=== PATIENT | male | born 1975 | race African-American/Black ===

== ENCOUNTER 2016-09-01 19:35 | Inpatient (IN) | payer MEDICAID ==
[~2016-09-01] VITALS: Ht 180.3 cm; Wt 95.0 kg
[2016-09-01] VITALS (7 sets, daily range): BP systolic 109–118; BP diastolic 55–58; PULSE 98–102; RESP 16; O2SAT 98–100
[~2016-09-01 19:35] MED LIST: LACTATED RINGER'S 1000 ML INJ 2,000 ML IV ONE; ONDANSETRON HCL 4 MG/2 ML VIAL IV PUSH ONE; PROPOFOL 200 MG/20 ML AMP IV ONE; SODIUM CHLORID 0.9% 500 ML INJ 500 ML IV ONE
[2016-09-01] MEDS ORDERED: PROPOFOL 1000 MG/100 ML INJ 100 ML ONE (19:39)
[2016-09-01] MEDS ORDERED: LORazepam 2 MG/ML VIAL ONE (19:40)
[2016-09-01] MEDS ORDERED: PROPOFOL 1000 MG/100 ML INJ 100 ML IV SCH (19:45)
--- NOTE | 2016-09-01 19:50 | PD ---
HPI Chief Complaint: headache - unresponsive Time Seen by Provider: 19:37 Travel History International Travel<30 days: No Contact w/Intl Traveler<30days: No History of Present Illness HPI Patient is a 40-year-old male who presents to emergency room after he was intubated on scene. As per EMS, they were called to his work, reports that patient began to have "the worse headache of his life" while taking out the trash today. Reports that the patient went back into his work and started screaming in pain, EMS was called, reports that when they arrived on scene, GCS was 13. Reports that he began to feel nauseous and began to vomit, reports that they put him on the stretcher and once he was in the ambulance, he became unresponsive with a GCS of 3. Patient was immediately intubated with no sedation utilized. Patient was given to sedation on route to the emergency room. There is no history that was able to be obtained at this time. [facility] Social History Tobacco Use: No Allergies-Medications (Allergen,Severity, Reaction): Coded Allergies: UNOBTAINABLE (Unverified , 09/01/16) Review of Systems ROS Limitations: Intubated Physical Exam Narrative GENERAL: severe distress SKIN: Focused skin assessment warm/dry. HEAD: Atraumatic. Normocephalic. EYES: Pupils pinpoint. No scleral icterus. No injection or drainage. No corneal reflexes ENT: No nasal bleeding or discharge. Mucous membranes pink and moist. No gag reflexes NECK: Trachea midline. No JVD. CARDIOVASCULAR: Regular rate and rhythm. No murmur appreciated. RESPIRATORY: No accessory muscle use. Clear to auscultation. Breath sounds equal bilaterally. GASTROINTESTINAL: Abdomen soft, non-tender, nondistended. Hepatic and splenic margins not palpable. MUSCULOSKELETAL: No obvious deformities. No clubbing. No cyanosis. No edema. NEUROLOGICAL: Patient unresponsive, intubated at this time, patient unresponsive to painful stimuli PSYCHIATRIC: Appropriate mood and affect; insight and judgment normal. Data Data Last Documented VS Vital Signs Date Time Temp Pulse Resp B/P Pulse Ox O2 Delivery O2 Flow Rate FiO2 09/01/16 20:48 100 100 09/01/16 20:14 98 16 109/55 09/01/16 20:13 Ventilator Orders Electrocardiogram (09/01/16 19:37) Prothrombin Time / Inr (Pt) (09/01/16 19:37) Act Partial Throm Time (Ptt) (09/01/16 19:37) Complete Blood Count With Diff (09/01/16 19:37) Comprehensive Metabolic Panel (09/01/16 19:37) Creatine Kinase (Cpk) (09/01/16 19:37) Drug Screen, Random Urine (09/01/16 19:37) Troponin I (09/01/16:37) Urinalysis - C+S If Indicated (09/01/16 19:37) Ct Brain W/O Iv Contrast(Rout) (09/01/16 19:37) Chest, Single Ap (09/01/16 19:37) Ecg Monitoring (09/01/16:37) Iv Access Insert/Monitor (09/01/16:37) Oxygen Administration (09/01/16:37) Oximetry (09/01/16:37) Urinary Catheter Insert/Apply (09/01/16 19:37) Blood Glucose (09/01/16 19:37) Propofol 1000 Mg/100 Ml Inj (Diprivan 10 (09/01/16 19:45) Propofol 1000 Mg/100 Ml Inj (Diprivan 10 (09/01/16 19:39) Lorazepam Inj (Ativan Inj) (09/01/16 19:40) Type And Screen (09/01/16 20:05) Levetiracetam Inj (Keppra Inj) (09/01/16 20:15) Nicardipine Inj (Cardene Inj) (09/01/16 20:15) B-Type Natriuretic Peptide (09/01/16 20:18) Blood Culture (09/01/16 20:18) Cta Brain W Iv Contrast W 3d (09/01/16 20:20) Cta Neck W Iv Contrast W 3d (09/01/16 20:20) Urine Culture (09/01/16 20:10) CKMB (09/01/16 19:40) CKMB% (09/01/16 19:40) Arterial Blood Gas (Abg) (09/01/16 ) Thrombin Top Soln (Thrombin Top Soln) (09/01/16 20:50) Bupivacaine-Epi Pf 0.5% Inj (Sensorcaine (09/01/16 20:50) Gelfoam 100 Top (Gelfoam 100 Top) (09/01/16 20:50) Gentamicin Inj (Gentamicin Inj) (09/01/16 20:50) Mannitol Inj (Mannitol Inj) (09/01/16 20:50) Cefazolin Inj (Ancef Inj) (09/01/16 20:51) Admit To Inpatient (09/01/16 ) Code Status (09/01/16 20:52) Vital Signs (Adult) SHANNAN.Q1H (09/01/16 20:52) Activity Bed Rest (09/01/16 20:52) ^ Elevate Head Of Bed (09/01/16 20:52) Neuro Checks . ORDERED (09/01/16 20:52) Intake + Output Q1H (09/01/16 20:52) Bedside Glucose SHANNAN.BGM (09/01/16 20:52) ^ Orogastric Tube (09/01/16 20:52) Diet Npo (09/02/16 Breakfast) Ns + Kcl 20 Meq Inj (Ns + Kcl 20 Meq Inj (09/01/16 20:52) Sodium Chloride 0.9% Flush (Ns Flush) (09/01/16 21:00) Sodium Chloride 0.9% Flush (Ns Flush) (09/01/16 21:00) Acetaminophen (Tylenol) (09/01/16 21:00) Fentanyl Inj (Fentanyl Inj) (09/01/16 21:00) Pantoprazole Inj (Protonix Inj) (09/02/16 09:00) Ondansetron Inj (Zofran Inj) (09/01/16 21:00) Albuterol-Ipratropium Neb (Duoneb Neb) (09/01/16 22:00) Albuterol Neb (Albuterol Neb) (09/01/16 21:00) Complete Blood Count With Diff (09/02/16 04:00) Comprehensive Metabolic Panel (09/02/16 04:00) Magnesium (Mg) (09/02/16 04:00) Phosphorus (Po4) (09/02/16 04:00) Electrocardiogram (09/01/16 ) Completion Engineer / Telemetry SHANNAN.Q8H (09/01/16 20:52) Scd Bilateral/Knee High SHANNAN.BID (09/01/16 20:52) Michael Bilateral/Knee High SHANNAN.QSHIFT (09/01/16 20:52) ^ Initiate Protocol (09/01/16 20:52) ^ Instruction (09/01/16 20:52) Misc Nursing Information (09/01/16 21:00) Chlorhexidine 2% Cloth (Chlorhexidine 2% (09/02/16 04:00) Chlorhexidine 2% Cloth (Chlorhexidine 2% (09/01/16 21:00) Mrsa Pcr Surveillance (09/01/16 20:52) Inpatient Certification (09/01/16 ) Admit Order (Ed Use Only) (09/01/16 21:03) Iohexol 350 Inj (Omnipaque 350 Inj) (09/01/16 21:04) Labs Laboratory Tests Test 09/01/16 09/01/16 09/01/16 19:40 20:10 20:20 White Blood Count 8.1 TH/MM3 Red Blood Count 5.01 MIL/MM3 Hemoglobin 14.1 GM/DL Hematocrit 41.9 % Mean Corpuscular Volume 83.7 FL Mean Corpuscular Hemoglobin 28.2 PG Mean Corpuscular Hemoglobin 33.8 % Concent Red Cell Distribution Width 14.4 % Platelet Count 233 TH/MM3 Mean Platelet Volume 8.4 FL Neutrophils (%) (Auto) 43.7 % Lymphocytes (%) (Auto) 46.0 % Monocytes (%) (Auto) 7.4 % Eosinophils (%) (Auto) 2.2 % Basophils (%) (Auto) 0.7 % Neutrophils # (Auto) 3.6 TH/MM3 Lymphocytes # (Auto) 3.7 TH/MM3 Monocytes # (Auto) 0.6 TH/MM3 Eosinophils # (Auto) 0.2 TH/MM3 Basophils # (Auto) 0.1 TH/MM3 CBC Comment DIFF FINAL Differential Comment Prothrombin Time 10.8 SEC Prothromb Time International 1.0 RATIO Ratio Activated Partial 22.9 SEC Thromboplast Time Sodium Level 137 MEQ/L Potassium Level 3.1 MEQ/L Chloride Level 101 MEQ/L Carbon Dioxide Level 25.3 MEQ/L Anion Gap 11 MEQ/L Blood Urea Nitrogen 19 MG/DL Creatinine 1.74 MG/DL Estimat Glomerular Filtration 53 ML/MIN Rate Random Glucose 172 MG/DL Calcium Level 8.3 MG/DL Total Bilirubin 0.3 MG/DL Aspartate Amino Transf 43 U/L (AST/SGOT) Alanine Aminotransferase 50 U/L (ALT/SGPT) Alkaline Phosphatase 83 U/L Total Creatine Kinase 670 U/L Creatine Kinase MB 2.3 NG/ML Creatine Kinase MB % 0.3 % Troponin I LESS THAN 0.02 NG/ML B-Type Natriuretic Peptide 13 PG/ML Total Protein 7.3 GM/DL Albumin 3.3 GM/DL Urine Color YELLOW Urine Turbidity CLEAR Urine pH 6.0 Urine Specific [place] 1.016 Urine Protein 300 mg/dL Urine Glucose (UA) NEG mg/dL Urine Ketones NEG mg/dL Urine Occult Blood TRACE Urine Nitrite NEG Urine Bilirubin NEG Urine Urobilinogen LESS THAN 2.0 MG/DL Urine Leukocyte Esterase NEG Urine RBC 2 /hpf Urine WBC 4 /hpf Urine Bacteria OCC /hpf Urine Mucus FEW /lpf Microscopic Urinalysis Comment CATH-CULTURE IND Urine Opiates Screen NEG Urine Barbiturates Screen NEG Urine Amphetamines Screen NEG Urine Benzodiazepines Screen NEG Urine Cocaine Screen NEG Urine Cannabinoids Screen NEG Blood Type B NEGATIVE Antibody Screen NEGATIVE Blood Bank Comment Blood Gas Puncture Site RT RADIAL Blood Gas Patient Temperature 98.6 Blood Gas HCO3 25 mmol/L Blood Gas Base Excess -0.2 mmol/L Blood Gas Oxygen Saturation 98 % Arterial Blood pH 7.35 Arterial Blood Partial 46 mmHg Pressure CO2 Arterial Blood Partial 178 mmHG Pressure O2 Arterial Blood Oxygen Content 19.0 Vol % Arterial Blood 0.6 % Carboxyhemoglobin Arterial Blood Methemoglobin 0.8 % Blood Gas Hemoglobin 13.6 G/DL Oxygen Delivery Device VENTILATOR Blood Gas Ventilator Setting Blood Gas Inspired Oxygen 100 % MDM Medical Decision Making Medical Screen Exam Complete: Yes Emergency Medical Condition: Yes Interpretation(s) EKG at 2003: NSR at 97bpm, qt/qtc: 370, 424, nonspecific t wave changes CBC & BMP Diagram 09/01/16 19:40 Differential Diagnosis Intracerebral hemorrhage, CVA Narrative Course 40-year-old male who presents to emergency room after he complained of the worst headache of his life while at work today, patient apparently was yelling and screaming in pain, when EMS arrived on scene, patient decompensated and went from a GCS of 13 to a GCS of 3. Patient had a rapid deterioration of mental status and was ultimately intubated for airway protection. While in the emergency room, patient was sent for CT as there was concerns for extra cerebral hemorrhage. I did order sedation initially,patient was given to patient as patient is not responding to any painful or verbal stimuli. Patient was placed on a teletypesetter monitor, blood pressure was 115/58, heart rate was 97, patient was 100% on the ventilator. EKG, lab work ordered, type and screen ordered. CT of the brain without IV contrast shows a large high density hemorrhage in the right cerebellar hemisphere measuring 5.3 x 4.9 cm in diameter with surrounding edema and mass effect. The fourth ventricle is compressed and obscured. There is hemorrhage extending into the right suprasellar cistern region with asymmetry. Call made to neurosurgery. Patient was given a bolus of keppra, cardene gtt ordered for blood pressure control Case reviewed with Dr. Ovalles, he will review case, plan to take patient to OR, request CT angio to evaluate further for aneurysms, request admission to medicine service Patient's at bedside, plan to obtain cta and OR for evacuation of ICH. Case reviewed with Dr. Hernandez who accepts pt to service Critical Care Narrative Aggregate critical care time was 60 minutes. Time to perform other separately billable procedures was not included in the critical care time. My time did not include minutes spent treating any other patients simultaneously or on activities that did not directly contribute to the patient's treatment. The services I provided to this patient were to treat and/or prevent clinically significant deterioration that could result in: , decompensation, deterioration I provided critical care services requiring my management, as noted below: Chart data review, documentation time, medication orders and management, vital sign assessments/reviewing monitor data, ordering and reviewing lab tests, ordering and interpreting/reviewing x-rays and diagnostic studies, care of the patient and discussion of the patient with the admitting physicians. Diagnosis Primary Impression: Spontaneous intraparenchymal intracranial hemorrhage, acute Admitting Information Admitting Physician Requests: Admit Kathy Giles DO September 01, 2016 19:50
[2016-09-01 19:57] LABS: AUTOMATED NEUTROPHIL # 3.6 TH/MM3 (1.8-7.7); BASOPHIL # 0.1 TH/MM3 (0-0.2); BASOPHIL % 0.7 % (0.0-2.0); EOSINOPHIL # 0.2 TH/MM3 (0-0.4); EOSINOPHIL % 2.2 % (0.0-4.0); HEMATOCRIT 41.9 % (39.0-51.0); HEMO FLAGS DIFF FINAL; LYMPHOCYTE # 3.7 TH/MM3 (1.0-4.8); MEAN CELL VOLUME 83.7 FL (80.0-100.0); MEAN CORPUSCULAR HEMOGLOBIN 28.2 PG (27.0-34.0); MEAN CORPUSCULAR HGB CONC 33.8 % (32.0-36.0); MONO % 7.4 % (0.0-8.0); NEUT % 43.7 % (16.0-70.0); PLATELET COUNT 233 TH/MM3 (150-450); RED BLOOD COUNT 5.01 MIL/MM3 (4.50-5.90); RED CELL DISTRIBUTION WIDTH 14.4 % (11.6-17.2); WHITE BLOOD COUNT 8.1 TH/MM3 (4.0-11.0)
--- NOTE | 2016-09-01 19:57 | RADRPT ---
EXAM DATE/TIME: 09/01/2016 19:46 1 [facility] COMPARISON: No previous studies available for comparison. INDICATIONS : Evaluate for CVA. RADIATION DOSE: 56.39 CTDIvol (mGy) MEDICAL HISTORY : Non-responsive. SURGICAL HISTORY : Non-responsive. ENCOUNTER: Initial ACUITY: 1 day PAIN SCALE: Non-responsive LOCATION: Bilateral cranial TECHNIQUE: Multiple contiguous axial images were obtained of the head. Using automated exposure control and adj ustment of the mA and/or kV according to patient size, radiation dose was kept as low as reasonably a chievable to obtain optimal diagnostic quality images. FINDINGS: There is a large high density hemorrhage in the right cerebellar hemisphere measuring up to 5.3 x 4.9 cm in diameter. There is surrounding edema with mass effect. The fourth ventricle is compressed and obscured. There is hemorrhage extending into the right suprasellar cistern region. The lateral ventri cles are at the upper limits of normal. No additional bleed is identified. The bone windows demonstra te no evidence of fracture. CONCLUSION: Large acute high density hemorrhage in the right cerebellar hemisphere with mass effe ct on the fourth ventricle. There is hemorrhage extending into the right suprasellar cisterns with as ymmetry. Ag Saxena MD on September 01, 2016 at 19:53 Board Certified Radiologist. This report was verified electronically.
--- NOTE | 2016-09-01 20:07 | RADRPT ---
EXAM DATE/TIME: 09/01/2016 19:52 [facility] COMPARISON: No previous studies available for comparison. INDICATIONS : Shortness of breath. Metal status changes and acute intracerebral hemorrhage status post intubation. MEDICAL HISTORY : Non-responsive SURGICAL HISTORY : Non-responsive ENCOUNTER: Initial ACUITY: 1 day PAIN SCORE: Non-responsive. LOCATION: Bilateral chest FINDINGS: A single AP semierect portable view of the chest was obtained and demonstrates an endotracheal tube i n place with the tip above the level of clavicles and approximately 4 cm above the level of the jacy a. This study is Midinspiratory with crowding of the lung vasculature. There is mild patchy opacity i n the perihilar regions and lung bases left greater than right. There are air bronchograms in the lef t lung base with obscuration of portions of the hemidiaphragm. The heart size appears within normal l imits. There is overlying electrocardiogram leads. CONCLUSION: 1. Endotracheal tube in place with the tip 4 cm above the dustin. 2. Midinspiratory exam with bilateral patchy opacity left greater than right. This could represent as piration pneumonia or early pulmonary edema. Ag Saxena MD on September 01, 2016 at 20:02 Board Certified Radiologist. This report was verified electronically.
[2016-09-01 20:08] LABS: APTT (PATIENT) 22.9 SEC (24.3-30.1); PROTHROMBIN TIME - PATIENT 10.8 SEC (9.8-11.6)
[2016-09-01] MEDS ORDERED: niCARdipine INJ 25 MG in SODIUM CHLOR 0.9% 250 ML INJ 250 ML IV SCH (20:15)
[2016-09-01] MEDS ORDERED: levETIRAcetam INJ 1,000 MG in SODIUM CHLORIDE 0.9% INJ 100 ML IV ONE (20:15)
[2016-09-01 20:26] LABS: BACTERIA, URINE OCC /hpf; BLOOD, URINE TRACE (NEG); GLUCOSE,URINE NEG (NEG); KETONE, URINE NEG (NEG); MUCUS URINE FEW /lpf (OCC); NITRITE,URINE NEG (NEG); URINE COLOR YELLOW (YELLW/STRAW)
[2016-09-01 20:27] LABS: ALKALINE PHOSPHATASE 83 U/L (45-117); ALT (GPT) 50 U/L (12-78); ANION GAP 11 MEQ/L (5-15); AST (GOT) 43 U/L (15-37); BICARBONATE 25.3 MEQ/L (21.0-32.0); BLOOD UREA NITROGEN 19 MG/DL (7-18); CHLORIDE 101 MEQ/L (98-107); CREATINE KINASE 670 U/L (39-308); GLOMERULAR FILTRATION RATE 53 ML/MIN (>89); POTASSIUM 3.1 MEQ/L (3.5-5.1); SODIUM (NA) 137 MEQ/L (136-145); TOTAL BILIRUBIN ADULT 0.3 MG/DL (0.2-1.0)
[2016-09-01 20:27] LABS: COMMENT (UR) CATH-CULTURE IND; CULTURE IF INDICATED CATH CULTURE IND
[2016-09-01 20:32] LABS: AMPHETAMINE, URINE NEG (NEG); BARBITURATES, URINE NEG (NEG); COCAINE, URINE NEG (NEG)
[2016-09-01 20:38] LABS: BLOOD GAS BASE EXCESS -0.2 mmol/L (-2-2); BLOOD GAS CARBOXYHEMOGLOBIN 0.6 % (0-4); BLOOD GAS HCO3 25 mmol/L (22-26); BLOOD GAS METHEMOGLOBIN 0.8 % (0-2); BLOOD GAS O2 HGB SATURATION 98 % (90-100); BLOOD GAS PCO2 46 mmHg (38-42); BLOOD GAS PO2 178 mmHG (61-120); BLOOD GAS TOTAL HGB 13.6 G/DL (12.0-16.0); CRITICAL VALUE NO; DRAW SITE RT RADIAL; FIO2 100 %; NUMBER OF ARTERIAL PUNCTURES 1; OXYGEN DEVICE VENTILATOR; STAT YES; TEMP CORR TO 98.6; ULNAR PULSE PRESENT
[2016-09-01 20:40] LABS: CKMB 2.3 NG/ML (0.5-3.6)
[2016-09-01] MEDS ORDERED: THROMBIN (TOPICAL) 5,000 UNIT VIAL ONE (20:50)
[2016-09-01] MEDS ORDERED: GELFOAM SIZE 100 ONE (20:50)
[2016-09-01] MEDS ORDERED: BUPIVACAINE/EPINEPHRINE 0.5% PF 30 ML VIAL ONE (20:50)
[2016-09-01] MEDS ORDERED: MANNITOL INJ 50 ML ONE (20:50)
[2016-09-01] MEDS ORDERED: GENTAMICIN SULFATE 80 MG/2 ML VIAL ONE (20:50)
[2016-09-01] MEDS ORDERED: ceFAZolin INJ 1,000 MG VIAL ONE (20:51)
[2016-09-01] MEDS ORDERED: SODIUM CHLORIDE 0.9% FLUSH 10 ML FLUSH PRN (21:00)
[2016-09-01] MEDS ORDERED: ACETAMINOPHEN 325 MG TAB OG-TUBE PRN (21:00)
[2016-09-01] MEDS ORDERED: CHLORHEXIDINE GLUCONATE 2 % 1 PACK (2 CLOTHS) TOP PRN (21:00)
[2016-09-01] MEDS ORDERED: ONDANSETRON HCL 4 MG/2 ML VIAL IV PRN (21:00)
[2016-09-01] MEDS ORDERED: MISCELLANEOUS NURSING INFORMATION XX SCH (21:00)
[2016-09-01] MEDS ORDERED: IOHEXOL 350 MG/ML 10 ML VIAL (for RAD DIAG) IV ONE (21:04)
[2016-09-01] MEDS ORDERED: POTASSIUM PHOSPHATE MONOBASIC 500 MG TAB PO/TUBE PRN (21:15)
[2016-09-01] MEDS ORDERED: POTASSIUM CHLORIDE 25 MEQ EFFERVESCENT TAB PO PRN (21:15)
[2016-09-01] MEDS ORDERED: DEXTROSE 50% IN WATER 50 ML VIAL(D50) IV PRN (21:15)
[2016-09-01] MEDS ORDERED: POTASSIUM CHLOR 20 MEQ PREMIX 100 ML IV PRN ×2 (21:15)
[2016-09-01] MEDS ORDERED: POTASSIUM CHLOR 40 MEQ PREMIX 100 ML IV PRN (21:15)
[2016-09-01] MEDS ORDERED: SODIUM PHOSPHATE INJ 30 MMOL in SODIUM CHLOR 0.9% 250 ML INJ 240 ML IV PRN (21:15)
[2016-09-01] MEDS ORDERED: POTASSIUM PHOSPHATE MONOBASIC 500 MG TAB PO PRN (21:15)
[2016-09-01] MEDS ORDERED: MAGNESIUM SULFATE INJ 4 GM in SODIUM CHLORIDE 0.9% INJ 92 ML IV PRN (21:15)
[2016-09-01] MEDS ORDERED: GLUCAGON 1 MG/ML VIAL OTHER PRN (21:15)
[2016-09-01] MEDS ORDERED: MAGNESIUM OXIDE 400 MG TAB PO PRN (21:15)
[2016-09-01] MEDS ORDERED: MAGNESIUM SULFATE INJ 2 GM in SODIUM CHLORIDE 0.9% INJ 96 ML IV PRN (21:15)
--- NOTE | 2016-09-01 21:23 | HHI.HP ---
[facility] Service Critical Care Medicine Primary Care Physician Unknown Admission Diagnosis Diagnosis: Travel History International Travel<30 Days: No Contact w/Intl Traveler <30 Da: No Traveled to Known Affected Are: No History of Present Illness 40-year-old male with reportedly no significant past medical history who was at work today and was taking out the garbage when he developed "the worse headache of his life". He was screaming in pain and [facility] was called. Upon [facility] arrival his GCS was 13 but rapidly deteriorated to GCS 3. He vomited. He was intubated on the scene without any drugs. CT brain demonstrated a large right cerebellar hemorrhage (4.9 x 5.7 cm) with effacement of the fourth ventricle. He has a very poor neurologic exam with absence of pupillary, corneal, gag, cough, oculocephalic reflexes. Not overbreathing vent but did not formally test apnea. Dr. Ovalles discussed with and she is requesting operative management. He is being taken for emergent CT angiogram and then to OR for evacuation by Dr. Ovalles. Review of Systems ROS Limitations: Clinical Condition, Intubated, Altered Mental Status, Unresponsive Past Family Social History Allergies: Coded Allergies: UNOBTAINABLE (Unverified , 09/01/16) Past Medical History Has been seeing a urologist for urinary incontinence Past Surgical History Sinus surgery ~ 10 years ago. states he was hospitalized for 2 months for this. Reported Medications None Family History unaware of any significant family medical history. 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 SKIN: Warm and dry. HEAD: Atraumatic. Normocephalic. EYES: Pupils 1 mm nonreactive bilaterally. No scleral icterus. No injection or drainage. ENT: No nasal bleeding or discharge. Mucous membranes pink and moist. NECK: Trachea midline. No JVD. CARDIOVASCULAR: . RESPIRATORY: GASTROINTESTINAL: Abdomen soft, non-tender, nondistended. Bowel sounds hypoactive : Kumar in place MSK: No obvious deformity. No edema NEUROLOGICAL: Pupils 1 mm nonreactive bilaterally. No corneal reflex, no gag, no cough, no oculocephalic reflex, no motor response to deep noxious stimuli. Laboratory Laboratory Tests Test 09/01/16 09/01/16 09/01/16 19:40 20:10 20:20 White Blood Count 8.1 Red Blood Count 5.01 Hemoglobin 14.1 Hematocrit 41.9 Mean Corpuscular Volume 83.7 Mean Corpuscular Hemoglobin 28.2 Mean Corpuscular Hemoglobin 33.8 Concent Red Cell Distribution Width 14.4 Platelet Count 233 Mean Platelet Volume 8.4 Neutrophils (%) (Auto) 43.7 Lymphocytes (%) (Auto) 46.0 Monocytes (%) (Auto) 7.4 Eosinophils (%) (Auto) 2.2 Basophils (%) (Auto) 0.7 Neutrophils # (Auto) 3.6 Lymphocytes # (Auto) 3.7 Monocytes # (Auto) 0.6 Eosinophils # (Auto) 0.2 Basophils # (Auto) 0.1 CBC Comment DIFF FINAL Differential Comment Prothrombin Time 10.8 Prothromb Time International 1.0 Ratio Activated Partial 22.9 Thromboplast Time Sodium Level 137 Potassium Level 3.1 Chloride Level 101 Carbon Dioxide Level 25.3 Anion Gap 11 Blood Urea Nitrogen 19 Creatinine 1.74 Estimat Glomerular Filtration 53 Rate Random Glucose 172 Calcium Level 8.3 Total Bilirubin 0.3 Aspartate Amino Transf 43 (AST/SGOT) Alanine Aminotransferase 50 (ALT/SGPT) Alkaline Phosphatase 83 Total Creatine Kinase 670 Creatine Kinase MB 2.3 Creatine Kinase MB % 0.3 Troponin I LESS THAN 0.02 Total Protein 7.3 Albumin 3.3 Urine Color YELLOW Urine Turbidity CLEAR Urine pH 6.0 Urine Specific [place] 1.016 Urine Protein 300 Urine Glucose (UA) NEG Urine Ketones NEG Urine Occult Blood TRACE Urine Nitrite NEG Urine Bilirubin NEG Urine Urobilinogen LESS THAN 2.0 Urine Leukocyte Esterase NEG Urine RBC 2 Urine WBC 4 Urine Bacteria OCC Urine Mucus FEW Microscopic Urinalysis Comment CATH-CULTURE IND Urine Opiates Screen NEG Urine Barbiturates Screen NEG Urine Amphetamines Screen NEG Urine Benzodiazepines Screen NEG Urine Cocaine Screen NEG Urine Cannabinoids Screen NEG Blood Gas Puncture Site RT RADIAL Blood Gas Patient Temperature 98.6 Blood Gas HCO3 25 Blood Gas Base Excess -0.2 Blood Gas Oxygen Saturation 98 Arterial Blood pH 7.35 Arterial Blood Partial 46 Pressure CO2 Arterial Blood Partial 178 Pressure O2 Arterial Blood Oxygen Content 19.0 Arterial Blood 0.6 Carboxyhemoglobin Arterial Blood Methemoglobin 0.8 Blood Gas Hemoglobin 13.6 Oxygen Delivery Device VENTILATOR Blood Gas Ventilator Setting Blood Gas Inspired Oxygen 100 Date/Time Procedure Status Source Growth 09/01/16 20:10 Urine Culture Received Urine Catheterized Urine Pending Result Diagram: 09/01/16193909/01/161939 Assessment and Plan Assessment and Plan NEURO: Acute cerebellar hemorrhage (ICH Score 4) CT brain 09/01/16 - 4.9 x 5.3 cm right cerebellar hemorrhage with effacement of the fourth ventricle. CTA 09/01/16 - No e/o vascular abnormality. s/p Suboccipital craniectomy, cerebellar hemorrhage evacuation, ventriculostomy by Dr. Ovalles 09/01/16 Ventric at + 10 cm H20 per NSG, ICP 7 Received Keppra 1000 mg IV load in the emergency department. Continue Keppra 500 mg IV every 12 Mannitol 50 gram IV preoperatively 3% NaCl @ 30 ml/hr with serial sodium and serum osm. Maintain normothermia with Ofirmev/cooling blanket prn temp >100.4. (Ofirmev chosen due to vomiting, can transition to enteral tylenol when clinically appropriate) GCS 3 preoperatively and postoperatively. Preoperatively, had absent brainstem reflexes. Postoperatively, gag and cough present but lacks pupil, corneal, oculocephalic reflex. Initially on no sedation in ED or ISC. Initiated Propofol due to gagging and vomiting, coughing. Target RASS -2, patient comfort and vent synchrony, RESP: Acute respiratory failure Aspiration Intubated at the scene by E VAC with no sedation End tidal CO2 monitoring. Target PaCO2 35-40. Currently at target on PRVC TV 550 R 20 PEEP 5 FIO2 50% Duoneb q6 hours; Albuterol q2 hours prn wheezing CV: Malignant Hypertension Labetalol 10 mg IV q4 hours prn SBP <150. Nicardipine to maintain systolic blood pressure less than 150 Obtain baseline EKG. GI: Vomiting OG tube to low intermittent wall suction Zofran 4 mg IV q6 hours FEN/RENAL: Renal insufficiency, unknown baseline creatinine Hypokalemia 0.9 NaCl at 20 mEq of KCl per liter at 100 mL per hour Kumar in place due to critically ill patient in need of accurate I/O monitoring and at risk for urinary obstruction Monitor I/O and creatinine Monitor electrolytes and replace as indicated per ICU electively replacement protocol. ID: Received Perioperative cefazolin. U/a with occasional bacteria, culture indicated, followup urine culture. Large amount of sputum production and e/o aspiration. Send sputum culture. Unasyn 3 gram IV q6 hours. HEME: Monitor CBC, post op CBC pending. Coags WNL. Patient was not on anticoagulant or antiplatelet therapy. ENDO: Acute stress hyperglycemia Monitor bedside glucose and initiate low-dose insulin sliding scale as indicated PROPH: SCDs and teds for DVT prophylaxis. Pharmacologic DVT prophylaxis is contraindicated due to acute cerebellar hemorrhage. Protonix 40 mg IV daily for stress ulcer prophylaxis. ACCESS: Left radial art line placed in OR 09/01 #1. updated at bedside. She is aware of poor prognosis for functional recovery based on presenting GCS. She remains hopeful. Desires full code. Critical care time 60 minutes exclusive of separately billable procedures. Freda Hernandez MD September 01, 2016 21:23
[2016-09-01] MEDS: RESP: ALBUTEROL 2.5 MG/IPRATROPIUM 0.5 MG NEB (SCH) INH (21:37)
--- NOTE | 2016-09-01 21:43 | MB ---
cc: JA MATA M.D. DATE OF CONSULTATION 09/01/2016 REASON FOR CONSULTATION Cerebellar hemorrhage HISTORY OF PRESENT ILLNESS A 40-year-old -Japanese gentleman who presented to the emergency room with a Greenfield coma score of three comatose. He had an acute decline in his mental status, initially started out with a headache while at work and subsequently progressively worsened, confusion and nausea and vomiting. On presentation to the emergency room, he was intubated and he was hypertensive initially. The systolic blood pressure was in the 170s. CT scan of the head obtained reveals a large right cerebellar hemisphere approximately 5 cm hemorrhage which extends into the lateral portion of the brainstem/isaac. There is compression of the fourth ventricle, although mild hydrocephalus with some temporal horn dilatation. In communication with the family remembers and , he does not appear have any significant past medical history. PAST MEDICAL HISTORY Hypertension, transient loss of vision following sinusitis 10 years ago. MEDICATIONS He was prescribed medications for his hypertension but he was having some urinary issues and was not taking these medications as per his . ALLERGIES NO KNOWN DRUG ALLERGIES SOCIAL HISTORY He is . His is here and other family members are on their way. He drinks alcohol on occasional basis and does not smoke. REVIEW OF SYSTEMS Unobtainable. The patient is comatose. LABORATORY FINDINGS White blood cell count 8.1, hemoglobin 14.1, platelet count 233, PT 10.8, INR 1.0, PT 22.9. Sodium 137, potassium 3.1, BUN 19, creatinine 1.74, glucose 172. PHYSICAL EXAMINATION VITAL SIGNS: Pulse is 98. Respiratory rate 16, blood pressure 109/55, oxygen saturations 100% on 100% FIO2. HEAD: No Jackson's or raccoon sign, atraumatic. NECK: Supple. CHEST: Clear bilaterally HEART: Mild tachycardia, normal S1, S2. ABDOMEN: Soft, nontender. EXTREMITIES: No cyanosis, edema or deformity or trauma. NEUROLOGIC: He does not open his eyes to painful stimulation. He has not received any sedation or muscle validation at this point. Pupils are pinpoint and nonreactive. He has negative corneal reflex. Negative doll's reflex. Negative gag reflex. Negative cough reflex and no motor response to painful stimulation. No spontaneous respirations over the ventilator are noted. Greenfield coma score is 3 with loss of brainstem reflexes. IMPRESSION Large right cerebellar hemisphere hemorrhage with extension into the brainstem in the lateral portion of the isaac with some mild hydrocephalus. This is likely a hypertensive bleed, although cannot rule out any underlying vascular malformation or abnormality. This is unfortunately a devastating injury. PLAN I have discussed the findings with the patient's at the bedside as well as this has also been related by the emergency room physician that his prognosis is very poor irrespective of any further treatment. The inquired about possible hematoma evacuation which she was informed this could be undertaken but would be a very heroic measure and very low likelihood of any functional recovery. She would like to entertain surgical decompression. We will continue with hyperventilation. He has received mannitol and keep his head of bed elevated. The operating room has been notified and they are assembling an emergency team for the procedure. We will also in the meantime obtain a CT angiogram of the brain to rule out any underlying vascular abnormality. Discussed with emergency room physician, Dr. Giles, and pianos and organs salesperson, Dr. Hernandez. MD MAJOR Gutiérrez/ /9:23 PM /9:31 PM ELMO
[2016-09-01] MEDS ORDERED: ceFAZolin INJ 1,000 MG VIAL IV ONE (21:47)
[2016-09-01] MEDS: INSULIN ASPART SUPPLEMENTAL SCALE SQ SCH (22:00)
[2016-09-01] MEDS ORDERED: fentaNYL CITRATE 250 MCG/5 ML AMP ONE (22:49)
--- NOTE | 2016-09-01 22:57 | RADRPT ---
EXAM DATE/TIME: 09/01/2016 20:55 [facility] COMPARISON: No previous studies available for comparison. INDICATIONS : Evaluate for anuerysm. IV CONTRAST: 80 cc Omnipaque 350 (iohexol) IV ; Cumulative dose for multiple exams. RADIATION DOSE: 28.76 CTDIvol (mGy) ; Combined studies MEDICAL HISTORY : Non-responsive. SURGICAL HISTORY : Non-responsive. ENCOUNTER: Initial ACUITY: 1 day PAIN SCALE: Non-responsive LOCATION: carotids Elevated flow velocities and ICA/CCA ratios have been found to correlate with increased degrees of vessel stenosis, calculated as percentage of diameter relative to a normal segment of distal ICA/CCA. TECHNIQUE: Volumetric scanning was performed using a multirow detector CT scanner. The data was post processed with a variety of visualization algorithms including full-volume maximum intensity projection, multip lanar sliding thin-slab reformation, curved-planar reformation, and surface-rendering techniques. Us ing automated exposure control and adjustment of the mA and/or kV according to patient size, radiatio n dose was kept as low as reasonably achievable to obtain optimal diagnostic quality images. FINDINGS: AORTIC ARCH: There is a three-vessel origin of the great vessels from the aorta. No evidence of ostial narrowing. RIGHT CAROTID: The common carotid artery is intact. The carotid bulb has a normal configuration without ulceration o r narrowing. The internal carotid artery lumen is smooth without stenosis. The external carotid shelby ry is intact. LEFT CAROTID: The common carotid artery is intact. The carotid bulb has a normal configuration without ulceration or narrowing. The internal carotid artery lumen is smooth without stenosis. The external carotid ar kris is intact. VERTEBRALS: The vertebral arteries have a symmetric diameter. No stenotic lesions are seen. CONCLUSION: Unremarkable exam. The carotid arteries are intact. Ag Saxena MD on September 01, 2016 at 22:53 Board Certified Radiologist. This report was verified electronically.
--- NOTE | 2016-09-01 23:07 | RADRPT ---
EXAM DATE/TIME: 09/01/2016 20:55 [facility] COMPARISON: CHEST SINGLE AP, September 01, 2016, 19:52. CT BRAIN W/O CONTRAST, September 01, 2016, 19:46. INDICATIONS : Evaluate for aneurysm. IV CONTRAST: 80 cc Omnipaque 350 (iohexol) IV ; Cumulative dose for multiple exams. RADIATION DOSE: 28.76 CTDIvol (mGy) ; Combined studies MEDICAL HISTORY : Non-responsive. SURGICAL HISTORY : Non-responsive. ENCOUNTER: Initial ACUITY: 1 day PAIN SCALE: Non-responsive LOCATION: cranial TECHNIQUE: Volumetric scanning was performed using a multi-row detector CT scanner. The data was post processed with a variety of visualization algorithms including full volume maximum intensity projection, multi -planar sliding thin slab reformation, curved planar reformation, and surface rendering techniques. Using automated exposure control and adjustment of the mA and/or kV according to patient size, radiat ion dose was kept as low as reasonably achievable to obtain optimal diagnostic quality images. FINDINGS: There is excellent visualization of the major intracranial arteries out to the second-order branch ve ssels. There is no evidence for aneurysm, vessel truncation or stenosis, and no evidence for vascula r malformation. Large hemorrhage in the right cerebellum is identified with significant mass effect on midbrain and f ourth ventricle. The upper chest is visualized and there is some degree of infiltrate in the upper cristina ngs and possibly pleural effusions bilaterally. CONCLUSION: The etiology of the patient's right cerebellar h hemorrhage is not identified and there appears to be some infiltrates and possible pleural effusions in the upper lungs that are visualized. Erika Bob MD on September 01, 2016 at 22:57 Board Certified Radiologist. This report was verified electronically.
--- NOTE | 2016-09-01 23:15 | PD.OP ---
Operative Report Date of Surgery: September 01, 2016 Preoperative Diagnosis: Large right cerebellar hemisphere hemorrhage with extension into the isaac Postoperative Diagnosis: Same Procedure: Right suboccipital craniectomy with evacuation of cerebellar hemorrhage; right frontal bur hole ventriculostomy placement; microsurgical technique Anesthesia: Gen. endotracheal by Rut Kowalski Surgeon: Gutierrez Ovalles M.D. Hydrographic Surveyor(s): Tan Fountain Operation and Findings: Following administration of general endotracheal anesthesia, 2 g Ancef intravenously was administered and patient received mannitol prior to this. After invasive lines were placed he was turned on a lateral position with beanbags with an axillary roll and right side up on headrest with the neck slightly flexed. The posterior occipital region and right frontal region was then shaved and prepped with ChloraPrep and sterilely draped. A linear paramedian incision was then made after infiltrating the scalp with 0.5% Marcaine with epinephrine incision extending down through the galea. The occipital fascia also incised and the muscle fibers split in the midline avascular plane and detached from the occipital bone down to the foramen magnum. Using an M2 drill bar craniectomy was undertaken and bone wax at the edges for hemostasis. The dura was opened in a Y-shaped format. Further dissection was undertaken using microtechnique with microscope magnification. A corticectomy was made in the cerebellar hemisphere and organized hematoma along with the hemolyzed blood was encountered under significant pressure. The hematoma was evacuated and and CSF also drained from the cisterna magna to decompress the posterior fossa. After evacuation of the hematoma the hematoma bed was then cauterized with bipolar cautery and Gelfoam and thrombin also used for hemostasis. The cerebellar hemisphere was more relaxed and pulsatile at this point. The dura was approximated using 4 Nurolon interrupted sutures in a watertight fashion. Compressed Gelfoam along with the of DuraSeal was used for reinforcement of the durotomy. The bone dust from the craniectomy was then packed reconstructing the cranial defect. The area prior to this copiously irrigated. The muscle fascia was approximated using 2-0 Vicryl in a sutures in the galea partially using 2-0 Vicryl in a stitches and finds concords with john. A sterile dressing was then applied and she was in turn in a supine position and the Ewing headrest removed. The right frontal region was then shaved and prepped with ChloraPrep and sterilely draped. Using landmarks of 11 cm behind the nasion and 3 cm right of the midline a 2 cm scalp incision was made after infiltrating with 0.5% Marcaine with epinephrine solution. Using the drill bit the bur hole was made and the underlying dura also opened. Bactiseal ventriculostomy catheter was then passed into the lateral ventricle using ipsilateral pupillary midline and the external auditory meatus is landmarks and blood-tinged CSF was expressed with opening pressure this point 18 cm of water. The distal end of the catheter was tunneled with a trocar and secured the exit site and the scalp incision was approximated using john. Sterile pressure dressing was then applied and he was then taken to recovery room. There were no intraoperative complications and all sponge and needle count was correct at the end of the procedure. Estimated blood loss 200 cc. Gutierrez Ovalles MD September 01, 2016 23:15
[2016-09-02] VITALS (18 sets, daily range): BP systolic 130–141; BP diastolic 72–94; PULSE 76–100; RESP 18–20; TEMP 96.8–100.4; O2SAT 100
[2016-09-02] MEDS: NS + KCL 20 MEQ INJ 1,000 ML IV SCH ×3 (00:34→20:15)
[2016-09-02] MEDS: SODIUM CHLORIDE 0.9% FLUSH 10 ML FLUSH SCH ×3 (00:34→20:46)
[2016-09-02 00:37] LABS: HEMATOCRIT 43.4 % (39.0-51.0); MEAN CELL VOLUME 83.2 FL (80.0-100.0); MEAN CORPUSCULAR HEMOGLOBIN 27.6 PG (27.0-34.0); MEAN CORPUSCULAR HGB CONC 33.2 % (32.0-36.0); PLATELET COUNT 239 TH/MM3 (150-450); RED BLOOD COUNT 5.21 MIL/MM3 (4.50-5.90); RED CELL DISTRIBUTION WIDTH 14.4 % (11.6-17.2); REVIEW FLAG FINAL; WHITE BLOOD COUNT 14.4 TH/MM3 (4.0-11.0)
[2016-09-02] MEDS: AMPICILLIN-SULBACTAM INJ 3 GM in SODIUM CHLORIDE 0.9% INJ 100 ML IV SCH ×4 (00:37→17:51)
[2016-09-02 00:52] LABS: BICARBONATE 23.3 MEQ/L (21.0-32.0); POTASSIUM 3.2 MEQ/L (3.5-5.1)
[2016-09-02 00:57] LABS: BLOOD GAS BASE EXCESS -3.6 mmol/L (-2-2); BLOOD GAS CARBOXYHEMOGLOBIN 0.7 % (0-4); BLOOD GAS HCO3 21 mmol/L (22-26); BLOOD GAS METHEMOGLOBIN 0.8 % (0-2); BLOOD GAS O2 HGB SATURATION 97 % (90-100); BLOOD GAS OXYGEN CONTENT 20.6 Vol % (12.0-20.0); BLOOD GAS PCO2 35 mmHg (38-42); BLOOD GAS PO2 133 mmHG (61-120); CRITICAL VALUE NO; FIO2 40 %; OXYGEN DEVICE VENTILATOR; TEMP CORR TO 98.6
[2016-09-02 00:58] LABS: DRAW SITE ALINE; STAT NO
[2016-09-02 02:14] LABS: MAGNESIUM 1.5 MG/DL (1.5-2.5)
--- NOTE | 2016-09-02 02:16 | PD.PROCEDR ---
Procedure Note Procedure DATE: 09/02/16 CENTRAL LINE PLACEMENT: Left internal jugular vein. INDICATION: Central venous access CONSENT Informed consent for procedure was obtained from patient's after discussion of risks, benefits, alternatives. Signed consent is on the chart. DESCRIPTION OF THE PROCEDURE The patient was placed in supine position, mild Trendelenburg.. The skin was cleansed with Chloraprep. Additional barrier precautions included large sterile drape, sterile gloves, sterile gown, face mask, and hat. 1 % lidocaine was used for local anesthesia. Initial attempts 3 at left subclavian site unsuccessful. Under direct ultrasound guidance and on single attempt, the vein was accessed with an introducer needle. The guide wire was advanced and the tract was dilated. Using Seldinger technique a 7 Maltese 20 cm antimicrobial coated triple-lumen catheter was advanced to a depth of 18 centimeters. The guide wire was removed. All ports had good return of dark venous blood and flushed easily with saline. The central line was secured with 2.0 silk. A sterile dressing with antibiotic disc was applied. ESTIMATED BLOOD LOSS: Minimal COMPLICATIONS: No apparent complications. STAT chest x-ray is pending Freda Hernandez MD September 02, 2016 02:16
[2016-09-02] MEDS: CHLORHEXIDINE GLUCONATE 2 % 1 PACK (2 CLOTHS) TOP SCH (02:34)
[2016-09-02] MEDS: 3% SALINE INJ 500 ML IV SCH ×2 (02:35→16:00)
[2016-09-02] MEDS: POTASSIUM CHLOR 40 MEQ PREMIX 100 ML IV PRN ×2 (02:36→04:54)
--- NOTE | 2016-09-02 03:08 | RADRPT ---
EXAM DATE/TIME: 09/02/2016 02:06 [facility] COMPARISON: CHEST SINGLE AP, September 01, 2016, 19:52. INDICATIONS : Central line placement. MEDICAL HISTORY : None. SURGICAL HISTORY : None. ENCOUNTER: Subsequent ACUITY: 2 days PAIN SCORE: Non-responsive. LOCATION: Bilateral chest FINDINGS: ET tube is present with tip overlapping approximately 4 cm above the dustin. NG tube is present with tip in the stomach. Left IJ line is present with tip overlapping the expected region of the SVC. Ther e is slight improvement in pulmonary edema since the prior examination with residual edema remaining. Heart and mediastinum are unremarkable for technique. CONCLUSION: Improvement in pulmonary edema. Erika Bob MD on September 02, 2016 at 3:05 Board Certified Radiologist. This report was verified electronically.
[2016-09-02] MEDS: PROPOFOL 1000 MG/100 ML INJ 100 ML IV SCH ×5 (03:57→22:29)
[2016-09-02] MEDS: INSULIN ASPART SUPPLEMENTAL SCALE SQ SCH ×4 (04:00→22:00)
[2016-09-02] MEDS: RESP: ALBUTEROL 2.5 MG/IPRATROPIUM 0.5 MG NEB (SCH) INH ×4 (04:12→20:59)
[2016-09-02 05:54] LABS: BLOOD GAS BASE EXCESS -3.7 mmol/L (-2-2); BLOOD GAS CARBOXYHEMOGLOBIN 0.9 % (0-4); BLOOD GAS HCO3 20 mmol/L (22-26); BLOOD GAS METHEMOGLOBIN 1.1 % (0-2); BLOOD GAS O2 HGB SATURATION 97 % (90-100); BLOOD GAS OXYGEN CONTENT 19.9 Vol % (12.0-20.0); BLOOD GAS PCO2 29 mmHg (38-42); BLOOD GAS PO2 135 mmHg (61-120); BLOOD GAS TOTAL HGB 14.5 G/DL (12.0-16.0); TEMP CORR TO 98.6
[2016-09-02 05:55] LABS: CRITICAL VALUE NO; DRAW SITE ALINE; FIO2 30 %; OXYGEN DEVICE VENTILATOR; STAT NO
[2016-09-02 06:59] LABS: AUTOMATED NEUTROPHIL # 13.5 TH/MM3 (1.8-7.7); BASOPHIL % 0.2 % (0.0-2.0); EOSINOPHIL % 0.1 % (0.0-4.0); HEMATOCRIT 42.2 % (39.0-51.0); HEMO FLAGS DIFF FINAL; LYMPH % 4.2 % (9.0-44.0); LYMPHOCYTE # 0.7 TH/MM3 (1.0-4.8); MEAN CELL VOLUME 82.7 FL (80.0-100.0); MEAN CORPUSCULAR HEMOGLOBIN 27.7 PG (27.0-34.0); MEAN CORPUSCULAR HGB CONC 33.4 % (32.0-36.0); MONO % 8.5 % (0.0-8.0); PLATELET COUNT 215 TH/MM3 (150-450); RED CELL DISTRIBUTION WIDTH 14.2 % (11.6-17.2); WHITE BLOOD COUNT 15.5 TH/MM3 (4.0-11.0)
[2016-09-02 07:02] LABS: ALKALINE PHOSPHATASE 56 U/L (45-117); ALT (GPT) 46 U/L (12-78); ANION GAP 10 MEQ/L (5-15); AST (GOT) 33 U/L (15-37); BICARBONATE 22.5 MEQ/L (21.0-32.0); BLOOD UREA NITROGEN 17 MG/DL (7-18); CHLORIDE 106 MEQ/L (98-107); GLOMERULAR FILTRATION RATE 69 ML/MIN (>89); MAGNESIUM 1.4 MG/DL (1.5-2.5); POTASSIUM 4.7 MEQ/L (3.5-5.1); SODIUM (NA) 138 MEQ/L (136-145); TOTAL BILIRUBIN ADULT 0.5 MG/DL (0.2-1.0)
--- NOTE | 2016-09-02 07:50 | HHI.CCPN ---
Subjective Remarks/Hospital Course Hospital Course: 40-year-old male with reportedly no significant past medical history who was at work today and was taking out the garbage when he developed "the worse headache of his life". He was screaming in pain and [facility] was called. Upon [facility] arrival his GCS was 13 but rapidly deteriorated to GCS 3. He vomited. He was intubated on the scene without any drugs. CT brain demonstrated a large right cerebellar hemorrhage (4.9 x 5.7 cm) with effacement of the fourth ventricle. He has a very poor neurologic exam with absence of pupillary, corneal, gag, cough, oculocephalic reflexes. Not overbreathing vent but did not formally test apnea. Dr. Ovalles discussed with and she is requesting operative management. He is being taken for emergent CT angiogram and then to OR for evacuation by Dr. Ovalles. Subjective: 09/02: decompressive craniectomy overnight. per report, when he returned from the OR he apparently had a +gag. this morning remains encephalopathic. Objective Vital Signs Date Time Temp Pulse Resp B/P Pulse Ox O2 Delivery O2 Flow Rate FiO2 09/02/16 06:00 83 09/02/16 04:12 100 30 09/02/16 04:00 97.5 20 132/86 09/01/16 20:13 Ventilator Result Diagram: 09/02/16 0600 09/02/16 0600 Other Results Laboratory Tests Test 09/01/16 09/02/16 09/02/16 20:20 00:22 05:43 Blood Gas Puncture Site RT RADIAL JOEL MALDONADO Blood Gas Patient Temperature 98.6 98.6 98.6 Blood Gas HCO3 25 mmol/L 21 mmol/L 20 mmol/L (22-26) (22-26) (22-26) Blood Gas Base Excess -0.2 mmol/L -3.6 mmol/L -3.7 mmol/L (-2-2) (-2-2) (-2-2) Blood Gas Oxygen Saturation 98 % (90-100) 97 % (90-100) 97 % (90-100) Arterial Blood pH 7.35 7.39 7.45 (7.380-7.420) (7.380-7.420) (7.380-7.420) Arterial Blood Partial 46 mmHg (38-42) 35 mmHg (38-42) 29 mmHg (38-42) Pressure CO2 Arterial Blood Partial 178 mmHG 133 mmHG 135 mmHg Pressure O2 (61-120) (61-120) (61-120) Arterial Blood Oxygen Content 19.0 Vol % 20.6 Vol % 19.9 Vol % (12.0-20.0) (12.0-20.0) (12.0-20.0) Arterial Blood 0.6 % (0-4) 0.7 % (0-4) 0.9 % (0-4) Carboxyhemoglobin Arterial Blood Methemoglobin 0.8 % (0-2) 0.8 % (0-2) 1.1 % (0-2) Blood Gas Hemoglobin 13.6 G/DL 15.0 G/DL 14.5 G/DL (12.0-16.0) (12.0-16.0) (12.0-16.0) Oxygen Delivery Device VENTILATOR VENTILATOR VENTILATOR Blood Gas Ventilator Setting SEE COMMENT SEE COMMENT Blood Gas Inspired Oxygen 100 % 40 % 30 % Objective Remarks GENERAL: male patient who is orotracheally intubated. SKIN: Warm and dry. HEAD: wrapped in bandage which is clean and dry. EYES: Pupils 1 mm nonreactive bilaterally. No scleral icterus. No injection or drainage. ENT: No nasal bleeding or discharge. Mucous membranes pink and moist. NECK: Trachea midline. No JVD. CARDIOVASCULAR: . tachycardic rate, regular rhythm. sinus by tele. RESPIRATORY: PRVC, fio2 40%. equal chest rise. GASTROINTESTINAL: Abdomen soft, non-tender, nondistended. : Kumar in place MSK: No obvious deformity. No edema NEUROLOGICAL: Pupils 1 mm nonreactive bilaterally. moves extremities spontaneously. +gag. does not withdraw or follow commands. GCS 5. A/P Assessment and Plan Assessment: 40yM with large posterior fossa IPH now s/p decompressive posterior fossa craniectomy 09/01. Persistent encephalopathy. very poor prognosis given size and location of the bleed. goals are aggressive. palliative care consulted. very critically ill at this point. NEURO: Acute cerebellar hemorrhage (ICH Score 4) CT brain 09/01/16 - 4.9 x 5.3 cm right cerebellar hemorrhage with effacement of the fourth ventricle. CTA 09/01/16 - No e/o vascular abnormality. s/p Suboccipital craniectomy, cerebellar hemorrhage evacuation, ventriculostomy by Dr. Ovalles 09/01/16 Ventric at + 10 cm H20 per NSG, ICP 7 Continue Keppra 500 mg IV every 12 3% NaCl @ 30 ml/hr with serial sodium and serum osm. Maintain normothermia with Ofirmev/cooling blanket prn temp >100.4. (Ofirmev chosen due to vomiting, can transition to enteral tylenol when clinically appropriate) Target RASS -2, patient comfort and vent synchrony, RESP: Acute respiratory failure Aspiration Intubated at the scene by E VAC with no sedation End tidal CO2 monitoring. Target PaCO2 35-40. Duoneb q6 hours; Albuterol q2 hours prn wheezing no SBT today given cerebral edema and mental status. CV: Malignant Hypertension- resolving. Labetalol 10 mg IV q4 hours prn SBP <150. Nicardipine to maintain systolic blood pressure less than 150 Obtain baseline EKG. GI: Vomiting OG tube to low intermittent wall suction Zofran 4 mg IV q6 hours FEN/RENAL: Renal insufficiency, unknown baseline creatinine Hypokalemia ICU electrolyte protocol Kumar in place due to critically ill patient in need of accurate I/O monitoring and at risk for urinary obstruction Monitor I/O and creatinine Monitor electrolytes and replace as indicated per ICU electively replacement protocol. ID: Received Perioperative cefazolin. U/a with occasional bacteria, culture indicated, followup urine culture. Large amount of sputum production and e/o aspiration. Send sputum culture. Unasyn 3 gram IV q6 hours. HEME: Monitor CBC, post op CBC pending. Coags WNL. Patient was not on anticoagulant or antiplatelet therapy. ENDO: Acute stress hyperglycemia Monitor bedside glucose and initiate low-dose insulin sliding scale as indicated PROPH: SCDs and teds for DVT prophylaxis. Pharmacologic DVT prophylaxis is contraindicated due to acute cerebellar hemorrhage. Protonix 40 mg IV daily for stress ulcer prophylaxis. ACCESS: Left radial art line placed in OR 09/01 Critical care time 49 minutes exclusive of separately billable procedures. Vasile Knight MD September 02, 2016 07:50 Critical care time 60 minutes exclusive of separately billable procedures. Vasile Knight MD September 02, 2016 07:50
[2016-09-02] MEDS: PANTOPRAZOLE SODIUM 40 MG VIAL IV SCH (08:37)
[2016-09-02] MEDS: levETIRAcetam INJ 500 MG in SODIUM CHLORIDE 0.9% INJ 100 ML IV SCH ×2 (08:37→20:47)
[2016-09-02] MEDS: CHLORHEXIDINE 0.12% (ORAL KIT) 15 ML CUP MT SCH ×2 (08:38→20:00)
--- NOTE | 2016-09-02 14:30 | HHI.NSPN ---
Subjective History 40-year-old gentleman postop day #1 status post right suboccipital craniectomy with cerebellar hemorrhage evacuation and ventriculostomy placement. His ICPs have been normal postoperatively. When sedation was held he vomited and was noted to have some eye opening and right-sided movements per the nursing staff. Vitals . Vital Signs Date Time Temp Pulse Resp B/P Pulse Ox O2 Delivery O2 Flow Rate FiO2 09/02/16 14:00 93 09/02/16 12:00 98 09/02/16 12:00 100.0 98 18 134/76 100 09/02/16 11:40 100 30 09/02/16 10:00 91 09/02/16 08:29 100 30 09/02/16 08:20 100 30 09/02/16 08:00 99.1 80 18 140/80 100 09/02/16 08:00 91 09/02/16 07:00 100 Mechanical Ventilator 30 09/02/16 06:00 83 09/02/16 04:12 100 30 09/02/16 04:00 97.5 78 20 132/86 100 09/02/16 04:00 78 09/02/16 02:00 82 09/02/16 00:00 87 09/02/16 00:00 96.8 76 20 130/72 100 09/01/16 21:10 100 100 09/01/16 20:48 100 100 09/01/16 20:48 98 100 09/01/16 20:14 98 16 109/55 100 100 09/01/16 20:13 102 16 118/58 100 100 09/01/16 20:13 100 Ventilator 100 09/01/16 20:01 102 16 118/58 100 09/01/16 19:44 98 100 09/01/16 19:35 98 100 09/01/16 09/01/16 09/02/16 15:00 23:00 07:00 Intake Total 861 ml Output Total 729 ml Balance 132 ml Physical Exam Head Head: Incision Eyes Eyes: Pupils Equal Neuro Mental Status: Comatosed, Sedated Drips: Diprivan @ Pupils: Nonreactive bilaterally Face: Symmetric Neuro Remarks Negative corneal reflex Slight gag reflex Positive cough reflex [place] Coma Scale Best Eye Openin - None Best Verbal: 1 - None Best Motor: 4 - Withdraws to pain Cardiac Cardiac: Regular Rate & Rhythm Respiratory Respiratory: CTA Gastrointestinal Gastrointestinal: Soft, Nontender Genitourinary Genitourinary: Kumar Catheter In Place Musculoskeletal Extremities Upper Extremities Deltoid Bicep Tricep HI W. Ext Right Left Lower Extremeties Ilio Quad Plantar Dorsi EHL Right Left Dermatologic Dermatologic: Skin Intact Extremities Edema: SCDs Objective Infectious Disease Cultures Microbiology Date/Time Procedure Status Source Growth 09/01/16 20:10 Urine Culture - Preliminary Resulted Urine Catheterized Urine RESULTS PENDING 09/02/16 03:44 Aerobic Blood Culture Received Blood Peripheral Pending 09/02/16 03:44 Anaerobic Blood Culture Received Blood Peripheral Pending 09/02/16 03:49 Aerobic Blood Culture Received Blood Peripheral Pending 09/02/16 03:49 Anaerobic Blood Culture Received Blood Peripheral Pending 09/02/16 04:19 Gram Stain - Final Resulted Sputum Endotracheal 09/02/16 04:19 Sputum Culture Resulted Sputum Endotracheal Pending Drains Ventric @: 10 cm H20 Ventric Draining: Blood Tinged CSF Labs Laboratory Tests 09/01/16 19:40 09/02/16 00:20 09/02/16 06:00 09/02/16 11:25 Laboratory Tests Test 09/01/16 09/02/16 09/02/16 09/02/16 19:40 00:20 03:49 06:00 Sodium Level 137 MEQ/L 139 MEQ/L 138 MEQ/L Potassium Level 3.1 MEQ/L 3.2 MEQ/L 4.7 MEQ/L Chloride Level 101 MEQ/L 103 MEQ/L 106 MEQ/L Carbon Dioxide Level 25.3 MEQ/L 23.3 MEQ/L 22.5 MEQ/L Anion Gap 11 MEQ/L 13 MEQ/L 10 MEQ/L Blood Urea Nitrogen 19 MG/DL 18 MG/DL 17 MG/DL Creatinine 1.74 MG/DL 1.60 MG/DL 1.39 MG/DL Estimat Glomerular Filtration 53 ML/MIN 59 ML/MIN 69 ML/MIN Rate Random Glucose 172 MG/DL 166 MG/DL 134 MG/DL Calcium Level 8.3 MG/DL 8.6 MG/DL 8.6 MG/DL Total Bilirubin 0.3 MG/DL 0.5 MG/DL Aspartate Amino Transf 43 U/L 33 U/L (AST/SGOT) Alanine Aminotransferase 50 U/L 46 U/L (ALT/SGPT) Alkaline Phosphatase 83 U/L 56 U/L Total Creatine Kinase 670 U/L Creatine Kinase MB 2.3 NG/ML Creatine Kinase MB % 0.3 % Troponin I LESS THAN 0.02 NG/ML B-Type Natriuretic Peptide 13 PG/ML Total Protein 7.3 GM/DL 7.2 GM/DL Albumin 3.3 GM/DL 3.1 GM/DL Magnesium Level 1.5 MG/DL 1.4 MG/DL Serum Osmolality 301 MOSM/KG 295 MOSM/KG Phosphorus Level 0.6 MG/DL Test 09/02/16 11:25 Sodium Level 140 MEQ/L Serum Osmolality 295 MOSM/KG Laboratory Tests Test 09/01/16 20:10 Urine Opiates Screen NEG Urine Barbiturates Screen NEG Urine Amphetamines Screen NEG Urine Benzodiazepines Screen NEG Urine Cocaine Screen NEG Urine Cannabinoids Screen NEG Assessment & Plan Assessment Large right cerebellar hemisphere spontaneous hemorrhage likely hypertensive with no underlying vascular abnormality noted. He is now postoperative day #1 status post suboccipital craniectomy with cerebellar hemorrhage evacuation and ventriculostomy placement. His ICPs have been normal. There is slight improvement in his exam overnight. Continue with the current treatment measures and supportive care. Discussed with and family at bedside. Gutierrez Ovalles MD September 02, 2016 14:30
--- NOTE | 2016-09-02 15:24 | PD.CONS ---
Consult Service Palliative Care Consult Requested By Dr. Antonia MD. Primary Care Physician Unknown Reason for Consultation a. To assist with evaluation and management of symptoms including: Shortness of breath and debility. b. To assist medical decision maker(s) with: better understanding of current medical conditions; weighing benefits/burdens of medical treatment options; making medical treatment decisions. . (Della Gonzalez) HPI History of Present Illness Palliative care consulted for emotional support and to assist with communication. Mr. Isabel is a 40-year-old male with no significant past medical history who presented to the ED via EMS on 09/01/16. As per medical records and patient's Jaci, patient was working when he started reporting severe headache. He started screaming in pain and EMS was called to is scene. Upon EMS arrival, patient's condition worsened and required emergent intubation. Upon arriving to ED, head CT obtained revealing large acute high density hemorrhage in the right cerebellar hemisphere with extension into the isaac, 5.3cm x 4.9cm in size. Patient with very poor neurological exam but absence of pupillary, corneal, tach and cough reflexes. Neurosurgery -Dr. Ovalles consulted. Patient was subsequently taken to OR for decompressive craniectomy. ED workup to include: * Head CTA, if etiology of patient's right cerebral hemorrhage that identified. Infiltrates and possible pleural effusions in the upper lungs. * Neck CTA, unremarkable. * Chest x-ray revealing bilateral patchy opacities, left greater than right. Likely representing pneumonia for early pulmonary edema. * Negative toxicology report. Negative UA. * Laboratory workup to include WBC 8.1, Hgb 14.1, platelet count 233. Sodium 137, potassium 3.1, BUN/creatinine 19/1.74. BNP 13. Albumin 3.3. Troponin less than 0.02. Patient seen in ICU, he remains orally intubated on mechanical ventilation. Sedated, unresponsive to verbal or tactile stimuli. Jaci bedside. Max temp 100.0 today. Stable hemodynamically. Laboratory today showing WBC 15.5, Hgb 14.1, platelet count 215. Sodium 138, potassium 4.7, BUN/creatinine 17/ 1.39. Met with patient's Jaci outside of the room. Introduce palliative care services in regards to ongoing emotional support and assistance with communication. Reviewed events leading to this hospitalization, clinical course and current medical management. Patient's mother and sister to arrive from [place] tomorrow. Jaci's mother also arriving from out of [facility] to offer support. Discussed with that there is a long road ahead of them and that she might be faced with difficult decisions in the near future. Jaci acknowledges patient's current critical condition, remains hopeful given patient 's clinical improvement since returning from OR. Offered spiritual support for which she accepted. Provided palliative care contact information for any further questions. Palliative care will continue to follow-up as needed. . Function/Cognitive Trajectory Confirmed with patient's Jaci that patient was fully functional and independent with all ADLs. No cognitive decline or impairment reported. . (Della Gonzalez) Review of Systems ROS Limitations: Clinical Condition, Intubated, Unresponsive Constitutional: DENIES: Fatigue, Pain Endocrine: DENIES: Heat/cold intolerance Eyes: DENIES: Eye pain Ears, nose, mouth, throat: DENIES: Hearing loss, Throat pain, Running Nose Respiratory: DENIES: Cough, Shortness of breath Cardiovascular: DENIES: Chest pain, Dyspnea on Exertion, Lower Extremity Edema Gastrointestinal: DENIES: Abdominal pain, Nausea Genitourinary: COMPLAINS OF: Urinary incontinence Musculoskeletal: DENIES: Joint pain Integumentary: DENIES: Abnormal pigmentation Hematologic/Lymphatics: DENIES: Bruising Immunologic/Allergic: DENIES: Eczema Neurologic: COMPLAINS OF: Headache, DENIES: Poor Balance Psychiatric: DENIES: Anxiety (Limited ROS secondary to clinical condition, patient intubated on mechanical ventilation. ROS obtained from patient's , medical records and clinical observation.) Other ROS: Limited ROS secondary to patient's clinical condition, intubated on mechanical ventilation. ROS obtained from patient's , medical records and clinical observation. (Della Gonzalez) Past Family Social History Coded Allergies: UNOBTAINABLE (Unverified , 09/01/16) Past Medical History Chronic sinusitis status post sinus surgery 10 years ago Urinary incontinence. Past Surgical History Sinus surgery over 10 years ago. . Reported Medications None. . Current Medications Medications (Trade) Dose Ordered Sig/Demetris Route Start Time Stop Time Status Last Admin (NS + KCl 20 Meq Inj) 1,000 ml @ 84 mls/hr [id number] IV 09/01/16 20:52 09/02/16 08:38 (NS Flush) 2 ml UNSCH PRN .XX 09/01/16 21:00 (NS Flush) 2 ml BID .XX 09/01/16 21:00 09/02/16 08:38 (Tylenol) 650 mg Q6H PRN OG-TUBE 09/01/16 21:00 Hold (fentaNYL INJ) 50 mcg Q1H PRN IV PUSH 09/01/16 21:00 (Protonix Inj) 40 mg DAILY IV 09/02/16 09:00 09/02/16 08:37 Miscellaneous Information 1 [id number] XX 09/01/16 21:00 (Chlorhexidine 2% Cloth) 3 pack Taper DAILY@04 TOP 09/02/16 04:00 08/29/17 03:59 09/02/16 02:34 Chlorhexidine Gluconate 3 pack 3 pack UNSCH PRN TOP 09/01/16 21:00 Levetriacetam 500 mg/Sodium Chloride 105 ml @ 420 mls/hr Q12HR IV 09/02/16 09:00 09/02/16 08:37 Nicardipine HCl 25 mg/Sodium Chloride 260 ml @ 0 mls/hr TITRATE IV 09/01/16 21:15 Potassium Chloride 100 ml @ 50 mls/hr Q2H PRN IV 09/01/16 21:15 09/02/16 04:54 (KCl 20 Meq Premix Inj) 100 ml @ 50 mls/hr Q2H PRN IV 09/01/16 21:15 Potassium Bicarb/ Potassium Chloride 50 meq 50 meq UNSCH PRN PO 09/01/16 21:15 Potassium Chloride 100 ml @ 25 mls/hr UNSCH PRN IV 09/01/16 21:15 Potassium Chloride 100 ml @ 50 mls/hr Q2H PRN IV 09/01/16 21:15 (Magnesium Sulfate Inj/NS Inj) 100 ml @ 50 mls/hr UNSCH PRN IV 09/01/16 21:15 Magnesium Oxide 800 mg 800 mg UNSCH PRN PO 09/01/16 21:15 (Magnesium Sulfate Inj/NS Inj) 100 ml @ 50 mls/hr UNSCH PRN IV 09/01/16 21:15 09/02/16 08:18 Potassium Phosphate 2000 mg 2,000 mg Q4H PRN PO 09/01/16 21:15 (Sodium Phosphate Inj/NS 250 ml Inj) 250 ml @ 42 mls/hr UNSCH PRN IV 09/01/16 21:15 09/02/16 08:18 (K-Phos) 2,000 mg UNSCH PRN PO/TUBE 09/01/16 21:15 (D50w (Vial) Inj) 50 ml UNSCH PRN IV 09/01/16 21:15 (Glucagon Inj) 1 mg UNSCH PRN OTHER 09/01/16 21:15 (NovoLOG SUPPLEMENTAL SCALE) 1 Q6H SQ 09/01/16 22:00 Chlorhexidine Gluconate 15 ml 15 ml BID@08,20 MT 09/02/16 08:00 09/02/16 08:38 Ampicillin Sodium/ Sulbactam Sodium 3 gm/Sodium Chloride 100 ml @ 200 mls/hr Q6HR IV 09/02/16 00:15 09/02/16 11:38 (Diprivan 1000 Mg/100ml Inj) 100 ml @ 0 mls/hr TITRATE IV 09/02/16 00:30 09/02/16 14:26 (Trandate Inj) 10 mg Q4H PRN IV PUSH 09/02/16 00:45 (Ofirmev Inj) 1,000 mg Q6H PRN IV 09/02/16 01:00 Ondansetron HCl 4 mg 4 mg Q6HR PRN IV PUSH 09/02/16 01:00 (Sodium Chloride 3% Inj) 500 ml @ 30 mls/hr CONTINUOUS IV 09/02/16 02:15 09/02/16 02:35 Family History Unable to obtain family history secondary to patient's clinical condition. unaware of any significant family medical history. Patient has 2 children who are alive and well. . Substance Use Tobacco: None reported. Alcohol: Social consumption of alcohol. Prescription med abuse: None reported. Illicits: None reported. . Psychosocial History Patient is originally from [place]. Moved to [place] 3 years ago. He is to [facility] for the past 2 years, they have no children together. Patient has 2 children from 2 prior relationships, one daughter who is 16 years old and resides in [place] and 1 son who is 11 years old and resides and [facility]. Patient's mother and sister currently residing in [place]. 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 . Spiritual/Cultural Factors Mandaen holly. . (Della Gonzalez) Living Will: Never completed Health Care Surrogate: Never completed Durable Power of Education Professor: Never completed Health Care Surrogate(s): No living will or healthcare surrogate designation completed. As per [place] law, patient's Jaci Isabel is healthcare proxy. . Documented care wishes: No living will completed. . Family/friends goals: Full code. Continue aggressive management, allow time for clinical improvement. . Ethical and Legal Issues No living will completed. . (Della Gonzalez) Physical Exam Vital Signs Date Time Temp Pulse Resp B/P Pulse Ox O2 Delivery O2 Flow Rate FiO2 09/02/16 14:00 93 09/02/16 12:00 98 09/02/16 12:00 100.0 98 18 134/76 100 09/02/16 11:40 100 30 09/02/16 10:00 91 09/02/16 08:29 100 30 09/02/16 08:20 100 30 09/02/16 08:00 99.1 80 18 140/80 100 09/02/16 08:00 91 09/02/16 07:00 100 Mechanical Ventilator 30 09/02/16 06:00 83 09/02/16 04:12 100 30 09/02/16 04:00 97.5 78 20 132/86 100 09/02/16 04:00 78 09/02/16 02:00 82 09/02/16 00:00 87 09/02/16 00:00 96.8 76 20 130/72 100 09/01/16 21:10 100 100 09/01/16 20:48 100 100 09/01/16 20:48 98 100 09/01/16 20:14 98 16 109/55 100 100 09/01/16 20:13 102 16 118/58 100 100 09/01/16 20:13 100 Ventilator 100 09/01/16 20:01 102 16 118/58 100 09/01/16 19:44 98 100 09/01/16 19:35 98 100 09/01/16 09/02/16 19:00 07:00 Intake Total 861 ml Output Total 729 ml Balance 132 ml Intake IV Total 861 ml Output Urine Total 675 ml Gastric Drainage Total 50 ml Drainage Total 4 ml # Bowel Movements 0 Exam CONSTITUTIONAL/GENERAL: This is an adequately nourished patient, in no apparent distress. Orally intubated on mechanical ventilation. TUBES/LINES/DRAINS: PIV's, arterial line, ET tube, OG, right EJ, left subclavian central line, Kumar catheter, SCDs, bilateral soft wrist restraints. SKIN: No jaundice, rashes, or lesions. No wounds seen anteriorly. Skin temperature appropriate. Not diaphoretic. HEAD: Atraumatic. Normocephalic. EYES: No scleral icterus. No injection or drainage. ENT: Unable to evaluate hearing secondary to clinical condition. Nose without bleeding or purulent drainage. Moist oral mucosa. NECK: Trachea midline. Supple. CARDIOVASCULAR: Regular rate and rhythm without murmurs, gallops, or rubs. Peripheral pulses symmetric. RESPIRATORY/CHEST: Symmetric, unlabored respirations. Clear to auscultation. Breath sounds equal bilaterally. No wheezes, rales, or rhonchi. Orally intubated on mechanical ventilation. GASTROINTESTINAL: Abdomen soft, non-tender, round. Bowel sounds present. GENITOURINARY: Without palpable bladder distension. Kumar catheter in place. MUSCULOSKELETAL: Extremities without clubbing, cyanosis, or edema. No mottling or clubbing. LYMPHATICS: No palpable cervical or supraclavicular adenopathy. NEUROLOGICAL: Sedated and intubated on mechanical ventilation. Unresponsive to verbal or tactile stimuli. PSYCHIATRIC: Unable to evaluate secondary to clinical condition. . (Della Gonzalez) Diagnostic Tests Laboratory Laboratory Tests Test 09/01/16 09/01/16 09/01/16 09/02/16 19:40 20:10 20:20 00:20 White Blood Count 8.1 TH/MM3 14.4 TH/MM3 (4.0-11.0) (4.0-11.0) Red Blood Count 5.01 MIL/MM3 5.21 MIL/MM3 (4.50-5.90) (4.50-5.90) Hemoglobin 14.1 GM/DL 14.4 GM/DL (13.0-17.0) (13.0-17.0) Hematocrit 41.9 % 43.4 % (39.0-51.0) (39.0-51.0) Mean Corpuscular Volume 83.7 FL 83.2 FL (80.0-100.0) (80.0-100.0) Mean Corpuscular Hemoglobin 28.2 PG 27.6 PG (27.0-34.0) (27.0-34.0) Mean Corpuscular Hemoglobin 33.8 % 33.2 % Concent (32.0-36.0) (32.0-36.0) Red Cell Distribution Width 14.4 % 14.4 % (11.6-17.2) (11.6-17.2) Platelet Count 233 TH/MM3 239 TH/MM3 (150-450) (150-450) Mean Platelet Volume 8.4 FL 8.5 FL (7.0-11.0) (7.0-11.0) Neutrophils (%) (Auto) 43.7 % (16.0-70.0) Lymphocytes (%) (Auto) 46.0 % (9.0-44.0) Monocytes (%) (Auto) 7.4 % (0.0-8.0) Eosinophils (%) (Auto) 2.2 % (0.0-4.0) Basophils (%) (Auto) 0.7 % (0.0-2.0) Neutrophils # (Auto) 3.6 TH/MM3 (1.8-7.7) Lymphocytes # (Auto) 3.7 TH/MM3 (1.0-4.8) Monocytes # (Auto) 0.6 TH/MM3 (0-0.9) Eosinophils # (Auto) 0.2 TH/MM3 (0-0.4) Basophils # (Auto) 0.1 TH/MM3 (0-0.2) CBC Comment DIFF FINAL Differential Comment Prothrombin Time 10.8 SEC (9.8-11.6) Prothromb Time International 1.0 RATIO Ratio Activated Partial 22.9 SEC Thromboplast Time (24.3-30.1) Sodium Level 137 MEQ/L 139 MEQ/L (136-145) (136-145) Potassium Level 3.1 MEQ/L 3.2 MEQ/L (3.5-5.1) (3.5-5.1) Chloride Level 101 MEQ/L 103 MEQ/L (98-107) (98-107) Carbon Dioxide Level 25.3 MEQ/L 23.3 MEQ/L (21.0-32.0) (21.0-32.0) Anion Gap 11 MEQ/L (5-15) 13 MEQ/L (5-15) Blood Urea Nitrogen 19 MG/DL (7-18) 18 MG/DL (7-18) Creatinine 1.74 MG/DL 1.60 MG/DL (0.60-1.30) (0.60-1.30) Estimat Glomerular Filtration 53 ML/MIN (>89) 59 ML/MIN (>89) Rate Random Glucose 172 MG/DL 166 MG/DL (74-106) (74-106) Calcium Level 8.3 MG/DL 8.6 MG/DL (8.5-10.1) (8.5-10.1) Total Bilirubin 0.3 MG/DL (0.2-1.0) Aspartate Amino Transf 43 U/L (15-37) (AST/SGOT) Alanine Aminotransferase 50 U/L (12-78) (ALT/SGPT) Alkaline Phosphatase 83 U/L (45-117) Total Creatine Kinase 670 U/L (39-308) Creatine Kinase MB 2.3 NG/ML (0.5-3.6) Creatine Kinase MB % 0.3 % (0.0-4.0) Troponin I LESS THAN 0.02 NG/ML (0.02-0.05) B-Type Natriuretic Peptide 13 PG/ML (0-100) Total Protein 7.3 GM/DL (6.4-8.2) Albumin 3.3 GM/DL (3.4-5.0) Urine Color YELLOW (YELLW/STRAW) Urine Turbidity CLEAR (CLEAR) Urine pH 6.0 (5.0-8.5) Urine Specific [place] 1.016 (1.002-1.035) Urine Protein 300 mg/dL (NEG-TRACE) Urine Glucose (UA) NEG mg/dL (NEG) Urine Ketones NEG mg/dL (NEG) Urine Occult Blood TRACE (NEG) Urine Nitrite NEG (NEG) Urine Bilirubin NEG (NEG) Urine Urobilinogen LESS THAN 2.0 MG/DL (LESS THAN 2.0) Urine Leukocyte Esterase NEG (NEG) Urine RBC 2 /hpf (0-3) Urine WBC 4 /hpf (0-5) Urine Bacteria OCC /hpf (NONE) Urine Mucus FEW /lpf (OCC) Microscopic Urinalysis Comment CATH-CULTURE IND Urine Opiates Screen NEG (NEG) Urine Barbiturates Screen NEG (NEG) Urine Amphetamines Screen NEG (NEG) Urine Benzodiazepines Screen NEG (NEG) Urine Cocaine Screen NEG (NEG) Urine Cannabinoids Screen NEG (NEG) Blood Type B NEGATIVE Antibody Screen NEGATIVE Blood Bank Comment Blood Gas Puncture Site RT RADIAL Blood Gas Patient Temperature 98.6 Blood Gas HCO3 25 mmol/L (22-26) Blood Gas Base Excess -0.2 mmol/L (-2-2) Blood Gas Oxygen Saturation 98 % (90-100) Arterial Blood pH 7.35 (7.380-7.420) Arterial Blood Partial 46 mmHg (38-42) Pressure CO2 Arterial Blood Partial 178 mmHG Pressure O2 (61-120) Arterial Blood Oxygen Content 19.0 Vol % (12.0-20.0) Arterial Blood 0.6 % (0-4) Carboxyhemoglobin Arterial Blood Methemoglobin 0.8 % (0-2) Blood Gas Hemoglobin 13.6 G/DL (12.0-16.0) Oxygen Delivery Device VENTILATOR Blood Gas Ventilator Setting Blood Gas Inspired Oxygen 100 % Magnesium Level 1.5 MG/DL (1.5-2.5) Test 09/02/16 09/02/16 09/02/16 09/02/16 00:22 03:11 03:49 05:43 Blood Gas Puncture Site JOEL MALDONADO Blood Gas Patient Temperature 98.6 98.6 Blood Gas HCO3 21 mmol/L 20 mmol/L (22-26) (22-26) Blood Gas Base Excess -3.6 mmol/L -3.7 mmol/L (-2-2) (-2-2) Blood Gas Oxygen Saturation 97 % (90-100) 97 % (90-100) Arterial Blood pH 7.39 7.45 (7.380-7.420) (7.380-7.420) Arterial Blood Partial 35 mmHg (38-42) 29 mmHg (38-42) Pressure CO2 Arterial Blood Partial 133 mmHG 135 mmHg Pressure O2 (61-120) (61-120) Arterial Blood Oxygen Content 20.6 Vol % 19.9 Vol % (12.0-20.0) (12.0-20.0) Arterial Blood 0.7 % (0-4) 0.9 % (0-4) Carboxyhemoglobin Arterial Blood Methemoglobin 0.8 % (0-2) 1.1 % (0-2) Blood Gas Hemoglobin 15.0 G/DL 14.5 G/DL (12.0-16.0) (12.0-16.0) Oxygen Delivery Device VENTILATOR VENTILATOR Blood Gas Ventilator Setting SEE COMMENT SEE COMMENT Blood Gas Inspired Oxygen 40 % 30 % Nasal Screen MRSA (PCR) MRSA NOT DETECTED (NOT DETECT) Serum Osmolality 301 MOSM/KG (275-295) Test 09/02/16 09/02/16 06:00 11:25 White Blood Count 15.5 TH/MM3 (4.0-11.0) Red Blood Count 5.10 MIL/MM3 (4.50-5.90) Hemoglobin 14.1 GM/DL (13.0-17.0) Hematocrit 42.2 % (39.0-51.0) Mean Corpuscular Volume 82.7 FL (80.0-100.0) Mean Corpuscular Hemoglobin 27.7 PG (27.0-34.0) Mean Corpuscular Hemoglobin 33.4 % Concent (32.0-36.0) Red Cell Distribution Width 14.2 % (11.6-17.2) Platelet Count 215 TH/MM3 (150-450) Mean Platelet Volume 8.8 FL (7.0-11.0) Neutrophils (%) (Auto) 87.0 % (16.0-70.0) Lymphocytes (%) (Auto) 4.2 % (9.0-44.0) Monocytes (%) (Auto) 8.5 % (0.0-8.0) Eosinophils (%) (Auto) 0.1 % (0.0-4.0) Basophils (%) (Auto) 0.2 % (0.0-2.0) Neutrophils # (Auto) 13.5 TH/MM3 (1.8-7.7) Lymphocytes # (Auto) 0.7 TH/MM3 (1.0-4.8) Monocytes # (Auto) 1.3 TH/MM3 (0-0.9) Eosinophils # (Auto) 0.0 TH/MM3 (0-0.4) Basophils # (Auto) 0.0 TH/MM3 (0-0.2) CBC Comment DIFF FINAL Differential Comment Sodium Level 138 MEQ/L 140 MEQ/L (136-145) (136-145) Potassium Level 4.7 MEQ/L (3.5-5.1) Chloride Level 106 MEQ/L (98-107) Carbon Dioxide Level 22.5 MEQ/L (21.0-32.0) Anion Gap 10 MEQ/L (5-15) Blood Urea Nitrogen 17 MG/DL (7-18) Creatinine 1.39 MG/DL (0.60-1.30) Estimat Glomerular Filtration 69 ML/MIN (>89) Rate Random Glucose 134 MG/DL (74-106) Serum Osmolality 295 MOSM/KG 295 MOSM/KG (275-295) (275-295) Calcium Level 8.6 MG/DL (8.5-10.1) Phosphorus Level 0.6 MG/DL (2.5-4.9) Magnesium Level 1.4 MG/DL (1.5-2.5) Total Bilirubin 0.5 MG/DL (0.2-1.0) Aspartate Amino Transf 33 U/L (15-37) (AST/SGOT) Alanine Aminotransferase 46 U/L (12-78) (ALT/SGPT) Alkaline Phosphatase 56 U/L (45-117) Total Protein 7.2 GM/DL (6.4-8.2) Albumin 3.1 GM/DL (3.4-5.0) (Della Gonzalez) Result Diagram: 09/02/16 0600 09/02/16 1125 Microbiology Microbiology Date/Time Procedure Status Source Growth 09/01/16 20:10 Urine Culture - Preliminary Resulted Urine Catheterized Urine RESULTS PENDING 09/02/16 03:44 Aerobic Blood Culture Received Blood Peripheral Pending 09/02/16 03:44 Anaerobic Blood Culture Received Blood Peripheral Pending 09/02/16 03:49 Aerobic Blood Culture Received Blood Peripheral Pending 09/02/16 03:49 Anaerobic Blood Culture Received Blood Peripheral Pending 09/02/16 04:19 Gram Stain - Final Resulted Sputum Endotracheal 09/02/16 04:19 Sputum Culture Resulted Sputum Endotracheal Pending Imaging Last Impressions Chest X-Ray 09/02/16 0000 Signed Impressions: Service Date/Time: Wednesday, September 02, 2016 02:06 - CONCLUSION: Improvement in pulmonary edema. Erika Bob MD Neck CTA 09/01/162019 Signed Impressions: Service Date/Time: Thursday, September 01, 2016 20:55 - CONCLUSION: Unremarkable exam. The carotid arteries are intact. Ag Saxena MD Head CTA 09/01/162019 Signed Impressions: Service Date/Time: Thursday, September 01, 2016 20:55 - CONCLUSION: The etiology of the patient's right cerebellar h hemorrhage is not identified and there appears to be some infiltrates and possible pleural effusions in the upper lungs that are visualized. Erika Bob MD Head CT 09/01/161936 Signed Impressions: Service Date/Time: Thursday, September 01, 2016 19:46 - CONCLUSION: Large acute high density hemorrhage in the right cerebellar hemisphere with mass effect on the fourth ventricle. There is hemorrhage extending into the right suprasellar cisterns with asymmetry. Ag Saxena MD Procedures * 09/01/16 -Right suboccipital craniectomy with evacuation of cerebellar hemorrhage; right frontal bur hole ventriculostomy placement. . (Della Gonzalez) Patient/Family Conference Present at Family Conference: Patient's Jaci Isabel. . Family Conference Time (mins): 35 Family Conference Location: Bedside, Hallway Issues Discussed: * Palliative care role, purpose, approach * Additional medical, psychosocial, and spiritual history * Patients general health, functional status, and cognitive changes in the months leading up to the current hospitalization * Family understanding of the current medical problems, discussed events leading to these hospitalization, clinical course and current medical management. * Questions answered to the best of my ability * Spiritual services * Palliative care contact information provided . (Della Gonzalez) Assessment and Plan Disease Oriented Problem List: (1) Spontaneous intraparenchymal intracranial hemorrhage, acute (2) Acute respiratory failure (3) Malignant hypertension Symptom Scale: (1) Shortness of breath 0-10 Scale: Unable to quantify Comment: Secondary to acute respiratory failure. Patient remains intubated on mechanical ventilation. (2) Pain 0-10 Scale: Unable to quantify Comment: Secondary to recent surgical intervention, hospitalization/bedrest. Pertinent Non-Medical Issues Psychosocial: . Has 2 children. Originally from [place]. Spiritual: Mandaen holly. Legal: No advance directives completed. Ethical issues impacting care: No advance directives completed. . Important Contacts /HCS Jaci Isabel ([phone]. . Prognosis Mr. Isabel is a 40-year-old male with no significant past medical history who presented on 09/01/16 with large right cerebellar hemisphere hemorrhage with extension into the isaac. He underwent right suboccipital craniectomy with evacuation of cerebellar hemorrhage; right frontal bur hole ventriculostomy placement. Patient at high risk for further complications, continue decline and . Poor prognosis for meaningful functional/neurological recovery. . Code Status: Full Code Plan * CODE STATUS: Full code. * HEALTHCARE DECISION-MAKER: Patient incapacitated secondary to clinical condition, unresponsive -intubated on mechanical ventilation. No advance directives completed. As per [place] law, patient's Jaci Isabel is proxy decision maker. She has accepted this role. * GOALS OF CARE: Continue full aggressive care to include full code at this time. Goal is to allow time for clinical improvement. with a strong holly base, hoping for recovery. -Met with patient's Jaci outside of the room. Introduce palliative care services in regards to ongoing emotional support and assistance with communication. Reviewed events leading to this hospitalization, clinical course and current medical management. Patient's mother and sister to arrive from [place] tomorrow. Jaci's mother also arriving from out [facility] to offer support. Discussed with that there is a long road ahead of them and that she might be faced with difficult decisions in the near future. Jaci acknowledges patient's current critical condition, but remains hopeful given patient's clinical improvement since returning from OR. Offered spiritual support for which she accepted. * SYMPTOMS: = Shortness of breath: Secondary to acute respiratory failure. Remains orally intubated on mechanical ventilation. = Pain: Secondary to recent surgical intervention, orally intubation, bedrest status. Fentanyl available as needed. * Spiritual services were offered and accepted by patient's Jaci. Referral has been made. * Case discussed with bedside RN. * Palliative care contact information has been provided to patient's . * Ongoing emotional support and active listening provided to patient's Jaci. * Palliative care will continue to follow-up as needed for further clarifications of goals of care, assist with communication and to provide ongoing emotional support throughout this hospitalization. . (Della Gonzalez) Time Spent Total Floor Time (mins): 69 (Total time to include review and summarization of available medical records, physical exam, conversation with patient's , case discussion with bedside RN and case discussion with spiritual services.) Face to Face Time (mins): 45 >50% Counseling/Coord of Care: Yes (Della Gonzalez) Thank you for the opportunity to participate in the care of Mr. Isabel. (Della Gonzalez) Attestation To help prompt me to consider important information that might be impacting today's encounter and assessment, information from prior notes written by myself or my colleagues may have been "brought forward" into today's note. My signature on this note, however, is an attestation that I personally performed the exam, history, and/or decision-making noted today, and, unless otherwise indicated, the interactions with patient, family, and staff as well as the review of records all occurred today. I also attest that the listed assessment and stated plan reflect my best clinical judgment today based on the combination of historical information, prior notes, and today's exam/ interactions. When time spent is documented, it refers only to time spent today by the signer, or if indicated, combined time spent today by collaborating physician/nurse practitioner. (Della Gonzalez) Collaborating MD Comments . Chart reviewed. Case discussed with palliative care GRINDING OPERATOR. Above GRINDING OPERATOR note reviewed and I concur. . (Antonio Matias MD) Della Gonzalez September 02, 2016 15:24 Antonio Matias MD September 08, 2016 16:31
[2016-09-02 18:17] LABS: MAGNESIUM 1.9 MG/DL (1.5-2.5); POTASSIUM 3.9 MEQ/L (3.5-5.1)
--- NOTE | 2016-09-02 19:39 | EKG ---
Date Performed: 09/01/2016 Time Performed: 20:04:46 PTAGE: 40 years EKG: Sinus rhythm NONSPECIFIC T-WAVE ABNORMALITY BORDERLINE ECG NO PREVIOUS TRACING DOCTOR: Ana Griggs Interpretating Date/Time 09/02/2016 19:38:24
[2016-09-03] VITALS (19 sets, daily range): BP systolic 111–151; BP diastolic 61–95; PULSE 89–112; RESP 16–18; TEMP 100.2–100.9; O2SAT 95–100
[2016-09-03] MEDS: AMPICILLIN-SULBACTAM INJ 3 GM in SODIUM CHLORIDE 0.9% INJ 100 ML IV SCH ×4 (00:09→17:15)
[2016-09-03] MEDS: PROPOFOL 1000 MG/100 ML INJ 100 ML IV SCH ×7 (01:48→20:10)
[2016-09-03] MEDS: RESP: ALBUTEROL 2.5 MG/IPRATROPIUM 0.5 MG NEB (SCH) INH ×4 (03:57→19:36)
[2016-09-03] MEDS: CHLORHEXIDINE GLUCONATE 2 % 1 PACK (2 CLOTHS) TOP SCH (03:57)
[2016-09-03] MEDS: INSULIN ASPART SUPPLEMENTAL SCALE SQ SCH ×4 (04:00→22:00)
[2016-09-03] MEDS: LABETALOL HCL 100 MG/20 ML VIAL IV PUSH PRN ×2 (04:06→08:37)
[2016-09-03] MEDS: ACETAMINOPHEN 1000 MG/100 ML VIAL IV PRN ×2 (04:06→18:46)
[2016-09-03] MEDS: CHLORHEXIDINE 0.12% (ORAL KIT) 15 ML CUP MT SCH ×2 (08:00→20:11)
--- NOTE | 2016-09-03 08:27 | HHI.CCPN ---
Subjective Remarks/Hospital Course Hospital Course: 40-year-old male with reportedly no significant past medical history who was at work today and was taking out the garbage when he developed "the worse headache of his life". He was screaming in pain and [facility] was called. Upon [facility] arrival his GCS was 13 but rapidly deteriorated to GCS 3. He vomited. He was intubated on the scene without any drugs. CT brain demonstrated a large right cerebellar hemorrhage (4.9 x 5.7 cm) with effacement of the fourth ventricle. He has a very poor neurologic exam with absence of pupillary, corneal, gag, cough, oculocephalic reflexes. Not overbreathing vent but did not formally test apnea. Dr. Ovalles discussed with and she is requesting operative management. He is being taken for emergent CT angiogram and then to OR for evacuation by Dr. Ovalles. Subjective: 09/02: decompressive craniectomy overnight. per report, when he returned from the OR he apparently had a +gag. this morning remains encephalopathic. 06/06: vomiting on sedation vacation yesterday. cardene off. icp's controlled: 9 this AM. still poor neurologic exam. Objective Vital Signs Date Time Temp Pulse Resp B/P Pulse Ox O2 Delivery O2 Flow Rate FiO2 09/03/16 06:00 92 09/03/16 04:27 100 30 09/03/16 04:00 100.8 18 125/71 09/02/16 19:00 Mechanical Ventilator Intake and Output 09/02/16 09/02/16 09/03/16 08:00 16:00 00:00 Intake Total 861 ml 1419 ml 1264 ml Output Total 729 ml 859 ml 803 ml Balance 132 ml 560 ml 461 ml Result Diagram: 09/02/16 0600 09/03/16 0550 Objective Remarks GENERAL: male patient who is orotracheally intubated. critically ill. SKIN: Warm and dry. HEAD: wrapped in bandage which is clean and dry. EYES: Pupils 1 mm nonreactive bilaterally. No scleral icterus. No injection or drainage. ENT: No nasal bleeding or discharge. Mucous membranes pink and moist. NECK: Trachea midline. No JVD. CARDIOVASCULAR: . normal rate, regular rhythm. sinus by tele. RESPIRATORY: PRVC, fio2 40%. equal chest rise. GASTROINTESTINAL: Abdomen soft, non-tender, nondistended. : Kumar in place MSK: No obvious deformity. No edema NEUROLOGICAL: Pupils 1 mm nonreactive bilaterally. negative doll's eyes. ?weak corneal in right eye, negative corneal in left eye. negative gag. + cough. per nursing report he moves LEs spontaneously, but I did not witness this, and he does not withdraw to pain in any extremity for me today. today, my GCS is 3. A/P Assessment and Plan Assessment: 40yM with large posterior fossa IPH now s/p decompressive posterior fossa craniectomy 09/01. Persistent encephalopathy. very poor prognosis given size and location of the bleed. goals are aggressive. palliative care consulted. very critically ill at this point. His neurologic exam is likely secondary to persistent cerebral edema in the posterior fossa, though we have been aggressive with this. NEURO: Acute cerebellar hemorrhage (ICH Score 4) CT brain 09/01/16 - 4.9 x 5.3 cm right cerebellar hemorrhage with effacement of the fourth ventricle. CTA 09/01/16 - No e/o vascular abnormality. s/p Suboccipital craniectomy, cerebellar hemorrhage evacuation, ventriculostomy by Dr. Ovalles 09/01/16 Ventric at + 10 cm H20 per NSG, ICP 7 Continue Keppra 500 mg IV every 12 3% NaCl @ 30 ml/hr with serial sodium and serum osm. Maintain normothermia with Ofirmev/cooling blanket prn temp >100.4. (Ofirmev chosen due to vomiting, can transition to enteral tylenol when clinically appropriate) Target RASS -1, patient comfort and vent synchrony, RESP: Acute respiratory failure Aspiration Intubated at the scene by E VAC with no sedation End tidal CO2 monitoring. Target PaCO2 35-40. Duoneb q6 hours; Albuterol q2 hours prn wheezing no SBT today given cerebral edema and mental status. abg this morning. CV: Malignant Hypertension Labetalol 10 mg IV q4 hours prn SBP <150. Nicardipine to maintain systolic blood pressure less than 150 Obtain baseline EKG. GI: Vomiting- improving OG tube to low intermittent wall suction Zofran 4 mg IV q6 hours start trickle TF start bowel regimen. FEN/RENAL: Renal insufficiency, unknown baseline creatinine Hypokalemia ICU electrolyte protocol Kumar in place due to critically ill patient in need of accurate I/O monitoring and at risk for urinary obstruction Monitor I/O and creatinine Monitor electrolytes and replace as indicated per ICU electively replacement protocol. ID: Received Perioperative cefazolin. U/a with occasional bacteria, culture indicated, followup urine culture. Large amount of sputum production and e/o aspiration. Send sputum culture. Unasyn 3 gram IV q6 hours. will plan on de-escalating if NG in 48h. HEME: Monitor CBC, post op CBC pending. Coags WNL. Patient was not on anticoagulant or antiplatelet therapy. ENDO: Acute stress hyperglycemia Monitor bedside glucose and initiate low-dose insulin sliding scale as indicated PROPH: SCDs and teds for DVT prophylaxis. Pharmacologic DVT prophylaxis is contraindicated due to acute cerebellar hemorrhage. Protonix 40 mg IV daily for stress ulcer prophylaxis. ACCESS: Left radial art line placed in OR 09/01 Critical care time 37 minutes exclusive of separately billable procedures. Vasile Knight MD September 03, 2016 08:27
[2016-09-03] MEDS: NS + KCL 20 MEQ INJ 1,000 ML IV SCH ×2 (08:37→22:25)
[2016-09-03 08:38] LABS: BLOOD GAS BASE EXCESS -1.4 mmol/L (-2-2); BLOOD GAS HCO3 22 mmol/L (22-26); BLOOD GAS METHEMOGLOBIN 1.1 % (0-2); BLOOD GAS O2 HGB SATURATION 95 % (90-100); BLOOD GAS OXYGEN CONTENT 17.8 Vol % (12.0-20.0); BLOOD GAS PCO2 31 mmHg (38-42); BLOOD GAS PO2 91 mmHg (61-120); BLOOD GAS TOTAL HGB 13.3 G/DL (12.0-16.0); CRITICAL VALUE NO; DRAW SITE ART LINE; FIO2 30 %; OXYGEN DEVICE VENTILATOR; TEMP CORR TO 98.6
[2016-09-03 08:39] LABS: STAT NO; VENT SETTINGS PRVC
[2016-09-03] MEDS: SODIUM CHLORIDE 0.9% FLUSH 10 ML FLUSH SCH ×2 (09:07→20:11)
--- NOTE | 2016-09-03 09:19 | HHI.NSPN ---
(Edgar Wallace) History Chief Complaint: ICH s/p suboccipital craniectomy for evacuation. (Edgar Wallace) Interval History 40-year-old gentleman postop day #1 status post right suboccipital craniectomy with cerebellar hemorrhage evacuation and ventriculostomy placement. His ICPs have been normal postoperatively. When sedation was held he vomited and was noted to have some eye opening and right-sided movements per the nursing staff. 09/03/16: Pt sedated on Diprivan. Decreased by RN and pt reported tracked to right side. at bedside states he had some spontaneous movement in RUE and RLE. Pts bp increases and requires sedation and anti hypertensive meds. (Edgar Wallace) System Review Comments Not able to obtain given clinical status. (Edgar Wallace) Exam Results Vital Signs Date Time Temp Pulse Resp B/P Pulse Ox O2 Delivery O2 Flow Rate FiO2 09/03/16 08:02 100 30 09/03/16 07:00 Mechanical Ventilator 09/03/16 06:00 92 09/03/16 04:00 100.8 18 125/71 Intake and Output 09/02/16 09/02/16 09/02/16 07:59 15:59 23:59 Intake Total 861 ml 1419 ml 1264 ml Output Total 729 ml 859 ml 803 ml Balance 132 ml 560 ml 461 ml (Edgar Wallace) Physical Examination Resp: Intubated. Pressure controlled. Rate 18. Peep 5. FiO2 30%. Heart: NSR no murmurs Abd: Soft positive bs Skin: Head bandaged dry. SCDs in place. Muscle: Moves right side spontaneously when sedation held. No movement noted on left side. Neuro: Pt sedated on Diprivan. Pupils 3mm bilaterally slight reaction bilaterally. Not following commands. Ventriculostomy in place clear CSF. ICP 8. (Edgar Wallace) Lab, Micro, Other Results Last Impressions Chest X-Ray 09/02/16 0000 Signed Impressions: Service Date/Time: Friday, September 02, 2016 02:06 - CONCLUSION: Improvement in pulmonary edema. Erika Bob MD Neck CTA 09/01/162019 Signed Impressions: Service Date/Time: Thursday, September 01, 2016 20:55 - CONCLUSION: Unremarkable exam. The carotid arteries are intact. Ag Saxena MD Head CTA 09/01/162019 Signed Impressions: Service Date/Time: Thursday, September 01, 2016 20:55 - CONCLUSION: The etiology of the patient's right cerebellar h hemorrhage is not identified and there appears to be some infiltrates and possible pleural effusions in the upper lungs that are visualized. Erika Bob MD Head CT 09/01/161936 Signed Impressions: Service Date/Time: Thursday, September 01, 2016 19:46 - CONCLUSION: Large acute high density hemorrhage in the right cerebellar hemisphere with mass effect on the fourth ventricle. There is hemorrhage extending into the right suprasellar cisterns with asymmetry. Ag Saxena MD Laboratory Tests Test 09/02/16 09/02/16 09/03/16 09/03/16 11:25 17:40 00:50 05:50 Sodium Level 140 MEQ/L 141 MEQ/L 141 MEQ/L 142 MEQ/L Serum Osmolality 295 MOSM/KG 295 MOSM/KG 294 MOSM/KG 296 MOSM/KG Potassium Level 3.9 MEQ/L Phosphorus Level 2.9 MG/DL Magnesium Level 1.9 MG/DL Test 09/03/16 08:30 Blood Gas Puncture Site ART LINE Blood Gas Patient Temperature 98.6 Blood Gas HCO3 22 mmol/L Blood Gas Base Excess -1.4 mmol/L Blood Gas Oxygen Saturation 95 % Arterial Blood pH 7.46 Arterial Blood Partial 31 mmHg Pressure CO2 Arterial Blood Partial 91 mmHg Pressure O2 Arterial Blood Oxygen Content 17.8 Vol % Arterial Blood 1.0 % Carboxyhemoglobin Arterial Blood Methemoglobin 1.1 % Blood Gas Hemoglobin 13.3 G/DL Oxygen Delivery Device VENTILATOR Blood Gas Ventilator Setting PRVC Blood Gas Inspired Oxygen 30 % 09/02/16 09/02/16 09/03/16 14:59 22:59 06:59 Intake Total 1419 ml 1264 ml 1206 ml Output Total 859 ml 803 ml 943 ml Balance 560 ml 461 ml 263 ml Intake IV Total 1419 ml 1264 ml 1206 ml Output Urine Total 700 ml 600 ml 800 ml Gastric Drainage Total 50 ml 50 ml 0 ml Drainage Total 109 ml 153 ml 143 ml # Bowel Movements 0 0 0 (Edgar Wallace) Medical Decision Making Impression and Plan A: 40 y/o M with Large right cerebellar hemisphere spontaneous hemorrhage likely hypertensive with no underlying vascular abnormality noted. He is now postoperative day #2 status post suboccipital craniectomy with cervical hemorrhage evacuation and ventriculostomy placement. His ICPs have been normal. P: Continue with blood pressure control Continue with neuro checks Continue with critical care. (Edgar Wallace) Attending Statement The exam, history, and the medical decision-making described in the above note were completed with the assistance of the mid-level provider. I reviewed and agree with the findings presented. I attest that I had a [id number] encounter with the patient on the same day, and personally performed and documented my assessment and findings in the medical record. (Gutierrez Ovalles MD) Edgar Wallace September 03, 2016 09:19 Gutierrez Ovalles MD September 03, 2016 16:12
[2016-09-03] MEDS: PANTOPRAZOLE SODIUM 40 MG VIAL IV SCH (09:35)
[2016-09-03] MEDS: levETIRAcetam INJ 500 MG in SODIUM CHLORIDE 0.9% INJ 100 ML IV SCH ×2 (09:35→20:11)
[2016-09-03] MEDS: METOCLOPRAMIDE HCL SYRUP 10 MG/10 ML UDC PO SCH ×3 (10:10→20:10)
[2016-09-03] MEDS: niCARdipine INJ 25 MG in SODIUM CHLOR 0.9% 250 ML INJ 250 ML IV SCH ×2 (10:11→18:44)
[2016-09-03] MEDS: POLYETHYLENE GLYCOL 17 GM PKG PO SCH ×2 (10:14→20:11)
[2016-09-03] MEDS: DOCUSATE SODIUM 50 MG/SENNA 8.6 MG TAB PO SCH ×2 (10:14→20:10)
[2016-09-03] MEDS: 3% SALINE INJ 500 ML IV SCH (11:26)
[2016-09-03 12:07] LABS: HEMATOCRIT 40.5 % (39.0-51.0); MEAN CELL VOLUME 83.7 FL (80.0-100.0); MEAN CORPUSCULAR HEMOGLOBIN 27.4 PG (27.0-34.0); MEAN CORPUSCULAR HGB CONC 32.8 % (32.0-36.0); PLATELET COUNT 183 TH/MM3 (150-450); RED BLOOD COUNT 4.84 MIL/MM3 (4.50-5.90); RED CELL DISTRIBUTION WIDTH 14.6 % (11.6-17.2); REVIEW FLAG FINAL; WHITE BLOOD COUNT 16.1 TH/MM3 (4.0-11.0)
--- NOTE | 2016-09-03 12:15 | HHI.HCPN ---
Reason for visit a. To assist with evaluation and management of symptoms including: Shortness of breath and debility. b. To assist medical decision maker(s) with: better understanding of current medical conditions; weighing benefits/burdens of medical treatment options; making medical treatment decisions. . (Della Gonzalez) Subjective/Interval History Palliative care f/u for emotional support and to assist with communication. Mr. Isabel is a 40-year-old male with no significant past medical history who presented to the ED via EMS on 09/01/16 with large acute high density hemorrhage in the right cerebellar hemisphere with extension into the isaac, 5.3cm x 4.9cm in size. Patient status post decompressive craniectomy. Patient seen in ICU. Patient sedated, orally intubated on mechanical ventilation. Unresponsive to any verbal or tactile stimuli. Jaci and sister at bedside. Sister arrived yesterday from [place]. Laboratory for today showing sodium 142, serum osmolality 296. Most recent chest x-ray revealing improvement in pulmonary edema. Provided medical update since our conversation yesterday. Reviewed that no SBT today given cerebral edema and mental status. reports witnessing patient moving right arm/hand spontaneously. very tearful, reports that family members have continued visiting and they are offering much support needed during this difficult time. She verbalized struggling with patient's critical condition, remains hopeful. Strong holly beliefs. Would appreciate spiritual services visit. Palliative care will continue to follow-up as needed for emotional support and to assist with communication. Patient's verbalized appreciation for today's visit. . . Family/friend interactions See interval note. . (Della Gonzalez) Advance Directives Living Will: Never completed Health Care Surrogate: Never completed Durable Power of Packing And Final Assembly Supervisor: Never completed (Della Gonzalez) Advance Directive Specifics Health Care Surrogate(s): No living will or healthcare surrogate designation completed. As per [place] law, patient's Jaci Isabel is healthcare proxy. . Documented care wishes: No living will completed. . Significant change in goals: Full code. Continue aggressive care with the goal to allow time for medical improvement. . (Della Gonzalez) Objective Vital Signs Date Time Temp Pulse Resp B/P Pulse Ox O2 Delivery O2 Flow Rate FiO2 5/25/17 10:20 100 30 09/03/16 10:00 103 09/03/16 08:02 100 30 09/03/16 08:00 100.2 90 18 151/95 95 09/03/16 08:00 30 09/03/16 08:00 89 09/03/16 07:00 100 Mechanical Ventilator 30 09/03/16 06:00 92 09/03/16 04:27 100 30 09/03/16 04:00 101 09/03/16 04:00 100.8 101 18 125/71 100 09/03/16 04:00 30 09/03/16 02:00 99 09/03/16 01:08 100 30 09/03/16 00:00 100.4 99 18 143/80 100 09/03/16 00:00 99 09/03/16 00:00 30 09/02/16 22:00 100 09/02/16 21:00 100 30 09/02/16 20:00 100.4 100 18 141/88 100 09/02/16 20:00 30 09/02/16 20:00 100 09/02/16 19:00 100 Mechanical Ventilator 30 09/02/16 18:00 94 09/02/16 16:00 30 09/02/16 16:00 94 09/02/16 16:00 100.0 94 18 134/94 100 09/02/16 15:42 100 30 09/02/16 14:00 93 09/02/16 12:00 98 09/02/16 12:00 30 09/02/16 12:00 100.0 98 18 134/76 100 Intake & Output 09/03/16 09/03/16 07:00 19:00 Intake Total 2470 ml Output Total 1746 ml Balance 724 ml Intake IV Total 2470 ml Output Urine Total 1400 ml Gastric Drainage Total 50 ml Drainage Total 296 ml # Bowel Movements 0 Physical Exam CONSTITUTIONAL/GENERAL: This is an adequately nourished patient, in no apparent distress. Orally intubated on mechanical ventilation. TUBES/LINES/DRAINS: PIV's, arterial line, ET tube, OG, right EJ, left subclavian central line, Kumar catheter, SCDs, bilateral soft wrist restraints. SKIN: No jaundice, rashes, or lesions. No wounds seen anteriorly. Skin temperature appropriate. Not diaphoretic. HEAD: Atraumatic. Normocephalic. EYES: No scleral icterus. No injection or drainage. ENT: Unable to evaluate hearing secondary to clinical condition. Nose without bleeding or purulent drainage. Moist oral mucosa. CARDIOVASCULAR: Regular rate and rhythm without murmurs, gallops, or rubs. Peripheral pulses symmetric. RESPIRATORY/CHEST: Symmetric, unlabored respirations. Coarse breath sounds bilaterally. Orally intubated on mechanical ventilation. GASTROINTESTINAL: Abdomen soft, round. Bowel sounds present. GENITOURINARY: Without palpable bladder distension. Kumar catheter in place. MUSCULOSKELETAL: Extremities without clubbing, cyanosis. Trace edema to bilateral lower extremities. No mottling or clubbing. NEUROLOGICAL: Sedated and intubated on mechanical ventilation. Unresponsive to verbal or tactile stimuli. PSYCHIATRIC: Unable to evaluate secondary to clinical condition. . (Della Gonzalez) Diagnostic Tests Laboratory Laboratory Tests Test 09/01/16 09/01/16 09/01/16 09/02/16 19:40 20:10 20:20 00:20 White Blood Count 8.1 TH/MM3 14.4 TH/MM3 (4.0-11.0) (4.0-11.0) Red Blood Count 5.01 MIL/MM3 5.21 MIL/MM3 (4.50-5.90) (4.50-5.90) Hemoglobin 14.1 GM/DL 14.4 GM/DL (13.0-17.0) (13.0-17.0) Hematocrit 41.9 % 43.4 % (39.0-51.0) (39.0-51.0) Mean Corpuscular Volume 83.7 FL 83.2 FL (80.0-100.0) (80.0-100.0) Mean Corpuscular Hemoglobin 28.2 PG 27.6 PG (27.0-34.0) (27.0-34.0) Mean Corpuscular Hemoglobin 33.8 % 33.2 % Concent (32.0-36.0) (32.0-36.0) Red Cell Distribution Width 14.4 % 14.4 % (11.6-17.2) (11.6-17.2) Platelet Count 233 TH/MM3 239 TH/MM3 (150-450) (150-450) Mean Platelet Volume 8.4 FL 8.5 FL (7.0-11.0) (7.0-11.0) Neutrophils (%) (Auto) 43.7 % (16.0-70.0) Lymphocytes (%) (Auto) 46.0 % (9.0-44.0) Monocytes (%) (Auto) 7.4 % (0.0-8.0) Eosinophils (%) (Auto) 2.2 % (0.0-4.0) Basophils (%) (Auto) 0.7 % (0.0-2.0) Neutrophils # (Auto) 3.6 TH/MM3 (1.8-7.7) Lymphocytes # (Auto) 3.7 TH/MM3 (1.0-4.8) Monocytes # (Auto) 0.6 TH/MM3 (0-0.9) Eosinophils # (Auto) 0.2 TH/MM3 (0-0.4) Basophils # (Auto) 0.1 TH/MM3 (0-0.2) CBC Comment DIFF FINAL Differential Comment Prothrombin Time 10.8 SEC (9.8-11.6) Prothromb Time International 1.0 RATIO Ratio Activated Partial 22.9 SEC Thromboplast Time (24.3-30.1) Sodium Level 137 MEQ/L 139 MEQ/L (136-145) (136-145) Potassium Level 3.1 MEQ/L 3.2 MEQ/L (3.5-5.1) (3.5-5.1) Chloride Level 101 MEQ/L 103 MEQ/L (98-107) (98-107) Carbon Dioxide Level 25.3 MEQ/L 23.3 MEQ/L (21.0-32.0) (21.0-32.0) Anion Gap 11 MEQ/L (5-15) 13 MEQ/L (5-15) Blood Urea Nitrogen 19 MG/DL (7-18) 18 MG/DL (7-18) Creatinine 1.74 MG/DL 1.60 MG/DL (0.60-1.30) (0.60-1.30) Estimat Glomerular Filtration 53 ML/MIN (>89) 59 ML/MIN (>89) Rate Random Glucose 172 MG/DL 166 MG/DL (74-106) (74-106) Calcium Level 8.3 MG/DL 8.6 MG/DL (8.5-10.1) (8.5-10.1) Total Bilirubin 0.3 MG/DL (0.2-1.0) Aspartate Amino Transf 43 U/L (15-37) (AST/SGOT) Alanine Aminotransferase 50 U/L (12-78) (ALT/SGPT) Alkaline Phosphatase 83 U/L (45-117) Total Creatine Kinase 670 U/L (39-308) Creatine Kinase MB 2.3 NG/ML (0.5-3.6) Creatine Kinase MB % 0.3 % (0.0-4.0) Troponin I LESS THAN 0.02 NG/ML (0.02-0.05) B-Type Natriuretic Peptide 13 PG/ML (0-100) Total Protein 7.3 GM/DL (6.4-8.2) Albumin 3.3 GM/DL (3.4-5.0) Urine Color YELLOW (YELLW/STRAW) Urine Turbidity CLEAR (CLEAR) Urine pH 6.0 (5.0-8.5) Urine Specific Arab[place] 1.016 (1.002-1.035) Urine Protein 300 mg/dL (NEG-TRACE) Urine Glucose (UA) NEG mg/dL (NEG) Urine Ketones NEG mg/dL (NEG) Urine Occult Blood TRACE (NEG) Urine Nitrite NEG (NEG) Urine Bilirubin NEG (NEG) Urine Urobilinogen LESS THAN 2.0 MG/DL (LESS THAN 2.0) Urine Leukocyte Esterase NEG (NEG) Urine RBC 2 /hpf (0-3) Urine WBC 4 /hpf (0-5) Urine Bacteria OCC /hpf (NONE) Urine Mucus FEW /lpf (OCC) Microscopic Urinalysis Comment CATH-CULTURE IND Urine Opiates Screen NEG (NEG) Urine Barbiturates Screen NEG (NEG) Urine Amphetamines Screen NEG (NEG) Urine Benzodiazepines Screen NEG (NEG) Urine Cocaine Screen NEG (NEG) Urine Cannabinoids Screen NEG (NEG) Blood Type B NEGATIVE Antibody Screen NEGATIVE Blood Bank Comment Blood Gas Puncture Site RT RADIAL Blood Gas Patient Temperature 98.6 Blood Gas HCO3 25 mmol/L (22-26) Blood Gas Base Excess -0.2 mmol/L (-2-2) Blood Gas Oxygen Saturation 98 % (90-100) Arterial Blood pH 7.35 (7.380-7.420) Arterial Blood Partial 46 mmHg (38-42) Pressure CO2 Arterial Blood Partial 178 mmHG Pressure O2 (61-120) Arterial Blood Oxygen Content 19.0 Vol % (12.0-20.0) Arterial Blood 0.6 % (0-4) Carboxyhemoglobin Arterial Blood Methemoglobin 0.8 % (0-2) Blood Gas Hemoglobin 13.6 G/DL (12.0-16.0) Oxygen Delivery Device VENTILATOR Blood Gas Ventilator Setting Blood Gas Inspired Oxygen 100 % Magnesium Level 1.5 MG/DL (1.5-2.5) Test 09/02/16 09/02/16 09/02/16 09/02/16 00:22 03:11 03:49 05:43 Blood Gas Puncture Site JOEL MALDONADO Blood Gas Patient Temperature 98.6 98.6 Blood Gas HCO3 21 mmol/L 20 mmol/L (22-26) (22-26) Blood Gas Base Excess -3.6 mmol/L -3.7 mmol/L (-2-2) (-2-2) Blood Gas Oxygen Saturation 97 % (90-100) 97 % (90-100) Arterial Blood pH 7.39 7.45 (7.380-7.420) (7.380-7.420) Arterial Blood Partial 35 mmHg (38-42) 29 mmHg (38-42) Pressure CO2 Arterial Blood Partial 133 mmHG 135 mmHg Pressure O2 (61-120) (61-120) Arterial Blood Oxygen Content 20.6 Vol % 19.9 Vol % (12.0-20.0) (12.0-20.0) Arterial Blood 0.7 % (0-4) 0.9 % (0-4) Carboxyhemoglobin Arterial Blood Methemoglobin 0.8 % (0-2) 1.1 % (0-2) Blood Gas Hemoglobin 15.0 G/DL 14.5 G/DL (12.0-16.0) (12.0-16.0) Oxygen Delivery Device VENTILATOR VENTILATOR Blood Gas Ventilator Setting SEE COMMENT SEE COMMENT Blood Gas Inspired Oxygen 40 % 30 % Nasal Screen MRSA (PCR) MRSA NOT DETECTED (NOT DETECT) Serum Osmolality 301 MOSM/KG (275-295) Test 09/02/16 09/02/16 09/02/16 09/03/16 06:00 11:25 17:40 00:50 White Blood Count 15.5 TH/MM3 (4.0-11.0) Red Blood Count 5.10 MIL/MM3 (4.50-5.90) Hemoglobin 14.1 GM/DL (13.0-17.0) Hematocrit 42.2 % (39.0-51.0) Mean Corpuscular Volume 82.7 FL (80.0-100.0) Mean Corpuscular Hemoglobin 27.7 PG (27.0-34.0) Mean Corpuscular Hemoglobin 33.4 % Concent (32.0-36.0) Red Cell Distribution Width 14.2 % (11.6-17.2) Platelet Count 215 TH/MM3 (150-450) Mean Platelet Volume 8.8 FL (7.0-11.0) Neutrophils (%) (Auto) 87.0 % (16.0-70.0) Lymphocytes (%) (Auto) 4.2 % (9.0-44.0) Monocytes (%) (Auto) 8.5 % (0.0-8.0) Eosinophils (%) (Auto) 0.1 % (0.0-4.0) Basophils (%) (Auto) 0.2 % (0.0-2.0) Neutrophils # (Auto) 13.5 TH/MM3 (1.8-7.7) Lymphocytes # (Auto) 0.7 TH/MM3 (1.0-4.8) Monocytes # (Auto) 1.3 TH/MM3 (0-0.9) Eosinophils # (Auto) 0.0 TH/MM3 (0-0.4) Basophils # (Auto) 0.0 TH/MM3 (0-0.2) CBC Comment DIFF FINAL Differential Comment Sodium Level 138 MEQ/L 140 MEQ/L 141 MEQ/L 141 MEQ/L (136-145) (136-145) (136-145) (136-145) Potassium Level 4.7 MEQ/L 3.9 MEQ/L (3.5-5.1) (3.5-5.1) Chloride Level 106 MEQ/L (98-107) Carbon Dioxide Level 22.5 MEQ/L (21.0-32.0) Anion Gap 10 MEQ/L (5-15) Blood Urea Nitrogen 17 MG/DL (7-18) Creatinine 1.39 MG/DL (0.60-1.30) Estimat Glomerular Filtration 69 ML/MIN (>89) Rate Random Glucose 134 MG/DL (74-106) Serum Osmolality 295 MOSM/KG 295 MOSM/KG 295 MOSM/KG 294 MOSM/KG (275-295) (275-295) (275-295) (275-295) Calcium Level 8.6 MG/DL (8.5-10.1) Phosphorus Level 0.6 MG/DL 2.9 MG/DL (2.5-4.9) (2.5-4.9) Magnesium Level 1.4 MG/DL 1.9 MG/DL (1.5-2.5) (1.5-2.5) Total Bilirubin 0.5 MG/DL (0.2-1.0) Aspartate Amino Transf 33 U/L (15-37) (AST/SGOT) Alanine Aminotransferase 46 U/L (12-78) (ALT/SGPT) Alkaline Phosphatase 56 U/L (45-117) Total Protein 7.2 GM/DL (6.4-8.2) Albumin 3.1 GM/DL (3.4-5.0) Test 09/03/16 09/03/16 05:50 08:30 Sodium Level 142 MEQ/L (136-145) Serum Osmolality 296 MOSM/KG (275-295) Blood Gas Puncture Site ART LINE Blood Gas Patient Temperature 98.6 Blood Gas HCO3 22 mmol/L (22-26) Blood Gas Base Excess -1.4 mmol/L (-2-2) Blood Gas Oxygen Saturation 95 % (90-100) Arterial Blood pH 7.46 (7.380-7.420) Arterial Blood Partial 31 mmHg (38-42) Pressure CO2 Arterial Blood Partial 91 mmHg Pressure O2 (61-120) Arterial Blood Oxygen Content 17.8 Vol % (12.0-20.0) Arterial Blood 1.0 % (0-4) Carboxyhemoglobin Arterial Blood Methemoglobin 1.1 % (0-2) Blood Gas Hemoglobin 13.3 G/DL (12.0-16.0) Oxygen Delivery Device VENTILATOR Blood Gas Ventilator Setting [facility] Blood Gas Inspired Oxygen 30 % (Della Gonzalez) Result Diagram: 09/02/16 0600 09/03/16 0550 Microbiology Microbiology Date/Time Procedure Status Source Growth 09/01/16 20:10 Urine Culture - Final Complete Urine Catheterized Urine NO GROWTH IN 48 HOURS. 09/02/16 03:44 Aerobic Blood Culture - Preliminary Resulted Blood Peripheral NO GROWTH IN 1 DAY 09/02/16 03:44 Anaerobic Blood Culture - Preliminary Resulted Blood Peripheral NO GROWTH IN 1 DAY 09/02/16 03:49 Aerobic Blood Culture - Preliminary Resulted Blood Peripheral NO GROWTH IN 1 DAY 09/02/16 03:49 Anaerobic Blood Culture - Preliminary Resulted Blood Peripheral NO GROWTH IN 1 DAY 09/02/16 04:19 Gram Stain - Final Resulted Sputum Endotracheal 09/02/16 04:19 Sputum Culture - Preliminary Resulted Sputum Endotracheal HEAVY GROWTH NORMAL RESPIRATORY RYAN... Imaging Last 48 hours Impressions Chest X-Ray 09/02/16 0000 Signed Impressions: Service Date/Time: Friday, September 02, 2016 02:06 - CONCLUSION: Improvement in pulmonary edema. Erika Bob MD Neck CTA 09/01/162019 Signed Impressions: Service Date/Time: Thursday, September 01, 2016 20:55 - CONCLUSION: Unremarkable exam. The carotid arteries are intact. Ag Saxena MD Head CTA 09/01/162019 Signed Impressions: Service Date/Time: Thursday, September 01, 2016 20:55 - CONCLUSION: The etiology of the patient's right cerebellar h hemorrhage is not identified and there appears to be some infiltrates and possible pleural effusions in the upper lungs that are visualized. Erika Bob MD Head CT 09/01/161936 Signed Impressions: Service Date/Time: Thursday, September 01, 2016 19:46 - CONCLUSION: Large acute high density hemorrhage in the right cerebellar hemisphere with mass effect on the fourth ventricle. There is hemorrhage extending into the right suprasellar cisterns with asymmetry. Ag Saxena MD Chest X-Ray 09/01/161936 Signed Impressions: Service Date/Time: Thursday, September 01, 2016 19:52 - CONCLUSION: 1. Endotracheal tube in place with the tip 4 cm above the dustin. 2. Midinspiratory exam with bilateral patchy opacity left greater than right. This could represent aspiration pneumonia or early pulmonary edema. Ag Saxena MD Procedures * 09/01/16 -Right suboccipital craniectomy with evacuation of cerebellar hemorrhage; right frontal bur hole ventriculostomy placement. . (Della Gonzalez) Assessment and Plan Disease Oriented Problem List: (1) Spontaneous intraparenchymal intracranial hemorrhage, acute (2) Acute respiratory failure (3) Malignant hypertension Symptom Scale: (1) Shortness of breath 0-10 Scale: Unable to quantify Comment: Secondary to acute respiratory failure. Patient remains intubated on mechanical ventilation. (2) Pain 0-10 Scale: Unable to quantify Comment: Secondary to recent surgical intervention, hospitalization/bedrest. (3) Vomiting 0-10 Scale: Unable to quantify Comment: Currently on Reglan. Pertinent Non-Medical Issues Psychosocial: . Has 2 children. Originally from [place]. Spiritual: Protestant holly. Legal: No advance directives completed. Ethical issues impacting care: No advance directives completed. . Important Contacts /HCS Jaci Isabel ([phone]. . Prognosis Mr. Isabel is a 40-year-old male with no significant past medical history who presented on 09/01/16 with large right cerebellar hemisphere hemorrhage with extension into the isaac. He underwent right suboccipital craniectomy with evacuation of cerebellar hemorrhage; right frontal bur hole ventriculostomy placement. Patient at high risk for further complications, continue decline and . Poor prognosis for meaningful functional/neurological recovery. . Code Status: Full Code Plan * CODE STATUS: Full code. * HEALTHCARE DECISION-MAKER: Patient incapacitated secondary to clinical condition, unresponsive -intubated on mechanical ventilation. No advance directives completed. As per [place] law, patient's Jaci Isabel is proxy decision maker. She has accepted this role. * GOALS OF CARE: Continue full aggressive care to include full code at this time. Goal is to allow time for clinical improvement. with a strong holly base, hoping for recovery. Reviewed with that patient remains in critical condition, high risk for further complications, continue decline and . Uncertain prognosis for a meaningful functional/neurological recovery at this time. * SYMPTOMS: = Shortness of breath: Multifactorial. Secondary to acute respiratory failure/acute cerebellar hemorrhage. Remains orally intubated on mechanical ventilation. FiO2 30%. = Pain: Secondary to recent surgical intervention, orally intubation, bedrest status. Fentanyl available as needed. = Vomiting: One episode reported yesterday. Patient was started on Reglan. Patient on bowel regimen. * Spiritual services were offered and accepted by patient's Jaci. Referral has been made. * Case discussed with bedside RN. * Palliative care contact information has been provided to patient's . * Ongoing emotional support and active listening provided to patient's Jaci. * Palliative care will continue to follow-up as needed for further clarifications of goals of care, assist with communication and to provide ongoing emotional support throughout this hospitalization. . (Della Gonzalez) Time Spent Total Floor Time (mins): 32 (Total time to include review and summarization of medical records, physical exam, conversation with patient's and case discussion with RN.) >50% Counseling/Coord of Care: Yes (Della Gonzalez) Attestation To help prompt me to consider important information that might be impacting today's encounter and assessment, information from prior notes written by myself or my colleagues may have been "brought forward" into today's note. My signature on this note, however, is an attestation that I personally performed the exam, history, and/or decision-making noted today, and, unless otherwise indicated, the interactions with patient, family, and staff as well as the review of records all occurred today. I also attest that the listed assessment and stated plan reflect my best clinical judgment today based on the combination of historical information, prior notes, and today's exam/ interactions. When time spent is documented, it refers only to time spent today by the signer, or if indicated, combined time spent today by collaborating physician/nurse practitioner. (Della Gonzalez) Collaborating MD Comments . Chart reviewed. Case discussed with palliative care CATTLE SORTER. Above LIZETTE note reviewed and I concur. . (Antonio Matias MD) Della Gonzalez September 03, 2016 12:14 Antonio Matias MD September 08, 2016 16:34
[2016-09-03 12:27] LABS: BICARBONATE 24.2 MEQ/L (21.0-32.0); POTASSIUM 3.9 MEQ/L (3.5-5.1)
[2016-09-04] VITALS (20 sets, daily range): BP systolic 115–155; BP diastolic 62–87; PULSE 95–115; RESP 16; TEMP 99–100.6; O2SAT 94–100
[2016-09-04] MEDS: AMPICILLIN-SULBACTAM INJ 3 GM in SODIUM CHLORIDE 0.9% INJ 100 ML IV SCH ×5 (00:30→23:45)
[2016-09-04] MEDS: PROPOFOL 1000 MG/100 ML INJ 100 ML IV SCH ×5 (00:31→23:42)
[2016-09-04] MEDS: 3% SALINE INJ 500 ML IV SCH (00:32)
[2016-09-04] MEDS ORDERED: SODIUM CHLOR 0.9% 250 ML INJ 250 ML ONE (01:36)
[2016-09-04] MEDS: niCARdipine INJ 25 MG in SODIUM CHLOR 0.9% 250 ML INJ 250 ML IV SCH ×4 (01:57→21:58)
[2016-09-04] MEDS: ACETAMINOPHEN 1000 MG/100 ML VIAL IV PRN ×2 (01:58→12:45)
[2016-09-04 02:36] LABS: HEMATOCRIT 37.2 % (39.0-51.0); MEAN CELL VOLUME 82.6 FL (80.0-100.0); MEAN CORPUSCULAR HEMOGLOBIN 28.5 PG (27.0-34.0); MEAN CORPUSCULAR HGB CONC 34.5 % (32.0-36.0); PLATELET COUNT 192 TH/MM3 (150-450); RED CELL DISTRIBUTION WIDTH 14.8 % (11.6-17.2); REVIEW FLAG FINAL; WHITE BLOOD COUNT 14.4 TH/MM3 (4.0-11.0)
[2016-09-04 02:48] LABS: BICARBONATE 26.2 MEQ/L (21.0-32.0); POTASSIUM 4.1 MEQ/L (3.5-5.1)
[2016-09-04] MEDS: INSULIN ASPART SUPPLEMENTAL SCALE SQ SCH ×4 (04:00→21:55)
[2016-09-04] MEDS: CHLORHEXIDINE GLUCONATE 2 % 1 PACK (2 CLOTHS) TOP SCH (04:00)
[2016-09-04] MEDS: RESP: ALBUTEROL 2.5 MG/IPRATROPIUM 0.5 MG NEB (SCH) INH ×4 (04:20→20:26)
[2016-09-04] MEDS ORDERED: ATROPINE SULFATE 1 MG/10 ML SYRINGE ONE (04:31)
[2016-09-04] MEDS ORDERED: LIDOCAINE HCL 2% 100 MG/5 ML SYRINGE ONE (04:31)
[2016-09-04] MEDS ORDERED: EPINEPHrine HCL (1:10,000) 1 MG/10 ML SYRINGE ONE (04:33)
--- NOTE | 2016-09-04 05:36 | RADRPT ---
EXAM DATE/TIME: 09/04/2016 05:01 [facility] COMPARISON: CT BRAIN W/O CONTRAST, September 01, 2016, 19:46. INDICATIONS : Evaluate intracerebral hemorrhage post op. RADIATION DOSE: 63.96 CTDIvol (mGy) MEDICAL HISTORY : Non-responsive. SURGICAL HISTORY : Non-responsive. ENCOUNTER: Subsequent ACUITY: 3 days PAIN SCALE: Non-responsive LOCATION: cranial TECHNIQUE: Multiple contiguous axial images were obtained of the head. Using automated exposure control and adj ustment of the mA and/or kV according to patient size, radiation dose was kept as low as reasonably a chievable to obtain optimal diagnostic quality images. FINDINGS: CEREBRUM: The ventricles are normal for age. No evidence of midline shift, mass lesion, hemorrhage or acute in farction. No extra-axial fluid collections are seen. Right-sided ventriculostomy catheter has been p laced. Minimal pneumocephalus. POSTERIOR FOSSA: There's been a suboccipital craniotomy with significant decompression of the previous large right cer ebellar hemorrhage. There is residual air cavity measuring 3.2 x 1.4 cm. There is some hemorrhage ext ending into the middle cerebellar peduncle into the brainstem, unchanged since the previous study. EXTRACRANIAL: The visualized portion of the orbits is intact. SKULL: The calvaria is intact. No evidence of skull fracture. CONCLUSION: Right sided suboccipital craniotomy with decompression of the large intraparenchymal right cerebellar hematoma seen previously. Still several residual hemorrhage extending into the middle cerebellar pe duncle and the right side of the brainstem unchanged. Ventriculostomy catheter in good position Keith Malave MD on September 04, 2016 at 5:32 Board Certified Radiologist. This report was verified electronically.
[2016-09-04] MEDS: METOCLOPRAMIDE HCL SYRUP 10 MG/10 ML UDC PO SCH ×4 (06:09→21:16)
[2016-09-04] MEDS: NS + KCL 20 MEQ INJ 1,000 ML IV SCH ×2 (08:27→20:22)
[2016-09-04] MEDS: CHLORHEXIDINE 0.12% (ORAL KIT) 15 ML CUP MT SCH ×2 (08:33→20:00)
[2016-09-04] MEDS: BISACODYL 10 MG SUPP RECTAL SCH (09:00)
[2016-09-04] MEDS: SODIUM CHLORIDE 0.9% FLUSH 10 ML FLUSH SCH ×2 (09:00→21:00)
--- NOTE | 2016-09-04 09:10 | HHI.NSPN ---
(Edgar Wallace) History Chief Complaint: ICH s/p suboccipital craniectomy for evacuation. (Edgar Wallace) Interval History 40-year-old gentleman postop day #1 status post right suboccipital craniectomy with cerebellar hemorrhage evacuation and ventriculostomy placement. His ICPs have been normal postoperatively. When sedation was held he vomited and was noted to have some eye opening and right-sided movements per the nursing staff. 09/03/16: Pt sedated on Diprivan. Decreased by RN and pt reported tracked to right side. at bedside states he had some spontaneous movement in RUE and RLE. Pts bp increases and requires sedation and anti hypertensive meds. 09/04/16: Pt sedated on Diprivan. When sedation decreased by RN patient opens both eyes and follow commands on the right side. He has left hemiplegia. Patient intubated and sedated. (Edgar Wallace) System Review Comments Unable to obtain given clinical status. (Edgar Wallace) Exam Results Vital Signs Date Time Temp Pulse Resp B/P Pulse Ox O2 Delivery O2 Flow Rate FiO2 09/04/16 08:00 100 Mechanical Ventilator 30 09/04/16 08:00 100.4 107 16 136/83 Intake and Output 09/03/16 09/03/16 09/04/16 08:00 16:00 00:00 Intake Total 1206 ml 1574 ml 1243 ml Output Total 943 ml 1457 ml 1354 ml Balance 263 ml 117 ml -111 ml (Edgar Wallace) Physical Examination Resp: Intubated. Pressure controlled. Rate 16. Peep 5. FiO2 30%. Heart: NSR no murmurs Abd: Soft positive bs Skin: Head bandaged dry. SCDs in place. Muscle: Moves right side to command when sedation decreased. No movement noted on left side. Neuro: Pt sedated on Diprivan. He opens his eyes when sedation decreased. Pupils 3mm bilaterally slight reaction bilaterally. Following commands for RN when sedation decreased. Ventriculostomy in place clear CSF. ICP 8. (Edgar Wallace) Lab, Micro, Other Results Last Impressions Head CT 09/04/16599 Signed Impressions: Service Date/Time: Sunday, September 04, 2016 05:01 - CONCLUSION: Right sided suboccipital craniotomy with decompression of the large intraparenchymal right cerebellar hematoma seen previously. Still several residual hemorrhage extending into the middle cerebellar peduncle and the right side of the brainstem unchanged. Ventriculostomy catheter in good position Keith Malave MD Chest X-Ray 09/02/16 Signed Impressions: Service Date/Time: Friday, September 02, 2016 02:06 - CONCLUSION: Improvement in pulmonary edema. Erika Bob MD Neck CTA 09/01/162019 Signed Impressions: Service Date/Time: Thursday, September 01, 2016 20:55 - CONCLUSION: Unremarkable exam. The carotid arteries are intact. Ag Saxena MD Head CTA 09/01/162019 Signed Impressions: Service Date/Time: Thursday, September 01, 2016 20:55 - CONCLUSION: The etiology of the patient's right cerebellar h hemorrhage is not identified and there appears to be some infiltrates and possible pleural effusions in the upper lungs that are visualized. Erika Bob MD Last Impressions Head CT 09/04/16599 Signed Impressions: Service Date/Time: Sunday, September 04, 2016 05:01 - CONCLUSION: Right sided suboccipital craniotomy with decompression of the large intraparenchymal right cerebellar hematoma seen previously. Still several residual hemorrhage extending into the middle cerebellar peduncle and the right side of the brainstem unchanged. Ventriculostomy catheter in good position Keith Malave MD Chest X-Ray 09/02/16 Signed Impressions: Service Date/Time: Friday, September 02, 2016 02:06 - CONCLUSION: Improvement in pulmonary edema. Erika Bob MD Neck CTA 09/01/162019 Signed Impressions: Service Date/Time: Thursday, September 01, 2016 20:55 - CONCLUSION: Unremarkable exam. The carotid arteries are intact. Ag Saxena MD Head CTA 09/01/162019 Signed Impressions: Service Date/Time: Thursday, September 01, 2016 20:55 - CONCLUSION: The etiology of the patient's right cerebellar h hemorrhage is not identified and there appears to be some infiltrates and possible pleural effusions in the upper lungs that are visualized. Erika Bob MD Laboratory Tests Test 09/03/16 09/03/16 09/04/16 11:56 19:12 02:05 White Blood Count 16.1 TH/MM3 14.4 TH/MM3 Red Blood Count 4.84 MIL/MM3 4.50 MIL/MM3 Hemoglobin 13.3 GM/DL 12.8 GM/DL Hematocrit 40.5 % 37.2 % Mean Corpuscular Volume 83.7 FL 82.6 FL Mean Corpuscular Hemoglobin 27.4 PG 28.5 PG Mean Corpuscular Hemoglobin 32.8 % 34.5 % Concent Red Cell Distribution Width 14.6 % 14.8 % Platelet Count 183 TH/MM3 192 TH/MM3 Mean Platelet Volume 8.3 FL 8.5 FL Sodium Level 141 MEQ/L 140 MEQ/L 142 MEQ/L Potassium Level 3.9 MEQ/L 4.1 MEQ/L Chloride Level 110 MEQ/L 108 MEQ/L Carbon Dioxide Level 24.2 MEQ/L 26.2 MEQ/L Anion Gap 7 MEQ/L 8 MEQ/L Blood Urea Nitrogen 13 MG/DL 11 MG/DL Creatinine 1.31 MG/DL 1.29 MG/DL Estimat Glomerular Filtration 74 ML/MIN 76 ML/MIN Rate Random Glucose 109 MG/DL 115 MG/DL Serum Osmolality 299 MOSM/KG Calcium Level 8.4 MG/DL 8.3 MG/DL 09/03/16 09/03/16 09/04/16 15:00 23:00 07:00 Intake Total 1574 ml 1243 ml 1262 ml Output Total 1457 ml 1354 ml 1056 ml Balance 117 ml -111 ml 206 ml Intake IV Total 1374 ml 978 ml 850 ml Tube Feeding 145 ml 292 ml Other 200 ml 120 ml 120 ml Output Urine Total 1300 ml 1200 ml 900 ml Gastric Drainage Total 0 ml 0 ml 0 ml Tube Feeding Residual Discard 0 ml Drainage Total 157 ml 154 ml 156 ml # Bowel Movements 0 0 0 (Edgar Wallace) Medical Decision Making Impression and Plan A: 40 y/o M with Large right cerebellar hemisphere spontaneous hemorrhage likely hypertensive with no underlying vascular abnormality noted. He is now postoperative day #3 status post suboccipital craniectomy with intracranial hemorrhage evacuation and ventriculostomy placement. His ICPs have been normal at 8. P: Continue with blood pressure control Continue with neuro checks Continue with critical care. Discussed with at bedside. (Edgar Wallace) Attending Statement The exam, history, and the medical decision-making described in the above note were completed with the assistance of the mid-level provider. I reviewed and agree with the findings presented. I attest that I had a [id number] encounter with the patient on the same day, and personally performed and documented my assessment and findings in the medical record. Follow-up CT scan with evacuated cerebellar hemorrhage and stable right brainstem/isaac hemorrhage. No hydrocephalus. We will start challenging ventriculostomy and wean sedation as tolerated. Discussed with at bedside. (Gutierrez Ovalles MD) Edgar Wallace September 04, 2016 09:10 Gutierrez Ovalles MD September 04, 2016 13:32
[2016-09-04] MEDS: POLYETHYLENE GLYCOL 17 GM PKG PO SCH ×2 (09:46→21:16)
[2016-09-04] MEDS: DOCUSATE SODIUM 50 MG/SENNA 8.6 MG TAB PO SCH ×2 (09:47→21:16)
[2016-09-04] MEDS: PANTOPRAZOLE SODIUM 40 MG VIAL IV SCH (09:48)
[2016-09-04] MEDS: levETIRAcetam INJ 500 MG in SODIUM CHLORIDE 0.9% INJ 100 ML IV SCH ×2 (09:48→21:16)
--- NOTE | 2016-09-04 12:29 | HHI.HCPN ---
Reason for visit a. To assist with evaluation and management of symptoms including: Shortness of breath and debility. b. To assist medical decision maker(s) with: better understanding of current medical conditions; weighing benefits/burdens of medical treatment options; making medical treatment decisions. . (Della Gonzalez) Subjective/Interval History Palliative care f/u for emotional support and to assist with communication. Mr. Isabel is a 40-year-old male with no significant past medical history who presented to the ED via EMS on 09/01/16 with large acute high density hemorrhage in the right cerebellar hemisphere with extension into the isaac, 5.3cm x 4.9cm in size. Patient status post decompressive craniectomy. Patient seen in ICU. Patient sedated, intubated on mechanical ventilation. Unresponsive to verbal or tactile stimuli during my visit. Jaci and her mother at bedside. Jaci tells me that when sedation was decreased earlier this morning, patient was seen moving right arm and right leg is spontaneously and appears to follow some commands. Patient with low-grade temperature, Max temp today 100.4. Slightly tachycardic with heart rate in the low 100's. SBP in the 140s. Laboratory today showing WBC 14.4, Hgb 12.8, platelet count 192. Sodium 142, potassium 4.1, BUN/creatinine 8/1.29. Repeat head CT 09/04/16 revealing procedural hemorrhage extending into the middle cerebellar on the right side of the brainstem. Spoke with patient's at bedside. She verbalized feeling very optimistic/ hopeful about pt's neurological improvement. Shared with images of repeat CT scan. Reviewed positive sputum culture 09/02/16 for gram-negative rods. Review current medical management to include antibiotic treatment. Discussed with that additional time is still needed in order to appropriately evaluate prognosis for a meaningful functional recovery. Reviewed with likely trajectory of hospitalization to include ventilator weaning trials as tolerated. Discussed timing of tracheostomy and PEG placement in the setting of inability to wean off vent support within the recommended time. Reviewed that patient remains at high risk for further complications, continue decline and . verbalized awareness. Jaci appreciative of my visit today. Spiritual services following, chaplain Pierce visited pt's Jaci yesterday. Offered palliative care assistance to in regards to completion of FMLA documentation. 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 . Family/friend interactions See interval note. . (Della Gonzalez) Advance Directives Living Will: Never completed Health Care Surrogate: Never completed Durable Power of Grocery Team Member: Never completed (Della Gonzalez) Advance Directive Specifics Health Care Surrogate(s): No living will or healthcare surrogate designation completed. As per [place] law, patient's Jaci Isabel is healthcare proxy. . Documented care wishes: No living will completed. . Significant change in goals: Full code. Continue current aggressive management. . (Della Gonzalez) Objective Vital Signs Date Time Temp Pulse Resp B/P Pulse Ox O2 Delivery O2 Flow Rate FiO2 09/04/16 11:00 107 09/04/16 09:24 100 09/04/16 09:14 100 30 09/04/16 08:00 100 Mechanical Ventilator 30 09/04/16 08:00 30 09/04/16 08:00 100.4 107 16 100 136/83 09/04/16 08:00 107 09/04/16 06:00 102 09/04/16 04:40 100 100 09/04/16 04:00 30 09/04/16 04:00 100.0 112 16 142/66 100 09/04/16 04:00 112 09/04/16 02:00 102 09/04/16 00:19 100 30 09/04/16 00:00 100.4 96 16 146/87 99 09/04/16 00:00 30 09/04/16 00:00 96 09/03/16 22:00 92 09/03/16 20:00 30 09/03/16 20:00 100.2 103 16 111/61 99 09/03/16 20:00 111 09/03/16 19:36 100 30 09/03/16 19:00 100 Mechanical Ventilator 30 09/03/16 18:00 112 09/03/16 16:09 100 30 09/03/16 16:00 100.9 104 18 139/79 98 09/03/16 16:00 104 09/03/16 16:00 30 09/03/16 14:00 109 09/03/16 13:23 100 30 Intake & Output 09/04/16 09/04/16 07:00 19:00 Intake Total 2505 ml Output Total 2410 ml 0 ml Balance 95 ml 0 ml Intake IV Total 1828 ml Tube Feeding 437 ml Other 240 ml Output Urine Total 2100 ml Gastric Drainage Total 0 ml Tube Feeding Residual Discard 0 ml 0 ml Drainage Total 310 ml # Bowel Movements 0 Physical Exam CONSTITUTIONAL/GENERAL: This is an adequately nourished patient, in no apparent distress. Orally intubated on mechanical ventilation. TUBES/LINES/DRAINS: PIV's, arterial line, ET tube, OG, right EJ, left subclavian central line, Kumar catheter, SCDs, bilateral soft wrist restraints. SKIN: No jaundice, rashes, or lesions. No wounds seen anteriorly. Skin temperature appropriate. Not diaphoretic. HEAD: Atraumatic. Normocephalic. EYES: No scleral icterus. No injection or drainage. ENT: Unable to evaluate hearing secondary to clinical condition. Nose without bleeding or purulent drainage. Moist oral mucosa. CARDIOVASCULAR: Regular rate and rhythm without murmurs, gallops, or rubs. Peripheral pulses symmetric. RESPIRATORY/CHEST: Symmetric, unlabored respirations. Coarse breath sounds bilaterally. Orally intubated on mechanical ventilation. GASTROINTESTINAL: Abdomen soft, round. Bowel sounds present. GENITOURINARY: Without palpable bladder distension. Kumar catheter in place. MUSCULOSKELETAL: Extremities without clubbing, cyanosis. Trace edema to bilateral lower extremities. No mottling or clubbing. NEUROLOGICAL: Sedated and intubated on mechanical ventilation. Unresponsive to verbal or tactile stimuli during my assessment. PSYCHIATRIC: Unable to evaluate secondary to clinical condition. . (Della Gonzalez) Diagnostic Tests Laboratory Laboratory Tests Test 09/01/16 09/01/16 09/01/16 09/02/16 19:40 20:10 20:20 00:20 White Blood Count 8.1 TH/MM3 14.4 TH/MM3 (4.0-11.0) (4.0-11.0) Red Blood Count 5.01 MIL/MM3 5.21 MIL/MM3 (4.50-5.90) (4.50-5.90) Hemoglobin 14.1 GM/DL 14.4 GM/DL (13.0-17.0) (13.0-17.0) Hematocrit 41.9 % 43.4 % (39.0-51.0) (39.0-51.0) Mean Corpuscular Volume 83.7 FL 83.2 FL (80.0-100.0) (80.0-100.0) Mean Corpuscular Hemoglobin 28.2 PG 27.6 PG (27.0-34.0) (27.0-34.0) Mean Corpuscular Hemoglobin 33.8 % 33.2 % Concent (32.0-36.0) (32.0-36.0) Red Cell Distribution Width 14.4 % 14.4 % (11.6-17.2) (11.6-17.2) Platelet Count 233 TH/MM3 239 TH/MM3 (150-450) (150-450) Mean Platelet Volume 8.4 FL 8.5 FL (7.0-11.0) (7.0-11.0) Neutrophils (%) (Auto) 43.7 % (16.0-70.0) Lymphocytes (%) (Auto) 46.0 % (9.0-44.0) Monocytes (%) (Auto) 7.4 % (0.0-8.0) Eosinophils (%) (Auto) 2.2 % (0.0-4.0) Basophils (%) (Auto) 0.7 % (0.0-2.0) Neutrophils # (Auto) 3.6 TH/MM3 (1.8-7.7) Lymphocytes # (Auto) 3.7 TH/MM3 (1.0-4.8) Monocytes # (Auto) 0.6 TH/MM3 (0-0.9) Eosinophils # (Auto) 0.2 TH/MM3 (0-0.4) Basophils # (Auto) 0.1 TH/MM3 (0-0.2) CBC Comment DIFF FINAL Differential Comment Prothrombin Time 10.8 SEC (9.8-11.6) Prothromb Time International 1.0 RATIO Ratio Activated Partial 22.9 SEC Thromboplast Time (24.3-30.1) Sodium Level 137 MEQ/L 139 MEQ/L (136-145) (136-145) Potassium Level 3.1 MEQ/L 3.2 MEQ/L (3.5-5.1) (3.5-5.1) Chloride Level 101 MEQ/L 103 MEQ/L (98-107) (98-107) Carbon Dioxide Level 25.3 MEQ/L 23.3 MEQ/L (21.0-32.0) (21.0-32.0) Anion Gap 11 MEQ/L (5-15) 13 MEQ/L (5-15) Blood Urea Nitrogen 19 MG/DL (7-18) 18 MG/DL (7-18) Creatinine 1.74 MG/DL 1.60 MG/DL (0.60-1.30) (0.60-1.30) Estimat Glomerular Filtration 53 ML/MIN (>89) 59 ML/MIN (>89) Rate Random Glucose 172 MG/DL 166 MG/DL (74-106) (74-106) Calcium Level 8.3 MG/DL 8.6 MG/DL (8.5-10.1) (8.5-10.1) Total Bilirubin 0.3 MG/DL (0.2-1.0) Aspartate Amino Transf 43 U/L (15-37) (AST/SGOT) Alanine Aminotransferase 50 U/L (12-78) (ALT/SGPT) Alkaline Phosphatase 83 U/L (45-117) Total Creatine Kinase 670 U/L (39-308) Creatine Kinase MB 2.3 NG/ML (0.5-3.6) Creatine Kinase MB % 0.3 % (0.0-4.0) Troponin I LESS THAN 0.02 NG/ML (0.02-0.05) B-Type Natriuretic Peptide 13 PG/ML (0-100) Total Protein 7.3 GM/DL (6.4-8.2) Albumin 3.3 GM/DL (3.4-5.0) Urine Color YELLOW (YELLW/STRAW) Urine Turbidity CLEAR (CLEAR) Urine pH 6.0 (5.0-8.5) Urine Specific [place] 1.016 (1.002-1.035) Urine Protein 300 mg/dL (NEG-TRACE) Urine Glucose (UA) NEG mg/dL (NEG) Urine Ketones NEG mg/dL (NEG) Urine Occult Blood TRACE (NEG) Urine Nitrite NEG (NEG) Urine Bilirubin NEG (NEG) Urine Urobilinogen LESS THAN 2.0 MG/DL (LESS THAN 2.0) Urine Leukocyte Esterase NEG (NEG) Urine RBC 2 /hpf (0-3) Urine WBC 4 /hpf (0-5) Urine Bacteria OCC /hpf (NONE) Urine Mucus FEW /lpf (OCC) Microscopic Urinalysis Comment CATH-CULTURE IND Urine Opiates Screen NEG (NEG) Urine Barbiturates Screen NEG (NEG) Urine Amphetamines Screen NEG (NEG) Urine Benzodiazepines Screen NEG (NEG) Urine Cocaine Screen NEG (NEG) Urine Cannabinoids Screen NEG (NEG) Blood Type B NEGATIVE Antibody Screen NEGATIVE Blood Bank Comment Blood Gas Puncture Site RT RADIAL Blood Gas Patient Temperature 98.6 Blood Gas HCO3 25 mmol/L (22-26) Blood Gas Base Excess -0.2 mmol/L (-2-2) Blood Gas Oxygen Saturation 98 % (90-100) Arterial Blood pH 7.35 (7.380-7.420) Arterial Blood Partial 46 mmHg (38-42) Pressure CO2 Arterial Blood Partial 178 mmHG Pressure O2 (61-120) Arterial Blood Oxygen Content 19.0 Vol % (12.0-20.0) Arterial Blood 0.6 % (0-4) Carboxyhemoglobin Arterial Blood Methemoglobin 0.8 % (0-2) Blood Gas Hemoglobin 13.6 G/DL (12.0-16.0) Oxygen Delivery Device VENTILATOR Blood Gas Ventilator Setting Blood Gas Inspired Oxygen 100 % Magnesium Level 1.5 MG/DL (1.5-2.5) Test 09/02/16 09/02/16 09/02/16 09/02/16 00:22 03:11 03:49 05:43 Blood Gas Puncture Site JOEL MALDONADO Blood Gas Patient Temperature 98.6 98.6 Blood Gas HCO3 21 mmol/L 20 mmol/L (22-26) (22-26) Blood Gas Base Excess -3.6 mmol/L -3.7 mmol/L (-2-2) (-2-2) Blood Gas Oxygen Saturation 97 % (90-100) 97 % (90-100) Arterial Blood pH 7.39 7.45 (7.380-7.420) (7.380-7.420) Arterial Blood Partial 35 mmHg (38-42) 29 mmHg (38-42) Pressure CO2 Arterial Blood Partial 133 mmHG 135 mmHg Pressure O2 (61-120) (61-120) Arterial Blood Oxygen Content 20.6 Vol % 19.9 Vol % (12.0-20.0) (12.0-20.0) Arterial Blood 0.7 % (0-4) 0.9 % (0-4) Carboxyhemoglobin Arterial Blood Methemoglobin 0.8 % (0-2) 1.1 % (0-2) Blood Gas Hemoglobin 15.0 G/DL 14.5 G/DL (12.0-16.0) (12.0-16.0) Oxygen Delivery Device VENTILATOR VENTILATOR Blood Gas Ventilator Setting SEE COMMENT SEE COMMENT Blood Gas Inspired Oxygen 40 % 30 % Nasal Screen MRSA (PCR) MRSA NOT DETECTED (NOT DETECT) Serum Osmolality 301 MOSM/KG (275-295) Test 09/02/16 09/02/16 09/02/16 09/03/16 06:00 11:25 17:40 00:50 White Blood Count 15.5 TH/MM3 (4.0-11.0) Red Blood Count 5.10 MIL/MM3 (4.50-5.90) Hemoglobin 14.1 GM/DL (13.0-17.0) Hematocrit 42.2 % (39.0-51.0) Mean Corpuscular Volume 82.7 FL (80.0-100.0) Mean Corpuscular Hemoglobin 27.7 PG (27.0-34.0) Mean Corpuscular Hemoglobin 33.4 % Concent (32.0-36.0) Red Cell Distribution Width 14.2 % (11.6-17.2) Platelet Count 215 TH/MM3 (150-450) Mean Platelet Volume 8.8 FL (7.0-11.0) Neutrophils (%) (Auto) 87.0 % (16.0-70.0) Lymphocytes (%) (Auto) 4.2 % (9.0-44.0) Monocytes (%) (Auto) 8.5 % (0.0-8.0) Eosinophils (%) (Auto) 0.1 % (0.0-4.0) Basophils (%) (Auto) 0.2 % (0.0-2.0) Neutrophils # (Auto) 13.5 TH/MM3 (1.8-7.7) Lymphocytes # (Auto) 0.7 TH/MM3 (1.0-4.8) Monocytes # (Auto) 1.3 TH/MM3 (0-0.9) Eosinophils # (Auto) 0.0 TH/MM3 (0-0.4) Basophils # (Auto) 0.0 TH/MM3 (0-0.2) CBC Comment DIFF FINAL Differential Comment Sodium Level 138 MEQ/L 140 MEQ/L 141 MEQ/L 141 MEQ/L (136-145) (136-145) (136-145) (136-145) Potassium Level 4.7 MEQ/L 3.9 MEQ/L (3.5-5.1) (3.5-5.1) Chloride Level 106 MEQ/L (98-107) Carbon Dioxide Level 22.5 MEQ/L (21.0-32.0) Anion Gap 10 MEQ/L (5-15) Blood Urea Nitrogen 17 MG/DL (7-18) Creatinine 1.39 MG/DL (0.60-1.30) Estimat Glomerular Filtration 69 ML/MIN (>89) Rate Random Glucose 134 MG/DL (74-106) Serum Osmolality 295 MOSM/KG 295 MOSM/KG 295 MOSM/KG 294 MOSM/KG (275-295) (275-295) (275-295) (275-295) Calcium Level 8.6 MG/DL (8.5-10.1) Phosphorus Level 0.6 MG/DL 2.9 MG/DL (2.5-4.9) (2.5-4.9) Magnesium Level 1.4 MG/DL 1.9 MG/DL (1.5-2.5) (1.5-2.5) Total Bilirubin 0.5 MG/DL (0.2-1.0) Aspartate Amino Transf 33 U/L (15-37) (AST/SGOT) Alanine Aminotransferase 46 U/L (12-78) (ALT/SGPT) Alkaline Phosphatase 56 U/L (45-117) Total Protein 7.2 GM/DL (6.4-8.2) Albumin 3.1 GM/DL (3.4-5.0) Test 09/03/16 09/03/16 09/03/16 09/03/16 05:50 08:30 11:56 19:12 Sodium Level 142 MEQ/L 141 MEQ/L 140 MEQ/L (136-145) (136-145) (136-145) Serum Osmolality 296 MOSM/KG 299 MOSM/KG (275-295) (275-295) Blood Gas Puncture Site ART LINE Blood Gas Patient Temperature 98.6 Blood Gas HCO3 22 mmol/L (22-26) Blood Gas Base Excess -1.4 mmol/L (-2-2) Blood Gas Oxygen Saturation 95 % (90-100) Arterial Blood pH 7.46 (7.380-7.420) Arterial Blood Partial 31 mmHg (38-42) Pressure CO2 Arterial Blood Partial 91 mmHg Pressure O2 (61-120) Arterial Blood Oxygen Content 17.8 Vol % (12.0-20.0) Arterial Blood 1.0 % (0-4) Carboxyhemoglobin Arterial Blood Methemoglobin 1.1 % (0-2) Blood Gas Hemoglobin 13.3 G/DL (12.0-16.0) Oxygen Delivery Device VENTILATOR Blood Gas Ventilator Setting [facility] Blood Gas Inspired Oxygen 30 % White Blood Count 16.1 TH/MM3 (4.0-11.0) Red Blood Count 4.84 MIL/MM3 (4.50-5.90) Hemoglobin 13.3 GM/DL (13.0-17.0) Hematocrit 40.5 % (39.0-51.0) Mean Corpuscular Volume 83.7 FL (80.0-100.0) Mean Corpuscular Hemoglobin 27.4 PG (27.0-34.0) Mean Corpuscular Hemoglobin 32.8 % Concent (32.0-36.0) Red Cell Distribution Width 14.6 % (11.6-17.2) Platelet Count 183 TH/MM3 (150-450) Mean Platelet Volume 8.3 FL (7.0-11.0) Potassium Level 3.9 MEQ/L (3.5-5.1) Chloride Level 110 MEQ/L (98-107) Carbon Dioxide Level 24.2 MEQ/L (21.0-32.0) Anion Gap 7 MEQ/L (5-15) Blood Urea Nitrogen 13 MG/DL (7-18) Creatinine 1.31 MG/DL (0.60-1.30) Estimat Glomerular Filtration 74 ML/MIN (>89) Rate Random Glucose 109 MG/DL (74-106) Calcium Level 8.4 MG/DL (8.5-10.1) Test 09/04/16 02:05 White Blood Count 14.4 TH/MM3 (4.0-11.0) Red Blood Count 4.50 MIL/MM3 (4.50-5.90) Hemoglobin 12.8 GM/DL (13.0-17.0) Hematocrit 37.2 % (39.0-51.0) Mean Corpuscular Volume 82.6 FL (80.0-100.0) Mean Corpuscular Hemoglobin 28.5 PG (27.0-34.0) Mean Corpuscular Hemoglobin 34.5 % Concent (32.0-36.0) Red Cell Distribution Width 14.8 % (11.6-17.2) Platelet Count 192 TH/MM3 (150-450) Mean Platelet Volume 8.5 FL (7.0-11.0) Sodium Level 142 MEQ/L (136-145) Potassium Level 4.1 MEQ/L (3.5-5.1) Chloride Level 108 MEQ/L (98-107) Carbon Dioxide Level 26.2 MEQ/L (21.0-32.0) Anion Gap 8 MEQ/L (5-15) Blood Urea Nitrogen 11 MG/DL (7-18) Creatinine 1.29 MG/DL (0.60-1.30) Estimat Glomerular Filtration 76 ML/MIN (>89) Rate Random Glucose 115 MG/DL (74-106) Calcium Level 8.3 MG/DL (8.5-10.1) (Della Gonzalez) Result Diagram: 09/04/1620409/04/16204 Microbiology Microbiology Date/Time Procedure Status Source Growth 09/01/16 20:10 Urine Culture - Final Complete Urine Catheterized Urine NO GROWTH IN 48 HOURS. 09/02/16 03:44 Aerobic Blood Culture - Preliminary Resulted Blood Peripheral NO GROWTH IN 2 DAYS 09/02/16 03:44 Anaerobic Blood Culture - Preliminary Resulted Blood Peripheral NO GROWTH IN 2 DAYS 09/02/16 03:49 Aerobic Blood Culture - Preliminary Resulted Blood Peripheral NO GROWTH IN 2 DAYS 09/02/16 03:49 Anaerobic Blood Culture - Preliminary Resulted Blood Peripheral NO GROWTH IN 2 DAYS 09/02/16 04:19 Gram Stain - Final Resulted Sputum Endotracheal 09/02/16 04:19 Sputum Culture - Preliminary Resulted Gram Negative [facility] Last [address] 09/04/16 0600 Signed Impressions: Service Date/Time: Sunday, September 04, 2016 05:01 - CONCLUSION: Right sided suboccipital craniotomy with decompression of the large intraparenchymal right cerebellar hematoma seen previously. Still several residual hemorrhage extending into the middle cerebellar peduncle and the right side of the brainstem unchanged. Ventriculostomy catheter in good position Keith Malave MD Procedures * 09/01/16 -Right suboccipital craniectomy with evacuation of cerebellar hemorrhage; right frontal bur hole ventriculostomy placement. . (Della Gonzalez) Assessment and Plan Disease Oriented Problem List: (1) Spontaneous intraparenchymal intracranial hemorrhage, acute (2) Acute respiratory failure (3) Malignant hypertension Symptom Scale: (1) Shortness of breath 0-10 Scale: Unable to quantify Comment: Secondary to acute respiratory failure. Patient remains intubated on mechanical ventilation. (2) Pain 0-10 Scale: Unable to quantify Comment: Secondary to recent surgical intervention, hospitalization/bedrest. (3) Vomiting 0-10 Scale: 0 Comment: Currently on Reglan. Pertinent Non-Medical Issues Psychosocial: . Has 2 children. Originally from [place]. Spiritual: Sabianism holly. Legal: No advance directives completed. Ethical issues impacting care: No advance directives completed. . Important Contacts /HCS Jaci Isabel ([phone]. . Prognosis Mr. Isabel is a 40-year-old male with no significant past medical history who presented on 09/01/16 with large right cerebellar hemisphere hemorrhage with extension into the isaac. He underwent right suboccipital craniectomy with evacuation of cerebellar hemorrhage; right frontal bur hole ventriculostomy placement. Patient at high risk for further complications, continue decline and . Poor prognosis for meaningful functional/neurological recovery. . Code Status: Full Code Plan * CODE STATUS: Full code. * HEALTHCARE DECISION-MAKER: Patient incapacitated secondary to clinical condition, unresponsive -intubated on mechanical ventilation. No advance directives completed. As per [place] law, patient's Jaci Isabel is proxy decision maker. She has accepted this role. * GOALS OF CARE: As per Jaci, continue with aggressive care to include full code, trach and peg if medically indicated/unable to wean off vent support. Goal is to allow time for clinical improvement. with a strong holly base, hoping for recovery. Reviewed with that patient remains in critical condition, high risk for further complications, continue decline and . Uncertain prognosis for a meaningful functional/neurological recovery at this time. * SYMPTOMS: = Shortness of breath: Multifactorial. Secondary to acute respiratory failure/acute cerebellar hemorrhage. Remains orally intubated on mechanical ventilation. FiO2 30%. = Pain: Secondary to recent surgical intervention, orally intubation, bedrest status. Fentanyl available as needed. = Vomiting: appears controlled. Patient on Reglan and bowel regimen. * Spiritual services following. Roofer Assistantosmani Pierce has met with Jaci for spiritual support. * Case discussed with bedside RN, Elizabeth. * Palliative care contact information has been provided to patient's . * Ongoing emotional support and active listening provided to patient's Jaci. * Palliative care will continue to follow-up as needed for further clarifications of goals of care, assist with communication and to provide ongoing emotional support throughout this hospitalization. . (Della Gonzalez) Time Spent Total Floor Time (mins): 40 (Total time to include review medical records, physical exam, goals of care conversation with patient's , case discussion with bedside RN Elizabeth and case discussion with chaplain Pierce.) >50% Counseling/Coord of Care: Yes (Della Gonzalez) Attestation To help prompt me to consider important information that might be impacting today's encounter and assessment, information from prior notes written by myself or my colleagues may have been "brought forward" into today's note. My signature on this note, however, is an attestation that I personally performed the exam, history, and/or decision-making noted today, and, unless otherwise indicated, the interactions with patient, family, and staff as well as the review of records all occurred today. I also attest that the listed assessment and stated plan reflect my best clinical judgment today based on the combination of historical information, prior notes, and today's exam/ interactions. When time spent is documented, it refers only to time spent today by the signer, or if indicated, combined time spent today by collaborating physician/nurse practitioner. (Della Gonzalez) Collaborating MD Comments . Chart reviewed. Case discussed with palliative care PAGE MAKEUP SYSTEM OPERATOR. Above PAGE MAKEUP SYSTEM OPERATOR note reviewed and I concur. . (Antonio Matias MD) Della Gonzalez September 04, 2016 12:29 Antonio Matias MD September 08, 2016 16:43
--- NOTE | 2016-09-04 14:41 | HHI.CCPN ---
Subjective Remarks/Hospital Course Hospital Course: 40-year-old male with reportedly no significant past medical history who was at work today and was taking out the garbage when he developed "the worse headache of his life". He was screaming in pain and EVAC was called. Upon EVAC arrival his GCS was 13 but rapidly deteriorated to GCS 3. He vomited. He was intubated on the scene without any drugs. CT brain demonstrated a large right cerebellar hemorrhage (4.9 x 5.7 cm) with effacement of the fourth ventricle. He has a very poor neurologic exam with absence of pupillary, corneal, gag, cough, oculocephalic reflexes. Not overbreathing vent but did not formally test apnea. Dr. Ovalles discussed with and she is requesting operative management. He is being taken for emergent CT angiogram and then to OR for evacuation by Dr. Ovalles. Subjective: 09/02: decompressive craniectomy overnight. per report, when he returned from the OR he apparently had a +gag. this morning remains encephalopathic. 06/06: vomiting on sedation vacation yesterday. cardene off. icp's controlled: 9 this AM. still poor neurologic exam. 09/04: on goal TF. no additional vomiting. following commands RUE, RLE. tracking. EVD at 15 cmH2O. ICP controlled. Objective Vital Signs Date Time Temp Pulse Resp B/P Pulse Ox O2 Delivery O2 Flow Rate FiO2 09/04/16 14:00 108 09/04/16 12:05 100 30 09/04/16 12:00 100.6 16 155/71 09/04/16 08:00 Mechanical Ventilator Intake and Output 09/03/16 09/03/16 09/04/16 08:00 16:00 00:00 Intake Total 1206 ml 1574 ml 1243 ml Output Total 943 ml 1457 ml 1354 ml Balance 263 ml 117 ml -111 ml Result Diagram: 09/04/16 0205 09/04/16 0205 Other Results Microbiology Date/Time Procedure Status Source Growth 09/01/16 20:10 Urine Culture - Final Complete Urine Catheterized Urine NO GROWTH IN 48 HOURS. Objective Remarks GENERAL: male patient who is orotracheally intubated. critically ill. SKIN: Warm and dry. HEAD: wrapped in bandage which is clean and dry. EYES: Pupils 1 mm nonreactive bilaterally. No scleral icterus. No injection or drainage. ENT: No nasal bleeding or discharge. Mucous membranes pink and moist. NECK: Trachea midline. No JVD. CARDIOVASCULAR: . normal rate, regular rhythm. sinus by tele. RESPIRATORY: PRVC, fio2 40%. equal chest rise. GASTROINTESTINAL: Abdomen soft, non-tender, nondistended. : Kumar in place MSK: No obvious deformity. No edema NEUROLOGICAL: Pupils 3mm, reactive. + cough. FC RUE, RLE. flaccid on left. A/P Assessment and Plan Assessment: 40yM with large posterior fossa IPH now s/p decompressive posterior fossa craniectomy 09/01. encephalopathy slowly improved today. still very poor prognosis given size and location of the bleed. goals are aggressive. palliative care consulted. very critically ill at this point. His neurologic exam is likely secondary to persistent cerebral edema in the posterior fossa, though we have been aggressive with this. NEURO: Acute cerebellar hemorrhage (ICH Score 4) CT brain 09/01/16 - 4.9 x 5.3 cm right cerebellar hemorrhage with effacement of the fourth ventricle. CTA 09/01/16 - No e/o vascular abnormality. s/p Suboccipital craniectomy, cerebellar hemorrhage evacuation, ventriculostomy by Dr. Ovalles 09/01/16 Ventric at + 15 cm H20 per NSG, ICP 9 Continue Keppra 500 mg IV every 12 3% NaCl @ 30 ml/hr with serial sodium and serum osm. Maintain normothermia with tylenol/cooling blanket prn temp >100.4. Target RASS -1, patient comfort and vent synchrony, RESP: Acute hypoxic and hypercarbic respiratory failure Aspiration Intubated at the scene by EVAC with no sedation End tidal CO2 monitoring. Target PaCO2 35-40. Duoneb q6 hours; Albuterol q2 hours prn wheezing no SBT today given cerebral edema and mental status. CV: Malignant Hypertension Labetalol 10 mg IV q4 hours prn SBP <150. Nicardipine to maintain systolic blood pressure less than 150 Obtain baseline EKG. GI: Vomiting- improving OG tube to low intermittent wall suction Zofran 4 mg IV q6 hours TF at goal. bowel regimen. FEN/RENAL: Renal insufficiency, unknown baseline creatinine Hypokalemia ICU electrolyte protocol Kumar in place due to critically ill patient in need of accurate I/O monitoring and at risk for urinary obstruction Monitor I/O and creatinine Monitor electrolytes and replace as indicated per ICU electively replacement protocol. ID: Received Perioperative cefazolin. sputum growing GNR. await speciation. Large amount of sputum production and e/o aspiration. Unasyn 3 gram IV q6 hours. will plan on de-escalating once speciated. HEME: Monitor CBC, post op CBC pending. Coags WNL. Patient was not on anticoagulant or antiplatelet therapy. ENDO: Acute stress hyperglycemia Monitor bedside glucose and initiate low-dose insulin sliding scale as indicated PROPH: SCDs and teds for DVT prophylaxis. Pharmacologic DVT prophylaxis is contraindicated due to acute cerebellar hemorrhage. Protonix 40 mg IV daily for stress ulcer prophylaxis. ACCESS: Left radial art line placed in OR 09/01, removed 09/03 for non- functioning. replace 09/04. Critical care time 31 minutes exclusive of separately billable procedures. Vasile Knight MD September 04, 2016 14:41
--- NOTE | 2016-09-04 21:22 | PD.PROCEDR ---
Procedure Note Procedure Procedure: Arterial Line Placement Right radial arterial line Diagnosis: Posterior fossa intracranial hemorrhage Indications: Need for beat to beat hemodynamic monitoring Consent: Emergent or medically necessary Description of the Procedure: The right wrist was prepped and draped sterilely. 1% lidocaine was used for local anesthesia. The pulse was located and a needle was advanced into the artery. A 20 gauge, 12 cm catheter was advanced into the artery using a modified Seldinger technique. The catheter was sutured to the skin and a sterile dressing was applied. The catheter was connected to a pressure transducer and an arterial waveform was noted. There were no immediate complications noted. There was minimal EBL. I personally performed the procedure. Vasile Knight MD September 04, 2016 21:22
[2016-09-05] VITALS (19 sets, daily range): BP systolic 122–158; BP diastolic 66–82; PULSE 108–123; RESP 16–17; TEMP 98.8–100.6; O2SAT 90–98
[2016-09-05 02:45] LABS: MEAN CORPUSCULAR HEMOGLOBIN 28.7 PG (27.0-34.0); MEAN CORPUSCULAR HGB CONC 34.6 % (32.0-36.0); PLATELET COUNT 204 TH/MM3 (150-450); RED BLOOD COUNT 4.33 MIL/MM3 (4.50-5.90); RED CELL DISTRIBUTION WIDTH 14.7 % (11.6-17.2); REVIEW FLAG FINAL; WHITE BLOOD COUNT 10.8 TH/MM3 (4.0-11.0)
[2016-09-05] MEDS: CHLORHEXIDINE GLUCONATE 2 % 1 PACK (2 CLOTHS) TOP SCH (03:03)
[2016-09-05 03:07] LABS: BICARBONATE 25.4 MEQ/L (21.0-32.0); POTASSIUM 4.1 MEQ/L (3.5-5.1)
[2016-09-05] MEDS: RESP: ALBUTEROL 2.5 MG/IPRATROPIUM 0.5 MG NEB (SCH) INH ×4 (03:17→20:58)
[2016-09-05] MEDS: INSULIN ASPART SUPPLEMENTAL SCALE SQ SCH ×4 (03:26→22:00)
[2016-09-05] MEDS: PROPOFOL 1000 MG/100 ML INJ 100 ML IV SCH ×3 (03:27→18:25)
[2016-09-05] MEDS: niCARdipine INJ 25 MG in SODIUM CHLOR 0.9% 250 ML INJ 250 ML IV SCH ×4 (03:27→15:36)
[2016-09-05] MEDS: AMPICILLIN-SULBACTAM INJ 3 GM in SODIUM CHLORIDE 0.9% INJ 100 ML IV SCH ×3 (06:04→16:58)
[2016-09-05] MEDS: METOCLOPRAMIDE HCL SYRUP 10 MG/10 ML UDC PO SCH ×4 (06:04→20:39)
[2016-09-05] MEDS: NS + KCL 20 MEQ INJ 1,000 ML IV SCH ×2 (08:17→20:12)
--- NOTE | 2016-09-05 08:26 | HHI.CCPN ---
Subjective Remarks/Hospital Course Hospital Course: 40-year-old male with reportedly no significant past medical history who was at work today and was taking out the garbage when he developed "the worse headache of his life". He was screaming in pain and [facility] was called. Upon EVAC arrival his GCS was 13 but rapidly deteriorated to GCS 3. He vomited. He was intubated on the scene without any drugs. CT brain demonstrated a large right cerebellar hemorrhage (4.9 x 5.7 cm) with effacement of the fourth ventricle. He has a very poor neurologic exam with absence of pupillary, corneal, gag, cough, oculocephalic reflexes. Not overbreathing vent but did not formally test apnea. Dr. Ovalles discussed with and she is requesting operative management. He is being taken for emergent CT angiogram and then to OR for evacuation by Dr. Ovalles. Subjective: 09/02: decompressive craniectomy overnight. per report, when he returned from the OR he apparently had a +gag. this morning remains encephalopathic. 06/06: vomiting on sedation vacation yesterday. cardene off. icp's controlled: 9 this AM. still poor neurologic exam. 09/04: on goal TF. no additional vomiting. following commands RUE, RLE. tracking. EVD at 15 cmH2O. ICP controlled. 09/05: still weakly following commands. ICP slightly elevated at 16-17 today. sedation vacation patient gets agitated, tachycardic, hypertensive. sputum growing pansensitive enterobacter. Objective Vital Signs Date Time Temp Pulse Resp B/P Pulse Ox O2 Delivery O2 Flow Rate FiO2 09/05/16 07:00 95 Mechanical Ventilator 30 09/05/16 06:00 116 09/05/16 04:00 99.0 16 127/71 Intake and Output 09/04/16 09/04/16 09/05/16 08:00 16:00 00:00 Intake Total 1262 ml 1855 ml 1901 ml Output Total 1056.0 ml 1820 ml 517 ml Balance 206.0 ml 35 ml 1384 ml Result Diagram: 09/05/16 0230 09/05/16 0230 Objective Remarks GENERAL: male patient who is orotracheally intubated. critically ill. SKIN: Warm and dry. HEAD: wrapped in bandage which is clean and dry. EYES: Pupils 1 mm nonreactive bilaterally. No scleral icterus. No injection or drainage. ENT: No nasal bleeding or discharge. Mucous membranes pink and moist. NECK: Trachea midline. No JVD. CARDIOVASCULAR: . normal rate, regular rhythm. sinus by tele. RESPIRATORY: PRVC, fio2 40%. equal chest rise. GASTROINTESTINAL: Abdomen soft, non-tender, nondistended. : Kumar in place MSK: No obvious deformity. No edema NEUROLOGICAL: Pupils 3mm, reactive. + cough. FC RUE, RLE. flaccid on left. A/P Assessment and Plan Assessment: 40yM with large posterior fossa IPH now s/p decompressive posterior fossa craniectomy 09/01. encephalopathy slowly improved today. still very poor prognosis given size and location of the bleed. goals are aggressive. palliative care consulted. very critically ill at this point. His neurologic exam is likely secondary to persistent cerebral edema in the posterior fossa, though we have been aggressive with this. some slight improvements in neuro exam. will continue to follow. ICP slightly higher today. NEURO: Acute cerebellar hemorrhage (ICH Score 4) CT brain 09/01/16 - 4.9 x 5.3 cm right cerebellar hemorrhage with effacement of the fourth ventricle. CTA 09/01/16 - No e/o vascular abnormality. s/p Suboccipital craniectomy, cerebellar hemorrhage evacuation, ventriculostomy by Dr. Ovalles 09/01/16 Ventric at + 15 cm H20 per NSG, ICP 9 Continue Keppra 500 mg IV every 12 3% NaCl @ 30 ml/hr with serial sodium and serum osm. Maintain normothermia with tylenol/cooling blanket prn temp >100.4. Target RASS -1, patient comfort and vent synchrony, RESP: Acute hypoxic and hypercarbic respiratory failure Aspiration Intubated at the scene by [facility]AC with no sedation End tidal CO2 monitoring. Target PaCO2 35-40. Duoneb q6 hours; Albuterol q2 hours prn wheezing no SBT today given cerebral edema and mental status. CV: Malignant Hypertension Labetalol 10 mg IV q4 hours prn SBP <150. Nicardipine to maintain systolic blood pressure less than 150 Obtain baseline EKG. GI: Vomiting- resolved. OG tube to low intermittent wall suction Zofran 4 mg IV q6 hours TF at goal. bowel regimen. FEN/RENAL: Renal insufficiency, unknown baseline creatinine Hypokalemia ICU electrolyte protocol Kumar in place due to critically ill patient in need of accurate I/O monitoring and at risk for urinary obstruction Monitor I/O and creatinine Monitor electrolytes and replace as indicated per ICU electively replacement protocol. ID: Received Perioperative cefazolin. sputum growing enterobacter. Large amount of sputum production and e/o aspiration. Unasyn 3 gram IV q6 hours. will continue out 7 day course (anticipated stop date 09/07) HEME: Monitor CBC, post op CBC pending. Coags WNL. Patient was not on anticoagulant or antiplatelet therapy. ENDO: Acute stress hyperglycemia Monitor bedside glucose and initiate low-dose insulin sliding scale as indicated PROPH: SCDs and teds for DVT prophylaxis. Pharmacologic DVT prophylaxis is contraindicated due to acute cerebellar hemorrhage. Protonix 40 mg IV daily for stress ulcer prophylaxis. ACCESS: right radial art line 09/04 Critical care time 32 minutes exclusive of separately billable procedures. Vasile Knight MD September 05, 2016 08:26
[2016-09-05] MEDS: CHLORHEXIDINE 0.12% (ORAL KIT) 15 ML CUP MT SCH ×2 (08:39→19:52)
[2016-09-05] MEDS: SODIUM CHLORIDE 0.9% FLUSH 10 ML FLUSH SCH ×2 (09:00→20:39)
[2016-09-05] MEDS: levETIRAcetam INJ 500 MG in SODIUM CHLORIDE 0.9% INJ 100 ML IV SCH ×2 (09:01→20:39)
[2016-09-05] MEDS: POLYETHYLENE GLYCOL 17 GM PKG PO SCH ×2 (09:01→20:39)
[2016-09-05] MEDS: oxyCODONE HCL ORAL CONC 20 MG/ML SYRINGE PO SCH ×4 (09:03→20:39)
[2016-09-05] MEDS: PANTOPRAZOLE SODIUM 40 MG VIAL IV SCH (09:05)
[2016-09-05] MEDS: DOCUSATE SODIUM 50 MG/SENNA 8.6 MG TAB PO SCH ×2 (09:08→20:39)
[2016-09-05] MEDS: BISACODYL 10 MG SUPP RECTAL SCH (09:09)
[2016-09-05] MEDS: LABETALOL HCL 100 MG/20 ML VIAL IV PUSH PRN ×3 (09:47→23:57)
[2016-09-05] MEDS: ACETAMINOPHEN 1000 MG/100 ML VIAL IV PRN ×2 (17:18→22:48)
--- NOTE | 2016-09-05 22:35 | HHI.NSPN ---
History Chief Complaint: ICH s/p suboccipital craniectomy for evacuation. Interval History 40-year-old male status post suboccipital craniotomy for cerebellar and pontine intracranial hemorrhage. External ventricular drain is in place. Exam Results Vital Signs Date Time Temp Pulse Resp B/P Pulse Ox O2 Delivery O2 Flow Rate FiO2 09/05/16 20:58 93 30 09/05/16 19:00 Mechanical Ventilator 09/05/16 18:00 110 09/05/16 16:00 99.9 16 146/76 09/05/16 10:35 6 Intake and Output 09/04/16 09/04/16 09/05/16 08:00 16:00 00:00 Intake Total 1262 ml 1855 ml 1901 ml Output Total 1056.0 ml 1820 ml 517 ml Balance 206.0 ml 35 ml 1384 ml Physical Examination Resp: Intubated. Positive IV sedation Heart: NSR no murmurs Abd: Soft positive bs Skin: Scalp incisions are dry and intact SCDs in place. Muscle: Purposeful right upper extremity with sedation decreased per nursing staff. Neuro: Presently sedated. Pupils 3 mm nonreactive. Lab, Micro, Other Results Laboratory Tests Test 09/05/16 09/05/16 09/05/16 02:30 12:30 17:35 White Blood Count 10.8 TH/MM3 Red Blood Count 4.33 MIL/MM3 Hemoglobin 12.4 GM/DL Hematocrit 36.0 % Mean Corpuscular Volume 83.0 FL Mean Corpuscular Hemoglobin 28.7 PG Mean Corpuscular Hemoglobin 34.6 % Concent Red Cell Distribution Width 14.7 % Platelet Count 204 TH/MM3 Mean Platelet Volume 8.5 FL Sodium Level 144 MEQ/L 144 MEQ/L 141 MEQ/L Potassium Level 4.1 MEQ/L Chloride Level 111 MEQ/L Carbon Dioxide Level 25.4 MEQ/L Anion Gap 8 MEQ/L Blood Urea Nitrogen 12 MG/DL Creatinine 1.18 MG/DL Estimat Glomerular Filtration 84 ML/MIN Rate Random Glucose 133 MG/DL Calcium Level 8.3 MG/DL Medical Decision Making Impression and Plan Impression: 1. Stable neurologic function following suboccipital craniectomy and evacuation hematoma. EVD remains in place Blood pressure well controlled Plan: Findings were discussed with the patient's family at bedside Continue to wean ventriculostomy as tolerated. Continue ventilatory support Hypertension control Renato Palma MD September 05, 2016 22:35
[2016-09-06] VITALS (18 sets, daily range): BP systolic 118–142; BP diastolic 66–80; PULSE 102–115; RESP 16; TEMP 98.4–100.4; O2SAT 95–100
[2016-09-06 00:19] LABS: BLOOD GAS HCO3 23 mmol/L (22-26); BLOOD GAS O2 HGB SATURATION 94 % (90-100); BLOOD GAS OXYGEN CONTENT 19.1 Vol % (12.0-20.0); BLOOD GAS PO2 87 mmHg (61-120); BLOOD GAS TOTAL HGB 14.4 G/DL (12.0-16.0); TEMP CORR TO 98.6
[2016-09-06 00:20] LABS: BLOOD GAS PCO2 36 mmHg (38-42); CRITICAL VALUE NO; OXYGEN DEVICE VENTILATOR
[2016-09-06 00:21] LABS: DRAW SITE ART LINE; FIO2 30 %; STAT NO; VENT SETTINGS PRVC/AC
[2016-09-06] MEDS: oxyCODONE HCL ORAL CONC 20 MG/ML SYRINGE PO SCH ×6 (00:38→20:14)
[2016-09-06] MEDS: AMPICILLIN-SULBACTAM INJ 3 GM in SODIUM CHLORIDE 0.9% INJ 100 ML IV SCH ×5 (00:39→23:51)
[2016-09-06] MEDS: RESP: ALBUTEROL 2.5 MG/IPRATROPIUM 0.5 MG NEB (SCH) INH ×4 (03:40→20:09)
[2016-09-06] MEDS: INSULIN ASPART SUPPLEMENTAL SCALE SQ SCH ×4 (04:00→21:22)
[2016-09-06] MEDS: LABETALOL HCL 100 MG/20 ML VIAL IV PUSH PRN (04:00)
[2016-09-06] MEDS: CHLORHEXIDINE GLUCONATE 2 % 1 PACK (2 CLOTHS) TOP SCH (04:00)
[2016-09-06 04:36] LABS: HEMATOCRIT 36.1 % (39.0-51.0); MEAN CELL VOLUME 83.8 FL (80.0-100.0); MEAN CORPUSCULAR HEMOGLOBIN 27.8 PG (27.0-34.0); MEAN CORPUSCULAR HGB CONC 33.2 % (32.0-36.0); PLATELET COUNT 200 TH/MM3 (150-450); RED CELL DISTRIBUTION WIDTH 14.7 % (11.6-17.2); REVIEW FLAG FINAL; WHITE BLOOD COUNT 16.5 TH/MM3 (4.0-11.0)
[2016-09-06 04:54] LABS: BICARBONATE 26.5 MEQ/L (21.0-32.0); POTASSIUM 4.4 MEQ/L (3.5-5.1)
[2016-09-06] MEDS: ACETAMINOPHEN 1000 MG/100 ML VIAL IV PRN (05:30)
[2016-09-06] MEDS: METOCLOPRAMIDE HCL SYRUP 10 MG/10 ML UDC PO SCH ×4 (06:30→20:14)
[2016-09-06] MEDS: 3% SALINE INJ 500 ML IV SCH ×2 (07:58→23:51)
[2016-09-06] MEDS: PROPOFOL 1000 MG/100 ML INJ 100 ML IV SCH ×3 (07:59→22:34)
[2016-09-06] MEDS: CHLORHEXIDINE 0.12% (ORAL KIT) 15 ML CUP MT SCH ×2 (08:00→19:55)
[2016-09-06] MEDS: NS + KCL 20 MEQ INJ 1,000 ML IV SCH ×2 (08:07→19:54)
[2016-09-06] MEDS: levETIRAcetam INJ 500 MG in SODIUM CHLORIDE 0.9% INJ 100 ML IV SCH ×2 (08:25→20:15)
[2016-09-06] MEDS: SODIUM CHLORIDE 0.9% FLUSH 10 ML FLUSH SCH ×2 (08:25→19:55)
[2016-09-06] MEDS: PANTOPRAZOLE SODIUM 40 MG VIAL IV SCH (08:25)
[2016-09-06] MEDS: BISACODYL 10 MG SUPP RECTAL SCH (09:00)
[2016-09-06] MEDS: POLYETHYLENE GLYCOL 17 GM PKG PO SCH ×2 (09:00→20:07)
[2016-09-06] MEDS: DOCUSATE SODIUM 50 MG/SENNA 8.6 MG TAB PO SCH ×2 (09:00→20:07)
[2016-09-06] MEDS ORDERED: METOPROLOL TARTRATE 5 MG/5 ML VIAL ONE (10:07)
--- NOTE | 2016-09-06 10:16 | HHI.CCPN ---
Subjective Remarks/Hospital Course Hospital Course: 40-year-old male with reportedly no significant past medical history who was at work today and was taking out the garbage when he developed "the worse headache of his life". He was screaming in pain and [facility] was called. Upon [facility]AC arrival his GCS was 13 but rapidly deteriorated to GCS 3. He vomited. He was intubated on the scene without any drugs. CT brain demonstrated a large right cerebellar hemorrhage (4.9 x 5.7 cm) with effacement of the fourth ventricle. He has a very poor neurologic exam with absence of pupillary, corneal, gag, cough, oculocephalic reflexes. Not overbreathing vent but did not formally test apnea. Dr. Ovalles discussed with and she is requesting operative management. He is being taken for emergent CT angiogram and then to OR for evacuation by Dr. Ovalles. Subjective: 09/02: decompressive craniectomy overnight. per report, when he returned from the OR he apparently had a +gag. this morning remains encephalopathic. 06/06: vomiting on sedation vacation yesterday. cardene off. icp's controlled: 9 this AM. still poor neurologic exam. 09/04: on goal TF. no additional vomiting. following commands RUE, RLE. tracking. EVD at 15 cmH2O. ICP controlled. 09/05: still weakly following commands. ICP slightly elevated at 16-17 today. sedation vacation patient gets agitated, tachycardic, hypertensive. sputum growing pansensitive enterobacter. 09/06: still weakly following commands. ICP high overnight for ~30 minutes, but then improved. EVD challenged to 20 cmH2O today. still tachycardic and hypertensive. Objective Vital Signs Date Time Temp Pulse Resp B/P Pulse Ox O2 Delivery O2 Flow Rate FiO2 09/06/16 07:51 96 30 09/06/16 06:00 115 09/06/16 04:00 100.0 16 142/80 09/05/16 19:00 Mechanical Ventilator 09/05/16 10:35 6 Intake and Output 09/05/16 09/05/16 09/06/16 08:00 16:00 00:00 Intake Total 1714 ml 2175 ml 2002 ml Output Total 785.0 ml 1443 ml 1019 ml Balance 929.0 ml 732 ml 983 ml Result Diagram: 09/06/16 0400 09/06/16 0400 Other Results Laboratory Tests Test 09/06/16 00:10 Blood Gas Puncture Site ART LINE Blood Gas Patient Temperature 98.6 Blood Gas HCO3 23 mmol/L (22-26) Blood Gas Base Excess -1.0 mmol/L (-2-2) Blood Gas Oxygen Saturation 94 % (90-100) Arterial Blood pH 7.42 (7.380-7.420) Arterial Blood Partial 36 mmHg (38-42) Pressure CO2 Arterial Blood Partial 87 mmHg Pressure O2 (61-120) Arterial Blood Oxygen Content 19.1 Vol % (12.0-20.0) Arterial Blood 1.0 % (0-4) Carboxyhemoglobin Arterial Blood Methemoglobin 1.0 % (0-2) Blood Gas Hemoglobin 14.4 G/DL (12.0-16.0) Oxygen Delivery Device VENTILATOR Blood Gas Ventilator Setting PRVC/AC Blood Gas Inspired Oxygen 30 % Objective Remarks GENERAL: male patient who is orotracheally intubated. critically ill. SKIN: Warm and dry. HEAD: wrapped in bandage which is clean and dry. EYES: Pupils 1 mm nonreactive bilaterally. No scleral icterus. No injection or drainage. ENT: No nasal bleeding or discharge. Mucous membranes pink and moist. NECK: Trachea midline. No JVD. CARDIOVASCULAR: . normal rate, regular rhythm. sinus by tele. RESPIRATORY: PRVC, fio2 40%. equal chest rise. GASTROINTESTINAL: Abdomen soft, non-tender, nondistended. : Kumar in place MSK: No obvious deformity. No edema NEUROLOGICAL: Pupils 3mm, reactive. + cough. FC RUE, RLE. flaccid on left. A/P Assessment and Plan Assessment: 40yM with large posterior fossa IPH now s/p decompressive posterior fossa craniectomy 09/01. encephalopathy slowly improved today. still very poor prognosis given size and location of the bleed. goals are aggressive. palliative care consulted. very critically ill at this point. His neurologic exam is likely secondary to persistent cerebral edema in the posterior fossa, though we have been aggressive with this. neuro exam stable. Hypertension persists, and is difficult to control despite multiple anti-hypertensives. ICP still 14-17 today. NEURO: Acute cerebellar hemorrhage (ICH Score 4) CT brain 09/01/16 - 4.9 x 5.3 cm right cerebellar hemorrhage with effacement of the fourth ventricle. CTA 09/01/16 - No e/o vascular abnormality. s/p Suboccipital craniectomy, cerebellar hemorrhage evacuation, ventriculostomy by Dr. Ovalles 09/01/16 Ventric at + 20 cm H20 per NSG, ICP 14 Continue Keppra 500 mg IV every 12 3% NaCl @ 30 ml/hr with serial sodium and serum osm. Maintain normothermia with tylenol/cooling blanket prn temp >100.4. Target RASS -1, patient comfort and vent synchrony, frequent neuro checks RESP: Acute hypoxic and hypercarbic respiratory failure Aspiration Intubated at the scene by EVAC with no sedation End tidal CO2 monitoring. Target PaCO2 35-40. Duoneb q6 hours; Albuterol q2 hours prn wheezing no SBT today given cerebral edema and mental status. CV: Malignant Hypertension Sinus tachycardia Labetalol and hydralazine prn SBP <150. Nicardipine to maintain systolic blood pressure less than 150 will try lopressor 5mg iv x 1 to see if improving his tachycardia can improve his hypertension and hemodynamics. if this works, will add a prn metoprolol order. GI: Vomiting- resolved. Zofran 4 mg IV q6 hours TF at goal. bowel regimen. FEN/RENAL: Renal insufficiency, unknown baseline creatinine Hypokalemia ICU electrolyte protocol Kumar in place due to critically ill patient in need of accurate I/O monitoring and at risk for urinary obstruction Monitor I/O and creatinine Monitor electrolytes and replace as indicated per ICU electively replacement protocol. ID: sputum growing enterobacter. Large amount of sputum production and e/o aspiration. Unasyn 3 gram IV q6 hours. will continue out 7 day course (anticipated stop date 09/07) HEME: Monitor CBC, post op CBC pending. Coags WNL. Patient was not on anticoagulant or antiplatelet therapy. ENDO: Acute stress hyperglycemia Monitor bedside glucose and initiate low-dose insulin sliding scale as indicated PROPH: SCDs and teds for DVT prophylaxis. Pharmacologic DVT prophylaxis is contraindicated due to acute cerebellar hemorrhage. Protonix 40 mg IV daily for stress ulcer prophylaxis. ACCESS: right radial art line 09/04, left SC TLC 09/04. still requires both. Dispo: remain in the ICU. very critically ill. Critical care time 44 minutes exclusive of separately billable procedures. Vasile Knight MD September 06, 2016 10:16
[2016-09-06] MEDS: METOPROLOL TARTRATE 5 MG/5 ML VIAL IV PUSH PRN (10:37)
--- NOTE | 2016-09-06 16:36 | HHI.NSPN ---
History Chief Complaint: ICH s/p suboccipital craniectomy for evacuation. Interval History 40-year-old male status post suboccipital craniotomy for cerebellar and pontine intracranial hemorrhage. External ventricular drain is in place. Exam Results Vital Signs Date Time Temp Pulse Resp B/P Pulse Ox O2 Delivery O2 Flow Rate FiO2 09/06/16 12:40 98 30 09/06/16 12:00 106 09/06/16 12:00 99.1 16 140/77 09/06/16 07:00 Mechanical Ventilator 09/05/16 10:35 6 Intake and Output 09/05/16 09/05/16 09/06/16 08:00 16:00 00:00 Intake Total 1714 ml 2175 ml 2002 ml Output Total 785.0 ml 1443 ml 1019 ml Balance 929.0 ml 732 ml 983 ml Physical Examination Resp: Intubated. Positive IV sedation Heart: NSR no murmurs Abd: Soft positive bs Skin: Scalp incisions are dry and intact SCDs in place. Muscle: Purposeful right upper extremity with sedation decreased per nursing staff. Neuro: Presently sedated. Pupils 3 mm nonreactive. EVD in place draining well at 20 cm water pressure Lab, Micro, Other Results Laboratory Tests Test 09/05/16 09/06/16 09/06/16 09/06/16 17:35 00:10 00:15 04:00 Sodium Level 141 MEQ/L 143 MEQ/L 142 MEQ/L Blood Gas Puncture Site ART LINE Blood Gas Patient Temperature 98.6 Blood Gas HCO3 23 mmol/L Blood Gas Base Excess -1.0 mmol/L Blood Gas Oxygen Saturation 94 % Arterial Blood pH 7.42 Arterial Blood Partial 36 mmHg Pressure CO2 Arterial Blood Partial 87 mmHg Pressure O2 Arterial Blood Oxygen Content 19.1 Vol % Arterial Blood 1.0 % Carboxyhemoglobin Arterial Blood Methemoglobin 1.0 % Blood Gas Hemoglobin 14.4 G/DL Oxygen Delivery Device VENTILATOR Blood Gas Ventilator Setting PRVC/AC Blood Gas Inspired Oxygen 30 % White Blood Count 16.5 TH/MM3 Red Blood Count 4.30 MIL/MM3 Hemoglobin 12.0 GM/DL Hematocrit 36.1 % Mean Corpuscular Volume 83.8 FL Mean Corpuscular Hemoglobin 27.8 PG Mean Corpuscular Hemoglobin 33.2 % Concent Red Cell Distribution Width 14.7 % Platelet Count 200 TH/MM3 Mean Platelet Volume 8.5 FL Potassium Level 4.4 MEQ/L Chloride Level 108 MEQ/L Carbon Dioxide Level 26.5 MEQ/L Anion Gap 8 MEQ/L Blood Urea Nitrogen 13 MG/DL Creatinine 1.21 MG/DL Estimat Glomerular Filtration 81 ML/MIN Rate Random Glucose 134 MG/DL Calcium Level 8.2 MG/DL Medical Decision Making Impression and Plan Impression: 1. Stable neurologic function following suboccipital craniectomy and evacuation hematoma. EVD remains in place-now at 20 cm water pressure Blood pressure well controlled Plan: Continue to wean ventriculostomy as tolerated. Ventriculostomy output greater than 200 cc for the past 24 hours. We will continue the reservoir at 20 cm water pressure for now. Continue ventilatory support Hypertension control Renato Palma MD September 06, 2016 16:36
[2016-09-07] VITALS (19 sets, daily range): BP systolic 127–155; BP diastolic 67–85; PULSE 98–128; RESP 16–27; TEMP 97.9–101.5; O2SAT 95–100
[2016-09-07] MEDS: PROPOFOL 1000 MG/100 ML INJ 100 ML IV SCH ×5 (00:40→16:23)
[2016-09-07] MEDS: oxyCODONE HCL ORAL CONC 20 MG/ML SYRINGE PO SCH ×6 (01:39→20:14)
[2016-09-07] MEDS: RESP: ALBUTEROL 2.5 MG/IPRATROPIUM 0.5 MG NEB (SCH) INH ×4 (02:55→20:39)
[2016-09-07 03:47] LABS: HEMATOCRIT 34.5 % (39.0-51.0); MEAN CORPUSCULAR HEMOGLOBIN 27.6 PG (27.0-34.0); MEAN CORPUSCULAR HGB CONC 32.9 % (32.0-36.0); PLATELET COUNT 207 TH/MM3 (150-450); RED BLOOD COUNT 4.11 MIL/MM3 (4.50-5.90); REVIEW FLAG FINAL; WHITE BLOOD COUNT 16.1 TH/MM3 (4.0-11.0)
[2016-09-07] MEDS: CHLORHEXIDINE GLUCONATE 2 % 1 PACK (2 CLOTHS) TOP SCH (03:48)
[2016-09-07 04:13] LABS: BICARBONATE 25.5 MEQ/L (21.0-32.0); POTASSIUM 4.1 MEQ/L (3.5-5.1)
[2016-09-07] MEDS: INSULIN ASPART SUPPLEMENTAL SCALE SQ SCH ×4 (04:23→22:00)
[2016-09-07] MEDS: AMPICILLIN-SULBACTAM INJ 3 GM in SODIUM CHLORIDE 0.9% INJ 100 ML IV SCH ×3 (06:00→16:57)
[2016-09-07] MEDS: METOCLOPRAMIDE HCL SYRUP 10 MG/10 ML UDC PO SCH ×4 (06:51→20:13)
--- NOTE | 2016-09-07 07:08 | RADRPT ---
EXAM DATE/TIME: 09/07/2016 06:05 [facility] COMPARISON: CT BRAIN W/O CONTRAST, September 04, 2016, 5:01. INDICATIONS : Interval change in edema. RADIATION DOSE: 52.13 CTDIvol (mGy) MEDICAL HISTORY : None SURGICAL HISTORY : None. ENCOUNTER: Subsequent ACUITY: 4 - 6 days PAIN SCALE: Non-responsive LOCATION: cranial TECHNIQUE: Multiple contiguous axial images were obtained of the head. Using automated exposure control and adj ustment of the mA and/or kV according to patient size, radiation dose was kept as low as reasonably a chievable to obtain optimal diagnostic quality images. FINDINGS: Right frontal ventriculostomy catheter is stable. Postoperative changes in the right cerebellum and b rainstem are stable. No new acute findings are identified. Fluid again noted in the facial sinuses. CONCLUSION: Stable brain appearance. Al Hernandez MD on September 07, 2016 at 7:05 Board Certified Radiologist. This report was verified electronically.
--- NOTE | 2016-09-07 07:51 | HHI.CCPN ---
Subjective Remarks/Hospital Course Hospital Course: 40-year-old male with reportedly no significant past medical history who was at work today and was taking out the garbage when he developed "the worse headache of his life". He was screaming in pain and [facility] was called. Upon [facility] arrival his GCS was 13 but rapidly deteriorated to GCS 3. He vomited. He was intubated on the scene without any drugs. CT brain demonstrated a large right cerebellar hemorrhage (4.9 x 5.7 cm) with effacement of the fourth ventricle. He has a very poor neurologic exam with absence of pupillary, corneal, gag, cough, oculocephalic reflexes. Not overbreathing vent but did not formally test apnea. Dr. Ovalles discussed with and she is requesting operative management. He is being taken for emergent CT angiogram and then to OR for evacuation by Dr. Ovalles. Subjective: 09/02: decompressive craniectomy overnight. per report, when he returned from the OR he apparently had a +gag. this morning remains encephalopathic. 06/06: vomiting on sedation vacation yesterday. cardene off. icp's controlled: 9 this AM. still poor neurologic exam. 09/04: on goal TF. no additional vomiting. following commands RUE, RLE. tracking. EVD at 15 cmH2O. ICP controlled. 09/05: still weakly following commands. ICP slightly elevated at 16-17 today. sedation vacation patient gets agitated, tachycardic, hypertensive. sputum growing pansensitive enterobacter. 09/06: still weakly following commands. ICP high overnight for ~30 minutes, but then improved. EVD challenged to 20 cmH2O today. still tachycardic and hypertensive. 09/07: still follows. ICP better controlled. EVD at [address] stable. Objective Vital Signs Date Time Temp Pulse Resp B/P Pulse Ox O2 Delivery O2 Flow Rate FiO2 09/07/16 06:00 108 09/07/16 05:50 100 100 09/07/16 04:00 98.2 16 145/75 09/06/16 19:00 Mechanical Ventilator 09/05/16 10:35 6 Intake and Output 09/06/16 09/06/16 09/07/16 08:00 16:00 00:00 Intake Total 1357 ml 1265 ml 1696 ml Output Total 720.0 ml 1025 ml 885 ml Balance 637.0 ml 240 ml 811 ml Result Diagram: 09/07/1633409/07/16334 Objective Remarks GENERAL: male patient who is orotracheally intubated. critically ill. SKIN: Warm and dry. HEAD: wrapped in bandage which is clean and dry. EYES: Pupils 1 mm nonreactive bilaterally. No scleral icterus. No injection or drainage. ENT: No nasal bleeding or discharge. Mucous membranes pink and moist. NECK: Trachea midline. No JVD. CARDIOVASCULAR: . normal rate, regular rhythm. sinus by tele. RESPIRATORY: PRVC, fio2 40%. equal chest rise. GASTROINTESTINAL: Abdomen soft, non-tender, nondistended. : Kumar in place MSK: No obvious deformity. No edema NEUROLOGICAL: Pupils 3mm, reactive. + cough. FC RUE, RLE. flaccid on left. A/P Assessment and Plan Assessment: 40yM with large posterior fossa IPH now s/p decompressive posterior fossa craniectomy 09/01. encephalopathy slowly improving. still very poor prognosis given size and location of the bleed. goals are aggressive. palliative care consulted. I do not think he will be able to protect his airway. we will attempt sedation vacation and SBT, but if he fails, will plan to pursue tracheostomy. neuro exam stable. Head CT stable. Hypertension persists, and is difficult to control despite multiple anti-hypertensives. ICP somewhat improved. NEURO: Acute cerebellar hemorrhage (ICH Score 4) CT brain 09/01/16 - 4.9 x 5.3 cm right cerebellar hemorrhage with effacement of the fourth ventricle. CTA 09/01/16 - No e/o vascular abnormality. s/p Suboccipital craniectomy, cerebellar hemorrhage evacuation, ventriculostomy by Dr. Ovalles 09/01/16 Ventric at + 20 cm H20 per NSG Continue Keppra 500 mg IV every 12 d/c 3%. Maintain normothermia with tylenol/cooling blanket prn temp >100.4. Target RASS -1, patient comfort and vent synchrony, frequent neuro checks RESP: Acute hypoxic and hypercarbic respiratory failure Aspiration Intubated at the scene by [facility] with no sedation End tidal CO2 monitoring. Target PaCO2 35-40. Duoneb q6 hours; Albuterol q2 hours prn wheezing start SBT today. CV: Malignant Hypertension Sinus tachycardia Labetalol and hydralazine prn SBP <150. Nicardipine to maintain systolic blood pressure less than 150 lopressor 5mg iv q4h prn for HR > 90. GI: Vomiting- resolved. Zofran 4 mg IV q6 hours TF at goal. bowel regimen. FEN/RENAL: Renal insufficiency, unknown baseline creatinine Hypokalemia ICU electrolyte protocol Kumar in place due to critically ill patient in need of accurate I/O monitoring and at risk for urinary obstruction Monitor I/O and creatinine Monitor electrolytes and replace as indicated per ICU electively replacement protocol. ID: sputum growing enterobacter. Large amount of sputum production and e/o aspiration. Unasyn 3 gram IV q6 hours. will continue out 7 day course (anticipated stop date 09/07, today) resend blood cultures today, u/a, sputum. still plan on d/c abx today, but if he spikes a fever, will broaden him to empiric coverage. HEME: Monitor CBC, post op CBC pending. Coags WNL. Patient was not on anticoagulant or antiplatelet therapy. ENDO: Acute stress hyperglycemia Monitor bedside glucose and initiate low-dose insulin sliding scale as indicated PROPH: SCDs and teds for DVT prophylaxis. Pharmacologic DVT prophylaxis is contraindicated due to acute cerebellar hemorrhage. Protonix 40 mg IV daily for stress ulcer prophylaxis. ACCESS: right radial art line 09/04, left SC TLC 09/04. still requires both. Dispo: remain in the ICU. very critically ill. Critical care time 31 minutes exclusive of separately billable procedures. Vasile Knight MD September 07, 2016 07:51
[2016-09-07] MEDS: NS + KCL 20 MEQ INJ 1,000 ML IV SCH ×2 (07:57→19:52)
[2016-09-07] MEDS: CHLORHEXIDINE 0.12% (ORAL KIT) 15 ML CUP MT SCH ×2 (08:00→19:56)
[2016-09-07] MEDS: niCARdipine INJ 25 MG in SODIUM CHLOR 0.9% 250 ML INJ 250 ML IV SCH ×2 (08:47→11:07)
[2016-09-07] MEDS: LABETALOL HCL 100 MG/20 ML VIAL IV PUSH PRN (08:52)
[2016-09-07] MEDS: DOCUSATE SODIUM 50 MG/SENNA 8.6 MG TAB PO SCH ×2 (08:53→20:13)
[2016-09-07] MEDS: levETIRAcetam INJ 500 MG in SODIUM CHLORIDE 0.9% INJ 100 ML IV SCH ×2 (08:53→20:13)
[2016-09-07] MEDS: POLYETHYLENE GLYCOL 17 GM PKG PO SCH ×2 (08:53→20:13)
[2016-09-07] MEDS: PANTOPRAZOLE SODIUM 40 MG VIAL IV SCH (08:53)
[2016-09-07] MEDS: BISACODYL 10 MG SUPP RECTAL SCH (08:54)
[2016-09-07] MEDS: SODIUM CHLORIDE 0.9% FLUSH 10 ML FLUSH SCH ×2 (08:54→20:00)
--- NOTE | 2016-09-07 09:11 | HHI.NSPN ---
(Edgar Wallace) History Chief Complaint: ICH s/p suboccipital craniectomy for evacuation. (Edgar Wallace) Interval History 40-year-old gentleman postop day #1 status post right suboccipital craniectomy with cerebellar hemorrhage evacuation and ventriculostomy placement. His ICPs have been normal postoperatively. When sedation was held he vomited and was noted to have some eye opening and right-sided movements per the nursing staff. 09/03/16: Pt sedated on Diprivan. Decreased by RN and pt reported tracked to right side. at bedside states he had some spontaneous movement in RUE and RLE. Pts bp increases and requires sedation and anti hypertensive meds. 09/04/16: Pt sedated on Diprivan. When sedation decreased by RN patient opens both eyes and follow commands on the right side. He has left hemiplegia. Patient intubated and sedated. 09/07/16: Pt on sedation vacation currently this morning. He opens both eyes. Pupils 4mm bilaterally reactive bilaterally. Follows simple commands right side , has delayed response. Ventriculostomy drain in place at 20 cmH20, ICP14. Follow up CT head reviewed stable. (Edgar Wallace) System Review Comments Not able to obtain given clinical condition. (Edgar Wallace) Exam Results Vital Signs Date Time Temp Pulse Resp B/P Pulse Ox O2 Delivery O2 Flow Rate FiO2 09/07/16 08:23 30 09/07/16 08:23 96 09/07/16 06:00 108 09/07/16 04:00 98.2 16 145/75 09/06/16 19:00 Mechanical Ventilator 09/05/16 10:35 6 Intake and Output 09/06/16 09/06/16 09/07/16 08:00 16:00 00:00 Intake Total 1357 ml 1265 ml 1696 ml Output Total 720.0 ml 1025 ml 885 ml Balance 637.0 ml 240 ml 811 ml (Edgar Wallace) Physical Examination Resp: Intubated. Pressure controlled. FiO2 30%. Rate 16. PEEP 5. Heart: NSR no murmurs Abd: Soft positive bs Skin: Scalp incisions are dry and intact SCDs in place. 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 Left side no movement. Neuro: Sedated on Diprivan but held. Pupils 4 mm reactive. EVD in place draining mild output at 20 cm water pressure. ICP 14. (Edgar Wallace) Lab, Micro, Other Results Last Impressions Head CT 09/07/16 0600 Signed Impressions: Service Date/Time: Wednesday, September 07, 2016 06:05 - CONCLUSION: Stable brain appearance. Al Hernandez MD Chest X-Ray 09/02/16 0000 Signed Impressions: Service Date/Time: Friday, September 02, 2016 02:06 - CONCLUSION: Improvement in pulmonary edema. Erika Bob MD Neck CTA 09/01/162019 Signed Impressions: Service Date/Time: Thursday, September 01, 2016 20:55 - CONCLUSION: Unremarkable exam. The carotid arteries are intact. Ag Saxena MD Head CTA 09/01/162019 Signed Impressions: Service Date/Time: Thursday, September 01, 2016 20:55 - CONCLUSION: The etiology of the patient's right cerebellar h hemorrhage is not identified and there appears to be some infiltrates and possible pleural effusions in the upper lungs that are visualized. Erika Bob MD Laboratory Tests Test 09/07/16 03:35 White Blood Count 16.1 TH/MM3 Red Blood Count 4.11 MIL/MM3 Hemoglobin 11.4 GM/DL Hematocrit 34.5 % Mean Corpuscular Volume 84.0 FL Mean Corpuscular Hemoglobin 27.6 PG Mean Corpuscular Hemoglobin 32.9 % Concent Red Cell Distribution Width 15.0 % Platelet Count 207 TH/MM3 Mean Platelet Volume 8.3 FL Sodium Level 141 MEQ/L Potassium Level 4.1 MEQ/L Chloride Level 106 MEQ/L Carbon Dioxide Level 25.5 MEQ/L Anion Gap 10 MEQ/L Blood Urea Nitrogen 13 MG/DL Creatinine 1.19 MG/DL Estimat Glomerular Filtration 83 ML/MIN Rate Random Glucose 178 MG/DL Calcium Level 8.6 MG/DL 5/28/17 5/28/17 5/29/17 15:00 23:00 07:00 Intake Total 1265 ml 1696 ml 1473 ml Output Total 1025 ml 885 ml 1412 ml Balance 240 ml 811 ml 61 ml Intake IV Total 856 ml 1188 ml 999 ml Tube Feeding 409 ml 448 ml 374 ml Other 60 ml 100 ml Output Urine Total 1000 ml 850 ml 1400 ml Tube Feeding Residual Discard 0 ml 0 ml Drainage Total 25 ml 35 ml 12 ml # Bowel Movements 2 0 0 (Edgar Wallace) Medical Decision Making Impression and Plan A: 40 y/o M with Large right cerebellar hemisphere spontaneous hemorrhage likely hypertensive with no underlying vascular abnormality noted. He is status post suboccipital craniectomy with intracranial hemorrhage evacuation and ventriculostomy placement. His ICPs have been normal at 14 even with challenging of ventric. P: Continue with blood pressure control Continue with neuro checks Continue with critical care. Discussed with at bedside. (Edgar Wallace) Attending Statement The exam, history, and the medical decision-making described in the above note were completed with the assistance of the mid-level provider. I reviewed and agree with the findings presented. I attest that I had a [id number] encounter with the patient on the same day, and personally performed and documented my assessment and findings in the medical record. Opens eyes and intermittently follows commands with the right side with left hemiplegia. ICPs normal with ventriculostomy a [address] of the head this morning stable no hydrocephalus. We'll clamp ventriculostomy once the output decreases. Updated at bedside. (Gutierrez Ovalles MD) Edgar Wallace September 07, 2016 09:11 Gutierrez Ovalles MD September 07, 2016 10:24
[2016-09-07 11:11] LABS: BLOOD, URINE NEG (NEG); GLUCOSE,URINE NEG (NEG); KETONE, URINE NEG (NEG); MUCUS URINE FEW /lpf (OCC); NITRITE,URINE NEG (NEG); PH, URINE 6.5 (5.0-8.5); SQUAMOUS EPITHELIAL CELL URINE <1 /hpf (0-5); URINE COLOR YELLOW (YELLW/STRAW)
[2016-09-07 11:16] LABS: COMMENT (UR) CATH-CULT NOT IND; CULTURE IF INDICATED CATH CULTURE NOT IND
[2016-09-07] MEDS: ACETAMINOPHEN 1000 MG/100 ML VIAL IV PRN ×2 (11:42→17:03)
--- NOTE | 2016-09-07 16:50 | HHI.HCPN ---
Reason for visit a. To assist with evaluation and management of symptoms including: Shortness of breath and debility. b. To assist medical decision maker(s) with: better understanding of current medical conditions; weighing benefits/burdens of medical treatment options; making medical treatment decisions. . (Della Gonzalez) Subjective/Interval History Palliative care f/u for emotional support and for clarifications of goals of care. Mr. Isabel is a 40-year-old male with no significant past medical history who presented to the ED via EMS on 09/01/16 with large acute high density hemorrhage in the right cerebellar hemisphere with extension into the isaac, 5.3cm x 4.9cm in size. Patient status post decompressive craniectomy. Patient seen in ICU. Patient sedated, intubated on mechanical ventilation. Unresponsive to verbal or tactile stimuli during my visit. As per bedside nurse , patient of sedation earlier today, he was following some simple commands and right side, persistent left-sided hemiplegia. SBT today, patient tolerated to one half hours on CPAP. SBT stopped secondary to hypertension and restlessness. Patient remains on 30% FiO2, febrile with Max temp 101.5. SBP the 140s to 150. Laboratory today revealing WBC 16.1, Hgb 11.4, platelet count 207. Sodium 141, potassium 4.1, BUN/creatinine 13/1.19. Repeat head CT showing stable brain appearance. Ventriculostomy drain in place. Spoke with patient's at bedside. Reviewed events over the weekend and head CT results. Reviewed SBT today with patient tolerating 2 1/2 hours on CPAP. Reviewed early tracheostomy and PEG placement if patient is unable to tolerate weaning off vent support. verbalized wishing to continue with aggressive care, however, she has concerns about trach placement and what can this do to patient's voice. 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 Reviewed with that in the event that patient is unable to wean off vent support, tracheostomy would be a medical necessity and not an elective procedure given their wishes for continuation of aggressive management. Encouraged to further discuss with additional family members. requesting assistance from palliative care with letter indicating that patient is currently admitted at this facility in critical condition. Daughter Myriam Isabel is currently in [place] and is requesting this letter in order to apply for visa. Will provide letter as requested. Case discussed with Dr. Knight and bedside RN. . Family/friend interactions See interval note. . (Della Gonzalez) Advance Directives Living Will: Never completed Health Care Surrogate: Never completed Durable Power of Administrative Aide: Never completed (Della Gonzalez) Advance Directive Specifics Health Care Surrogate(s): No living will or healthcare surrogate designation completed. As per [place] law, patient's Jaci Isabel is healthcare proxy. . Documented care wishes: No living will completed. . Significant change in goals: Full code. Continue with current aggressive management. . (Della Gonzalez) Objective Vital Signs Date Time Temp Pulse Resp B/P Pulse Ox O2 Delivery O2 Flow Rate FiO2 09/07/16 15:05 99 30 09/07/16 14:00 106 09/07/16 12:00 30 09/07/16 12:00 101.5 128 27 142/67 96 09/07/16 12:00 128 09/07/16 11:47 95 30 09/07/16 10:00 117 09/07/16 09:13 30 09/07/16 08:23 30 09/07/16 08:23 96 30 09/07/16 08:00 110 09/07/16 08:00 99.0 111 16 154/77 97 09/07/16 08:00 30 09/07/16 07:00 96 Mechanical Ventilator 30 09/07/16 06:00 108 09/07/16 05:50 100 100 09/07/16 04:00 30 09/07/16 04:00 105 09/07/16 04:00 98.2 105 16 145/75 97 09/07/16 03:50 98 30 09/07/16 02:00 100 09/07/16 01:06 98 30 09/07/16 01:06 98 30 09/07/16 00:00 101 09/07/16 00:00 30 09/07/16 00:00 97.9 101 16 128/70 97 09/06/16 22:00 103 09/06/16 20:10 97 30 09/06/16 20:00 98.8 104 16 134/73 97 09/06/16 20:00 104 09/06/16 20:00 30 09/06/16 19:00 96 Mechanical Ventilator 30 09/06/16 18:00 102 09/06/16 17:38 97 30 Intake & Output 09/07/16 09/07/16 06:59 18:59 Intake Total 3169 ml Output Total 2297 ml Balance 872 ml Intake IV Total 2187 ml Tube Feeding 822 ml Other 160 ml Output Urine Total 2250 ml Tube Feeding Residual Discard 0 ml Drainage Total 47 ml # Bowel Movements 0 Physical Exam CONSTITUTIONAL/GENERAL: This is an adequately nourished patient, in no apparent distress. Orally intubated on mechanical ventilation. TUBES/LINES/DRAINS: PIV's, arterial line, ET tube, OG, right EJ, left subclavian central line, Kumar catheter, SCDs, bilateral soft wrist restraints. SKIN: No jaundice, rashes, or lesions. No wounds seen anteriorly. Skin temperature appropriate. Not diaphoretic. HEAD: Atraumatic. Normocephalic. EYES: No scleral icterus. No injection or drainage. ENT: Unable to evaluate hearing secondary to clinical condition. Nose without bleeding or purulent drainage. Moist oral mucosa. CARDIOVASCULAR: Regular rate and rhythm without murmurs, gallops, or rubs. Peripheral pulses symmetric. RESPIRATORY/CHEST: Symmetric, unlabored respirations. Coarse breath sounds bilaterally. Orally intubated on mechanical ventilation. GASTROINTESTINAL: Abdomen soft, round. Bowel sounds present. GENITOURINARY: Without palpable bladder distension. Kumar catheter in place. MUSCULOSKELETAL: Extremities without clubbing, cyanosis. Edema to bilateral lower extremities. No mottling or clubbing. NEUROLOGICAL: Sedated and intubated on mechanical ventilation. Unresponsive to verbal or tactile stimuli during my assessment. PSYCHIATRIC: Unable to evaluate secondary to clinical condition. . (Della Gonzalez) Diagnostic Tests Laboratory Laboratory Tests Test 09/04/16 09/05/16 09/05/16 09/05/16 20:00 02:30 12:30 17:35 Sodium Level 140 MEQ/L 144 MEQ/L 144 MEQ/L 141 MEQ/L (136-145) (136-145) (136-145) (136-145) White Blood Count 10.8 TH/MM3 (4.0-11.0) Red Blood Count 4.33 MIL/MM3 (4.50-5.90) Hemoglobin 12.4 GM/DL (13.0-17.0) Hematocrit 36.0 % (39.0-51.0) Mean Corpuscular Volume 83.0 FL (80.0-100.0) Mean Corpuscular Hemoglobin 28.7 PG (27.0-34.0) Mean Corpuscular Hemoglobin 34.6 % Concent (32.0-36.0) Red Cell Distribution Width 14.7 % (11.6-17.2) Platelet Count 204 TH/MM3 (150-450) Mean Platelet Volume 8.5 FL (7.0-11.0) Potassium Level 4.1 MEQ/L (3.5-5.1) Chloride Level 111 MEQ/L (98-107) Carbon Dioxide Level 25.4 MEQ/L (21.0-32.0) Anion Gap 8 MEQ/L (5-15) Blood Urea Nitrogen 12 MG/DL (7-18) Creatinine 1.18 MG/DL (0.60-1.30) Estimat Glomerular Filtration 84 ML/MIN (>89) Rate Random Glucose 133 MG/DL (74-106) Calcium Level 8.3 MG/DL (8.5-10.1) Test 09/06/16 09/06/16 09/06/16 09/07/16 00:10 00:15 04:00 03:35 Blood Gas Puncture Site ART LINE Blood Gas Patient Temperature 98.6 Blood Gas HCO3 23 mmol/L (22-26) Blood Gas Base Excess -1.0 mmol/L (-2-2) Blood Gas Oxygen Saturation 94 % (90-100) Arterial Blood pH 7.42 (7.380-7.420) Arterial Blood Partial 36 mmHg (38-42) Pressure CO2 Arterial Blood Partial 87 mmHg Pressure O2 (61-120) Arterial Blood Oxygen Content 19.1 Vol % (12.0-20.0) Arterial Blood 1.0 % (0-4) Carboxyhemoglobin Arterial Blood Methemoglobin 1.0 % (0-2) Blood Gas Hemoglobin 14.4 G/DL (12.0-16.0) Oxygen Delivery Device VENTILATOR Blood Gas Ventilator Setting PRVC/AC Blood Gas Inspired Oxygen 30 % Sodium Level 143 MEQ/L 142 MEQ/L 141 MEQ/L (136-145) (136-145) (136-145) White Blood Count 16.5 TH/MM3 16.1 TH/MM3 (4.0-11.0) (4.0-11.0) Red Blood Count 4.30 MIL/MM3 4.11 MIL/MM3 (4.50-5.90) (4.50-5.90) Hemoglobin 12.0 GM/DL 11.4 GM/DL (13.0-17.0) (13.0-17.0) Hematocrit 36.1 % 34.5 % (39.0-51.0) (39.0-51.0) Mean Corpuscular Volume 83.8 FL 84.0 FL (80.0-100.0) (80.0-100.0) Mean Corpuscular Hemoglobin 27.8 PG 27.6 PG (27.0-34.0) (27.0-34.0) Mean Corpuscular Hemoglobin 33.2 % 32.9 % Concent (32.0-36.0) (32.0-36.0) Red Cell Distribution Width 14.7 % 15.0 % (11.6-17.2) (11.6-17.2) Platelet Count 200 TH/MM3 207 TH/MM3 (150-450) (150-450) Mean Platelet Volume 8.5 FL 8.3 FL (7.0-11.0) (7.0-11.0) Potassium Level 4.4 MEQ/L 4.1 MEQ/L (3.5-5.1) (3.5-5.1) Chloride Level 108 MEQ/L 106 MEQ/L (98-107) (98-107) Carbon Dioxide Level 26.5 MEQ/L 25.5 MEQ/L (21.0-32.0) (21.0-32.0) Anion Gap 8 MEQ/L (5-15) 10 MEQ/L (5-15) Blood Urea Nitrogen 13 MG/DL (7-18) 13 MG/DL (7-18) Creatinine 1.21 MG/DL 1.19 MG/DL (0.60-1.30) (0.60-1.30) Estimat Glomerular Filtration 81 ML/MIN (>89) 83 ML/MIN (>89) Rate Random Glucose 134 MG/DL 178 MG/DL (74-106) (74-106) Calcium Level 8.2 MG/DL 8.6 MG/DL (8.5-10.1) (8.5-10.1) Test 09/07/16 10:55 Urine Color YELLOW (YELLW/STRAW) Urine Turbidity CLEAR (CLEAR) Urine pH 6.5 (5.0-8.5) Urine Specific [place] 1.023 (1.002-1.035) Urine Protein 100 mg/dL (NEG-TRACE) Urine Glucose (UA) NEG mg/dL (NEG) Urine Ketones NEG mg/dL (NEG) Urine Occult Blood NEG (NEG) Urine Nitrite NEG (NEG) Urine Bilirubin NEG (NEG) Urine Urobilinogen 2.0 MG/DL (LESS THAN 2.0) Urine Leukocyte Esterase NEG (NEG) Urine RBC 2 /hpf (0-3) Urine WBC 4 /hpf (0-5) Urine Squamous Epithelial <1 /hpf (0-5) Cells Urine Mucus FEW /lpf (OCC) Microscopic Urinalysis Comment CATH-CULT NOT IND (Della Gonzalez) Result Diagram: 09/07/16 0335 09/07/16 0335 Microbiology Microbiology Date/Time Procedure Status Source Growth 09/07/16 10:55 Gram Stain Received Sputum Endotracheal Pending 09/07/16 10:55 Sputum Culture Received Sputum Endotracheal Pending 09/07/16 14:25 Aerobic Blood Culture Received Blood Peripheral Pending 09/07/16 14:25 Anaerobic Blood Culture Received Blood Peripheral Pending 09/07/16 14:45 Aerobic Blood Culture Received Blood Peripheral Pending 09/07/16 14:45 Anaerobic Blood Culture Received Blood Peripheral Pending Imaging Last Impressions Head CT 09/07/16 0600 Signed Impressions: Service Date/Time: Wednesday, September 07, 2016 06:05 - CONCLUSION: Stable brain appearance. Al Hernandez MD Chest X-Ray 09/02/16 0000 Signed Impressions: Service Date/Time: Friday, September 02, 2016 02:06 - CONCLUSION: Improvement in pulmonary edema. Erika Bob MD Neck CTA 09/01/162019 Signed Impressions: Service Date/Time: Thursday, September 01, 2016 20:55 - CONCLUSION: Unremarkable exam. The carotid arteries are intact. Ag Saxena MD Head CTA 09/01/162019 Signed Impressions: Service Date/Time: Thursday, September 01, 2016 20:55 - CONCLUSION: The etiology of the patient's right cerebellar h hemorrhage is not identified and there appears to be some infiltrates and possible pleural effusions in the upper lungs that are visualized. Erika Bob MD Procedures * 09/04/16 -right arterial line placement * 09/01/16 -Right suboccipital craniectomy with evacuation of cerebellar hemorrhage; right frontal bur hole ventriculostomy placement. . (Della Gonzalez) Assessment and Plan Disease Oriented Problem List: (1) Spontaneous intraparenchymal intracranial hemorrhage, acute (2) Acute respiratory failure (3) Malignant hypertension Symptom Scale: (1) Shortness of breath 0-10 Scale: Unable to quantify Comment: Secondary to acute respiratory failure. Patient remains intubated on mechanical ventilation. (2) Pain 0-10 Scale: Unable to quantify Comment: Secondary to recent surgical intervention, hospitalization/bedrest. (3) Vomiting 0-10 Scale: 0 Comment: Currently on Reglan. Pertinent Non-Medical Issues Psychosocial: . Has 2 children. Originally from [place]. Spiritual: Religion holly. Legal: No advance directives completed. Ethical issues impacting care: No advance directives completed. . Important Contacts /HCS Jaci Isabel ([phone]. . Prognosis Mr. Isabel is a 40-year-old male with no significant past medical history who presented on 09/01/16 with large right cerebellar hemisphere hemorrhage with extension into the isaac. He underwent right suboccipital craniectomy with evacuation of cerebellar hemorrhage; right frontal bur hole ventriculostomy placement. Patient at high risk for further complications, continue decline and . Poor prognosis for meaningful functional/neurological recovery. . Code Status: Full Code Plan * CODE STATUS: Full code. * HEALTHCARE DECISION-MAKER: Patient incapacitated secondary to clinical condition, unresponsive -intubated on mechanical ventilation. No advance directives completed. As per [place] law, patient's Jaci Isabel is proxy decision maker. She has accepted this role. * GOALS OF CARE: As per Jaci, continue with aggressive care to include full code. Reviewed early tracheostomy and PEG placement if patient is unable to tolerate weaning off vent support. verbalized wishing to continue with aggressive care, however, she has concerns about trach placement and what this can do to patient's voice. 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 Reviewed with that in the event of pt 's inability to liberate from vent support, tracheostomy would be a medical necessity and not an elective procedure given their wishes for continuation of aggressive management. Encouraged to further discuss with additional family members. Reviewed with that patient remains in critical condition, high risk for further complications, continue decline and . Uncertain prognosis for a meaningful functional/neurological recovery at this time. * SYMPTOMS: = Shortness of breath: Multifactorial. Secondary to acute respiratory failure/acute cerebellar hemorrhage. Remains orally intubated on mechanical ventilation. SBT started today, tolerated 2 1/2 hours on CPAP. = Pain: Secondary to recent surgical intervention, orally intubation, bedrest status. Fentanyl available as needed. = Vomiting: appears controlled. Patient on Reglan and bowel regimen. * Spiritual services following. * Case discussed with bedside RN and Dr. Knight. * Palliative care contact information has been provided to patient's . * Ongoing emotional support and active listening provided to patient's Jaci. * Palliative care will continue to follow-up as needed for further clarifications of goals of care, assist with communication and to provide ongoing emotional support throughout this hospitalization. . (Della Gonzalez) Time Spent Total Floor Time (mins): 31 (Total time to include review medical records, bedside conversation with patient's and assistance in completion of letter for pt's daughter Myriam Isabel. Case discussed with Dr. Knight and bedside RN. ) >50% Counseling/Coord of Care: Yes (Della Gonzalez) Attestation To help prompt me to consider important information that might be impacting today's encounter and assessment, information from prior notes written by myself or my colleagues may have been "brought forward" into today's note. My signature on this note, however, is an attestation that I personally performed the exam, history, and/or decision-making noted today, and, unless otherwise indicated, the interactions with patient, family, and staff as well as the review of records all occurred today. I also attest that the listed assessment and stated plan reflect my best clinical judgment today based on the combination of historical information, prior notes, and today's exam/ interactions. When time spent is documented, it refers only to time spent today by the signer, or if indicated, combined time spent today by collaborating physician/nurse practitioner. 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 (Ifeanyi Giles MD) Della Gonzalez September 07, 2016 16:50 Ifeanyi Giles MD September 08, 2016 11:39
[2016-09-07] MEDS: METOPROLOL TARTRATE 5 MG/5 ML VIAL IV PUSH PRN (16:57)
[2016-09-08] VITALS (18 sets, daily range): BP systolic 134–157; BP diastolic 72–90; PULSE 98–119; RESP 17–30; TEMP 98.4–101.5; O2SAT 92–100
[2016-09-08] MEDS: oxyCODONE HCL ORAL CONC 20 MG/ML SYRINGE PO SCH ×6 (00:07→20:20)
[2016-09-08] MEDS: RESP: ALBUTEROL 2.5 MG/IPRATROPIUM 0.5 MG NEB (SCH) INH ×4 (03:39→21:01)
[2016-09-08] MEDS: CHLORHEXIDINE GLUCONATE 2 % 1 PACK (2 CLOTHS) TOP SCH (04:00)
[2016-09-08 04:36] LABS: HEMATOCRIT 34.3 % (39.0-51.0); MEAN CELL VOLUME 84.2 FL (80.0-100.0); MEAN CORPUSCULAR HEMOGLOBIN 27.5 PG (27.0-34.0); MEAN CORPUSCULAR HGB CONC 32.7 % (32.0-36.0); PLATELET COUNT 234 TH/MM3 (150-450); RED BLOOD COUNT 4.07 MIL/MM3 (4.50-5.90); RED CELL DISTRIBUTION WIDTH 14.6 % (11.6-17.2); REVIEW FLAG FINAL; WHITE BLOOD COUNT 12.8 TH/MM3 (4.0-11.0)
[2016-09-08 04:46] LABS: BICARBONATE 26.2 MEQ/L (21.0-32.0); POTASSIUM 4.4 MEQ/L (3.5-5.1)
[2016-09-08] MEDS: INSULIN ASPART SUPPLEMENTAL SCALE SQ SCH ×4 (05:17→22:00)
[2016-09-08] MEDS: METOCLOPRAMIDE HCL SYRUP 10 MG/10 ML UDC PO SCH ×4 (06:12→20:20)
[2016-09-08] MEDS: niCARdipine INJ 25 MG in SODIUM CHLOR 0.9% 250 ML INJ 250 ML IV SCH ×4 (06:47→20:19)
[2016-09-08] MEDS: PROPOFOL 1000 MG/100 ML INJ 100 ML IV SCH ×7 (06:47→21:32)
[2016-09-08] MEDS: NS + KCL 20 MEQ INJ 1,000 ML IV SCH ×2 (07:47→19:42)
[2016-09-08] MEDS: CHLORHEXIDINE 0.12% (ORAL KIT) 15 ML CUP MT SCH ×2 (08:00→19:55)
[2016-09-08] MEDS: METOPROLOL TARTRATE 5 MG/5 ML VIAL IV PUSH PRN ×2 (08:10→19:34)
[2016-09-08] MEDS: SODIUM CHLORIDE 0.9% FLUSH 10 ML FLUSH SCH ×2 (08:11→21:00)
[2016-09-08] MEDS: levETIRAcetam INJ 500 MG in SODIUM CHLORIDE 0.9% INJ 100 ML IV SCH ×2 (08:11→20:19)
[2016-09-08] MEDS: PANTOPRAZOLE SODIUM 40 MG VIAL IV SCH (08:11)
[2016-09-08] MEDS: POLYETHYLENE GLYCOL 17 GM PKG PO SCH ×2 (08:12→20:19)
[2016-09-08] MEDS: DOCUSATE SODIUM 50 MG/SENNA 8.6 MG TAB PO SCH ×2 (08:12→20:20)
[2016-09-08] MEDS: BISACODYL 10 MG SUPP RECTAL SCH (08:12)
--- NOTE | 2016-09-08 08:53 | HHI.CCPN ---
Subjective Remarks/Hospital Course Hospital Course: 40-year-old male with reportedly no significant past medical history who was at work today and was taking out the garbage when he developed "the worse headache of his life". He was screaming in pain and [facility] was called. Upon [facility] arrival his GCS was 13 but rapidly deteriorated to GCS 3. He vomited. He was intubated on the scene without any drugs. CT brain demonstrated a large right cerebellar hemorrhage (4.9 x 5.7 cm) with effacement of the fourth ventricle. He has a very poor neurologic exam with absence of pupillary, corneal, gag, cough, oculocephalic reflexes. Not overbreathing vent but did not formally test apnea. Dr. Ovalles discussed with and she is requesting operative management. He is being taken for emergent CT angiogram and then to OR for evacuation by Dr. Ovalles. Subjective: 09/02: decompressive craniectomy overnight. per report, when he returned from the OR he apparently had a +gag. this morning remains encephalopathic. 06/06: vomiting on sedation vacation yesterday. cardene off. icp's controlled: 9 this AM. still poor neurologic exam. 09/04: on goal TF. no additional vomiting. following commands RUE, RLE. tracking. EVD at 15 cmH2O. ICP controlled. 09/05: still weakly following commands. ICP slightly elevated at 16-17 today. sedation vacation patient gets agitated, tachycardic, hypertensive. sputum growing pansensitive enterobacter. 09/06: still weakly following commands. ICP high overnight for ~30 minutes, but then improved. EVD challenged to 20 cmH2O today. still tachycardic and hypertensive. 09/07: still follows. ICP better controlled. EVD at [address] stable. 09/08: Delayed follow. Agitated when sedation lowered. Vomited early; will place NG to suction. Reglan already on board. We'd like to get to trial extubation for 's sake. Failed SBT today - will try again at higher PS. Objective Vital Signs Date Time Temp Pulse Resp B/P Pulse Ox O2 Delivery O2 Flow Rate FiO2 09/08/16 08:06 30 09/08/16 08:06 95 09/08/16 07:00 Mechanical Ventilator 09/08/16 06:00 110 09/08/16 04:00 99.0 19 134/90 09/05/16 10:35 6 Intake and Output 09/07/16 09/07/16 09/08/16 08:00 16:00 00:00 Intake Total 1473 ml 1936 ml 1199 ml Output Total 1412 ml 1059 ml 887 ml Balance 61 ml 877 ml 312 ml Result Diagram: 09/08/16 0415 09/08/16 0415 Objective Remarks GENERAL: male, orotracheally intubated. critically ill. SKIN: Warm and dry. HEAD: wrapped in bandage , clean and dry. EYES: No scleral icterus. ENT: No nasal bleeding or discharge. Mucous membranes pink and moist. NECK: Trachea midline.Orally intubated. CARDIOVASCULAR: . normal rate, regular rhythm. No JVD. RESPIRATORY: PRVC, fio2 40%. equal chest rise. Few mobile secretions. GASTROINTESTINAL: Abdomen soft, non-tender, nondistended. BS active. : Kumar in place MSK: No obvious deformity. No edema. Well perfused. NEUROLOGICAL: Pupils 2 mm, reactive. + cough, gag. FC delayed RUE, RLE. Remains flaccid on left. A/P Assessment and Plan Assessment: 40yM with large posterior fossa IPH now s/p decompressive posterior fossa craniectomy 09/01. encephalopathy slowly improving. still very poor prognosis given size and location of the bleed. goals are aggressive. palliative care consulted. I do not think he will be able to protect his airway. we will attempt sedation vacation and SBT, but if he fails, will plan to pursue tracheostomy. neuro exam stable. Head CT stable. Hypertension persists, and is difficult to control despite multiple anti-hypertensives. ICP somewhat improved. NEURO: Acute cerebellar hemorrhage (ICH Score 4) CT brain 09/01/16 - 4.9 x 5.3 cm right cerebellar hemorrhage with effacement of the fourth ventricle. CTA 09/01/16 - No e/o vascular abnormality. s/p Suboccipital craniectomy, cerebellar hemorrhage evacuation, ventriculostomy by Dr. Ovalles 09/01/16 Ventric at + 20 cm H20 per NSG Continue Keppra 500 mg IV every 12 d/c 3%. Maintain normothermia with tylenol/cooling blanket prn temp >100.4. Target RASS -1, patient comfort and vent synchrony, frequent neuro checks RESP: Acute hypoxic and hypercarbic respiratory failure Aspiration Intubated at the scene by [facility] with no sedation End tidal CO2 monitoring. Target PaCO2 35-40. Duoneb q6 hours; Albuterol q2 hours prn wheezing start SBT today. CV: Malignant Hypertension Sinus tachycardia Labetalol and hydralazine prn SBP <150. Nicardipine to maintain systolic blood pressure less than 150 lopressor 5mg iv q4h prn for HR > 90. GI: Vomiting- resolved. Zofran 4 mg IV q6 hours TF at goal. bowel regimen. FEN/RENAL: Renal insufficiency, unknown baseline creatinine Hypokalemia ICU electrolyte protocol Kumar in place due to critically ill patient in need of accurate I/O monitoring and at risk for urinary obstruction Monitor I/O and creatinine Monitor electrolytes and replace as indicated per ICU electively replacement protocol. ID: sputum growing enterobacter. Large amount of sputum production and e/o aspiration. Unasyn 3 gram IV q6 hours. will continue out 7 day course (anticipated stop date 09/07, today) resend blood cultures today, u/a, sputum. still plan on d/c abx today, but if he spikes a fever, will broaden him to empiric coverage. HEME: Monitor CBC, post op CBC pending. Coags WNL. Patient was not on anticoagulant or antiplatelet therapy. ENDO: Acute stress hyperglycemia Monitor bedside glucose and initiate low-dose insulin sliding scale as indicated PROPH: SCDs and teds for DVT prophylaxis. Pharmacologic DVT prophylaxis is contraindicated due to acute cerebellar hemorrhage. Protonix 40 mg IV daily for stress ulcer prophylaxis. ACCESS: right radial art line 09/04, left SC TLC 09/04. still requires both. Dispo: remain in the ICU. very critically ill. Overall impression: Will likely need tracheostomy. is still pondering options. Keanu Jama MD September 08, 2016 08:53
--- NOTE | 2016-09-08 09:06 | HHI.NSPN ---
History Chief Complaint: ICH s/p suboccipital craniectomy for evacuation. Interval History 40-year-old gentleman postop day #1 status post right suboccipital craniectomy with cerebellar hemorrhage evacuation and ventriculostomy placement. His ICPs have been normal postoperatively. When sedation was held he vomited and was noted to have some eye opening and right-sided movements per the nursing staff. 09/03/16: Pt sedated on Diprivan. Decreased by RN and pt reported tracked to right side. at bedside states he had some spontaneous movement in RUE and RLE. Pts bp increases and requires sedation and anti hypertensive meds. 09/04/16: Pt sedated on Diprivan. When sedation decreased by RN patient opens both eyes and follow commands on the right side. He has left hemiplegia. Patient intubated and sedated. 09/07/16: Pt on sedation vacation currently this morning. He opens both eyes. Pupils 4mm bilaterally reactive bilaterally. Follows simple commands right side , has delayed response. Ventriculostomy drain in place at 20 cmH20, ICP14. Follow up CT head reviewed stable. 09/08/16: Pt sedated on Diprivan. Had episode of vomiting this morning. Follows intermittently right side. Left hemiparesis. Ventriculostomy drain in place at [id number]. ICP 7. System Review Comments Not able to obtain given clinical exam. Exam Results Vital Signs Date Time Temp Pulse Resp B/P Pulse Ox O2 Delivery O2 Flow Rate FiO2 09/08/16 08:06 30 09/08/16 08:06 95 09/08/16 07:00 Mechanical Ventilator 09/08/16 06:00 110 09/08/16 04:00 99.0 19 134/90 09/05/16 10:35 6 Intake and Output 09/07/16 09/07/16 09/08/16 08:00 16:00 00:00 Intake Total 1473 ml 1936 ml 1199 ml Output Total 1412 ml 1059 ml 887 ml Balance 61 ml 877 ml 312 ml Physical Examination Resp: Intubated. Pressure controlled. FiO2 30%. Rate 16. PEEP 5. Heart: Mild tachycardia. No murmurs. On cardene drip. Abd: Soft positive bs but diminished Skin: Scalp incisions are clean and dry and intact SCDs in place. Muscle: lay health advocate right hand and moves right foot to command with delayed response. Left side no movement. Neuro: Sedated on Diprivan. Pupils 4 mm reactive. EVD in place draining mild output at 20 cm water pressure. ICP 7. Positive cough and gag. Lab, Micro, Other Results Last Impressions Head CT 09/07/16 0600 Signed Impressions: Service Date/Time: Wednesday, September 07, 2016 06:05 - CONCLUSION: Stable brain appearance. Al Hernandez MD Chest X-Ray 09/02/16 0000 Signed Impressions: Service Date/Time: Friday, September 02, 2016 02:06 - CONCLUSION: Improvement in pulmonary edema. Erika Bob MD Neck CTA 09/01/162019 Signed Impressions: Service Date/Time: Thursday, September 01, 2016 20:55 - CONCLUSION: Unremarkable exam. The carotid arteries are intact. Ag Saxena MD Head CTA 09/01/162019 Signed Impressions: Service Date/Time: Thursday, September 01, 2016 20:55 - CONCLUSION: The etiology of the patient's right cerebellar h hemorrhage is not identified and there appears to be some infiltrates and possible pleural effusions in the upper lungs that are visualized. Erika Bob MD Laboratory Tests Test 09/07/16 09/08/16 10:55 04:15 Urine Color YELLOW Urine Turbidity CLEAR Urine pH 6.5 Urine Specific [place] 1.023 Urine Protein 100 mg/dL Urine Glucose (UA) NEG mg/dL Urine Ketones NEG mg/dL Urine Occult Blood NEG Urine Nitrite NEG Urine Bilirubin NEG Urine Urobilinogen 2.0 MG/DL Urine Leukocyte Esterase NEG Urine RBC 2 /hpf Urine WBC 4 /hpf Urine Squamous Epithelial <1 /hpf Cells Urine Mucus FEW /lpf Microscopic Urinalysis Comment CATH-CULT NOT IND White Blood Count 12.8 TH/MM3 Red Blood Count 4.07 MIL/MM3 Hemoglobin 11.2 GM/DL Hematocrit 34.3 % Mean Corpuscular Volume 84.2 FL Mean Corpuscular Hemoglobin 27.5 PG Mean Corpuscular Hemoglobin 32.7 % Concent Red Cell Distribution Width 14.6 % Platelet Count 234 TH/MM3 Mean Platelet Volume 8.4 FL Sodium Level 137 MEQ/L Potassium Level 4.4 MEQ/L Chloride Level 102 MEQ/L Carbon Dioxide Level 26.2 MEQ/L Anion Gap 9 MEQ/L Blood Urea Nitrogen 14 MG/DL Creatinine 1.23 MG/DL Estimat Glomerular Filtration 80 ML/MIN Rate Random Glucose 251 MG/DL Calcium Level 8.7 MG/DL 09/07/16 09/07/16 09/08/16 15:00 23:00 07:00 Intake Total 1936 ml 1199 ml 1234 ml Output Total 1059 ml 887 ml 1582 ml Balance 877 ml 312 ml -348 ml Intake IV Total 1412 ml 677 ml 644 ml Tube Feeding 404 ml 422 ml 490 ml Tube Irrigant 120 ml Other 100 ml 100 ml Output Urine Total 1050 ml 875 ml 1575 ml Drainage Total 9 ml 12 ml 7 ml # Bowel Movements 0 0 0 Medical Decision Making Impression and Plan A: 40 y/o M with Large right cerebellar hemisphere spontaneous hemorrhage likely hypertensive with no underlying vascular abnormality noted. He is status post suboccipital craniectomy with intracranial hemorrhage evacuation and ventriculostomy placement. His ICPs have been normal at 7 even with challenging of ventric. P: Continue with blood pressure control Continue with neuro checks Continue with critical care. Discussed with at bedside. Edgar Wallace September 08, 2016 09:06
[2016-09-08] MEDS: ONDANSETRON HCL 4 MG/2 ML VIAL IV PUSH PRN (09:15)
[2016-09-08] MEDS: ACETAMINOPHEN 1000 MG/100 ML VIAL IV PRN ×3 (10:12→21:32)
--- NOTE | 2016-09-08 12:23 | HHI.HCSW ---
Supervisor Statement Clerks Visit Cognitive Functioning On mechanical vent. . Significant Family/Friend Met with , Jaci, at patient's bedside. Provided letters as requested yesterday with LIZETTE Jenkins. She reports she is working on obtaining POA and applying for disability and workman's compensation. Spoke with change, report they are currently reviewing Mr. Isabel's record and will be in contact with on how they can assist. Answered questions and concerns to the best of my ability. Provided emotional support and active listening. Another friend at bedside. . Pertinent Social History Per Jaci, Mr. Isabel is very well known in the community with a good support network. He enjoys singing and being social. There is a daughter, Myriam Isabel , currently in [place] working on getting a visa to the . . Quality of Life Values/Goals Singing is a major part of Mr. Isabel's life. concerned of effects trach could have on his vocal cords. Provided emotional support. . [facility] chaplains following. Access Spec in to visit upon my exit. . Advance Directive No written advanced directives. Per [place] Statutes medical proxy decision making falls to patient's . is also working with [facility] to obtain financial POA documents. Informed her of option to complete POA with immigration attorney for assistance to ensure it is completed correctly. . Follow Up Visit Will continue to follow throughout hospitalization to provide emotional and social support. Valeria Maddox, ELECTRONIC DATA PROCESSING AUDITOR September 08, 2016 12:23
[2016-09-08] MEDS: LABETALOL HCL 100 MG/20 ML VIAL IV PUSH PRN (19:29)
[2016-09-08] MEDS: fentaNYL 2,500 MCG/NS 250 ML IV SCH (23:34)
[2016-09-09] VITALS (17 sets, daily range): BP systolic 120–152; BP diastolic 63–88; PULSE 88–114; RESP 20–28; TEMP 97.3–99.7; O2SAT 92–100
[2016-09-09] MEDS: oxyCODONE HCL ORAL CONC 20 MG/ML SYRINGE PO SCH ×6 (01:00→21:15)
[2016-09-09] MEDS: PROPOFOL 1000 MG/100 ML INJ 100 ML IV SCH ×5 (01:14→23:56)
[2016-09-09 01:55] LABS: MEAN CELL VOLUME 82.6 FL (80.0-100.0); MEAN CORPUSCULAR HEMOGLOBIN 27.4 PG (27.0-34.0); MEAN CORPUSCULAR HGB CONC 33.2 % (32.0-36.0); PLATELET COUNT 276 TH/MM3 (150-450); RED BLOOD COUNT 4.23 MIL/MM3 (4.50-5.90); RED CELL DISTRIBUTION WIDTH 14.9 % (11.6-17.2); REVIEW FLAG FINAL; WHITE BLOOD COUNT 14.8 TH/MM3 (4.0-11.0)
[2016-09-09 02:30] LABS: BICARBONATE 24.9 MEQ/L (21.0-32.0); POTASSIUM 4.3 MEQ/L (3.5-5.1)
[2016-09-09] MEDS: niCARdipine INJ 25 MG in SODIUM CHLOR 0.9% 250 ML INJ 250 ML IV SCH ×5 (02:50→23:52)
[2016-09-09] MEDS: INSULIN ASPART SUPPLEMENTAL SCALE SQ SCH ×4 (03:35→21:29)
[2016-09-09] MEDS: CHLORHEXIDINE GLUCONATE 2 % 1 PACK (2 CLOTHS) TOP SCH (03:36)
[2016-09-09] MEDS: RESP: ALBUTEROL 2.5 MG/IPRATROPIUM 0.5 MG NEB (SCH) INH ×2 (04:00→07:54)
[2016-09-09] MEDS: METOCLOPRAMIDE HCL SYRUP 10 MG/10 ML UDC PO SCH ×4 (06:54→21:15)
[2016-09-09] MEDS: CHLORHEXIDINE 0.12% (ORAL KIT) 15 ML CUP MT SCH ×2 (08:30→21:14)
[2016-09-09] MEDS: NS + KCL 20 MEQ INJ 1,000 ML IV SCH ×2 (08:35→21:13)
[2016-09-09] MEDS: levETIRAcetam INJ 500 MG in SODIUM CHLORIDE 0.9% INJ 100 ML IV SCH ×2 (08:36→21:14)
[2016-09-09] MEDS: POLYETHYLENE GLYCOL 17 GM PKG PO SCH ×2 (08:36→21:14)
[2016-09-09] MEDS: DOCUSATE SODIUM 50 MG/SENNA 8.6 MG TAB PO SCH ×2 (08:36→21:15)
[2016-09-09] MEDS: PANTOPRAZOLE SODIUM 40 MG VIAL IV SCH (08:36)
[2016-09-09] MEDS: SODIUM CHLORIDE 0.9% FLUSH 10 ML FLUSH SCH ×2 (08:36→21:14)
[2016-09-09] MEDS: BISACODYL 10 MG SUPP RECTAL SCH (08:37)
--- NOTE | 2016-09-09 11:26 | HHI.CCPN ---
Subjective Remarks/Hospital Course Hospital Course: 40-year-old male with reportedly no significant past medical history who was at work today and was taking out the garbage when he developed "the worse headache of his life". He was screaming in pain and [facility] was called. Upon [facility] arrival his GCS was 13 but rapidly deteriorated to GCS 3. He vomited. He was intubated on the scene without any drugs. CT brain demonstrated a large right cerebellar hemorrhage (4.9 x 5.7 cm) with effacement of the fourth ventricle. He has a very poor neurologic exam with absence of pupillary, corneal, gag, cough, oculocephalic reflexes. Not overbreathing vent but did not formally test apnea. Dr. Ovalles discussed with and she is requesting operative management. He is being taken for emergent CT angiogram and then to OR for evacuation by Dr. Ovalles. Subjective: 09/02: decompressive craniectomy overnight. per report, when he returned from the OR he apparently had a +gag. this morning remains encephalopathic. 06/06: vomiting on sedation vacation yesterday. cardene off. icp's controlled: 9 this AM. still poor neurologic exam. 09/04: on goal TF. no additional vomiting. following commands RUE, RLE. tracking. EVD at 15 cmH2O. ICP controlled. 09/05: still weakly following commands. ICP slightly elevated at 16-17 today. sedation vacation patient gets agitated, tachycardic, hypertensive. sputum growing pansensitive enterobacter. 09/06: still weakly following commands. ICP high overnight for ~30 minutes, but then improved. EVD challenged to 20 cmH2O today. still tachycardic and hypertensive. 09/07: still follows. ICP better controlled. EVD at [address] stable. 09/08: Delayed follow. Agitated when sedation lowered. Vomited early; will place NG to suction. Reglan already on board. We'd like to get to trial extubation for 's sake. Failed SBT today - will try again at higher PS. 09/09 no evidence overnight, no more vomiting, discussed with for tracheostomy placement Objective Vital Signs Date Time Temp Pulse Resp B/P Pulse Ox O2 Delivery O2 Flow Rate FiO2 09/09/16 07:56 100 30 09/09/16 06:00 99 09/09/16 04:00 97.3 20 130/76 09/08/16 19:00 Mechanical Ventilator 09/05/16 10:35 6 Intake and Output 09/08/16 09/08/16 09/09/16 08:00 16:00 00:00 Intake Total 1234 ml 1256 ml 1397 ml Output Total 1582 ml 1211 ml 1525 ml Balance -348 ml 45 ml -128 ml Result Diagram: 09/09/16 0150 09/09/16 0150 Other Results Microbiology Date/Time Procedure Status Source Growth 09/07/16 10:55 Gram Stain - Final Complete Sputum Endotracheal 09/07/16 10:55 Sputum Culture - Final Complete Klebsiella Pneumoniae Enterobacter Aerogenes Objective Remarks GENERAL: male, orotracheally intubated. critically ill. SKIN: Warm and dry. HEAD: wrapped in bandage , clean and dry. EYES: No scleral icterus. ENT: No nasal bleeding or discharge. Mucous membranes pink and moist. NECK: Trachea midline.Orally intubated. CARDIOVASCULAR: . normal rate, regular rhythm. No JVD. RESPIRATORY: PRVC, fio2 40%. equal chest rise. Few mobile secretions. GASTROINTESTINAL: Abdomen soft, non-tender, nondistended. BS active. : Kumar in place MSK: No obvious deformity. No edema. Well perfused. NEUROLOGICAL: Pupils 2 mm, reactive. + cough, gag. FC delayed RUE, RLE. Remains flaccid on left. A/P Assessment and Plan Assessment: 40yM with large posterior fossa IPH now s/p decompressive posterior fossa craniectomy 09/01. encephalopathy slowly improving. still very poor prognosis given size and location of the bleed. goals are aggressive. palliative care consulted. I do not think he will be able to protect his airway. we will attempt sedation vacation and SBT, but if he fails, will plan to pursue tracheostomy. neuro exam stable. Head CT stable. Hypertension persists, and is difficult to control despite multiple anti-hypertensives. ICP somewhat improved. NEURO: Acute cerebellar hemorrhage (ICH Score 4) CT brain 09/01/16 - 4.9 x 5.3 cm right cerebellar hemorrhage with effacement of the fourth ventricle. CTA 09/01/16 - No e/o vascular abnormality. s/p Suboccipital craniectomy, cerebellar hemorrhage evacuation, ventriculostomy by Dr. Ovalles 09/01/16 Ventric at + 20 cm H20 per NSG Continue Keppra 500 mg IV every 12 d/c 3%. Maintain normothermia with tylenol/cooling blanket prn temp >100.4. Target RASS -1, patient comfort and vent synchrony, frequent neuro checks RESP: Acute hypoxic and hypercarbic respiratory failure Aspiration Intubated at the scene by EVAC with no sedation End tidal CO2 monitoring. Target PaCO2 35-40. Duoneb q6 hours; Albuterol q2 hours prn wheezing Discussed with tracheostomy option CV: Malignant Hypertension Sinus tachycardia Labetalol and hydralazine prn SBP <150. Nicardipine to maintain systolic blood pressure less than 150 lopressor 5mg iv q4h prn for HR > 90. GI: Vomiting- resolved. Zofran 4 mg IV q6 hours TF at goal. bowel regimen. FEN/RENAL: Renal insufficiency, unknown baseline creatinine Hypokalemia ICU electrolyte protocol Kumar in place due to critically ill patient in need of accurate I/O monitoring and at risk for urinary obstruction Monitor I/O and creatinine Monitor electrolytes and replace as indicated per ICU electively replacement protocol. ID: sputum growing enterobacter. Large amount of sputum production and e/o aspiration. Unasyn 3 gram IV q6 hours. will continue out 7 day course (anticipated stop date 09/07, today) resend blood cultures today, u/a, sputum. still plan on d/c abx today, but if he spikes a fever, will broaden him to empiric coverage. HEME: Monitor CBC, post op CBC pending. Coags WNL. Patient was not on anticoagulant or antiplatelet therapy. ENDO: Acute stress hyperglycemia Monitor bedside glucose and initiate low-dose insulin sliding scale as indicated PROPH: SCDs and teds for DVT prophylaxis. Pharmacologic DVT prophylaxis is contraindicated due to acute cerebellar hemorrhage. Protonix 40 mg IV daily for stress ulcer prophylaxis. ACCESS: right radial art line 09/04, left SC TLC 09/04. still requires both. Dispo: remain in the ICU. very critically ill. Critical Care: The total critical care time was 35 minutes. Time to perform other separately billable procedures was not included in the critical care time. Orestes Wang MD September 09, 2016 11:26
[2016-09-09] MEDS: METOPROLOL TARTRATE 5 MG/5 ML VIAL IV PUSH PRN ×2 (11:39→17:22)
--- NOTE | 2016-09-09 11:52 | HHI.NSPN ---
History Chief Complaint: ICH s/p suboccipital craniectomy for evacuation. Exam Results Vital Signs Date Time Temp Pulse Resp B/P Pulse Ox O2 Delivery O2 Flow Rate FiO2 09/09/16 11:05 92 30 09/09/16 06:00 99 09/09/16 04:00 97.3 20 130/76 09/08/16 19:00 Mechanical Ventilator 09/05/16 10:35 6 Intake and Output 09/08/16 09/08/16 09/09/16 08:00 16:00 00:00 Intake Total 1234 ml 1256 ml 1397 ml Output Total 1582 ml 1211 ml 1525 ml Balance -348 ml 45 ml -128 ml Physical Examination Resp: Intubated. Pressure controlled. Heart: Mild tachycardia. No murmurs. Abd: Soft positive bs but diminished Skin: Scalp incisions are clean and dry and intact SCDs in place. Muscle: primer inserting machine operator right hand and moves right foot to command with delayed response. Left side no movement. Neuro: Sedated on Diprivan and fentanyl drips. Pupils 4 mm reactive. Ventricular last been clamped since yesterday with ICP 14. Positive cough and gag. Medical Decision Making Impression and Plan 40-year-old status post large cerebellar hemorrhage with extension into the brainstem/isaac status post cerebral hemorrhage evacuation. Tolerating ventricular ostomy clamped so far normal ICPs. Wean sedation and ventilator status as tolerated. Discussed the likelihood for tracheostomy with the who is now agreeable to this. Gutierrez Ovalles MD September 09, 2016 11:51
[2016-09-09] MEDS: fentaNYL 2,500 MCG/NS 250 ML IV SCH ×2 (13:46→23:52)
[2016-09-09] MEDS: LABETALOL HCL 100 MG/20 ML VIAL IV PUSH PRN (18:44)
[2016-09-10] VITALS (18 sets, daily range): BP systolic 118–139; BP diastolic 64–83; PULSE 107–120; RESP 20–30; TEMP 98.6–100; O2SAT 92–100
[2016-09-10] MEDS: METOPROLOL TARTRATE 5 MG/5 ML VIAL IV PUSH PRN (00:50)
[2016-09-10] MEDS: oxyCODONE HCL ORAL CONC 20 MG/ML SYRINGE PO SCH ×6 (00:51→21:21)
[2016-09-10] MEDS: niCARdipine INJ 25 MG in SODIUM CHLOR 0.9% 250 ML INJ 250 ML IV SCH ×3 (02:25→14:47)
[2016-09-10] MEDS: CHLORHEXIDINE GLUCONATE 2 % 1 PACK (2 CLOTHS) TOP SCH (04:00)
[2016-09-10] MEDS: INSULIN ASPART SUPPLEMENTAL SCALE SQ SCH ×4 (04:00→22:00)
[2016-09-10] MEDS ORDERED: SUCCINYLCHOLINE CHLORIDE 200 MG/10 ML VIAL IV PUSH ONE (04:20)
[2016-09-10 04:34] LABS: BLOOD GAS BASE EXCESS -1.2 mmol/L (-2-2); BLOOD GAS CARBOXYHEMOGLOBIN 1.1 % (0-4); BLOOD GAS HCO3 22 mmol/L (22-26); BLOOD GAS METHEMOGLOBIN 1.1 % (0-2); BLOOD GAS O2 HGB SATURATION 94 % (90-100); BLOOD GAS OXYGEN CONTENT 15.4 Vol % (12.0-20.0); BLOOD GAS PCO2 33 mmHg (38-42); BLOOD GAS PO2 89 mmHg (61-120); BLOOD GAS TOTAL HGB 11.5 G/DL (12.0-16.0); CRITICAL VALUE NO; OXYGEN DEVICE VENTILATOR; TEMP CORR TO 98.6; VENT SETTINGS PRVC/AC
[2016-09-10 04:35] LABS: DRAW SITE ART LINE; FIO2 30 %; STAT NO
[2016-09-10 04:38] LABS: AUTOMATED NEUTROPHIL # 13.1 TH/MM3 (1.8-7.7); BASOPHIL # 0.1 TH/MM3 (0-0.2); BASOPHIL % 0.8 % (0.0-2.0); EOSINOPHIL # 0.1 TH/MM3 (0-0.4); EOSINOPHIL % 0.9 % (0.0-4.0); HEMATOCRIT 32.6 % (39.0-51.0); LYMPH % 8.1 % (9.0-44.0); LYMPHOCYTE # 1.3 TH/MM3 (1.0-4.8); MEAN CELL VOLUME 81.8 FL (80.0-100.0); MEAN CORPUSCULAR HEMOGLOBIN 27.9 PG (27.0-34.0); MEAN CORPUSCULAR HGB CONC 34.2 % (32.0-36.0); MONO % 9.6 % (0.0-8.0); NEUT % 80.6 % (16.0-70.0); PLATELET COUNT 315 TH/MM3 (150-450); RED BLOOD COUNT 3.99 MIL/MM3 (4.50-5.90); RED CELL DISTRIBUTION WIDTH 14.3 % (11.6-17.2); WHITE BLOOD COUNT 16.3 TH/MM3 (4.0-11.0)
[2016-09-10 04:40] LABS: HEMO FLAGS AUTO DIFF
--- NOTE | 2016-09-10 04:48 | RADRPT ---
EXAM DATE/TIME: 09/10/2016 02:50 [facility] COMPARISON: CHEST SINGLE AP, September 02, 2016, 2:06. INDICATIONS : Respiratory distress. MEDICAL HISTORY : None. SURGICAL HISTORY : None. ENCOUNTER: Subsequent ACUITY: 1 week PAIN SCORE: Non-responsive. LOCATION: Bilateral chest FINDINGS: Endotracheal tube, nasogastric tube and central line are stable. Diffuse bilateral infiltrates worse on the left than the right are roughly stable. Cardiac contours are stable. CONCLUSION: No significant change Al Hernandez MD on September 10, 2016 at 4:45 Board Certified Radiologist. This report was verified electronically.
[2016-09-10 05:05] LABS: ANION GAP 9 MEQ/L (5-15); AST (GOT) 151 U/L (15-37); BICARBONATE 24.1 MEQ/L (21.0-32.0); BLOOD UREA NITROGEN 20 MG/DL (7-18); CHLORIDE 104 MEQ/L (98-107); GLOMERULAR FILTRATION RATE 72 ML/MIN (>89); MAGNESIUM 2.1 MG/DL (1.5-2.5); SODIUM (NA) 137 MEQ/L (136-145)
[2016-09-10 05:08] LABS: ALKALINE PHOSPHATASE 217 U/L (45-117); ALT (GPT) 177 U/L (12-78); TOTAL BILIRUBIN ADULT 0.7 MG/DL (0.2-1.0)
[2016-09-10] MEDS ORDERED: VECURONIUM BROMIDE 10 MG VIAL IV PUSH ONE (05:30)
[2016-09-10] MEDS ORDERED: VECURONIUM BROMIDE 10 MG VIAL ONE ×2 (05:35→05:46)
[2016-09-10] MEDS ORDERED: LIDOCAINE HCL 1% 50 ML VIAL ONE (05:48)
--- NOTE | 2016-09-10 06:44 | PD.PROCEDR ---
Procedure Note Procedure Tracheostomy DATE OF PROCEDURE: 09/10/2016 PREOPERATIVE DIAGNOSES: 1. Posterior fossa hypertensive intracranial bleed 2. Anticipated prolonged need for mechanical ventilatory support. POSTOPERATIVE DIAGNOSES: 1. Posterior fossa hypertensive intracranial bleed 2. Anticipated prolonged need for mechanical ventilatory support. PROCEDURE PERFORMED: Percutaneous tracheostomy. SURGEON: Orestes Wang MD PROVIDER RELATIONS SPECIALIST : Keanu Jama MD ANESTHESIA: Fentanyl drip plus local infiltration with 0.5% lidocaine with epinephrine. ESTIMATED BLOOD LOSS: Minimal. COMPLICATIONS: None. INDICATIONS FOR PROCEDURE: The patient is a 40 year -old male who suffered hypertensive posterior foci intracranial intraparenchymal brain hemorrhagic stroke. He has had prolonged ventilator support and likely will require future prolonged ventilatory support. Need for formal tracheostomy is indicated for this reason. The risks, benefits and alternatives were described to the patient s family, and they were willing to proceed. DESCRIPTION OF PROCEDURE: This procedure was performed at the bedside in the surgical intensive care unit. A surgical time-out was undertaken to verify the patients procedure and site. He was adequately sedated with vecuronium 10 mg as well as intermittent fentanyl and propofol, which he had already been receiving. The patients neck was mildly extended. The anterior neck was prepped with Betadine solution and draped in a sterile fashion. Attention was directed at the midline trachea, where a longitudinal skin incision was made in the midline, just inferior to the cricothyroid membrane. The cricothyroid membrane was palpated and the tracheal rings were noted. Approximately the third tracheal interspace was identified. This was then accessed with a needle and sheath and a Seldinger technique was employed. Identification of the location of the tracheostomy site was confirmed with fiberoptic bronchoscopy. Once endotracheal position of the sheath and guidewire were confirmed, the tracheostomy site was serially dilated. Next, a cuffed Shiley tracheostomy tube was inserted over a tracheal dilator, over the guidewire, into the trachea. The Shiley cuff was inflated and the dilator and guidewire were removed. The inner cannula was introduced and the ventilator was connected to the newly formed tracheostomy. The previous orotracheal tube was removed, and the patient was ventilated adequately through the percutaneous tracheostomy. The tracheostomy itself was secured with 2-0 silk x4 at the skin. Also, a Velcro neck tie was also employed to help secure the tracheostomy tube. No air leak was noted. Tidal volumes were appropriate for the ventilator settings. The patient tolerated the procedure well. All instrument and needle counts were correct at the end of the case. Orestes Wang MD Sep 10, 2016 06:44
--- NOTE | 2016-09-10 06:55 | RADRPT ---
EXAM DATE/TIME: 09/10/2016 06:31 [facility] COMPARISON: CHEST SINGLE AP, September 10, 2016, 2:50. INDICATIONS : Trach placement. MEDICAL HISTORY : None. SURGICAL HISTORY : None. ENCOUNTER: Subsequent ACUITY: 1 week PAIN SCORE: Non-responsive. LOCATION: Bilateral chest FINDINGS: Tracheostomy is present in good position. Left neck central line is stable. Feeding tube descends to the stomach. Hazy bilateral pleuroparenchymal opacities are slightly more pronounced on previous eval uation. Cardiac contours are grossly stable. CONCLUSION: Tracheostomy in place without definite complication. Slight interval worsening in aeration. Al Hernandez MD on September 10, 2016 at 6:53 Board Certified Radiologist. This report was verified electronically.
--- NOTE | 2016-09-10 06:56 | RADRPT ---
EXAM DATE/TIME: 09/10/2016 06:34 [facility] COMPARISON: No previous studies available for comparison. INDICATIONS : Post DOBHOFF placement. MEDICAL HISTORY : None. SURGICAL HISTORY : None. ENCOUNTER: Initial ACUITY: 1 day PAIN SCORE: Non-responsive. LOCATION: abdomen. FINDINGS: Weighted feeding tube tip terminates overlying the stomach. Intestinal gas pattern is nonspecific and benign. No suspicious calcific densities. Regional skeleton is grossly intact. CONCLUSION: Feeding tube tip in the stomach Al Hernandez MD on September 10, 2016 at 6:53 Board Certified Radiologist. This report was verified electronically.
[2016-09-10] MEDS: METOCLOPRAMIDE HCL SYRUP 10 MG/10 ML UDC PO SCH ×4 (07:00→21:19)
[2016-09-10 07:03] LABS: BANDS 20 % (0-6); EOSINOPHILS 1 % (0-4); METAMYELOCYTES 1 % (0-1); PLATELET ESTIMATE SMEAR NORMAL (NORMAL); PLATELET MORPHOLOGY NORMAL (NORMAL); POLYS (SEG NEUTROPHILS) 65 % (16-70); SCAN/DIFF FINAL DIFF MANUAL; WBC DIFF SAMPLE 100
[2016-09-10] MEDS: NS + KCL 20 MEQ INJ 1,000 ML IV SCH ×2 (07:07→17:12)
[2016-09-10] MEDS: CHLORHEXIDINE 0.12% (ORAL KIT) 15 ML CUP MT SCH ×2 (08:00→21:20)
[2016-09-10] MEDS: POLYETHYLENE GLYCOL 17 GM PKG PO SCH ×2 (08:24→21:17)
[2016-09-10] MEDS: DOCUSATE SODIUM 50 MG/SENNA 8.6 MG TAB PO SCH ×2 (08:24→21:17)
[2016-09-10] MEDS: PANTOPRAZOLE SODIUM 40 MG VIAL IV SCH (08:24)
[2016-09-10] MEDS: levETIRAcetam INJ 500 MG in SODIUM CHLORIDE 0.9% INJ 100 ML IV SCH ×2 (08:25→21:20)
[2016-09-10] MEDS: PROPOFOL 1000 MG/100 ML INJ 100 ML IV SCH ×3 (08:25→23:10)
--- NOTE | 2016-09-10 08:58 | HHI.NSPN ---
History Chief Complaint: ICH s/p suboccipital craniectomy for evacuation. Interval History 40-year-old gentleman postop day #1 status post right suboccipital craniectomy with cerebellar hemorrhage evacuation and ventriculostomy placement. His ICPs have been normal postoperatively. When sedation was held he vomited and was noted to have some eye opening and right-sided movements per the nursing staff. 09/03/16: Pt sedated on Diprivan. Decreased by RN and pt reported tracked to right side. at bedside states he had some spontaneous movement in RUE and RLE. Pts bp increases and requires sedation and anti hypertensive meds. 09/04/16: Pt sedated on Diprivan. When sedation decreased by RN patient opens both eyes and follow commands on the right side. He has left hemiplegia. Patient intubated and sedated. 09/07/16: Pt on sedation vacation currently this morning. He opens both eyes. Pupils 4mm bilaterally reactive bilaterally. Follows simple commands right side , has delayed response. Ventriculostomy drain in place at 20 cmH20, ICP14. Follow up CT head reviewed stable. 09/08/16: Pt sedated on Diprivan. Had episode of vomiting this morning. Follows intermittently right side. Left hemiparesis. Ventriculostomy drain in place at [id number]. ICP 7. 09/10/16: Pt sedation held this morning RN and pt coughing on vent and turned back on. Trach was done this morning. Not following commands, sedated. Ventric clamped ICP 3. System Review Comments Not able to obtain given clinical condition. Exam Results Vital Signs Date Time Temp Pulse Resp B/P Pulse Ox O2 Delivery O2 Flow Rate FiO2 09/10/16 08:00 107 09/10/16 07:58 97 50 09/10/16 07:00 Mechanical Ventilator 09/10/16 04:00 99.7 30 118/64 Intake and Output 09/09/16 09/09/16 09/10/16 08:00 16:00 00:00 Intake Total 765 ml 1207 ml 1299 ml Output Total 3150 ml 1300 ml 1450.0 ml Balance -2385 ml -93 ml -151.0 ml Physical Examination Resp: CTA bilaterally. Pressure controlled rate 20 RR 5 FiO2 50%. Heart: Mild tachycardia. No murmurs. Abd: Soft positive bs but diminished Skin: Scalp incisions are clean and dry and intact SCDs in place. Muscle: Not following commands currently requires sedation on Diprivan and Fentanyl drips for vent. Neuro: Sedated on Diprivan and fentanyl drips. When decreased pt gets coughing fits. Pupils 4 mm reactive. Ventricular remains clamped, ICP 3. Positive cough and gag. Lab, Micro, Other Results Last Impressions Chest X-Ray 09/10/16 06 Signed Impressions: Service Date/Time: September 02:50 - CONCLUSION: No significant change Al Hernandez MD Abdomen X-Ray 09/10/16 0000 Signed Impressions: Service Date/Time: September 06:34 - CONCLUSION: Feeding tube tip in the stomach Al Hernandez MD Head CT 09/07/16 06 Signed Impressions: Service Date/Time: Wednesday, September 07, 2016 06:05 - CONCLUSION: Stable brain appearance. Al Hernandez MD Neck CTA 09/01/162019 Signed Impressions: Service Date/Time: Thursday, September 01, 2016 20:55 - CONCLUSION: Unremarkable exam. The carotid arteries are intact. Ag Saxena MD Head CTA 09/01/162019 Signed Impressions: Service Date/Time: Thursday, September 01, 2016 20:55 - CONCLUSION: The etiology of the patient's right cerebellar h hemorrhage is not identified and there appears to be some infiltrates and possible pleural effusions in the upper lungs that are visualized. Erika Bob MD Laboratory Tests Test 09/10/16 09/10/16 04:05 04:25 White Blood Count 16.3 TH/MM3 Red Blood Count 3.99 MIL/MM3 Hemoglobin 11.1 GM/DL Hematocrit 32.6 % Mean Corpuscular Volume 81.8 FL Mean Corpuscular Hemoglobin 27.9 PG Mean Corpuscular Hemoglobin 34.2 % Concent Red Cell Distribution Width 14.3 % Platelet Count 315 TH/MM3 Mean Platelet Volume 8.3 FL Neutrophils (%) (Auto) 80.6 % Lymphocytes (%) (Auto) 8.1 % Monocytes (%) (Auto) 9.6 % Eosinophils (%) (Auto) 0.9 % Basophils (%) (Auto) 0.8 % Neutrophils # (Auto) 13.1 TH/MM3 Lymphocytes # (Auto) 1.3 TH/MM3 Monocytes # (Auto) 1.6 TH/MM3 Eosinophils # (Auto) 0.1 TH/MM3 Basophils # (Auto) 0.1 TH/MM3 CBC Comment AUTO DIFF Differential Total Cells 100 Counted Neutrophils % (Manual) 65 % Band Neutrophils % 20 % Lymphocytes % 7 % Monocytes % 6 % Eosinophils % 1 % Neutrophils # (Manual) 14.0 TH/MM3 Metamyelocytes 1 % Differential Comment FINAL DIFF MANUAL Platelet Estimate NORMAL Platelet Morphology Comment NORMAL Red Cell Morphology Comment NORMAL Sodium Level 137 MEQ/L Potassium Level 4.0 MEQ/L Chloride Level 104 MEQ/L Carbon Dioxide Level 24.1 MEQ/L Anion Gap 9 MEQ/L Blood Urea Nitrogen 20 MG/DL Creatinine 1.34 MG/DL Estimat Glomerular Filtration 72 ML/MIN Rate Random Glucose 111 MG/DL Calcium Level 9.1 MG/DL Phosphorus Level 4.4 MG/DL Magnesium Level 2.1 MG/DL Total Bilirubin 0.7 MG/DL Aspartate Amino Transf 151 U/L (AST/SGOT) Alanine Aminotransferase 177 U/L (ALT/SGPT) Alkaline Phosphatase 217 U/L Total Protein 7.3 GM/DL Albumin 1.8 GM/DL Blood Gas Puncture Site ART LINE Blood Gas Patient Temperature 98.6 Blood Gas HCO3 22 mmol/L Blood Gas Base Excess -1.2 mmol/L Blood Gas Oxygen Saturation 94 % Arterial Blood pH 7.44 Arterial Blood Partial 33 mmHg Pressure CO2 Arterial Blood Partial 89 mmHg Pressure O2 Arterial Blood Oxygen Content 15.4 Vol % Arterial Blood 1.1 % Carboxyhemoglobin Arterial Blood Methemoglobin 1.1 % Blood Gas Hemoglobin 11.5 G/DL Oxygen Delivery Device VENTILATOR Blood Gas Ventilator Setting PRVC/AC Blood Gas Inspired Oxygen 30 % 09/09/16 09/09/16 09/10/16 15:00 23:00 07:00 Intake Total 1207 ml 1299 ml 1088 ml Output Total 1300 ml 1375 ml 1175.0 ml Balance -93 ml -76 ml -87.0 ml Intake IV Total 1077 ml 1075 ml 1088 ml Tube Feeding 104 ml 0 ml Other 130 ml 120 ml 0 ml Output Urine Total 1250 ml 1375 ml 1075 ml Gastric Drainage Total 50 ml Tube Feeding Residual Discard 75.0 ml Drainage Total 0 ml 25 ml # Bowel Movements 0 1 1 Medical Decision Making Impression and Plan A: 40 y/o M with Large right cerebellar hemisphere spontaneous hemorrhage likely hypertensive with no underlying vascular abnormality noted. He is status post suboccipital craniectomy with intracranial hemorrhage evacuation and ventriculostomy placement. His ICPs have been normal at 3 with ventric clamped. P: Continue with blood pressure control Continue with neuro checks Continue with critical care. Edgar Wallace Sep 10, 2016 08:58
[2016-09-10] MEDS: SODIUM CHLORIDE 0.9% FLUSH 10 ML FLUSH SCH ×2 (09:00→21:20)
[2016-09-10] MEDS: BISACODYL 10 MG SUPP RECTAL SCH (09:00)
--- NOTE | 2016-09-10 09:20 | HHI.CCPN ---
Subjective Remarks/Hospital Course Hospital Course: 40-year-old male with reportedly no significant past medical history who was at work today and was taking out the garbage when he developed "the worse headache of his life". He was screaming in pain and [facility] was called. Upon [facility] arrival his GCS was 13 but rapidly deteriorated to GCS 3. He vomited. He was intubated on the scene without any drugs. CT brain demonstrated a large right cerebellar hemorrhage (4.9 x 5.7 cm) with effacement of the fourth ventricle. He has a very poor neurologic exam with absence of pupillary, corneal, gag, cough, oculocephalic reflexes. Not overbreathing vent but did not formally test apnea. Dr. Ovalles discussed with and she is requesting operative management. He is being taken for emergent CT angiogram and then to OR for evacuation by Dr. Ovalles. Subjective: 09/02: decompressive craniectomy overnight. per report, when he returned from the OR he apparently had a +gag. this morning remains encephalopathic. 06/06: vomiting on sedation vacation yesterday. cardene off. icp's controlled: 9 this AM. still poor neurologic exam. 09/04: on goal TF. no additional vomiting. following commands RUE, RLE. tracking. EVD at 15 cmH2O. ICP controlled. 09/05: still weakly following commands. ICP slightly elevated at 16-17 today. sedation vacation patient gets agitated, tachycardic, hypertensive. sputum growing pansensitive enterobacter. 09/06: still weakly following commands. ICP high overnight for ~30 minutes, but then improved. EVD challenged to 20 cmH2O today. still tachycardic and hypertensive. 09/07: still follows. ICP better controlled. EVD at [address] stable. 09/08: Delayed follow. Agitated when sedation lowered. Vomited early; will place NG to suction. Reglan already on board. We'd like to get to trial extubation for 's sake. Failed SBT today - will try again at higher PS. 09/09 no evidence overnight, no more vomiting, discussed with for tracheostomy placement 09/10: Tracheostomy this morning, CXR fine. DHT in good position, advance 10 cm. Objective Vital Signs Date Time Temp Pulse Resp B/P Pulse Ox O2 Delivery O2 Flow Rate FiO2 09/10/16 08:00 98.6 111 26 134/72 98 09/10/16 07:58 50 09/10/16 07:00 Mechanical Ventilator Intake and Output 09/09/16 09/09/16 09/10/16 08:00 16:00 00:00 Intake Total 765 ml 1207 ml 1299 ml Output Total 3150 ml 1300 ml 1450.0 ml Balance -2385 ml -93 ml -151.0 ml Result Diagram: 09/10/165 09/10/165 Other Results Microbiology Date/Time Procedure Status Source Growth 09/07/16 10:55 Gram Stain - Final Complete Sputum Endotracheal 09/07/16 10:55 Sputum Culture - Final Complete Klebsiella Pneumoniae Enterobacter Aerogenes Laboratory Tests Test 09/10/16 04:25 Blood Gas Puncture Site ART LINE Blood Gas Patient Temperature 98.6 Blood Gas HCO3 22 mmol/L (22-26) Blood Gas Base Excess -1.2 mmol/L (-2-2) Blood Gas Oxygen Saturation 94 % (90-100) Arterial Blood pH 7.44 (7.380-7.420) Arterial Blood Partial 33 mmHg (38-42) Pressure CO2 Arterial Blood Partial 89 mmHg Pressure O2 (61-120) Arterial Blood Oxygen Content 15.4 Vol % (12.0-20.0) Arterial Blood 1.1 % (0-4) Carboxyhemoglobin Arterial Blood Methemoglobin 1.1 % (0-2) Blood Gas Hemoglobin 11.5 G/DL (12.0-16.0) Oxygen Delivery Device VENTILATOR Blood Gas Ventilator Setting PRVC/AC Blood Gas Inspired Oxygen 30 % Objective Remarks GENERAL: male, orotracheally intubated. critically ill. SKIN: Warm and dry. HEAD: wrapped in bandage , clean and dry. EYES: No scleral icterus. ENT: No nasal bleeding or discharge. Mucous membranes pink and moist. NECK: Trachea midline.Orally intubated. CARDIOVASCULAR: . normal rate, regular rhythm. No JVD. RESPIRATORY: PRVC, fio2 40%. equal chest rise. Few mobile secretions. GASTROINTESTINAL: Abdomen soft, non-tender, nondistended. BS active. : Kumar in place MSK: No obvious deformity. No edema. Well perfused. NEUROLOGICAL: Pupils 2 mm, reactive. + cough, gag. FC delayed RUE, RLE. Remains flaccid on left. A/P Assessment and Plan Assessment: 40yM with large posterior fossa IPH now s/p decompressive posterior fossa craniectomy 09/01. encephalopathy slowly improving. still very poor prognosis given size and location of the bleed. goals are aggressive. palliative care consulted. I do not think he will be able to protect his airway. we will attempt sedation vacation and SBT, but if he fails, will plan to pursue tracheostomy. neuro exam stable. Head CT stable. Hypertension persists, and is difficult to control despite multiple anti-hypertensives. ICP somewhat improved. NEURO: Acute cerebellar hemorrhage (ICH Score 4) CT brain 09/01/16 - 4.9 x 5.3 cm right cerebellar hemorrhage with effacement of the fourth ventricle. CTA 09/01/16 - No e/o vascular abnormality. s/p Suboccipital craniectomy, cerebellar hemorrhage evacuation, ventriculostomy by Dr. Ovalles 09/01/16 Ventric at + 20 cm H20 per NSG Continue Keppra 500 mg IV every 12 d/c 3%. Maintain normothermia with tylenol/cooling blanket prn temp >100.4. Target RASS -1, patient comfort and vent synchrony, frequent neuro checks RESP: Acute hypoxic and hypercarbic respiratory failure Aspiration Intubated at the scene by [facility] with no sedation End tidal CO2 monitoring. Target PaCO2 35-40. Duoneb q6 hours; Albuterol q2 hours prn wheezing Discussed with tracheostomy option Eneterobacter, Pseudomonas in sputum -> sens to ceftriaxone, q8h dosing CV: Malignant Hypertension Sinus tachycardia Labetalol and hydralazine prn SBP <150. Nicardipine to maintain systolic blood pressure less than 150 lopressor 5mg iv q4h prn for HR > 90. GI: Vomiting- resolved. Zofran 4 mg IV q6 hours TF at goal. bowel regimen. FEN/RENAL: Renal insufficiency, unknown baseline creatinine Hypokalemia ICU electrolyte protocol Kumar in place due to critically ill patient in need of accurate I/O monitoring and at risk for urinary obstruction Monitor I/O and creatinine Monitor electrolytes and replace as indicated per ICU electively replacement protocol. ID: sputum growing enterobacter. Large amount of sputum production and e/o aspiration. Unasyn 3 gram IV q6 hours. will continue out 7 day course (anticipated stop date 09/07, today) resend blood cultures today, u/a, sputum. still plan on d/c abx today, but if he spikes a fever, will broaden him to empiric coverage. HEME: Monitor CBC, post op CBC pending. Coags WNL. Patient was not on anticoagulant or antiplatelet therapy. ENDO: Acute stress hyperglycemia Monitor bedside glucose and initiate low-dose insulin sliding scale as indicated PROPH: SCDs and teds for DVT prophylaxis. Pharmacologic DVT prophylaxis is contraindicated due to acute cerebellar hemorrhage. Protonix 40 mg IV daily for stress ulcer prophylaxis. ACCESS: right radial art line 09/04, left SC TLC 09/04. still requires both. Dispo: remain in the ICU. very critically ill s/p spontaneous cerebellar bleed. Critical Care: The total critical care time was 37 minutes aside from procedures. Keanu Jama MD Sep 10, 2016 09:20
[2016-09-10] MEDS ORDERED: cefTRIAXone INJ 1,000 MG in SODIUM CHLORIDE 0.9% INJ 100 ML IV SCH (09:30)
[2016-09-10] MEDS: cefTRIAXone INJ 1,000 MG in SODIUM CHLORIDE 0.9% INJ 100 ML IV SCH ×2 (11:10→22:27)
[2016-09-10] MEDS ORDERED: SODIUM CHLORIDE 0.9% FLUSH 10 ML FLUSH IV FLUSH PRN (14:45)
--- NOTE | 2016-09-10 16:09 | RADRPT ---
EXAM DATE/TIME: 09/10/2016 15:08 [facility] COMPARISON: CHEST SINGLE AP, September 10, 2016, 14:51. INDICATIONS : Dobhoff placement MEDICAL HISTORY : Stroke. Hypertension SURGICAL HISTORY : None. ENCOUNTER: Subsequent ACUITY: 1 day PAIN SCORE: 0/10 LOCATION: Abdomen FINDINGS: Tracheostomy tube, right-sided PICC line and left IJ central line are stable in position. Interval re positioning of nasoenteric feeding type catheter with tip now in the distal stomach at the junction o f the duodenal bulb. The remainder of the exam is unchanged from earlier today. CONCLUSION: 1. Interval repositioning of feeding type nasoenteric catheter with tip now in the distal stomach at the junction of the duodenal bulb. Shady Shelby MD on September 10, 2016 at 16:06 Board Certified Radiologist. This report was verified electronically.
--- NOTE | 2016-09-10 16:16 | RADRPT ---
EXAM DATE/TIME: 09/10/2016 14:51 [facility] COMPARISON: CHEST SINGLE AP, September 10, 2016, 6:31. INDICATIONS : Picc line placement. MEDICAL HISTORY : Stroke. high blood presssure. SURGICAL HISTORY : None. ENCOUNTER: Initial ACUITY: 1 week PAIN SCORE: Non-responsive. LOCATION: Bilateral chest FINDINGS: Single AP view of the chest. Tracheostomy tube, left IJ central venous catheter, and feeding tube rem ain in place. Feeding tube tip is now in the distal esophagus. Right-sided PICC line is now seen with the tip in the region of the distal SVC. Confluent bilateral lower lung zone predominant pulmonary p arenchymal opacity unchanged. No evidence of pneumothorax. CONCLUSION: 1. Feeding tube has migrated proximally with the tip now in the distal esophagus. 2. Right-sided PICC line tip in the region of the distal SVC. 3. No change in bilateral pulmonary opacity. Viktor Davidson MD on September 10, 2016 at 16:13 Board Certified Radiologist. This report was verified electronically.
[2016-09-10] MEDS: fentaNYL 2,500 MCG/NS 250 ML IV SCH (21:19)
[2016-09-10] MEDS: LABETALOL HCL 100 MG/20 ML VIAL IV PUSH PRN (22:40)
[2016-09-10] MEDS: ACETAMINOPHEN 1000 MG/100 ML VIAL IV PRN (23:13)
[2016-09-11] VITALS (18 sets, daily range): BP systolic 119–138; BP diastolic 61–86; PULSE 99–118; RESP 20–24; TEMP 97.3–101.1; O2SAT 97–100
[2016-09-11] MEDS: niCARdipine INJ 25 MG in SODIUM CHLOR 0.9% 250 ML INJ 250 ML IV SCH ×5 (00:39→21:14)
[2016-09-11] MEDS: PROPOFOL 1000 MG/100 ML INJ 100 ML IV SCH ×3 (00:56→12:58)
[2016-09-11] MEDS: oxyCODONE HCL ORAL CONC 20 MG/ML SYRINGE PO SCH ×6 (00:56→20:28)
[2016-09-11] MEDS: INSULIN ASPART SUPPLEMENTAL SCALE SQ SCH ×4 (04:00→22:00)
[2016-09-11] MEDS: CHLORHEXIDINE GLUCONATE 2 % 1 PACK (2 CLOTHS) TOP SCH (04:00)
[2016-09-11] MEDS: METOCLOPRAMIDE HCL SYRUP 10 MG/10 ML UDC PO SCH ×4 (06:26→20:28)
[2016-09-11] MEDS: NS + KCL 20 MEQ INJ 1,000 ML IV SCH ×2 (06:26→16:10)
[2016-09-11] MEDS: BISACODYL 10 MG SUPP RECTAL SCH (07:49)
[2016-09-11] MEDS: CHLORHEXIDINE 0.12% (ORAL KIT) 15 ML CUP MT SCH ×2 (08:00→20:28)
[2016-09-11] MEDS: SODIUM CHLORIDE 0.9% FLUSH 10 ML FLUSH SCH ×2 (08:08→20:27)
[2016-09-11] MEDS: SODIUM CHLORIDE 0.9% FLUSH 10 ML FLUSH IV FLUSH SCH (08:08)
[2016-09-11] MEDS: PANTOPRAZOLE SODIUM 40 MG VIAL IV SCH (08:09)
[2016-09-11] MEDS: levETIRAcetam INJ 500 MG in SODIUM CHLORIDE 0.9% INJ 100 ML IV SCH ×2 (08:09→20:27)
[2016-09-11] MEDS: POLYETHYLENE GLYCOL 17 GM PKG PO SCH ×2 (08:09→20:27)
[2016-09-11] MEDS: DOCUSATE SODIUM 50 MG/SENNA 8.6 MG TAB PO SCH ×2 (08:10→20:27)
--- NOTE | 2016-09-11 08:50 | HHI.NSPN ---
History Chief Complaint: ICH s/p suboccipital craniectomy for evacuation. Interval History 40-year-old gentleman postop day #1 status post right suboccipital craniectomy with cerebellar hemorrhage evacuation and ventriculostomy placement. His ICPs have been normal postoperatively. When sedation was held he vomited and was noted to have some eye opening and right-sided movements per the nursing staff. 09/03/16: Pt sedated on Diprivan. Decreased by RN and pt reported tracked to right side. at bedside states he had some spontaneous movement in RUE and RLE. Pts bp increases and requires sedation and anti hypertensive meds. 09/04/16: Pt sedated on Diprivan. When sedation decreased by RN patient opens both eyes and follow commands on the right side. He has left hemiplegia. Patient intubated and sedated. 09/07/16: Pt on sedation vacation currently this morning. He opens both eyes. Pupils 4mm bilaterally reactive bilaterally. Follows simple commands right side , has delayed response. Ventriculostomy drain in place at 20 cmH20, ICP14. Follow up CT head reviewed stable. 09/08/16: Pt sedated on Diprivan. Had episode of vomiting this morning. Follows intermittently right side. Left hemiparesis. Ventriculostomy drain in place at [id number]. ICP 7. 09/10/16: Pt sedation held this morning RN and pt coughing on vent and turned back on. Trach was done this morning. Not following commands, sedated. Ventric clamped ICP 3. 09/11/16: Pt on Diprivan and Fentanyl drips. Not opening eyes or following commands. Trach in place on Vent. Ventriculostomy drain in place ICPs remain normal, 3. System Review Comments Not able to obtain given clinical condition. Exam Results Vital Signs Date Time Temp Pulse Resp B/P Pulse Ox O2 Delivery O2 Flow Rate FiO2 09/11/16 07:58 98 45 09/11/16 06:00 110 09/11/16 04:00 97.3 24 119/86 09/10/16 19:00 Mechanical Ventilator Intake and Output 6/04/2809/10/16 09/11/16 08:00 16:00 00:00 Intake Total 1088 ml 1084 ml 1557 ml Output Total 1100 ml 1765 ml 1800 ml Balance -12 ml -681 ml -243 ml Physical Examination Resp: CTA bilaterally. Pressure controlled rate 20 PEEP 5 FiO2 45%. Heart: Mild tachycardia. No murmurs. Abd: Soft positive bs but diminished Skin: Scalp incisions are clean and dry and intact SCDs in place. Muscle: Not following commands currently requires sedation on Diprivan and Fentanyl drips for vent. Neuro: Sedated on Diprivan and fentanyl drips. Pupils 2 mm reactive. Ventricular remains clamped, ICP 3. Positive cough and gag. Lab, Micro, Other Results Last Impressions Chest X-Ray 09/10/16 06 Signed Impressions: Service Date/Time: September 02:50 - CONCLUSION: No significant change Al Hernandez MD Abdomen X-Ray 09/10/16 0000 Signed Impressions: Service Date/Time: September 06:34 - CONCLUSION: Feeding tube tip in the stomach Al Hernandez MD Head CT [id number]/[id number] Signed Impressions: Service Date/Time: Wednesday, September 07, 2016 06:05 - CONCLUSION: Stable brain appearance. Al Hernandez MD Neck CTA 09/01/162019 Signed Impressions: Service Date/Time: Thursday, September 01, 2016 20:55 - CONCLUSION: Unremarkable exam. The carotid arteries are intact. Ag Saxena MD Head CTA 09/01/162019 Signed Impressions: Service Date/Time: Thursday, September 01, 2016 20:55 - CONCLUSION: The etiology of the patient's right cerebellar h hemorrhage is not identified and there appears to be some infiltrates and possible pleural effusions in the upper lungs that are visualized. Erika Bob MD 09/10/16 09/10/16 09/11/16 15:00 23:00 07:00 Intake Total 1084 ml 1557 ml 1785 ml Output Total 1765 ml 1800 ml 2475 ml Balance -681 ml -243 ml -690 ml Intake IV Total 995 ml 1161 ml 1491 ml Tube Feeding 89 ml 276 ml 234 ml Other 120 ml 60 ml Output Urine Total 1750 ml 1800 ml 2475 ml Drainage Total 15 ml 0 ml 0 ml # Bowel Movements 1 0 0 Medical Decision Making Impression and Plan A: 40 y/o M with Large right cerebellar hemisphere spontaneous hemorrhage likely hypertensive with no underlying vascular abnormality noted. He is status post suboccipital craniectomy with intracranial hemorrhage evacuation and ventriculostomy placement. His ICPs have been normal at 3 with ventric clamped. P: Continue with blood pressure control Continue with neuro checks Continue with critical care. Edgar Wallace Sep 11, 2016 08:50
[2016-09-11] MEDS: METOPROLOL TARTRATE 5 MG/5 ML VIAL IV PUSH PRN (08:54)
[2016-09-11] MEDS ORDERED: LIDOCAINE 1%/EPINEPHrine 1:100,000 SOLN 30 ML VIAL INFIL ONE (10:45)
[2016-09-11] MEDS: cefTRIAXone INJ 1,000 MG in SODIUM CHLORIDE 0.9% INJ 100 ML IV SCH ×2 (10:52→22:58)
[2016-09-11] MEDS ORDERED: EPINEPHrine HCL (1:1000) 1 MG/ML VIAL OTHER ONE (11:00)
[2016-09-11] MEDS ORDERED: LIDOCAINE HCL 1% 30 ML VIAL INFIL ONE (11:00)
[2016-09-11] MEDS ORDERED: LIDOCAINE 2%/EPINEPHrine 1:100,000 30ML MDV ONE (11:04)
--- NOTE | 2016-09-11 11:20 | HHI.CCPN ---
Subjective Remarks/Hospital Course Hospital Course: 40-year-old male with reportedly no significant past medical history who was at work today and was taking out the garbage when he developed "the worse headache of his life". He was screaming in pain and EVAC was called. Upon EVAC arrival his GCS was 13 but rapidly deteriorated to GCS 3. He vomited. He was intubated on the scene without any drugs. CT brain demonstrated a large right cerebellar hemorrhage (4.9 x 5.7 cm) with effacement of the fourth ventricle. He has a very poor neurologic exam with absence of pupillary, corneal, gag, cough, oculocephalic reflexes. Not overbreathing vent but did not formally test apnea. Dr. Ovalles discussed with and she is requesting operative management. He is being taken for emergent CT angiogram and then to OR for evacuation by Dr. Ovalles. Subjective: 09/02: decompressive craniectomy overnight. per report, when he returned from the OR he apparently had a +gag. this morning remains encephalopathic. 06/06: vomiting on sedation vacation yesterday. cardene off. icp's controlled: 9 this AM. still poor neurologic exam. 09/04: on goal TF. no additional vomiting. following commands RUE, RLE. tracking. EVD at 15 cmH2O. ICP controlled. 09/05: still weakly following commands. ICP slightly elevated at 16-17 today. sedation vacation patient gets agitated, tachycardic, hypertensive. sputum growing pansensitive enterobacter. 09/06: still weakly following commands. ICP high overnight for ~30 minutes, but then improved. EVD challenged to 20 cmH2O today. still tachycardic and hypertensive. 09/07: still follows. ICP better controlled. EVD at [address] stable. 09/08: Delayed follow. Agitated when sedation lowered. Vomited early; will place NG to suction. Reglan already on board. We'd like to get to trial extubation for 's sake. Failed SBT today - will try again at higher PS. 09/09 no evidence overnight, no more vomiting, discussed with for tracheostomy placement 09/10: Tracheostomy this morning, CXR fine. DHT in good position, advance 10 cm. 09/11: Comfortable with trach; site clean. Talked with parents at bedside. Objective Vital Signs Date Time Temp Pulse Resp B/P Pulse Ox O2 Delivery O2 Flow Rate FiO2 09/11/16 10:00 104 09/11/16 08:00 50 09/11/16 08:00 99.7 22 136/70 99 09/11/16 07:00 Mechanical Ventilator Intake and Output 09/10/16 09/10/16 09/11/16 08:00 16:00 00:00 Intake Total 1088 ml 1084 ml 1557 ml Output Total 1100 ml 1765 ml 1800 ml Balance -12 ml -681 ml -243 ml Result Diagram: 09/10/1640409/10/16404 Objective Remarks GENERAL: male. critically ill. SKIN: Warm and dry. HEAD: wrapped in bandage , clean and dry. EYES: No scleral icterus. ENT: No nasal bleeding or discharge. Mucous membranes pink and moist. NECK: Trachea midline. New trach, site clean, dry. CARDIOVASCULAR: . normal rate, regular rhythm. No JVD. No m,r. RESPIRATORY: PRVC, fio2 35%. equal chest rise. Mobile secretions. GASTROINTESTINAL: Abdomen soft, non-tender, nondistended. BS active. : Kumar in place MSK: No obvious deformity. No edema. Well perfused. NEUROLOGICAL: Pupils 2 mm, reactive. + cough, gag. FC delayed RUE, RLE. Remains flaccid on left. A/P Assessment and Plan Assessment: 40yM with large posterior fossa IPH now s/p decompressive posterior fossa craniectomy 09/01. encephalopathy slowly improving. still very poor prognosis given size and location of the bleed. goals are aggressive. palliative care consulted. I do not think he will be able to protect his airway. we will attempt sedation vacation and SBT, but if he fails, will plan to pursue tracheostomy. neuro exam stable. Head CT stable. Hypertension persists, and is difficult to control despite multiple anti-hypertensives. ICP somewhat improved. NEURO: Acute cerebellar hemorrhage (ICH Score 4) CT brain 09/01/16 - 4.9 x 5.3 cm right cerebellar hemorrhage with effacement of the fourth ventricle. CTA 09/01/16 - No e/o vascular abnormality. s/p Suboccipital craniectomy, cerebellar hemorrhage evacuation, ventriculostomy by Dr. Ovalles 09/01/16 Ventric at + 20 cm H20 per NSG Continue Keppra 500 mg IV every 12 d/c 3%. Maintain normothermia with tylenol/cooling blanket prn temp >100.4. Target RASS -1, patient comfort and vent synchrony, frequent neuro checks RESP: Acute hypoxic and hypercarbic respiratory failure Aspiration Intubated at the scene by EVAC with no sedation End tidal CO2 monitoring. Target PaCO2 35-40. Duoneb q6 hours; Albuterol q2 hours prn wheezing Discussed with tracheostomy option Enterobacter, Klebsiella in sputum -> sens to ceftriaxone, q12h dosing started 09/10 CV: Malignant Hypertension Sinus tachycardia Labetalol and hydralazine prn SBP <150. Nicardipine to maintain systolic blood pressure less than 150 lopressor 5mg iv q4h prn for HR > 90. GI: Vomiting- resolved. Zofran 4 mg IV q6 hours TF at goal. bowel regimen. FEN/RENAL: Renal insufficiency, unknown baseline creatinine Hypokalemia ICU electrolyte protocol Kumar in place due to critically ill patient in need of accurate I/O monitoring and at risk for urinary obstruction Monitor I/O and creatinine Monitor electrolytes and replace as indicated per ICU electively replacement protocol. ID: sputum growing enterobacter. Large amount of sputum production and e/o aspiration. Unasyn 3 gram IV q6 hours. will continue out 7 day course (anticipated stop date 09/07, today) resend blood cultures today, u/a, sputum. still plan on d/c abx today, but if he spikes a fever, will broaden him to empiric coverage. HEME: Monitor CBC, post op CBC pending. Coags WNL. Patient was not on anticoagulant or antiplatelet therapy. ENDO: Acute stress hyperglycemia Monitor bedside glucose and initiate low-dose insulin sliding scale as indicated PROPH: SCDs and teds for DVT prophylaxis. Pharmacologic DVT prophylaxis is contraindicated due to acute cerebellar hemorrhage. Protonix 40 mg IV daily for stress ulcer prophylaxis. ACCESS: right radial art line 09/04, left SC TLC 09/04. still requires both. Overall impression: Remain in the ICU. Remains critically ill s/p spontaneous cerebellar bleed. Unable to wean ventilator. Critical care 36 mins Keanu Jama MD Sep 11, 2016 11:20
[2016-09-11] MEDS: fentaNYL 2,500 MCG/NS 250 ML IV SCH (13:10)
[2016-09-11] MEDS: ACETAMINOPHEN 1000 MG/100 ML VIAL IV PRN (14:05)
--- NOTE | 2016-09-11 14:20 | HHI.HCPN ---
Reason for visit a. To assist with evaluation and management of symptoms including: Shortness of breath and debility. b. To assist medical decision maker(s) with: better understanding of current medical conditions; weighing benefits/burdens of medical treatment options; making medical treatment decisions. . Subjective/Interval History Palliative care f/u for emotional support and for clarifications of goals of care. Mr. Isabel is a 40-year-old male with no significant past medical history who presented to the ED via EMS on 09/01/16 with large acute high density hemorrhage in the right cerebellar hemisphere with extension into the isaac, 5.3cm x 4.9cm in size. Patient status post decompressive craniectomy. Patient seen in ICU. Patient sedated, intubated on mechanical ventilation. Unresponsive to verbal or tactile stimuli during my visit. Max temp today 101.1. Slightly tachycardic with heart rate in the low 110s. Stable blood pressure. Remains on propofol and fentanyl drip. Laboratory today revealing WBC 16.3, Hgb 11.1, platelet count 315. Sodium 137, potassium 4.0, BUN/ creatinine 20/1.34. Liver enzymes elevated. Total bilirubin 0.7, AST 151, ALT 177, alkaline phosphatase 217. Albumin 1.8. Most recent chest x-ray 09/10/16 showing no significant changes. 09/07/16 sputum culture revealing Klebsiella and Enterobacter aerogenes. Patient status post tracheostomy on 09/10/16. Ventriculostomy drain discontinued today. Case discussed with bedside RN, Payton. Patient not tolerating SBT, lasted 30 minutes today secondary to hypertension. Patient with what appears abdominal hiccups, on Thorazine as needed. Patient's parents at bedside this morning, they had a chance to speak with dependency director. Patient's Jaci working. Family friend at bedside. Case discussed with reporting developerosmani Pierce, who has been f/u with patient's frequently. Patient's daughter Myriam Isabel, currently in [place] working on getting a visa to the . Palliative care has assisted in providing letter for visa request. Will continue to follow throughout hospitalization to provide emotional and social support. . Family/friend interactions Seen interval note. . Advance Directives Living Will: Never completed Health Care Surrogate: Never completed Durable Power of Electroencephalographic Technician: Never completed Advance Directive Specifics Health Care Surrogate(s): No living will or healthcare surrogate designation completed. As per [place] law, patient's Jaci Isabel is healthcare proxy. . Documented care wishes: No living will completed. . Significant change in goals: Full code. electing continuation of aggressive care. Objective Vital Signs Date Time Temp Pulse Resp B/P Pulse Ox O2 Delivery O2 Flow Rate FiO2 09/11/16 12:00 98.4 112 20 126/81 100 09/11/16 12:00 113 09/11/16 12:00 50 09/11/16 11:54 97 40 09/11/16 10:00 104 09/11/16 08:00 50 09/11/16 08:00 99.7 118 22 136/70 99 09/11/16 08:00 103 09/11/16 07:58 98 45 09/11/16 07:58 45 09/11/16 07:00 99 Mechanical Ventilator 50 09/11/16 06:00 110 09/11/16 04:04 98 30 09/11/16 04:00 50 09/11/16 04:00 99 09/11/16 04:00 97.3 99 24 119/86 100 09/11/16 02:00 100 09/11/16 01:56 24 09/11/16 01:25 99 30 09/11/16 00:00 116 09/11/16 00:00 50 09/11/16 00:00 101.1 116 22 138/84 100 09/10/16 22:00 116 09/10/16 20:23 98 30 09/10/16 20:00 116 09/10/16 20:00 100.0 116 20 138/83 100 09/10/16 20:00 50 09/10/16 19:00 100 Mechanical Ventilator 50 09/10/16 18:00 111 09/10/16 16:00 98.6 110 20 129/72 97 09/10/16 16:00 50 09/10/16 16:00 110 09/10/16 15:49 97 50 Intake & Output 09/11/16 09/11/16 06:59 18:59 Intake Total 3342 ml Output Total 4275 ml Balance -933 ml Intake IV Total 2652 ml Tube Feeding 510 ml Other 180 ml Output Urine Total 4275 ml Drainage Total 0 ml # Bowel Movements 0 Physical Exam CONSTITUTIONAL/GENERAL: This is an adequately nourished patient, in no apparent distress. On mechanical ventilation via tracheostomy. TUBES/LINES/DRAINS: PIV's, arterial line, tracheostomy, NG tube, right EJ, left subclavian central line, Kumar catheter, SCDs, bilateral soft wrist restraints. SKIN: No jaundice, rashes, or lesions. No wounds seen anteriorly. Skin temperature appropriate. Not diaphoretic. HEAD: Atraumatic. Normocephalic. EYES: No scleral icterus. No injection or drainage. ENT: Unable to evaluate hearing secondary to clinical condition. Nose without bleeding or purulent drainage. Protruding tongue. Moist oral mucosa. CARDIOVASCULAR: Tachycardic with heart rate in the 110s.Peripheral pulses symmetric. RESPIRATORY/CHEST: Symmetric, unlabored respirations. Coarse breath sounds bilaterally. On mechanical ventilation via tracheostomy. 40% FiO2. GASTROINTESTINAL: Abdomen soft, round. Bowel sounds present. GENITOURINARY: Without palpable bladder distension. Kumar catheter in place. MUSCULOSKELETAL: Extremities without clubbing, cyanosis. Edema to bilateral lower extremities. No mottling or clubbing. NEUROLOGICAL: Sedated and intubated on mechanical ventilation. Unresponsive to verbal or tactile stimuli during my assessment. PSYCHIATRIC: Unable to evaluate secondary to clinical condition. . Diagnostic Tests Laboratory Laboratory Tests Test 09/09/16 09/10/16 09/10/16 01:50 04:05 04:25 White Blood Count 14.8 TH/MM3 16.3 TH/MM3 (4.0-11.0) (4.0-11.0) Red Blood Count 4.23 MIL/MM3 3.99 MIL/MM3 (4.50-5.90) (4.50-5.90) Hemoglobin 11.6 GM/DL 11.1 GM/DL (13.0-17.0) (13.0-17.0) Hematocrit 35.0 % 32.6 % (39.0-51.0) (39.0-51.0) Mean Corpuscular Volume 82.6 FL 81.8 FL (80.0-100.0) (80.0-100.0) Mean Corpuscular Hemoglobin 27.4 PG 27.9 PG (27.0-34.0) (27.0-34.0) Mean Corpuscular Hemoglobin 33.2 % 34.2 % Concent (32.0-36.0) (32.0-36.0) Red Cell Distribution Width 14.9 % 14.3 % (11.6-17.2) (11.6-17.2) Platelet Count 276 TH/MM3 315 TH/MM3 (150-450) (150-450) Mean Platelet Volume 7.8 FL 8.3 FL (7.0-11.0) (7.0-11.0) Sodium Level 139 MEQ/L 137 MEQ/L (136-145) (136-145) Potassium Level 4.3 MEQ/L 4.0 MEQ/L (3.5-5.1) (3.5-5.1) Chloride Level 103 MEQ/L 104 MEQ/L (98-107) (98-107) Carbon Dioxide Level 24.9 MEQ/L 24.1 MEQ/L (21.0-32.0) (21.0-32.0) Anion Gap 11 MEQ/L (5-15) 9 MEQ/L (5-15) Blood Urea Nitrogen 16 MG/DL (7-18) 20 MG/DL (7-18) Creatinine 1.28 MG/DL 1.34 MG/DL (0.60-1.30) (0.60-1.30) Estimat Glomerular Filtration 76 ML/MIN (>89) 72 ML/MIN (>89) Rate Random Glucose 91 MG/DL 111 MG/DL (74-106) (74-106) Calcium Level 9.1 MG/DL 9.1 MG/DL (8.5-10.1) (8.5-10.1) Neutrophils (%) (Auto) 80.6 % (16.0-70.0) Lymphocytes (%) (Auto) 8.1 % (9.0-44.0) Monocytes (%) (Auto) 9.6 % (0.0-8.0) Eosinophils (%) (Auto) 0.9 % (0.0-4.0) Basophils (%) (Auto) 0.8 % (0.0-2.0) Neutrophils # (Auto) 13.1 TH/MM3 (1.8-7.7) Lymphocytes # (Auto) 1.3 TH/MM3 (1.0-4.8) Monocytes # (Auto) 1.6 TH/MM3 (0-0.9) Eosinophils # (Auto) 0.1 TH/MM3 (0-0.4) Basophils # (Auto) 0.1 TH/MM3 (0-0.2) CBC Comment AUTO DIFF Differential Total Cells 100 Counted Neutrophils % (Manual) 65 % (16-70) Band Neutrophils % 20 % (0-6) Lymphocytes % 7 % (9-44) Monocytes % 6 % (0-8) Eosinophils % 1 % (0-4) Neutrophils # (Manual) 14.0 TH/MM3 (1.8-7.7) Metamyelocytes 1 % (0-1) Differential Comment FINAL DIFF MANUAL Platelet Estimate NORMAL (NORMAL) Platelet Morphology Comment NORMAL (NORMAL) Red Cell Morphology Comment NORMAL (NORMAL) Phosphorus Level 4.4 MG/DL (2.5-4.9) Magnesium Level 2.1 MG/DL (1.5-2.5) Total Bilirubin 0.7 MG/DL (0.2-1.0) Aspartate Amino Transf 151 U/L (15-37) (AST/SGOT) Alanine Aminotransferase 177 U/L (12-78) (ALT/SGPT) Alkaline Phosphatase 217 U/L (45-117) Total Protein 7.3 GM/DL (6.4-8.2) Albumin 1.8 GM/DL (3.4-5.0) Blood Gas Puncture Site ART LINE Blood Gas Patient Temperature 98.6 Blood Gas HCO3 22 mmol/L (22-26) Blood Gas Base Excess -1.2 mmol/L (-2-2) Blood Gas Oxygen Saturation 94 % (90-100) Arterial Blood pH 7.44 (7.380-7.420) Arterial Blood Partial 33 mmHg (38-42) Pressure CO2 Arterial Blood Partial 89 mmHg Pressure O2 (61-120) Arterial Blood Oxygen Content 15.4 Vol % (12.0-20.0) Arterial Blood 1.1 % (0-4) Carboxyhemoglobin Arterial Blood Methemoglobin 1.1 % (0-2) Blood Gas Hemoglobin 11.5 G/DL (12.0-16.0) Oxygen Delivery Device VENTILATOR Blood Gas Ventilator Setting PRVC/AC Blood Gas Inspired Oxygen 30 % Result Diagram: 09/10/1640409/10/16 0405 Imaging Last 48 hours Impressions Chest X-Ray 09/10/16 0600 Signed Impressions: Service Date/Time: September 02:50 - CONCLUSION: No significant change Al Hernandez MD Chest X-Ray 09/10/16 0000 Signed Impressions: Service Date/Time: September 15:08 - CONCLUSION: 1. Interval repositioning of feeding type nasoenteric catheter with tip now in the distal stomach at the junction of the duodenal bulb. Shady Shelby MD Chest X-Ray 09/10/16 0000 Signed Impressions: Service Date/Time: September 14:51 - CONCLUSION: 1. Feeding tube has migrated proximally with the tip now in the distal esophagus. 2. Right- sided PICC line tip in the region of the distal SVC. 3. No change in bilateral pulmonary opacity. Viktor Davidson MD Chest X-Ray 09/10/16 0000 Signed Impressions: Service Date/Time: September 06:31 - CONCLUSION: Tracheostomy in place without definite complication. Slight interval worsening in aeration. Al Hernandez MD Abdomen X-Ray 09/10/16 0000 Signed Impressions: Service Date/Time: September 06:34 - CONCLUSION: Feeding tube tip in the stomach Al Hernandez MD Procedures * 09/11/16 -ventriculostomy discontinued. * 06/10/16 -tracheostomy placement. * 09/04/16 -right arterial line placement * 09/01/16 -Right suboccipital craniectomy with evacuation of cerebellar hemorrhage; right frontal bur hole ventriculostomy placement. . Assessment and Plan Disease Oriented Problem List: (1) Spontaneous intraparenchymal intracranial hemorrhage, acute (2) Acute respiratory failure (3) Malignant hypertension Symptom Scale: (1) Shortness of breath 0-10 Scale: Unable to quantify Comment: Secondary to acute respiratory failure. Patient remains intubated on mechanical ventilation. (2) Pain 0-10 Scale: Unable to quantify Comment: Secondary to recent surgical intervention, hospitalization/bedrest. (3) Vomiting 0-10 Scale: 0 Comment: Currently on Reglan. Pertinent Non-Medical Issues Psychosocial: . Has 2 children. Originally from [place]. Spiritual: Yazdanism holly. Legal: No advance directives completed. Ethical issues impacting care: No advance directives completed. . Important Contacts /HCS Jaci Chalo ([phone]. . Prognosis Mr. Isabel is a 40-year-old male with no significant past medical history who presented on 09/01/16 with large right cerebellar hemisphere hemorrhage with extension into the isaac. He underwent right suboccipital craniectomy with evacuation of cerebellar hemorrhage; right frontal bur hole ventriculostomy placement. Patient at high risk for further complications, continue decline and . Poor prognosis for meaningful functional/neurological recovery. . Code Status: Full Code Plan * CODE STATUS: Full code. * HEALTHCARE DECISION-MAKER: Patient incapacitated secondary to clinical condition, unresponsive -intubated on mechanical ventilation. No advance directives completed. As per [place] law, patient's Jaci Isabel is proxy decision maker. She has accepted this role. * GOALS OF CARE: As per Jaci, continue with aggressive care to include full code, tracheostomy and PEG placement. Reviewed with that patient remains in critical condition, high risk for further complications, continue decline and . Uncertain prognosis for a meaningful functional/neurological recovery at this time. * SYMPTOMS: = Shortness of breath: Multifactorial. Secondary to acute respiratory failure/acute cerebellar hemorrhage. Status post tracheostomy and . Remains on mechanical ventilation. Not tolerating SBT secondary to hypertension. = Pain: Secondary to recent surgical intervention, tracheostomy, bedrest status. Fentanyl drip ongoing. = Vomiting: appears controlled. Patient on Reglan and bowel regimen. * Spiritual services following. Discuss with reporting developer Andy, he has f/u frequently with . * Patient's daughter Myriam Isabel, currently in [place] working on getting a visa to the . Palliative care has assisted in providing letter for visa request. Patient's parents in [facility]. * Case discussed with bedside RN Payton. * Palliative care contact information has been provided to patient's . * Ongoing emotional support and active listening provided to patient's Jaci. * Palliative care will continue to follow-up as needed for further clarifications of goals of care, assist with communication and to provide ongoing emotional and social support throughout this hospitalization. . Time Spent Total Floor Time (mins): 26 (Total time to include review medical records, physical exam, case discussion with bedside RN and reporting developer Stan.) Face to Face Time (mins): 20 >50% Counseling/Coord of Care: Yes Attestation To help prompt me to consider important information that might be impacting today's encounter and assessment, information from prior notes written by myself or my colleagues may have been "brought forward" into today's note. My signature on this note, however, is an attestation that I personally performed the exam, history, and/or decision-making noted today, and, unless otherwise indicated, the interactions with patient, family, and staff as well as the review of records all occurred today. I also attest that the listed assessment and stated plan reflect my best clinical judgment today based on the combination of historical information, prior notes, and today's exam/ interactions. When time spent is documented, it refers only to time spent today by the signer, or if indicated, combined time spent today by collaborating physician/nurse practitioner. Della Gonzalez Sep 11, 2016 14:19
[2016-09-12] VITALS (18 sets, daily range): BP systolic 116–141; BP diastolic 57–81; PULSE 100–125; RESP 16–27; TEMP 97.5–99; O2SAT 96–100
[2016-09-12] MEDS: oxyCODONE HCL ORAL CONC 20 MG/ML SYRINGE PO SCH ×7 (01:00→19:59)
[2016-09-12] MEDS: niCARdipine INJ 25 MG in SODIUM CHLOR 0.9% 250 ML INJ 250 ML IV SCH ×6 (01:04→21:24)
[2016-09-12] MEDS: fentaNYL 2,500 MCG/NS 250 ML IV SCH ×2 (01:07→11:38)
[2016-09-12] MEDS: CHLORHEXIDINE GLUCONATE 2 % 1 PACK (2 CLOTHS) TOP SCH (04:00)
[2016-09-12] MEDS: INSULIN ASPART SUPPLEMENTAL SCALE SQ SCH ×4 (04:00→22:21)
[2016-09-12 04:54] LABS: AUTOMATED NEUTROPHIL # 10.4 TH/MM3 (1.8-7.7); BASOPHIL # 0.1 TH/MM3 (0-0.2); BASOPHIL % 0.4 % (0.0-2.0); EOSINOPHIL # 0.2 TH/MM3 (0-0.4); EOSINOPHIL % 1.7 % (0.0-4.0); HEMATOCRIT 27.4 % (39.0-51.0); LYMPH % 10.3 % (9.0-44.0); LYMPHOCYTE # 1.5 TH/MM3 (1.0-4.8); MEAN CELL VOLUME 83.9 FL (80.0-100.0); MEAN CORPUSCULAR HEMOGLOBIN 27.7 PG (27.0-34.0); MONO % 13.9 % (0.0-8.0); NEUT % 73.7 % (16.0-70.0); PLATELET COUNT 308 TH/MM3 (150-450); RED BLOOD COUNT 3.26 MIL/MM3 (4.50-5.90); RED CELL DISTRIBUTION WIDTH 14.1 % (11.6-17.2); WHITE BLOOD COUNT 14.1 TH/MM3 (4.0-11.0)
[2016-09-12 05:00] LABS: HEMO FLAGS AUTO DIFF
[2016-09-12 05:10] LABS: BICARBONATE 20.7 MEQ/L (21.0-32.0); CALCIUM-PROTEIN CORRECTED 7.7 MG/DL (8.5-10.1); POTASSIUM 5.3 MEQ/L (3.5-5.1); TOTAL BILIRUBIN ADULT 0.4 MG/DL (0.2-1.0)
[2016-09-12] MEDS: PROPOFOL 1000 MG/100 ML INJ 100 ML IV SCH (06:02)
[2016-09-12 06:11] LABS: BANDS 4 % (0-6); EOSINOPHILS 2 % (0-4); MYELOCYTES 1 % (0-0); NEUTROPHIL # MANUAL DIFF 11.3 TH/MM3 (1.8-7.7); POLYS (SEG NEUTROPHILS) 75 % (16-70); WBC DIFF SAMPLE 100
[2016-09-12 06:12] LABS: PLATELET ESTIMATE SMEAR NORMAL (NORMAL); PLATELET MORPHOLOGY NORMAL (NORMAL); SCAN/DIFF FINAL DIFF MANUAL
[2016-09-12] MEDS: METOCLOPRAMIDE HCL SYRUP 10 MG/10 ML UDC PO SCH ×4 (06:42→19:59)
[2016-09-12] MEDS: NS + KCL 20 MEQ INJ 1,000 ML IV SCH (07:07)
[2016-09-12] MEDS: CHLORHEXIDINE 0.12% (ORAL KIT) 15 ML CUP MT SCH ×2 (07:27→20:28)
[2016-09-12] MEDS: POLYETHYLENE GLYCOL 17 GM PKG PO SCH ×2 (08:35→19:57)
[2016-09-12] MEDS: levETIRAcetam INJ 500 MG in SODIUM CHLORIDE 0.9% INJ 100 ML IV SCH ×2 (08:35→19:57)
[2016-09-12] MEDS: PANTOPRAZOLE SODIUM 40 MG VIAL IV SCH (08:36)
[2016-09-12] MEDS: SODIUM CHLORIDE 0.9% FLUSH 10 ML FLUSH SCH ×2 (08:37→19:58)
[2016-09-12] MEDS: SODIUM CHLORIDE 0.9% FLUSH 10 ML FLUSH IV FLUSH SCH (08:37)
[2016-09-12] MEDS: DOCUSATE SODIUM 50 MG/SENNA 8.6 MG TAB PO SCH ×2 (08:38→19:58)
[2016-09-12] MEDS: BISACODYL 10 MG SUPP RECTAL SCH (08:51)
--- NOTE | 2016-09-12 09:31 | HHI.CCPN ---
Subjective Remarks/Hospital Course Hospital Course: 40-year-old male with reportedly no significant past medical history who was at work today and was taking out the garbage when he developed "the worse headache of his life". He was screaming in pain and EVAC was called. Upon EVAC arrival his GCS was 13 but rapidly deteriorated to GCS 3. He vomited. He was intubated on the scene without any drugs. CT brain demonstrated a large right cerebellar hemorrhage (4.9 x 5.7 cm) with effacement of the fourth ventricle. He has a very poor neurologic exam with absence of pupillary, corneal, gag, cough, oculocephalic reflexes. Not overbreathing vent but did not formally test apnea. Dr. Ovalles discussed with and she is requesting operative management. He is being taken for emergent CT angiogram and then to OR for evacuation by Dr. Ovalles. Subjective: 09/02: decompressive craniectomy overnight. per report, when he returned from the OR he apparently had a +gag. this morning remains encephalopathic. 06/06: vomiting on sedation vacation yesterday. cardene off. icp's controlled: 9 this AM. still poor neurologic exam. 09/04: on goal TF. no additional vomiting. following commands RUE, RLE. tracking. EVD at 15 cmH2O. ICP controlled. 09/05: still weakly following commands. ICP slightly elevated at 16-17 today. sedation vacation patient gets agitated, tachycardic, hypertensive. sputum growing pansensitive enterobacter. 09/06: still weakly following commands. ICP high overnight for ~30 minutes, but then improved. EVD challenged to 20 cmH2O today. still tachycardic and hypertensive. 09/07: still follows. ICP better controlled. EVD at [address] stable. 09/08: Delayed follow. Agitated when sedation lowered. Vomited early; will place NG to suction. Reglan already on board. We'd like to get to trial extubation for 's sake. Failed SBT today - will try again at higher PS. 09/09 no evidence overnight, no more vomiting, discussed with for tracheostomy placement 09/10: Tracheostomy this morning, CXR fine. DHT in good position, advance 10 cm. 09/11: Comfortable with trach; site clean. Talked with parents at bedside. 09/12: Breathes spontaneously with good excursions. Objective Vital Signs Date Time Temp Pulse Resp B/P Pulse Ox O2 Delivery O2 Flow Rate FiO2 09/12/16 07:50 100 40 09/12/16 07:00 Mechanical Ventilator 09/12/16 06:00 110 09/12/16 04:00 97.5 16 124/61 Intake and Output 09/11/16 09/11/16 09/12/16 08:00 16:00 00:00 Intake Total 1785 ml 2309 ml 2480 ml Output Total 2475 ml 2000 ml 2150 ml Balance -690 ml 309 ml 330 ml Result Diagram: 09/12/16 0400 09/12/16 0400 Objective Remarks GENERAL: male. critically ill. SKIN: Warm and dry. HEAD: wrapped in bandage , clean and dry. EYES: No scleral icterus. ENT: No nasal bleeding or discharge. Mucous membranes pink and moist. NECK: Trachea midline. New trach, site clean, dry. CARDIOVASCULAR: . normal rate, regular rhythm. No JVD. No m,r. RESPIRATORY:CPAP/PSV, fio2 35%. equal chest rise. Mobile secretions. GASTROINTESTINAL: Abdomen soft, non-tender, nondistended. BS active. : Kumar in place MSK: No obvious deformity. No edema. Well perfused. NEUROLOGICAL: Pupils 2 mm, reactive. + cough, gag. FC delayed RUE, RLE. Remains flaccid on left. A/P Assessment and Plan Assessment: 40yM with large posterior fossa IPH now s/p decompressive posterior fossa craniectomy 09/01. encephalopathy slowly improving. still very poor prognosis given size and location of the bleed. goals are aggressive. palliative care consulted. I do not think he will be able to protect his airway. we will attempt sedation vacation and SBT, but if he fails, will plan to pursue tracheostomy. neuro exam stable. Head CT stable. Hypertension persists, and is difficult to control despite multiple anti-hypertensives. ICP somewhat improved. NEURO: Acute cerebellar hemorrhage (ICH Score 4) CT brain 09/01/16 - 4.9 x 5.3 cm right cerebellar hemorrhage with effacement of the fourth ventricle. CTA 09/01/16 - No e/o vascular abnormality. s/p Suboccipital craniectomy, cerebellar hemorrhage evacuation, ventriculostomy by Dr. Ovalles 09/01/16 Ventric at + 20 cm H20 per NSG Continue Keppra 500 mg IV every 12 d/c 3%. Maintain normothermia with tylenol/cooling blanket prn temp >100.4. Target RASS -1, patient comfort and vent synchrony, frequent neuro checks RESP: Acute hypoxic and hypercarbic respiratory failure Aspiration Intubated at the scene by EVAC with no sedation End tidal CO2 monitoring. Target PaCO2 35-40. Duoneb q6 hours; Albuterol q2 hours prn wheezing Discussed with tracheostomy option Enterobacter, Klebsiella in sputum -> sens to ceftriaxone, q12h dosing started 09/10 Staert trach collar today. CV: Malignant Hypertension Sinus tachycardia Labetalol and hydralazine prn SBP <150. Nicardipine to maintain systolic blood pressure less than 150 lopressor 5mg iv q4h prn for HR > 90. GI: Vomiting- resolved. Zofran 4 mg IV q6 hours TF at goal. bowel regimen. FEN/RENAL: Renal insufficiency, unknown baseline creatinine Hypokalemia ICU electrolyte protocol Kumar in place due to critically ill patient in need of accurate I/O monitoring and at risk for urinary obstruction Monitor I/O and creatinine Monitor electrolytes and replace as indicated per ICU electively replacement protocol. ID: sputum growing enterobacter. Large amount of sputum production and e/o aspiration. Unasyn 3 gram IV q6 hours. will continue out 7 day course (anticipated stop date 09/07, today) resend blood cultures today, u/a, sputum. still plan on d/c abx today, but if he spikes a fever, will broaden him to empiric coverage. HEME: Monitor CBC, post op CBC pending. Coags WNL. Patient was not on anticoagulant or antiplatelet therapy. ENDO: Acute stress hyperglycemia Monitor bedside glucose and initiate low-dose insulin sliding scale as indicated PROPH: SCDs and teds for DVT prophylaxis. Pharmacologic DVT prophylaxis is contraindicated due to acute cerebellar hemorrhage. Protonix 40 mg IV daily for stress ulcer prophylaxis. ACCESS: right radial art line 09/04, left SC TLC 09/04. still requires both. Overall impression: Remain in the ICU. Improved respiratory dynamics after trach. Keanu Jama MD Sep 12, 2016 09:31
[2016-09-12] MEDS: ACETAMINOPHEN 1000 MG/100 ML VIAL IV PRN ×2 (09:32→18:09)
[2016-09-12] MEDS: cefTRIAXone INJ 1,000 MG in SODIUM CHLORIDE 0.9% INJ 100 ML IV SCH ×2 (11:39→22:20)
--- NOTE | 2016-09-12 12:13 | HHI.NSPN ---
(Nevin Trevino) Note Status Status: Progress Note (Nevin Trevino) Interval History Interval History 40-year-old gentleman postop day #1 status post right suboccipital craniectomy with cerebellar hemorrhage evacuation and ventriculostomy placement. His ICPs have been normal postoperatively. When sedation was held he vomited and was noted to have some eye opening and right-sided movements per the nursing staff. 09/03/16: Pt sedated on Diprivan. Decreased by RN and pt reported tracked to right side. at bedside states he had some spontaneous movement in RUE and RLE. Pts bp increases and requires sedation and anti hypertensive meds. 09/04/16: Pt sedated on Diprivan. When sedation decreased by RN patient opens both eyes and follow commands on the right side. He has left hemiplegia. Patient intubated and sedated. 09/07/16: Pt on sedation vacation currently this morning. He opens both eyes. Pupils 4mm bilaterally reactive bilaterally. Follows simple commands right side , has delayed response. Ventriculostomy drain in place at 20 cmH20, ICP14. Follow up CT head reviewed stable. 09/08/16: Pt sedated on Diprivan. Had episode of vomiting this morning. Follows intermittently right side. Left hemiparesis. Ventriculostomy drain in place at [id number]. ICP 7. 09/10/16: Pt sedation held this morning RN and pt coughing on vent and turned back on. Trach was done this morning. Not following commands, sedated. Ventric clamped ICP 3. 6: Pt on Diprivan and Fentanyl drips. Not opening eyes or following commands. Trach in place on Vent. Ventriculostomy drain in place ICPs remain normal, 3. 6: nursing reprots no changes to neuro checks, follows command to right side, flaccid on left. CPAP trials. (Nevin Trevino) Labs, Micro, & Vital Signs Results Date Time Temp Pulse Resp B/P Pulse Ox O2 Delivery O2 Flow Rate FiO2 09/12/16 10:00 118 09/12/16 08:00 98.9 118 20 141/81 100 09/12/16 08:00 120 09/12/16 08:00 40 09/12/16 07:50 100 40 09/12/16 07:00 100 Mechanical Ventilator 40 09/12/16 06:00 110 09/12/16 04:04 100 40 09/12/16 04:00 97.5 112 16 124/61 97 09/12/16 04:00 40 09/12/16 04:00 111 09/12/16 02:00 114 09/12/16 01:03 98 40 09/12/16 00:00 98.6 115 16 124/61 97 09/12/16 00:00 115 09/12/16 00:00 40 09/11/16 22:00 112 09/11/16 20:00 40 09/11/16 20:00 110 09/11/16 20:00 98.6 110 21 124/61 100 Arterial Line 09/11/16 19:24 100 40 09/11/16 19:00 100 Mechanical Ventilator 40 09/11/16 18:00 113 09/11/16 16:07 99 40 09/11/16 16:00 118 09/11/16 16:00 100.0 117 21 121/72 99 09/11/16 16:00 50 09/11/16 14:00 115 09/12/16 07:00 Intake Total 6872 ml Output Total 6250 ml Balance 622 ml Constitutional Vital Signs Date Time Temp Pulse Resp B/P Pulse Ox O2 Delivery O2 Flow Rate FiO2 09/12/16 10:00 118 09/12/16 08:00 98.9 118 20 141/81 100 09/12/16 08:00 120 09/12/16 08:00 40 09/12/16 07:50 100 40 09/12/16 07:00 100 Mechanical Ventilator 40 09/12/16 06:00 110 09/12/16 04:04 100 40 09/12/16 04:00 97.5 112 16 124/61 97 09/12/16 04:00 40 09/12/16 04:00 111 09/12/16 02:00 114 09/12/16 01:03 98 40 09/12/16 00:00 98.6 115 16 124/61 97 09/12/16 00:00 115 09/12/16 00:00 40 09/11/16 22:00 112 09/11/16 20:00 40 09/11/16 20:00 110 09/11/16 20:00 98.6 110 21 124/61 100 Arterial Line 09/11/16 19:24 100 40 09/11/16 19:00 100 Mechanical Ventilator 40 09/11/16 18:00 113 09/11/16 16:07 99 40 09/11/16 16:00 118 09/11/16 16:00 100.0 117 21 121/72 99 09/11/16 16:00 50 09/11/16 14:00 115 09/12/16 07:00 Intake Total 6872 ml Output Total 6250 ml Balance 622 ml (Nevin Trevino) Review of Systems/Exam Exam Opens eyes, follows simple commands to right. Trached on CPAP. Wound healing well, clean, john intact CN: pupils 2-3 mm b/l Motor: squeezed right hand, moving right leg to command, 0/5 movement left side Plantars equivocal b/l Cerebellar: cannot assess due to clinical condition (Nevin Trevino) Medications Current Medications Current Medications Medications (Trade) Dose Ordered Sig/Demetris Route PRN Reason Start Time Stop Time Status Last Admin Dose Admin Sodium Chloride (NS Flush) 2 ml UNSCH PRN .XX FLUSH AFTER USING IV ACCESS 09/01/16 21:00 Sodium Chloride (NS Flush) 2 ml BID .XX 09/01/16 21:00 09/12/16 08:37 Acetaminophen (Tylenol) 650 mg Q6H PRN OG-TUBE PAIN 1-5 OR TEMP >100.4 09/01/16 21:00 Hold Fentanyl Citrate (fentaNYL INJ) 50 mcg Q1H PRN IV PUSH Pain scale 6-10 &/or sedation 09/01/16 21:00 09/10/16 07:11 Pantoprazole Sodium (Protonix Inj) 40 mg DAILY IV 09/02/16 09:00 09/12/16 08:36 Miscellaneous Information 1 Q361D XX 09/01/16 21:00 Chlorhexidine Gluconate (Chlorhexidine 2% Cloth) Taper DAILY@04 TOP 09/02/16 04:00 08/29/17 03:59 09/09/16 03:36 Chlorhexidine Gluconate 3 pack 3 pack UNSCH PRN TOP HYGIENIC CARE 09/01/16 21:00 Levetriacetam 500 mg/Sodium Chloride 105 ml @ 420 mls/hr Q12HR IV 09/02/16 09:00 09/12/16 08:35 Nicardipine HCl 25 mg/Sodium Chloride 260 ml @ 0 mls/hr TITRATE IV 09/01/16 21:15 09/12/16 09:05 Potassium Chloride 100 ml @ 50 mls/hr Q2H PRN IV For Potassium 2.8 - 3.2 mEq/L 09/01/16 21:15 09/02/16 04:54 Potassium Chloride (KCl 20 Meq Premix Inj) 100 ml @ 50 mls/hr Q2H PRN IV For Potassium 2.8 - 3.2 mEq/L 09/01/16 21:15 Potassium Bicarb/ Potassium Chloride 50 meq 50 meq UNSCH PRN PO For Potassium 3.3 - 3.5 mEq/L 09/01/16 21:15 Potassium Chloride 100 ml @ 25 mls/hr UNSCH PRN IV For Potassium 3.3 - 3.5 mEq/L 09/01/16 21:15 Potassium Chloride 100 ml @ 50 mls/hr Q2H PRN IV For Potassium 3.3 - 3.5 mEq/L 09/01/16 21:15 Magnesium Sulfate/ Sodium Chloride (Magnesium Sulfate Inj/NS Inj) 100 ml @ 50 mls/hr UNSCH PRN IV For Magnesium 0.9 - 1.1 mg/dL 09/01/16 21:15 Magnesium Oxide 800 mg 800 mg UNSCH PRN PO For Magnesium 1.2 - 1.6 mg/dL 09/01/16 21:15 Magnesium Sulfate/ Sodium Chloride (Magnesium Sulfate Inj/NS Inj) 100 ml @ 50 mls/hr UNSCH PRN IV For Magnesium 1.2 - 1.6 mg/dL 09/01/16 21:15 09/02/16 08:18 Potassium Phosphate 2000 mg 2,000 mg Q4H PRN PO For Phosphorus < 2.5 mg/dL 09/01/16 21:15 Sodium Phosphate/ Sodium Chloride (Sodium Phosphate Inj/NS 250 ml Inj) 250 ml @ 42 mls/hr UNSCH PRN IV For Phosphorus < 2.5 mg/dL 09/01/16 21:15 09/02/16 08:18 Potassium Phosphate (K-Phos) 2,000 mg UNSCH PRN PO/TUBE SEE LABEL COMMENTS 09/01/16 21:15 Dextrose (D50w (Vial) Inj) 50 ml UNSCH PRN IV HYPOGLYCEMIA-SEE COMMENTS 09/01/16 21:15 Glucagon (Glucagon Inj) 1 mg UNSCH PRN OTHER HYPOGLYCEMIA-SEE COMMENTS 09/01/16 21:15 Insulin Aspart (NovoLOG SUPPLEMENTAL SCALE) 1 Q6H SQ 09/01/16 22:00 09/08/16 05:17 Chlorhexidine Gluconate 15 ml 15 ml BID@08,20 MT 09/02/16 08:00 09/12/16 07:27 Propofol (Diprivan 1000 Mg/100ml Inj) 100 ml @ 0 mls/hr TITRATE IV 09/02/16 00:30 09/12/16 06:02 Labetalol HCl (Trandate Inj) 10 mg Q4H PRN IV PUSH SBP >150 09/02/16 00:45 09/10/16 22:40 Acetaminophen (Ofirmev Inj) 1,000 mg Q6H PRN IV temp >100.4 09/02/16 01:00 09/12/16 09:32 Ondansetron HCl (Zofran Inj) 4 mg Q6HR PRN IV PUSH VOMITING 09/02/16 01:00 09/08/16 09:15 Metoclopramide HCl (Reglan Liq) 10 mg ACHS PO 09/03/16 11:00 09/12/16 11:39 Bisacodyl (Dulcolax Supp) 10 mg DAILY RECTAL 09/04/16 09:00 09/09/16 08:37 Polyethylene Glycol (Miralax) 17 gm BID PO 09/03/16 09:45 09/12/16 08:35 Senna/Docusate Sodium (Tania-Colace) 1 tab BID PO 09/03/16 09:45 09/12/16 08:38 Oxycodone HCl (Roxicodone Intensol Liq) 5 mg Q4H PO 09/05/16 09:00 09/12/16 08:36 Metoprolol Tartrate 5 mg 5 mg Q4H PRN IV PUSH HR > 90 or sbp > 160 09/06/16 10:15 09/11/16 08:54 Fentanyl Citrate 250 ml @ 0 mls/hr TITRATE IV 09/08/16 23:30 09/12/16 11:38 Ceftriaxone Sodium/Sodium Chloride (Rocephin Inj/NS Inj) 100 ml @ 200 mls/hr Q12H IV 09/10/16 11:00 09/12/16 11:39 Sodium Chloride (NS Flush) See Protocol DAILY IV FLUSH 09/11/16 09:00 09/12/16 08:37 Sodium Chloride (NS Flush) See Protocol UNSCH PRN IV FLUSH SEE PROTOCOL TABLE 09/10/16 14:45 Heparin Sodium (Porcine) (Heparin Central Flush) See Protocol DAILY IV FLUSH 09/11/16 09:00 09/11/16 08:09 Heparin Sodium (Porcine) (Heparin Central Flush) See Protocol UNSCH PRN IV FLUSH SEE PROTOCOL TABLE 09/10/16 14:45 Sodium Chloride (NS Flush) UNSCH PRN IV FLUSH SEE PROTOCOL TABLE 09/10/16 14:45 Chlorpromazine HCl (Thorazine Inj) 25 mg Q4H PRN IM hiccups 09/12/16 09:30 09/12/16 11:38 (Nevin Trevino) Medical Decision Making MDM Remarks 40 y/o male with large right cerebellar hemisphere hemorrhage, s/p suboccipital craniectomy with evacuation of ICH and ventriculostomy placement now mt'ed, stable neuro exam (Nevin Trevino) Plan Plan Remarks cont critical care - CPAP trials and vent weaning serial neuro checks dw in room (Nevin Trevino) Attending Statement The exam, history, and the medical decision-making described in the above note were completed with the assistance of the mid-level provider. I reviewed and agree with the findings presented. I attest that I had a [id number] encounter with the patient on the same day, and personally performed and documented my assessment and findings in the medical record. (Johnnie Naqvi MD) Nevin Trevino Sep 12, 2016 12:13 Johnnie Naqvi MD Sep 12, 2016 20:22
[2016-09-12] MEDS: METOPROLOL TARTRATE 5 MG/5 ML VIAL IV PUSH PRN (20:03)
[2016-09-12] MEDS: RESP: ALBUTEROL 2.5 MG/3 ML NEB (PRN) INH (20:11)
[2016-09-13] VITALS (20 sets, daily range): BP systolic 119–139; BP diastolic 61–96; PULSE 93–122; RESP 16–20; TEMP 97.3–100.4; O2SAT 95–100
[2016-09-13] MEDS: oxyCODONE HCL ORAL CONC 20 MG/ML SYRINGE PO SCH ×2 (00:32→04:12)
[2016-09-13] MEDS: CHLORHEXIDINE GLUCONATE 2 % 1 PACK (2 CLOTHS) TOP SCH (03:45)
[2016-09-13] MEDS: INSULIN ASPART SUPPLEMENTAL SCALE SQ SCH ×4 (04:00→21:33)
[2016-09-13] MEDS: RESP: ALBUTEROL 2.5 MG/3 ML NEB (PRN) INH ×2 (04:03→19:38)
[2016-09-13 04:13] LABS: BICARBONATE 26.9 MEQ/L (21.0-32.0); INDIRECT BILIRUBIN 0.2 MG/DL (0.0-0.8); POTASSIUM 3.7 MEQ/L (3.5-5.1); TOTAL BILIRUBIN ADULT 0.4 MG/DL (0.2-1.0)
[2016-09-13] MEDS: METOPROLOL TARTRATE 5 MG/5 ML VIAL IV PUSH PRN (04:13)
[2016-09-13] MEDS: METOCLOPRAMIDE HCL SYRUP 10 MG/10 ML UDC PO SCH ×4 (06:00→19:49)
[2016-09-13] MEDS: CHLORHEXIDINE 0.12% (ORAL KIT) 15 ML CUP MT SCH ×2 (07:19→21:33)
[2016-09-13] MEDS: fentaNYL 2,500 MCG/NS 250 ML IV SCH ×2 (07:19→18:19)
[2016-09-13] MEDS: PROPOFOL 1000 MG/100 ML INJ 100 ML IV SCH ×2 (07:19→16:50)
--- NOTE | 2016-09-13 07:32 | HHI.CCPN ---
Subjective Remarks/Hospital Course Hospital Course: 40-year-old male with reportedly no significant past medical history who was at work today and was taking out the garbage when he developed "the worse headache of his life". He was screaming in pain and EVAC was called. Upon EVAC arrival his GCS was 13 but rapidly deteriorated to GCS 3. He vomited. He was intubated on the scene without any drugs. CT brain demonstrated a large right cerebellar hemorrhage (4.9 x 5.7 cm) with effacement of the fourth ventricle. He has a very poor neurologic exam with absence of pupillary, corneal, gag, cough, oculocephalic reflexes. Not overbreathing vent but did not formally test apnea. Dr. Ovalles discussed with and she is requesting operative management. He is being taken for emergent CT angiogram and then to OR for evacuation by Dr. Ovalles. Subjective: 09/02: decompressive craniectomy overnight. per report, when he returned from the OR he apparently had a +gag. this morning remains encephalopathic. 06/06: vomiting on sedation vacation yesterday. cardene off. icp's controlled: 9 this AM. still poor neurologic exam. 09/04: on goal TF. no additional vomiting. following commands RUE, RLE. tracking. EVD at 15 cmH2O. ICP controlled. 09/05: still weakly following commands. ICP slightly elevated at 16-17 today. sedation vacation patient gets agitated, tachycardic, hypertensive. sputum growing pansensitive enterobacter. 09/06: still weakly following commands. ICP high overnight for ~30 minutes, but then improved. EVD challenged to 20 cmH2O today. still tachycardic and hypertensive. 09/07: still follows. ICP better controlled. EVD at [address] stable. 09/08: Delayed follow. Agitated when sedation lowered. Vomited early; will place NG to suction. Reglan already on board. We'd like to get to trial extubation for 's sake. Failed SBT today - will try again at higher PS. 09/09 no evidence overnight, no more vomiting, discussed with for tracheostomy placement 09/10: Tracheostomy this morning, CXR fine. DHT in good position, advance 10 cm. 09/11: Comfortable with trach; site clean. Talked with parents at bedside. 09/12: Breathes spontaneously with good excursions. 09/13: Tolerated SBT for several hours yesterday but became agitated and ineffective. Continue weaning efforts. Objective Vital Signs Date Time Temp Pulse Resp B/P Pulse Ox O2 Delivery O2 Flow Rate FiO2 09/13/16 07:15 99 40 09/13/16 06:00 108 09/13/16 05:12 16 09/13/16 04:00 98.2 122/71 09/12/16 19:00 Mechanical Ventilator Intake and Output 09/12/16 09/12/16 09/13/16 08:00 16:00 00:00 Intake Total 2083 ml 1345 ml 1544 ml Output Total 2100 ml 2000 ml 1600 ml Balance -17 ml -655 ml -56 ml Result Diagram: 09/12/16 0400 09/13/16 0313 Objective Remarks GENERAL: male with resolving edema. SKIN: Warm and dry. HEAD: healing posterior wound EYES: No scleral icterus. ENT: No nasal bleeding or discharge. Mucous membranes pink and moist. NECK: Trachea midline, trach site clean, dry. CARDIOVASCULAR: . normal rate, regular rhythm. No JVD. No m,r. RESPIRATORY:CPAP/PSV, fio2 35%. equal chest rise. Large amount mobile secretions. GASTROINTESTINAL: Abdomen soft, non-tender, nondistended. BS active. No guarding. : Kumar in place MSK: No obvious deformity. No edema. Well perfused, warm. NEUROLOGICAL: Pupils 2 mm, reactive. + cough, gag. FC delayed RUE, RLE. Remains flaccid on left. A/P Assessment and Plan Assessment: 40yM with large posterior fossa IPH now s/p decompressive posterior fossa craniectomy 09/01. encephalopathy slowly improving. still very poor prognosis given size and location of the bleed. goals are aggressive. palliative care consulted. NEURO: Acute cerebellar hemorrhage (ICH Score 4) CT brain 09/01/16 - 4.9 x 5.3 cm right cerebellar hemorrhage with effacement of the fourth ventricle. CTA 09/01/16 - No e/o vascular abnormality. s/p Suboccipital craniectomy, cerebellar hemorrhage evacuation, ventriculostomy by Dr. Ovalles 09/01/16 Ventric at + 20 cm H20 per NSG Continue Keppra 500 mg IV every 12 d/c 3%. Maintain normothermia with tylenol/cooling blanket prn temp >100.4. Target RASS -1, patient comfort and vent synchrony, frequent neuro checks RESP: Acute hypoxic and hypercarbic respiratory failure Aspiration Intubated at the scene by EVAC with no sedation End tidal CO2 monitoring. Target PaCO2 35-40. Duoneb q6 hours; Albuterol q2 hours prn wheezing Discussed with tracheostomy option Enterobacter, Klebsiella in sputum -> sens to ceftriaxone, q12h dosing started 09/10 Started trach collar today. CV: Malignant Hypertension Sinus tachycardia Labetalol and hydralazine prn SBP <150. Nicardipine to maintain systolic blood pressure less than 150 lopressor 5mg iv q4h prn for HR > 90. Start lopressor 50 bid. Start norvasc 5 daily Taper off cardene GI: Vomiting- resolved. Zofran 4 mg IV q6 hours TF at goal. bowel regimen. FEN/RENAL: Renal insufficiency, unknown baseline creatinine Hypokalemia ICU electrolyte protocol Kumar in place due to critically ill patient in need of accurate I/O monitoring and at risk for urinary obstruction Monitor I/O and creatinine Monitor electrolytes and replace as indicated per ICU electively replacement protocol. ID: sputum growing enterobacter. Large amount of sputum production and e/o aspiration. Unasyn 3 gram IV q6 hours. will continue out 7 day course (stop date 09/07) resend blood cultures today, u/a, sputum. still plan on d/c abx today, but if he spikes a fever, will broaden him to empiric coverage. HEME: Monitor CBC, post op CBC pending. Coags WNL. Patient was not on anticoagulant or antiplatelet therapy. ENDO: Acute stress hyperglycemia Monitor bedside glucose and initiate low-dose insulin sliding scale as indicated PROPH: SCDs and teds for DVT prophylaxis. Pharmacologic DVT prophylaxis is contraindicated due to acute cerebellar hemorrhage. Protonix 40 mg IV daily for stress ulcer prophylaxis. ACCESS: right radial art line 09/04, left IJ TLC 09/04, d/c now. Overall impression: Remain in the ICU. Improved respiratory dynamics after trach. Continue vent weaning. Convert to oral BP meds Keanu Jama MD Sep 13, 2016 07:32
[2016-09-13] MEDS: PANTOPRAZOLE SODIUM 40 MG VIAL IV SCH (08:01)
[2016-09-13] MEDS: levETIRAcetam INJ 500 MG in SODIUM CHLORIDE 0.9% INJ 100 ML IV SCH ×2 (08:02→19:49)
[2016-09-13] MEDS: BISACODYL 10 MG SUPP RECTAL SCH (08:02)
[2016-09-13] MEDS: POLYETHYLENE GLYCOL 17 GM PKG PO SCH ×2 (08:02→20:02)
[2016-09-13] MEDS: DOCUSATE SODIUM 50 MG/SENNA 8.6 MG TAB PO SCH ×2 (08:02→20:11)
[2016-09-13] MEDS: SODIUM CHLORIDE 0.9% FLUSH 10 ML FLUSH SCH ×2 (08:02→21:33)
[2016-09-13] MEDS: SODIUM CHLORIDE 0.9% FLUSH 10 ML FLUSH IV FLUSH SCH (08:02)
[2016-09-13] MEDS: amLODIPine BESYLATE 5 MG TAB PO SCH (09:22)
[2016-09-13] MEDS: METOPROLOL TARTRATE 50 MG TAB PO SCH ×2 (09:22→19:49)
[2016-09-13] MEDS: ACETAMINOPHEN 1000 MG/100 ML VIAL IV PRN ×2 (10:26→19:48)
[2016-09-13] MEDS: cefTRIAXone INJ 1,000 MG in SODIUM CHLORIDE 0.9% INJ 100 ML IV SCH (10:43)
--- NOTE | 2016-09-13 11:56 | HHI.NSPN ---
(Nevin Trevino) Note Status Status: Progress Note (Nevin Trevino) Interval History Interval History 40-year-old gentleman postop day #1 status post right suboccipital craniectomy with cerebellar hemorrhage evacuation and ventriculostomy placement. His ICPs have been normal postoperatively. When sedation was held he vomited and was noted to have some eye opening and right-sided movements per the nursing staff. 09/03/16: Pt sedated on Diprivan. Decreased by RN and pt reported tracked to right side. at bedside states he had some spontaneous movement in RUE and RLE. Pts bp increases and requires sedation and anti hypertensive meds. 09/04/16: Pt sedated on Diprivan. When sedation decreased by RN patient opens both eyes and follow commands on the right side. He has left hemiplegia. Patient intubated and sedated. 09/07/16: Pt on sedation vacation currently this morning. He opens both eyes. Pupils 4mm bilaterally reactive bilaterally. Follows simple commands right side , has delayed response. Ventriculostomy drain in place at 20 cmH20, ICP14. Follow up CT head reviewed stable. 09/08/16: Pt sedated on Diprivan. Had episode of vomiting this morning. Follows intermittently right side. Left hemiparesis. Ventriculostomy drain in place at [id number]. ICP 7. 6: Pt sedation held this morning RN and pt coughing on vent and turned back on. Trach was done this morning. Not following commands, sedated. Ventric clamped ICP 3. 6: Pt on Diprivan and Fentanyl drips. Not opening eyes or following commands. Trach in place on Vent. Ventriculostomy drain in place ICPs remain normal, 3. 6: nursing reprots no changes to neuro checks, follows command to right side, flaccid on left. CPAP trials. 09/13: no changes to neuro check, continues CPAP trials (Nevin Trevino) Labs, Micro, & Vital Signs Results Date Time Temp Pulse Resp B/P Pulse Ox O2 Delivery O2 Flow Rate FiO2 09/13/16 10:54 95 40 09/13/16 10:00 112 09/13/16 08:00 40 09/13/16 08:00 97.3 109 18 133/77 100 09/13/16 08:00 122 09/13/16 07:59 40 09/13/16 07:15 99 40 09/13/16 07:00 98 Mechanical Ventilator 40 09/13/16 06:00 108 09/13/16 05:12 16 09/13/16 04:03 100 40 09/13/16 04:00 114 09/13/16 04:00 40 09/13/16 04:00 98.2 114 16 122/71 100 09/13/16 02:00 110 09/13/16 00:10 100 40 09/13/16 00:00 111 09/13/16 00:00 40 09/13/16 00:00 97.3 111 17 122/66 98 09/12/16 22:00 109 09/12/16 20:12 98 40 09/12/16 20:00 40 09/12/16 20:00 98.6 120 16 116/57 97 09/12/16 20:00 120 09/12/16 19:00 97 Mechanical Ventilator 40 09/12/16 18:00 125 09/12/16 17:10 100 40 09/12/16 16:00 40 09/12/16 16:00 98.6 108 24 138/67 100 09/12/16 16:00 105 09/12/16 14:00 115 09/12/16 13:03 96 40 09/12/16 12:00 40 09/12/16 12:00 99.0 116 27 126/59 96 09/12/16 12:00 100 09/13/16 07:00 Intake Total 4075 ml Output Total 5200 ml Balance -1125 ml Constitutional Vital Signs Date Time Temp Pulse Resp B/P Pulse Ox O2 Delivery O2 Flow Rate FiO2 09/13/16 10:54 95 40 09/13/16 10:00 112 09/13/16 08:00 40 09/13/16 08:00 97.3 109 18 133/77 100 09/13/16 08:00 122 09/13/16 07:59 40 09/13/16 07:15 99 40 09/13/16 07:00 98 Mechanical Ventilator 40 09/13/16 06:00 108 09/13/16 05:12 16 09/13/16 04:03 100 40 09/13/16 04:00 114 09/13/16 04:00 40 09/13/16 04:00 98.2 114 16 122/71 100 09/13/16 02:00 110 09/13/16 00:10 100 40 09/13/16 00:00 111 09/13/16 00:00 40 09/13/16 00:00 97.3 111 17 122/66 98 09/12/16 22:00 109 09/12/16 20:12 98 40 09/12/16 20:00 40 09/12/16 20:00 98.6 120 16 116/57 97 09/12/16 20:00 120 09/12/16 19:00 97 Mechanical Ventilator 40 09/12/16 18:00 125 09/12/16 17:10 100 40 09/12/16 16:00 40 09/12/16 16:00 98.6 108 24 138/67 100 09/12/16 16:00 105 09/12/16 14:00 115 09/12/16 13:03 96 40 09/12/16 12:00 40 09/12/16 12:00 99.0 116 27 126/59 96 09/12/16 12:00 100 09/13/16 07:00 Intake Total 4075 ml Output Total 5200 ml Balance -1125 ml (Nevin Trevino) Review of Systems/Exam Exam Opens eyes, follows simple commands to right side. Trached on CPAP. Wound healing well, clean, john intact CN: pupils 2-3 mm b/l, intermittent tracking Motor: moves right intermittently, 0/5 movement left side Plantars equivocal b/l Cerebellar: cannot assess due to clinical condition (Nevin Trevino) Medications Current Medications Current Medications Medications (Trade) Dose Ordered Sig/Demetris Route PRN Reason Start Time Stop Time Status Last Admin Dose Admin Sodium Chloride (NS Flush) 2 ml UNSCH PRN .XX FLUSH AFTER USING IV ACCESS 09/01/16 21:00 Sodium Chloride (NS Flush) 2 ml BID .XX 09/01/16 21:00 09/13/16 08:02 Acetaminophen (Tylenol) 650 mg Q6H PRN OG-TUBE PAIN 1-5 OR TEMP >100.4 09/01/16 21:00 Hold Fentanyl Citrate (fentaNYL INJ) 50 mcg Q1H PRN IV PUSH Pain scale 6-10 &/or sedation 09/01/16 21:00 09/10/16 07:11 Pantoprazole Sodium (Protonix Inj) 40 mg DAILY IV 09/02/16 09:00 09/13/16 08:01 Miscellaneous Information 1 Q361D XX 09/01/16 21:00 Chlorhexidine Gluconate (Chlorhexidine 2% Cloth) Taper DAILY@04 TOP 09/02/16 04:00 08/29/17 03:59 09/09/16 03:36 Chlorhexidine Gluconate 3 pack 3 pack UNSCH PRN TOP HYGIENIC CARE 09/01/16 21:00 Levetriacetam 500 mg/Sodium Chloride 105 ml @ 420 mls/hr Q12HR IV 09/02/16 09:00 09/13/16 08:02 Nicardipine HCl 25 mg/Sodium Chloride 260 ml @ 0 mls/hr TITRATE IV 09/01/16 21:15 09/12/16 21:24 Potassium Chloride 100 ml @ 50 mls/hr Q2H PRN IV For Potassium 2.8 - 3.2 mEq/L 09/01/16 21:15 09/02/16 04:54 Potassium Chloride (KCl 20 Meq Premix Inj) 100 ml @ 50 mls/hr Q2H PRN IV For Potassium 2.8 - 3.2 mEq/L 09/01/16 21:15 Potassium Bicarb/ Potassium Chloride 50 meq 50 meq UNSCH PRN PO For Potassium 3.3 - 3.5 mEq/L 09/01/16 21:15 Potassium Chloride 100 ml @ 25 mls/hr UNSCH PRN IV For Potassium 3.3 - 3.5 mEq/L 09/01/16 21:15 Potassium Chloride 100 ml @ 50 mls/hr Q2H PRN IV For Potassium 3.3 - 3.5 mEq/L 09/01/16 21:15 Magnesium Sulfate/ Sodium Chloride (Magnesium Sulfate Inj/NS Inj) 100 ml @ 50 mls/hr UNSCH PRN IV For Magnesium 0.9 - 1.1 mg/dL 09/01/16 21:15 Magnesium Oxide 800 mg 800 mg UNSCH PRN PO For Magnesium 1.2 - 1.6 mg/dL 09/01/16 21:15 Magnesium Sulfate/ Sodium Chloride (Magnesium Sulfate Inj/NS Inj) 100 ml @ 50 mls/hr UNSCH PRN IV For Magnesium 1.2 - 1.6 mg/dL 09/01/16 21:15 09/02/16 08:18 Potassium Phosphate 2000 mg 2,000 mg Q4H PRN PO For Phosphorus < 2.5 mg/dL 09/01/16 21:15 Sodium Phosphate/ Sodium Chloride (Sodium Phosphate Inj/NS 250 ml Inj) 250 ml @ 42 mls/hr UNSCH PRN IV For Phosphorus < 2.5 mg/dL 09/01/16 21:15 09/02/16 08:18 Potassium Phosphate (K-Phos) 2,000 mg UNSCH PRN PO/TUBE SEE LABEL COMMENTS 09/01/16 21:15 Dextrose (D50w (Vial) Inj) 50 ml UNSCH PRN IV HYPOGLYCEMIA-SEE COMMENTS 09/01/16 21:15 Glucagon (Glucagon Inj) 1 mg UNSCH PRN OTHER HYPOGLYCEMIA-SEE COMMENTS 09/01/16 21:15 Insulin Aspart (NovoLOG SUPPLEMENTAL SCALE) 1 Q6H SQ 09/01/16 22:00 09/12/16 22:21 Chlorhexidine Gluconate 15 ml 15 ml BID@08,20 MT 09/02/16 08:00 09/13/16 07:19 Propofol (Diprivan 1000 Mg/100ml Inj) 100 ml @ 0 mls/hr TITRATE IV 09/02/16 00:30 09/13/16 07:19 Labetalol HCl (Trandate Inj) 10 mg Q4H PRN IV PUSH SBP >150 09/02/16 00:45 09/10/16 22:40 Acetaminophen (Ofirmev Inj) 1,000 mg Q6H PRN IV temp >100.4 09/02/16 01:00 09/13/16 10:26 Ondansetron HCl (Zofran Inj) 4 mg Q6HR PRN IV PUSH VOMITING 09/02/16 01:00 09/08/16 09:15 Metoclopramide HCl (Reglan Liq) 10 mg ACHS PO 09/03/16 11:00 09/13/16 10:45 Bisacodyl (Dulcolax Supp) 10 mg DAILY RECTAL 09/04/16 09:00 09/09/16 08:37 Polyethylene Glycol (Miralax) 17 gm BID PO 09/03/16 09:45 09/13/16 08:02 Senna/Docusate Sodium (Tania-Colace) 1 tab BID PO 09/03/16 09:45 09/13/16 08:02 Metoprolol Tartrate 5 mg 5 mg Q4H PRN IV PUSH HR > 90 or sbp > 160 09/06/16 10:15 09/13/16 04:13 Fentanyl Citrate 250 ml @ 0 mls/hr TITRATE IV 09/08/16 23:30 09/13/16 07:19 Ceftriaxone Sodium/Sodium Chloride (Rocephin Inj/NS Inj) 100 ml @ 200 mls/hr Q12H IV 09/10/16 11:00 09/13/16 10:43 Sodium Chloride (NS Flush) See Protocol DAILY IV FLUSH 09/11/16 09:00 09/13/16 08:02 Sodium Chloride (NS Flush) See Protocol UNSCH PRN IV FLUSH SEE PROTOCOL TABLE 09/10/16 14:45 Heparin Sodium (Porcine) (Heparin Central Flush) See Protocol DAILY IV FLUSH 09/11/16 09:00 09/11/16 08:09 Heparin Sodium (Porcine) (Heparin Central Flush) See Protocol UNSCH PRN IV FLUSH SEE PROTOCOL TABLE 09/10/16 14:45 Sodium Chloride (NS Flush) UNSCH PRN IV FLUSH SEE PROTOCOL TABLE 09/10/16 14:45 Chlorpromazine HCl (Thorazine Inj) 25 mg Q4H PRN IM hiccups 09/12/16 09:30 09/13/16 08:04 Metoprolol Tartrate (Lopressor) 50 mg Q12HR PO 09/13/16 09:15 09/13/16 09:22 Amlodipine Besylate (Norvasc) 5 mg DAILY PO 09/13/16 09:15 09/13/16 09:22 (Nevin Trevino) Medical Decision Making MDM Remarks 40 y/o male with large right cerebellar hemisphere hemorrhage, s/p suboccipital craniectomy with evacuation of ICH and ventriculostomy placement now dc'ed, stable neuro exam (Nevin Trevino) Plan Plan Remarks cont critical care cont CPAP trials and vent weaning serial neuro checks dw nursing (Nevin Trevino) Attending Statement The exam, history, and the medical decision-making described in the above note were completed with the assistance of the mid-level provider. I reviewed and agree with the findings presented. I attest that I had a [id number] encounter with the patient on the same day, and personally performed and documented my assessment and findings in the medical record. (Johnnie Naqvi MD) Nevin Trevino Sep 13, 2016 11:56 Johnnie Naqvi MD Sep 13, 2016 21:47
[2016-09-13 12:19] LABS: BASOPHIL # 0.1 TH/MM3 (0-0.2); BASOPHIL % 0.7 % (0.0-2.0); EOSINOPHIL # 0.4 TH/MM3 (0-0.4); HEMATOCRIT 34.1 % (39.0-51.0); LYMPH % 7.4 % (9.0-44.0); LYMPHOCYTE # 1.3 TH/MM3 (1.0-4.8); MEAN CELL VOLUME 82.9 FL (80.0-100.0); MEAN CORPUSCULAR HEMOGLOBIN 27.9 PG (27.0-34.0); MEAN CORPUSCULAR HGB CONC 33.6 % (32.0-36.0); MONO % 10.8 % (0.0-8.0); NEUT % 79.1 % (16.0-70.0); PLATELET COUNT 419 TH/MM3 (150-450); RED BLOOD COUNT 4.12 MIL/MM3 (4.50-5.90); RED CELL DISTRIBUTION WIDTH 14.4 % (11.6-17.2); WHITE BLOOD COUNT 17.7 TH/MM3 (4.0-11.0)
[2016-09-13 12:24] LABS: HEMO FLAGS AUTO DIFF
[2016-09-13 12:31] LABS: BLOOD, URINE MOD (NEG); GLUCOSE,URINE NEG (NEG); KETONE, URINE NEG (NEG); NITRITE,URINE NEG (NEG); PH, URINE 5.5 (5.0-8.5); URINE COLOR YELLOW (YELLW/STRAW)
[2016-09-13 12:51] LABS: BANDS 12 % (0-6); EOSINOPHILS 2 % (0-4); MYELOCYTES 4 % (0-0); NEUTROPHIL # MANUAL DIFF 14.2 TH/MM3 (1.8-7.7); PLATELET ESTIMATE SMEAR NORMAL (NORMAL); PLATELET MORPHOLOGY NORMAL (NORMAL); POLYS (SEG NEUTROPHILS) 64 % (16-70); SCAN/DIFF FINAL DIFF MANUAL; WBC DIFF SAMPLE 100
[2016-09-13 13:00] LABS: WBC, URINE 0-2 /hpf (0-5)
[2016-09-13 13:01] LABS: COMMENT (UR) CATH-CULT NOT IND; COMMENT2 (UR) CATH-CULT NOT IND; CULTURE IF INDICATED CATH CULTURE NOT IND; SQUAMOUS EPITHELIAL CELL URINE 0-5 /hpf (0-5)
[2016-09-13] MEDS: niCARdipine INJ 25 MG in SODIUM CHLOR 0.9% 250 ML INJ 250 ML IV SCH (13:35)
--- NOTE | 2016-09-13 17:44 | RADRPT ---
EXAM DATE/TIME: 09/13/2016 17:22 [facility] COMPARISON: CHEST SINGLE AP, September 10, 2016, 14:51. CHEST SINGLE AP, September 10, 2016, 15:08. INDICATIONS : Congestion. MEDICAL HISTORY : Stroke. Hypertension. SURGICAL HISTORY : None. ENCOUNTER: Subsequent ACUITY: 2 weeks PAIN SCORE: Non-responsive. LOCATION: Bilateral chest FINDINGS: A single view of the chest demonstrates scattered patchy opacities. Heart enlarged. Tracheostomy tube and feeding tube in good position. Osseous structures are intact. CONCLUSION: Scattered bilateral patchy airspace disease. Edgar Rangel MD on September 13, 2016 at 17:41 Board Certified Radiologist. This report was verified electronically.
[2016-09-13 21:01] LABS: MEAN CORPUSCULAR HGB CONC 36.6 % (32.0-36.0)
[2016-09-14] VITALS (19 sets, daily range): BP systolic 105–141; BP diastolic 56–92; PULSE 65–120; RESP 16–22; TEMP 96.8–100.4; O2SAT 98–100
[2016-09-14] MEDS: cefTRIAXone INJ 1,000 MG in SODIUM CHLORIDE 0.9% INJ 100 ML IV SCH ×3 (00:02→23:10)
[2016-09-14] MEDS: PROPOFOL 1000 MG/100 ML INJ 100 ML IV SCH ×4 (00:02→18:36)
[2016-09-14] MEDS: INSULIN ASPART SUPPLEMENTAL SCALE SQ SCH ×4 (04:00→23:21)
[2016-09-14] MEDS: CHLORHEXIDINE GLUCONATE 2 % 1 PACK (2 CLOTHS) TOP SCH (04:00)
[2016-09-14] MEDS: RESP: ALBUTEROL 2.5 MG/3 ML NEB (PRN) INH ×3 (04:17→15:12)
[2016-09-14 06:10] LABS: AUTOMATED NEUTROPHIL # 11.2 TH/MM3 (1.8-7.7); BASOPHIL # 0.1 TH/MM3 (0-0.2); BASOPHIL % 0.6 % (0.0-2.0); EOSINOPHIL # 0.3 TH/MM3 (0-0.4); EOSINOPHIL % 1.8 % (0.0-4.0); HEMATOCRIT 29.8 % (39.0-51.0); LYMPH % 9.5 % (9.0-44.0); LYMPHOCYTE # 1.4 TH/MM3 (1.0-4.8); MEAN CELL VOLUME 82.5 FL (80.0-100.0); MEAN CORPUSCULAR HEMOGLOBIN 30.2 PG (27.0-34.0); MONO % 10.7 % (0.0-8.0); NEUT % 77.4 % (16.0-70.0); PLATELET COUNT 414 TH/MM3 (150-450); RED BLOOD COUNT 3.62 MIL/MM3 (4.50-5.90); RED CELL DISTRIBUTION WIDTH 14.4 % (11.6-17.2); WHITE BLOOD COUNT 14.4 TH/MM3 (4.0-11.0)
[2016-09-14 06:14] LABS: HEMO FLAGS AUTO DIFF
[2016-09-14 06:49] LABS: BICARBONATE 27.2 MEQ/L (21.0-32.0); INDIRECT BILIRUBIN 0.5 MG/DL (0.0-0.8); TOTAL BILIRUBIN ADULT 0.6 MG/DL (0.2-1.0)
[2016-09-14 06:51] LABS: POTASSIUM 4.1 MEQ/L (3.5-5.1)
[2016-09-14 07:52] LABS: BANDS 10 % (0-6); EOSINOPHILS 4 % (0-4); METAMYELOCYTES 2 % (0-1); NEUTROPHIL # MANUAL DIFF 12.2 TH/MM3 (1.8-7.7); PLATELET ESTIMATE SMEAR NORMAL (NORMAL); PLATELET MORPHOLOGY NORMAL (NORMAL); POLYS (SEG NEUTROPHILS) 73 % (16-70); SCAN/DIFF FINAL DIFF MANUAL; WBC DIFF SAMPLE 100
[2016-09-14] MEDS: DOCUSATE SODIUM 50 MG/SENNA 8.6 MG TAB PO SCH ×2 (09:00→20:57)
[2016-09-14] MEDS: BISACODYL 10 MG SUPP RECTAL SCH (09:00)
[2016-09-14] MEDS: SODIUM CHLORIDE 0.9% FLUSH 10 ML FLUSH SCH ×2 (09:13→20:57)
[2016-09-14] MEDS: amLODIPine BESYLATE 5 MG TAB PO SCH (09:14)
[2016-09-14] MEDS: METOPROLOL TARTRATE 50 MG TAB PO SCH ×2 (09:14→20:56)
[2016-09-14] MEDS: levETIRAcetam INJ 500 MG in SODIUM CHLORIDE 0.9% INJ 100 ML IV SCH ×2 (09:14→20:57)
[2016-09-14] MEDS: PANTOPRAZOLE SODIUM 40 MG VIAL IV SCH (09:14)
[2016-09-14] MEDS: SODIUM CHLORIDE 0.9% FLUSH 10 ML FLUSH IV FLUSH SCH (09:15)
[2016-09-14] MEDS: CHLORHEXIDINE 0.12% (ORAL KIT) 15 ML CUP MT SCH ×2 (09:15→20:55)
--- NOTE | 2016-09-14 09:51 | HHI.NSPN ---
History Chief Complaint: ICH s/p suboccipital craniectomy for evacuation. Interval History 40-year-old gentleman postop day #1 status post right suboccipital craniectomy with cerebellar hemorrhage evacuation and ventriculostomy placement. His ICPs have been normal postoperatively. When sedation was held he vomited and was noted to have some eye opening and right-sided movements per the nursing staff. 09/03/16: Pt sedated on Diprivan. Decreased by RN and pt reported tracked to right side. at bedside states he had some spontaneous movement in RUE and RLE. Pts bp increases and requires sedation and anti hypertensive meds. 09/04/16: Pt sedated on Diprivan. When sedation decreased by RN patient opens both eyes and follow commands on the right side. He has left hemiplegia. Patient intubated and sedated. 09/07/16: Pt on sedation vacation currently this morning. He opens both eyes. Pupils 4mm bilaterally reactive bilaterally. Follows simple commands right side , has delayed response. Ventriculostomy drain in place at 20 cmH20, ICP14. Follow up CT head reviewed stable. 09/08/16: Pt sedated on Diprivan. Had episode of vomiting this morning. Follows intermittently right side. Left hemiparesis. Ventriculostomy drain in place at [id number]. ICP 7. 6: Pt sedation held this morning RN and pt coughing on vent and turned back on. Trach was done this morning. Not following commands, sedated. Ventric clamped ICP 3. 6: Pt on Diprivan and Fentanyl drips. Not opening eyes or following commands. Trach in place on Vent. Ventriculostomy drain in place ICPs remain normal, 3. 09/14/16: Patient on Diprivan and fentanyl drips. When held by RN this morning patient opens both eyes and would blink to command. He gripped his right hand to move his right leg to command. Left hemiplegia. System Review Comments Not able to obtain given clinical condition. Exam Results Vital Signs Date Time Temp Pulse Resp B/P Pulse Ox O2 Delivery O2 Flow Rate FiO2 09/14/16 08:13 98 40 09/14/16 06:00 95 09/14/16 04:00 96.8 16 124/77 09/13/16 19:00 Mechanical Ventilator Intake and Output 09/13/16 09/13/16 09/13/16 07:59 15:59 23:59 Intake Total 1186 ml 1249 ml 1032 ml Output Total 1600 ml 2100 ml 2900 ml Balance -414 ml -851 ml -1868 ml Physical Examination Resp: Trach in place clear to auscultation bilaterally. Pressure control. Rate 16. FiO2 40% Peep 5 Heart: NSR no murmurs Abd: Soft diminished bs Skin: Incision clean and dry. Healing well. Muscle: Moves right side to command when sedation held by RN. Left hemiplegia. Neuro: Pt sedated on Diprivan and Fentanyl for vent. Patient opens eyes once sedation held. Pupils are 2 mm bilaterally and reactive bilaterally. Patient follows commands on the right side when sedation held. No movement on left side. Lab, Micro, Other Results Last Impressions Chest X-Ray 09/13/16 0000 Signed Impressions: Service Date/Time: Tuesday, September 13, 2016 17:22 - CONCLUSION: Scattered bilateral patchy airspace disease. Edgar Rangel MD Abdomen X-Ray 09/10/16 0000 Signed Impressions: Service Date/Time: September 06:34 - CONCLUSION: Feeding tube tip in the stomach Al Hernandez MD Head CT 09/07/16 0600 Signed Impressions: Service Date/Time: Wednesday, September 07, 2016 06:05 - CONCLUSION: Stable brain appearance. lA Hernandez MD Neck CTA 09/01/162019 Signed Impressions: Service Date/Time: Thursday, September 01, 2016 20:55 - CONCLUSION: Unremarkable exam. The carotid arteries are intact. Ag Saxena MD Head CTA 09/01/162019 Signed Impressions: Service Date/Time: Thursday, September 01, 2016 20:55 - CONCLUSION: The etiology of the patient's right cerebellar h hemorrhage is not identified and there appears to be some infiltrates and possible pleural effusions in the upper lungs that are visualized. Erika Bob MD Laboratory Tests Test 09/13/16 09/14/16 11:45 05:55 White Blood Count 17.7 TH/MM3 14.4 TH/MM3 Red Blood Count 4.12 MIL/MM3 3.62 MIL/MM3 Hemoglobin 11.5 GM/DL 10.9 GM/DL Hematocrit 34.1 % 29.8 % Mean Corpuscular Volume 82.9 FL 82.5 FL Mean Corpuscular Hemoglobin 27.9 PG 30.2 PG Mean Corpuscular Hemoglobin 33.6 % 36.6 % Concent Red Cell Distribution Width 14.4 % 14.4 % Platelet Count 419 TH/MM3 414 TH/MM3 Mean Platelet Volume 7.8 FL 7.9 FL Neutrophils (%) (Auto) 79.1 % 77.4 % Lymphocytes (%) (Auto) 7.4 % 9.5 % Monocytes (%) (Auto) 10.8 % 10.7 % Eosinophils (%) (Auto) 2.0 % 1.8 % Basophils (%) (Auto) 0.7 % 0.6 % Neutrophils # (Auto) 14.0 TH/MM3 11.2 TH/MM3 Lymphocytes # (Auto) 1.3 TH/MM3 1.4 TH/MM3 Monocytes # (Auto) 1.9 TH/MM3 1.5 TH/MM3 Eosinophils # (Auto) 0.4 TH/MM3 0.3 TH/MM3 Basophils # (Auto) 0.1 TH/MM3 0.1 TH/MM3 CBC Comment AUTO DIFF AUTO DIFF Differential Total Cells 100 100 Counted Neutrophils % (Manual) 64 % 73 % Band Neutrophils % 12 % 10 % Lymphocytes % 11 % 9 % Monocytes % 7 % 2 % Eosinophils % 2 % 4 % Neutrophils # (Manual) 14.2 TH/MM3 12.2 TH/MM3 Myelocytes 4 % Differential Comment FINAL DIFF FINAL DIFF MANUAL MANUAL Platelet Estimate NORMAL NORMAL Platelet Morphology Comment NORMAL NORMAL Urine Color YELLOW Urine Turbidity CLEAR Urine pH 5.5 Urine Specific [place] 1.021 Urine Protein 100 mg/dL Urine Glucose (UA) NEG mg/dL Urine Ketones NEG mg/dL Urine Occult Blood MOD Urine Nitrite NEG Urine Bilirubin NEG Urine Urobilinogen 2.0 MG/DL Urine Leukocyte Esterase NEG Urine RBC 20-24 /hpf Urine WBC 0-2 /hpf Urine Squamous Epithelial 0-5 /hpf Cells Microscopic Urinalysis Comment CATH-CULT NOT IND Metamyelocytes 2 % Sodium Level 132 MEQ/L Potassium Level 4.1 MEQ/L Chloride Level 98 MEQ/L Carbon Dioxide Level 27.2 MEQ/L Anion Gap 7 MEQ/L Blood Urea Nitrogen 16 MG/DL Creatinine 0.86 MG/DL Estimat Glomerular Filtration 121 ML/MIN Rate Random Glucose 96 MG/DL Calcium Level 7.5 MG/DL Total Bilirubin 0.6 MG/DL Direct Bilirubin 0.1 MG/DL Indirect Bilirubin 0.5 MG/DL Aspartate Amino Transf 118 U/L (AST/SGOT) Alanine Aminotransferase 176 U/L (ALT/SGPT) Alkaline Phosphatase 286 U/L Total Protein 7.2 GM/DL Albumin 1.5 GM/DL Lipase 204 U/L 09/13/16 09/13/16 09/14/16 14:59 22:59 06:59 Intake Total 1249 ml 1032 ml 873 ml Output Total 2100 ml 2900 ml 1050 ml Balance -851 ml -1868 ml -177 ml Intake IV Total 799 ml 622 ml 487 ml Tube Feeding 450 ml 410 ml 386 ml Output Urine Total 1750 ml 2200 ml 1000 ml Stool Total 350 ml 700 ml 50 ml # Bowel Movements 1 Medical Decision Making Impression and Plan A: 40 y/o M with Large right cerebellar hemisphere spontaneous hemorrhage likely hypertensive with no underlying vascular abnormality noted. He is status post suboccipital craniectomy with intracranial hemorrhage evacuation and ventriculostomy placement. s/p ventriculostomy removal. P: Continue with blood pressure control Continue with neuro checks Continue with critical care. Edgar Wallace Sep 14, 2016 09:51
[2016-09-14] MEDS: METOCLOPRAMIDE HCL SYRUP 10 MG/10 ML UDC PO SCH ×3 (11:00→20:58)
[2016-09-14] MEDS: oxyCODONE HCL ORAL CONC 20 MG/ML SYRINGE PO SCH ×4 (11:51→23:10)
[2016-09-14] MEDS: OLANZapine ODT 10 MG TAB PO SCH ×2 (12:03→20:56)
[2016-09-14] MEDS: ACETAMINOPHEN 1000 MG/100 ML VIAL IV PRN ×2 (14:06→23:26)
--- NOTE | 2016-09-14 15:11 | PD.CONS ---
HPI History of Present Illness This is a 40 yo male who was transported by [facility] after developing a severe headache and then losing consciousness and requiring intubation. He was found to have a right cerebellar hemorrhage and is sp decompressive posterior fossa craniectomy and still requiring ventilatory support. GI has been consulted for PEG placement. Hx obtained from EMR. (Megha Watson) PFSH Past Medical History Chronic sinusitis status post sinus surgery 10 years ago Urinary incontinence. Past Surgical History Sinus surgery over 10 years ago. . (Megha Watson) Coded Allergies: No Known Allergies (Unverified , 09/09/16) Family History Unable to obtain family history secondary to patient's clinical condition. unaware of any significant family medical history. Patient has 2 children who are alive and well. . (Megha Watson) Review of Systems ROS pt noncontributory (Megha Watson) GI Exam Vitals I&O Vital Signs Date Time Temp Pulse Resp B/P Pulse Ox O2 Delivery O2 Flow Rate FiO2 09/14/16 12:00 40 09/14/16 12:00 98.8 98 22 127/88 99 09/14/16 12:00 98 09/14/16 11:57 100 40 09/14/16 10:00 106 09/14/16 08:13 98 40 09/14/16 08:00 98.2 102 16 123/74 100 09/14/16 08:00 100 Mechanical Ventilator 40 09/14/16 08:00 102 09/14/16 08:00 40 09/14/16 06:00 95 09/14/16 04:18 100 40 09/14/16 04:00 95 09/14/16 04:00 96.8 95 16 124/77 99 09/14/16 04:00 40 09/14/16 02:00 85 09/14/16 00:20 100 40 09/14/16 00:00 65 09/14/16 00:00 97.9 94 16 105/56 98 09/14/16 00:00 40 09/13/16 22:00 93 09/13/16 21:00 117 09/13/16 20:00 40 09/13/16 20:00 100 09/13/16 20:00 100.4 108 20 139/96 98 09/13/16 19:38 100 40 09/13/16 19:00 99 Mechanical Ventilator 40 09/13/16 18:00 100 09/13/16 16:00 102 09/13/16 16:00 40 09/13/16 16:00 98.2 104 17 128/80 100 I/O 09/13/16 09/13/16 09/13/16 09/14/16 09/14/16 09/14/16 07:00 15:00 23:00 07:00 15:00 23:00 Intake Total 1186 ml 1249 ml 1032 ml 873 ml Output Total 1600 ml 2100 ml 2900 ml 1050 ml Balance -414 ml -851 ml -1868 ml -177 ml Intake IV Total 630 ml 799 ml 622 ml 487 ml Tube Feeding 496 ml 450 ml 410 ml 386 ml Other 60 ml Output Urine Total 1600 ml 1750 ml 2200 ml 1000 ml Stool Total 350 ml 700 ml 50 ml # Bowel Movements 1 1 Imaging Last Impressions Chest X-Ray 09/13/16 0000 Signed Impressions: Service Date/Time: Tuesday, September 13, 2016 17:22 - CONCLUSION: Scattered bilateral patchy airspace disease. Edgar Rangel MD Abdomen X-Ray 09/10/16 0000 Signed Impressions: Service Date/Time: September 06:34 - CONCLUSION: Feeding tube tip in the stomach Al Hernandez MD Head CT 09/07/16 0600 Signed Impressions: Service Date/Time: Wednesday, September 07, 2016 06:05 - CONCLUSION: Stable brain appearance. Al Hernandez MD Neck CTA 09/01/162019 Signed Impressions: Service Date/Time: Thursday, September 01, 2016 20:55 - CONCLUSION: Unremarkable exam. The carotid arteries are intact. Ag Saxena MD Head CTA 09/01/162019 Signed Impressions: Service Date/Time: Thursday, September 01, 2016 20:55 - CONCLUSION: The etiology of the patient's right cerebellar h hemorrhage is not identified and there appears to be some infiltrates and possible pleural effusions in the upper lungs that are visualized. Erika Bob MD Laboratory Test 09/14/16 05:55 White Blood Count 14.4 TH/MM3 Red Blood Count 3.62 MIL/MM3 Hemoglobin 10.9 GM/DL Hematocrit 29.8 % Mean Corpuscular Volume 82.5 FL Mean Corpuscular Hemoglobin 30.2 PG Mean Corpuscular Hemoglobin 36.6 % Concent Red Cell Distribution Width 14.4 % Platelet Count 414 TH/MM3 Mean Platelet Volume 7.9 FL Neutrophils (%) (Auto) 77.4 % Lymphocytes (%) (Auto) 9.5 % Monocytes (%) (Auto) 10.7 % Eosinophils (%) (Auto) 1.8 % Basophils (%) (Auto) 0.6 % Neutrophils # (Auto) 11.2 TH/MM3 Lymphocytes # (Auto) 1.4 TH/MM3 Monocytes # (Auto) 1.5 TH/MM3 Eosinophils # (Auto) 0.3 TH/MM3 Basophils # (Auto) 0.1 TH/MM3 CBC Comment AUTO DIFF Differential Total Cells 100 Counted Neutrophils % (Manual) 73 % Band Neutrophils % 10 % Lymphocytes % 9 % Monocytes % 2 % Eosinophils % 4 % Neutrophils # (Manual) 12.2 TH/MM3 Metamyelocytes 2 % Differential Comment FINAL DIFF MANUAL Platelet Estimate NORMAL Platelet Morphology Comment NORMAL Sodium Level 132 MEQ/L Potassium Level 4.1 MEQ/L Chloride Level 98 MEQ/L Carbon Dioxide Level 27.2 MEQ/L Anion Gap 7 MEQ/L Blood Urea Nitrogen 16 MG/DL Creatinine 0.86 MG/DL Estimat Glomerular Filtration 121 ML/MIN Rate Random Glucose 96 MG/DL Calcium Level 7.5 MG/DL Total Bilirubin 0.6 MG/DL Direct Bilirubin 0.1 MG/DL Indirect Bilirubin 0.5 MG/DL Aspartate Amino Transf 118 U/L (AST/SGOT) Alanine Aminotransferase 176 U/L (ALT/SGPT) Alkaline Phosphatase 286 U/L Total Protein 7.2 GM/DL Albumin 1.5 GM/DL Lipase 204 U/L Hepatitis A IgM Antibody NEGATIVE Hepatitis B Surface Antigen NEGATIVE Hepatitis B Core IgM Antibody NEGATIVE Hepatitis C Antibody NEGATIVE Date/Time Procedure Status Source Growth 09/13/16 12:45 Gram Stain - Final Resulted Sputum Endotracheal 09/13/16 12:45 Sputum Culture - Preliminary Resulted Gram Negative Maurice 09/13/16 12:21 Aerobic Blood Culture - Preliminary Resulted Blood Peripheral NO GROWTH IN 1 DAY 09/13/16 12:21 Anaerobic Blood Culture - Preliminary Resulted Blood Peripheral NO GROWTH IN 1 DAY Physical Examination HEENT: normocephalic; atraumatic; no jaundice. CHEST: course sounds CARDIAC: RRR ABDOMEN: Soft, nondistended, nontender; no hepatosplenomegaly; bowel sounds are present in all four quadrants. EXTREMITIES: No clubbing, cyanosis, or edema. SKIN: Normal; no rash; no jaundice. [employer]: on vent (Megha Watson) Assessment and Plan Plan ASSESSMENT - dysphagia/FEN - 40 yo male found to have a right cerebellar hemorrhage, s/p decompressive posterior fossa craniectomy and still requiring ventilatory support. Will do PEG - respiratory failure - per [facility] - malignant HTN - per [facility] PLAN - EGD/PEG placement tomorrow - obtain consents - ok to resume TF - NPO after midnight - further recommendations to follow This pt seen by myself and Dr Louie and this ntoe is written on his behalf ( Megha Watson) Physician Comments Will schedule EGD/PEG in AM . Further recommendations to follow. (Luli Louie MD) Megha Watson Sep 14, 2016 15:11 Luli Louie MD Sep 14, 2016 22:11
--- NOTE | 2016-09-14 19:07 | HHI.CCPN ---
Subjective Remarks/Hospital Course Hospital Course: 40-year-old male with reportedly no significant past medical history who was at work today and was taking out the garbage when he developed "the worse headache of his life". He was screaming in pain and EVAC was called. Upon EVAC arrival his GCS was 13 but rapidly deteriorated to GCS 3. He vomited. He was intubated on the scene without any drugs. CT brain demonstrated a large right cerebellar hemorrhage (4.9 x 5.7 cm) with effacement of the fourth ventricle. He has a very poor neurologic exam with absence of pupillary, corneal, gag, cough, oculocephalic reflexes. Not overbreathing vent but did not formally test apnea. Dr. Ovalles discussed with and she is requesting operative management. He is being taken for emergent CT angiogram and then to OR for evacuation by Dr. Ovalles. Subjective: 09/02: decompressive craniectomy overnight. per report, when he returned from the OR he apparently had a +gag. this morning remains encephalopathic. 09/03: vomiting on sedation vacation yesterday. cardene off. icp's controlled: 9 this AM. still poor neurologic exam. 09/04: on goal TF. no additional vomiting. following commands RUE, RLE. tracking. EVD at 15 cmH2O. ICP controlled. 09/05: still weakly following commands. ICP slightly elevated at 16-17 today. sedation vacation patient gets agitated, tachycardic, hypertensive. sputum growing pansensitive enterobacter. 09/06: still weakly following commands. ICP high overnight for ~30 minutes, but then improved. EVD challenged to 20 cmH2O today. still tachycardic and hypertensive. 09/07: still follows. ICP better controlled. EVD at [address] stable. 09/08: Delayed follow. Agitated when sedation lowered. Vomited early; will place NG to suction. Reglan already on board. We'd like to get to trial extubation for 's sake. Failed SBT today - will try again at higher PS. 09/09 no evidence overnight, no more vomiting, discussed with for tracheostomy placement 09/10: Tracheostomy this morning, CXR fine. DHT in good position, advance 10 cm. 09/11: Comfortable with trach; site clean. Talked with parents at bedside. 09/12: Breathes spontaneously with good excursions. 09/13: Tolerated SBT for several hours yesterday but became agitated and ineffective. Continue weaning efforts. 09/14: still very agitated with sedation vacation. failed SBT for agitation, tachycardia, distress. Objective Vital Signs Date Time Temp Pulse Resp B/P Pulse Ox O2 Delivery O2 Flow Rate FiO2 09/14/16 18:00 116 09/14/16 16:00 40 09/14/16 16:00 100.4 18 128/68 98 09/14/16 08:00 Mechanical Ventilator Intake and Output 09/13/16 09/13/16 09/14/16 08:00 16:00 00:00 Intake Total 1186 ml 1249 ml 1032 ml Output Total 1600 ml 2100 ml 2900 ml Balance -414 ml -851 ml -1868 ml Result Diagram: 09/14/1655409/14/16554 Objective Remarks GENERAL: male with resolving edema. SKIN: Warm and dry. HEAD: healing posterior wound EYES: No scleral icterus. ENT: No nasal bleeding or discharge. Mucous membranes pink and moist. NECK: Trachea midline, trach site clean, dry. CARDIOVASCULAR: . normal rate, regular rhythm. No JVD. RESPIRATORY:CPAP/PSV, fio2 35%. equal chest rise. Large amount mobile secretions. GASTROINTESTINAL: Abdomen soft, non-tender, nondistended No guarding. : Kumar in place MSK: No obvious deformity. No edema. Well perfused, warm. NEUROLOGICAL: Pupils 2 mm, reactive. + cough, gag. FC delayed RUE, RLE. Remains flaccid on left. A/P Assessment and Plan Assessment: 40yM with large posterior fossa IPH now s/p decompressive posterior fossa craniectomy 09/01. encephalopathy slowly improving. still very poor prognosis given size and location of the bleed. goals are aggressive. palliative care consulted. NEURO: Acute cerebellar hemorrhage (ICH Score 4) Agitated Delirium CT brain 09/01/16 - 4.9 x 5.3 cm right cerebellar hemorrhage with effacement of the fourth ventricle. CTA 09/01/16 - No e/o vascular abnormality. s/p Suboccipital craniectomy, cerebellar hemorrhage evacuation, ventriculostomy by Dr. Ovalles 09/01/16 Continue Keppra 500 mg IV every 12 Maintain normothermia with tylenol/cooling blanket prn temp >100.4. Target RASS -1, patient comfort and vent synchrony, frequent neuro checks start zyprexa 10mg po q8h haldol 5mg iv q4h prn for agitation attempt to wean off fentanyl, propofol RESP: Acute hypoxic and hypercarbic respiratory failure Aspiration Intubated at the scene by EVAC with no sedation End tidal CO2 monitoring. Target PaCO2 35-40. Duoneb q6 hours; Albuterol q2 hours prn wheezing Enterobacter, Klebsiella in sputum -> sens to ceftriaxone, q12h dosing started 09/10 trach collar trials. CV: Malignant Hypertension Sinus tachycardia Labetalol and hydralazine prn SBP <150. Nicardipine to maintain systolic blood pressure less than 150 lopressor 5mg iv q4h prn for HR > 90. lopressor 50 bid. norvasc 5 daily GI: Vomiting- resolved. Zofran 4 mg IV q6 hours TF at goal. bowel regimen. FEN/RENAL: Renal insufficiency, unknown baseline creatinine Hypokalemia ICU electrolyte protocol Kumar in place due to critically ill patient in need of accurate I/O monitoring and at risk for urinary obstruction Monitor I/O and creatinine Monitor electrolytes and replace as indicated per ICU electively replacement protocol. ID: sputum growing enterobacter. Large amount of sputum production and e/o aspiration. s/p Unasyn for empiric aspiration coverage, now on Rocephin for Klebsiella pna. HEME: Monitor CBC, post op CBC pending. Coags WNL. Patient was not on anticoagulant or antiplatelet therapy. ENDO: Acute stress hyperglycemia Monitor bedside glucose and initiate low-dose insulin sliding scale as indicated PROPH: SCDs and teds for DVT prophylaxis. Pharmacologic DVT prophylaxis is contraindicated due to acute cerebellar hemorrhage. Protonix 40 mg IV daily for stress ulcer prophylaxis. ACCESS: PICC line Overall impression: Remain in the ICU. Improved respiratory dynamics after trach. Continue vent weaning. Convert to oral BP meds Vasile Knight MD Sep 14, 2016 19:07
[2016-09-15] VITALS (17 sets, daily range): BP systolic 118–135; BP diastolic 70–95; PULSE 88–116; RESP 16–19; TEMP 98.6–101.1; O2SAT 96–100
[2016-09-15] MEDS: CHLORHEXIDINE GLUCONATE 2 % 1 PACK (2 CLOTHS) TOP SCH (03:41)
[2016-09-15] MEDS: OLANZapine ODT 10 MG TAB PO SCH ×4 (04:08→20:00)
[2016-09-15] MEDS: oxyCODONE HCL ORAL CONC 20 MG/ML SYRINGE PO SCH ×6 (04:09→22:25)
[2016-09-15 04:36] LABS: HEMATOCRIT 35.3 % (39.0-51.0); MEAN CELL VOLUME 82.8 FL (80.0-100.0); MEAN CORPUSCULAR HEMOGLOBIN 28.1 PG (27.0-34.0); MEAN CORPUSCULAR HGB CONC 33.9 % (32.0-36.0); PLATELET COUNT 505 TH/MM3 (150-450); RED BLOOD COUNT 4.26 MIL/MM3 (4.50-5.90); RED CELL DISTRIBUTION WIDTH 14.3 % (11.6-17.2); WHITE BLOOD COUNT 17.6 TH/MM3 (4.0-11.0)
[2016-09-15 04:42] LABS: REVIEW FLAG FINAL
[2016-09-15 05:16] LABS: BICARBONATE 28.2 MEQ/L (21.0-32.0)
[2016-09-15 05:20] LABS: POTASSIUM 4.4 MEQ/L (3.5-5.1)
[2016-09-15] MEDS: INSULIN ASPART SUPPLEMENTAL SCALE SQ SCH ×4 (06:00→23:18)
[2016-09-15] MEDS: PROPOFOL 1000 MG/100 ML INJ 100 ML IV SCH (06:10)
[2016-09-15] MEDS: METOCLOPRAMIDE HCL SYRUP 10 MG/10 ML UDC PO SCH ×5 (06:10→21:00)
[2016-09-15] MEDS ORDERED: DEXMEDETOMIDINE INJ 50 ML IV SCH (08:15)
[2016-09-15] MEDS: RESP: ALBUTEROL 2.5 MG/3 ML NEB (PRN) INH ×2 (08:46→17:43)
[2016-09-15] MEDS: levETIRAcetam INJ 500 MG in SODIUM CHLORIDE 0.9% INJ 100 ML IV SCH ×2 (08:55→21:00)
[2016-09-15] MEDS: amLODIPine BESYLATE 5 MG TAB PO SCH (08:56)
[2016-09-15] MEDS: PANTOPRAZOLE SODIUM 40 MG VIAL IV SCH (08:56)
[2016-09-15] MEDS: SODIUM CHLORIDE 0.9% FLUSH 10 ML FLUSH IV FLUSH SCH (08:56)
[2016-09-15] MEDS: BISACODYL 10 MG SUPP RECTAL SCH (09:00)
[2016-09-15] MEDS: DOCUSATE SODIUM 50 MG/SENNA 8.6 MG TAB PO SCH ×2 (09:00→21:00)
[2016-09-15] MEDS: SODIUM CHLORIDE 0.9% FLUSH 10 ML FLUSH SCH ×2 (09:00→21:00)
[2016-09-15] MEDS: PROPRANOLOL HCL 20 MG TAB PO SCH ×4 (09:03→22:00)
[2016-09-15] MEDS: CHLORHEXIDINE 0.12% (ORAL KIT) 15 ML CUP MT SCH ×2 (09:03→20:00)
--- NOTE | 2016-09-15 09:13 | HHI.NSPN ---
History Chief Complaint: ICH s/p suboccipital craniectomy for evacuation. Interval History 40-year-old gentleman postop day #1 status post right suboccipital craniectomy with cerebellar hemorrhage evacuation and ventriculostomy placement. His ICPs have been normal postoperatively. When sedation was held he vomited and was noted to have some eye opening and right-sided movements per the nursing staff. 09/03/16: Pt sedated on Diprivan. Decreased by RN and pt reported tracked to right side. at bedside states he had some spontaneous movement in RUE and RLE. Pts bp increases and requires sedation and anti hypertensive meds. 09/04/16: Pt sedated on Diprivan. When sedation decreased by RN patient opens both eyes and follow commands on the right side. He has left hemiplegia. Patient intubated and sedated. 09/07/16: Pt on sedation vacation currently this morning. He opens both eyes. Pupils 4mm bilaterally reactive bilaterally. Follows simple commands right side , has delayed response. Ventriculostomy drain in place at 20 cmH20, ICP14. Follow up CT head reviewed stable. 09/08/16: Pt sedated on Diprivan. Had episode of vomiting this morning. Follows intermittently right side. Left hemiparesis. Ventriculostomy drain in place at [id number]. ICP 7. 09/10/16: Pt sedation held this morning RN and pt coughing on vent and turned back on. Trach was done this morning. Not following commands, sedated. Ventric clamped ICP 3. 09/11/16: Pt on Diprivan and Fentanyl drips. Not opening eyes or following commands. Trach in place on Vent. Ventriculostomy drain in place ICPs remain normal, 3. 09/14/16: Patient on Diprivan and fentanyl drips. When held by RN this morning patient opens both eyes and would blink to command. He gripped his right hand to move his right leg to command. Left hemiplegia. 09/15/16: Pt on Diprivan drip. Off Fentanyl drip. Pt has thick secretions from trach per RN also periods of shivers. System Review Comments Not able to obtain given clinical condition. Exam Results Vital Signs Date Time Temp Pulse Resp B/P Pulse Ox O2 Delivery O2 Flow Rate FiO2 09/15/16 08:48 97 40 09/15/16 07:10 18 09/15/16 06:00 108 09/15/16 04:00 99.1 129/84 09/14/16 19:00 Mechanical Ventilator Intake and Output 09/14/16 09/14/16 09/15/16 08:00 16:00 00:00 Intake Total 873 ml 921 ml 715 ml Output Total 1050 ml 1600 ml 1900 ml Balance -177 ml -679 ml -1185 ml Physical Examination Resp: Trach in place clear to auscultation bilaterally. Pressure control. Rate 16. FiO2 40% Peep 5. Thick secretions on suctioning. Heart: NSR no murmurs Abd: Soft diminished bs Skin: Incision clean and dry. Healing well. Muscle: Moves right side to command when sedation held by RN. Left hemiplegia. Neuro: Pt sedated on Diprivan for vent. Pupils are 2 mm bilaterally and reactive bilaterally. Patient follows commands on the right side when sedation held. No movement on left side. Lab, Micro, Other Results Laboratory Tests Test 09/14/16 09/15/16 12:45 04:15 Prealbumin 19 MG/DL Procalcitonin 0.48 ng/mL White Blood Count 17.6 TH/MM3 Red Blood Count 4.26 MIL/MM3 Hemoglobin 12.0 GM/DL Hematocrit 35.3 % Mean Corpuscular Volume 82.8 FL Mean Corpuscular Hemoglobin 28.1 PG Mean Corpuscular Hemoglobin 33.9 % Concent Red Cell Distribution Width 14.3 % Platelet Count 505 TH/MM3 Mean Platelet Volume 7.9 FL Sodium Level 134 MEQ/L Potassium Level 4.4 MEQ/L Chloride Level 98 MEQ/L Carbon Dioxide Level 28.2 MEQ/L Anion Gap 8 MEQ/L Blood Urea Nitrogen 17 MG/DL Creatinine 1.10 MG/DL Estimat Glomerular Filtration 91 ML/MIN Rate Random Glucose 115 MG/DL Calcium Level 9.2 MG/DL 09/14/16 09/14/16 09/15/16 15:00 23:00 07:00 Intake Total 921 ml 715 ml 345 ml Output Total 1600 ml 1900 ml 2500 ml Balance -679 ml -1185 ml -2155 ml Intake IV Total 526 ml 318 ml 345 ml Tube Feeding 223 ml 367 ml Lipid 112 ml Tube Irrigant 30 ml Other 60 ml Output Urine Total 1600 ml 1900 ml 2500 ml Stool Total 0 ml 0 ml 0 ml Medical Decision Making Impression and Plan A: 40 y/o M with Large right cerebellar hemisphere spontaneous hemorrhage likely hypertensive with no underlying vascular abnormality noted. He is status post suboccipital craniectomy with intracranial hemorrhage evacuation and ventriculostomy placement. s/p ventriculostomy removal. P: Continue with blood pressure control Continue with neuro checks Continue with critical care. Edgar Wallace Sep 15, 2016 09:13
[2016-09-15] MEDS ORDERED: DEXMEDETOMIDINE 200 MCG in NS 50 ML IV SCH (09:15)
[2016-09-15] MEDS: ACETAMINOPHEN 1000 MG/100 ML VIAL IV PRN (09:29)
[2016-09-15] MEDS: CEFEPIME INJ 2,000 MG in SODIUM CHLORIDE 0.9% INJ 100 ML IV SCH ×2 (10:36→16:45)
--- NOTE | 2016-09-15 10:42 | RADRPT ---
EXAM DATE/TIME: 09/15/2016 10:02 [facility] COMPARISON: CHEST SINGLE AP, September 01, 2016, 19:52. CHEST SINGLE AP, September 13, 2016, 17:22. INDICATIONS : Consolidation. MEDICAL HISTORY : Stroke. high blood pressure. SURGICAL HISTORY : ENCOUNTER: Initial ACUITY: 1 week PAIN SCORE: Non-responsive. LOCATION: Bilateral chest FINDINGS: Single portable frontal view the chest shows bilateral patchy parenchymal infiltrates which are large ly unchanged the prior study. Heart is normal in size. Tracheostomy tube, nasogastric tube, and right -sided PICC line are again noted. No effusions. CONCLUSION: Unchanged bilateral infiltrates. Alexis Maddox Jr., MD on September 15, 2016 at 10:37 Board Certified Radiologist. This report was verified electronically.
[2016-09-15] MEDS: DEXMEDETOMIDINE INJ 400 MCG in SODIUM CHLORIDE 0.9% INJ 96 ML IV SCH ×4 (10:57→22:25)
[2016-09-15] MEDS ORDERED: PROPOFOL 200 MG/20 ML AMP IV PUSH ONE (12:44)
--- NOTE | 2016-09-15 12:47 | GIPROC ---
[facility] [address] [facility]. [facility], [address] EGD WITH PEG PROCEDURE REPORT EXAM DATE: 09/15/2016 PATIENT NAME: Lori Isabel MR#: [id number] BIRTHDATE: 1975 ATTENDING: Luli Louie MD ORDER #: [id number] HEALTH ANALYST: Horacio Cordova RELIEF DRILLER STATUS: inpatient INDICATIONS: The patient is a 40 yr old male here for an EGD with PEG due to placement of PEG PROCEDURE PERFORMED: EGD, diagnostic MEDICATIONS: Per Anesthesia and None. TOPICAL ANESTHETIC: none CONSENT: The patient understands the risks and benefits of the procedure and understands that these risks include, but are not limited to: sedation, allergic reaction, infection, perforation and/or bleeding. Alternative means of evaluation and treatment include, among others: physical exam, x-rays, and/or surgical intervention. The patient elects to proceed with this endoscopic procedure. medical equipment was checked for proper function. Hand hygiene and appropriate measures for infection prevention was taken. After the risks, benefits and alternatives of the procedure were thoroughly explained, Informed consent was verified, confirmed and timeout was successfully executed by the treatment team. The patient was anesthetized with topical anesthesia and the [employer]ax [id number] endoscope was introduced through the mouth and advanced to the second portion of the duodenum. The instrument was slowly withdrawn as the mucosa was fully examined. The upper, middle, and distal third of the esophagus were carefully inspected and no abnormalities were noted. The z-line was well seen at the GEJ. The endoscope was pushed into the fundus which was normal including a retroflexed view. The antrum, first and second part of the duodenum were unremarkable. The stomach was then inflated with air, and by a combination of transillumination and manual palpation, the site for the gastrostomy tube placement was selected and marked on the anterior abdominal wall. The skin of the anterior abdomen was surgically prepped and draped with sterile towels. Utilizing strict sterile technique, the selected site was then anesthetized with 1% xylocaine by injection into the skin and subcutaneous tissue. A 1 cm incision was made through the skin and subcutaneous tissue, and the needle/cannula assembly was then passed through the abdominal wall and through the anterior wall of the stomach, maintaining visualization with the endoscope. A snare device previously placed through the instrument channel was then opened and placed around the cannula, the needle was removed, and the insertion wire was passed through the cannula and into the stomach lumen. The snare was then loosened from the cannula, and repositioned to snare the insertion wire. The snare was then pulled up to the endoscope distal tip, and the scope was then withdrawn bringing with it the snare and insertion wire. The insertion wire was then released from the snare, and then loop-attached to the gastrostomy tube. Using the "pull technique", the G-tube was then pulled into place by traction on the insertion wire at the abdominal wall end. The G-tube insertion site was then cleansed once again, and the external bolster was placed over the tube to secure it to the abdominal wall. A sterile dressing was then applied, and the procedure terminated. no abnormalities The gastroscope was then slowly withdrawn and removed. ADVERSE EVENT: There were no complications. IMPRESSIONS: 1. The upper, middle, and distal third of the esophagus were carefully inspected and no abnormalities were noted. The z-line was well seen at the GEJ. The endoscope was pushed into the fundus which was normal including a retroflexed view. The antrum, first and second part of the duodenum were unremarkable. 2. No transillumination of the light seen , PEG tube not placed. RECOMMENDATIONS: IR for G tube placemnet REPEAT EXAM: procedure as needed Luli Louie MD eSigned: Luli Louie MD 09/15/2016 12:47 PM cc: PATIENT NAME: Lori Isabel MR#: [id number]
--- NOTE | 2016-09-15 13:19 | HHI.CCPN ---
Subjective Remarks/Hospital Course Hospital Course: 40-year-old male with reportedly no significant past medical history who was at work today and was taking out the garbage when he developed "the worse headache of his life". He was screaming in pain and EVAC was called. Upon EVAC arrival his GCS was 13 but rapidly deteriorated to GCS 3. He vomited. He was intubated on the scene without any drugs. CT brain demonstrated a large right cerebellar hemorrhage (4.9 x 5.7 cm) with effacement of the fourth ventricle. He has a very poor neurologic exam with absence of pupillary, corneal, gag, cough, oculocephalic reflexes. Not overbreathing vent but did not formally test apnea. Dr. Ovalles discussed with and she is requesting operative management. He is being taken for emergent CT angiogram and then to OR for evacuation by Dr. Ovalles. Subjective: 09/02: decompressive craniectomy overnight. per report, when he returned from the OR he apparently had a +gag. this morning remains encephalopathic. 09/03: vomiting on sedation vacation yesterday. cardene off. icp's controlled: 9 this AM. still poor neurologic exam. 09/04: on goal TF. no additional vomiting. following commands RUE, RLE. tracking. EVD at 15 cmH2O. ICP controlled. 09/05: still weakly following commands. ICP slightly elevated at 16-17 today. sedation vacation patient gets agitated, tachycardic, hypertensive. sputum growing pansensitive enterobacter. 09/06: still weakly following commands. ICP high overnight for ~30 minutes, but then improved. EVD challenged to 20 cmH2O today. still tachycardic and hypertensive. 09/07: still follows. ICP better controlled. EVD at [address] stable. 09/08: Delayed follow. Agitated when sedation lowered. Vomited early; will place NG to suction. Reglan already on board. We'd like to get to trial extubation for 's sake. Failed SBT today - will try again at higher PS. 09/09 no evidence overnight, no more vomiting, discussed with for tracheostomy placement 09/10: Tracheostomy this morning, CXR fine. DHT in good position, advance 10 cm. 09/11: Comfortable with trach; site clean. Talked with parents at bedside. 09/12: Breathes spontaneously with good excursions. 09/13: Tolerated SBT for several hours yesterday but became agitated and ineffective. Continue weaning efforts. 09/14: still very agitated with sedation vacation. failed SBT for agitation, tachycardia, distress. 09/15: agitation slightly better today with addition of precedex. plan for PEG tube today. sputum growing now resistant enterobacter, and secretions are more tenacious today. Objective Vital Signs Date Time Temp Pulse Resp B/P Pulse Ox O2 Delivery O2 Flow Rate FiO2 09/15/16 11:15 97 40 09/15/16 10:00 114 09/15/16 08:00 Mechanical Ventilator 09/15/16 08:00 99.1 18 131/90 Intake and Output 09/14/16 09/14/16 09/15/16 08:00 16:00 00:00 Intake Total 873 ml 921 ml 715 ml Output Total 1050 ml 1600 ml 1900 ml Balance -177 ml -679 ml -1185 ml Result Diagram: 09/15/16 0415 09/15/16 0415 Other Results Microbiology Date/Time Procedure Status Source Growth 09/13/16 12:45 Gram Stain - Final Complete Sputum Endotracheal 09/13/16 12:45 Sputum Culture - Final Complete Enterobacter Aerogenes Objective Remarks GENERAL: male with resolving edema. SKIN: Warm and dry. HEAD: healing posterior wound EYES: No scleral icterus. ENT: No nasal bleeding or discharge. Mucous membranes pink and moist. NECK: Trachea midline, trach site clean, dry. CARDIOVASCULAR: . normal rate, regular rhythm. No JVD. RESPIRATORY:CPAP/PSV, fio2 50%. equal chest rise. Large amount mobile secretions , these are thick and zamarripa. GASTROINTESTINAL: Abdomen soft, non-tender, nondistended No guarding. : Kumar in place MSK: No obvious deformity. No edema. Well perfused, warm. NEUROLOGICAL: Pupils 2 mm, reactive. + cough, gag. FC delayed RUE, RLE. Remains flaccid on left. A/P Assessment and Plan Assessment: 40yM with large posterior fossa IPH now s/p decompressive posterior fossa craniectomy 09/01. encephalopathy slowly improving. still very poor prognosis given size and location of the bleed. goals are aggressive. palliative care consulted. Secretions are worse today. procalcitonin suggestive of low liklihood of sepsis, but sputum growing resistant enterobacter , and wbc elevated with worsening fevers. he is critically ill and in particular his worsening pulmonary status with persistent infection is life- threatening at this point. NEURO: Acute cerebellar hemorrhage (ICH Score 4) Agitated Delirium CT brain 09/01/16 - 4.9 x 5.3 cm right cerebellar hemorrhage with effacement of the fourth ventricle. CTA 09/01/16 - No e/o vascular abnormality. s/p Suboccipital craniectomy, cerebellar hemorrhage evacuation, ventriculostomy by Dr. Ovalles 09/01/16 Continue Keppra 500 mg IV every 12 Maintain normothermia with tylenol/cooling blanket prn temp >100.4. Target RASS -1, patient comfort and vent synchrony, frequent neuro checks zyprexa 10mg po q8h haldol 5mg iv q4h prn for agitation oxycodone 10mg po q4h scheduled for pain or discomfort in attempt to wean from fentanyl. attempt to wean off fentanyl, propofol add precedex to attempt to wean from propofol. RESP: Acute hypoxic and hypercarbic respiratory failure Aspiration Intubated at the scene by EVAC with no sedation End tidal CO2 monitoring. Target PaCO2 35-40. Duoneb q6 hours; Albuterol q2 hours prn wheezing Enterobacter, Klebsiella in sputum, now enterobacter is resistant to Rocephin. d /c rocephin and start cefepime 2gm iv q8h. failing SBTs for tachycardia and agitation. we may need to perform therapeutic bronch today if secretions do not improve. CV: Malignant Hypertension Sinus tachycardia Labetalol and hydralazine prn SBP <150. lopressor 5mg iv q4h prn for HR > 90. hold lopressor. start propranolol 20mg po q8h for tachycardia and agitation. norvasc 5 daily GI: Vomiting- resolved. Zofran 4 mg IV q6 hours TF at goal. bowel regimen. FEN/RENAL: Renal insufficiency, unknown baseline creatinine Hypokalemia ICU electrolyte protocol Kumar in place due to critically ill patient in need of accurate I/O monitoring and at risk for urinary obstruction Monitor I/O and creatinine Monitor electrolytes and replace as indicated per ICU electively replacement protocol. ID: sputum growing enterobacter, now resistant. Large amount of sputum production and e/o aspiration. s/p Unasyn for empiric aspiration coverage - s/p Rocephin 09/10 - 09/15, but now enterobacter is resistant. - start cefepime 2gm iv q8h - ID consult to assist with duration of abx therapy. HEME: Monitor CBC, post op CBC pending. Coags WNL. Patient was not on anticoagulant or antiplatelet therapy. ENDO: Acute stress hyperglycemia Monitor bedside glucose and initiate low-dose insulin sliding scale as indicated PROPH: SCDs and teds for DVT prophylaxis. Pharmacologic DVT prophylaxis is contraindicated due to acute cerebellar hemorrhage. Protonix 40 mg IV daily for stress ulcer prophylaxis. ACCESS: PICC line Overall impression: Remain in the ICU. much worse today given worsening pneumonia and pulmonary status, as well as agitation. critically ill and off pathway. any removal of care at this point would be fatal. This patient remains critically ill with one or more organ systems which are or may become a threat to life. I have spent in excess of 33 minutes discontinuously in the care and management of this patient. This time is exclusive of procedures, and includes, but is not limited to, evaluation of the patient, review of the medical record, discussions with family, consultants, nursing staff, or respiratory therapy, and documentation in the medical record. Vasile Knight MD Sep 15, 2016 13:19
[2016-09-16] VITALS (24 sets, daily range): BP systolic 111–134; BP diastolic 70–98; PULSE 72–95; RESP 16–21; TEMP 98.6–99.7; O2SAT 95–100
[2016-09-16] MEDS: CEFEPIME INJ 2,000 MG in SODIUM CHLORIDE 0.9% INJ 100 ML IV SCH ×3 (01:12→17:53)
[2016-09-16 03:21] LABS: HEMATOCRIT 32.6 % (39.0-51.0); MEAN CELL VOLUME 81.5 FL (80.0-100.0); MEAN CORPUSCULAR HEMOGLOBIN 28.1 PG (27.0-34.0); MEAN CORPUSCULAR HGB CONC 34.5 % (32.0-36.0); PLATELET COUNT 538 TH/MM3 (150-450); RED CELL DISTRIBUTION WIDTH 14.3 % (11.6-17.2); REVIEW FLAG FINAL; WHITE BLOOD COUNT 20.6 TH/MM3 (4.0-11.0)
[2016-09-16 03:41] LABS: BICARBONATE 27.4 MEQ/L (21.0-32.0); POTASSIUM 4.2 MEQ/L (3.5-5.1)
[2016-09-16] MEDS: oxyCODONE HCL ORAL CONC 20 MG/ML SYRINGE PO SCH ×6 (03:55→22:09)
[2016-09-16] MEDS: CHLORHEXIDINE GLUCONATE 2 % 1 PACK (2 CLOTHS) TOP SCH (04:00)
[2016-09-16] MEDS: OLANZapine ODT 10 MG TAB PO SCH ×3 (04:00→20:18)
[2016-09-16] MEDS: ACETAMINOPHEN 1000 MG/100 ML VIAL IV PRN (05:00)
[2016-09-16] MEDS: INSULIN ASPART SUPPLEMENTAL SCALE SQ SCH ×4 (05:18→23:20)
[2016-09-16] MEDS: PROPRANOLOL HCL 20 MG TAB PO SCH ×3 (06:00→22:08)
[2016-09-16] MEDS: METOCLOPRAMIDE HCL SYRUP 10 MG/10 ML UDC PO SCH ×4 (06:16→20:18)
[2016-09-16] MEDS: DEXMEDETOMIDINE INJ 400 MCG in SODIUM CHLORIDE 0.9% INJ 96 ML IV SCH ×3 (07:56→18:14)
[2016-09-16] MEDS: CHLORHEXIDINE 0.12% (ORAL KIT) 15 ML CUP MT SCH ×2 (08:00→20:00)
[2016-09-16] MEDS: DOCUSATE SODIUM 50 MG/SENNA 8.6 MG TAB PO SCH ×2 (09:00→20:18)
[2016-09-16] MEDS: amLODIPine BESYLATE 5 MG TAB PO SCH (09:00)
[2016-09-16] MEDS: BISACODYL 10 MG SUPP RECTAL SCH (09:00)
[2016-09-16] MEDS ORDERED: MIDAZOLAM HCL 2 MG/2 ML VIAL ONE (10:49)
--- NOTE | 2016-09-16 10:57 | PD.ID.CON ---
History of Present Illness Service ID Consult Requested By Reason for Consult Evaluation and Mment of Enterobacter pneumonia resistant and still with tenacious secretions. Primary Care Physician Unknown Diagnoses: History of Present Illness Mr. Isabel is a 40-year-old male with reportedly no significant past medical history who was reportedly at work and doing fairly okay. Per review of records it appears that he was taking out the garbage at work when he developed a worse headache of his life. He started screaming in pain and bystanders called Danielle and patient was admitted to the hospital. Upon E back arrival his GCS was 13 but he rapidly deteriorated to GCS of 3. There is a reported history of vomiting on admission making a candidate for aspiration risk. He was intubated emergently for airway protection. CT brain done on admission showed a large right cerebellar hemorrhage 4.9 x 5.7 cm with effacement of the fourth ventricle. A neurosurgery consult was called in on the patient underwent a right suboccipital craniectomy with evacuation of cerebellar hemorrhage, right frontal juliana hole with ventriculostomy. Patient continued to be an aspiration risk as well as failed SBTs. Eventually patient ended up being trached and is currently on his way for PEG tube placement. During the course of hospitalization due to his vomiting he developed pneumonia. His sputum cultures grew Enterobacter aerogenes. He was treated with cefepime IV his chest x-ray is improved but not completely and continues to have a right-sided basal infiltrate. Clinically patient has a zamarripa colored to me she is seeing secretions needing frequent suctioning but compared to yesterday the nurse reports this has gone down today. Patient developed fevers on September and has continued to be on antibiotics. ID consulted for evaluation and management of Enterobacter aerogenes multidrug resistant pneumonia. Patient is currently not on any pressors at remains on a ventilator. Review of Systems ROS Limitations: Intubated, Altered Mental Status Past Family Social History Allergies: Coded Allergies: No Known Allergies (Unverified , 09/09/16) Past Medical History No known medical history. Past Surgical History None review of records. Reported Medications None Active Ordered Medications Current Medications Medications (Trade) Dose Ordered Sig/Demetris Route Start Time Stop Time Status Last Admin (NS Flush) 2 ml UNSCH PRN .XX 09/01/16 21:00 (NS Flush) 2 ml BID .XX 09/01/16 21:00 09/15/16 21:00 (Tylenol) 650 mg Q6H PRN OG-TUBE 09/01/16 21:00 Hold (Protonix Inj) 40 mg DAILY IV 09/02/16 09:00 09/15/16 08:56 Miscellaneous Information 1 Q361D XX 09/01/16 21:00 (Chlorhexidine 2% Cloth) Taper DAILY@04 TOP 09/02/16 04:00 08/29/17 03:59 09/16/16 04:00 Chlorhexidine Gluconate 3 pack 3 pack UNSCH PRN TOP 09/01/16 21:00 Levetriacetam 500 mg/Sodium Chloride 105 ml @ 420 mls/hr Q12HR IV 09/02/16 09:00 09/15/16 21:00 Potassium Chloride 100 ml @ 50 mls/hr Q2H PRN IV 09/01/16 21:15 09/02/16 04:54 (KCl 20 Meq Premix Inj) 100 ml @ 50 mls/hr Q2H PRN IV 09/01/16 21:15 Potassium Bicarb/ Potassium Chloride 50 meq 50 meq UNSCH PRN PO 09/01/16 21:15 Potassium Chloride 100 ml @ 25 mls/hr UNSCH PRN IV 09/01/16 21:15 Potassium Chloride 100 ml @ 50 mls/hr Q2H PRN IV 09/01/16 21:15 (Magnesium Sulfate Inj/NS Inj) 100 ml @ 50 mls/hr UNSCH PRN IV 09/01/16 21:15 Magnesium Oxide 800 mg 800 mg UNSCH PRN PO 09/01/16 21:15 (Magnesium Sulfate Inj/NS Inj) 100 ml @ 50 mls/hr UNSCH PRN IV 09/01/16 21:15 09/02/16 08:18 Potassium Phosphate 2000 mg 2,000 mg Q4H PRN PO 09/01/16 21:15 (Sodium Phosphate Inj/NS 250 ml Inj) 250 ml @ 42 mls/hr UNSCH PRN IV 09/01/16 21:15 09/02/16 08:18 (K-Phos) 2,000 mg UNSCH PRN PO/TUBE 09/01/16 21:15 (D50w (Vial) Inj) 50 ml UNSCH PRN IV 09/01/16 21:15 (Glucagon Inj) 1 mg UNSCH PRN OTHER 09/01/16 21:15 Chlorhexidine Gluconate 15 ml 15 ml BID@08,20 MT 09/02/16 08:00 09/15/16 20:00 (Diprivan 1000 Mg/100ml Inj) 100 ml @ 0 mls/hr TITRATE IV 09/02/16 00:30 09/15/16 06:10 (Trandate Inj) 10 mg Q4H PRN IV PUSH 09/02/16 00:45 09/10/16 22:40 (Ofirmev Inj) 1,000 mg Q6H PRN IV 09/02/16 01:00 09/16/16 05:00 (Zofran Inj) 4 mg Q6HR PRN IV PUSH 09/02/16 01:00 09/08/16 09:15 (Reglan Liq) 10 mg ACHS PO 09/03/16 11:00 09/16/16 06:16 (Dulcolax Supp) 10 mg DAILY RECTAL 09/04/16 09:00 09/09/16 08:37 (Tania-Colace) 1 tab BID PO 09/03/16 09:45 09/15/16 21:00 Metoprolol Tartrate 5 mg 5 mg Q4H PRN IV PUSH 09/06/16 10:15 09/13/16 04:13 (fentaNYL DRIP) 250 ml @ 0 mls/hr TITRATE IV 09/08/16 23:30 09/13/16 18:19 (NS Flush) See Protocol DAILY IV FLUSH 09/11/16 09:00 09/15/16 08:56 (NS Flush) See Protocol UNSCH PRN IV FLUSH 09/10/16 14:45 (Heparin Central Flush) See Protocol DAILY IV FLUSH 09/11/16 09:00 09/15/16 08:56 (Heparin Central Flush) See Protocol UNSCH PRN IV FLUSH 09/10/16 14:45 09/14/16 05:40 (NS Flush) UNSCH PRN IV FLUSH 09/10/16 14:45 (Thorazine Inj) 25 mg Q4H PRN IM 09/12/16 09:30 09/13/16 19:50 (Lopressor) 50 mg Q12HR PO 09/13/16 09:15 Hold 09/14/16 20:56 (Norvasc) 5 mg DAILY PO 09/13/16 09:15 09/15/16 08:56 (Haldol Inj) 5 mg Q4H PRN IV PUSH 09/14/16 10:45 (ZyPREXA ZYDIS ODT) 10 mg Q8H PO 09/14/16 12:00 09/16/16 04:00 (Dilaudid Pf Inj) 0.5 mg Q4H PRN IV PUSH 09/14/16 10:45 (Roxicodone Intensol Liq) 10 mg Q4H PO 09/14/16 11:00 09/16/16 07:58 (NovoLOG SUPPLEMENTAL SCALE) 1 Q6H SQ 09/14/16 18:00 Propranolol HCl 20 mg 20 mg Q8HR PO 09/15/16 06:23 09/16/16 06:00 Cefepime HCl 2000 mg/Sodium Chloride 100 ml @ 200 mls/hr Q8H IV 09/15/16 10:00 09/16/16 01:12 (Precedex Inj/NS Inj) 100 ml @ 0 mls/hr TITRATE IV 09/15/16 09:45 09/16/16 07:56 Family History Could not be obtained. Social History Is . Physical Exam Vital Signs Vital Signs Date Time Temp Pulse Resp B/P Pulse Ox O2 Delivery O2 Flow Rate FiO2 09/16/16 08:00 78 09/16/16 08:00 40 09/16/16 08:00 98.6 09/16/16 08:00 16 112/70 97 09/16/16 07:51 97 40 09/16/16 07:00 97 40 09/16/16 06:00 95 09/16/16 04:06 95 40 09/16/16 04:00 40 09/16/16 04:00 88 09/16/16 04:00 99.1 88 21 111/74 100 09/16/16 02:00 89 09/16/16 00:05 96 40 09/16/16 00:00 90 09/16/16 00:00 99.7 90 17 113/75 96 09/16/16 00:00 40 09/15/16 22:00 97 09/15/16 20:26 100 40 09/15/16 20:00 100 09/15/16 20:00 40 09/15/16 20:00 99.7 100 19 118/82 100 09/15/16 19:00 100 Mechanical Ventilator 40 09/15/16 18:00 102 09/15/16 17:45 19 09/15/16 16:00 88 09/15/16 16:00 98.6 89 19 122/86 96 09/15/16 16:00 40 09/15/16 14:00 92 09/15/16 12:00 98.6 92 16 135/95 100 09/15/16 12:00 92 09/15/16 12:00 40 09/15/16 11:15 97 40 Physical Exam GENERAL: male SKIN: Warm and dry. HEAD: healing posterior wound with no e.o infection. EYES: No scleral icterus. ENT: No nasal bleeding or discharge. Mucous membranes pink and moist. NECK: Trachea midline, trach site clean, dry. CARDIOVASCULAR: normal rate, regular rhythm. No JVD. RESPIRATORY: CTA B/L, No adv sounds. Decreased AE in bases. GASTROINTESTINAL: Abdomen soft, non-tender, nondistended No guarding. : Kumar in place MSK: No obvious deformity. No edema. Well perfused, warm. NEUROLOGICAL: Pupils 2 mm, reactive. RUE, RLE. Remains flaccid on left. Psych could not be assessed Kumar in place. PICC line site with no e.o infection. Laboratory Laboratory Tests Test 09/16/16 03:00 White Blood Count 20.6 Red Blood Count 4.00 Hemoglobin 11.3 Hematocrit 32.6 Mean Corpuscular Volume 81.5 Mean Corpuscular Hemoglobin 28.1 Mean Corpuscular Hemoglobin 34.5 Concent Red Cell Distribution Width 14.3 Platelet Count 538 Mean Platelet Volume 7.8 Sodium Level 139 Potassium Level 4.2 Chloride Level 101 Carbon Dioxide Level 27.4 Anion Gap 11 Blood Urea Nitrogen 26 Creatinine 1.16 Estimat Glomerular Filtration 85 Rate Random Glucose 114 Calcium Level 9.6 Date/Time Procedure Status Source Growth 09/13/16 12:45 Gram Stain - Final Complete Sputum Endotracheal 09/13/16 12:45 Sputum Culture - Final Complete Enterobacter Aerogenes 09/13/16 12:21 Aerobic Blood Culture - Preliminary Resulted Blood Peripheral NO GROWTH IN 2 DAYS 09/13/16 12:21 Anaerobic Blood Culture - Preliminary Resulted Blood Peripheral NO GROWTH IN 2 DAYS Result Diagram: 09/16/16 0300 09/16/16 0300 Imaging Last Impressions Chest X-Ray 09/15/16 0000 Signed Impressions: Service Date/Time: Thursday, September 15, 2016 10:02 - CONCLUSION: Unchanged bilateral infiltrates. Alexis Maddox Jr., MD Abdomen X-Ray 09/10/16 0000 Signed Impressions: Service Date/Time: September 06:34 - CONCLUSION: Feeding tube tip in the stomach Al Hernandez MD Head CT 09/07/16 0600 Signed Impressions: Service Date/Time: Wednesday, September 07, 2016 06:05 - CONCLUSION: Stable brain appearance. Al Hernandez MD Neck CTA 09/01/162019 Signed Impressions: Service Date/Time: Thursday, September 01, 2016 20:55 - CONCLUSION: Unremarkable exam. The carotid arteries are intact. Ag Saxena MD Head CTA 09/01/162019 Signed Impressions: Service Date/Time: Thursday, September 01, 2016 20:55 - CONCLUSION: The etiology of the patient's right cerebellar h hemorrhage is not identified and there appears to be some infiltrates and possible pleural effusions in the upper lungs that are visualized. Erika Bob MD Assessment and Plan Assessment and Plan Enterobacter aerogenes Pneumonia (resistant to Rocephin, cefepime S, Tobra S) Respiratory failure s.p Trach Large right cerebellar hemorrhage 4.9 x 5.7 cm with effacement of the fourth ventricle. H/o Ventric during this admission. Recs: Continue Cefepime IV for now Start Tobramycin nebulizations If continues to improve on this regimen no change in plan. At this point he seems to be tracheobronchitis predominant respiratory infection. Pneumonia appears improved compared to prior Xrays. If has new fevers or change in clinical condition escalation of regimen will be considered. Clinically stable at this point would like to assess response to above regimen. Follow cultures Follow clinically. I will be OOT from 09/17 to 09/20. covering for me 09/17 to 09/18. covering for me this weekend. Rachel Torrez MD Sep 16, 2016 10:57
[2016-09-16] MEDS ORDERED: GLUCAGON 1 MG/ML VIAL ONE (11:02)
[2016-09-16] MEDS: PANTOPRAZOLE SODIUM 40 MG VIAL IV SCH (11:34)
--- NOTE | 2016-09-16 11:34 | PD.RAD ---
Post Procedure Progress Note Pre Procedure Diagnosis: (1) Spontaneous intraparenchymal intracranial hemorrhage, acute Post Procedure Diagnosis: (1) Spontaneous intraparenchymal intracranial hemorrhage, acute Procedure Date: Sep 16, 2016 Supervising Radiologist: Shady Shelby Proceduralist/Assist: Paola Saldana, RT(R), Vipul Barroso, RT(R) Estimated blood loss: <5 ml Plan of Activity Patient to Unit: Nursing Unit Patient Condition: Good See PACS Report for procedural detail/treatment Shady Shelby MD Sep 16, 2016 11:34
[2016-09-16] MEDS ORDERED: IOHEXOL 350 MG/ML 50 ML BTL (for RAD DIAG) G-TUBE ONE (11:45)
[2016-09-16] MEDS: levETIRAcetam INJ 500 MG in SODIUM CHLORIDE 0.9% INJ 100 ML IV SCH ×2 (11:47→20:19)
--- NOTE | 2016-09-16 11:59 | HHI.CCPN ---
Subjective Remarks/Hospital Course Hospital Course: 40-year-old male with reportedly no significant past medical history who was at work today and was taking out the garbage when he developed "the worse headache of his life". He was screaming in pain and [facility] was called. Upon [facility] arrival his GCS was 13 but rapidly deteriorated to GCS 3. He vomited. He was intubated on the scene without any drugs. CT brain demonstrated a large right cerebellar hemorrhage (4.9 x 5.7 cm) with effacement of the fourth ventricle. He has a very poor neurologic exam with absence of pupillary, corneal, gag, cough, oculocephalic reflexes. Not overbreathing vent but did not formally test apnea. Dr. Ovalles discussed with and she is requesting operative management. He is being taken for emergent CT angiogram and then to OR for evacuation by Dr. Ovalles. Subjective: 09/02: decompressive craniectomy overnight. per report, when he returned from the OR he apparently had a +gag. this morning remains encephalopathic. 09/03: vomiting on sedation vacation yesterday. cardene off. icp's controlled: 9 this AM. still poor neurologic exam. 09/04: on goal TF. no additional vomiting. following commands RUE, RLE. tracking. EVD at 15 cmH2O. ICP controlled. 09/05: still weakly following commands. ICP slightly elevated at 16-17 today. sedation vacation patient gets agitated, tachycardic, hypertensive. sputum growing pansensitive enterobacter. 09/06: still weakly following commands. ICP high overnight for ~30 minutes, but then improved. EVD challenged to 20 cmH2O today. still tachycardic and hypertensive. 09/07: still follows. ICP better controlled. EVD at [address] stable. 09/08: Delayed follow. Agitated when sedation lowered. Vomited early; will place NG to suction. Reglan already on board. We'd like to get to trial extubation for 's sake. Failed SBT today - will try again at higher PS. 09/09 no evidence overnight, no more vomiting, discussed with for tracheostomy placement 09/10: Tracheostomy this morning, CXR fine. DHT in good position, advance 10 cm. 09/11: Comfortable with trach; site clean. Talked with parents at bedside. 09/12: Breathes spontaneously with good excursions. 09/13: Tolerated SBT for several hours yesterday but became agitated and ineffective. Continue weaning efforts. 09/14: Still very agitated with sedation vacation. failed SBT for agitation, tachycardia, distress. 09/15: Agitation slightly better today with addition of Precedex. plan for PEG tube today. sputum growing now resistant enterobacter, and secretions are more tenacious today. 09/16: s/p PEG placement today. Following on R upper and lower ext. Continue to have large amount of secretions Objective Vital Signs Date Time Temp Pulse Resp B/P Pulse Ox O2 Delivery O2 Flow Rate FiO2 09/16/16 10:00 72 09/16/16 08:00 40 09/16/16 08:00 98.6 09/16/16 08:00 16 112/70 97 09/15/16 19:00 Mechanical Ventilator Intake and Output 09/15/16 09/15/16 09/15/16 07:59 15:59 23:59 Intake Total 345 ml 554 ml 394 ml Output Total 2500 ml 800 ml 850 ml Balance -2155 ml -246 ml -456 ml Result Diagram: 09/16/16 0300 09/16/16 0300 Other Results Microbiology Date/Time Procedure Status Source Growth 09/13/16 12:45 Gram Stain - Final Complete Sputum Endotracheal 09/13/16 12:45 Sputum Culture - Final Complete Enterobacter Aerogenes Objective Remarks GENERAL: male vented via trach SKIN: Warm and dry. HEAD: healing posterior wound EYES: No scleral icterus. ENT: No nasal bleeding or discharge. Mucous membranes pink and moist. NECK: Trachea midline, trach site clean, dry. CARDIOVASCULAR: . normal rate, regular rhythm. No JVD. RESPIRATORY:CPAP/PSV, fio2 50%. equal chest rise. Large amount mobile secretions , these are thick and zamarripa. GASTROINTESTINAL: Abdomen soft, non-tender, nondistended No guarding. : Kumar in place MSK: No obvious deformity. No edema. Well perfused, warm. NEUROLOGICAL: Pupils 2 mm, reactive. + cough, gag. FC delayed RUE, RLE. Remains flaccid on left. A/P Assessment and Plan Assessment: 40yM with large posterior fossa IPH now s/p decompressive posterior fossa craniectomy 09/01. encephalopathy slowly improving. still guarded prognosis given size and location of the bleed. goals are aggressive. palliative care following. Procalcitonin suggestive of low likelihood of sepsis , but sputum growing resistant enterobacter, and wbc elevated with worsening fevers. he is critically ill and in particular his worsening pulmonary status with persistent infection is life-threatening at this point. NEURO: Acute right cerebellar hemorrhage (ICH Score 4) Agitated Delirium CT brain 09/01/16 - 4.9 x 5.3 cm right cerebellar hemorrhage with effacement of the fourth ventricle. CTA 09/01/16 - No vascular abnormality. s/p Suboccipital craniectomy, cerebellar hemorrhage evacuation, ventriculostomy by Dr. Ovalles 09/01/16 Continue Keppra 500 mg IV every 12 Maintain normothermia with Tylenol/cooling blanket prn temp >100.4. Target RASS -1, patient comfort and vent synchrony, frequent neuro checks zyprexa 10mg po q8h, haldol 5mg iv q4h prn for agitation oxycodone 10mg po q4h scheduled for pain or discomfort in attempt to wean from fentanyl. attempt to wean off fentanyl, propofol, add Precedex to attempt to wean from propofol. RESP: Acute hypoxic and hypercarbic respiratory failure Aspiration Intubated at the scene by [facility] with no sedation Duoneb q6 hours; Albuterol q2 hours prn wheezing Enterobacter, Klebsiella in sputum, now Enterobacter is resistant to Rocephin. d /cd rocephin and started cefepime 2gm iv q8h 09/15/16 failing SBTs for tachycardia and agitation. May need to perform therapeutic bronch CV: Malignant Hypertension Sinus tachycardia Labetalol and hydralazine prn SBP <150. Lopressor 5mg iv q4h prn for HR > 90. Propranolol 20mg po q8h for tachycardia and agitation. Norvasc 5 daily GI: Vomiting- resolved. Zofran 4 mg IV q6 hours TF at goal. bowel regimen. FEN/RENAL: Renal insufficiency, unknown baseline creatinine Hypokalemia ICU electrolyte protocol Kumar in place due to critically ill patient in need of accurate I/O monitoring and at risk for urinary obstruction Monitor I/O and creatinine Monitor electrolytes and replace as indicated per ICU electively replacement protocol. ID: sputum growing Enterobacter, now resistant. Large amount of sputum production and e/o aspiration. s/p Unasyn for empiric aspiration coverage - s/p Rocephin 09/10 - 09/15, but now Enterobacter is resistant. - started cefepime 2gm iv q8h 09/15 - ID consult to assist with duration of abx therapy. HEME: Monitor CBC, post op CBC pending. Coags WNL. Patient was not on anticoagulant or antiplatelet therapy. ENDO: Acute stress hyperglycemia Monitor bedside glucose and initiate low-dose insulin sliding scale as indicated PROPH: SCDs and teds for DVT prophylaxis. Pharmacologic DVT prophylaxis is contraindicated due to acute cerebellar hemorrhage. Protonix 40 mg IV daily for stress ulcer prophylaxis. ACCESS: PICC line Overall impression: Remain in the ICU. much worse today given worsening pneumonia and pulmonary status, as well as agitation. critically ill and off pathway. any removal of care at this point would be fatal. This patient remains critically ill with one or more organ systems which are or may become a threat to life. I have spent in excess of 33 minutes discontinuously in the care and management of this patient. This time is exclusive of procedures, and includes, but is not limited to, evaluation of the patient, review of the medical record, discussions with family, consultants, nursing staff, or respiratory therapy, and documentation in the medical record. Michael Melendez MD Sep 16, 2016 11:59 Michael Melendez MD Sep 16, 2016 11:59
--- NOTE | 2016-09-16 12:24 | RADRPT ---
EXAM DATE/TIME: 09/16/2016 11:10 [facility] COMPARISON: No previous studies available for comparison. INDICATIONS : Patient with a history of acute cerebellar hemorrhage. Chronically vented with failed endoscopic tonia rostomy placement. MEDICAL HISTORY : Urinary incontinence SURGICAL HISTORY : Sinus surgery ENCOUNTER: Initial ACUITY: 2 weeks PAIN SCORE: Nonresponsive. FLUORO TIME: 1.6 minutes IMAGE SERIES: 0 SEDATION TIME: 30 minutes CONTRAST: 15 cc Omnipaque (iohexol) 350 MEDICATION(S): 1.) 0.5 mg midazolam (Versed) IV 2.) 25 mcg Fentanyl (Sublimaze) IV 3.) 1 mg glucagon (Gluca-Gen) IV DEVICE(S): 1.) 18 Fr gastrostomy tube PROCEDURE : 1. Limited abdominal ultrasound. 2. Fluoroscopically guided gastrostomy tube placement. 3. Conscious sedation with continuous EKG and oximetry monitoring. The risks, benefits and alternatives to the procedure were explained and verbal and written consent w as obtained. The site was prepped in sterile fashion. Full sterile technique was used, including ca p, mask, sterile gloves and gown and a large sterile sheet. Hand hygiene and 2% chlorhexidine and/or betadine/alcohol prep was utilized per protocol for cutaneous antisepsis. The skin and subcutaneous tissues were infiltrated with local anesthetic solution. Ultrasound was used to antonino the position of the liver. The stomach was insufflated with room air. Th ree percutaneous fasteners were placed to secure the anterior gastric wall. A small incision was made between the fasteners. The stomach was accessed with an 18 gauge needle. A n 0.035 wire was advanced into the small bowel. The tract was dilated. The gastrostomy tube was int roduced through a peel-away sheath. The position was confirmed with an injection of contrast. Conscious sedation was performed with the prescribed dosages and duration as above in the presence of an independent trained radiology nurse to assist in the monitoring of the patient. EKG and oximetry remained stable throughout the procedure. The patient tolerated the procedure well and there were n o complications. The patient was sent to post anesthesia recovery in stable condition. CONCLUSION: Uncomplicated gastrostomy tube placement as above. Shady Shelby MD on September 16, 2016 at 12:22 Board Certified Radiologist. This report was verified electronically.
--- NOTE | 2016-09-16 12:55 | HHI.NSPN ---
History Chief Complaint: ICH s/p suboccipital craniectomy for evacuation. Interval History 40-year-old gentleman postop day #1 status post right suboccipital craniectomy with cerebellar hemorrhage evacuation and ventriculostomy placement. His ICPs have been normal postoperatively. When sedation was held he vomited and was noted to have some eye opening and right-sided movements per the nursing staff. 09/03/16: Pt sedated on Diprivan. Decreased by RN and pt reported tracked to right side. at bedside states he had some spontaneous movement in RUE and RLE. Pts bp increases and requires sedation and anti hypertensive meds. 09/04/16: Pt sedated on Diprivan. When sedation decreased by RN patient opens both eyes and follow commands on the right side. He has left hemiplegia. Patient intubated and sedated. 09/07/16: Pt on sedation vacation currently this morning. He opens both eyes. Pupils 4mm bilaterally reactive bilaterally. Follows simple commands right side , has delayed response. Ventriculostomy drain in place at 20 cmH20, ICP14. Follow up CT head reviewed stable. 09/08/16: Pt sedated on Diprivan. Had episode of vomiting this morning. Follows intermittently right side. Left hemiparesis. Ventriculostomy drain in place at [id number]. ICP 7. 09/10/16: Pt sedation held this morning RN and pt coughing on vent and turned back on. Trach was done this morning. Not following commands, sedated. Ventric clamped ICP 3. 09/11/16: Pt on Diprivan and Fentanyl drips. Not opening eyes or following commands. Trach in place on Vent. Ventriculostomy drain in place ICPs remain normal, 3. 09/14/16: Patient on Diprivan and fentanyl drips. When held by RN this morning patient opens both eyes and would blink to command. He gripped his right hand to move his right leg to command. Left hemiplegia. 09/15/16: Pt on Diprivan drip. Off Fentanyl drip. Pt has thick secretions from trach per RN also periods of shivers. 09/16/16: Patient off to prevent phenol drips. He is on Precedex drip. He opens his eyes. He follows commands on the right side. Left dense hemiparesis/ plegia. Pupils 2 mm bilaterally. Trach in place on vent. System Review Comments Not able to obtain given clinical condition. Exam Results Vital Signs Date Time Temp Pulse Resp B/P Pulse Ox O2 Delivery O2 Flow Rate FiO2 09/16/16 12:04 98 40 09/16/16 10:00 72 09/16/16 08:00 98.6 09/16/16 08:00 16 112/70 09/15/16 19:00 Mechanical Ventilator Intake and Output 09/15/16 09/15/16 09/16/16 08:00 16:00 00:00 Intake Total 345 ml 554 ml 394 ml Output Total 2500 ml 800 ml 850 ml Balance -2155 ml -246 ml -456 ml Physical Examination Resp: Trach in place clear to auscultation bilaterally. Heart: NSR no murmurs Abd: Soft diminished bs Skin: Incision clean and dry. Healing well. Muscle: Moves right side to command. Neuro: Pt sedated on Precedex but more alert. He has eyes open and focuses on my face. Pupils are 2 mm bilaterally and reactive bilaterally. Patient follows commands on the right side when sedation held. No movement on left side. Lab, Micro, Other Results Last Impressions Chest X-Ray 09/15/16 0000 Signed Impressions: Service Date/Time: Thursday, September 15, 2016 10:02 - CONCLUSION: Unchanged bilateral infiltrates. Alexis Maddox Jr., MD Abdomen X-Ray 09/10/16 0000 Signed Impressions: Service Date/Time: September 06:34 - CONCLUSION: Feeding tube tip in the stomach Al Hernandez MD Head CT 09/07/16 0600 Signed Impressions: Service Date/Time: Wednesday, September 07, 2016 06:05 - CONCLUSION: Stable brain appearance. Al Hernandez MD Neck CTA 09/01/162019 Signed Impressions: Service Date/Time: Thursday, September 01, 2016 20:55 - CONCLUSION: Unremarkable exam. The carotid arteries are intact. Ag Saxena MD Head CTA 09/01/162019 Signed Impressions: Service Date/Time: Thursday, September 01, 2016 20:55 - CONCLUSION: The etiology of the patient's right cerebellar h hemorrhage is not identified and there appears to be some infiltrates and possible pleural effusions in the upper lungs that are visualized. Erika Bob MD Laboratory Tests Test 09/16/16 03:00 White Blood Count 20.6 TH/MM3 Red Blood Count 4.00 MIL/MM3 Hemoglobin 11.3 GM/DL Hematocrit 32.6 % Mean Corpuscular Volume 81.5 FL Mean Corpuscular Hemoglobin 28.1 PG Mean Corpuscular Hemoglobin 34.5 % Concent Red Cell Distribution Width 14.3 % Platelet Count 538 TH/MM3 Mean Platelet Volume 7.8 FL Sodium Level 139 MEQ/L Potassium Level 4.2 MEQ/L Chloride Level 101 MEQ/L Carbon Dioxide Level 27.4 MEQ/L Anion Gap 11 MEQ/L Blood Urea Nitrogen 26 MG/DL Creatinine 1.16 MG/DL Estimat Glomerular Filtration 85 ML/MIN Rate Random Glucose 114 MG/DL Calcium Level 9.6 MG/DL 09/15/16 09/15/16 09/16/16 15:00 23:00 07:00 Intake Total 554 ml 394 ml 534 ml Output Total 800 ml 850 ml 725 ml Balance -246 ml -456 ml -191 ml Intake IV Total 470 ml 394 ml 534 ml Lipid 84 ml Output Urine Total 800 ml 850 ml 725 ml Stool Total 0 ml 0 ml Medical Decision Making Impression and Plan A: 40 y/o M with Large right cerebellar hemisphere spontaneous hemorrhage likely hypertensive with no underlying vascular abnormality noted. He is status post suboccipital craniectomy with intracranial hemorrhage evacuation and ventriculostomy placement. s/p ventriculostomy removal. P: Continue with blood pressure control Continue with neuro checks Continue with critical care. Edgar Wallace Sep 16, 2016 12:55
[2016-09-16] MEDS: SODIUM CHLORIDE 0.9% FLUSH 10 ML FLUSH SCH ×2 (13:32→20:13)
[2016-09-16] MEDS: SODIUM CHLORIDE 0.9% FLUSH 10 ML FLUSH IV FLUSH SCH (13:33)
--- NOTE | 2016-09-16 13:34 | HHI.HCPN ---
Reason for visit a. To assist with evaluation and management of symptoms including: Shortness of breath and debility. b. To assist medical decision maker(s) with: better understanding of current medical conditions; weighing benefits/burdens of medical treatment options; making medical treatment decisions. . Subjective/Interval History Palliative care f/u for emotional support and for clarifications of goals of care. Mr. Isabel is a 40-year-old male with no significant past medical history who presented to the ED via EMS on 09/01/16 with large acute high density hemorrhage in the right cerebellar hemisphere with extension into the isaac, 5.3cm x 4.9cm in size. Patient status post decompressive craniectomy. Patient seen in ICU. Patient sedated on Precedex. Remains on mechanical ventilation via trach. Patient was unresponsive to verbal or tactile stimuli during my visit. Patient recently returned from IR for PEG tube placement, no complications reported. Patient afebrile, stable hemodynamically. Currently on 40% FiO2, oxygen saturation in the high 90s. Sputum culture 09/13/16 growing Enterobacter Aerogenes, ID -Dr. Georgie Torrez was consulted for evaluation of worsening pneumonia. Patient with copious trach secretions. Most recent chest x-ray 09/15/16 revealing unchanged bilateral infiltrates. Laboratory workup revealing persistent leukocytosis, 20.6 today from 17.6 yesterday. Hgb 11.3, platelet count 538. Sodium 139, potassium 4.2, BUN/creatinine 26/1.16. Elevated liver enzymes on 09/14/16, negative hepatitis panel. failing SBT secondary to agitation, tachycardia and distress. He was started on Precedex drip. As per ship's pilot, patient may need therapeutic bronchoscopy if secretions do not improve. Family friend at bedside this morning. Bedside RN reports the patient's parents and Jaci visited earlier today. Telephone call to patient's , left message on voicemail. Palliative care to provide update on medical condition and will continue to follow-up throughout this hospitalization for emotional and social support. Pending return phone call. 16:15. telephone conversation with pt's Jaci. Medical update provided. Shared sputum culture results and recommendations by ID. All questions were answered in great detail. . Family/friend interactions See interval note. . Advance Directives Living Will: Never completed Health Care Surrogate: Never completed Durable Power of [place] Nailer: Never completed Advance Directive Specifics Health Care Surrogate(s): No living will or healthcare surrogate designation completed. As per [place] law, patient's Jaci Isabel is healthcare proxy. . Documented care wishes: No living will completed. . Significant change in goals: Goals of care remain unchanged. . Objective Vital Signs Date Time Temp Pulse Resp B/P Pulse Ox O2 Delivery O2 Flow Rate FiO2 09/16/16 12:04 98 40 09/16/16 10:30 100 100 09/16/16 10:00 72 09/16/16 08:00 78 09/16/16 08:00 40 09/16/16 08:00 98.6 09/16/16 08:00 16 112/70 97 09/16/16 07:51 97 40 09/16/16 07:00 97 40 09/16/16 06:00 95 09/16/16 04:06 95 40 09/16/16 04:00 40 09/16/16 04:00 88 09/16/16 04:00 99.1 88 21 111/74 100 09/16/16 02:00 89 09/16/16 00:05 96 40 09/16/16 00:00 90 09/16/16 00:00 99.7 90 17 113/75 96 09/16/16 00:00 40 09/15/16 22:00 97 09/15/16 20:26 100 40 09/15/16 20:00 100 09/15/16 20:00 40 09/15/16 20:00 99.7 100 19 118/82 100 09/15/16 19:00 100 Mechanical Ventilator 40 09/15/16 18:00 102 09/15/16 17:45 19 09/15/16 16:00 88 09/15/16 16:00 98.6 89 19 122/86 96 09/15/16 16:00 40 09/15/16 14:00 92 Intake & Output 09/16/16 09/16/16 07:00 19:00 Intake Total 928 ml Output Total 1575 ml Balance -647 ml Intake IV Total 928 ml Output Urine Total 1575 ml Stool Total 0 ml Physical Exam CONSTITUTIONAL/GENERAL: This is an adequately nourished patient, in no apparent distress. On mechanical ventilation via tracheostomy. TUBES/LINES/DRAINS: PIV's, tracheostomy, NG tube, Kumar catheter, SCDs, bilateral soft wrist restraints, PEG tube, rectal tube. SKIN: No jaundice, rashes, or lesions. No wounds seen anteriorly. Skin temperature appropriate. Not diaphoretic. HEAD: Atraumatic. Normocephalic. EYES: No scleral icterus. No injection or drainage. ENT: Unable to evaluate hearing secondary to clinical condition. Nose without bleeding or purulent drainage. Protruding tongue. Moist oral mucosa. CARDIOVASCULAR: Regular rate and rhythm.Peripheral pulses symmetric. RESPIRATORY/CHEST: Symmetric, unlabored respirations. Coarse breath sounds bilaterally. On mechanical ventilation via tracheostomy. 40% FiO2. GASTROINTESTINAL: Abdomen soft, round. Bowel sounds present. PEG tube in place , dressing with scant amount of blood. GENITOURINARY: Without palpable bladder distension. Kumar catheter in place. MUSCULOSKELETAL: Extremities without clubbing, cyanosis. Trace edema to bilateral lower extremities. No mottling or clubbing. NEUROLOGICAL: Sedated and intubated on mechanical ventilation. Unresponsive to verbal or tactile stimuli during my assessment. Currently on Precedex drip. PSYCHIATRIC: Unable to evaluate secondary to clinical condition. Appears calm. . Diagnostic Tests Laboratory Laboratory Tests Test 09/14/16 09/14/16 09/15/16 09/16/16 05:55 12:45 04:15 03:00 White Blood Count 14.4 TH/MM3 17.6 TH/MM3 20.6 TH/MM3 (4.0-11.0) (4.0-11.0) (4.0-11.0) Red Blood Count 3.62 MIL/MM3 4.26 MIL/MM3 4.00 MIL/MM3 (4.50-5.90) (4.50-5.90) (4.50-5.90) Hemoglobin 10.9 GM/DL 12.0 GM/DL 11.3 GM/DL (13.0-17.0) (13.0-17.0) (13.0-17.0) Hematocrit 29.8 % 35.3 % 32.6 % (39.0-51.0) (39.0-51.0) (39.0-51.0) Mean Corpuscular Volume 82.5 FL 82.8 FL 81.5 FL (80.0-100.0) (80.0-100.0) (80.0-100.0) Mean Corpuscular Hemoglobin 30.2 PG 28.1 PG 28.1 PG (27.0-34.0) (27.0-34.0) (27.0-34.0) Mean Corpuscular Hemoglobin 36.6 % 33.9 % 34.5 % Concent (32.0-36.0) (32.0-36.0) (32.0-36.0) Red Cell Distribution Width 14.4 % 14.3 % 14.3 % (11.6-17.2) (11.6-17.2) (11.6-17.2) Platelet Count 414 TH/MM3 505 TH/MM3 538 TH/MM3 (150-450) (150-450) (150-450) Mean Platelet Volume 7.9 FL 7.9 FL 7.8 FL (7.0-11.0) (7.0-11.0) (7.0-11.0) Neutrophils (%) (Auto) 77.4 % (16.0-70.0) Lymphocytes (%) (Auto) 9.5 % (9.0-44.0) Monocytes (%) (Auto) 10.7 % (0.0-8.0) Eosinophils (%) (Auto) 1.8 % (0.0-4.0) Basophils (%) (Auto) 0.6 % (0.0-2.0) Neutrophils # (Auto) 11.2 TH/MM3 (1.8-7.7) Lymphocytes # (Auto) 1.4 TH/MM3 (1.0-4.8) Monocytes # (Auto) 1.5 TH/MM3 (0-0.9) Eosinophils # (Auto) 0.3 TH/MM3 (0-0.4) Basophils # (Auto) 0.1 TH/MM3 (0-0.2) CBC Comment AUTO DIFF Differential Total Cells 100 Counted Neutrophils % (Manual) 73 % (16-70) Band Neutrophils % 10 % (0-6) Lymphocytes % 9 % (9-44) Monocytes % 2 % (0-8) Eosinophils % 4 % (0-4) Neutrophils # (Manual) 12.2 TH/MM3 (1.8-7.7) Metamyelocytes 2 % (0-1) Differential Comment FINAL DIFF MANUAL Platelet Estimate NORMAL (NORMAL) Platelet Morphology Comment NORMAL (NORMAL) Sodium Level 132 MEQ/L 134 MEQ/L 139 MEQ/L (136-145) (136-145) (136-145) Potassium Level 4.1 MEQ/L 4.4 MEQ/L 4.2 MEQ/L (3.5-5.1) (3.5-5.1) (3.5-5.1) Chloride Level 98 MEQ/L 98 MEQ/L 101 MEQ/L (98-107) (98-107) (98-107) Carbon Dioxide Level 27.2 MEQ/L 28.2 MEQ/L 27.4 MEQ/L (21.0-32.0) (21.0-32.0) (21.0-32.0) Anion Gap 7 MEQ/L (5-15) 8 MEQ/L (5-15) 11 MEQ/L (5-15) Blood Urea Nitrogen 16 MG/DL (7-18) 17 MG/DL (7-18) 26 MG/DL (7-18) Creatinine 0.86 MG/DL 1.10 MG/DL 1.16 MG/DL (0.60-1.30) (0.60-1.30) (0.60-1.30) Estimat Glomerular Filtration 121 ML/MIN 91 ML/MIN (>89) 85 ML/MIN (>89) Rate (>89) Random Glucose 96 MG/DL 115 MG/DL 114 MG/DL (74-106) (74-106) (74-106) Calcium Level 7.5 MG/DL 9.2 MG/DL 9.6 MG/DL (8.5-10.1) (8.5-10.1) (8.5-10.1) Total Bilirubin 0.6 MG/DL (0.2-1.0) Direct Bilirubin 0.1 MG/DL (0.0-0.2) Indirect Bilirubin 0.5 MG/DL (0.0-0.8) Aspartate Amino Transf 118 U/L (15-37) (AST/SGOT) Alanine Aminotransferase 176 U/L (12-78) (ALT/SGPT) Alkaline Phosphatase 286 U/L (45-117) Total Protein 7.2 GM/DL (6.4-8.2) Albumin 1.5 GM/DL (3.4-5.0) Lipase 204 U/L (73-393) Hepatitis A IgM Antibody NEGATIVE (NEGATIVE) Hepatitis B Surface Antigen NEGATIVE (NEGATIVE) Hepatitis B Core IgM Antibody NEGATIVE (NEGATIVE) Hepatitis C Antibody NEGATIVE (NEGATIVE) Prealbumin 19 MG/DL (20-40) Procalcitonin 0.48 ng/mL (0.00-0.50) Result Diagram: 09/16/16 0300 09/16/16 0300 Imaging Last 48 hours Impressions Gastrostomy Tube Placement 09/16/16 0000 Signed Impressions: Service Date/Time: Friday, September 16, 2016 11:10 - CONCLUSION: Uncomplicated gastrostomy tube placement as above. Shady Shelby MD Chest X-Ray 09/15/16 0000 Signed Impressions: Service Date/Time: Thursday, September 15, 2016 10:02 - CONCLUSION: Unchanged bilateral infiltrates. Alexis Maddox Jr., MD Procedures * 09/16/16 -PEG tube placement * 09/11/16 -ventriculostomy discontinued. * 09/10/16 -tracheostomy placement. * 09/04/16 -right arterial line placement * 09/01/16 -Right suboccipital craniectomy with evacuation of cerebellar hemorrhage; right frontal bur hole ventriculostomy placement. . Assessment and Plan Disease Oriented Problem List: (1) Spontaneous intraparenchymal intracranial hemorrhage, acute (2) Acute respiratory failure (3) Malignant hypertension Symptom Scale: (1) Shortness of breath 0-10 Scale: Unable to quantify Comment: Secondary to acute respiratory failure. Status post trach. Patient remains on mechanical ventilation. (2) Pain 0-10 Scale: Unable to quantify Comment: Secondary to recent surgical intervention, hospitalization/bedrest. (3) Vomiting 0-10 Scale: 0 Comment: Currently on Reglan. Pertinent Non-Medical Issues Psychosocial: . Has 2 children. Originally from [place]. Spiritual: Rastafari holly. Legal: No advance directives completed. Ethical issues impacting care: No advance directives completed. . Important Contacts /HCS Jaci Isabel ([phone]. . Prognosis Mr. Isabel is a 40-year-old male with no significant past medical history who presented on 09/01/16 with large right cerebellar hemisphere hemorrhage with extension into the isaac. He underwent right suboccipital craniectomy with evacuation of cerebellar hemorrhage; right frontal bur hole ventriculostomy placement. Patient at high risk for further complications, continue decline and . Poor prognosis for meaningful functional/neurological recovery. . Code Status: Full Code Plan * CODE STATUS: Full code. * HEALTHCARE DECISION-MAKER: Patient incapacitated secondary to clinical condition, unresponsive -On mechanical ventilation via trach. No advance directives completed. As per [place] law, patient's Jaci Isabel is proxy decision maker. She has accepted this role. * GOALS OF CARE: As per Jaci, continue with aggressive care to include full code, tracheostomy and PEG placement. Reviewed with that patient remains in critical condition, high risk for further complications, continue decline and . Uncertain prognosis for a meaningful functional/neurological recovery at this time. Medical update provided to on 09/16/16. * SYMPTOMS: = Shortness of breath: Multifactorial. Secondary to acute respiratory failure/acute cerebellar hemorrhage. Status post tracheostomy and . Remains on mechanical ventilation. Not tolerating SBT secondary to hypertension, agitation. Patient on Precedex drip. = Pain: Secondary to recent surgical intervention, tracheostomy, bedrest status. Fentanyl drip discontinued. Patient on oxycodone every 4 hours ATC. . = Vomiting: appears controlled. Patient on Reglan and bowel regimen. = Agitation: Currently on Precedex drip and Zyprexa every 8 hours ATC. * Spiritual services following. * Case discussed with bedside RN. * Palliative care contact information has been provided to patient's . * Palliative care will continue to follow-up as needed for further clarifications of goals of care, assist with communication and to provide ongoing emotional and social support throughout this hospitalization. . Time Spent Total Floor Time (mins): 39 (Total time to include review of medical records, phys exam, telephone conversation with and case discussion with bedside RN. ) >50% Counseling/Coord of Care: Yes Attestation To help prompt me to consider important information that might be impacting today's encounter and assessment, information from prior notes written by myself or my colleagues may have been "brought forward" into today's note. My signature on this note, however, is an attestation that I personally performed the exam, history, and/or decision-making noted today, and, unless otherwise indicated, the interactions with patient, family, and staff as well as the review of records all occurred today. I also attest that the listed assessment and stated plan reflect my best clinical judgment today based on the combination of historical information, prior notes, and today's exam/ interactions. When time spent is documented, it refers only to time spent today by the signer, or if indicated, combined time spent today by collaborating physician/nurse practitioner. Della Gonzalez Sep 16, 2016 13:34
[2016-09-16] MEDS: RESP: TOBRAMYCIN SULFATE 300 MG/5 ML NEB NEB SCH (20:04)
[2016-09-17] VITALS (21 sets, daily range): BP systolic 121–138; BP diastolic 81–88; PULSE 60–89; RESP 16–18; TEMP 98.6–100; O2SAT 94–100
[2016-09-17] MEDS: CEFEPIME INJ 2,000 MG in SODIUM CHLORIDE 0.9% INJ 100 ML IV SCH ×3 (01:23→19:31)
[2016-09-17] MEDS: oxyCODONE HCL ORAL CONC 20 MG/ML SYRINGE PO SCH ×6 (03:53→23:00)
[2016-09-17] MEDS: OLANZapine ODT 10 MG TAB PO SCH ×3 (03:53→19:32)
[2016-09-17 03:55] LABS: HEMATOCRIT 33.9 % (39.0-51.0); MEAN CELL VOLUME 82.4 FL (80.0-100.0); MEAN CORPUSCULAR HEMOGLOBIN 27.4 PG (27.0-34.0); MEAN CORPUSCULAR HGB CONC 33.3 % (32.0-36.0); PLATELET COUNT 559 TH/MM3 (150-450); RED BLOOD COUNT 4.12 MIL/MM3 (4.50-5.90); RED CELL DISTRIBUTION WIDTH 14.4 % (11.6-17.2); WHITE BLOOD COUNT 14.1 TH/MM3 (4.0-11.0)
[2016-09-17 03:56] LABS: HEMO FLAGS AUTO DIFF
[2016-09-17] MEDS: CHLORHEXIDINE GLUCONATE 2 % 1 PACK (2 CLOTHS) TOP SCH (04:00)
[2016-09-17 04:33] LABS: ANION GAP 10 MEQ/L (5-15); AST (GOT) 115 U/L (15-37); BICARBONATE 27.3 MEQ/L (21.0-32.0); BLOOD UREA NITROGEN 27 MG/DL (7-18); CHLORIDE 102 MEQ/L (98-107); GLOMERULAR FILTRATION RATE 90 ML/MIN (>89); POTASSIUM 3.8 MEQ/L (3.5-5.1); SODIUM (NA) 139 MEQ/L (136-145)
[2016-09-17 04:35] LABS: ALKALINE PHOSPHATASE 340 U/L (45-117); ALT (GPT) 196 U/L (12-78); TOTAL BILIRUBIN ADULT 1.1 MG/DL (0.2-1.0)
[2016-09-17 04:41] LABS: BANDS 6 % (0-6); BASOPHILS 1 % (0-2); METAMYELOCYTES 1 % (0-1); NEUTROPHIL # MANUAL DIFF 10.3 TH/MM3 (1.8-7.7); POLYS (SEG NEUTROPHILS) 66 % (16-70); WBC DIFF SAMPLE 100
[2016-09-17 04:42] LABS: PLATELET ESTIMATE SMEAR HIGH (NORMAL); PLATELET MORPHOLOGY NORMAL (NORMAL); SCAN/DIFF FINAL DIFF MANUAL
[2016-09-17] MEDS: INSULIN ASPART SUPPLEMENTAL SCALE SQ SCH ×4 (06:00→23:53)
--- NOTE | 2016-09-17 06:03 | RADRPT ---
EXAM DATE/TIME: 09/17/2016 04:47 [facility] COMPARISON: CHEST SINGLE AP, September 15, 2016, 10:02. INDICATIONS : Shortness of breath, possible pulmonary disease. MEDICAL HISTORY : Stroke. Hypertension SURGICAL HISTORY : None. ENCOUNTER: Subsequent ACUITY: 2 weeks PAIN SCORE: Non-responsive. LOCATION: Bilateral chest FINDINGS: A single view of the chest demonstrates the tracheostomy tube and nasogastric are both in good positi on. There are bilateral lower lobe there is consolidation right worse on left. No visible pneumothora x. The cardiomediastinal contours are unremarkable. Osseous structures are intact. CONCLUSION: Bibasilar infiltrates right greater left. A tracheostomy tube in good position. PICC line in good pos ition. Keith Malave MD on September 17, 2016 at 6:00 Board Certified Radiologist. This report was verified electronically.
[2016-09-17] MEDS: METOCLOPRAMIDE HCL SYRUP 10 MG/10 ML UDC PO SCH ×4 (06:32→21:00)
[2016-09-17] MEDS: PROPRANOLOL HCL 20 MG TAB PO SCH ×3 (06:32→21:39)
[2016-09-17] MEDS: DEXMEDETOMIDINE INJ 400 MCG in SODIUM CHLORIDE 0.9% INJ 96 ML IV SCH ×4 (07:50→21:39)
[2016-09-17] MEDS: RESP: TOBRAMYCIN SULFATE 300 MG/5 ML NEB NEB SCH ×2 (08:12→20:18)
[2016-09-17] MEDS: CHLORHEXIDINE 0.12% (ORAL KIT) 15 ML CUP MT SCH ×2 (08:41→19:32)
--- NOTE | 2016-09-17 08:54 | HHI.NSPN ---
History Chief Complaint: ICH s/p suboccipital craniectomy for evacuation. Interval History 40-year-old gentleman postop day #1 status post right suboccipital craniectomy with cerebellar hemorrhage evacuation and ventriculostomy placement. His ICPs have been normal postoperatively. When sedation was held he vomited and was noted to have some eye opening and right-sided movements per the nursing staff. 09/03/16: Pt sedated on Diprivan. Decreased by RN and pt reported tracked to right side. at bedside states he had some spontaneous movement in RUE and RLE. Pts bp increases and requires sedation and anti hypertensive meds. 09/04/16: Pt sedated on Diprivan. When sedation decreased by RN patient opens both eyes and follow commands on the right side. He has left hemiplegia. Patient intubated and sedated. 09/07/16: Pt on sedation vacation currently this morning. He opens both eyes. Pupils 4mm bilaterally reactive bilaterally. Follows simple commands right side , has delayed response. Ventriculostomy drain in place at 20 cmH20, ICP14. Follow up CT head reviewed stable. 09/08/16: Pt sedated on Diprivan. Had episode of vomiting this morning. Follows intermittently right side. Left hemiparesis. Ventriculostomy drain in place at [id number]. ICP 7. 09/10/16: Pt sedation held this morning RN and pt coughing on vent and turned back on. Trach was done this morning. Not following commands, sedated. Ventric clamped ICP 3. 09/11/16: Pt on Diprivan and Fentanyl drips. Not opening eyes or following commands. Trach in place on Vent. Ventriculostomy drain in place ICPs remain normal, 3. 09/14/16: Patient on Diprivan and fentanyl drips. When held by RN this morning patient opens both eyes and would blink to command. He gripped his right hand to move his right leg to command. Left hemiplegia. 09/15/16: Pt on Diprivan drip. Off Fentanyl drip. Pt has thick secretions from trach per RN also periods of shivers. 09/16/16: Patient off to Diprivan and Fentanyl drips. He is on Precedex drip. He opens his eyes. He follows commands on the right side. Left dense hemiparesis/plegia. Pupils 2 mm bilaterally. Trach in place on vent. 09/17/16: Pt opens eyes, focuses on face. Follows simple commands right side. Left hemiplegia. Pupils 2mm bilaterally. System Review Comments Not able to obtain given clinical exam. Exam Results Vital Signs Date Time Temp Pulse Resp B/P Pulse Ox O2 Delivery O2 Flow Rate FiO2 09/17/16 08:13 99 40 09/17/16 06:00 65 09/17/16 05:48 131/85 09/17/16 04:00 98.6 16 09/15/16 19:00 Mechanical Ventilator Intake and Output 09/16/16 09/16/16 09/17/16 08:00 16:00 00:00 Intake Total 534 ml 516 ml 475 ml Output Total 725 ml 1420 ml 725 ml Balance -191 ml -904 ml -250 ml Physical Examination Resp: Trach in place clear to auscultation bilaterally. Heart: NSR no murmurs Abd: Soft diminished bs Skin: Incision clean and dry. Healing well. Muscle: Moves right side to command. Neuro: Pt sedated on Precedex but more alert. He has eyes open and focuses on my face. Pupils are 2 mm bilaterally and reactive bilaterally. Patient follows commands on the right side. No movement on left side. Lab, Micro, Other Results Last Impressions Chest X-Ray 09/17/16 0600 Signed Impressions: Service Date/Time: September 04:47 - CONCLUSION: Bibasilar infiltrates right greater left. A tracheostomy tube in good position. PICC line in good position. Keith Malave MD Gastrostomy Tube Placement 09/16/16 0000 Signed Impressions: Service Date/Time: Friday, September 16, 2016 11:10 - CONCLUSION: Uncomplicated gastrostomy tube placement as above. Shady Shelby MD Abdomen X-Ray 09/10/16 0000 Signed Impressions: Service Date/Time: September 06:34 - CONCLUSION: Feeding tube tip in the stomach Al Hernandez MD Head CT 09/07/16 0600 Signed Impressions: Service Date/Time: Wednesday, September 07, 2016 06:05 - CONCLUSION: Stable brain appearance. Al Hernandez MD Neck CTA 09/01/162019 Signed Impressions: Service Date/Time: Thursday, September 01, 2016 20:55 - CONCLUSION: Unremarkable exam. The carotid arteries are intact. Ag Saxena MD Head CTA 09/01/162019 Signed Impressions: Service Date/Time: Thursday, September 01, 2016 20:55 - CONCLUSION: The etiology of the patient's right cerebellar h hemorrhage is not identified and there appears to be some infiltrates and possible pleural effusions in the upper lungs that are visualized. Erika Bob MD Laboratory Tests Test 09/17/16 03:45 White Blood Count 14.1 TH/MM3 Red Blood Count 4.12 MIL/MM3 Hemoglobin 11.3 GM/DL Hematocrit 33.9 % Mean Corpuscular Volume 82.4 FL Mean Corpuscular Hemoglobin 27.4 PG Mean Corpuscular Hemoglobin 33.3 % Concent Red Cell Distribution Width 14.4 % Platelet Count 559 TH/MM3 Mean Platelet Volume 7.3 FL Neutrophils (%) (Auto) % Lymphocytes (%) (Auto) % Monocytes (%) (Auto) % Eosinophils (%) (Auto) % Basophils (%) (Auto) % Neutrophils # (Auto) TH/MM3 Lymphocytes # (Auto) TH/MM3 Monocytes # (Auto) TH/MM3 Eosinophils # (Auto) TH/MM3 Basophils # (Auto) TH/MM3 CBC Comment AUTO DIFF Differential Total Cells 100 Counted Neutrophils % (Manual) 66 % Band Neutrophils % 6 % Lymphocytes % 10 % Monocytes % 16 % Basophils % 1 % Neutrophils # (Manual) 10.3 TH/MM3 Metamyelocytes 1 % Differential Comment FINAL DIFF MANUAL Platelet Estimate HIGH Platelet Morphology Comment NORMAL Red Cell Morphology Comment NORMAL Sodium Level 139 MEQ/L Potassium Level 3.8 MEQ/L Chloride Level 102 MEQ/L Carbon Dioxide Level 27.3 MEQ/L Anion Gap 10 MEQ/L Blood Urea Nitrogen 27 MG/DL Creatinine 1.11 MG/DL Estimat Glomerular Filtration 90 ML/MIN Rate Random Glucose 105 MG/DL Calcium Level 9.4 MG/DL Total Bilirubin 1.1 MG/DL Aspartate Amino Transf 115 U/L (AST/SGOT) Alanine Aminotransferase 196 U/L (ALT/SGPT) Alkaline Phosphatase 340 U/L Total Protein 8.7 GM/DL Albumin 2.0 GM/DL 09/16/16 09/16/16 09/17/16 15:00 23:00 07:00 Intake Total 991 ml 343 ml Output Total 2145 ml 675 ml Balance -1154 ml -332 ml Intake IV Total 881 ml 343 ml Tube Irrigant 110 ml Output Urine Total 2125 ml 675 ml Stool Total 20 ml Medical Decision Making Impression and Plan A: 40 y/o M with Large right cerebellar hemisphere spontaneous hemorrhage likely hypertensive with no underlying vascular abnormality noted. He is status post suboccipital craniectomy with intracranial hemorrhage evacuation and ventriculostomy placement. s/p ventriculostomy removal. P: Continue with blood pressure control Continue with neuro checks Continue with critical care. Edgar Wallace Sep 17, 2016 08:53
[2016-09-17] MEDS: DOCUSATE SODIUM 50 MG/SENNA 8.6 MG TAB PO SCH ×2 (09:00→21:00)
[2016-09-17] MEDS: BISACODYL 10 MG SUPP RECTAL SCH (09:00)
[2016-09-17] MEDS: SODIUM CHLORIDE 0.9% FLUSH 10 ML FLUSH SCH ×2 (10:31→21:00)
[2016-09-17] MEDS: PANTOPRAZOLE SODIUM 40 MG VIAL IV SCH (10:31)
[2016-09-17] MEDS: levETIRAcetam INJ 500 MG in SODIUM CHLORIDE 0.9% INJ 100 ML IV SCH ×2 (10:31→21:00)
[2016-09-17] MEDS: SODIUM CHLORIDE 0.9% FLUSH 10 ML FLUSH IV FLUSH SCH (10:33)
[2016-09-17] MEDS: amLODIPine BESYLATE 5 MG TAB PO SCH (10:33)
--- NOTE | 2016-09-17 11:59 | HHI.CCPN ---
Subjective Remarks/Hospital Course Hospital Course: 40-year-old male with reportedly no significant past medical history who was at work today and was taking out the garbage when he developed "the worse headache of his life". He was screaming in pain and [facility] was called. Upon [facility] arrival his GCS was 13 but rapidly deteriorated to GCS 3. He vomited. He was intubated on the scene without any drugs. CT brain demonstrated a large right cerebellar hemorrhage (4.9 x 5.7 cm) with effacement of the fourth ventricle. He has a very poor neurologic exam with absence of pupillary, corneal, gag, cough, oculocephalic reflexes. Not overbreathing vent but did not formally test apnea. Dr. Ovalles discussed with and she is requesting operative management. He is being taken for emergent CT angiogram and then to OR for evacuation by Dr. Ovalles. Subjective: 09/02: decompressive craniectomy overnight. per report, when he returned from the OR he apparently had a +gag. this morning remains encephalopathic. 09/03: vomiting on sedation vacation yesterday. cardene off. icp's controlled: 9 this AM. still poor neurologic exam. 09/04: on goal TF. no additional vomiting. following commands RUE, RLE. tracking. EVD at 15 cmH2O. ICP controlled. 09/05: still weakly following commands. ICP slightly elevated at 16-17 today. sedation vacation patient gets agitated, tachycardic, hypertensive. sputum growing pansensitive enterobacter. 09/06: still weakly following commands. ICP high overnight for ~30 minutes, but then improved. EVD challenged to 20 cmH2O today. still tachycardic and hypertensive. 09/07: still follows. ICP better controlled. EVD at [address] stable. 09/08: Delayed follow. Agitated when sedation lowered. Vomited early; will place NG to suction. Reglan already on board. We'd like to get to trial extubation for 's sake. Failed SBT today - will try again at higher PS. 09/09 no evidence overnight, no more vomiting, discussed with for tracheostomy placement 09/10: Tracheostomy this morning, CXR fine. DHT in good position, advance 10 cm. 09/11: Comfortable with trach; site clean. Talked with parents at bedside. 09/12: Breathes spontaneously with good excursions. 09/13: Tolerated SBT for several hours yesterday but became agitated and ineffective. Continue weaning efforts. 09/14: Still very agitated with sedation vacation. failed SBT for agitation, tachycardia, distress. 09/15: Agitation slightly better today with addition of Precedex. plan for PEG tube today. sputum growing now resistant enterobacter, and secretions are more tenacious today. 09/16: s/p PEG placement today. Following on R upper and lower ext. Continue to have large amount of secretions 09/17: Clinically better less agitated on Precedex follows commands on right side. Still has large amount of secretions, white count improving after starting cefepime. We'll attempt T piece yesterday. Liver enzymes elevated. Check ultrasound of the liver and gallbladder Objective Vital Signs Date Time Temp Pulse Resp B/P Pulse Ox O2 Delivery O2 Flow Rate FiO2 09/17/16 11:06 100 40 09/17/16 10:00 60 09/17/16 08:00 98.8 16 135/88 09/17/16 07:00 Mechanical Ventilator Intake and Output 09/16/16 09/16/16 09/17/16 08:00 16:00 00:00 Intake Total 534 ml 516 ml 475 ml Output Total 725 ml 1420 ml 725 ml Balance -191 ml -904 ml -250 ml Result Diagram: 09/17/16 0345 09/17/16 0345 Objective Remarks GENERAL: male vented via trach SKIN: Warm and dry. HEAD: healing posterior wound EYES: No scleral icterus. ENT: No nasal bleeding or discharge. Mucous membranes pink and moist. NECK: Trachea midline, trach site clean, dry. CARDIOVASCULAR: . normal rate, regular rhythm. No JVD. RESPIRATORY:CPAP/PSV. equal chest rise. Large amount mobile secretions, these are thick and zamarripa. GASTROINTESTINAL: Abdomen soft, non-tender, nondistended No guarding. : Kumar in place MSK: No obvious deformity. No edema. Well perfused, warm. NEUROLOGICAL: Pupils 2 mm, reactive. + cough, gag. Follows commands RUE, RLE. Remains flaccid on left. A/P Assessment and Plan Assessment: 40yM with large posterior fossa IPH now s/p decompressive posterior fossa craniectomy 09/01. encephalopathy slowly improving. still guarded prognosis given size and location of the bleed. goals are aggressive. palliative care following. Procalcitonin suggestive of low likelihood of sepsis , but sputum growing resistant enterobacter, and wbc elevated with worsening fevers. he is critically ill and in particular his worsening pulmonary status with persistent infection is life-threatening at this point. NEURO: Acute right cerebellar hemorrhage (ICH Score 4) Agitated Delirium CT brain 09/01/16 - 4.9 x 5.3 cm right cerebellar hemorrhage with effacement of the fourth ventricle. CTA 09/01/16 - No vascular abnormality. s/p Suboccipital craniectomy, cerebellar hemorrhage evacuation, ventriculostomy by Dr. Ovalles 09/01/16 Continue Keppra 500 mg IV every 12 Maintain normothermia with Tylenol/cooling blanket prn temp >100.4. Target RASS -1, patient comfort and vent synchrony, frequent neuro checks zyprexa 10mg po q8h, haldol 5mg iv q4h prn for agitation oxycodone 10mg po q4h scheduled for pain or discomfort in attempt to wean from fentanyl. Currently on Precedex early RESP: Acute hypoxic and hypercarbic respiratory failure Aspiration Intubated at the scene by [facility] with no sedation Duoneb q6 hours; Albuterol q2 hours prn wheezing Enterobacter, Klebsiella in sputum, now Enterobacter is resistant to Rocephin. d /cd rocephin and started cefepime 2gm iv q8h 09/15/16 failing SBTs for tachycardia and agitation. Attempt TP up to 2 hours today CV: Malignant Hypertension Sinus tachycardia Labetalol and hydralazine prn SBP <150. Lopressor 5mg iv q4h prn for HR > 90. Propranolol 20mg po q8h for tachycardia and agitation. Norvasc 5 daily GI: Vomiting- resolved. Zofran 4 mg IV q6 hours TF at goal. bowel regimen. FEN/RENAL: Renal insufficiency, unknown baseline creatinine Hypokalemia ICU electrolyte protocol Kumar in place due to critically ill patient in need of accurate I/O monitoring and at risk for urinary obstruction Monitor I/O and creatinine Monitor electrolytes and replace as indicated per ICU electively replacement protocol. ID: sputum growing Enterobacter, now resistant. Large amount of sputum production and e/o aspiration. s/p Unasyn for empiric aspiration coverage - s/p Rocephin 09/10 - 09/15, but now Enterobacter is resistant. started cefepime 2gm iv q8h 09/15 - ID consulted to assist with duration of abx therapy. HEME: Monitor CBC, post op CBC pending. Coags WNL. Patient was not on anticoagulant or antiplatelet therapy. ENDO: Acute stress hyperglycemia Monitor bedside glucose and initiate low-dose insulin sliding scale as indicated PROPH: SCDs and teds for DVT prophylaxis. Pharmacologic DVT prophylaxis is contraindicated due to acute cerebellar hemorrhage. Protonix 40 mg IV daily for stress ulcer prophylaxis. ACCESS: PICC line Overall impression: Remain in the ICU. critically ill and off pathway. This patient remains critically ill with one or more organ systems which are or may become a threat to life. I have spent in excess of 31 minutes discontinuously in the care and management of this patient. This time is exclusive of procedures, and includes, but is not limited to, evaluation of the patient, review of the medical record, discussions with family, consultants, nursing staff, or respiratory therapy, and documentation in the medical record. Michael Melendez MD Sep 17, 2016 11:59
--- NOTE | 2016-09-17 15:17 | HHI.GIFU ---
Subjective Remarks Pt resting in bed, trach to vent, friend is visiting. He is awake. No indication of pain. TF just started. (Megha Watson) Objective Vitals I&O Vital Signs Date Time Temp Pulse Resp B/P Pulse Ox O2 Delivery O2 Flow Rate FiO2 09/17/16 12:00 99.0 80 16 131/84 98 09/17/16 12:00 80 09/17/16 12:00 40 09/17/16 11:50 40 09/17/16 11:28 40 09/17/16 11:28 40 09/17/16 11:06 100 40 09/17/16 10:00 60 09/17/16 08:13 99 40 09/17/16 08:00 68 09/17/16 08:00 40 09/17/16 08:00 98.8 68 16 135/88 98 09/17/16 07:00 98 Mechanical Ventilator 40 09/17/16 06:00 65 09/17/16 05:48 65 131/85 09/17/16 04:00 40 09/17/16 04:00 98.6 78 16 128/81 97 09/17/16 04:00 78 09/17/16 03:52 96 40 09/17/16 02:00 88 09/17/16 01:48 88 129/83 09/17/16 00:39 94 40 09/17/16 00:00 86 09/17/16 00:00 99.1 89 18 121/81 97 09/17/16 00:00 40 09/16/16 22:00 91 09/16/16 22:00 91 17 132/84 09/16/16 20:00 85 09/16/16 20:00 99.1 85 18 129/88 97 09/16/16 20:00 40 09/16/16 19:37 97 40 09/16/16 19:00 99 40 09/16/16 18:00 83 09/16/16 17:48 82 16 132/90 09/16/16 16:00 98.6 80 18 134/98 99 09/16/16 16:00 40 09/16/16 16:00 78 09/16/16 15:57 100 40 I/O 09/16/16 09/16/16 09/16/16 09/17/16 09/17/1609/17/17 07:00 15:00 23:00 07:00 15:00 23:00 Intake Total 534 ml 991 ml 343 ml Output Total 725 ml 2145 ml 675 ml Balance -191 ml -1154 ml -332 ml Intake IV Total 534 ml 881 ml 343 ml Tube Irrigant 110 ml Output Urine Total 725 ml 2125 ml 675 ml Stool Total 20 ml Laboratory Laboratory Tests Test 09/17/16 03:45 White Blood Count 14.1 Red Blood Count 4.12 Hemoglobin 11.3 Hematocrit 33.9 Mean Corpuscular Volume 82.4 Mean Corpuscular Hemoglobin 27.4 Mean Corpuscular Hemoglobin 33.3 Concent Red Cell Distribution Width 14.4 Platelet Count 559 Mean Platelet Volume 7.3 Neutrophils (%) (Auto) Lymphocytes (%) (Auto) Monocytes (%) (Auto) Eosinophils (%) (Auto) Basophils (%) (Auto) Neutrophils # (Auto) Lymphocytes # (Auto) Monocytes # (Auto) Eosinophils # (Auto) Basophils # (Auto) CBC Comment AUTO DIFF Differential Total Cells 100 Counted Neutrophils % (Manual) 66 Band Neutrophils % 6 Lymphocytes % 10 Monocytes % 16 Basophils % 1 Neutrophils # (Manual) 10.3 Metamyelocytes 1 Differential Comment FINAL DIFF MANUAL Platelet Estimate HIGH Platelet Morphology Comment NORMAL Red Cell Morphology Comment NORMAL Sodium Level 139 Potassium Level 3.8 Chloride Level 102 Carbon Dioxide Level 27.3 Anion Gap 10 Blood Urea Nitrogen 27 Creatinine 1.11 Estimat Glomerular Filtration 90 Rate Random Glucose 105 Calcium Level 9.4 Total Bilirubin 1.1 Aspartate Amino Transf 115 (AST/SGOT) Alanine Aminotransferase 196 (ALT/SGPT) Alkaline Phosphatase 340 Total Protein 8.7 Albumin 2.0 Date/Time Procedure Status Source Growth 09/13/16 12:45 Gram Stain - Final Complete Sputum Endotracheal 09/13/16 12:45 Sputum Culture - Final Complete Enterobacter Aerogenes 09/13/16 12:21 Aerobic Blood Culture - Preliminary Resulted Blood Peripheral NO GROWTH IN 4 DAYS 09/13/16 12:21 Anaerobic Blood Culture - Preliminary Resulted Blood Peripheral NO GROWTH IN 4 DAYS Physical Exam HEENT: normocephalic; atraumatic; no jaundice. CHEST: CTA CARDIAC: RRR ABDOMEN: Soft, nondistended, nontender; no hepatosplenomegaly; bowel sounds are present in all four quadrants. PEG site clean. EXTREMITIES: No clubbing, cyanosis, or edema. SKIN: Normal; no rash; no jaundice. 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 s/p PEG placement, TF running - respiratory failure - per CCM - malignant HTN - per CCM PLAN - GI will sign off for now This pt seen by myself and Dr Louie and this ntoe is written on his behalf ( Megha Watson) Physician Comments As planned above. Please notify us if needed. (Luli Louie MD) Megha Watson Sep 17, 2016 15:17 Luli Louie MD Sep 17, 2016 23:49
--- NOTE | 2016-09-17 15:56 | HHI.IDPN ---
Subjective Subjective Remarks ID [id number] for Dr Torrez chart reviewed Mr. Isabel is a 40-year-old male with reportedly no significant past medical history admitted on 09/01 with a large right cerebellar hemorrhage 4.9 x 5.7 cm with effacement of the fourth ventricle. Patient underwent a right suboccipital craniectomy with evacuation of cerebellar hemorrhage, right frontal juliana hole with ventriculostomy. Patient continued to be an aspiration risk as well as failed SBTs. Sp PEG tube placement yday Did not tolerate CPAP today During the course of hospitalization due to his vomiting he developed pneumonia. His sputum cultures grew Enterobacter aerogenes. He was treated with cefepime IV his chest x-ray is improved but not completely and continues to have a right-sided basal infiltrate. Cont to have copious secretions needing frequent suctioning No fevers No new problems per RN WBC went from 20K down to 14 K Antibiotics cefepime+ tobra nebs Allergies: Coded Allergies: No Known Allergies (Unverified , 09/09/16) Objective . Vital Signs Date Time Temp Pulse Resp B/P Pulse Ox O2 Delivery O2 Flow Rate FiO2 09/17/16 12:00 99.0 80 16 131/84 98 09/17/16 12:00 80 09/17/16 12:00 40 09/17/16 11:50 40 09/17/16 11:28 40 09/17/16 11:28 40 09/17/16 11:06 100 40 09/17/16 10:00 60 09/17/16 08:13 99 40 09/17/16 08:00 68 09/17/16 08:00 40 09/17/16 08:00 98.8 68 16 135/88 98 09/17/16 07:00 98 Mechanical Ventilator 40 09/17/16 06:00 65 09/17/16 05:48 65 131/85 09/17/16 04:00 40 09/17/16 04:00 98.6 78 16 128/81 97 09/17/16 04:00 78 09/17/16 03:52 96 40 09/17/16 02:00 88 09/17/16 01:48 88 129/83 09/17/16 00:39 94 40 09/17/16 00:00 86 09/17/16 00:00 99.1 89 18 121/81 97 09/17/16 00:00 40 09/16/16 22:00 91 09/16/16 22:00 91 17 132/84 09/16/16 20:00 85 09/16/16 20:00 99.1 85 18 129/88 97 09/16/16 20:00 40 09/16/16 19:37 97 40 09/16/16 19:00 99 40 09/16/16 18:00 83 09/16/16 17:48 82 16 132/90 09/16/16 16:00 98.6 80 18 134/98 99 09/16/16 16:00 40 09/16/16 16:00 78 09/16/16 15:57 100 40 09/16/16 09/16/16 09/17/16 15:00 23:00 07:00 Intake Total 991 ml 343 ml Output Total 2145 ml 675 ml Balance -1154 ml -332 ml Intake IV Total 881 ml 343 ml Tube Irrigant 110 ml Output Urine Total 2125 ml 675 ml Stool Total 20 ml . Laboratory Tests Test 09/16/16 09/17/16 03:00 03:45 White Blood Count 20.6 TH/MM3 14.1 TH/MM3 Red Blood Count 4.00 MIL/MM3 4.12 MIL/MM3 Hemoglobin 11.3 GM/DL 11.3 GM/DL Hematocrit 32.6 % 33.9 % Mean Corpuscular Volume 81.5 FL 82.4 FL Mean Corpuscular Hemoglobin 28.1 PG 27.4 PG Mean Corpuscular Hemoglobin 34.5 % 33.3 % Concent Red Cell Distribution Width 14.3 % 14.4 % Platelet Count 538 TH/MM3 559 TH/MM3 Mean Platelet Volume 7.8 FL 7.3 FL Neutrophils (%) (Auto) % Lymphocytes (%) (Auto) % Monocytes (%) (Auto) % Eosinophils (%) (Auto) % Basophils (%) (Auto) % Neutrophils # (Auto) TH/MM3 Lymphocytes # (Auto) TH/MM3 Monocytes # (Auto) TH/MM3 Eosinophils # (Auto) TH/MM3 Basophils # (Auto) TH/MM3 CBC Comment AUTO DIFF Differential Total Cells 100 Counted Neutrophils % (Manual) 66 % Band Neutrophils % 6 % Lymphocytes % 10 % Monocytes % 16 % Basophils % 1 % Neutrophils # (Manual) 10.3 TH/MM3 Metamyelocytes 1 % Differential Comment FINAL DIFF MANUAL Platelet Estimate HIGH Platelet Morphology Comment NORMAL Red Cell Morphology Comment NORMAL Laboratory Tests Test 09/16/16 09/17/16 03:00 03:45 Sodium Level 139 MEQ/L 139 MEQ/L Potassium Level 4.2 MEQ/L 3.8 MEQ/L Chloride Level 101 MEQ/L 102 MEQ/L Carbon Dioxide Level 27.4 MEQ/L 27.3 MEQ/L Anion Gap 11 MEQ/L 10 MEQ/L Blood Urea Nitrogen 26 MG/DL 27 MG/DL Creatinine 1.16 MG/DL 1.11 MG/DL Estimat Glomerular Filtration 85 ML/MIN 90 ML/MIN Rate Random Glucose 114 MG/DL 105 MG/DL Calcium Level 9.6 MG/DL 9.4 MG/DL Total Bilirubin 1.1 MG/DL Aspartate Amino Transf 115 U/L (AST/SGOT) Alanine Aminotransferase 196 U/L (ALT/SGPT) Alkaline Phosphatase 340 U/L Total Protein 8.7 GM/DL Albumin 2.0 GM/DL Imaging Last Impressions Chest X-Ray 09/17/16 0600 Signed Impressions: Service Date/Time: September 04:47 - CONCLUSION: Bibasilar infiltrates right greater left. A tracheostomy tube in good position. PICC line in good position. Keith Malave MD Gastrostomy Tube Placement 09/16/16 0000 Signed Impressions: Service Date/Time: Friday, September 16, 2016 11:10 - CONCLUSION: Uncomplicated gastrostomy tube placement as above. Shady Shelby MD Abdomen X-Ray 09/10/16 0000 Signed Impressions: Service Date/Time: September 06:34 - CONCLUSION: Feeding tube tip in the stomach Al Hernandez MD Head CT [id number]/07/[id number] Signed Impressions: Service Date/Time: Wednesday, September 07, 2016 06:05 - CONCLUSION: Stable brain appearance. Al Hernandez MD Neck CTA 09/01/162019 Signed Impressions: Service Date/Time: Thursday, September 01, 2016 20:55 - CONCLUSION: Unremarkable exam. The carotid arteries are intact. Ag Saxena MD Head CTA 09/01/162019 Signed Impressions: Service Date/Time: [place], September 01, 2016 20:55 - CONCLUSION: The etiology of the patient's right cerebellar h hemorrhage is not identified and there appears to be some infiltrates and possible pleural effusions in the upper lungs that are visualized. Erika Bob MD Physical Exam GENERAL: NAD sedated intubated on vent somewhat agitated, constatnly waving his RUE SKIN: Warm and dry. HEAD: healing posterior wound with no e.o infection. EYES: No scleral icterus. ENT: No nasal bleeding or discharge. Mucous membranes pink and moist. NECK: Trachea midline, trach site clean, dry. CARDIOVASCULAR: normal rate, regular rhythm. No JVD. RESPIRATORY: CTA B/L, No adv sounds. Decreased AE in bases. GASTROINTESTINAL: Abdomen soft, non-tender, nondistended No guarding. : Kumar in place MSK: No obvious deformity. No edema. Well perfused, warm. NEUROLOGICAL: Pupils 2 mm, reactive. RUE, RLE. Remains flaccid on left. Per RN FC with R side; not communicating Psych could not be assessed Kumar in place. PICC line site with no e.o infection. Assessment & Plan Remarks Assessment and Plan Enterobacter aerogenes Pneumonia (resistant to Rocephin, cefepime S, Tobra S) Respiratory failure s.p Trach Large right cerebellar hemorrhage 4.9 x 5.7 cm with effacement of the fourth ventricle. H/o Ventric during this admission. leukocytosis - improved Recs: Continue Cefepime IV for now cont Tobramycin nebulizations Pneumonia appears improved compared to prior Xrays. Follow cultures Follow clinically. dw Dr Al Martinez,Paola Mcgregor MD Sep 17, 2016 15:56
[2016-09-18] VITALS (19 sets, daily range): BP systolic 112–152; BP diastolic 69–96; PULSE 74–98; RESP 16–19; TEMP 98.8–100.2; O2SAT 95–100
[2016-09-18] MEDS: CEFEPIME INJ 2,000 MG in SODIUM CHLORIDE 0.9% INJ 100 ML IV SCH ×3 (02:00→17:20)
[2016-09-18] MEDS: oxyCODONE HCL ORAL CONC 20 MG/ML SYRINGE PO SCH ×6 (03:00→22:20)
[2016-09-18] MEDS: OLANZapine ODT 10 MG TAB PO SCH ×3 (03:07→20:11)
[2016-09-18] MEDS: CHLORHEXIDINE GLUCONATE 2 % 1 PACK (2 CLOTHS) TOP SCH (03:12)
[2016-09-18 04:06] LABS: HEMATOCRIT 33.6 % (39.0-51.0); MEAN CELL VOLUME 81.7 FL (80.0-100.0); MEAN CORPUSCULAR HEMOGLOBIN 27.6 PG (27.0-34.0); MEAN CORPUSCULAR HGB CONC 33.7 % (32.0-36.0); PLATELET COUNT 623 TH/MM3 (150-450); RED BLOOD COUNT 4.11 MIL/MM3 (4.50-5.90); RED CELL DISTRIBUTION WIDTH 14.4 % (11.6-17.2); REVIEW FLAG FINAL; WHITE BLOOD COUNT 11.5 TH/MM3 (4.0-11.0)
[2016-09-18 04:18] LABS: POTASSIUM 3.8 MEQ/L (3.5-5.1)
[2016-09-18] MEDS: INSULIN ASPART SUPPLEMENTAL SCALE SQ SCH ×3 (05:46→17:38)
[2016-09-18] MEDS: PROPRANOLOL HCL 20 MG TAB PO SCH ×3 (05:46→22:20)
[2016-09-18] MEDS: METOCLOPRAMIDE HCL SYRUP 10 MG/10 ML UDC PO SCH ×4 (07:00→20:12)
[2016-09-18] MEDS: CHLORHEXIDINE 0.12% (ORAL KIT) 15 ML CUP MT SCH ×2 (08:00→20:13)
[2016-09-18] MEDS: RESP: TOBRAMYCIN SULFATE 300 MG/5 ML NEB NEB SCH ×2 (08:02→20:09)
[2016-09-18] MEDS: BISACODYL 10 MG SUPP RECTAL SCH (09:00)
[2016-09-18] MEDS: SODIUM CHLORIDE 0.9% FLUSH 10 ML FLUSH SCH ×2 (09:00→20:12)
[2016-09-18] MEDS: SODIUM CHLORIDE 0.9% FLUSH 10 ML FLUSH IV FLUSH SCH (09:00)
[2016-09-18] MEDS: DOCUSATE SODIUM 50 MG/SENNA 8.6 MG TAB PO SCH ×2 (09:00→20:11)
--- NOTE | 2016-09-18 09:54 | RADRPT ---
EXAM DATE/TIME: 09/18/2016 08:42 [facility] COMPARISON: No previous studies available for comparison. INDICATIONS : Increased lab values. MEDICAL HISTORY : Incontinence. Headaches. Intracranial hemorrhage. Malignant hypertension. Respiratory failure. SURGICAL HISTORY : Peg tube placement. ENCOUNTER: Initial ACUITY: 2 days PAIN SCORE: Nonresponsive. LOCATION: Bilateral upper quadrant MEASUREMENTS: LIVER: 18.3 cm length COMMON DUCT: 3 mm RIGHT KIDNEY: 11.2 x 5.8 x 4.7 cm SPLEEN: 9.6 cm length FINDINGS: LIVER: Normal echotexture without focal lesion or ductal dilatation. COMMON DUCT: No intraluminal mass or stone visualized. GALLBLADDER: Minimal sludge is present in the gallbladder. There are no gallstones. There is minimal gallbladder wall thickening. PANCREAS: The visualized portions are within normal limits. RIGHT KIDNEY: No hydronephrosis, stone or mass. SPLEEN: No focal lesion. CONCLUSION: Minimal sludge in the gallbladder with gallbladder wall thickening. The patient does not appear to b e tender over the gallbladder. Champ Pascal MD FACR on September 18, 2016 at 9:50 Board Certified Radiologist. This report was verified electronically.
[2016-09-18] MEDS: levETIRAcetam INJ 500 MG in SODIUM CHLORIDE 0.9% INJ 100 ML IV SCH (11:06)
[2016-09-18] MEDS: PANTOPRAZOLE SODIUM 40 MG VIAL IV SCH (11:06)
[2016-09-18] MEDS: amLODIPine BESYLATE 5 MG TAB PO SCH (11:07)
--- NOTE | 2016-09-18 12:05 | HHI.NSPN ---
History Chief Complaint: ICH s/p suboccipital craniectomy for evacuation. Interval History 40-year-old gentleman postop day #1 status post right suboccipital craniectomy with cerebellar hemorrhage evacuation and ventriculostomy placement. His ICPs have been normal postoperatively. When sedation was held he vomited and was noted to have some eye opening and right-sided movements per the nursing staff. 09/03/16: Pt sedated on Diprivan. Decreased by RN and pt reported tracked to right side. at bedside states he had some spontaneous movement in RUE and RLE. Pts bp increases and requires sedation and anti hypertensive meds. 09/04/16: Pt sedated on Diprivan. When sedation decreased by RN patient opens both eyes and follow commands on the right side. He has left hemiplegia. Patient intubated and sedated. 09/07/16: Pt on sedation vacation currently this morning. He opens both eyes. Pupils 4mm bilaterally reactive bilaterally. Follows simple commands right side , has delayed response. Ventriculostomy drain in place at 20 cmH20, ICP14. Follow up CT head reviewed stable. 09/08/16: Pt sedated on Diprivan. Had episode of vomiting this morning. Follows intermittently right side. Left hemiparesis. Ventriculostomy drain in place at [id number]. ICP 7. 09/10/16: Pt sedation held this morning RN and pt coughing on vent and turned back on. Trach was done this morning. Not following commands, sedated. Ventric clamped ICP 3. 09/11/16: Pt on Diprivan and Fentanyl drips. Not opening eyes or following commands. Trach in place on Vent. Ventriculostomy drain in place ICPs remain normal, 3. 09/14/16: Patient on Diprivan and fentanyl drips. When held by RN this morning patient opens both eyes and would blink to command. He gripped his right hand to move his right leg to command. Left hemiplegia. 09/15/16: Pt on Diprivan drip. Off Fentanyl drip. Pt has thick secretions from trach per RN also periods of shivers. 09/16/16: Patient off to Diprivan and Fentanyl drips. He is on Precedex drip. He opens his eyes. He follows commands on the right side. Left dense hemiparesis/plegia. Pupils 2 mm bilaterally. Trach in place on vent. 09/17/16: Pt opens eyes, focuses on face. Follows simple commands right side. Left hemiplegia. Pupils 2mm bilaterally. 09/18/16: Patient with eyes open. He follows simple commands. He has left hemiplegia. He attempts to communicate with his right hand. He is currently on CPAP via trach. System Review Comments Not able to obtain given level of alertness. Exam Results Vital Signs Date Time Temp Pulse Resp B/P Pulse Ox O2 Delivery O2 Flow Rate FiO2 09/18/16 11:52 20 09/18/16 11:20 95 40 09/18/16 10:00 86 09/18/16 07:00 Mechanical Ventilator 09/18/16 04:00 99.1 112/69 Intake and Output 09/17/16 09/17/16 09/18/16 08:00 16:00 00:00 Intake Total 343 ml 85 ml 573 ml Output Total 675 ml 750 ml 850 ml Balance -332 ml -665 ml -277 ml Physical Examination Resp: Trach in place. He is on CPAP. Mild coarse bs bilaterally. Heart: NSR no murmurs Abd: Soft diminished bs Skin: Incision clean and dry. Healing well. Muscle: Moves right side to command. Left hemiplegia. Neuro: Pt sedated on Precedex but more alert. He has eyes open and focuses on my face. Pupils are 2 mm bilaterally and reactive bilaterally. Patient follows commands on the right side. No movement on left side. Lab, Micro, Other Results Laboratory Tests Test 09/18/16 03:48 White Blood Count 11.5 TH/MM3 Red Blood Count 4.11 MIL/MM3 Hemoglobin 11.3 GM/DL Hematocrit 33.6 % Mean Corpuscular Volume 81.7 FL Mean Corpuscular Hemoglobin 27.6 PG Mean Corpuscular Hemoglobin 33.7 % Concent Red Cell Distribution Width 14.4 % Platelet Count 623 TH/MM3 Mean Platelet Volume 7.7 FL Sodium Level 139 MEQ/L Potassium Level 3.8 MEQ/L Chloride Level 103 MEQ/L Carbon Dioxide Level 28.0 MEQ/L Anion Gap 8 MEQ/L Blood Urea Nitrogen 26 MG/DL Creatinine 1.15 MG/DL Estimat Glomerular Filtration 86 ML/MIN Rate Random Glucose 113 MG/DL Calcium Level 9.4 MG/DL 09/17/16 09/17/16 09/18/16 15:00 23:00 07:00 Intake Total 85 ml 573 ml 396 ml Output Total 750 ml 850 ml 650 ml Balance -665 ml -277 ml -254 ml Intake IV Total 25 ml 359 ml 396 ml Tube Feeding 154 ml Tube Irrigant 60 ml 60 ml Output Urine Total 750 ml 850 ml 650 ml Stool Total 0 ml 0 ml 0 ml Medical Decision Making Impression and Plan A: 40 y/o M with Large right cerebellar hemisphere spontaneous hemorrhage likely hypertensive with no underlying vascular abnormality noted. He is status post suboccipital craniectomy with intracranial hemorrhage evacuation and ventriculostomy placement. s/p ventriculostomy removal. P: Continue with blood pressure control Continue with neuro checks Continue with critical care. Edgar Wallace Sep 18, 2016 12:05
--- NOTE | 2016-09-18 12:40 | HHI.CCPN ---
Subjective Remarks/Hospital Course Hospital Course: 40-year-old male with reportedly no significant past medical history who was at work today and was taking out the garbage when he developed "the worse headache of his life". He was screaming in pain and [facility] was called. Upon [facility] arrival his GCS was 13 but rapidly deteriorated to GCS 3. He vomited. He was intubated on the scene without any drugs. CT brain demonstrated a large right cerebellar hemorrhage (4.9 x 5.7 cm) with effacement of the fourth ventricle. He has a very poor neurologic exam with absence of pupillary, corneal, gag, cough, oculocephalic reflexes. Not overbreathing vent but did not formally test apnea. Dr. Ovalles discussed with and she is requesting operative management. He is being taken for emergent CT angiogram and then to OR for evacuation by Dr. Ovalles. Subjective: 09/02: decompressive craniectomy overnight. per report, when he returned from the OR he apparently had a +gag. this morning remains encephalopathic. 09/03: vomiting on sedation vacation yesterday. cardene off. icp's controlled: 9 this AM. still poor neurologic exam. 09/04: on goal TF. no additional vomiting. following commands RUE, RLE. tracking. EVD at 15 cmH2O. ICP controlled. 09/05: still weakly following commands. ICP slightly elevated at 16-17 today. sedation vacation patient gets agitated, tachycardic, hypertensive. sputum growing pansensitive enterobacter. 09/06: still weakly following commands. ICP high overnight for ~30 minutes, but then improved. EVD challenged to 20 cmH2O today. still tachycardic and hypertensive. 09/07: still follows. ICP better controlled. EVD at [address] stable. 09/08: Delayed follow. Agitated when sedation lowered. Vomited early; will place NG to suction. Reglan already on board. We'd like to get to trial extubation for 's sake. Failed SBT today - will try again at higher PS. 09/09 no evidence overnight, no more vomiting, discussed with for tracheostomy placement 09/10: Tracheostomy this morning, CXR fine. DHT in good position, advance 10 cm. 09/11: Comfortable with trach; site clean. Talked with parents at bedside. 09/12: Breathes spontaneously with good excursions. 09/13: Tolerated SBT for several hours yesterday but became agitated and ineffective. Continue weaning efforts. 09/14: Still very agitated with sedation vacation. failed SBT for agitation, tachycardia, distress. 09/15: Agitation slightly better today with addition of Precedex. plan for PEG tube today. sputum growing now resistant enterobacter, and secretions are more tenacious today. 09/16: s/p PEG placement today. Following on R upper and lower ext. Continue to have large amount of secretions 09/17: Clinically better less agitated on Precedex follows commands on right side. Still has large amount of secretions, white count improving after starting cefepime. We'll attempt T piece yesterday. Liver enzymes elevated. Check ultrasound of the liver and gallbladder 09/18: No acute events overnight. Gallbladder ultrasound with minimal sludge and some gallbladder wall thickening. Negative radiographic Villegas sign. Remains on Precedex, follwos commands on right upper and lower extremity. Failed CPAP yesterday Objective Vital Signs Date Time Temp Pulse Resp B/P Pulse Ox O2 Delivery O2 Flow Rate FiO2 09/18/16 11:52 20 09/18/16 11:20 95 40 09/18/16 10:00 86 09/18/16 07:00 Mechanical Ventilator 09/18/16 04:00 99.1 112/69 Intake and Output 09/17/16 09/17/16 09/18/16 08:00 16:00 00:00 Intake Total 343 ml 85 ml 573 ml Output Total 675 ml 750 ml 850 ml Balance -332 ml -665 ml -277 ml Result Diagram: 09/18/16 0348 09/18/16 0348 Objective Remarks GENERAL: male vented via trach SKIN: Warm and dry. HEAD: healing posterior wound EYES: No scleral icterus. ENT: No nasal bleeding or discharge. Mucous membranes pink and moist. NECK: Trachea midline, trach site clean, dry. CARDIOVASCULAR: . normal rate, regular rhythm. No JVD. RESPIRATORY:CPAP/PSV. equal chest rise. Large amount mobile secretions, these are thick and zamarripa. GASTROINTESTINAL: Abdomen soft, non-tender, nondistended No guarding. PEG in place : Kumar in place MSK: No obvious deformity. No edema. Well perfused, warm. NEUROLOGICAL: Pupils 2 mm, reactive. + cough, gag. Follows commands RUE, RLE. Remains flaccid on left. A/P Assessment and Plan Assessment: 40yM with large posterior fossa IPH now s/p decompressive posterior fossa craniectomy 09/01. encephalopathy slowly improving. still guarded prognosis given size and location of the bleed. goals are aggressive. palliative care following. Sputum growing resistant enterobacter, and wbc elevated with worsening fevers. NEURO: Acute right cerebellar hemorrhage (ICH Score 4) Agitated Delirium CT brain 09/01/16 - 4.9 x 5.3 cm right cerebellar hemorrhage with effacement of the fourth ventricle. CTA 09/01/16 - No vascular abnormality. s/p Suboccipital craniectomy, cerebellar hemorrhage evacuation, ventriculostomy by Dr. Ovalles 09/01/16, removed 09/11 Continue Keppra 500 mg IV every 12-DC today. (No reported sz) Maintain normothermia with Tylenol/cooling blanket prn temp >100.4. Target RASS -1, patient comfort and vent synchrony, frequent neuro checks Zyprexa 10mg po q8h, Haldol 5mg iv q4h prn for agitation oxycodone 10mg po q4h scheduled for pain or discomfort in attempt to wean from fentanyl. Currently on Precedex attempt wean to DC as tolerated RESP: Acute hypoxic and hypercarbic respiratory failure Aspiration Intubated at the scene by [facility] with no sedation, s/p Trach 09/10, PEG 09/16 DuoNeb q6 hours; Albuterol q2 hours prn wheezing Enterobacter, Klebsiella in sputum, now Enterobacter is resistant to Rocephin. DCd rocephin and started cefepime 2gm iv q8h 09/15/16 Failing SBTs for tachycardia, tachypnea and agitation. CV: Malignant Hypertension Sinus tachycardia Labetalol and hydralazine prn SBP <150. Lopressor 5mg iv q4h prn for HR > 90. Propranolol 20mg po q8h for tachycardia and agitation. Norvasc 5 daily GI: Vomiting- resolved. Elevated liver enzymes Zofran 4 mg IV q6 hours TF at goal. bowel regimen. Liver ultrasound shows minimal sludge and some gallbladder wall thickening FEN/RENAL: Renal insufficiency, unknown baseline creatinine Hypokalemia ICU electrolyte protocol Kumar in place due to critically ill patient in need of accurate I/O monitoring and at risk for urinary obstruction Monitor I/O and creatinine Monitor electrolytes and replace as indicated per ICU electively replacement protocol. ID: sputum growing Enterobacter, now resistant. Large amount of sputum production and e/o aspiration. s/p Unasyn for empiric aspiration coverage - s/p Rocephin 09/10 - 09/15, but now Enterobacter is resistant. started cefepime 2gm iv q8h 09/15 - ID consulted to assist with duration of abx therapy. HEME: Monitor CBC, post op CBC pending. Coags WNL. Patient was not on anticoagulant or antiplatelet therapy. ENDO: Acute stress hyperglycemia Monitor bedside glucose and initiate low-dose insulin sliding scale as indicated PROPH: SCDs and teds for DVT prophylaxis. Pharmacologic DVT prophylaxis is contraindicated due to acute cerebellar hemorrhage. Protonix 40 mg IV daily for stress ulcer prophylaxis. ACCESS: PICC line Overall impression: Remain in the ICU. This patient remains critically ill with one or more organ systems which are or may become a threat to life. I have spent in excess of 31 minutes discontinuously in the care and management of this patient. This time is exclusive of procedures, and includes, but is not limited to, evaluation of the patient, review of the medical record, discussions with family, consultants, nursing staff, or respiratory therapy, and documentation in the medical record. Michael Melendez MD Sep 18, 2016 12:40
--- NOTE | 2016-09-18 16:58 | HHI.IDPN ---
Subjective Subjective Remarks ID [email or web address] for Dr Torrez chart reviewed dw RN tolerating CPAP today less secretions Had fever up to 100.3 last nigt , none today Antibiotics cefepime+ tobra nebs Allergies: Coded Allergies: No Known Allergies (Unverified , 09/09/16) Objective . Vital Signs Date Time Temp Pulse Resp B/P Pulse Ox O2 Delivery O2 Flow Rate FiO2 09/18/16 16:00 81 09/18/16 16:00 40 09/18/16 15:57 100 40 09/18/16 14:00 84 09/18/16 12:00 40 09/18/16 12:00 77 09/18/16 12:00 98.8 74 19 138/96 99 09/18/16 11:52 20 09/18/16 11:20 95 40 09/18/16 10:00 86 09/18/16 09:55 40 09/18/16 09:55 98 40 09/18/16 08:05 99 40 09/18/16 08:00 85 09/18/16 08:00 40 09/18/16 08:00 99.0 86 16 152/92 99 09/18/16 07:00 98 Mechanical Ventilator 40 09/18/16 06:00 75 09/18/16 04:00 80 09/18/16 04:00 99.1 80 16 112/69 97 09/18/16 04:00 40 09/18/16 03:31 97 40 09/18/16 02:00 84 09/18/16 01:35 97 40 09/18/16 00:00 78 09/18/16 00:00 40 09/18/16 00:00 99.1 78 16 114/76 97 09/17/16 22:00 83 09/17/16 21:00 97 40 09/17/16 20:17 97 40 09/17/16 20:00 40 09/17/16 20:00 86 09/17/16 20:00 100.0 86 17 131/84 98 09/17/16 19:00 97 Mechanical Ventilator 40 09/17/16 18:00 72 09/17/16 09/17/16 09/18/16 15:00 23:00 07:00 Intake Total 85 ml 573 ml 396 ml Output Total 750 ml 850 ml 650 ml Balance -665 ml -277 ml -254 ml Intake IV Total 25 ml 359 ml 396 ml Tube Feeding 154 ml Tube Irrigant 60 ml 60 ml Output Urine Total 750 ml 850 ml 650 ml Stool Total 0 ml 0 ml 0 ml . Laboratory Tests Test 09/17/16 09/18/16 03:45 03:48 White Blood Count 14.1 TH/MM3 11.5 TH/MM3 Red Blood Count 4.12 MIL/MM3 4.11 MIL/MM3 Hemoglobin 11.3 GM/DL 11.3 GM/DL Hematocrit 33.9 % 33.6 % Mean Corpuscular Volume 82.4 FL 81.7 FL Mean Corpuscular Hemoglobin 27.4 PG 27.6 PG Mean Corpuscular Hemoglobin 33.3 % 33.7 % Concent Red Cell Distribution Width 14.4 % 14.4 % Platelet Count 559 TH/MM3 623 TH/MM3 Mean Platelet Volume 7.3 FL 7.7 FL Neutrophils (%) (Auto) % Lymphocytes (%) (Auto) % Monocytes (%) (Auto) % Eosinophils (%) (Auto) % Basophils (%) (Auto) % Neutrophils # (Auto) TH/MM3 Lymphocytes # (Auto) TH/MM3 Monocytes # (Auto) TH/MM3 Eosinophils # (Auto) TH/MM3 Basophils # (Auto) TH/MM3 CBC Comment AUTO DIFF Differential Total Cells 100 Counted Neutrophils % (Manual) 66 % Band Neutrophils % 6 % Lymphocytes % 10 % Monocytes % 16 % Basophils % 1 % Neutrophils # (Manual) 10.3 TH/MM3 Metamyelocytes 1 % Differential Comment FINAL DIFF MANUAL Platelet Estimate HIGH Platelet Morphology Comment NORMAL Red Cell Morphology Comment NORMAL Laboratory Tests Test 09/17/16 09/18/16 03:45 03:48 Sodium Level 139 MEQ/L 139 MEQ/L Potassium Level 3.8 MEQ/L 3.8 MEQ/L Chloride Level 102 MEQ/L 103 MEQ/L Carbon Dioxide Level 27.3 MEQ/L 28.0 MEQ/L Anion Gap 10 MEQ/L 8 MEQ/L Blood Urea Nitrogen 27 MG/DL 26 MG/DL Creatinine 1.11 MG/DL 1.15 MG/DL Estimat Glomerular Filtration 90 ML/MIN 86 ML/MIN Rate Random Glucose 105 MG/DL 113 MG/DL Calcium Level 9.4 MG/DL 9.4 MG/DL Total Bilirubin 1.1 MG/DL Aspartate Amino Transf 115 U/L (AST/SGOT) Alanine Aminotransferase 196 U/L (ALT/SGPT) Alkaline Phosphatase 340 U/L Total Protein 8.7 GM/DL Albumin 2.0 GM/DL Imaging Last Last Impressions Liver Ultrasound 09/18/16 Signed Impressions: Service Date/Time: Sunday, September 18, 2016 08:42 - CONCLUSION: Minimal sludge in the gallbladder with gallbladder wall thickening. The patient does not appear to be tender over the gallbladder. Champ Pascal MD FACR Chest X-Ray 09/17/16599 Signed Impressions: Service Date/Time: September 04:47 - CONCLUSION: Bibasilar infiltrates right greater left. A tracheostomy tube in good position. PICC line in good position. Keith Malave MD Gastrostomy Tube Placement 09/16/16 Signed Impressions: Service Date/Time: Friday, September 16, 2016 11:10 - CONCLUSION: Uncomplicated gastrostomy tube placement as above. Shady Shelby MD Abdomen X-Ray 09/10/16 Signed Impressions: Service Date/Time: September 06:34 - CONCLUSION: Feeding tube tip in the stomach Al Hernandez MD Head CT 09/07/16599 Signed Impressions: Service Date/Time: Wednesday, September 07, 2016 06:05 - CONCLUSION: Stable brain appearance. Al Hernandez MD Neck CTA 09/01/162019 Signed Impressions: Service Date/Time: Thursday, September 01, 2016 20:55 - CONCLUSION: Unremarkable exam. The carotid arteries are intact. Ag Saxena MD Head CTA 09/01/162019 Signed Impressions: Service Date/Time: Thursday, September 01, 2016 20:55 - CONCLUSION: The etiology of the patient's right cerebellar h hemorrhage is not identified and there appears to be some infiltrates and possible pleural effusions in the upper lungs that are visualized. Erika Bob MD Physical Exam GENERAL: NAD sedated intubated on vent calm, sedative SKIN: Warm and dry. HEAD: healing posterior wound with no e.o infection. EYES: No scleral icterus. ENT: No nasal bleeding or discharge. Mucous membranes pink and moist. NECK: Trachea midline, trach site clean, dry. CARDIOVASCULAR: normal rate, regular rhythm. No JVD. RESPIRATORY: CTA B/L, Few scattered rhonchi. Decreased AE in bases. GASTROINTESTINAL: Abdomen soft, non-tender, nondistended No guarding. : Kumar in place MSK: No obvious deformity. No edema. Well perfused, warm. NEUROLOGICAL: Pupils 2 mm, reactive. RUE, RLE. Remains flaccid on left. Per RN FC with R side; not communicating Psych could not be assessed Kumar in place. PICC line site with no e.o infection. Assessment & Plan Remarks Assessment and Plan Enterobacter aerogenes Pneumonia (resistant to Rocephin, cefepime S, Tobra S) Respiratory failure s.p Trach Large right cerebellar hemorrhage 4.9 x 5.7 cm with effacement of the fourth ventricle. H/o Ventric during this admission. leukocytosis - improved Low grade fever, resolved Recs: Continue Cefepime IV for now cont Tobramycin nebulizations monitor fevers, WBC will need to repeat sputum clx if cont to have fever Paola Ferraro RN, MD Sep 18, 2016 16:58
[2016-09-18] MEDS: ACETAMINOPHEN 1000 MG/100 ML VIAL IV PRN (17:21)
[2016-09-18] MEDS: DEXMEDETOMIDINE INJ 400 MCG in SODIUM CHLORIDE 0.9% INJ 96 ML IV SCH (17:21)
[2016-09-18] MEDS: LABETALOL HCL 100 MG/20 ML VIAL IV PUSH PRN (23:18)
[2016-09-18] MEDS: HALOPERIDOL LACTATE 5 MG/ML AMP IV PUSH PRN (23:18)
[2016-09-19] VITALS (18 sets, daily range): BP systolic 122–154; BP diastolic 74–97; PULSE 86–104; RESP 16–22; TEMP 99.1–100.4; O2SAT 97–100
[2016-09-19] MEDS: oxyCODONE HCL ORAL CONC 20 MG/ML SYRINGE PO SCH ×6 (01:58→22:57)
[2016-09-19] MEDS: CEFEPIME INJ 2,000 MG in SODIUM CHLORIDE 0.9% INJ 100 ML IV SCH ×3 (01:58→17:56)
[2016-09-19] MEDS: CHLORHEXIDINE GLUCONATE 2 % 1 PACK (2 CLOTHS) TOP SCH (03:42)
[2016-09-19] MEDS: OLANZapine ODT 10 MG TAB PO SCH ×3 (03:43→20:10)
[2016-09-19] MEDS: PROPRANOLOL HCL 20 MG TAB PO SCH ×3 (05:12→20:10)
[2016-09-19 05:29] LABS: AUTOMATED NEUTROPHIL # 8.9 TH/MM3 (1.8-7.7); BASOPHIL # 0.1 TH/MM3 (0-0.2); BASOPHIL % 0.7 % (0.0-2.0); EOSINOPHIL # 0.3 TH/MM3 (0-0.4); EOSINOPHIL % 2.4 % (0.0-4.0); HEMATOCRIT 35.8 % (39.0-51.0); LYMPH % 14.7 % (9.0-44.0); LYMPHOCYTE # 2.1 TH/MM3 (1.0-4.8); MEAN CELL VOLUME 81.9 FL (80.0-100.0); MEAN CORPUSCULAR HEMOGLOBIN 27.8 PG (27.0-34.0); NEUT % 61.2 % (16.0-70.0); PLATELET COUNT 661 TH/MM3 (150-450); RED BLOOD COUNT 4.37 MIL/MM3 (4.50-5.90); RED CELL DISTRIBUTION WIDTH 14.3 % (11.6-17.2); WHITE BLOOD COUNT 14.5 TH/MM3 (4.0-11.0)
[2016-09-19 05:35] LABS: HEMO FLAGS AUTO DIFF
[2016-09-19 05:56] LABS: ANION GAP 10 MEQ/L (5-15); AST (GOT) 207 U/L (15-37); BICARBONATE 27.2 MEQ/L (21.0-32.0); BLOOD UREA NITROGEN 23 MG/DL (7-18); CHLORIDE 102 MEQ/L (98-107); GLOMERULAR FILTRATION RATE 85 ML/MIN (>89); MAGNESIUM 2.1 MG/DL (1.5-2.5); POTASSIUM 3.6 MEQ/L (3.5-5.1); SODIUM (NA) 139 MEQ/L (136-145)
[2016-09-19 05:57] LABS: ALT (GPT) 283 U/L (12-78)
[2016-09-19 05:59] LABS: ALKALINE PHOSPHATASE 360 U/L (45-117); TOTAL BILIRUBIN ADULT 0.9 MG/DL (0.2-1.0)
[2016-09-19] MEDS: INSULIN ASPART SUPPLEMENTAL SCALE SQ SCH ×2 (06:00)
[2016-09-19] MEDS: METOCLOPRAMIDE HCL SYRUP 10 MG/10 ML UDC PO SCH ×4 (06:05→19:39)
[2016-09-19] MEDS: RESP: TOBRAMYCIN SULFATE 300 MG/5 ML NEB NEB SCH ×2 (07:45→19:45)
[2016-09-19] MEDS: CHLORHEXIDINE 0.12% (ORAL KIT) 15 ML CUP MT SCH ×2 (08:26→20:00)
[2016-09-19] MEDS: PANTOPRAZOLE SODIUM 40 MG VIAL IV SCH (08:26)
[2016-09-19] MEDS: BISACODYL 10 MG SUPP RECTAL SCH (08:27)
[2016-09-19] MEDS: SODIUM CHLORIDE 0.9% FLUSH 10 ML FLUSH IV FLUSH SCH (08:27)
[2016-09-19] MEDS: DOCUSATE SODIUM 50 MG/SENNA 8.6 MG TAB PO SCH ×2 (08:27→19:39)
[2016-09-19] MEDS: amLODIPine BESYLATE 5 MG TAB PO SCH (08:27)
[2016-09-19] MEDS: SODIUM CHLORIDE 0.9% FLUSH 10 ML FLUSH SCH ×2 (08:27→20:10)
--- NOTE | 2016-09-19 08:49 | HHI.NSPN ---
(Edgar Wallace) History Chief Complaint: ICH s/p suboccipital craniectomy for evacuation. (Edgar Wallace) Interval History 40-year-old gentleman postop day #1 status post right suboccipital craniectomy with cerebellar hemorrhage evacuation and ventriculostomy placement. His ICPs have been normal postoperatively. When sedation was held he vomited and was noted to have some eye opening and right-sided movements per the nursing staff. 09/03/16: Pt sedated on Diprivan. Decreased by RN and pt reported tracked to right side. at bedside states he had some spontaneous movement in RUE and RLE. Pts bp increases and requires sedation and anti hypertensive meds. 09/04/16: Pt sedated on Diprivan. When sedation decreased by RN patient opens both eyes and follow commands on the right side. He has left hemiplegia. Patient intubated and sedated. 09/07/16: Pt on sedation vacation currently this morning. He opens both eyes. Pupils 4mm bilaterally reactive bilaterally. Follows simple commands right side , has delayed response. Ventriculostomy drain in place at 20 cmH20, ICP14. Follow up CT head reviewed stable. 09/08/16: Pt sedated on Diprivan. Had episode of vomiting this morning. Follows intermittently right side. Left hemiparesis. Ventriculostomy drain in place at [id number]. ICP 7. 6: Pt sedation held this morning RN and pt coughing on vent and turned back on. Trach was done this morning. Not following commands, sedated. Ventric clamped ICP 3. 09/11/16: Pt on Diprivan and Fentanyl drips. Not opening eyes or following commands. Trach in place on Vent. Ventriculostomy drain in place ICPs remain normal, 3. 09/14/16: Patient on Diprivan and fentanyl drips. When held by RN this morning patient opens both eyes and would blink to command. He gripped his right hand to move his right leg to command. Left hemiplegia. 09/15/16: Pt on Diprivan drip. Off Fentanyl drip. Pt has thick secretions from trach per RN also periods of shivers. 09/16/16: Patient off to Diprivan and Fentanyl drips. He is on Precedex drip. He opens his eyes. He follows commands on the right side. Left dense hemiparesis/plegia. Pupils 2 mm bilaterally. Trach in place on vent. 09/17/16: Pt opens eyes, focuses on face. Follows simple commands right side. Left hemiplegia. Pupils 2mm bilaterally. 09/18/16: Patient with eyes open. He follows simple commands. He has left hemiplegia. He attempts to communicate with his right hand. He is currently on CPAP via trach. 09/19/16: Patient with eyes open. He follows simple commands. He is nodding his head to some questions. A left hemiplegia. Trach in place he is on a vent with CPAP trials. (Edgar Wallace) Exam Results Vital Signs Date Time Temp Pulse Resp B/P Pulse Ox O2 Delivery O2 Flow Rate FiO2 09/19/16 07:45 99 40 09/19/16 06:00 87 09/19/16 04:00 99.1 16 122/74 09/18/16 19:00 Mechanical Ventilator Intake and Output 09/18/16 09/18/16 09/19/16 08:00 16:00 00:00 Intake Total 396 ml 485 ml 474 ml Output Total 650 ml 900 ml 650 ml Balance -254 ml -415 ml -176 ml (Edgar Wallace) Physical Examination Resp: Trach in place. Pressure control rate 16. FiO2 40%. PEEP 5. Heart: NSR no murmurs Abd: Soft diminished bs Skin: Incision clean and dry. Healing well. Muscle: Moves right side to command. Left hemiplegia. Neuro: Pt sedated on Precedex but more alert. He has eyes open and focuses on my face. He nods his head to some questions. Pupils are 2 mm bilaterally and reactive bilaterally. Patient follows commands on the right side. No movement on left side. At times periods of frustration and agitation. (Edgar Wallace) Lab, Micro, Other Results Last Impressions Liver Ultrasound 09/18/16 0000 Signed Impressions: Service Date/Time: Sunday, September 18, 2016 08:42 - CONCLUSION: Minimal sludge in the gallbladder with gallbladder wall thickening. The patient does not appear to be tender over the gallbladder. Champ Pascal MD FACR Chest X-Ray 09/17/16 0600 Signed Impressions: Service Date/Time: September 04:47 - CONCLUSION: Bibasilar infiltrates right greater left. A tracheostomy tube in good position. PICC line in good position. Keith Malave MD Gastrostomy Tube Placement 09/16/16 0000 Signed Impressions: Service Date/Time: Friday, September 16, 2016 11:10 - CONCLUSION: Uncomplicated gastrostomy tube placement as above. Shady Shelby MD Abdomen X-Ray 09/10/16 0000 Signed Impressions: Service Date/Time: September 06:34 - CONCLUSION: Feeding tube tip in the stomach Al Hernandez MD Head CT 09/07/16 06 Signed Impressions: Service Date/Time: Wednesday, September 07, 2016 06:05 - CONCLUSION: Stable brain appearance. Al Hernandez MD Neck CTA 09/01/162019 Signed Impressions: Service Date/Time: Thursday, September 01, 2016 20:55 - CONCLUSION: Unremarkable exam. The carotid arteries are intact. Ag Saxena MD Head CTA 09/01/162019 Signed Impressions: Service Date/Time: Thursday, September 01, 2016 20:55 - CONCLUSION: The etiology of the patient's right cerebellar h hemorrhage is not identified and there appears to be some infiltrates and possible pleural effusions in the upper lungs that are visualized. Erika Bob MD Laboratory Tests Test 09/19/16 05:05 White Blood Count 14.5 TH/MM3 Red Blood Count 4.37 MIL/MM3 Hemoglobin 12.1 GM/DL Hematocrit 35.8 % Mean Corpuscular Volume 81.9 FL Mean Corpuscular Hemoglobin 27.8 PG Mean Corpuscular Hemoglobin 34.0 % Concent Red Cell Distribution Width 14.3 % Platelet Count 661 TH/MM3 Mean Platelet Volume 7.7 FL Neutrophils (%) (Auto) 61.2 % Lymphocytes (%) (Auto) 14.7 % Monocytes (%) (Auto) 21.0 % Eosinophils (%) (Auto) 2.4 % Basophils (%) (Auto) 0.7 % Neutrophils # (Auto) 8.9 TH/MM3 Lymphocytes # (Auto) 2.1 TH/MM3 Monocytes # (Auto) 3.0 TH/MM3 Eosinophils # (Auto) 0.3 TH/MM3 Basophils # (Auto) 0.1 TH/MM3 CBC Comment AUTO DIFF Sodium Level 139 MEQ/L Potassium Level 3.6 MEQ/L Chloride Level 102 MEQ/L Carbon Dioxide Level 27.2 MEQ/L Anion Gap 10 MEQ/L Blood Urea Nitrogen 23 MG/DL Creatinine 1.16 MG/DL Estimat Glomerular Filtration 85 ML/MIN Rate Random Glucose 113 MG/DL Calcium Level 9.5 MG/DL Magnesium Level 2.1 MG/DL Total Bilirubin 0.9 MG/DL Aspartate Amino Transf 207 U/L (AST/SGOT) Alanine Aminotransferase 283 U/L (ALT/SGPT) Alkaline Phosphatase 360 U/L Total Protein 8.7 GM/DL Albumin 2.2 GM/DL 09/18/16 09/18/16 09/19/16 15:00 23:00 07:00 Intake Total 485 ml 474 ml 277 ml Output Total 900 ml 650 ml 580 ml Balance -415 ml -176 ml -303 ml Intake IV Total 434 ml 262 ml 62 ml Tube Feeding 51 ml 162 ml 215 ml Tube Irrigant 50 ml Output Urine Total 900 ml 650 ml 580 ml Stool Total 0 ml 0 ml (Edgar Wallace) Medical Decision Making Impression and Plan A: 40 y/o M with Large right cerebellar hemisphere spontaneous hemorrhage likely hypertensive with no underlying vascular abnormality noted. He is status post suboccipital craniectomy with intracranial hemorrhage evacuation and ventriculostomy placement. s/p ventriculostomy removal. P: Continue with blood pressure control Continue with neuro checks Continue with critical care. (Edgar Wallace) Attending Statement The exam, history, and the medical decision-making described in the above note were completed with the assistance of the mid-level provider. I reviewed and agree with the findings presented. I attest that I had a [id number] encounter with the patient on the same day, and personally performed and documented my assessment and findings in the medical record. (Gutierrez Ovalles MD) Edgar Wallace Sep 19, 2016 08:49 Gutierrez Ovalles MD Sep 19, 2016 11:01
[2016-09-19 10:37] LABS: BANDS 11 % (0-6); MYELOCYTES 1 % (0-0); NEUTROPHIL # MANUAL DIFF 9.3 TH/MM3 (1.8-7.7); PLATELET ESTIMATE SMEAR HIGH (NORMAL); PLATELET MORPHOLOGY NORMAL (NORMAL); POLYS (SEG NEUTROPHILS) 52 % (16-70); SCAN/DIFF FINAL DIFF MANUAL; WBC DIFF SAMPLE 100
--- NOTE | 2016-09-19 10:57 | HHI.CCPN ---
Subjective Remarks/Hospital Course Hospital Course: 40-year-old male with reportedly no significant past medical history who was at work today and was taking out the garbage when he developed "the worse headache of his life". He was screaming in pain and [facility] was called. Upon [facility] arrival his GCS was 13 but rapidly deteriorated to GCS 3. He vomited. He was intubated on the scene without any drugs. CT brain demonstrated a large right cerebellar hemorrhage (4.9 x 5.7 cm) with effacement of the fourth ventricle. He has a very poor neurologic exam with absence of pupillary, corneal, gag, cough, oculocephalic reflexes. Not overbreathing vent but did not formally test apnea. Dr. Ovalles discussed with and she is requesting operative management. He is being taken for emergent CT angiogram and then to OR for evacuation by Dr. Ovalles. Subjective: 09/02: decompressive craniectomy overnight. per report, when he returned from the OR he apparently had a +gag. this morning remains encephalopathic. 09/03: vomiting on sedation vacation yesterday. cardene off. icp's controlled: 9 this AM. still poor neurologic exam. 09/04: on goal TF. no additional vomiting. following commands RUE, RLE. tracking. EVD at 15 cmH2O. ICP controlled. 09/05: still weakly following commands. ICP slightly elevated at 16-17 today. sedation vacation patient gets agitated, tachycardic, hypertensive. sputum growing pansensitive enterobacter. 09/06: still weakly following commands. ICP high overnight for ~30 minutes, but then improved. EVD challenged to 20 cmH2O today. still tachycardic and hypertensive. 09/07: still follows. ICP better controlled. EVD at [address] stable. 09/08: Delayed follow. Agitated when sedation lowered. Vomited early; will place NG to suction. Reglan already on board. We'd like to get to trial extubation for 's sake. Failed SBT today - will try again at higher PS. 09/09 no evidence overnight, no more vomiting, discussed with for tracheostomy placement 09/10: Tracheostomy this morning, CXR fine. DHT in good position, advance 10 cm. 09/11: Comfortable with trach; site clean. Talked with parents at bedside. 09/12: Breathes spontaneously with good excursions. 09/13: Tolerated SBT for several hours yesterday but became agitated and ineffective. Continue weaning efforts. 09/14: Still very agitated with sedation vacation. failed SBT for agitation, tachycardia, distress. 09/15: Agitation slightly better today with addition of Precedex. plan for PEG tube today. sputum growing now resistant enterobacter, and secretions are more tenacious today. 09/16: s/p PEG placement today. Following on R upper and lower ext. Continue to have large amount of secretions 09/17: Clinically better less agitated on Precedex follows commands on right side. Still has large amount of secretions, white count improving after starting cefepime. We'll attempt T piece yesterday. Liver enzymes elevated. Check ultrasound of the liver and gallbladder 09/18: No acute events overnight. Gallbladder ultrasound with minimal sludge and some gallbladder wall thickening. Negative radiographic Villegas sign. Remains on Precedex, follwos commands on right upper and lower extremity. Failed CPAP yesterday 09/19 doing well on CPAP, we'll continue CPAP overnight if tolerated Objective Vital Signs Date Time Temp Pulse Resp B/P Pulse Ox O2 Delivery O2 Flow Rate FiO2 09/19/16 08:00 99.7 88 18 150/93 100 09/19/16 08:00 40 09/19/16 07:00 Mechanical Ventilator Intake and Output 09/18/16 09/18/16 09/18/16 07:59 15:59 23:59 Intake Total 396 ml 485 ml 474 ml Output Total 650 ml 900 ml 650 ml Balance -254 ml -415 ml -176 ml Result Diagram: 09/19/16 0505 09/19/16 0505 Objective Remarks GENERAL: male vented via trach SKIN: Warm and dry. HEAD: healing posterior wound EYES: No scleral icterus. ENT: No nasal bleeding or discharge. Mucous membranes pink and moist. NECK: Trachea midline, trach site clean, dry. CARDIOVASCULAR: . normal rate, regular rhythm. No JVD. RESPIRATORY:CPAP/PSV. equal chest rise. Large amount mobile secretions, these are thick and zamarripa. GASTROINTESTINAL: Abdomen soft, non-tender, nondistended No guarding. PEG in place : Kumar in place MSK: No obvious deformity. No edema. Well perfused, warm. NEUROLOGICAL: Pupils 2 mm, reactive. + cough, gag. Follows commands RUE, RLE. Remains flaccid on left. A/P Assessment and Plan Assessment: 40yM with large posterior fossa IPH now s/p decompressive posterior fossa craniectomy 09/01. encephalopathy slowly improving. still guarded prognosis given size and location of the bleed. goals are aggressive. palliative care following. Sputum growing resistant enterobacter, and wbc elevated with worsening fevers. NEURO: Acute right cerebellar hemorrhage (ICH Score 4) Agitated Delirium CT brain 09/01/16 - 4.9 x 5.3 cm right cerebellar hemorrhage with effacement of the fourth ventricle. CTA 09/01/16 - No vascular abnormality. s/p Suboccipital craniectomy, cerebellar hemorrhage evacuation, ventriculostomy by Dr. Oavlles 09/01/16, removed 09/11 Continue Keppra 500 mg IV every 12-DC today. (No reported sz) Maintain normothermia with Tylenol/cooling blanket prn temp >100.4. Target RASS 0, patient comfort Frequent neuro checks Zyprexa 10mg po q8h, Haldol 5mg iv q4h prn for agitation Oxycodone 10mg po q4h scheduled for pain or discomfort in attempt to wean from fentanyl. Currently on Precedex attempt wean to DC as tolerated RESP: Acute hypoxic and hypercarbic respiratory failure Aspiration Intubated at the scene by [facility] with no sedation, s/p Trach 09/10, PEG 09/16 DuoNeb q6 hours; Albuterol q2 hours prn wheezing Enterobacter, Klebsiella in sputum, now Enterobacter is resistant to Rocephin. DCd rocephin and started cefepime 2gm iv q8h 09/15/16 Failing SBTs for tachycardia, tachypnea and agitation. CV: Malignant Hypertension Sinus tachycardia Labetalol and hydralazine prn SBP <150. Lopressor 5mg iv q4h prn for HR > 90. Propranolol 20mg po q8h for tachycardia and agitation. Norvasc 5 daily GI: Vomiting- resolved. Elevated liver enzymes Zofran 4 mg IV q6 hours TF at goal. Bowel regimen. Liver ultrasound shows minimal sludge and some gallbladder wall thickening FEN/RENAL: Renal insufficiency, unknown baseline creatinine Hypokalemia ICU electrolyte protocol Kumar changed to [place] condom catheter Monitor I/O and creatinine ID: sputum growing Enterobacter, now resistant. Large amount of sputum production and e/o aspiration. s/p Unasyn for empiric aspiration coverage - s/p Rocephin 09/10 - 09/15, but now Enterobacter is resistant. started cefepime 2gm iv q8h 09/15 - ID consulted to assist with duration of abx therapy. HEME: Monitor CBC, post op CBC pending. Coags WNL. Patient was not on anticoagulant or antiplatelet therapy. ENDO: Acute stress hyperglycemia Monitor bedside glucose and initiate low-dose insulin sliding scale as indicated PROPH: SCDs and teds for DVT prophylaxis. Pharmacologic DVT prophylaxis is contraindicated due to acute cerebellar hemorrhage. Protonix 40 mg IV daily for stress ulcer prophylaxis. ACCESS: PICC line Critical Care: The total critical care time was 35 minutes. Time to perform other separately billable procedures was not included in the critical care time. Orestes Wang MD Sep 19, 2016 10:57
[2016-09-19] MEDS: SCOPOLAMINE 1.5 MG PATCH T-DERMAL SCH (11:25)
[2016-09-19] MEDS: LABETALOL HCL 100 MG/20 ML VIAL IV PUSH PRN (12:25)
[2016-09-19] MEDS: ONDANSETRON HCL 4 MG/2 ML VIAL IV PUSH PRN (14:14)
--- NOTE | 2016-09-19 14:25 | HHI.IDPN ---
Subjective Subjective Remarks ID [id number] for Dr Shan gan RN Pt has emesis today + diarrhea Large amount of very clear tenetious secretions on Tpiece trial cont to have low grade fevers just bellow 100 (99.7F) WBC is up to 14 K, bandemia 16 % Antibiotics cefepime+ tobra nebs Allergies: Coded Allergies: No Known Allergies (Unverified , 09/09/16) Objective . Vital Signs Date Time Temp Pulse Resp B/P Pulse Ox O2 Delivery O2 Flow Rate FiO2 09/19/16 14:00 103 09/19/16 12:00 40 09/19/16 12:00 95 09/19/16 12:00 99.7 94 22 154/92 97 09/19/16 11:19 98 40 09/19/16 10:00 86 09/19/16 08:00 99.7 88 18 150/93 100 09/19/16 08:00 92 09/19/16 08:00 40 09/19/16 07:45 99 40 09/19/16 07:00 99 Mechanical Ventilator 40 09/19/16 06:00 87 09/19/16 04:38 99 40 09/19/16 04:00 40 09/19/16 04:00 94 09/19/16 04:00 99.1 88 16 122/74 100 09/19/16 02:00 89 09/19/16 00:20 100 40 09/19/16 00:00 94 09/19/16 00:00 40 09/19/16 00:00 99.7 94 16 146/97 100 09/18/16 23:20 15 09/18/16 22:00 98 09/18/16 22:00 99.7 94 16 151/90 100 09/18/16 20:10 98 40 09/18/16 20:00 40 09/18/16 20:00 98 09/18/16 19:00 100 Mechanical Ventilator 40 09/18/16 18:00 87 09/18/16 16:00 100.2 86 16 129/83 100 09/18/16 16:00 81 09/18/16 16:00 40 09/18/16 15:57 100 40 09/18/16 09/18/16 09/19/16 15:00 23:00 07:00 Intake Total 485 ml 474 ml 277 ml Output Total 900 ml 650 ml 580 ml Balance -415 ml -176 ml -303 ml Intake IV Total 434 ml 262 ml 62 ml Tube Feeding 51 ml 162 ml 215 ml Tube Irrigant 50 ml Output Urine Total 900 ml 650 ml 580 ml Stool Total 0 ml 0 ml . Laboratory Tests Test 09/18/16 09/19/16 03:48 05:05 White Blood Count 11.5 TH/MM3 14.5 TH/MM3 Red Blood Count 4.11 MIL/MM3 4.37 MIL/MM3 Hemoglobin 11.3 GM/DL 12.1 GM/DL Hematocrit 33.6 % 35.8 % Mean Corpuscular Volume 81.7 FL 81.9 FL Mean Corpuscular Hemoglobin 27.6 PG 27.8 PG Mean Corpuscular Hemoglobin 33.7 % 34.0 % Concent Red Cell Distribution Width 14.4 % 14.3 % Platelet Count 623 TH/MM3 661 TH/MM3 Mean Platelet Volume 7.7 FL 7.7 FL Neutrophils (%) (Auto) 61.2 % Lymphocytes (%) (Auto) 14.7 % Monocytes (%) (Auto) 21.0 % Eosinophils (%) (Auto) 2.4 % Basophils (%) (Auto) 0.7 % Neutrophils # (Auto) 8.9 TH/MM3 Lymphocytes # (Auto) 2.1 TH/MM3 Monocytes # (Auto) 3.0 TH/MM3 Eosinophils # (Auto) 0.3 TH/MM3 Basophils # (Auto) 0.1 TH/MM3 CBC Comment AUTO DIFF Differential Total Cells 100 Counted Neutrophils % (Manual) 52 % Band Neutrophils % 11 % Lymphocytes % 20 % Monocytes % 16 % Neutrophils # (Manual) 9.3 TH/MM3 Myelocytes 1 % Differential Comment FINAL DIFF MANUAL Platelet Estimate HIGH Platelet Morphology Comment NORMAL Laboratory Tests Test 09/18/16 09/19/16 03:48 05:05 Sodium Level 139 MEQ/L 139 MEQ/L Potassium Level 3.8 MEQ/L 3.6 MEQ/L Chloride Level 103 MEQ/L 102 MEQ/L Carbon Dioxide Level 28.0 MEQ/L 27.2 MEQ/L Anion Gap 8 MEQ/L 10 MEQ/L Blood Urea Nitrogen 26 MG/DL 23 MG/DL Creatinine 1.15 MG/DL 1.16 MG/DL Estimat Glomerular Filtration 86 ML/MIN 85 ML/MIN Rate Random Glucose 113 MG/DL 113 MG/DL Calcium Level 9.4 MG/DL 9.5 MG/DL Magnesium Level 2.1 MG/DL Total Bilirubin 0.9 MG/DL Aspartate Amino Transf 207 U/L (AST/SGOT) Alanine Aminotransferase 283 U/L (ALT/SGPT) Alkaline Phosphatase 360 U/L Total Protein 8.7 GM/DL Albumin 2.2 GM/DL Imaging Last Impressions Liver Ultrasound 09/18/16 0000 Signed Impressions: Service Date/Time: Sunday, September 18, 2016 08:42 - CONCLUSION: Minimal sludge in the gallbladder with gallbladder wall thickening. The patient does not appear to be tender over the gallbladder. hCamp Pascal MD FACR Chest X-Ray 09/17/16599 Signed Impressions: Service Date/Time: September 04:47 - CONCLUSION: Bibasilar infiltrates right greater left. A tracheostomy tube in good position. PICC line in good position. Keith Malave MD Gastrostomy Tube Placement 09/16/16 0000 Signed Impressions: Service Date/Time: Friday, September 16, 2016 11:10 - CONCLUSION: Uncomplicated gastrostomy tube placement as above. Shady Shelby MD Abdomen X-Ray 09/10/16 0000 Signed Impressions: Service Date/Time: September 06:34 - CONCLUSION: Feeding tube tip in the stomach Al Hernandez MD Head CT 09/07/16599 Signed Impressions: Service Date/Time: Wednesday, September 07, 2016 06:05 - CONCLUSION: Stable brain appearance. Al Hernandez MD Neck CTA 09/01/162019 Signed Impressions: Service Date/Time: Thursday, September 01, 2016 20:55 - CONCLUSION: Unremarkable exam. The carotid arteries are intact. Ag Saxena MD Head CTA 09/01/162019 Signed Impressions: Service Date/Time: Thursday, September 01, 2016 20:55 - CONCLUSION: The etiology of the patient's right cerebellar h hemorrhage is not identified and there appears to be some infiltrates and possible pleural effusions in the upper lungs that are visualized. Erika Bob MD Physical Exam GENERAL: NAD sedated intubated on vent calm, sedative SKIN: Warm and dry. HEAD: healing posterior wound with no e.o infection. EYES: No scleral icterus. ENT: No nasal bleeding or discharge. Mucous membranes pink and moist. NECK: Trachea midline, trach site clean, dry. CARDIOVASCULAR: normal rate, regular rhythm. No JVD. RESPIRATORY: CTA B/L, Few scattered rhonchi. Decreased AE in bases. GASTROINTESTINAL: Abdomen soft,+ distended No reation to pa,lpation No guarding. : Kumar in place MSK: No obvious deformity. No edema. Well perfused, warm. NEUROLOGICAL: Pupils 2 mm, reactive. RUE, RLE. Remains flaccid on left. FC with R side; not communicating slightly squeezes c L hand Psych could not be assessed Kumar in place. PICC line site with no e.o infection. Assessment & Plan Remarks Assessment and Plan Enterobacter aerogenes Pneumonia (resistant to Rocephin, cefepime S, Tobra S) Respiratory failure s.p Trach Large right cerebellar hemorrhage 4.9 x 5.7 cm with effacement of the fourth ventricle. H/o Ventric during this admission. Low grade fever and worsening leukocytosis ? calculous cholecystitis (fever, leukocytosis, US findings cw choilecystitis, increasing LFTs) Recs: Continue Cefepime IV for now add flagyl HIDA consult GI cont Tobramycin nebulizations monitor fevers, WBC chk stool for C.diff will dw Dr Kathleen gan RN Dr Zheng to cover for me Paola Vang MD Sep 19, 2016 14:25
[2016-09-19] MEDS: metroNIDAZOLE 500 MG INJ 100 ML IV SCH ×2 (14:36→22:57)
[2016-09-19 19:29] LABS: C. DIFF EPI 027 PRESUMPTIVE NEGATIVE (NEGATIVE); C. DIFF TOXIN PCR NEGATIVE (NEGATIVE)
[2016-09-19] MEDS: ACETAMINOPHEN 1000 MG/100 ML VIAL IV PRN (20:10)
[2016-09-20] VITALS (19 sets, daily range): BP systolic 125–151; BP diastolic 81–97; PULSE 86–109; RESP 15–20; TEMP 98.7–99.4; O2SAT 97–100
[2016-09-20] MEDS: oxyCODONE HCL ORAL CONC 20 MG/ML SYRINGE PO SCH ×6 (01:20→22:22)
[2016-09-20] MEDS: CEFEPIME INJ 2,000 MG in SODIUM CHLORIDE 0.9% INJ 100 ML IV SCH ×3 (01:20→18:30)
[2016-09-20] MEDS: CHLORHEXIDINE GLUCONATE 2 % 1 PACK (2 CLOTHS) TOP SCH (04:00)
[2016-09-20 04:42] LABS: ANION GAP 9 MEQ/L (5-15); AST (GOT) 144 U/L (15-37); BICARBONATE 26.1 MEQ/L (21.0-32.0); BLOOD UREA NITROGEN 22 MG/DL (7-18); CHLORIDE 104 MEQ/L (98-107); GLOMERULAR FILTRATION RATE 100 ML/MIN (>89); MAGNESIUM 2.1 MG/DL (1.5-2.5); POTASSIUM 3.6 MEQ/L (3.5-5.1); SODIUM (NA) 139 MEQ/L (136-145)
[2016-09-20 04:47] LABS: ALKALINE PHOSPHATASE 337 U/L (45-117); ALT (GPT) 239 U/L (12-78); TOTAL BILIRUBIN ADULT 0.9 MG/DL (0.2-1.0)
[2016-09-20 05:17] LABS: BLOOD GAS BASE EXCESS 0.6 mmol/L (-2-2); BLOOD GAS CARBOXYHEMOGLOBIN 0.7 % (0-4); BLOOD GAS HCO3 25 mmol/L (22-26); BLOOD GAS METHEMOGLOBIN 0.9 % (0-2); BLOOD GAS O2 HGB SATURATION 97 % (90-100); BLOOD GAS OXYGEN CONTENT 17.6 Vol % (12.0-20.0); BLOOD GAS PCO2 38 mmHg (38-42); BLOOD GAS PO2 130 mmHg (61-120); BLOOD GAS TOTAL HGB 12.8 G/DL (12.0-16.0); TEMP CORR TO 98.6
[2016-09-20 05:18] LABS: CRITICAL VALUE NO; DRAW SITE RT RADIAL; FIO2 40 %; OXYGEN DEVICE VENTILATOR; VENT SETTINGS PRVC/AC
[2016-09-20 05:19] LABS: NUMBER OF ARTERIAL PUNCTURES 1; STAT NO; ULNAR PULSE PRESENT
[2016-09-20] MEDS: METOCLOPRAMIDE HCL SYRUP 10 MG/10 ML UDC PO SCH ×4 (06:12→21:00)
[2016-09-20] MEDS: OLANZapine ODT 10 MG TAB PO SCH ×3 (06:12→19:30)
[2016-09-20] MEDS: metroNIDAZOLE 500 MG INJ 100 ML IV SCH ×3 (06:12→22:23)
[2016-09-20] MEDS: PROPRANOLOL HCL 20 MG TAB PO SCH ×3 (06:12→22:22)
[2016-09-20] MEDS: RESP: TOBRAMYCIN SULFATE 300 MG/5 ML NEB NEB SCH ×2 (07:29→20:20)
[2016-09-20] MEDS: CHLORHEXIDINE 0.12% (ORAL KIT) 15 ML CUP MT SCH ×2 (08:00→20:00)
--- NOTE | 2016-09-20 08:04 | HHI.NSPN ---
History Chief Complaint: ICH s/p suboccipital craniectomy for evacuation. Interval History 40-year-old gentleman postop day #1 status post right suboccipital craniectomy with cerebellar hemorrhage evacuation and ventriculostomy placement. His ICPs have been normal postoperatively. When sedation was held he vomited and was noted to have some eye opening and right-sided movements per the nursing staff. 09/03/16: Pt sedated on Diprivan. Decreased by RN and pt reported tracked to right side. at bedside states he had some spontaneous movement in RUE and RLE. Pts bp increases and requires sedation and anti hypertensive meds. 09/04/16: Pt sedated on Diprivan. When sedation decreased by RN patient opens both eyes and follow commands on the right side. He has left hemiplegia. Patient intubated and sedated. 09/07/16: Pt on sedation vacation currently this morning. He opens both eyes. Pupils 4mm bilaterally reactive bilaterally. Follows simple commands right side , has delayed response. Ventriculostomy drain in place at 20 cmH20, ICP14. Follow up CT head reviewed stable. 09/08/16: Pt sedated on Diprivan. Had episode of vomiting this morning. Follows intermittently right side. Left hemiparesis. Ventriculostomy drain in place at [id number]. ICP 7. 09/10/16: Pt sedation held this morning RN and pt coughing on vent and turned back on. Trach was done this morning. Not following commands, sedated. Ventric clamped ICP 3. 09/11/16: Pt on Diprivan and Fentanyl drips. Not opening eyes or following commands. Trach in place on Vent. Ventriculostomy drain in place ICPs remain normal, 3. 09/14/16: Patient on Diprivan and fentanyl drips. When held by RN this morning patient opens both eyes and would blink to command. He gripped his right hand to move his right leg to command. Left hemiplegia. 09/15/16: Pt on Diprivan drip. Off Fentanyl drip. Pt has thick secretions from trach per RN also periods of shivers. 09/16/16: Patient off to Diprivan and Fentanyl drips. He is on Precedex drip. He opens his eyes. He follows commands on the right side. Left dense hemiparesis/plegia. Pupils 2 mm bilaterally. Trach in place on vent. 09/17/16: Pt opens eyes, focuses on face. Follows simple commands right side. Left hemiplegia. Pupils 2mm bilaterally. 09/18/16: Patient with eyes open. He follows simple commands. He has left hemiplegia. He attempts to communicate with his right hand. He is currently on CPAP via trach. 09/19/16: Patient with eyes open. He follows simple commands. He is nodding his head to some questions. A left hemiplegia. Trach in place he is on a vent with CPAP trials. 09/20/16: Pt opens eyes with simulated. Patient currently resting. Periods of agitation when woken up. Left hemiplegia. Trach in place patient on vent. System Review Comments Not able to obtain given clinical condition. Exam Results Vital Signs Date Time Temp Pulse Resp B/P Pulse Ox O2 Delivery O2 Flow Rate FiO2 09/20/16 07:29 100 40 09/20/16 06:00 92 09/20/16 04:00 99.4 16 127/82 09/19/16 22:00 Mechanical Ventilator Intake and Output 09/19/16 09/19/16 09/20/16 08:00 16:00 00:00 Intake Total 277 ml 588 ml 394 ml Output Total 580 ml 775 ml 350 ml Balance -303 ml -187 ml 44 ml Physical Examination Resp: Trach in place. Pressure control rate 16. FiO2 40%. PEEP 5. Heart: NSR no murmurs Abd: Soft diminished bs Skin: Incision clean and dry. Healing well. Muscle: Moves right side to command. Left hemiplegia. Neuro: Patient currently resting. Self agitation when awake. He has been followed commands. Pupils are 3 mm bilaterally reactive bilaterally. Lab, Micro, Other Results Last Impressions Liver Ultrasound 09/18/16 0000 Signed Impressions: Service Date/Time: Sunday, September 18, 2016 08:42 - CONCLUSION: Minimal sludge in the gallbladder with gallbladder wall thickening. The patient does not appear to be tender over the gallbladder. Champ Pascal MD FACR Chest X-Ray 09/17/16 0600 Signed Impressions: Service Date/Time: September 04:47 - CONCLUSION: Bibasilar infiltrates right greater left. A tracheostomy tube in good position. PICC line in good position. Keith Malave MD Gastrostomy Tube Placement 09/16/16 0000 Signed Impressions: Service Date/Time: Friday, September 16, 2016 11:10 - CONCLUSION: Uncomplicated gastrostomy tube placement as above. Shady Shelby MD Abdomen X-Ray 09/10/16 0000 Signed Impressions: Service Date/Time: September 06:34 - CONCLUSION: Feeding tube tip in the stomach Al Hernandez MD Head CT 09/07/16 06 Signed Impressions: Service Date/Time: Wednesday, September 07, 2016 06:05 - CONCLUSION: Stable brain appearance. Al Hernandez MD Neck CTA 09/01/162019 Signed Impressions: Service Date/Time: Thursday, September 01, 2016 20:55 - CONCLUSION: Unremarkable exam. The carotid arteries are intact. Ag Saxena MD Head CTA 09/01/162019 Signed Impressions: Service Date/Time: Thursday, September 01, 2016 20:55 - CONCLUSION: The etiology of the patient's right cerebellar h hemorrhage is not identified and there appears to be some infiltrates and possible pleural effusions in the upper lungs that are visualized. Erika Bob MD Laboratory Tests Test 09/19/16 09/20/16 09/20/16 17:00 04:00 04:55 Stool C. difficile Toxin (PCR) NEGATIVE Stl C. difficile Toxin PRESUMPTIVE Epiderm 027 NEGATIVE Sodium Level 139 MEQ/L Potassium Level 3.6 MEQ/L Chloride Level 104 MEQ/L Carbon Dioxide Level 26.1 MEQ/L Anion Gap 9 MEQ/L Blood Urea Nitrogen 22 MG/DL Creatinine 1.01 MG/DL Estimat Glomerular Filtration 100 ML/MIN Rate Random Glucose 97 MG/DL Calcium Level 9.6 MG/DL Phosphorus Level 3.2 MG/DL Magnesium Level 2.1 MG/DL Total Bilirubin 0.9 MG/DL Aspartate Amino Transf 144 U/L (AST/SGOT) Alanine Aminotransferase 239 U/L (ALT/SGPT) Alkaline Phosphatase 337 U/L Total Protein 8.8 GM/DL Albumin 2.2 GM/DL Blood Gas Puncture Site RT RADIAL Blood Gas Patient Temperature 98.6 Blood Gas HCO3 25 mmol/L Blood Gas Base Excess 0.6 mmol/L Blood Gas Oxygen Saturation 97 % Arterial Blood pH 7.42 Arterial Blood Partial 38 mmHg Pressure CO2 Arterial Blood Partial 130 mmHg Pressure O2 Arterial Blood Oxygen Content 17.6 Vol % Arterial Blood 0.7 % Carboxyhemoglobin Arterial Blood Methemoglobin 0.9 % Blood Gas Hemoglobin 12.8 G/DL Oxygen Delivery Device VENTILATOR Blood Gas Ventilator Setting PRVC/AC Blood Gas Inspired Oxygen 40 % 09/19/16 09/19/16 09/20/16 15:00 23:00 07:00 Intake Total 588 ml 394 ml 328 ml Output Total 775 ml 350 ml 500 ml Balance -187 ml 44 ml -172 ml Intake IV Total 182 ml 294 ml 328 ml Tube Feeding 306 ml Tube Irrigant 100 ml Other 100 ml Output Urine Total 575 ml 350 ml 500 ml Stool Total 200 ml 0 ml Bladder Scan Volume Amount 484 ml 329 ml 484 ml Medical Decision Making Impression and Plan A: 40 y/o M with Large right cerebellar hemisphere spontaneous hemorrhage likely hypertensive with no underlying vascular abnormality noted. He is status post suboccipital craniectomy with intracranial hemorrhage evacuation and ventriculostomy placement. s/p ventriculostomy removal. P: Continue with blood pressure control Continue with neuro checks Continue with critical care. Edgar Wallace Sep 20, 2016 08:04
[2016-09-20] MEDS: PANTOPRAZOLE SODIUM 40 MG VIAL IV SCH ×2 (08:34→08:39)
[2016-09-20] MEDS: SODIUM CHLORIDE 0.9% FLUSH 10 ML FLUSH SCH ×2 (08:34→21:00)
[2016-09-20] MEDS: BISACODYL 10 MG SUPP RECTAL SCH (08:35)
[2016-09-20] MEDS: DOCUSATE SODIUM 50 MG/SENNA 8.6 MG TAB PO SCH ×2 (08:35→21:00)
[2016-09-20] MEDS: SODIUM CHLORIDE 0.9% FLUSH 10 ML FLUSH IV FLUSH SCH (08:35)
[2016-09-20] MEDS: amLODIPine BESYLATE 5 MG TAB PO SCH (08:39)
[2016-09-20] MEDS: HALOPERIDOL LACTATE 5 MG/ML AMP IV PUSH PRN (09:32)
--- NOTE | 2016-09-20 12:16 | HHI.CCPN ---
Subjective Remarks/Hospital Course Hospital Course: 40-year-old male with reportedly no significant past medical history who was at work today and was taking out the garbage when he developed "the worse headache of his life". He was screaming in pain and [facility] was called. Upon [facility] arrival his GCS was 13 but rapidly deteriorated to GCS 3. He vomited. He was intubated on the scene without any drugs. CT brain demonstrated a large right cerebellar hemorrhage (4.9 x 5.7 cm) with effacement of the fourth ventricle. He has a very poor neurologic exam with absence of pupillary, corneal, gag, cough, oculocephalic reflexes. Not overbreathing vent but did not formally test apnea. Dr. Ovalles discussed with and she is requesting operative management. He is being taken for emergent CT angiogram and then to OR for evacuation by Dr. Ovalles. Subjective: 09/02: decompressive craniectomy overnight. per report, when he returned from the OR he apparently had a +gag. this morning remains encephalopathic. 09/03: vomiting on sedation vacation yesterday. cardene off. icp's controlled: 9 this AM. still poor neurologic exam. 09/04: on goal TF. no additional vomiting. following commands RUE, RLE. tracking. EVD at 15 cmH2O. ICP controlled. 09/05: still weakly following commands. ICP slightly elevated at 16-17 today. sedation vacation patient gets agitated, tachycardic, hypertensive. sputum growing pansensitive enterobacter. 09/06: still weakly following commands. ICP high overnight for ~30 minutes, but then improved. EVD challenged to 20 cmH2O today. still tachycardic and hypertensive. 09/07: still follows. ICP better controlled. EVD at [address] stable. 09/08: Delayed follow. Agitated when sedation lowered. Vomited early; will place NG to suction. Reglan already on board. We'd like to get to trial extubation for 's sake. Failed SBT today - will try again at higher PS. 09/09 no evidence overnight, no more vomiting, discussed with for tracheostomy placement 09/10: Tracheostomy this morning, CXR fine. DHT in good position, advance 10 cm. 09/11: Comfortable with trach; site clean. Talked with parents at bedside. 09/12: Breathes spontaneously with good excursions. 09/13: Tolerated SBT for several hours yesterday but became agitated and ineffective. Continue weaning efforts. 09/14: Still very agitated with sedation vacation. failed SBT for agitation, tachycardia, distress. 09/15: Agitation slightly better today with addition of Precedex. plan for PEG tube today. sputum growing now resistant enterobacter, and secretions are more tenacious today. 09/16: s/p PEG placement today. Following on R upper and lower ext. Continue to have large amount of secretions 09/17: Clinically better less agitated on Precedex follows commands on right side. Still has large amount of secretions, white count improving after starting cefepime. We'll attempt T piece yesterday. Liver enzymes elevated. Check ultrasound of the liver and gallbladder 09/18: No acute events overnight. Gallbladder ultrasound with minimal sludge and some gallbladder wall thickening. Negative radiographic Villegas sign. Remains on Precedex, follwos commands on right upper and lower extremity. Failed CPAP yesterday 09/19 doing well on CPAP, we'll continue CPAP overnight if tolerated 09/20 slightly elevated LFTs, nuclear medicine for HIDA scan per ID recommendation Objective Vital Signs Date Time Temp Pulse Resp B/P Pulse Ox O2 Delivery O2 Flow Rate FiO2 09/20/16 11:42 98 40 09/20/16 06:00 92 09/20/16 04:00 99.4 16 127/82 09/19/16 22:00 Mechanical Ventilator Intake and Output 09/19/16 09/19/16 09/20/16 08:00 16:00 00:00 Intake Total 277 ml 588 ml 394 ml Output Total 580 ml 775 ml 350 ml Balance -303 ml -187 ml 44 ml Result Diagram: 09/19/16 0505 09/20/16 0400 Other Results Laboratory Tests Test 09/20/16 04:55 Blood Gas Puncture Site RT RADIAL Blood Gas Patient Temperature 98.6 Blood Gas HCO3 25 mmol/L (22-26) Blood Gas Base Excess 0.6 mmol/L (-2-2) Blood Gas Oxygen Saturation 97 % (90-100) Arterial Blood pH 7.42 (7.380-7.420) Arterial Blood Partial 38 mmHg (38-42) Pressure CO2 Arterial Blood Partial 130 mmHg Pressure O2 (61-120) Arterial Blood Oxygen Content 17.6 Vol % (12.0-20.0) Arterial Blood 0.7 % (0-4) Carboxyhemoglobin Arterial Blood Methemoglobin 0.9 % (0-2) Blood Gas Hemoglobin 12.8 G/DL (12.0-16.0) Oxygen Delivery Device VENTILATOR Blood Gas Ventilator Setting PRVC/AC Blood Gas Inspired Oxygen 40 % Objective Remarks GENERAL: male vented via trach SKIN: Warm and dry. HEAD: healing posterior wound EYES: No scleral icterus. ENT: No nasal bleeding or discharge. Mucous membranes pink and moist. NECK: Trachea midline, trach site clean, dry. CARDIOVASCULAR: . normal rate, regular rhythm. No JVD. RESPIRATORY:CPAP/PSV. equal chest rise. Large amount mobile secretions, these are thick and zamarripa. GASTROINTESTINAL: Abdomen soft, non-tender, nondistended No guarding. PEG in place : Kumar in place MSK: No obvious deformity. No edema. Well perfused, warm. NEUROLOGICAL: Pupils 2 mm, reactive. + cough, gag. Follows commands RUE, RLE. Remains flaccid on left. A/P Assessment and Plan Assessment: 40yM with large posterior fossa IPH now s/p decompressive posterior fossa craniectomy 09/01. encephalopathy slowly improving. still guarded prognosis given size and location of the bleed. goals are aggressive. palliative care following. Sputum growing resistant enterobacter, and wbc elevated with worsening fevers. NEURO: Acute right cerebellar hemorrhage (ICH Score 4) Agitated Delirium CT brain 09/01/16 - 4.9 x 5.3 cm right cerebellar hemorrhage with effacement of the fourth ventricle. CTA 09/01/16 - No vascular abnormality. s/p Suboccipital craniectomy, cerebellar hemorrhage evacuation, ventriculostomy by Dr. Ovalles 09/01/16, removed 09/11 Continue Keppra 500 mg IV every 12-DC today. (No reported sz) Maintain normothermia with Tylenol/cooling blanket prn temp >100.4. Target RASS 0, patient comfort Frequent neuro checks Zyprexa 10mg po q8h, Haldol 5mg iv q4h prn for agitation Oxycodone 10mg po q4h scheduled for pain or discomfort in attempt to wean from fentanyl. Precedex attempt wean to DC as tolerated RESP: Acute hypoxic and hypercarbic respiratory failure Aspiration Intubated at the scene by [facility] with no sedation, s/p Trach 09/10, PEG 09/16 DuoNeb q6 hours; Albuterol q2 hours prn wheezing Enterobacter, Klebsiella in sputum, now Enterobacter is resistant to Rocephin. DCd rocephin and started cefepime 2gm iv q8h 09/15/16 Doing well on CPAP trial today CV: Malignant Hypertension Sinus tachycardia Labetalol and hydralazine prn SBP <150. Lopressor 5mg iv q4h prn for HR > 90. Propranolol 20mg po q8h for tachycardia and agitation. Norvasc 5 daily GI: Vomiting- resolved. Elevated liver enzymes Zofran 4 mg IV q6 hours TF at goal. Bowel regimen. Liver ultrasound shows minimal sludge and some gallbladder wall thickening FEN/RENAL: Renal insufficiency, unknown baseline creatinine Hypokalemia ICU electrolyte protocol Kumar changed to [place] [employer] catheter Monitor I/O and creatinine ID: sputum growing Enterobacter, now resistant. Large amount of sputum production and e/o aspiration. s/p Unasyn for empiric aspiration coverage - s/p Rocephin 09/10 - 09/15, but now Enterobacter is resistant. started cefepime 2gm iv q8h 09/15 - ID consulted to assist with duration of abx therapy. HEME: Monitor CBC, post op CBC pending. Coags WNL. Patient was not on anticoagulant or antiplatelet therapy. ENDO: Acute stress hyperglycemia Monitor bedside glucose and initiate low-dose insulin sliding scale as indicated PROPH: SCDs and teds for DVT prophylaxis. Pharmacologic DVT prophylaxis is contraindicated due to acute cerebellar hemorrhage. Protonix 40 mg IV daily for stress ulcer prophylaxis. ACCESS: PICC line Critical Care: The total critical care time was 35 minutes. Time to perform other separately billable procedures was not included in the critical care time. Orestes Wang MD Sep 20, 2016 12:16
--- NOTE | 2016-09-20 12:49 | RADRPT ---
EXAM DATE/TIME: 09/20/2016 09:28 [facility] COMPARISON: No previous studies available for comparison. INDICATIONS : Elevated liver enzymes. DOSE: 4.4 mCi Tc99m Mebrofenin IV MEDICAL HISTORY : Hypertension. Intracranial hemmorrhage. Respiratory failure. SURGICAL HISTORY : None. ENCOUNTER: Initial ACUITY: 1 day PAIN SCALE: 0/10 LOCATION: Right upper quadrant TECHNIQUE: Following the intravenous administration of radiotracer, dynamic sequential images were performed wit h continuous acquisition. FINDINGS: HEPATIC KINETICS: There is prompt uptake of radiotracer in the liver. No focal defects are seen. There is normal rate of washout from the hepatic parenchyma. BILIARY CLEARANCE: Activity is first seen in the extrahepatic biliary system at 12 minutes. There is normal excretion i nto the small bowel. GALLBLADDER: Activity is first seen in the gallbladder at 55 minutes. Common bile duct kinetics are normal and th ere is no evidence of biliary obstruction. BILIARY ENTRIC REFLUX: None observed. CONCLUSION: Delayed filling of what appears to be a contracted gallbladder suggesting the possibility of gallblad demian dysfunction but no acute cholecystitis or cystic/common bile duct obstruction. Al Wong MD on September 20, 2016 at 12:42 Board Certified Radiologist. This report was verified electronically.
--- NOTE | 2016-09-20 14:30 | HHI.IDPN ---
Note Infectious Disease Note ID COVERAGE: Patient on T- piece. Comfortable. Shakes head to questions. Still with low grade fever. HIDA scan noted. No acute cholecystitis or obstruction. WBC still elevated. No diarrhea today per RN. Stool c. dif negative. Antibiotics cefepime Flagyl. Tobra nebs Allergies: Coded Allergies: No Known Allergies (Unverified , 09/09/16) Objective . Vital Signs Date Time Temp Pulse Resp B/P Pulse Ox O2 Delivery O2 Flow Rate FiO2 09/20/16 12:44 98 T-piece 6.00 40 09/20/16 12:23 100 40 09/20/16 11:42 98 40 09/20/16 11:42 40 09/20/16 09:18 100 09/20/16 08:10 100 40 09/20/16 07:29 100 40 09/20/16 07:00 100 Mechanical Ventilator 40 09/20/16 06:00 92 09/20/16 04:04 100 40 09/20/16 04:00 99.4 91 16 127/82 100 09/20/16 04:00 91 09/20/16 04:00 40 09/20/16 02:00 87 09/20/16 01:08 98 40 09/20/16 00:00 40 09/20/16 00:00 99.4 92 16 125/81 99 09/20/16 00:00 92 09/19/16 22:00 98 Mechanical Ventilator 40 09/19/16 22:00 104 09/19/16 20:00 40 09/19/16 20:00 100.4 104 16 136/95 98 09/19/16 20:00 103 09/19/16 19:45 98 40 09/19/16 18:00 99 09/19/16 16:00 92 09/19/16 16:00 100.0 92 20 150/91 98 09/19/16 16:00 40 09/19/16 15:32 98 40 09/19/16 15:30 40 09/19/16 09/19/16 09/20/16 15:00 23:00 07:00 Intake Total 588 ml 394 ml 328 ml Output Total 775 ml 350 ml 500 ml Balance -187 ml 44 ml -172 ml Intake IV Total 182 ml 294 ml 328 ml Tube Feeding 306 ml Tube Irrigant 100 ml Other 100 ml Output Urine Total 575 ml 350 ml 500 ml Stool Total 200 ml 0 ml Bladder Scan Volume Amount 484 ml 329 ml 484 ml Laboratory Tests Test 09/19/16 05:05 White Blood Count 14.5 TH/MM3 Red Blood Count 4.37 MIL/MM3 Hemoglobin 12.1 GM/DL Hematocrit 35.8 % Mean Corpuscular Volume 81.9 FL Mean Corpuscular Hemoglobin 27.8 PG Mean Corpuscular Hemoglobin 34.0 % Concent Red Cell Distribution Width 14.3 % Platelet Count 661 TH/MM3 Mean Platelet Volume 7.7 FL Neutrophils (%) (Auto) 61.2 % Lymphocytes (%) (Auto) 14.7 % Monocytes (%) (Auto) 21.0 % Eosinophils (%) (Auto) 2.4 % Basophils (%) (Auto) 0.7 % Neutrophils # (Auto) 8.9 TH/MM3 Lymphocytes # (Auto) 2.1 TH/MM3 Monocytes # (Auto) 3.0 TH/MM3 Eosinophils # (Auto) 0.3 TH/MM3 Basophils # (Auto) 0.1 TH/MM3 CBC Comment AUTO DIFF Differential Total Cells 100 Counted Neutrophils % (Manual) 52 % Band Neutrophils % 11 % Lymphocytes % 20 % Monocytes % 16 % Neutrophils # (Manual) 9.3 TH/MM3 Myelocytes 1 % Differential Comment FINAL DIFF MANUAL Platelet Estimate HIGH Platelet Morphology Comment NORMAL Laboratory Tests Test 09/19/16 09/20/16 05:05 04:00 Sodium Level 139 MEQ/L 139 MEQ/L Potassium Level 3.6 MEQ/L 3.6 MEQ/L Chloride Level 102 MEQ/L 104 MEQ/L Carbon Dioxide Level 27.2 MEQ/L 26.1 MEQ/L Anion Gap 10 MEQ/L 9 MEQ/L Blood Urea Nitrogen 23 MG/DL 22 MG/DL Creatinine 1.16 MG/DL 1.01 MG/DL Estimat Glomerular Filtration 85 ML/MIN 100 ML/MIN Rate Random Glucose 113 MG/DL 97 MG/DL Calcium Level 9.5 MG/DL 9.6 MG/DL Magnesium Level 2.1 MG/DL 2.1 MG/DL Total Bilirubin 0.9 MG/DL 0.9 MG/DL Aspartate Amino Transf 207 U/L 144 U/L (AST/SGOT) Alanine Aminotransferase 283 U/L 239 U/L (ALT/SGPT) Alkaline Phosphatase 360 U/L 337 U/L Total Protein 8.7 GM/DL 8.8 GM/DL Albumin 2.2 GM/DL 2.2 GM/DL Phosphorus Level 3.2 MG/DL Microbiology Date/Time Procedure Status Source Growth 09/19/16 15:00 Gram Stain - Final Resulted Sputum Endotracheal 09/19/16 15:00 Sputum Culture - Preliminary Resulted Sputum Endotracheal NO GROWTH IN 24 HOURS. Imaging Hepatobiliary Scan Nuclear Medicine 09/20/16 0000 Signed Impressions: Service Date/Time: Tuesday, September 20, 2016 09:28 - CONCLUSION: Delayed filling of what appears to be a contracted gallbladder suggesting the possibility of gallbladder dysfunction but no acute cholecystitis or cystic/common bile duct obstruction. Al Wong MD Liver Ultrasound 09/18/16 0000 Signed Impressions: Service Date/Time: Sunday, September 18, 2016 08:42 - CONCLUSION: Minimal sludge in the gallbladder with gallbladder wall thickening. The patient does not appear to be tender over the gallbladder. Champ Pascal MD FACR Chest X-Ray 09/17/16 06 Signed Impressions: Service Date/Time: September 04:47 - CONCLUSION: Bibasilar infiltrates right greater left. A tracheostomy tube in good position. PICC line in good position. Keith Malave MD Gastrostomy Tube Placement 09/16/16 0000 Signed Impressions: Service Date/Time: Friday, September 16, 2016 11:10 - CONCLUSION: Uncomplicated gastrostomy tube placement as above. Shady Shelby MD Abdomen X-Ray 09/10/16 0000 Signed Impressions: Service Date/Time: September 06:34 - CONCLUSION: Feeding tube tip in the stomach Al Hernandez MD Head CT [id number]/07/[id number] Signed Impressions: Service Date/Time: Wednesday, September 07, 2016 06:05 - CONCLUSION: Stable brain appearance. Al Hernandez MD Neck CTA 09/01/162019 Signed Impressions: Service Date/Time: Thursday, September 01, 2016 20:55 - CONCLUSION: Unremarkable exam. The carotid arteries are intact. Ag Saxena MD Head CTA 09/01/162019 Signed Impressions: Service Date/Time: Thursday, September 01, 2016 20:55 - CONCLUSION: The etiology of the patient's right cerebellar h hemorrhage is not identified and there appears to be some infiltrates and possible pleural effusions in the upper lungs that are visualized. Erika Bob MD Physical Exam GENERAL: NAD. Responsive. SKIN: Warm and dry. HEAD: healing posterior wound with no e.o infection. HEENT: No scleral icterus. NECK: Trachea midline, trach site clean, dry. CARDIOVASCULAR: normal S1s2, No murmurs. RESPIRATORY: Slight base rhonchi. . GASTROINTESTINAL: Soft, non tender. : Kumar in place EXT: No CCE. Assessment & Plan Remarks Assessment and Plan Enterobacter aerogenes Pneumonia (resistant to Rocephin, cefepime S, Tobra S) Respiratory failure s.p Trach Large right cerebellar hemorrhage 4.9 x 5.7 cm with effacement of the fourth ventricle. H/o Ventric during this admission. Low grade fever and worsening leukocytosis Elevated LFTs. Recs: Continue Cefepime IV for now Continue Flagyl Cont Tobramycin nebulizations monitor fevers, WBC Gerardo Batista MD Sep 20, 2016 14:30
[2016-09-20 20:23] LABS: HEMATOCRIT 37.5 % (39.0-51.0); MEAN CELL VOLUME 81.9 FL (80.0-100.0); MEAN CORPUSCULAR HEMOGLOBIN 27.5 PG (27.0-34.0); MEAN CORPUSCULAR HGB CONC 33.6 % (32.0-36.0); PLATELET COUNT 658 TH/MM3 (150-450); RED BLOOD COUNT 4.58 MIL/MM3 (4.50-5.90); RED CELL DISTRIBUTION WIDTH 14.8 % (11.6-17.2); WHITE BLOOD COUNT 12.5 TH/MM3 (4.0-11.0)
[2016-09-20 20:30] LABS: HEMO FLAGS AUTO DIFF
[2016-09-20 20:52] LABS: BANDS 1 % (0-6); EOSINOPHILS 2 % (0-4); NEUTROPHIL # MANUAL DIFF 9.1 TH/MM3 (1.8-7.7); PLATELET ESTIMATE SMEAR HIGH (NORMAL); PLATELET MORPHOLOGY HYPOGRAN (NORMAL); POLYS (SEG NEUTROPHILS) 72 % (16-70); SCAN/DIFF FINAL DIFF MANUAL; WBC DIFF SAMPLE 100
[2016-09-21] VITALS (17 sets, daily range): BP systolic 111–156; BP diastolic 63–90; PULSE 82–112; RESP 16–26; TEMP 98.8–99.6; O2SAT 97–100
[2016-09-21] MEDS: oxyCODONE HCL ORAL CONC 20 MG/ML SYRINGE PO SCH ×6 (01:59→21:55)
[2016-09-21] MEDS: CEFEPIME INJ 2,000 MG in SODIUM CHLORIDE 0.9% INJ 100 ML IV SCH ×3 (02:00→17:42)
[2016-09-21] MEDS: CHLORHEXIDINE GLUCONATE 2 % 1 PACK (2 CLOTHS) TOP SCH (04:00)
[2016-09-21 04:23] LABS: AUTOMATED NEUTROPHIL # 7.2 TH/MM3 (1.8-7.7); BASOPHIL % 0.3 % (0.0-2.0); EOSINOPHIL # 0.4 TH/MM3 (0-0.4); EOSINOPHIL % 3.4 % (0.0-4.0); HEMATOCRIT 36.2 % (39.0-51.0); HEMO FLAGS DIFF FINAL; LYMPH % 16.9 % (9.0-44.0); LYMPHOCYTE # 1.9 TH/MM3 (1.0-4.8); MEAN CELL VOLUME 82.1 FL (80.0-100.0); MEAN CORPUSCULAR HEMOGLOBIN 27.7 PG (27.0-34.0); MEAN CORPUSCULAR HGB CONC 33.7 % (32.0-36.0); MONO % 15.8 % (0.0-8.0); NEUT % 63.6 % (16.0-70.0); PLATELET COUNT 578 TH/MM3 (150-450); RED CELL DISTRIBUTION WIDTH 14.4 % (11.6-17.2); WHITE BLOOD COUNT 11.3 TH/MM3 (4.0-11.0)
[2016-09-21] MEDS: OLANZapine ODT 10 MG TAB PO SCH ×3 (04:34→19:30)
[2016-09-21] MEDS: PROPRANOLOL HCL 20 MG TAB PO SCH ×3 (04:34→21:55)
[2016-09-21 04:46] LABS: ALT (GPT) 217 U/L (12-78); ANION GAP 11 MEQ/L (5-15); AST (GOT) 133 U/L (15-37); BICARBONATE 26.3 MEQ/L (21.0-32.0); BLOOD UREA NITROGEN 24 MG/DL (7-18); CHLORIDE 104 MEQ/L (98-107); GLOMERULAR FILTRATION RATE 89 ML/MIN (>89); POTASSIUM 3.8 MEQ/L (3.5-5.1); SODIUM (NA) 141 MEQ/L (136-145)
[2016-09-21 04:48] LABS: ALKALINE PHOSPHATASE 325 U/L (45-117); TOTAL BILIRUBIN ADULT 0.8 MG/DL (0.2-1.0)
[2016-09-21] MEDS: HYDROmorphone HCL PF 1 MG/ML VIAL IV PUSH PRN ×4 (04:58→23:53)
[2016-09-21] MEDS: METOCLOPRAMIDE HCL SYRUP 10 MG/10 ML UDC PO SCH ×4 (05:32→19:30)
[2016-09-21] MEDS: RESP: TOBRAMYCIN SULFATE 300 MG/5 ML NEB NEB SCH ×2 (07:38→20:41)
[2016-09-21] MEDS: metroNIDAZOLE 500 MG INJ 100 ML IV SCH (07:50)
[2016-09-21] MEDS: CHLORHEXIDINE 0.12% (ORAL KIT) 15 ML CUP MT SCH ×2 (07:50→19:30)
[2016-09-21] MEDS: DOCUSATE SODIUM 50 MG/SENNA 8.6 MG TAB PO SCH ×2 (09:00→19:30)
[2016-09-21] MEDS: BISACODYL 10 MG SUPP RECTAL SCH (09:00)
[2016-09-21] MEDS: SODIUM CHLORIDE 0.9% FLUSH 10 ML FLUSH IV FLUSH SCH (09:00)
[2016-09-21] MEDS: PANTOPRAZOLE SODIUM 40 MG VIAL IV SCH (09:11)
[2016-09-21] MEDS: amLODIPine BESYLATE 5 MG TAB PO SCH (09:11)
[2016-09-21] MEDS: SODIUM CHLORIDE 0.9% FLUSH 10 ML FLUSH SCH ×2 (09:11→19:30)
--- NOTE | 2016-09-21 12:33 | HHI.CCPN ---
Subjective Remarks/Hospital Course Hospital Course: 40-year-old male with reportedly no significant past medical history who was at work today and was taking out the garbage when he developed "the worse headache of his life". He was screaming in pain and [facility] was called. Upon [facility] arrival his GCS was 13 but rapidly deteriorated to GCS 3. He vomited. He was intubated on the scene without any drugs. CT brain demonstrated a large right cerebellar hemorrhage (4.9 x 5.7 cm) with effacement of the fourth ventricle. He has a very poor neurologic exam with absence of pupillary, corneal, gag, cough, oculocephalic reflexes. Not overbreathing vent but did not formally test apnea. Dr. Ovalles discussed with and she is requesting operative management. He is being taken for emergent CT angiogram and then to OR for evacuation by Dr. Ovalles. Subjective: 09/02: decompressive craniectomy overnight. per report, when he returned from the OR he apparently had a +gag. this morning remains encephalopathic. 09/03: vomiting on sedation vacation yesterday. cardene off. icp's controlled: 9 this AM. still poor neurologic exam. 09/04: on goal TF. no additional vomiting. following commands RUE, RLE. tracking. EVD at 15 cmH2O. ICP controlled. 09/05: still weakly following commands. ICP slightly elevated at 16-17 today. sedation vacation patient gets agitated, tachycardic, hypertensive. sputum growing pansensitive enterobacter. 09/06: still weakly following commands. ICP high overnight for ~30 minutes, but then improved. EVD challenged to 20 cmH2O today. still tachycardic and hypertensive. 09/07: still follows. ICP better controlled. EVD at [address] stable. 09/08: Delayed follow. Agitated when sedation lowered. Vomited early; will place NG to suction. Reglan already on board. We'd like to get to trial extubation for 's sake. Failed SBT today - will try again at higher PS. 09/09 no evidence overnight, no more vomiting, discussed with for tracheostomy placement 09/10: Tracheostomy this morning, CXR fine. DHT in good position, advance 10 cm. 09/11: Comfortable with trach; site clean. Talked with parents at bedside. 09/12: Breathes spontaneously with good excursions. 09/13: Tolerated SBT for several hours yesterday but became agitated and ineffective. Continue weaning efforts. 09/14: Still very agitated with sedation vacation. failed SBT for agitation, tachycardia, distress. 09/15: Agitation slightly better today with addition of Precedex. plan for PEG tube today. sputum growing now resistant enterobacter, and secretions are more tenacious today. 09/16: s/p PEG placement today. Following on R upper and lower ext. Continue to have large amount of secretions 09/17: Clinically better less agitated on Precedex follows commands on right side. Still has large amount of secretions, white count improving after starting cefepime. We'll attempt T piece yesterday. Liver enzymes elevated. Check ultrasound of the liver and gallbladder 09/18: No acute events overnight. Gallbladder ultrasound with minimal sludge and some gallbladder wall thickening. Negative radiographic Villegas sign. Remains on Precedex, follows commands on right upper and lower extremity. Failed CPAP yesterday 09/19 doing well on CPAP, we'll continue CPAP overnight if tolerated 09/20 slightly elevated LFTs, nuclear medicine for HIDA scan per ID recommendation 09/21 HIDA does not show evidence of acute cholecystitis. Neuro improving, follows commands and normal strength on right, weakly follows on LUE. Tolerating TP. Objective Vital Signs Date Time Temp Pulse Resp B/P Pulse Ox O2 Delivery O2 Flow Rate FiO2 09/21/16 10:03 22 09/21/16 10:00 108 09/21/16 08:00 40 09/21/16 08:00 98 T-piece 6.00 09/21/16 08:00 99.1 133/90 Intake and Output 09/20/16 09/20/16 09/21/16 08:00 16:00 00:00 Intake Total 328 ml 314 ml 953 ml Output Total 500 ml 500 ml 400 ml Balance -172 ml -186 ml 553 ml Result Diagram: 09/21/16 0358 09/21/16 0358 Objective Remarks GENERAL: male TP via trach SKIN: Warm and dry. HEAD: healing posterior wound EYES: No scleral icterus. ENT: No nasal bleeding or discharge. Mucous membranes pink and moist. NECK: Trachea midline, trach site clean, dry. CARDIOVASCULAR: Normal rate, regular rhythm. No JVD. RESPIRATORY: On TP. equal chest rise. Large amount mobile secretions, these are thick and zamarripa. GASTROINTESTINAL: Abdomen soft, non-tender, nondistended No guarding. PEG in place : Kumar in place MSK: No obvious deformity. No edema. Well perfused, warm. NEUROLOGICAL: Pupils 2 mm, reactive. + cough, gag. Follows commands RUE, RLE. weakly follows on LUE A/P Assessment and Plan Assessment: 40yM with large posterior fossa IPH now s/p decompressive posterior fossa craniectomy 09/01. encephalopathy slowly improving. Goals are aggressive. palliative care following. Sputum growing resistant Enterobacter NEURO: Acute right cerebellar hemorrhage (ICH Score 4) Agitated Delirium CT brain 09/01/16 - 4.9 x 5.3 cm right cerebellar hemorrhage with effacement of the fourth ventricle. CTA 09/01/16 - No vascular abnormality. s/p Suboccipital craniectomy, cerebellar hemorrhage evacuation, ventriculostomy by Dr. Ovalles 09/01/16, EVD removed 09/11 Callira DCd 09/18. (No reported sz) Maintain normothermia with Tylenol/cooling blanket prn temp >100.4. Frequent neuro checks Zyprexa 10mg po q8h, Haldol 5mg iv q4h prn for agitation Oxycodone 10mg po q4h scheduled for pain or discomfort in attempt to wean from fentanyl. RESP: Acute hypoxic and hypercarbic respiratory failure Aspiration Intubated at the scene by [facility] with no sedation, s/p Trach 09/10, PEG 09/16 DuoNeb q6 hours; Albuterol q2 hours prn wheezing Enterobacter, Klebsiella in sputum, now Enterobacter is resistant to Rocephin. DCd rocephin and started cefepime 2gm iv q8h 09/15/16 Doing well on TP CV: Malignant Hypertension Sinus tachycardia Labetalol and hydralazine prn SBP <150. Lopressor 5mg iv q4h prn for HR > 90. Propranolol 20mg po q8h for tachycardia and agitation. Norvasc 5 daily GI: Vomiting- resolved. Elevated liver enzymes Zofran 4 mg IV q6 hours TF at goal. Bowel regimen. Liver ultrasound shows minimal sludge and some gallbladder wall thickening HIDA negative for acute cholecystitis FEN/RENAL: Renal insufficiency, unknown baseline creatinine Hypokalemia ICU electrolyte protocol Stacy changed to condom catheter Monitor I/O and creatinine ID: Sputum growing Enterobacter, now resistant. Large amount of sputum production and e/o aspiration. s/p Unasyn for empiric aspiration coverage s/p Rocephin 09/10 - 09/15, but now Enterobacter is resistant. started cefepime 2gm iv q8h 09/15 ID consulted to assist with duration of abx therapy. HEME: Monitor CBC, post op CBC pending. Coags WNL. Patient was not on anticoagulant or antiplatelet therapy. ENDO: Acute stress hyperglycemia Monitor bedside glucose and initiate low-dose insulin sliding scale as indicated PROPH: SCDs and teds for DVT prophylaxis. Start Lovenox 40 mg sq daily 09/21/16. Protonix 40 mg IV daily for stress ulcer prophylaxis. ACCESS: PICC line Critical Care: The total critical care time was 35 minutes. Time to perform other separately billable procedures was not included in the critical care time. Michael Melendez MD Sep 21, 2016 12:33
[2016-09-21] MEDS: ENOXAPARIN SODIUM 40 MG/0.4 ML SYRINGE SQ SCH (13:11)
--- NOTE | 2016-09-21 14:23 | HHI.IDPN ---
Subjective Subjective Remarks ID Xcover for Dr Shan gan RN no emesis no diarrhea HIDA negative for cholecystitis C.diff negative tolerating Tpiece sputum negative WBC going down Antibiotics cefepime+ tobra nebs Allergies: Coded Allergies: No Known Allergies (Unverified , 09/09/16) Objective . Vital Signs Date Time Temp Pulse Resp B/P Pulse Ox O2 Delivery O2 Flow Rate FiO2 09/21/16 12:40 23 09/21/16 10:03 22 09/21/16 10:00 108 09/21/16 08:00 40 09/21/16 08:00 95 09/21/16 08:00 98 T-piece 6.00 40 09/21/16 08:00 40 09/21/16 08:00 99.1 84 18 133/90 100 09/21/16 07:38 100 40 09/21/16 07:00 100 Mechanical Ventilator 40 09/21/16 06:00 82 09/21/16 04:00 40 09/21/16 04:00 87 09/21/16 04:00 98.8 100 22 156/89 100 09/21/16 03:42 97 40 09/21/16 02:00 95 09/21/16 00:03 100 40 09/21/16 00:00 40 09/21/16 00:00 98 09/21/16 00:00 99.4 98 16 111/63 99 09/20/16 22:00 103 09/20/16 21:30 40 09/20/16 21:30 98 Mechanical Ventilator 40 09/20/16 20:20 100 40 09/20/16 20:00 99.4 98 15 151/93 98 09/20/16 20:00 98 09/20/16 20:00 40 09/20/16 20:00 98 Mechanical Ventilator 40 09/20/16 18:00 40 09/20/16 17:05 98 40 09/20/16 16:00 98.7 109 20 145/86 97 09/20/16 09/20/16 09/21/16 15:00 23:00 07:00 Intake Total 314 ml 953 ml 506 ml Output Total 500 ml 400 ml 450 ml Balance -186 ml 553 ml 56 ml Intake IV Total 314 ml 337 ml 406 ml Tube Feeding 516 ml Tube Irrigant 100 ml 100 ml Output Urine Total 500 ml 400 ml 450 ml Stool Total 0 ml 0 ml 0 ml . Laboratory Tests Test 09/20/16 09/21/16 19:00 03:58 White Blood Count 12.5 TH/MM3 11.3 TH/MM3 Red Blood Count 4.58 MIL/MM3 4.40 MIL/MM3 Hemoglobin 12.6 GM/DL 12.2 GM/DL Hematocrit 37.5 % 36.2 % Mean Corpuscular Volume 81.9 FL 82.1 FL Mean Corpuscular Hemoglobin 27.5 PG 27.7 PG Mean Corpuscular Hemoglobin 33.6 % 33.7 % Concent Red Cell Distribution Width 14.8 % 14.4 % Platelet Count 658 TH/MM3 578 TH/MM3 Mean Platelet Volume 8.1 FL 7.8 FL Neutrophils (%) (Auto) % 63.6 % Lymphocytes (%) (Auto) % 16.9 % Monocytes (%) (Auto) % 15.8 % Eosinophils (%) (Auto) % 3.4 % Basophils (%) (Auto) % 0.3 % Neutrophils # (Auto) TH/MM3 7.2 TH/MM3 Lymphocytes # (Auto) TH/MM3 1.9 TH/MM3 Monocytes # (Auto) TH/MM3 1.8 TH/MM3 Eosinophils # (Auto) TH/MM3 0.4 TH/MM3 Basophils # (Auto) TH/MM3 0.0 TH/MM3 CBC Comment AUTO DIFF DIFF FINAL Differential Total Cells 100 Counted Neutrophils % (Manual) 72 % Band Neutrophils % 1 % Lymphocytes % 12 % Monocytes % 13 % Eosinophils % 2 % Neutrophils # (Manual) 9.1 TH/MM3 Differential Comment FINAL DIFF MANUAL Platelet Estimate HIGH Platelet Morphology Comment HYPOGRAN Red Cell Morphology Comment NORMAL Laboratory Tests Test 09/20/16 09/21/16 04:00 03:58 Sodium Level 139 MEQ/L 141 MEQ/L Potassium Level 3.6 MEQ/L 3.8 MEQ/L Chloride Level 104 MEQ/L 104 MEQ/L Carbon Dioxide Level 26.1 MEQ/L 26.3 MEQ/L Anion Gap 9 MEQ/L 11 MEQ/L Blood Urea Nitrogen 22 MG/DL 24 MG/DL Creatinine 1.01 MG/DL 1.12 MG/DL Estimat Glomerular Filtration 100 ML/MIN 89 ML/MIN Rate Random Glucose 97 MG/DL 105 MG/DL Calcium Level 9.6 MG/DL 9.4 MG/DL Phosphorus Level 3.2 MG/DL 2.9 MG/DL Magnesium Level 2.1 MG/DL 2.0 MG/DL Total Bilirubin 0.9 MG/DL 0.8 MG/DL Aspartate Amino Transf 144 U/L 133 U/L (AST/SGOT) Alanine Aminotransferase 239 U/L 217 U/L (ALT/SGPT) Alkaline Phosphatase 337 U/L 325 U/L Total Protein 8.8 GM/DL 8.8 GM/DL Albumin 2.2 GM/DL 2.3 GM/DL Microbiology Date/Time Procedure Status Source Growth 09/19/16 15:00 Gram Stain - Final Complete Sputum Endotracheal 09/19/16 15:00 Sputum Culture - Final Complete Sputum Endotracheal NO GROWTH IN 48 HOURS. Imaging Last Impressions Hepatobiliary Scan Nuclear Medicine 09/20/16 0000 Signed Impressions: Service Date/Time: Tuesday, September 20, 2016 09:28 - CONCLUSION: Delayed filling of what appears to be a contracted gallbladder suggesting the possibility of gallbladder dysfunction but no acute cholecystitis or cystic/common bile duct obstruction. Al Wong MD Liver Ultrasound 09/18/16 0000 Signed Impressions: Service Date/Time: Sunday, September 18, 2016 08:42 - CONCLUSION: Minimal sludge in the gallbladder with gallbladder wall thickening. The patient does not appear to be tender over the gallbladder. Champ Pascal MD FACR Chest X-Ray 09/17/16 06 Signed Impressions: Service Date/Time: September 04:47 - CONCLUSION: Bibasilar infiltrates right greater left. A tracheostomy tube in good position. PICC line in good position. Keith Malave MD Gastrostomy Tube Placement 09/16/16 0000 Signed Impressions: Service Date/Time: Friday, September 16, 2016 11:10 - CONCLUSION: Uncomplicated gastrostomy tube placement as above. Shady Shelby MD Abdomen X-Ray 09/10/16 0000 Signed Impressions: Service Date/Time: September 06:34 - CONCLUSION: Feeding tube tip in the stomach Al Hernandez MD Head CT 09/07/16 0600 Signed Impressions: Service Date/Time: Wednesday, September 07, 2016 06:05 - CONCLUSION: Stable brain appearance. Al Hernandez MD Neck CTA 09/01/162019 Signed Impressions: Service Date/Time: Thursday, September 01, 2016 20:55 - CONCLUSION: Unremarkable exam. The carotid arteries are intact. Ag Saxena MD Head CTA 09/01/162019 Signed Impressions: Service Date/Time: Thursday, September 01, 2016 20:55 - CONCLUSION: The etiology of the patient's right cerebellar h hemorrhage is not identified and there appears to be some infiltrates and possible pleural effusions in the upper lungs that are visualized. Erika Bob MD Physical Exam GENERAL: NAD awake, onTpiece calm, sedative SKIN: Warm and dry. HEAD: healing posterior wound with no e.o infection. EYES: No scleral icterus. ENT: No nasal bleeding or discharge. Mucous membranes pink and moist. NECK: Trachea midline, trach site clean, dry. CARDIOVASCULAR: normal rate, regular rhythm. No JVD. RESPIRATORY: Clear to auscultation GASTROINTESTINAL: Abdomen soft, not distended No reation to palpation No guarding. : Joy in place with clear yellow urine (was retaining after joy dc'd) MSK: No obvious deformity. No edema. Well perfused, warm. NEUROLOGICAL: Pupils 2 mm, reactive. 5/5 to command RUE, RLE. Remains flaccid on left. RN reports minimla movements in LUE (1-2/5) and LLE (1/5) tryinig to mouth words points letter Psych: calm , cooperative Assessment & Plan Remarks Assessment and Plan Enterobacter aerogenes Pneumonia (resistant to Rocephin, cefepime S, Tobra S) Respiratory failure s.p Trach Large right cerebellar hemorrhage 4.9 x 5.7 cm with effacement of the fourth ventricle. H/o Ventric during this admission. Low grade fever and worsening leukocytosis ? calculous cholecystitis (fever, leukocytosis, US findings cw choilecystitis, increasing LFTs) Recs: complete 7 days of Cefepime IV dc flagyl cont Tobramycin nebulizations dw Paola Valdes MD Sep 21, 2016 14:23
[2016-09-22] VITALS (13 sets, daily range): BP systolic 113–146; BP diastolic 75–88; PULSE 96–114; RESP 13–32; TEMP 99–99.7; O2SAT 95–100
[2016-09-22] MEDS: oxyCODONE HCL ORAL CONC 20 MG/ML SYRINGE PO SCH ×6 (02:59→22:46)
[2016-09-22] MEDS: OLANZapine ODT 10 MG TAB PO SCH ×3 (02:59→20:58)
[2016-09-22] MEDS: CEFEPIME INJ 2,000 MG in SODIUM CHLORIDE 0.9% INJ 100 ML IV SCH ×3 (03:00→18:04)
[2016-09-22] MEDS: CHLORHEXIDINE GLUCONATE 2 % 1 PACK (2 CLOTHS) TOP SCH (04:00)
[2016-09-22] MEDS: HYDROmorphone HCL PF 1 MG/ML VIAL IV PUSH PRN ×2 (04:14→13:08)
[2016-09-22] MEDS: PROPRANOLOL HCL 20 MG TAB PO SCH ×3 (05:29→21:04)
[2016-09-22] MEDS: METOCLOPRAMIDE HCL SYRUP 10 MG/10 ML UDC PO SCH ×4 (05:29→20:58)
[2016-09-22] MEDS: CHLORHEXIDINE 0.12% (ORAL KIT) 15 ML CUP MT SCH ×2 (08:31→20:58)
[2016-09-22] MEDS: RESP: ALBUTEROL 2.5 MG/3 ML NEB (PRN) INH (08:56)
[2016-09-22] MEDS: SODIUM CHLORIDE 0.9% FLUSH 10 ML FLUSH SCH ×2 (09:00→20:58)
[2016-09-22] MEDS: PANTOPRAZOLE SODIUM 40 MG VIAL IV SCH (09:01)
[2016-09-22] MEDS: amLODIPine BESYLATE 5 MG TAB PO SCH (09:01)
[2016-09-22] MEDS: BISACODYL 10 MG SUPP RECTAL SCH ×2 (09:01→12:38)
[2016-09-22] MEDS: SODIUM CHLORIDE 0.9% FLUSH 10 ML FLUSH IV FLUSH SCH (09:02)
[2016-09-22] MEDS: RESP: TOBRAMYCIN SULFATE 300 MG/5 ML NEB NEB SCH ×2 (09:10→20:04)
[2016-09-22] MEDS: DOCUSATE SODIUM 50 MG/SENNA 8.6 MG TAB PO SCH ×2 (09:10→20:59)
--- NOTE | 2016-09-22 11:00 | HHI.HCSW ---
Police Service Technician Visit Cognitive Functioning On t-piece. Awake. Appears comfortable in no apparent distress. Nurse in to provide care. Notes indicate further improvement. confirms. . Significant Family/Friend Met with , Jaci, at patient's bedside. Jaci denies any medical questions or concerns. She verbalizes continued hope for improvement. Offered emotional support. Wishes to speak with case management regarding placement, abbe bed. item repair manager informed and will visit today. . Pertinent Social History Per Jaci, Mr. Isabel is very well known in the community with a good support network. He enjoys singing and being social. There is a daughter, Myriam Isabel. . Quality of Life Values/Goals Singing is a major part of Mr. Isabel's life. concerned of effects trach could have on his vocal cords. Provided emotional support. . [facility] chaplains following. Rotary Veneer Machine Operator in to visit upon my exit. . Advance Directive No written advanced directives. Per [place] Statutes medical proxy decision making falls to patient's . . Follow Up Visit Will continue to follow throughout hospitalization to provide emotional and social support. Valeria Maddox, GRANITE WORKER Sep 22, 2016 11:00
--- NOTE | 2016-09-22 11:18 | PD.TRANSFR ---
Transfer Summary Admission Date September 01, 2016 at 21:05 Admitting Diagnosis Acute right cerebellar hemorrhage Diagnoses: (1) Cerebellar hemorrhage, acute Diagnosis: Principal (2) Left hemiparesis Diagnosis: Principal (3) Malignant hypertension Diagnosis: Principal (4) Acute respiratory failure Diagnosis: Principal (5) HCAP (healthcare-associated pneumonia) Diagnosis: Principal Transfer Summary/Subjective 40-year-old male with reportedly no significant past medical history who was at work today and was taking out the garbage when he developed "the worse headache of his life". He was screaming in pain and [facility] was called. Upon [facility] arrival his GCS was 13 but rapidly deteriorated to GCS 3. He vomited. He was intubated on the scene without any drugs. CT brain demonstrated a large right cerebellar hemorrhage (4.9 x 5.7 cm) with effacement of the fourth ventricle. He has a very poor neurologic exam with absence of pupillary, corneal, gag, cough, oculocephalic reflexes. Not overbreathing vent but did not formally test apnea. Dr. Ovalles discussed with and she is requesting operative management. He is being taken for emergent CT angiogram and then to OR for evacuation by Dr. Ovalles. Subjective: 09/02: s/p decompressive craniectomy overnight. per report, when he returned from the OR he apparently had a +gag. 09/03: vomiting on sedation vacation yesterday. Cardene off. icp's controlled: 9 this AM. still poor neurologic exam. 09/04: on goal TF. no additional vomiting. following commands PEG DOOLEY. tracking. EVD at 15 cmH2O. ICP controlled. 09/05: Weakly following commands. ICP slightly elevated at 16-17 today. sedation vacation patient gets agitated, tachycardic, hypertensive. sputum growing pansensitive enterobacter. 09/06: still weakly following commands. ICP high overnight for ~30 minutes, but then improved. EVD challenged to 20 cmH2O today. still tachycardic and hypertensive. 09/07: still follows. ICP better controlled. EVD at [address] stable. 09/08: Delayed follow. Agitated when sedation lowered. Vomited early; will place NG to suction. Reglan already on board. We'd like to get to trial extubation for 's sake. Failed SBT today - will try again at higher PS. 5/31 no evidence overnight, no more vomiting, discussed with for tracheostomy placement 09/10: Tracheostomy this morning, CXR fine. DHT in good position, advance 10 cm. 09/11: Comfortable with trach; site clean. Talked with parents at bedside. 09/12: Breathes spontaneously with good excursions. 09/13: Tolerated SBT for several hours yesterday but became agitated and ineffective. Continue weaning efforts. 09/14: Still very agitated with sedation vacation. failed SBT for agitation, tachycardia, distress. 09/15: Agitation slightly better today with addition of Precedex. plan for PEG tube today. sputum growing now resistant enterobacter, and secretions are more tenacious today. 09/16: s/p PEG placement today. Following on R upper and lower ext. Continue to have large amount of secretions 09/17: Clinically better less agitated on Precedex follows commands on right side. Still has large amount of secretions, white count improving after starting cefepime. We'll attempt T piece yesterday. Liver enzymes elevated. Check ultrasound of the liver and gallbladder 09/18: No acute events overnight. Gallbladder ultrasound with minimal sludge and some gallbladder wall thickening. Negative radiographic Villegas sign. Remains on Precedex, follows commands on right upper and lower extremity. Failed CPAP yesterday 09/19 doing well on CPAP, we'll continue CPAP overnight if tolerated 09/20 slightly elevated LFTs, nuclear medicine for HIDA scan per ID recommendation 09/21 HIDA does not show evidence of acute cholecystitis. Neuro improving, follows commands and normal strength on right, weakly follows on LUE. Tolerating TP. 09/22: Improving clinically, BP adequately controlled. sat up side of bed with assistance. Getting PT Objective Vital Signs Date Time Temp Pulse Resp B/P Pulse Ox O2 Delivery O2 Flow Rate FiO2 09/22/16 09:05 99 T-piece 7.00 60 09/22/16 06:00 96 09/22/16 04:00 99.6 25 119/82 Intake and Output 09/21/16 09/21/16 09/22/16 08:00 16:00 00:00 Intake Total 506 ml 671 ml 642 ml Output Total 450 ml 55 ml 450 ml Balance 56 ml 616 ml 192 ml Result Diagram: 09/21/16 0358 09/21/16 0358 Other Results Microbiology Date/Time Procedure Status Source Growth 09/19/16 15:00 Gram Stain - Final Complete Sputum Endotracheal 09/19/16 15:00 Sputum Culture - Final Complete Sputum Endotracheal NO GROWTH IN 48 HOURS. Objective Remarks GENERAL: male TP via trach SKIN: Warm and dry. HEAD: healing posterior wound EYES: No scleral icterus. ENT: No nasal bleeding or discharge. Mucous membranes pink and moist. NECK: Trachea midline, trach site clean, dry. CARDIOVASCULAR: Normal rate, regular rhythm. No JVD. RESPIRATORY: On TP. equal chest rise. Some amount mobile secretions GASTROINTESTINAL: Abdomen soft, non-tender, nondistended No guarding. PEG in place : Kumar in place MSK: No obvious deformity. No edema. Well perfused, warm. NEUR: Pupils 2 mm, reactive. Follows commands RUE, RLE. weakly follows on LUE A/P Assessment and Plan Assessment: 40yM with large posterior fossa IPH now s/p decompressive posterior fossa craniectomy 09/01. encephalopathy slowly improving. Goals are aggressive. palliative care following. Sputum growing resistant Enterobacter NEURO: Acute right cerebellar hemorrhage (ICH Score 4) Agitated Delirium-resolved L hemiparesis CT brain 09/01/16 - 4.9 x 5.3 cm right cerebellar hemorrhage with effacement of the fourth ventricle. CTA 09/01/16 - No vascular abnormality. s/p Suboccipital craniectomy, cerebellar hemorrhage evacuation, ventriculostomy by Dr. Ovalles 09/01/16, EVD removed 09/11 Keppra DCd 09/18. (No reported sz) Maintain normothermia with Tylenol/cooling blanket prn temp >100.4. Zyprexa 10mg po q8h, Haldol 5mg iv q4h prn for agitation Oxycodone 10mg po q4h scheduled for pain RESP: Acute hypoxic and hypercarbic respiratory failure Aspiration Intubated at the scene by [facility] with no sedation, s/p Trach 09/10, PEG 09/16 DuoNeb q6 hours; Albuterol q2 hours prn wheezing Enterobacter, Klebsiella in sputum, now Enterobacter is resistant to Rocephin. DCd rocephin and started cefepime 2gm iv q8h 09/15/16 Doing well on TP >36hours off vent completely Consult pulmonary for trach management CV: Malignant Hypertension Sinus tachycardia Labetalol and hydralazine prn SBP <150. Lopressor 5mg iv q4h prn for HR > 90. Propranolol 20mg po q8h for tachycardia and agitation. Norvasc 5 daily GI: Vomiting- resolved. Elevated liver enzymes Zofran 4 mg IV q6 hours TF at goal. Bowel regimen. Liver ultrasound shows minimal sludge and some gallbladder wall thickening HIDA negative for acute cholecystitis FEN/RENAL: Renal insufficiency, resolved Hypokalemia ICU electrolyte protocol Condom catheter Monitor I/O and creatinine ID: Sputum growing Enterobacter, now resistant. s/p Unasyn for empiric aspiration coverage. s/p Rocephin 09/10 - 09/15, but now Enterobacter is resistant. Cefepime 2gm iv q8h 09/15-stop after 7 days per ID Tobra nebs HEME: Monitor CBC, post op CBC. Coags WNL, was not on anticoagulant or antiplatelet therapy. ENDO: Acute stress hyperglycemia Monitor bedside glucose and initiate low-dose insulin sliding scale as indicated PROPH: SCDs and TEDs for DVT prophylaxis. Lovenox 40 mg sq daily 09/21/16. Protonix 40 mg IV daily for stress ulcer prophylaxis. ACCESS: PICC line Level 2 Consult [facility] to assume care in am Michael Melendez MD Sep 22, 2016 11:18
[2016-09-22] MEDS: REMOVE OLD SCOPOLAMINE PATCH T-DERMAL SCH (12:00)
[2016-09-22] MEDS: SCOPOLAMINE 1.5 MG PATCH T-DERMAL SCH (12:37)
[2016-09-22] MEDS: ONDANSETRON HCL 4 MG/2 ML VIAL IV PUSH PRN (13:08)
[2016-09-22] MEDS: ENOXAPARIN SODIUM 40 MG/0.4 ML SYRINGE SQ SCH (14:19)
[2016-09-22] MEDS: HALOPERIDOL LACTATE 5 MG/ML AMP IV PUSH PRN (19:33)
--- NOTE | 2016-09-22 21:58 | MB ---
cc: YARIEL SALDIVAR DATE OF CONSULTATION 09/22/2016 REASON FOR CONSULTATION Respiratory failure post tracheostomy. HISTORY OF PRESENT ILLNESS Mr. Isabel is a 40-year-old -[place] male who was admitted with a cerebellar bleed requiring evacuation subsequently placed on ventilatory support. Tracheostomy placed, presently off ventilatory support on a T tube. His oxygenation is adequate. He is alert, however, could not communicate. He cannot verbalize because of the tracheostomy. He has no fever or chills. No cough or expectoration. No respiratory distress. PAST MEDICAL HISTORY Remarkable for sinusitis for which he had surgery in the past, otherwise unremarkable. FAMILY HISTORY AND SOCIAL HISTORY Not obtainable at present. REVIEW OF SYSTEMS A 10-point review of system essentially as above, otherwise obtainable. PHYSICAL EXAMINATION GENERAL: On examination the patient is alert. VITAL SIGNS: His temperature is 99, pulse 90, respiratory rate 18, blood pressure 139/80. Oxygen saturation 100% on T-piece 0.4% inspired oxygen fraction. HEENT: Exam unremarkable. Eyes without icterus. NECK: Without adenopathy or thyroid enlargement. Central trachea. CHEST: A few scattered rhonchi. CARDIOVASCULAR: Exam PMI not appreciated. S1-S2 audible. No murmur or rub. ABDOMEN: Lax, bowel sounds audible. EXTREMITIES: No clubbing, cyanosis or edema. IMAGING Chest x-ray with bibasilar atelectasis or infiltrates, he remains stable at present. LABORATORY DATA White count 11,000, hemoglobin 12, hematocrit 36, platelets 578,000. Sodium 141, potassium 3.8, BUN 24, creatinine 1.1. Liver enzymes elevated AST at 133, ALT 217, alk phos at 325. Serum albumin at 2.3. IMPRESSION 1. Respiratory failure now off ventilatory support on T tube. 2. Status post intracranial bleed. 3. Status post tracheostomy. PLAN The patient will need pulmonary toilet. Tracheostomy will be maintained at the present time until the patient is able to spontaneously breathe and maintain adequate oxygenation. We will obtain arterial blood gases. Chest x-ray will be periodically followed. Pulmonary toilet is obviously the mainstay of therapy from a pulmonary standpoint. The changes on chest x-ray seems unchanged over his hospitalization. However, he does have a low grade temperature and this needs to be watched. I do thank you for asking me to partake in Mr. Isabel's care. MD MEHRDAD Betts/BOBO /9:18 PM /9:51 PM
[2016-09-23] VITALS (14 sets, daily range): BP systolic 118–143; BP diastolic 72–91; PULSE 88–128; RESP 13–23; TEMP 98.9–100.1; O2SAT 97–100
[2016-09-23] MEDS: CEFEPIME INJ 2,000 MG in SODIUM CHLORIDE 0.9% INJ 100 ML IV SCH ×3 (01:32→16:50)
[2016-09-23] MEDS: oxyCODONE HCL ORAL CONC 20 MG/ML SYRINGE PO SCH ×6 (03:09→22:01)
[2016-09-23] MEDS: HALOPERIDOL LACTATE 5 MG/ML AMP IV PUSH PRN ×2 (03:09→21:34)
[2016-09-23] MEDS: CHLORHEXIDINE GLUCONATE 2 % 1 PACK (2 CLOTHS) TOP SCH (04:20)
[2016-09-23] MEDS: OLANZapine ODT 10 MG TAB PO SCH ×3 (04:37→22:01)
[2016-09-23 05:09] LABS: AUTOMATED NEUTROPHIL # 7.4 TH/MM3 (1.8-7.7); BASOPHIL # 0.1 TH/MM3 (0-0.2); EOSINOPHIL # 0.4 TH/MM3 (0-0.4); EOSINOPHIL % 3.5 % (0.0-4.0); HEMATOCRIT 36.9 % (39.0-51.0); HEMO FLAGS DIFF FINAL; LYMPH % 15.7 % (9.0-44.0); LYMPHOCYTE # 1.8 TH/MM3 (1.0-4.8); MEAN CELL VOLUME 82.7 FL (80.0-100.0); MEAN CORPUSCULAR HEMOGLOBIN 26.4 PG (27.0-34.0); MONO % 14.4 % (0.0-8.0); NEUT % 65.4 % (16.0-70.0); PLATELET COUNT 516 TH/MM3 (150-450); RED BLOOD COUNT 4.47 MIL/MM3 (4.50-5.90); RED CELL DISTRIBUTION WIDTH 14.5 % (11.6-17.2); WHITE BLOOD COUNT 11.3 TH/MM3 (4.0-11.0)
[2016-09-23 05:27] LABS: ANION GAP 12 MEQ/L (5-15); BICARBONATE 27.4 MEQ/L (21.0-32.0); BLOOD UREA NITROGEN 15 MG/DL (7-18); CHLORIDE 98 MEQ/L (98-107); GLOMERULAR FILTRATION RATE 101 ML/MIN (>89); MAGNESIUM 1.9 MG/DL (1.5-2.5); POTASSIUM 3.4 MEQ/L (3.5-5.1); SODIUM (NA) 137 MEQ/L (136-145)
[2016-09-23 05:32] LABS: ALKALINE PHOSPHATASE 322 U/L (45-117); ALT (GPT) 205 U/L (12-78); AST (GOT) 105 U/L (15-37); TOTAL BILIRUBIN ADULT 0.7 MG/DL (0.2-1.0)
[2016-09-23] MEDS: PROPRANOLOL HCL 20 MG TAB PO SCH ×3 (06:12→22:01)
[2016-09-23] MEDS: METOCLOPRAMIDE HCL SYRUP 10 MG/10 ML UDC PO SCH ×4 (06:13→22:01)
[2016-09-23] MEDS: CHLORHEXIDINE 0.12% (ORAL KIT) 15 ML CUP MT SCH ×2 (08:25→22:02)
[2016-09-23] MEDS: RESP: TOBRAMYCIN SULFATE 300 MG/5 ML NEB NEB SCH ×2 (08:27→20:44)
[2016-09-23] MEDS: SODIUM CHLORIDE 0.9% FLUSH 10 ML FLUSH IV FLUSH SCH (09:00)
[2016-09-23] MEDS: SODIUM CHLORIDE 0.9% FLUSH 10 ML FLUSH SCH ×2 (09:00→22:02)
[2016-09-23] MEDS: PANTOPRAZOLE SODIUM 40 MG VIAL IV SCH (10:15)
[2016-09-23] MEDS: DOCUSATE SODIUM 50 MG/SENNA 8.6 MG TAB PO SCH ×2 (10:16→22:01)
[2016-09-23] MEDS: amLODIPine BESYLATE 5 MG TAB PO SCH (10:16)
[2016-09-23] MEDS: HYDROmorphone HCL PF 1 MG/ML VIAL IV PUSH PRN (12:49)
[2016-09-23] MEDS: ENOXAPARIN SODIUM 40 MG/0.4 ML SYRINGE SQ SCH (14:30)
--- NOTE | 2016-09-23 16:04 | HHI.PR ---
Subjective Remarks ASS NO DISTRESS TRACH OK Objective Vital Signs Date Time Temp Pulse Resp B/P Pulse Ox O2 Delivery O2 Flow Rate FiO2 09/23/16 14:00 113 09/23/16 12:00 99.2 106 22 130/91 97 09/23/16 12:00 106 09/23/16 10:00 108 09/23/16 08:33 98 T-piece 5.00 28 09/23/16 08:00 102 09/23/16 08:00 98.9 102 20 118/72 99 09/23/16 07:00 99 T-Piece 40 09/23/16 06:00 102 09/23/16 04:00 99.1 88 23 133/81 98 09/23/16 04:00 88 09/23/16 02:00 93 09/23/16 00:00 111 09/23/16 00:00 99.0 111 19 140/84 99 09/22/16 23:46 18 09/22/16 22:00 104 09/22/16 20:00 99.3 99 32 146/83 95 09/22/16 20:00 100 T-piece 5.00 40 09/22/16 20:00 108 09/22/16 19:00 100 T-Piece 40 09/22/16 18:00 102 I/O 09/22/16 09/22/16 09/22/16 09/23/16 09/23/16 09/23/16 06:59 14:59 22:59 06:59 14:59 22:59 Intake Total 620 ml 597 ml 420 ml 736 ml 676 ml Output Total 350 ml 550 ml 450 ml 375 ml 450 ml Balance 270 ml 47 ml -30 ml 361 ml 226 ml Intake IV Total 116 ml 177 ml 177 ml 192 ml 217 ml Tube Feeding 444 ml 360 ml 153 ml 424 ml 339 ml Tube Irrigant 60 ml 60 ml Other 90 ml 120 ml 120 ml Output Urine Total 350 ml 550 ml 450 ml 375 ml 450 ml Stool Total 0 ml 0 ml 0 ml 0 ml # Bowel Movements 0 Result Diagram: 09/23/1641109/23/16411 Objective Remarks GENERAL: SKIN: Warm and dry. HEAD: Atraumatic. Normocephalic. EYES: Pupils equal and round. No scleral icterus. No injection or drainage. ENT: No nasal bleeding or discharge. Mucous membranes pink and moist. NECK: Tracheostomy in place CARDIOVASCULAR: Regular rate and rhythm. RESPIRATORY: No accessory muscle use. Clear to auscultation. Breath sounds equal bilaterally. GASTROINTESTINAL: Abdomen soft, non-tender, nondistended. Hepatic and splenic margins not palpable. MUSCULOSKELETAL: Extremities without clubbing, cyanosis, or edema. No obvious deformities. NEUROLOGICAL: Awake and alert. No obvious cranial nerve deficits. Motor grossly within normal limits. Five out of 5 muscle strength in the arms and legs. Normal speech. PSYCHIATRIC: Appropriate mood and affect; insight and judgment normal. Assessment and Plan Assessment and Plan ass respiratory failure IC bleed PLAN o2 as needed pulm. toilet Reed Mcbride MD Sep 23, 2016 16:03
[2016-09-23] MEDS: ONDANSETRON HCL 4 MG/2 ML VIAL IV PUSH PRN (16:49)
--- NOTE | 2016-09-23 17:17 | HHI.PR ---
Subjective Remarks Long course in ICU after ICH. Gradually improving. Safe for transfer out of ICU today. Some tachycardia present. Objective Vital Signs Date Time Temp Pulse Resp B/P Pulse Ox O2 Delivery O2 Flow Rate FiO2 09/23/16 16:00 91 09/23/16 16:00 99.6 91 13 119/80 97 09/23/16 14:00 113 09/23/16 12:00 99.2 106 22 130/91 97 09/23/16 12:00 106 09/23/16 10:00 108 09/23/16 08:33 98 T-piece 5.00 28 09/23/16 08:00 102 09/23/16 08:00 98.9 102 20 118/72 99 09/23/16 07:00 99 T-Piece 40 09/23/16 06:00 102 09/23/16 04:00 99.1 88 23 133/81 98 09/23/16 04:00 88 09/23/16 02:00 93 09/23/16 00:00 111 09/23/16 00:00 99.0 111 19 140/84 99 09/22/16 23:46 18 09/22/16 22:00 104 09/22/16 20:00 99.3 99 32 146/83 95 09/22/16 20:00 100 T-piece 5.00 40 09/22/16 20:00 108 09/22/16 19:00 100 T-Piece 40 09/22/16 18:00 102 I/O 09/22/16 09/22/16 09/22/16 09/23/16 09/23/16 09/23/16 07:00 15:00 23:00 07:00 15:00 23:00 Intake Total 620 ml 597 ml 420 ml 736 ml 676 ml Output Total 350 ml 550 ml 450 ml 375 ml 450 ml Balance 270 ml 47 ml -30 ml 361 ml 226 ml Intake IV Total 116 ml 177 ml 177 ml 192 ml 217 ml Tube Feeding 444 ml 360 ml 153 ml 424 ml 339 ml Tube Irrigant 60 ml 60 ml Other 90 ml 120 ml 120 ml Output Urine Total 350 ml 550 ml 450 ml 375 ml 450 ml Stool Total 0 ml 0 ml 0 ml 0 ml # Bowel Movements 0 Result Diagram: 09/23/16 0412 09/23/16 041 Imaging Last Impressions Hepatobiliary Scan Nuclear Medicine 09/20/16 Signed Impressions: Service Date/Time: Tuesday, September 20, 2016 09:28 - CONCLUSION: Delayed filling of what appears to be a contracted gallbladder suggesting the possibility of gallbladder dysfunction but no acute cholecystitis or cystic/common bile duct obstruction. Al Wong MD Liver Ultrasound 09/18/16 Signed Impressions: Service Date/Time: Sunday, September 18, 2016 08:42 - CONCLUSION: Minimal sludge in the gallbladder with gallbladder wall thickening. The patient does not appear to be tender over the gallbladder. Champ Pascal MD FACR Chest X-Ray 09/17/16599 Signed Impressions: Service Date/Time: September 04:47 - CONCLUSION: Bibasilar infiltrates right greater left. A tracheostomy tube in good position. PICC line in good position. Keith Malave MD Gastrostomy Tube Placement 09/16/16 Signed Impressions: Service Date/Time: Friday, September 16, 2016 11:10 - CONCLUSION: Uncomplicated gastrostomy tube placement as above. Shady Shelby MD Abdomen X-Ray 09/10/16 Signed Impressions: Service Date/Time: September 06:34 - CONCLUSION: Feeding tube tip in the stomach Al Hernandez MD Head CT 09/07/16599 Signed Impressions: Service Date/Time: Wednesday, September 07, 2016 06:05 - CONCLUSION: Stable brain appearance. Al Hernandez MD Neck CTA 09/01/162019 Signed Impressions: Service Date/Time: Thursday, September 01, 2016 20:55 - CONCLUSION: Unremarkable exam. The carotid arteries are intact. Ag Saxena MD Head CTA 09/01/162019 Signed Impressions: Service Date/Time: Thursday, September 01, 2016 20:55 - CONCLUSION: The etiology of the patient's right cerebellar h hemorrhage is not identified and there appears to be some infiltrates and possible pleural effusions in the upper lungs that are visualized. Erika Bob MD Objective Remarks GENERAL: NAD, A&Ox3, unable to talk due to trache, but can communicate SKIN: Warm and dry. HEAD: Normocephalic. EYES: No scleral icterus. No injection or drainage. NECK: Supple, trachea midline. No JVD or lymphadenopathy. Midline Tracheostomy. CARDIOVASCULAR: Regular rate and rhythm without murmurs, gallops, or rubs. RESPIRATORY: Breath sounds equal bilaterally. No accessory muscle use. GASTROINTESTINAL: Abdomen soft, non-tender, nondistended. MUSCULOSKELETAL: No cyanosis, or edema. BACK: Nontender without obvious deformity. No CVA tenderness. Medications and IVs Administered Medications Medications (Trade) Dose Ordered Sig/Demetris Route PRN Reason Start Time Stop Time Status Last Admin Dose Admin Sodium Chloride (NS Flush) 2 ml BID .XX 09/01/16 21:00 09/23/16 09:00 Pantoprazole Sodium (Protonix Inj) 40 mg DAILY IV 09/02/16 09:00 09/23/16 10:15 Chlorhexidine Gluconate 3 pack 3 pack Taper DAILY@04 TOP 09/02/16 04:00 08/29/17 03:59 09/23/16 04:20 Potassium Chloride 100 ml @ 50 mls/hr Q2H PRN IV For Potassium 2.8 - 3.2 mEq/L 09/01/16 21:15 09/02/16 04:54 Potassium Chloride 100 ml @ 25 mls/hr UNSCH PRN IV For Potassium 3.3 - 3.5 mEq/L 09/01/16 21:15 09/23/16 12:30 Magnesium Sulfate 2 gm/Sodium Chloride 100 ml @ 50 mls/hr UNSCH PRN IV For Magnesium 1.2 - 1.6 mg/dL 09/01/16 21:15 09/02/16 08:18 Sodium Phosphate/ Sodium Chloride (Sodium Phosphate Inj/NS 250 ml Inj) 250 ml @ 42 mls/hr UNSCH PRN IV For Phosphorus < 2.5 mg/dL 09/01/16 21:15 09/02/16 08:18 Chlorhexidine Gluconate (Peridex 0.12% Liq) 15 ml BID@08,20 MT 09/02/16 08:00 09/23/16 08:25 Labetalol HCl (Trandate Inj) 10 mg Q4H PRN IV PUSH SBP >150 09/02/16 00:45 09/19/16 12:25 Acetaminophen (Ofirmev Inj) 1,000 mg Q6H PRN IV temp >100.4 09/02/16 01:00 09/19/16 20:10 Ondansetron HCl (Zofran Inj) 4 mg Q6HR PRN IV PUSH VOMITING 09/02/16 01:00 09/22/16 13:08 Metoclopramide HCl (Reglan Liq) 10 mg ACHS PO 09/03/16 11:00 09/23/16 10:16 Bisacodyl (Dulcolax Supp) 10 mg DAILY RECTAL 09/04/16 09:00 09/22/16 09:01 Senna/Docusate Sodium (Tania-Colace) 1 tab BID PO 09/03/16 09:45 09/23/16 10:16 Metoprolol Tartrate (Lopressor Inj) 5 mg Q4H PRN IV PUSH HR > 90 or sbp > 160 09/06/16 10:15 09/13/16 04:13 Sodium Chloride (NS Flush) See Protocol DAILY IV FLUSH 09/11/16 09:00 09/23/16 09:00 Heparin Sodium (Porcine) (Heparin Central Flush) See Protocol DAILY IV FLUSH 09/11/16 09:00 09/23/16 10:15 Heparin Sodium (Porcine) (Heparin Central Flush) See Protocol UNSCH PRN IV FLUSH SEE PROTOCOL TABLE 09/10/16 14:45 09/14/16 05:40 Chlorpromazine HCl (Thorazine Inj) 25 mg Q4H PRN IM hiccups 09/12/16 09:30 09/13/16 19:50 Metoprolol Tartrate (Lopressor) 50 mg Q12HR PO 09/13/16 09:15 Hold 09/14/16 20:56 Amlodipine Besylate (Norvasc) 5 mg DAILY PO 09/13/16 09:15 09/23/16 10:16 Haloperidol Lactate (Haldol Inj) 5 mg Q4H PRN IV PUSH agitation 09/14/16 10:45 09/23/16 03:09 Olanzapine (ZyPREXA ZYDIS ODT) 10 mg Q8H PO 09/14/16 12:00 09/23/16 12:21 Hydromorphone HCl (Dilaudid Pf Inj) 0.5 mg Q4H PRN IV PUSH pain 8-10 or not taking po 09/14/16 10:45 09/23/16 12:49 Oxycodone HCl (Roxicodone Intensol Liq) 10 mg Q4H PO 09/14/16 11:00 09/23/16 14:30 Propranolol HCl 20 mg 20 mg Q8HR PO 09/15/16 06:23 09/23/16 14:30 Cefepime HCl/ Sodium Chloride (Maxipime Inj/NS Inj) 100 ml @ 200 mls/hr Q8H IV 09/15/16 10:00 09/24/16 09:59 09/23/16 10:13 Scopolamine (Transderm-Scop 1.5 Mg Patch.72 Hr) 1 patch Q3D T-DERMAL 09/19/16 12:00 09/22/16 12:37 Miscellaneous Information 1 Q3D T-DERMAL 09/22/16 12:00 09/22/16 12:00 Enoxaparin Sodium (Lovenox Inj) 40 mg Q24H SQ 09/21/16 14:00 09/23/16 14:30 A/P Problem List: (1) HCAP (healthcare-associated pneumonia) ICD Code: J18.9 (2) Cerebellar hemorrhage, acute ICD Code: I61.4 (3) Left hemiparesis ICD Code: G81.94 (4) Spontaneous intraparenchymal intracranial hemorrhage, acute ICD Code: I62.9 (5) Malignant hypertension ICD Code: I10 Assessment and Plan Assessment and Plan 40 year old male admitted with a right cerebellar ICH. Status post craniectomy 09/01. Transfer of service and transfer out of ICU 09/23/16. Status Post Acute right cerebellar hemorrhage L hemiparesis Status post suboccipital craniectomy with cerebellar hemorrhage evacuation and ventriculostomy on 09/01/16 Zyprexa continued Oxycodone continued Follow for fevers or hypothermia PT, OT, ST Acute hypoxic and hypercarbic respiratory failure Aspiration Scheduled DuoNeb PRN Albuterol Enterobacter, Klebsiella in sputum, now Enterobacter is resistant to Rocephin. cefepime 2gm iv q8h started 09/15/16, for resistant enterobacter Pulmonary Toilet Trach management per pulmonology Malignant Hypertension Sinus tachycardia Continue Labetalol and hydralazine prn SBP <150. Continue Lopressor 5mg iv q4h prn for HR > 90. Continue Propranolol 20mg po q8h for tachycardia and agitation. Continue Norvasc 5 daily Elevated liver enzymes Improving through time Follow LFTs Hypokalemia Monitor Replace as needed DVT Prophylaxis Lovenox, SCDs GI Prophylaxis Protonix Lines: PICC line Tera Mcmahan MD Sep 23, 2016 17:17
[2016-09-24] VITALS (12 sets, daily range): BP systolic 119–133; BP diastolic 73–81; PULSE 105–121; RESP 11–30; TEMP 98.2–99.8; O2SAT 96–100
[2016-09-24] MEDS: ACETAMINOPHEN 1000 MG/100 ML VIAL IV PRN (00:22)
[2016-09-24] MEDS: CEFEPIME INJ 2,000 MG in SODIUM CHLORIDE 0.9% INJ 100 ML IV SCH (01:52)
[2016-09-24] MEDS: oxyCODONE HCL ORAL CONC 20 MG/ML SYRINGE PO SCH ×7 (03:10→23:34)
[2016-09-24] MEDS: OLANZapine ODT 10 MG TAB PO SCH ×3 (03:10→19:55)
[2016-09-24] MEDS: CHLORHEXIDINE GLUCONATE 2 % 1 PACK (2 CLOTHS) TOP SCH (04:38)
[2016-09-24 04:58] LABS: HEMATOCRIT 38.4 % (39.0-51.0); MEAN CELL VOLUME 82.3 FL (80.0-100.0); MEAN CORPUSCULAR HGB CONC 32.8 % (32.0-36.0); PLATELET COUNT 455 TH/MM3 (150-450); RED BLOOD COUNT 4.67 MIL/MM3 (4.50-5.90); RED CELL DISTRIBUTION WIDTH 14.4 % (11.6-17.2); REVIEW FLAG FINAL
[2016-09-24 05:28] LABS: ALT (GPT) 193 U/L (12-78); ANION GAP 6 MEQ/L (5-15); AST (GOT) 108 U/L (15-37); BICARBONATE 29.8 MEQ/L (21.0-32.0); BLOOD UREA NITROGEN 17 MG/DL (7-18); CHLORIDE 102 MEQ/L (98-107); GLOMERULAR FILTRATION RATE 101 ML/MIN (>89); POTASSIUM 3.8 MEQ/L (3.5-5.1); SODIUM (NA) 138 MEQ/L (136-145)
[2016-09-24 05:39] LABS: ALKALINE PHOSPHATASE 309 U/L (45-117); TOTAL BILIRUBIN ADULT 0.5 MG/DL (0.2-1.0)
[2016-09-24] MEDS: PROPRANOLOL HCL 20 MG TAB PO SCH ×3 (07:06→21:25)
[2016-09-24] MEDS: METOCLOPRAMIDE HCL SYRUP 10 MG/10 ML UDC PO SCH ×4 (07:06→19:55)
[2016-09-24] MEDS: ONDANSETRON HCL 4 MG/2 ML VIAL IV PUSH PRN (07:06)
[2016-09-24] MEDS: HYDROmorphone HCL PF 1 MG/ML VIAL IV PUSH PRN ×3 (07:07→17:52)
--- NOTE | 2016-09-24 07:48 | HHI.PR ---
Subjective Remarks Patient expresses dyspnea secondary to buildup of secretions at tracheostomy site. No fevers overnight. No significant change compared to previous day. Objective Vital Signs Date Time Temp Pulse Resp B/P Pulse Ox O2 Delivery O2 Flow Rate FiO2 09/24/16 04:10 19 09/24/16 04:00 98.7 105 11 122/73 98 09/24/16 04:00 105 09/24/16 02:00 120 09/24/16 00:00 116 09/24/16 00:00 99.0 116 23 125/73 96 09/23/16 22:00 128 09/23/16 20:46 98 T-piece 6.00 28 09/23/16 20:00 112 09/23/16 20:00 100.1 112 23 143/86 100 09/23/16 19:00 99 T-Piece 28 09/23/16 18:00 109 09/23/16 16:00 91 09/23/16 16:00 99.6 91 13 119/80 97 09/23/16 14:00 113 09/23/16 12:00 99.2 106 22 130/91 97 09/23/16 12:00 106 09/23/16 10:00 108 09/23/16 08:33 98 T-piece 5.00 28 09/23/16 08:00 102 09/23/16 08:00 98.9 102 20 118/72 99 I/O 09/23/16 09/23/16 09/23/16 09/24/16 09/24/16 09/24/16 07:00 15:00 23:00 07:00 15:00 23:00 Intake Total 736 ml 676 ml 744 ml Output Total 375 ml 450 ml 550 ml Balance 361 ml 226 ml 194 ml Intake IV Total 192 ml 217 ml 249 ml Tube Feeding 424 ml 339 ml 375 ml Other 120 ml 120 ml 120 ml Output Urine Total 375 ml 450 ml 550 ml Stool Total 0 ml 0 ml # Bowel Movements 0 Result Diagram: 09/24/1643009/24/16430 Objective Remarks GENERAL: NAD, A&Ox3, unable to talk due to trache, but can communicate SKIN: Warm and dry. HEAD: Normocephalic. EYES: No scleral icterus. No injection or drainage. NECK: Supple, trachea midline. No JVD or lymphadenopathy. Midline Tracheostomy. CARDIOVASCULAR: Regular rate and rhythm without murmurs, gallops, or rubs. RESPIRATORY: Breath sounds equal bilaterally. No accessory muscle use. GASTROINTESTINAL: Abdomen soft, non-tender, nondistended. MUSCULOSKELETAL: No cyanosis, or edema. BACK: Nontender without obvious deformity. No CVA tenderness. A/P Problem List: (1) HCAP (healthcare-associated pneumonia) ICD Code: J18.9 (2) Cerebellar hemorrhage, acute ICD Code: I61.4 (3) Left hemiparesis ICD Code: G81.94 (4) Spontaneous intraparenchymal intracranial hemorrhage, acute ICD Code: I62.9 (5) Malignant hypertension ICD Code: I10 Assessment and Plan Assessment and Plan 40 year old male admitted with a right cerebellar ICH. Status post craniectomy 09/01. Transfer of service and transfer out of ICU status 09/23/16. Tracheostomy care this morning. Suction patient regularly. No need for restraints when seen. Status Post Acute right cerebellar hemorrhage L hemiparesis Status post suboccipital craniectomy with cerebellar hemorrhage evacuation and ventriculostomy on 09/01/16 Zyprexa continued Oxycodone continued Follow for fevers or hypothermia PT, OT, ST Acute hypoxic and hypercarbic respiratory failure Aspiration Scheduled DuoNeb PRN Albuterol Enterobacter, Klebsiella in sputum, now Enterobacter is resistant to Rocephin. cefepime 2gm iv q8h started 09/15/16, for resistant enterobacter Pulmonary Toilet and tracheostomy care Trach management per pulmonology Malignant Hypertension Sinus tachycardia Continue Labetalol and hydralazine prn SBP <150. Continue Lopressor 5mg iv q4h prn for HR > 90. Continue Propranolol 20mg po q8h for tachycardia and agitation. Continue Norvasc 5 daily Elevated liver enzymes Improving through time Follow LFTs Hypokalemia Monitor Replace as needed DVT Prophylaxis Lovenox, SCDs GI Prophylaxis Protonix Lines: PICC line Tera Mcmahan MD Sep 24, 2016 07:48
[2016-09-24] MEDS: RESP: TOBRAMYCIN SULFATE 300 MG/5 ML NEB NEB SCH ×2 (08:00→19:44)
[2016-09-24] MEDS: BISACODYL 10 MG SUPP RECTAL SCH ×2 (09:00→18:06)
[2016-09-24] MEDS: SODIUM CHLORIDE 0.9% FLUSH 10 ML FLUSH IV FLUSH SCH (09:00)
[2016-09-24] MEDS: SODIUM CHLORIDE 0.9% FLUSH 10 ML FLUSH SCH ×2 (09:00→19:55)
[2016-09-24] MEDS: CHLORHEXIDINE 0.12% (ORAL KIT) 15 ML CUP MT SCH ×2 (10:05→20:00)
[2016-09-24] MEDS: amLODIPine BESYLATE 5 MG TAB PO SCH (10:06)
[2016-09-24] MEDS: DOCUSATE SODIUM 50 MG/SENNA 8.6 MG TAB PO SCH ×2 (10:06→19:55)
[2016-09-24] MEDS: PANTOPRAZOLE SODIUM 40 MG VIAL IV SCH (10:06)
[2016-09-24] MEDS: ENOXAPARIN SODIUM 40 MG/0.4 ML SYRINGE SQ SCH (14:54)
[2016-09-24] MEDS: SODIUM CHLOR 0.9% 1000 ML INJ 1,000 ML IV SCH ×2 (15:00→17:52)
[2016-09-24] MEDS: METOPROLOL TARTRATE 5 MG/5 ML VIAL IV PUSH PRN (15:35)
--- NOTE | 2016-09-24 18:48 | HHI.PR ---
Subjective Remarks ASS NO DISTRESS TRACH [place] Objective Vital Signs Date Time Temp Pulse Resp B/P Pulse Ox O2 Delivery O2 Flow Rate FiO2 09/24/16 18:00 109 09/24/16 16:00 106 09/24/16 16:00 99.6 106 29 133/76 100 09/24/16 14:00 121 09/24/16 12:00 98.8 112 17 119/74 99 09/24/16 12:00 112 09/24/16 10:00 117 09/24/16 08:56 100 T-piece 5.00 28 09/24/16 08:00 105 09/24/16 08:00 98.2 105 30 127/81 99 09/24/16 07:00 99 T-Piece 28 09/24/16 06:00 110 09/24/16 04:10 19 09/24/16 04:00 98.7 105 11 122/73 98 09/24/16 04:00 105 09/24/16 02:00 120 09/24/16 00:00 116 09/24/16 00:00 99.0 116 23 125/73 96 09/23/16 22:00 128 09/23/16 20:46 98 T-piece 6.00 28 09/23/16 20:00 112 09/23/16 20:00 100.1 112 23 143/86 100 09/23/16 19:00 99 T-Piece 28 I/O 09/23/16 09/23/16 09/23/16 09/24/16 09/24/16 09/24/16 07:00 15:00 23:00 07:00 15:00 23:00 Intake Total 736 ml 676 ml 744 ml 805 ml 534 ml Output Total 375 ml 450 ml 550 ml 350 ml 250 ml Balance 361 ml 226 ml 194 ml 455 ml 284 ml Intake IV Total 192 ml 217 ml 249 ml 280 ml 64 ml Tube Feeding 424 ml 339 ml 375 ml 405 ml 350 ml Other 120 ml 120 ml 120 ml 120 ml 120 ml Output Urine Total 375 ml 450 ml 550 ml 350 ml 250 ml Stool Total 0 ml 0 ml # Bowel Movements 0 0 0 Result Diagram: 09/24/1643009/24/16430 Objective Remarks GENERAL: SKIN: Warm and dry. HEAD: Atraumatic. Normocephalic. EYES: Pupils equal and round. No scleral icterus. No injection or drainage. ENT: No nasal bleeding or discharge. Mucous membranes pink and moist. NECK: Tracheostomy in place CARDIOVASCULAR: Regular rate and rhythm. RESPIRATORY: No accessory muscle use. Clear to auscultation. Breath sounds equal bilaterally. GASTROINTESTINAL: Abdomen soft, non-tender, nondistended. Hepatic and splenic margins not palpable. MUSCULOSKELETAL: Extremities without clubbing, cyanosis, or edema. No obvious deformities. NEUROLOGICAL: Awake and alert. No obvious cranial nerve deficits. Motor grossly within normal limits. Five out of 5 muscle strength in the arms and legs. Normal speech. PSYCHIATRIC: Appropriate mood and affect; insight and judgment normal. Assessment and Plan Assessment and Plan ass respiratory failure IC bleed PLAN o2 as needed pulm. toilet Reed Mcbride MD Sep 24, 2016 18:48
[2016-09-25] VITALS (15 sets, daily range): BP systolic 127–145; BP diastolic 80–92; PULSE 100–126; RESP 15–30; TEMP 97.8–99.3; O2SAT 97–100
[2016-09-25] MEDS: oxyCODONE HCL ORAL CONC 20 MG/ML SYRINGE PO SCH ×6 (02:49→23:33)
[2016-09-25] MEDS: OLANZapine ODT 10 MG TAB PO SCH ×3 (02:50→22:12)
[2016-09-25] MEDS: CHLORHEXIDINE GLUCONATE 2 % 1 PACK (2 CLOTHS) TOP SCH (04:00)
[2016-09-25] MEDS: PROPRANOLOL HCL 20 MG TAB PO SCH ×3 (06:00→20:45)
[2016-09-25] MEDS: METOCLOPRAMIDE HCL SYRUP 10 MG/10 ML UDC PO SCH ×4 (07:00→20:45)
--- NOTE | 2016-09-25 07:10 | HHI.PR ---
Addendum to Inpatient Note Addendum Reason: Additional Documentation Additional Information Cefepime IV stopped 09/24/16 s/p 7 days of therapy. Procalcitonin normal. Continue to observe off antibiotics. Will sign off please call back if any change in clinical condition or questions. Rachel Torrez MD Sep 25, 2016 07:10
[2016-09-25] MEDS: RESP: TOBRAMYCIN SULFATE 300 MG/5 ML NEB NEB SCH ×2 (08:28→19:57)
--- NOTE | 2016-09-25 08:44 | HHI.PR ---
Subjective Remarks ASS NO DISTRESS TRACH [place] Objective Vital Signs Date Time Temp Pulse Resp B/P Pulse Ox O2 Delivery O2 Flow Rate FiO2 09/25/16 08:28 98 T-piece 6.00 28 09/25/16 06:00 107 09/25/16 04:00 98.0 103 15 127/80 100 09/25/16 04:00 107 09/25/16 02:00 107 09/25/16 00:00 97.8 107 15 129/80 100 09/25/16 00:00 107 09/24/16 20:00 99.8 120 29 123/74 98 09/24/16 20:00 120 09/24/16 19:00 100 T-Piece 28 09/24/16 18:00 109 09/24/16 16:00 106 09/24/16 16:00 99.6 106 29 133/76 100 09/24/16 14:00 121 09/24/16 12:00 98.8 112 17 119/74 99 09/24/16 12:00 112 09/24/16 10:00 117 09/24/16 08:56 100 T-piece 5.00 28 I/O 09/24/16 09/24/16 09/24/16 09/25/16 09/25/16 09/25/16 07:00 15:00 23:00 07:00 15:00 23:00 Intake Total 805 ml 534 ml 1106 ml 1459 ml Output Total 350 ml 250 ml 525 ml 400 ml Balance 455 ml 284 ml 581 ml 1059 ml Intake IV Total 280 ml 64 ml 629 ml 879 ml Tube Feeding 405 ml 350 ml 417 ml 520 ml Other 120 ml 120 ml 60 ml 60 ml Output Urine Total 350 ml 250 ml 525 ml 400 ml # Bowel Movements 0 0 0 0 Result Diagram: 09/24/1643009/24/16 043 Objective Remarks GENERAL: SKIN: Warm and dry. HEAD: Atraumatic. Normocephalic. EYES: Pupils equal and round. No scleral icterus. No injection or drainage. ENT: No nasal bleeding or discharge. Mucous membranes pink and moist. NECK: Tracheostomy in place CARDIOVASCULAR: Regular rate and rhythm. RESPIRATORY: No accessory muscle use. Clear to auscultation. Breath sounds equal bilaterally. GASTROINTESTINAL: Abdomen soft, non-tender, nondistended. Hepatic and splenic margins not palpable. MUSCULOSKELETAL: Extremities without clubbing, cyanosis, or edema. No obvious deformities. NEUROLOGICAL: Awake and alert. No obvious cranial nerve deficits. Motor grossly within normal limits. Five out of 5 muscle strength in the arms and legs. Normal speech. PSYCHIATRIC: Appropriate mood and affect; insight and judgment normal. Assessment and Plan Assessment and Plan ass respiratory failure IC bleed PLAN o2 as needed pulm. toilet Reed Mcbride MD Sep 25, 2016 08:44
[2016-09-25] MEDS: HALOPERIDOL LACTATE 5 MG/ML AMP IV PUSH PRN ×3 (08:45→16:44)
[2016-09-25] MEDS: PANTOPRAZOLE SODIUM 40 MG VIAL IV SCH (08:47)
[2016-09-25] MEDS: SODIUM CHLORIDE 0.9% FLUSH 10 ML FLUSH IV FLUSH SCH (08:47)
[2016-09-25] MEDS: SODIUM CHLORIDE 0.9% FLUSH 10 ML FLUSH SCH ×2 (08:48→14:49)
[2016-09-25] MEDS: amLODIPine BESYLATE 5 MG TAB PO SCH (08:48)
[2016-09-25] MEDS: ONDANSETRON HCL 4 MG/2 ML VIAL IV PUSH PRN ×2 (08:48→23:31)
[2016-09-25] MEDS: CHLORHEXIDINE 0.12% (ORAL KIT) 15 ML CUP MT SCH ×2 (08:48→20:46)
[2016-09-25] MEDS: DOCUSATE SODIUM 50 MG/SENNA 8.6 MG TAB PO SCH ×2 (08:48→20:45)
[2016-09-25] MEDS: SODIUM CHLOR 0.9% 1000 ML INJ 1,000 ML IV SCH ×2 (11:05→20:45)
[2016-09-25] MEDS: SCOPOLAMINE 1.5 MG PATCH T-DERMAL SCH (11:05)
[2016-09-25] MEDS: REMOVE OLD SCOPOLAMINE PATCH T-DERMAL SCH (11:17)
[2016-09-25] MEDS: HYDROmorphone HCL PF 1 MG/ML VIAL IV PUSH PRN ×2 (11:19→14:50)
[2016-09-25] MEDS: ENOXAPARIN SODIUM 40 MG/0.4 ML SYRINGE SQ SCH (12:47)
--- NOTE | 2016-09-25 14:41 | HHI.PR ---
Subjective Remarks Recurrent agitation. Patient had been sedated with Haldol when I saw him. He is lethargic and seen. Nurses report copious secretions and recurrent emesis with attempted suctioning. Objective Vital Signs Date Time Temp Pulse Resp B/P Pulse Ox O2 Delivery O2 Flow Rate FiO2 09/25/16 12:00 99.3 118 24 141/91 98 09/25/16 12:00 118 09/25/16 11:00 126 09/25/16 10:00 120 09/25/16 09:00 115 09/25/16 08:28 98 T-piece 6.00 28 09/25/16 08:00 99.1 115 26 139/92 100 09/25/16 08:00 115 09/25/16 07:00 99 T-Piece 28 09/25/16 07:00 100 09/25/16 06:00 107 09/25/16 04:00 98.0 103 15 127/80 100 09/25/16 04:00 107 09/25/16 02:00 107 09/25/16 00:00 97.8 107 15 129/80 100 09/25/16 00:00 107 09/24/16 20:00 99.8 120 29 123/74 98 09/24/16 20:00 120 09/24/16 19:00 100 T-Piece 28 09/24/16 18:00 109 09/24/16 16:00 106 09/24/16 16:00 99.6 106 29 133/76 100 I/O 09/24/16 09/24/16 09/24/16 09/25/16 09/25/16 09/25/16 07:00 15:00 23:00 07:00 15:00 23:00 Intake Total 805 ml 534 ml 1106 ml 1459 ml Output Total 350 ml 250 ml 525 ml 400 ml 0 ml Balance 455 ml 284 ml 581 ml 1059 ml 0 ml Intake IV Total 280 ml 64 ml 629 ml 879 ml Tube Feeding 405 ml 350 ml 417 ml 520 ml Other 120 ml 120 ml 60 ml 60 ml Output Urine Total 350 ml 250 ml 525 ml 400 ml Tube Feeding Residual Discard 0 ml # Bowel Movements 0 0 0 0 Result Diagram: 09/24/1643009/24/16430 Objective Remarks GENERAL: NAD, A&Ox3, unable to talk due to trache, but can communicate SKIN: Warm and dry. HEAD: Normocephalic. EYES: No scleral icterus. No injection or drainage. NECK: Supple, trachea midline. No JVD or lymphadenopathy. Midline Tracheostomy. CARDIOVASCULAR: Regular rate and rhythm without murmurs, gallops, or rubs. RESPIRATORY: Breath sounds equal bilaterally. No accessory muscle use. GASTROINTESTINAL: Abdomen soft, non-tender, nondistended. MUSCULOSKELETAL: No cyanosis, or edema. BACK: Nontender without obvious deformity. No CVA tenderness. A/P Problem List: (1) HCAP (healthcare-associated pneumonia) ICD Code: J18.9 (2) Cerebellar hemorrhage, acute ICD Code: I61.4 (3) Left hemiparesis ICD Code: G81.94 (4) Spontaneous intraparenchymal intracranial hemorrhage, acute ICD Code: I62.9 (5) Malignant hypertension ICD Code: I10 Assessment and Plan Assessment and Plan 40 year old male admitted with a right cerebellar ICH. Status post craniectomy 09/01. Continue suction as needed. Levsin started to treat oral secretions and tracheostomy site secretions patient has no lung secretions. Continue PT and OT. Start speech therapy. Status Post Acute right cerebellar hemorrhage L hemiparesis Status post suboccipital craniectomy with cerebellar hemorrhage evacuation and ventriculostomy on 09/01/16 Zyprexa continued Oxycodone continued Follow for fevers or hypothermia PT, OT, ST Acute hypoxic and hypercarbic respiratory failure Aspiration Scheduled DuoNeb PRN Albuterol Enterobacter, Klebsiella in sputum, now Enterobacter is resistant to Rocephin. cefepime 2gm iv q8h started 09/15/16, for resistant enterobacter Pulmonary Toilet and tracheostomy care Trach management per pulmonology Malignant Hypertension Sinus tachycardia Continue Labetalol and hydralazine prn SBP <150. Continue Lopressor 5mg iv q4h prn for HR > 90. Continue Propranolol 20mg po q8h for tachycardia and agitation. Continue Norvasc 5 daily Elevated liver enzymes Improving through time Follow LFTs Hypokalemia Monitor Replace as needed DVT Prophylaxis Lovenox, SCDs GI Prophylaxis Protonix Lines: PICC line Tera Mcmahan MD Sep 25, 2016 14:41
[2016-09-25] MEDS: HYOSCYAMINE SOLN 0.125 MG/ML 15 ML BTL PO PRN ×2 (14:50→23:31)
[2016-09-25] MEDS: DILTIAZEM HCL 30 MG TAB PO SCH ×2 (16:53→23:31)
[2016-09-26] VITALS (13 sets, daily range): BP systolic 108–143; BP diastolic 72–98; PULSE 93–121; RESP 18–24; TEMP 98.8–99.3; O2SAT 94–100
[2016-09-26] MEDS: OLANZapine ODT 10 MG TAB PO SCH ×3 (03:20→20:26)
[2016-09-26] MEDS: oxyCODONE HCL ORAL CONC 20 MG/ML SYRINGE PO SCH ×5 (03:21→20:26)
[2016-09-26] MEDS: CHLORHEXIDINE GLUCONATE 2 % 1 PACK (2 CLOTHS) TOP SCH (03:21)
[2016-09-26] MEDS: PROPRANOLOL HCL 20 MG TAB PO SCH ×3 (06:18→22:00)
[2016-09-26] MEDS: DILTIAZEM HCL 30 MG TAB PO SCH ×3 (06:18→18:14)
[2016-09-26] MEDS: METOCLOPRAMIDE HCL SYRUP 10 MG/10 ML UDC PO SCH ×4 (06:20→20:26)
[2016-09-26] MEDS: SODIUM CHLOR 0.9% 1000 ML INJ 1,000 ML IV SCH ×2 (06:21→16:01)
[2016-09-26] MEDS: RESP: TOBRAMYCIN SULFATE 300 MG/5 ML NEB NEB SCH ×2 (07:52→20:46)
[2016-09-26] MEDS: RESP: ALBUTEROL 2.5 MG/3 ML NEB (PRN) INH (07:52)
[2016-09-26] MEDS: CHLORHEXIDINE 0.12% (ORAL KIT) 15 ML CUP MT SCH ×2 (08:18→20:00)
[2016-09-26] MEDS: SODIUM CHLORIDE 0.9% FLUSH 10 ML FLUSH IV FLUSH SCH (09:00)
[2016-09-26] MEDS: PANTOPRAZOLE SODIUM 40 MG VIAL IV SCH (09:25)
[2016-09-26] MEDS: DOCUSATE SODIUM 50 MG/SENNA 8.6 MG TAB PO SCH ×2 (09:26→19:47)
[2016-09-26] MEDS: BISACODYL 10 MG SUPP RECTAL SCH (09:26)
[2016-09-26] MEDS: amLODIPine BESYLATE 5 MG TAB PO SCH (09:26)
[2016-09-26] MEDS: SODIUM CHLORIDE 0.9% FLUSH 10 ML FLUSH SCH ×2 (09:27→20:26)
[2016-09-26] MEDS: HYOSCYAMINE SOLN 0.125 MG/ML 15 ML BTL PO PRN (12:17)
--- NOTE | 2016-09-26 13:16 | HHI.PR ---
Subjective Remarks More alert today. Decreased secretions with Levsin. No other acute changes. Objective Vital Signs Date Time Temp Pulse Resp B/P Pulse Ox O2 Delivery O2 Flow Rate FiO2 09/26/16 12:00 108 09/26/16 12:00 99.1 108 22 143/98 95 09/26/16 10:00 104 09/26/16 08:00 98.8 93 20 108/76 94 09/26/16 08:00 93 09/26/16 07:55 97 T-piece 6.00 28 09/26/16 07:00 94 T-Piece 28 09/26/16 06:00 111 09/26/16 05:16 18 09/26/16 04:00 117 09/26/16 04:00 99.1 115 18 117/72 99 09/26/16 02:00 121 09/26/16 00:00 98.8 118 18 128/77 99 09/26/16 00:00 117 09/25/16 20:00 110 09/25/16 20:00 98.9 120 30 145/84 99 09/25/16 20:00 98 T-piece 28 09/25/16 19:00 99 T-Piece 28 09/25/16 18:00 116 09/25/16 16:00 99.2 119 24 129/86 97 09/25/16 16:00 119 09/25/16 14:00 108 I/O 09/25/16 09/25/16 09/25/16 09/26/16 09/26/16 09/26/16 07:00 15:00 23:00 07:00 15:00 23:00 Intake Total 1459 ml 1137 ml 1322 ml 1026 ml Output Total 400 ml 1550 ml 1400 ml 450 ml 0 ml Balance 1059 ml -413 ml -78 ml 576 ml 0 ml Intake IV Total 879 ml 777 ml 787 ml 795 ml Tube Feeding 520 ml 240 ml 435 ml 231 ml Other 60 ml 120 ml 100 ml Output Urine Total 400 ml 1350 ml 1200 ml 450 ml Emesis 200 ml 200 ml Tube Feeding Residual Discard 0 ml 0 ml 0 ml 0 ml # Bowel Movements 0 3 1 Result Diagram: 09/24/16 04309/24/16 0431 Objective Remarks GENERAL: NAD, A&Ox3, unable to talk due to trache, but can communicate SKIN: Warm and dry. HEAD: Normocephalic. EYES: No scleral icterus. No injection or drainage. NECK: Supple, trachea midline. No JVD or lymphadenopathy. Midline Tracheostomy. CARDIOVASCULAR: Regular rate and rhythm without murmurs, gallops, or rubs. RESPIRATORY: Breath sounds equal bilaterally. No accessory muscle use. GASTROINTESTINAL: Abdomen soft, non-tender, nondistended. MUSCULOSKELETAL: No cyanosis, or edema. BACK: Nontender without obvious deformity. No CVA tenderness. A/P Problem List: (1) HCAP (healthcare-associated pneumonia) ICD Code: J18.9 (2) Cerebellar hemorrhage, acute ICD Code: I61.4 (3) Left hemiparesis ICD Code: G81.94 (4) Spontaneous intraparenchymal intracranial hemorrhage, acute ICD Code: I62.9 (5) Malignant hypertension ICD Code: I10 Assessment and Plan Assessment and Plan 40 year old male admitted with a right cerebellar ICH. Status post craniectomy 09/01. Continue suction as needed. Levsin has had benefit. Continue occupational therapy, speech therapy, and physical therapy. If secretions and emesis remained stable patient will be stable for transfer out of ICU soon. Status Post Acute right cerebellar hemorrhage L hemiparesis Status post suboccipital craniectomy with cerebellar hemorrhage evacuation and ventriculostomy on 09/01/16 Zyprexa continued Oxycodone continued Follow for fevers or hypothermia PT, OT, ST Acute hypoxic and hypercarbic respiratory failure Aspiration Scheduled DuoNeb PRN Albuterol Enterobacter, Klebsiella in sputum, now Enterobacter is resistant to Rocephin. cefepime 2gm iv q8h started 09/15/16, for resistant enterobacter Pulmonary Toilet and tracheostomy care Trach management per pulmonology Malignant Hypertension Sinus tachycardia Continue Labetalol and hydralazine prn SBP <150. Continue Lopressor 5mg iv q4h prn for HR > 90. Continue Propranolol 20mg po q8h for tachycardia and agitation. Continue Norvasc 5 daily Elevated liver enzymes Improving through time Follow LFTs Hypokalemia Monitor Replace as needed DVT Prophylaxis Lovenox, SCDs GI Prophylaxis Protonix Lines: PICC line Tera Mcmahan MD Sep 26, 2016 13:16
[2016-09-26 13:54] LABS: HEMATOCRIT 32.5 % (39.0-51.0); MEAN CELL VOLUME 82.8 FL (80.0-100.0); MEAN CORPUSCULAR HEMOGLOBIN 27.5 PG (27.0-34.0); MEAN CORPUSCULAR HGB CONC 33.2 % (32.0-36.0); PLATELET COUNT 402 TH/MM3 (150-450); RED BLOOD COUNT 3.93 MIL/MM3 (4.50-5.90); REVIEW FLAG FINAL; WHITE BLOOD COUNT 14.9 TH/MM3 (4.0-11.0)
[2016-09-26 14:12] LABS: BICARBONATE 26.1 MEQ/L (21.0-32.0); POTASSIUM 3.7 MEQ/L (3.5-5.1)
[2016-09-26] MEDS: ENOXAPARIN SODIUM 40 MG/0.4 ML SYRINGE SQ SCH (16:01)
--- NOTE | 2016-09-26 18:32 | HHI.PR ---
Subjective Remarks ASS NO DISTRESS TRACH [place] Objective Vital Signs Date Time Temp Pulse Resp B/P Pulse Ox O2 Delivery O2 Flow Rate FiO2 09/26/16 18:00 106 09/26/16 16:00 115 09/26/16 16:00 98.8 115 18 135/83 100 09/26/16 14:00 114 09/26/16 12:00 108 09/26/16 12:00 99.1 108 22 143/98 95 09/26/16 10:00 104 09/26/16 08:00 98.8 93 20 108/76 94 09/26/16 08:00 93 09/26/16 07:55 97 T-piece 6.00 28 09/26/16 07:00 94 T-Piece 28 09/26/16 06:00 111 09/26/16 05:16 18 09/26/16 04:00 117 09/26/16 04:00 99.1 115 18 117/72 99 09/26/16 02:00 121 09/26/16 00:00 98.8 118 18 128/77 99 09/26/16 00:00 117 09/25/16 20:00 110 09/25/16 20:00 98.9 120 30 145/84 99 09/25/16 20:00 98 T-piece 28 09/25/16 19:00 99 T-Piece 28 I/O 09/25/16 09/25/16 09/25/16 09/26/16 09/26/16 09/26/16 07:00 15:00 23:00 07:00 15:00 23:00 Intake Total 1459 ml 1137 ml 1322 ml 1026 ml 1272 ml Output Total 400 ml 1550 ml 1400 ml 450 ml 1200 ml 0 ml Balance 1059 ml -413 ml -78 ml 576 ml 72 ml 0 ml Intake IV Total 879 ml 777 ml 787 ml 795 ml 805 ml Tube Feeding 520 ml 240 ml 435 ml 231 ml 347 ml Other 60 ml 120 ml 100 ml 120 ml Output Urine Total 400 ml 1350 ml 1200 ml 450 ml 1100 ml Emesis 200 ml 200 ml 100 ml Tube Feeding Residual Discard 0 ml 0 ml 0 ml 0 ml 0 ml # Bowel Movements 0 3 1 0 Result Diagram: 09/26/16 1333 09/26/16 1333 Objective Remarks GENERAL: SKIN: Warm and dry. HEAD: Atraumatic. Normocephalic. EYES: Pupils equal and round. No scleral icterus. No injection or drainage. ENT: No nasal bleeding or discharge. Mucous membranes pink and moist. NECK: Tracheostomy in place CARDIOVASCULAR: Regular rate and rhythm. RESPIRATORY: No accessory muscle use. Clear to auscultation. Breath sounds equal bilaterally. GASTROINTESTINAL: Abdomen soft, non-tender, nondistended. Hepatic and splenic margins not palpable. MUSCULOSKELETAL: Extremities without clubbing, cyanosis, or edema. No obvious deformities. NEUROLOGICAL: Awake and alert. No obvious cranial nerve deficits. Motor grossly within normal limits. Five out of 5 muscle strength in the arms and legs. Normal speech. PSYCHIATRIC: Appropriate mood and affect; insight and judgment normal. Assessment and Plan Assessment and Plan ass respiratory failure IC bleed PLAN o2 as needed pulm. toilet Reed Mcbride MD Sep 26, 2016 18:32
[2016-09-26] MEDS: HALOPERIDOL LACTATE 5 MG/ML AMP IV PUSH PRN (20:26)
[2016-09-27] VITALS (9 sets, daily range): BP systolic 112–144; BP diastolic 71–97; PULSE 10–112; RESP 12–21; TEMP 98.7–99.2; O2SAT 96–100
[2016-09-27] MEDS: oxyCODONE HCL ORAL CONC 20 MG/ML SYRINGE PO SCH ×7 (00:10→23:29)
[2016-09-27] MEDS: DILTIAZEM HCL 30 MG TAB PO SCH ×5 (00:10→23:40)
[2016-09-27] MEDS: HYDROmorphone HCL PF 1 MG/ML VIAL IV PUSH PRN ×3 (01:37→15:05)
[2016-09-27] MEDS: SODIUM CHLOR 0.9% 1000 ML INJ 1,000 ML IV SCH ×2 (03:00→11:16)
[2016-09-27] MEDS: CHLORHEXIDINE GLUCONATE 2 % 1 PACK (2 CLOTHS) TOP SCH (04:00)
[2016-09-27] MEDS: OLANZapine ODT 10 MG TAB PO SCH ×3 (05:55→20:27)
[2016-09-27] MEDS: HALOPERIDOL LACTATE 5 MG/ML AMP IV PUSH PRN ×3 (05:55→21:42)
[2016-09-27] MEDS: PROPRANOLOL HCL 20 MG TAB PO SCH ×3 (05:55→21:38)
[2016-09-27] MEDS: METOCLOPRAMIDE HCL SYRUP 10 MG/10 ML UDC PO SCH ×4 (05:56→20:25)
[2016-09-27 06:43] LABS: HEMATOCRIT 34.4 % (39.0-51.0); MEAN CORPUSCULAR HEMOGLOBIN 27.1 PG (27.0-34.0); MEAN CORPUSCULAR HGB CONC 32.6 % (32.0-36.0); PLATELET COUNT 395 TH/MM3 (150-450); RED BLOOD COUNT 4.14 MIL/MM3 (4.50-5.90); RED CELL DISTRIBUTION WIDTH 14.8 % (11.6-17.2); REVIEW FLAG FINAL; WHITE BLOOD COUNT 10.4 TH/MM3 (4.0-11.0)
[2016-09-27 06:53] LABS: ALT (GPT) 154 U/L (12-78); ANION GAP 7 MEQ/L (5-15); AST (GOT) 102 U/L (15-37); BICARBONATE 29.8 MEQ/L (21.0-32.0); BLOOD UREA NITROGEN 15 MG/DL (7-18); CHLORIDE 101 MEQ/L (98-107); GLOMERULAR FILTRATION RATE 100 ML/MIN (>89); POTASSIUM 3.8 MEQ/L (3.5-5.1); SODIUM (NA) 138 MEQ/L (136-145)
[2016-09-27 06:56] LABS: ALKALINE PHOSPHATASE 311 U/L (45-117); TOTAL BILIRUBIN ADULT 0.5 MG/DL (0.2-1.0)
[2016-09-27] MEDS: PANTOPRAZOLE SODIUM 40 MG VIAL IV SCH (08:10)
[2016-09-27] MEDS: CHLORHEXIDINE 0.12% (ORAL KIT) 15 ML CUP MT SCH ×2 (08:11→20:27)
[2016-09-27] MEDS: amLODIPine BESYLATE 5 MG TAB PO SCH (08:12)
[2016-09-27] MEDS: SODIUM CHLORIDE 0.9% FLUSH 10 ML FLUSH IV FLUSH SCH (08:12)
[2016-09-27] MEDS: DOCUSATE SODIUM 50 MG/SENNA 8.6 MG TAB PO SCH ×2 (08:12→21:38)
[2016-09-27] MEDS: SODIUM CHLORIDE 0.9% FLUSH 10 ML FLUSH SCH ×2 (08:12→20:27)
[2016-09-27] MEDS: BISACODYL 10 MG SUPP RECTAL SCH (08:12)
[2016-09-27] MEDS: RESP: ALBUTEROL 2.5 MG/3 ML NEB (PRN) INH (10:36)
[2016-09-27] MEDS: RESP: TOBRAMYCIN SULFATE 300 MG/5 ML NEB NEB SCH ×2 (10:36→20:00)
[2016-09-27] MEDS: ONDANSETRON HCL 4 MG/2 ML VIAL IV PUSH PRN (12:06)
--- NOTE | 2016-09-27 13:50 | HHI.PR ---
Subjective Remarks Family present today. Case discussed with family. Better control secretions on Levsin. He still has problems with emesis when being suctioned. Objective Vital Signs Date Time Temp Pulse Resp B/P Pulse Ox O2 Delivery O2 Flow Rate FiO2 09/27/16 12:00 106 09/27/16 09:11 22 09/27/16 08:00 95 09/27/16 08:00 99.1 98 21 112/73 100 09/27/16 07:36 96 T-piece 6.00 09/27/16 07:00 99 T-Piece 5.00 28 09/27/16 04:00 100 T-piece 5.00 28 09/27/16 04:00 101 09/27/16 04:00 99.2 101 20 132/71 100 09/27/16 00:00 104 09/27/16 00:00 99.0 102 16 134/90 96 09/26/16 20:46 96 T-piece 6.00 28 09/26/16 20:00 99.3 106 24 138/84 100 09/26/16 20:00 106 09/26/16 19:00 100 T-Piece 28 09/26/16 18:00 106 09/26/16 16:00 115 09/26/16 16:00 98.8 115 18 135/83 100 09/26/16 14:00 114 I/O 09/26/16 09/26/16 09/26/16 09/27/16 09/27/16 09/27/16 07:00 15:00 23:00 07:00 15:00 23:00 Intake Total 1026 ml 1272 ml 1152 ml 1092 ml Output Total 450 ml 1200 ml 1000 ml 800 ml Balance 576 ml 72 ml 152 ml 292 ml Intake IV Total 795 ml 805 ml 742 ml 760 ml Tube Feeding 231 ml 347 ml 410 ml 332 ml Other 120 ml Output Urine Total 450 ml 1100 ml 1000 ml 800 ml Emesis 100 ml Tube Feeding Residual Discard 0 ml 0 ml 0 ml # Bowel Movements 0 0 0 Result Diagram: 09/27/1659909/27/16 06 Objective Remarks GENERAL: NAD, A&Ox3, unable to talk due to trache, but can communicate SKIN: Warm and dry. HEAD: Normocephalic. EYES: No scleral icterus. No injection or drainage. NECK: Supple, trachea midline. No JVD or lymphadenopathy. Midline Tracheostomy. CARDIOVASCULAR: Regular rate and rhythm without murmurs, gallops, or rubs. RESPIRATORY: Breath sounds equal bilaterally. No accessory muscle use. GASTROINTESTINAL: Abdomen soft, non-tender, nondistended. MUSCULOSKELETAL: No cyanosis, or edema. BACK: Nontender without obvious deformity. No CVA tenderness. A/P Problem List: (1) HCAP (healthcare-associated pneumonia) ICD Code: J18.9 (2) Cerebellar hemorrhage, acute ICD Code: I61.4 (3) Left hemiparesis ICD Code: G81.94 (4) Spontaneous intraparenchymal intracranial hemorrhage, acute ICD Code: I62.9 (5) Malignant hypertension ICD Code: I10 Assessment and Plan Assessment and Plan 40 year old male admitted with a right cerebellar ICH. Status post craniectomy 09/01. Continue suction as needed. Levsin has had benefit. Continue occupational therapy, speech therapy, and physical therapy. Patient has had some movement in the left leg and arm, per family. No respiratory distress today. Status Post Acute right cerebellar hemorrhage L hemiparesis Status post suboccipital craniectomy with cerebellar hemorrhage evacuation and ventriculostomy on 09/01/16 Zyprexa continued Oxycodone continued Follow for fevers or hypothermia PT, OT, ST Acute hypoxic and hypercarbic respiratory failure Aspiration Scheduled DuoNeb PRN Albuterol Enterobacter, Klebsiella in sputum, now Enterobacter is resistant to Rocephin. cefepime 2gm iv q8h started 09/15/16, for resistant enterobacter Pulmonary Toilet and tracheostomy care Trach management per pulmonology Malignant Hypertension Sinus tachycardia Continue Labetalol and hydralazine prn SBP <150. Continue Lopressor 5mg iv q4h prn for HR > 90. Continue Propranolol 20mg po q8h for tachycardia and agitation. Continue Norvasc 5 daily Elevated liver enzymes Improving through time Follow LFTs Hypokalemia Monitor Replace as needed DVT Prophylaxis Lovenox, SCDs GI Prophylaxis Protonix Lines: PICC line Tera Mcmahan MD Sep 27, 2016 13:50
--- NOTE | 2016-09-27 14:21 | HHI.PR ---
Subjective Remarks ASS NO DISTRESS TRACH [place] Objective Vital Signs Date Time Temp Pulse Resp B/P Pulse Ox O2 Delivery O2 Flow Rate FiO2 09/27/16 12:00 106 09/27/16 09:11 22 09/27/16 08:00 95 09/27/16 08:00 99.1 98 21 112/73 100 09/27/16 07:36 96 T-piece 6.00 09/27/16 07:00 99 T-Piece 5.00 28 09/27/16 04:00 100 T-piece 5.00 28 09/27/16 04:00 101 09/27/16 04:00 99.2 101 20 132/71 100 09/27/16 00:00 104 09/27/16 00:00 99.0 102 16 134/90 96 09/26/16 20:46 96 T-piece 6.00 28 09/26/16 20:00 99.3 106 24 138/84 100 09/26/16 20:00 106 09/26/16 19:00 100 T-Piece 28 09/26/16 18:00 106 09/26/16 16:00 115 09/26/16 16:00 98.8 115 18 135/83 100 I/O 09/26/16 09/26/16 09/26/16 09/27/16 09/27/16 09/27/16 07:00 15:00 23:00 07:00 15:00 23:00 Intake Total 1026 ml 1272 ml 1152 ml 1092 ml Output Total 450 ml 1200 ml 1000 ml 800 ml Balance 576 ml 72 ml 152 ml 292 ml Intake IV Total 795 ml 805 ml 742 ml 760 ml Tube Feeding 231 ml 347 ml 410 ml 332 ml Other 120 ml Output Urine Total 450 ml 1100 ml 1000 ml 800 ml Emesis 100 ml Tube Feeding Residual Discard 0 ml 0 ml 0 ml # Bowel Movements 0 0 0 Result Diagram: 09/27/1659909/27/16 06 Objective Remarks GENERAL: SKIN: Warm and dry. HEAD: Atraumatic. Normocephalic. EYES: Pupils equal and round. No scleral icterus. No injection or drainage. ENT: No nasal bleeding or discharge. Mucous membranes pink and moist. NECK: Tracheostomy in place CARDIOVASCULAR: Regular rate and rhythm. RESPIRATORY: No accessory muscle use. Clear to auscultation. Breath sounds equal bilaterally. GASTROINTESTINAL: Abdomen soft, non-tender, nondistended. Hepatic and splenic margins not palpable. MUSCULOSKELETAL: Extremities without clubbing, cyanosis, or edema. No obvious deformities. NEUROLOGICAL: Awake and alert. No obvious cranial nerve deficits. Motor grossly within normal limits. Five out of 5 muscle strength in the arms and legs. Normal speech. PSYCHIATRIC: Appropriate mood and affect; insight and judgment normal. Assessment and Plan Assessment and Plan ass respiratory failure IC bleed PLAN o2 as needed pulm. toilet Reed Mcbride MD Sep 27, 2016 14:21
[2016-09-27] MEDS: ENOXAPARIN SODIUM 40 MG/0.4 ML SYRINGE SQ SCH (14:35)
[2016-09-27] MEDS: HYOSCYAMINE SOLN 0.125 MG/ML 15 ML BTL PO PRN (20:30)
[2016-09-28] VITALS (10 sets, daily range): BP systolic 131–147; BP diastolic 88–94; PULSE 100–124; RESP 18–28; TEMP 98.1–99.4; O2SAT 94–98
[2016-09-28] MEDS: HALOPERIDOL LACTATE 5 MG/ML AMP IV PUSH PRN ×4 (02:34→22:10)
[2016-09-28] MEDS: CHLORHEXIDINE GLUCONATE 2 % 1 PACK (2 CLOTHS) TOP SCH (04:00)
[2016-09-28] MEDS: OLANZapine ODT 10 MG TAB PO SCH ×3 (04:06→19:57)
[2016-09-28] MEDS: oxyCODONE HCL ORAL CONC 20 MG/ML SYRINGE PO SCH ×6 (04:06→22:24)
[2016-09-28] MEDS: HYOSCYAMINE SOLN 0.125 MG/ML 15 ML BTL PO PRN ×2 (04:07→20:01)
[2016-09-28] MEDS: RESP: ALBUTEROL 2.5 MG/3 ML NEB (PRN) INH (04:13)
[2016-09-28] MEDS: PROPRANOLOL HCL 20 MG TAB PO SCH ×3 (06:29→22:09)
[2016-09-28] MEDS: METOCLOPRAMIDE HCL SYRUP 10 MG/10 ML UDC PO SCH ×4 (06:29→19:57)
[2016-09-28] MEDS: DILTIAZEM HCL 30 MG TAB PO SCH ×4 (06:29→22:24)
[2016-09-28] MEDS: SODIUM CHLOR 0.9% 1000 ML INJ 1,000 ML IV SCH ×3 (06:29→18:56)
[2016-09-28 07:07] LABS: BASOPHIL # 0.1 TH/MM3 (0-0.2); BASOPHIL % 0.5 % (0.0-2.0); EOSINOPHIL # 0.5 TH/MM3 (0-0.4); EOSINOPHIL % 4.6 % (0.0-4.0); HEMATOCRIT 32.9 % (39.0-51.0); HEMO FLAGS DIFF FINAL; LYMPH % 16.3 % (9.0-44.0); LYMPHOCYTE # 1.7 TH/MM3 (1.0-4.8); MEAN CELL VOLUME 81.8 FL (80.0-100.0); MEAN CORPUSCULAR HEMOGLOBIN 28.3 PG (27.0-34.0); MEAN CORPUSCULAR HGB CONC 34.6 % (32.0-36.0); MONO % 11.6 % (0.0-8.0); PLATELET COUNT 383 TH/MM3 (150-450); RED BLOOD COUNT 4.02 MIL/MM3 (4.50-5.90); RED CELL DISTRIBUTION WIDTH 14.6 % (11.6-17.2); WHITE BLOOD COUNT 10.5 TH/MM3 (4.0-11.0)
[2016-09-28 07:27] LABS: ANION GAP 9 MEQ/L (5-15); AST (GOT) 64 U/L (15-37); BLOOD UREA NITROGEN 13 MG/DL (7-18); CHLORIDE 100 MEQ/L (98-107); GLOMERULAR FILTRATION RATE 98 ML/MIN (>89); POTASSIUM 4.3 MEQ/L (3.5-5.1); SODIUM (NA) 137 MEQ/L (136-145)
[2016-09-28 07:28] LABS: ALT (GPT) 133 U/L (12-78)
[2016-09-28 07:30] LABS: ALKALINE PHOSPHATASE 382 U/L (45-117); TOTAL BILIRUBIN ADULT 0.4 MG/DL (0.2-1.0)
[2016-09-28] MEDS: RESP: TOBRAMYCIN SULFATE 300 MG/5 ML NEB NEB SCH ×2 (08:13→20:23)
[2016-09-28] MEDS: SODIUM CHLORIDE 0.9% FLUSH 10 ML FLUSH IV FLUSH SCH (08:51)
[2016-09-28] MEDS: SODIUM CHLORIDE 0.9% FLUSH 10 ML FLUSH SCH ×2 (08:51→19:57)
[2016-09-28] MEDS: CHLORHEXIDINE 0.12% (ORAL KIT) 15 ML CUP MT SCH ×2 (08:51→20:00)
[2016-09-28] MEDS: BISACODYL 10 MG SUPP RECTAL SCH (08:52)
[2016-09-28] MEDS: amLODIPine BESYLATE 5 MG TAB PO SCH (08:52)
[2016-09-28] MEDS: DOCUSATE SODIUM 50 MG/SENNA 8.6 MG TAB PO SCH ×2 (08:52→19:58)
[2016-09-28] MEDS: PANTOPRAZOLE SODIUM 40 MG VIAL IV SCH (08:52)
--- NOTE | 2016-09-28 10:53 | HHI.PR ---
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 had Emergent CT angiography with status post decompressive Craniectomy 09/02/16, since procedure has been vomiting, status post Tracheostomy placement, Status post PEG tube placement 09/16/16, has increased liver enzyme, new study showed no evidence of acute cholecystitis. seen in his bedroom stable continue working with PT. continue management with clinical field specialist. Objective Vital Signs Date Time Temp Pulse Resp B/P Pulse Ox O2 Delivery O2 Flow Rate FiO2 09/28/16 08:16 98 T-piece 28 09/28/16 08:00 112 09/28/16 08:00 98.5 112 28 136/93 94 09/28/16 07:00 98 T-Piece 28 09/28/16 06:00 106 09/28/16 04:00 98.1 108 20 137/94 95 09/28/16 04:00 108 09/28/16 02:00 100 09/28/16 00:00 104 09/28/16 00:00 98.8 104 18 138/94 97 09/27/16 22:00 108 09/27/16 20:09 98 T-piece 6.00 28 09/27/16 20:00 99.1 110 19 144/97 96 09/27/16 20:00 112 09/27/16 20:00 96 T-Piece 28 09/27/16 16:00 98.7 96 20 115/73 97 09/27/16 16:00 96 09/27/16 15:35 20 09/27/16 15:35 20 09/27/16 12:00 106 09/27/16 12:00 98.9 107 12 140/95 96 I/O 09/27/16 09/27/16 09/27/16 09/28/16 09/28/16 09/28/16 07:00 15:00 23:00 07:00 15:00 23:00 Intake Total 1092 ml 1030 ml 1067 ml 1413 ml Output Total 800 ml 797 ml 400 ml 1000 ml Balance 292 ml 233 ml 667 ml 413 ml Intake Oral 0 ml IV Total 760 ml 797 ml 756 ml 786 ml Tube Feeding 332 ml 203 ml 161 ml 477 ml Tube Irrigant 30 ml Other 150 ml 150 ml Output Urine Total 800 ml 797 ml 400 ml 1000 ml Bladder Scan Volume Amount 329 ml # Bowel Movements 0 0 0 Result Diagram: 09/28/16 0645 09/28/1645 Imaging Last Impressions Hepatobiliary Scan Nuclear Medicine 09/20/16 0000 Signed Impressions: Service Date/Time: Tuesday, September 20, 2016 09:28 - CONCLUSION: Delayed filling of what appears to be a contracted gallbladder suggesting the possibility of gallbladder dysfunction but no acute cholecystitis or cystic/common bile duct obstruction. Al Wong MD Liver Ultrasound 09/18/16 0000 Signed Impressions: Service Date/Time: Sunday, September 18, 2016 08:42 - CONCLUSION: Minimal sludge in the gallbladder with gallbladder wall thickening. The patient does not appear to be tender over the gallbladder. Champ Pascal MD FACR Chest X-Ray 09/17/16599 Signed Impressions: Service Date/Time: September 04:47 - CONCLUSION: Bibasilar infiltrates right greater left. A tracheostomy tube in good position. PICC line in good position. Keith Malave MD Gastrostomy Tube Placement 09/16/16 0000 Signed Impressions: Service Date/Time: Friday, September 16, 2016 11:10 - CONCLUSION: Uncomplicated gastrostomy tube placement as above. Shady Shelby MD Abdomen X-Ray 09/10/16 0000 Signed Impressions: Service Date/Time: September 06:34 - CONCLUSION: Feeding tube tip in the stomach Al Hernandez MD Head CT 09/07/16599 Signed Impressions: Service Date/Time: Wednesday, September 07, 2016 06:05 - CONCLUSION: Stable brain appearance. Al Hernandez MD Neck CTA 09/01/162019 Signed Impressions: Service Date/Time: Thursday, September 01, 2016 20:55 - CONCLUSION: Unremarkable exam. The carotid arteries are intact. Ag Saxena MD Head CTA 09/01/162019 Signed Impressions: Service Date/Time: Thursday, September 01, 2016 20:55 - CONCLUSION: The etiology of the patient's right cerebellar h hemorrhage is not identified and there appears to be some infiltrates and possible pleural effusions in the upper lungs that are visualized. Erika Bob MD Procedures Endotracheal Intubation Decompressive Craniectomy 09/02/16 PEG tube placement 09/16/16 Other Results Laboratory Tests Test 09/28/16 06:45 White Blood Count 10.5 TH/MM3 Red Blood Count 4.02 MIL/MM3 Hemoglobin 11.4 GM/DL Hematocrit 32.9 % Mean Corpuscular Volume 81.8 FL Mean Corpuscular Hemoglobin 28.3 PG Mean Corpuscular Hemoglobin 34.6 % Concent Red Cell Distribution Width 14.6 % Platelet Count 383 TH/MM3 Mean Platelet Volume 9.1 FL Neutrophils (%) (Auto) 67.0 % Lymphocytes (%) (Auto) 16.3 % Monocytes (%) (Auto) 11.6 % Eosinophils (%) (Auto) 4.6 % Basophils (%) (Auto) 0.5 % Neutrophils # (Auto) 7.0 TH/MM3 Lymphocytes # (Auto) 1.7 TH/MM3 Monocytes # (Auto) 1.2 TH/MM3 Eosinophils # (Auto) 0.5 TH/MM3 Basophils # (Auto) 0.1 TH/MM3 CBC Comment DIFF FINAL Differential Comment Sodium Level 137 MEQ/L Potassium Level 4.3 MEQ/L Chloride Level 100 MEQ/L Carbon Dioxide Level 28.0 MEQ/L Anion Gap 9 MEQ/L Blood Urea Nitrogen 13 MG/DL Creatinine 1.03 MG/DL Estimat Glomerular Filtration 98 ML/MIN Rate Random Glucose 121 MG/DL Calcium Level 8.4 MG/DL Total Bilirubin 0.4 MG/DL Aspartate Amino Transf 64 U/L (AST/SGOT) Alanine Aminotransferase 133 U/L (ALT/SGPT) Alkaline Phosphatase 382 U/L Total Protein 8.1 GM/DL Albumin 2.4 GM/DL Objective Remarks GENERAL: NAD, A&Ox3, unable to talk due to trache, but can communicate SKIN: Warm and dry. HEAD: Normocephalic. EYES: No scleral icterus. No injection or drainage. NECK: Supple, trachea midline. No JVD or lymphadenopathy. Midline Tracheostomy. CARDIOVASCULAR: Regular rate and rhythm without murmurs, gallops, or rubs. RESPIRATORY: Breath sounds equal bilaterally. No accessory muscle use. GASTROINTESTINAL: Abdomen soft, non-tender, nondistended. MUSCULOSKELETAL: No cyanosis, or edema. BACK: Nontender without obvious deformity. No CVA tenderness. Medications and IVs Current Medications Medications (Trade) Dose Ordered Sig/Demetris Route Start Time Stop Time Status Last Admin (NS Flush) 2 ml UNSCH PRN .XX 09/01/16 21:00 (NS Flush) 2 ml BID .XX 09/01/16 21:00 09/28/16 08:51 (Protonix Inj) 40 mg DAILY IV 09/02/16 09:00 09/28/16 08:52 Miscellaneous Information 1 Q361D XX 09/01/16 21:00 (Chlorhexidine 2% Cloth) Taper DAILY@04 TOP 09/02/16 04:00 08/29/17 03:59 09/27/16 04:00 Chlorhexidine Gluconate 3 pack 3 pack UNSCH PRN TOP 09/01/16 21:00 Potassium Chloride 100 ml @ 50 mls/hr Q2H PRN IV 09/01/16 21:15 09/02/16 04:54 (KCl 20 Meq Premix Inj) 100 ml @ 50 mls/hr Q2H PRN IV 09/01/16 21:15 Potassium Bicarb/ Potassium Chloride 50 meq 50 meq UNSCH PRN PO 09/01/16 21:15 Potassium Chloride 100 ml @ 25 mls/hr UNSCH PRN IV 09/01/16 21:15 09/23/16 12:30 Potassium Chloride 100 ml @ 50 mls/hr Q2H PRN IV 09/01/16 21:15 (Magnesium Sulfate Inj/NS Inj) 100 ml @ 50 mls/hr UNSCH PRN IV 09/01/16 21:15 Magnesium Oxide 800 mg 800 mg UNSCH PRN PO 09/01/16 21:15 (Magnesium Sulfate Inj/NS Inj) 100 ml @ 50 mls/hr UNSCH PRN IV 09/01/16 21:15 09/02/16 08:18 Potassium Phosphate 2000 mg 2,000 mg Q4H PRN PO 09/01/16 21:15 (Sodium Phosphate Inj/NS 250 ml Inj) 250 ml @ 42 mls/hr UNSCH PRN IV 09/01/16 21:15 09/02/16 08:18 (K-Phos) 2,000 mg UNSCH PRN PO/TUBE 09/01/16 21:15 (D50w (Vial) Inj) 50 ml UNSCH PRN IV 09/01/16 21:15 (Glucagon Inj) 1 mg UNSCH PRN OTHER 09/01/16 21:15 (Peridex 0.12% Liq) 15 ml BID@08,20 MT 09/02/16 08:00 09/28/16 08:51 (Trandate Inj) 10 mg Q4H PRN IV PUSH 09/02/16 00:45 09/19/16 12:25 (Ofirmev Inj) 1,000 mg Q6H PRN IV 09/02/16 01:00 09/24/16 00:22 (Zofran Inj) 4 mg Q6HR PRN IV PUSH 09/02/16 01:00 09/27/16 12:06 (Reglan Liq) 10 mg ACHS PO 09/03/16 11:00 09/28/16 10:38 (Dulcolax Supp) 10 mg DAILY RECTAL 09/04/16 09:00 09/28/16 08:52 (Tania-Colace) 1 tab BID PO 09/03/16 09:45 09/28/16 08:52 (Lopressor Inj) 5 mg Q4H PRN IV PUSH 09/06/16 10:15 09/24/16 15:35 (NS Flush) See Protocol DAILY IV FLUSH 09/11/16 09:00 09/28/16 08:51 (NS Flush) See Protocol UNSCH PRN IV FLUSH 09/10/16 14:45 (Heparin Central Flush) See Protocol DAILY IV FLUSH 09/11/16 09:00 09/28/16 08:52 (Heparin Central Flush) See Protocol UNSCH PRN IV FLUSH 09/10/16 14:45 09/14/16 05:40 (NS Flush) UNSCH PRN IV FLUSH 09/10/16 14:45 (Thorazine Inj) 25 mg Q4H PRN IM 09/12/16 09:30 09/13/16 19:50 (Lopressor) 50 mg Q12HR PO 09/13/16 09:15 Hold 09/14/16 20:56 (Norvasc) 5 mg DAILY PO 09/13/16 09:15 09/28/16 08:52 (Haldol Inj) 5 mg Q4H PRN IV PUSH 09/14/16 10:45 09/28/16 09:46 (ZyPREXA ZYDIS ODT) 10 mg Q8H PO 09/14/16 12:00 09/28/16 04:06 (Dilaudid Pf Inj) 0.5 mg Q4H PRN IV PUSH 09/14/16 10:45 09/27/16 15:05 (Roxicodone Intensol Liq) 10 mg Q4H PO 09/14/16 11:00 09/28/16 10:38 (Inderal) 20 mg Q8HR PO 09/15/16 06:23 09/28/16 06:29 (Transderm-Scop 1.5 Mg Patch.72 Hr) 1 patch Q3D T-DERMAL 09/19/16 12:00 09/25/16 11:05 Miscellaneous Information 1 Q3D T-DERMAL 09/22/16 12:00 09/25/16 11:17 Enoxaparin Sodium 40 mg 40 mg Q24H SQ 09/21/16 14:00 09/27/16 14:35 (NS 1000 ml Inj) 1,000 ml @ 100 mls/hr Q10H IV 09/24/16 15:00 09/28/16 08:53 (Levsin Liq) 0.125 mg Q4H PRN PO 09/25/16 12:30 09/28/16 04:07 (Cardizem) 30 mg Q6HR PO 09/25/16 18:00 09/28/16 06:29 A/P Assessment and Plan 40 year old male admitted with a right cerebellar ICH. Status post craniectomy 09/01. Continue suction as needed. Levsin has had benefit. Continue occupational therapy, speech therapy, and physical therapy. Patient has had some movement in the left leg and arm, per family. No respiratory distress today. Status Post Acute right cerebellar hemorrhage L hemiparesis Status post suboccipital craniectomy with cerebellar hemorrhage evacuation and ventriculostomy on 09/01/16 Zyprexa continued Oxycodone continued Follow for fevers or hypothermia PT, OT, ST Acute hypoxic and hypercarbic respiratory failure Aspiration Scheduled DuoNeb PRN Albuterol Enterobacter, Klebsiella in sputum, now Enterobacter is resistant to Rocephin. cefepime 2gm iv q8h started 09/15/16, for resistant Enterobacter Pulmonary Toilet and tracheostomy care Trach management per pulmonology Malignant Hypertension Sinus tachycardia Continue Labetalol and hydralazine prn SBP <150. Continue Lopressor 5mg iv q4h prn for HR > 90. Continue Propranolol 20mg po q8h for tachycardia and agitation. Continue Norvasc 5 daily Elevated liver enzymes Improving through time Follow LFTs DVT Prophylaxis Lovenox, SCDs GI Prophylaxis Protonix Lines: PICC line Discharge Planning Not yet cleared for discharge. Martínez Bauer MD Sep 28, 2016 10:52
[2016-09-28] MEDS: REMOVE OLD SCOPOLAMINE PATCH T-DERMAL SCH (12:00)
[2016-09-28] MEDS: SCOPOLAMINE 1.5 MG PATCH T-DERMAL SCH (12:49)
[2016-09-28] MEDS: ENOXAPARIN SODIUM 40 MG/0.4 ML SYRINGE SQ SCH (14:25)
--- NOTE | 2016-09-28 16:07 | HHI.PR ---
Subjective Remarks ASS NO DISTRESS TRACH OK Objective Vital Signs Date Time Temp Pulse Resp B/P Pulse Ox O2 Delivery O2 Flow Rate FiO2 09/28/16 12:00 120 09/28/16 12:00 99.3 120 25 134/91 96 09/28/16 08:16 98 T-piece 28 09/28/16 08:00 112 09/28/16 08:00 98.5 112 28 136/93 94 09/28/16 07:00 98 T-Piece 28 09/28/16 06:00 106 09/28/16 04:00 98.1 108 20 137/94 95 09/28/16 04:00 108 09/28/16 02:00 100 09/28/16 00:00 104 09/28/16 00:00 98.8 104 18 138/94 97 09/27/16 22:00 108 09/27/16 20:09 98 T-piece 6.00 28 09/27/16 20:00 99.1 110 19 144/97 96 09/27/16 20:00 112 09/27/16 20:00 96 T-Piece 28 I/O 09/27/16 09/27/16 09/27/16 09/28/16 09/28/16 09/28/16 07:00 15:00 23:00 07:00 15:00 23:00 Intake Total 1092 ml 1030 ml 1067 ml 1413 ml 1343 ml Output Total 800 ml 797 ml 400 ml 1000 ml 2500 ml Balance 292 ml 233 ml 667 ml 413 ml -1157 ml Intake Oral 0 ml IV Total 760 ml 797 ml 756 ml 786 ml 869 ml Tube Feeding 332 ml 203 ml 161 ml 477 ml 384 ml Tube Irrigant 30 ml Other 150 ml 150 ml 90 ml Output Urine Total 800 ml 797 ml 400 ml 1000 ml 2500 ml Bladder Scan Volume Amount 329 ml # Bowel Movements 0 0 0 0 Result Diagram: 09/28/16 0645 09/28/16 0645 Procedures Endotracheal Intubation Decompressive Craniectomy 09/02/16 PEG tube placement 09/16/16 Objective Remarks GENERAL: SKIN: Warm and dry. HEAD: Atraumatic. Normocephalic. EYES: Pupils equal and round. No scleral icterus. No injection or drainage. ENT: No nasal bleeding or discharge. Mucous membranes pink and moist. NECK: Tracheostomy in place CARDIOVASCULAR: Regular rate and rhythm. RESPIRATORY: No accessory muscle use. Clear to auscultation. Breath sounds equal bilaterally. GASTROINTESTINAL: Abdomen soft, non-tender, nondistended. Hepatic and splenic margins not palpable. MUSCULOSKELETAL: Extremities without clubbing, cyanosis, or edema. No obvious deformities. NEUROLOGICAL: Awake and alert. No obvious cranial nerve deficits. Motor grossly within normal limits. Five out of 5 muscle strength in the arms and legs. Normal speech. PSYCHIATRIC: Appropriate mood and affect; insight and judgment normal. Assessment and Plan Assessment and Plan ass respiratory failure IC bleed PLAN o2 as needed pulm. toilet CHANGE TRACH TO FENESTRATED CUFFLESS Reed Mcbride MD Sep 28, 2016 16:07
[2016-09-29] VITALS (8 sets, daily range): BP systolic 117–147; BP diastolic 74–90; PULSE 98–110; RESP 17–20; TEMP 98–99.1; O2SAT 96–100
[2016-09-29] MEDS: OLANZapine ODT 10 MG TAB PO SCH ×3 (03:01→19:51)
[2016-09-29] MEDS: oxyCODONE HCL ORAL CONC 20 MG/ML SYRINGE PO SCH ×6 (03:02→22:06)
[2016-09-29] MEDS: HALOPERIDOL LACTATE 5 MG/ML AMP IV PUSH PRN ×2 (03:16→09:07)
[2016-09-29] MEDS: RESP: ALBUTEROL 2.5 MG/3 ML NEB (PRN) INH (03:27)
[2016-09-29] MEDS: CHLORHEXIDINE GLUCONATE 2 % 1 PACK (2 CLOTHS) TOP SCH (04:00)
[2016-09-29] MEDS: SODIUM CHLOR 0.9% 1000 ML INJ 1,000 ML IV SCH ×2 (05:00→15:00)
[2016-09-29] MEDS: PROPRANOLOL HCL 20 MG TAB PO SCH ×3 (06:20→22:07)
[2016-09-29] MEDS: METOCLOPRAMIDE HCL SYRUP 10 MG/10 ML UDC PO SCH ×4 (06:20→22:07)
[2016-09-29] MEDS: DILTIAZEM HCL 30 MG TAB PO SCH ×3 (06:20→18:00)
[2016-09-29] MEDS: CHLORHEXIDINE 0.12% (ORAL KIT) 15 ML CUP MT SCH ×2 (08:00→20:00)
[2016-09-29] MEDS: RESP: TOBRAMYCIN SULFATE 300 MG/5 ML NEB NEB SCH ×2 (08:12→20:34)
[2016-09-29] MEDS: DOCUSATE SODIUM 50 MG/SENNA 8.6 MG TAB PO SCH ×2 (09:00→22:07)
[2016-09-29] MEDS: BISACODYL 10 MG SUPP RECTAL SCH (09:00)
[2016-09-29] MEDS: PANTOPRAZOLE SODIUM 40 MG VIAL IV SCH (09:06)
[2016-09-29] MEDS: amLODIPine BESYLATE 5 MG TAB PO SCH (09:07)
[2016-09-29] MEDS: SODIUM CHLORIDE 0.9% FLUSH 10 ML FLUSH SCH ×2 (09:08→22:07)
[2016-09-29] MEDS: SODIUM CHLORIDE 0.9% FLUSH 10 ML FLUSH IV FLUSH SCH (09:08)
--- NOTE | 2016-09-29 14:14 | HHI.PR ---
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 had Emergent CT angiography with status post decompressive Craniectomy 09/02/16, since procedure has been vomiting, status post Tracheostomy placement, Status post PEG tube placement 09/16/16, has increased liver enzyme, new study showed no evidence of acute cholecystitis. 09/29: stable in his bedroom has strong movements on the Right hemibody at this time with his uncle he looks to understand when he talks with him and show some pictures, continue slowly improving. tracheostomy management as per medical reception specialist, no nausea, vomit or diarrhea discussed with nurse Miss Brittany marquez. Objective Vital Signs Date Time Temp Pulse Resp B/P Pulse Ox O2 Delivery O2 Flow Rate FiO2 09/29/16 12:00 98.2 110 20 117/82 100 09/29/16 12:00 110 09/29/16 08:17 100 T-piece 28 09/29/16 08:00 98.6 103 20 138/86 100 09/29/16 08:00 103 09/29/16 07:45 18 09/29/16 07:00 100 T-Piece 28 09/29/16 04:00 98.6 106 18 130/74 96 09/29/16 00:00 98.0 100 18 147/88 97 09/28/16 20:23 98 T-piece 28 09/28/16 20:00 97 T-Piece 28 09/28/16 20:00 98.6 124 19 147/88 94 09/28/16 16:00 99.4 104 18 131/92 98 09/28/16 16:00 107 I/O 09/28/16 09/28/16 09/28/16 09/29/16 09/29/16 09/29/16 07:00 15:00 23:00 07:00 15:00 23:00 Intake Total 1413 ml 1343 ml 990 ml 1580 ml Output Total 1000 ml 2500 ml 950 ml 700 ml Balance 413 ml -1157 ml 40 ml 880 ml IV Total 786 ml 869 ml 410 ml 1030 ml Tube Feeding 477 ml 384 ml 380 ml 350 ml Other 150 ml 90 ml 200 ml 200 ml Output Urine Total 1000 ml 2500 ml 950 ml 700 ml # Bowel Movements 0 0 0 Result Diagram: 09/28/1664409/28/16644 Imaging Last Impressions Hepatobiliary Scan Nuclear Medicine 09/20/16 Signed Impressions: Service Date/Time: Tuesday, September 20, 2016 09:28 - CONCLUSION: Delayed filling of what appears to be a contracted gallbladder suggesting the possibility of gallbladder dysfunction but no acute cholecystitis or cystic/common bile duct obstruction. Al Wong MD Liver Ultrasound 09/18/16 Signed Impressions: Service Date/Time: Sunday, September 18, 2016 08:42 - CONCLUSION: Minimal sludge in the gallbladder with gallbladder wall thickening. The patient does not appear to be tender over the gallbladder. Champ Pascal MD FACR Chest X-Ray 09/17/16599 Signed Impressions: Service Date/Time: September 04:47 - CONCLUSION: Bibasilar infiltrates right greater left. A tracheostomy tube in good position. PICC line in good position. Keith Malave MD Gastrostomy Tube Placement 09/16/16 Signed Impressions: Service Date/Time: Friday, September 16, 2016 11:10 - CONCLUSION: Uncomplicated gastrostomy tube placement as above. Shady Shelby MD Abdomen X-Ray 09/10/16 Signed Impressions: Service Date/Time: September 06:34 - CONCLUSION: Feeding tube tip in the stomach Al Hernandez MD Head CT 09/07/16599 Signed Impressions: Service Date/Time: Wednesday, September 07, 2016 06:05 - CONCLUSION: Stable brain appearance. Al Hernandez MD Neck CTA 09/01/162019 Signed Impressions: Service Date/Time: Thursday, September 01, 2016 20:55 - CONCLUSION: Unremarkable exam. The carotid arteries are intact. Ag Saxena MD Head CTA 09/01/162019 Signed Impressions: Service Date/Time: Thursday, September 01, 2016 20:55 - CONCLUSION: The etiology of the patient's right cerebellar h hemorrhage is not identified and there appears to be some infiltrates and possible pleural effusions in the upper lungs that are visualized. Erika Bob MD Procedures Endotracheal Intubation Decompressive Craniectomy 09/02/16 PEG tube placement 09/16/16 Other Results Laboratory Tests Test 09/28/16 06:45 White Blood Count 10.5 TH/MM3 Red Blood Count 4.02 MIL/MM3 Hemoglobin 11.4 GM/DL Hematocrit 32.9 % Mean Corpuscular Volume 81.8 FL Mean Corpuscular Hemoglobin 28.3 PG Mean Corpuscular Hemoglobin 34.6 % Concent Red Cell Distribution Width 14.6 % Platelet Count 383 TH/MM3 Mean Platelet Volume 9.1 FL Neutrophils (%) (Auto) 67.0 % Lymphocytes (%) (Auto) 16.3 % Monocytes (%) (Auto) 11.6 % Eosinophils (%) (Auto) 4.6 % Basophils (%) (Auto) 0.5 % Neutrophils # (Auto) 7.0 TH/MM3 Lymphocytes # (Auto) 1.7 TH/MM3 Monocytes # (Auto) 1.2 TH/MM3 Eosinophils # (Auto) 0.5 TH/MM3 Basophils # (Auto) 0.1 TH/MM3 CBC Comment DIFF FINAL Differential Comment Sodium Level 137 MEQ/L Potassium Level 4.3 MEQ/L Chloride Level 100 MEQ/L Carbon Dioxide Level 28.0 MEQ/L Anion Gap 9 MEQ/L Blood Urea Nitrogen 13 MG/DL Creatinine 1.03 MG/DL Estimat Glomerular Filtration 98 ML/MIN Rate Random Glucose 121 MG/DL Calcium Level 8.4 MG/DL Total Bilirubin 0.4 MG/DL Aspartate Amino Transf 64 U/L (AST/SGOT) Alanine Aminotransferase 133 U/L (ALT/SGPT) Alkaline Phosphatase 382 U/L Total Protein 8.1 GM/DL Albumin 2.4 GM/DL Objective Remarks GENERAL: NAD, A&Ox3, unable to talk due to trache, but can communicate SKIN: Warm and dry. HEAD: Normocephalic. EYES: No scleral icterus. No injection or drainage. NECK: Supple, trachea midline. No JVD or lymphadenopathy. Midline Tracheostomy. CARDIOVASCULAR: Regular rate and rhythm without murmurs, gallops, or rubs. RESPIRATORY: Breath sounds equal bilaterally. No accessory muscle use. GASTROINTESTINAL: Abdomen soft, non-tender, nondistended. MUSCULOSKELETAL: No cyanosis, or edema. BACK: Nontender without obvious deformity. No CVA tenderness. Medications and IVs Current Medications Medications (Trade) Dose Ordered Sig/Demetris Route Start Time Stop Time Status Last Admin (NS Flush) 2 ml UNSCH PRN .XX 09/01/16 21:00 (NS Flush) 2 ml BID .XX 09/01/16 21:00 09/29/16 09:08 (Protonix Inj) 40 mg DAILY IV 09/02/16 09:00 09/29/16 09:06 Miscellaneous Information 1 Q361D XX 09/01/16 21:00 (Chlorhexidine 2% Cloth) Taper DAILY@04 TOP 09/02/16 04:00 08/29/17 03:59 09/28/16 04:00 Chlorhexidine Gluconate 3 pack 3 pack UNSCH PRN TOP 09/01/16 21:00 Potassium Chloride 100 ml @ 50 mls/hr Q2H PRN IV 09/01/16 21:15 09/02/16 04:54 (KCl 20 Meq Premix Inj) 100 ml @ 50 mls/hr Q2H PRN IV 09/01/16 21:15 Potassium Bicarb/ Potassium Chloride 50 meq 50 meq UNSCH PRN PO 09/01/16 21:15 Potassium Chloride 100 ml @ 25 mls/hr UNSCH PRN IV 09/01/16 21:15 09/23/16 12:30 Potassium Chloride 100 ml @ 50 mls/hr Q2H PRN IV 09/01/16 21:15 (Magnesium Sulfate Inj/NS Inj) 100 ml @ 50 mls/hr UNSCH PRN IV 09/01/16 21:15 Magnesium Oxide 800 mg 800 mg UNSCH PRN PO 09/01/16 21:15 (Magnesium Sulfate Inj/NS Inj) 100 ml @ 50 mls/hr UNSCH PRN IV 09/01/16 21:15 09/02/16 08:18 Potassium Phosphate 2000 mg 2,000 mg Q4H PRN PO 09/01/16 21:15 (Sodium Phosphate Inj/NS 250 ml Inj) 250 ml @ 42 mls/hr UNSCH PRN IV 09/01/16 21:15 09/02/16 08:18 (K-Phos) 2,000 mg UNSCH PRN PO/TUBE 09/01/16 21:15 (D50w (Vial) Inj) 50 ml UNSCH PRN IV 09/01/16 21:15 (Glucagon Inj) 1 mg UNSCH PRN OTHER 09/01/16 21:15 (Peridex 0.12% Liq) 15 ml BID@08,20 MT 09/02/16 08:00 09/29/16 08:00 (Trandate Inj) 10 mg Q4H PRN IV PUSH 09/02/16 00:45 09/19/16 12:25 (Ofirmev Inj) 1,000 mg Q6H PRN IV 09/02/16 01:00 09/24/16 00:22 (Zofran Inj) 4 mg Q6HR PRN IV PUSH 09/02/16 01:00 09/27/16 12:06 (Reglan Liq) 10 mg ACHS PO 09/03/16 11:00 09/29/16 11:32 (Dulcolax Supp) 10 mg DAILY RECTAL 09/04/16 09:00 09/28/16 08:52 (Tania-Colace) 1 tab BID PO 09/03/16 09:45 09/28/16 19:58 (Lopressor Inj) 5 mg Q4H PRN IV PUSH 09/06/16 10:15 09/24/16 15:35 (NS Flush) See Protocol DAILY IV FLUSH 09/11/16 09:00 09/29/16 09:08 (NS Flush) See Protocol UNSCH PRN IV FLUSH 09/10/16 14:45 (Heparin Central Flush) See Protocol DAILY IV FLUSH 09/11/16 09:00 09/29/16 09:06 (Heparin Central Flush) See Protocol UNSCH PRN IV FLUSH 09/10/16 14:45 09/14/16 05:40 (NS Flush) UNSCH PRN IV FLUSH 09/10/16 14:45 (Thorazine Inj) 25 mg Q4H PRN IM 09/12/16 09:30 09/13/16 19:50 (Lopressor) 50 mg Q12HR PO 09/13/16 09:15 Hold 09/14/16 20:56 (Norvasc) 5 mg DAILY PO 09/13/16 09:15 09/29/16 09:07 (Haldol Inj) 5 mg Q4H PRN IV PUSH 09/14/16 10:45 09/29/16 09:07 (ZyPREXA ZYDIS ODT) 10 mg Q8H PO 09/14/16 12:00 09/29/16 11:33 (Dilaudid Pf Inj) 0.5 mg Q4H PRN IV PUSH 09/14/16 10:45 09/27/16 15:05 (Roxicodone Intensol Liq) 10 mg Q4H PO 09/14/16 11:00 09/29/16 11:33 (Inderal) 20 mg Q8HR PO 09/15/16 06:23 09/29/16 06:20 (Transderm-Scop 1.5 Mg Patch.72 Hr) 1 patch Q3D T-DERMAL 09/19/16 12:00 09/28/16 12:49 Miscellaneous Information 1 Q3D T-DERMAL 09/22/16 12:00 09/28/16 12:00 Enoxaparin Sodium 40 mg 40 mg Q24H SQ 09/21/16 14:00 09/28/16 14:25 (NS 1000 ml Inj) 1,000 ml @ 100 mls/hr Q10H IV 09/24/16 15:00 09/29/16 05:00 (Levsin Liq) 0.125 mg Q4H PRN PO 09/25/16 12:30 09/28/16 20:01 (Cardizem) 30 mg Q6HR PO 09/25/16 18:00 09/29/16 11:35 A/P Assessment and Plan 40 year old male admitted with a right cerebellar ICH. Status post craniectomy 09/01. Continue suction as needed. Levsin has had benefit. Continue occupational therapy, speech therapy, and physical therapy. Patient has had some movement in the left leg and arm, per family. No respiratory distress today. Status Post Acute right cerebellar hemorrhage L hemiparesis Status post suboccipital craniectomy with cerebellar hemorrhage evacuation and ventriculostomy on 09/01/16 Zyprexa continued Oxycodone continued Follow for fevers or hypothermia PT, OT, ST strong on the right hemibody, as per nurse he has some movements on the left arm and Leg. Acute hypoxic and hypercarbic respiratory failure Aspiration Scheduled DuoNeb PRN Albuterol Enterobacter, Klebsiella in sputum, now Enterobacter is resistant to Rocephin. cefepime 2gm iv q8h started 09/15/16, for resistant Enterobacter Pulmonary Toilet and tracheostomy care Trach management per pulmonology Malignant Hypertension Sinus tachycardia Continue Labetalol and hydralazine prn SBP <150. Continue Lopressor 5mg iv q4h prn for HR > 90. Continue Propranolol 20mg po q8h for tachycardia and agitation. Continue Norvasc 5 daily Elevated liver enzymes Improving through time Follow LFTs DVT Prophylaxis Lovenox, SCDs GI Prophylaxis Protonix Lines: PICC line Discharge Planning Not yet cleared for discharge. Martínez Bauer MD Sep 29, 2016 14:14
--- NOTE | 2016-09-29 15:47 | HHI.HCPN ---
Reason for visit a. To assist with evaluation and management of symptoms including: Shortness of breath and debility. b. To assist medical decision maker(s) with: better understanding of current medical conditions; weighing benefits/burdens of medical treatment options; making medical treatment decisions. . Subjective/Interval History Palliative care f/u for emotional support, enhance communication and for clarifications of goals of care. Mr. Isabel is a 40-year-old male with no significant past medical history who presented to the ED via EMS on 09/01/16 with large acute high density hemorrhage in the right cerebellar hemisphere with extension into the isaac, 5.3cm x 4.9cm in size. Patient status post decompressive craniectomy. Patient seen in ICU. Awake, alert, following commands. Communicating by mouthing words and using hand gestures. Following commands. Patient denies pain, nausea or abdominal discomfort. Touching his tracheostomy, mouthing "out ". Asked if he was eager to get tracheostomy out, patient nodding head "yes". Reviewed with patient that he still has a long recovery ahead of him but that he has shown remarkable improvement. Reviewed with patient that pulmonology Dr. Mcbride is following, tracheostomy was changed to a fenestrated cuffless on . Patient remains afebrile, tachycardic with heart rate in the low 110s, likely secondary to anxiety/restlessness. Tolerating T-collar. Currently on Levsin for secretions with good effect. Most recent laboratory 09/28/16 revealing WBC 10.5, Hgb 11.4, platelet count 383. Sodium 137, potassium 4.3, BUN/creatinine 24/04/07/13. Liver enzymes remain slightly elevated. Albumin 2.4. No new imaging for review. Patient's uncle Tho at bedside. He reports to patient's son was able to visit him for Father's Day this past Wednesday. Patient's daughter this is still in [place], pending humanitarian visa. Palliative care has provided a letter to patient's daughter for assistance in visa request. Patient's working at this time. Patient and family reminiscent on patient's life, talking about his passion for music and singing. Patient noted with a big smile when his uncle was talking about his love for music. Palliative care has continued to follow-up with family for medical updates, enhance communication and ongoing emotional support. Spiritual services also following. . Family/friend interactions See interval note. . Advance Directives Living Will: Never completed Health Care Surrogate: Never completed Durable Power of Card Services Specialist: Never completed Advance Directive Specifics Health Care Surrogate(s): No living will or healthcare surrogate designation completed. As per [place] law, patient's Jaci Isabel is healthcare proxy. . Documented care wishes: No living will completed. . Significant change in goals: Goals of care remain unchanged. . Objective Vital Signs Date Time Temp Pulse Resp B/P Pulse Ox O2 Delivery O2 Flow Rate FiO2 09/29/16 12:00 98.2 110 20 117/82 100 09/29/16 12:00 110 09/29/16 08:17 100 T-piece 28 09/29/16 08:00 98.6 103 20 138/86 100 09/29/16 08:00 103 09/29/16 07:45 18 09/29/16 07:00 100 T-Piece 28 09/29/16 04:00 98.6 106 18 130/74 96 09/29/16 00:00 98.0 100 18 147/88 97 09/28/16 20:23 98 T-piece 28 09/28/16 20:00 97 T-Piece 28 09/28/16 20:00 98.6 124 19 147/88 94 09/28/16 16:00 99.4 104 18 131/92 98 09/28/16 16:00 107 Intake & Output 09/29/16 09/29/16 07:00 19:00 Intake Total 2570 ml Output Total 1650 ml Balance 920 ml IV Total 1440 ml Tube Feeding 730 ml Other 400 ml Output Urine Total 1650 ml # Bowel Movements 0 Physical Exam CONSTITUTIONAL/GENERAL: This is an adequately nourished patient, in no apparent distress. Currently on T-collar. TUBES/LINES/DRAINS: PIV's, tracheostomy, NG tube, Kumar catheter, SCDs, bilateral soft wrist restraints, PEG tube, rectal tube. SKIN: No jaundice, rashes, or lesions. No wounds seen anteriorly. Skin temperature appropriate. Not diaphoretic. HEAD: Atraumatic. Normocephalic. EYES: No scleral icterus. No injection or drainage. ENT: Normal hearing. Nose without bleeding or purulent drainage. Moist oral mucosa. CARDIOVASCULAR: Tachycardic with heart rate in the low 110s. Regular rhythm. Peripheral pulses symmetric. Warm extremities. RESPIRATORY/CHEST: Symmetric, unlabored respirations. Currently on T-collar. Clear breath sounds. GASTROINTESTINAL: Abdomen soft, round. Bowel sounds present. PEG tube in place. GENITOURINARY: Without palpable bladder distension. Kumar catheter in place. MUSCULOSKELETAL: Extremities without clubbing, cyanosis. No mottling or clubbing. NEUROLOGICAL: Awake, alert. Communicating by mouthing words and hand gestures. Following commands. Engaging in conversation. PSYCHIATRIC: Anxious/restlessness at times. . Diagnostic Tests Laboratory Laboratory Tests Test 09/27/16 09/28/16 06:00 06:45 White Blood Count 10.4 TH/MM3 10.5 TH/MM3 (4.0-11.0) (4.0-11.0) Red Blood Count 4.14 MIL/MM3 4.02 MIL/MM3 (4.50-5.90) (4.50-5.90) Hemoglobin 11.2 GM/DL 11.4 GM/DL (13.0-17.0) (13.0-17.0) Hematocrit 34.4 % 32.9 % (39.0-51.0) (39.0-51.0) Mean Corpuscular Volume 83.0 FL 81.8 FL (80.0-100.0) (80.0-100.0) Mean Corpuscular Hemoglobin 27.1 PG 28.3 PG (27.0-34.0) (27.0-34.0) Mean Corpuscular Hemoglobin 32.6 % 34.6 % Concent (32.0-36.0) (32.0-36.0) Red Cell Distribution Width 14.8 % 14.6 % (11.6-17.2) (11.6-17.2) Platelet Count 395 TH/MM3 383 TH/MM3 (150-450) (150-450) Mean Platelet Volume 9.0 FL 9.1 FL (7.0-11.0) (7.0-11.0) Sodium Level 138 MEQ/L 137 MEQ/L (136-145) (136-145) Potassium Level 3.8 MEQ/L 4.3 MEQ/L (3.5-5.1) (3.5-5.1) Chloride Level 101 MEQ/L 100 MEQ/L (98-107) (98-107) Carbon Dioxide Level 29.8 MEQ/L 28.0 MEQ/L (21.0-32.0) (21.0-32.0) Anion Gap 7 MEQ/L (5-15) 9 MEQ/L (5-15) Blood Urea Nitrogen 15 MG/DL (7-18) 13 MG/DL (7-18) Creatinine 1.01 MG/DL 1.03 MG/DL (0.60-1.30) (0.60-1.30) Estimat Glomerular Filtration 100 ML/MIN 98 ML/MIN (>89) Rate (>89) Random Glucose 96 MG/DL 121 MG/DL (74-106) (74-106) Calcium Level 9.1 MG/DL 8.4 MG/DL (8.5-10.1) (8.5-10.1) Total Bilirubin 0.5 MG/DL 0.4 MG/DL (0.2-1.0) (0.2-1.0) Aspartate Amino Transf 102 U/L (15-37) 64 U/L (15-37) (AST/SGOT) Alanine Aminotransferase 154 U/L (12-78) 133 U/L (12-78) (ALT/SGPT) Alkaline Phosphatase 311 U/L 382 U/L (45-117) (45-117) Total Protein 8.1 GM/DL 8.1 GM/DL (6.4-8.2) (6.4-8.2) Albumin 2.2 GM/DL 2.4 GM/DL (3.4-5.0) (3.4-5.0) Neutrophils (%) (Auto) 67.0 % (16.0-70.0) Lymphocytes (%) (Auto) 16.3 % (9.0-44.0) Monocytes (%) (Auto) 11.6 % (0.0-8.0) Eosinophils (%) (Auto) 4.6 % (0.0-4.0) Basophils (%) (Auto) 0.5 % (0.0-2.0) Neutrophils # (Auto) 7.0 TH/MM3 (1.8-7.7) Lymphocytes # (Auto) 1.7 TH/MM3 (1.0-4.8) Monocytes # (Auto) 1.2 TH/MM3 (0-0.9) Eosinophils # (Auto) 0.5 TH/MM3 (0-0.4) Basophils # (Auto) 0.1 TH/MM3 (0-0.2) CBC Comment DIFF FINAL Differential Comment Result Diagram: 09/28/16 0645 09/28/16 0645 Procedures * 09/16/16 -PEG tube placement * 09/11/16 -ventriculostomy discontinued. * 09/10/16 -tracheostomy placement. * 09/04/16 -right arterial line placement * 09/01/16 -Right suboccipital craniectomy with evacuation of cerebellar hemorrhage; right frontal bur hole ventriculostomy placement. . Assessment and Plan Disease Oriented Problem List: (1) Spontaneous intraparenchymal intracranial hemorrhage, acute (2) Acute respiratory failure (3) Malignant hypertension Symptom Scale: (1) Shortness of breath 0-10 Scale: Unable to quantify Comment: Secondary to acute respiratory failure. Status post trach. Tolerating T-collar. (2) Pain 0-10 Scale: 0 Comment: Secondary to recent surgical intervention, hospitalization/bedrest. (3) Vomiting 0-10 Scale: 0 Pertinent Non-Medical Issues Psychosocial: . Has 2 children. Originally from [place]. Spiritual: [employer]. Legal: No advance directives completed. Ethical issues impacting care: No advance directives completed. . Important Contacts /HCS Jaci Isabel ([phone]. . Prognosis Mr. Isabel is a 40-year-old male with no significant past medical history who presented on 09/01/16 with large right cerebellar hemisphere hemorrhage with extension into the isaac. He underwent right suboccipital craniectomy with evacuation of cerebellar hemorrhage; right frontal bur hole ventriculostomy placement. Patient at high risk for further complications, continue decline and . Poor prognosis for meaningful functional/neurological recovery. . Code Status: Full Code Plan * CODE STATUS: Full code. * HEALTHCARE DECISION-MAKER: Patient incapacitated secondary to clinical condition, unresponsive -On mechanical ventilation via trach. No advance directives completed. As per [place] law, patient's Jaci Isabel is proxy decision maker. She has accepted this role. * GOALS OF CARE: Family electing to continue current aggressive care, patient s/ p trach and PEG. Reviewed with that patient remains at high risk for further complications, continue decline and . Patient with improved neurological status, now communicating and following commands. Participating in physical therapy. Goal of therapy is to eventually discharge to rehabilitation or home with home health/PT. Disposition at this time is to be determined, case checker following. * SYMPTOMS: = Shortness of breath: Multifactorial. Secondary to acute respiratory failure/acute cerebellar hemorrhage. Status post tracheostomy and . Currently tolerating T-collar. = Pain: Secondary to recent surgical intervention, tracheostomy, bedrest status. Patient on oxycodone 10mg every 4 hours ATC and Dilaudid IV as needed. = Secretions: currently on Levsin and scopolamine patch. Appears controlled. = Agitation: Currently on Zyprexa every 8 hours ATC and Haldol as needed. * Spiritual services following. * Case discussed with bedside RN. * Palliative care contact information has been provided to patient's . * Palliative care will continue to follow-up as needed for further clarifications of goals of care, assist with communication and to provide ongoing emotional and social support throughout this hospitalization. . Time Spent Total Floor Time (mins): 32 (Total time to include review of medical records, physical exam, conversation with patient and uncle, case discussion with bedside RN.) >50% Counseling/Coord of Care: Yes Attestation To help prompt me to consider important information that might be impacting today's encounter and assessment, information from prior notes written by myself or my colleagues may have been "brought forward" into today's note. My signature on this note, however, is an attestation that I personally performed the exam, history, and/or decision-making noted today, and, unless otherwise indicated, the interactions with patient, family, and staff as well as the review of records all occurred today. I also attest that the listed assessment and stated plan reflect my best clinical judgment today based on the combination of historical information, prior notes, and today's exam/ interactions. When time spent is documented, it refers only to time spent today by the signer, or if indicated, combined time spent today by collaborating physician/nurse practitioner. Della Gonzalez Sep 29, 2016 15:47
[2016-09-29] MEDS: ENOXAPARIN SODIUM 40 MG/0.4 ML SYRINGE SQ SCH (16:13)
--- NOTE | 2016-09-29 16:40 | HHI.PR ---
Subjective Remarks ASS NO DISTRESS TRACH OK FENESTRATED TRACH PLACED Objective Vital Signs Date Time Temp Pulse Resp B/P Pulse Ox O2 Delivery O2 Flow Rate FiO2 09/29/16 12:00 98.2 110 20 117/82 100 09/29/16 12:00 110 09/29/16 08:17 100 T-piece 28 09/29/16 08:00 98.6 103 20 138/86 100 09/29/16 08:00 103 09/29/16 07:45 18 09/29/16 07:00 100 T-Piece 28 09/29/16 04:00 98.6 106 18 130/74 96 09/29/16 00:00 98.0 100 18 147/88 97 09/28/16 20:23 98 T-piece 28 09/28/16 20:00 97 T-Piece 28 09/28/16 20:00 98.6 124 19 147/88 94 I/O 09/28/16 09/28/16 09/28/16 09/29/16 09/29/16 09/29/16 07:00 15:00 23:00 07:00 15:00 23:00 Intake Total 1413 ml 1343 ml 990 ml 1580 ml Output Total 1000 ml 2500 ml 950 ml 700 ml Balance 413 ml -1157 ml 40 ml 880 ml IV Total 786 ml 869 ml 410 ml 1030 ml Tube Feeding 477 ml 384 ml 380 ml 350 ml Other 150 ml 90 ml 200 ml 200 ml Output Urine Total 1000 ml 2500 ml 950 ml 700 ml # Bowel Movements 0 0 0 Result Diagram: 09/28/16 0645 09/28/16 0645 Procedures Endotracheal Intubation Decompressive Craniectomy 09/02/16 PEG tube placement 09/16/16 Objective Remarks GENERAL: SKIN: Warm and dry. HEAD: Atraumatic. Normocephalic. EYES: Pupils equal and round. No scleral icterus. No injection or drainage. ENT: No nasal bleeding or discharge. Mucous membranes pink and moist. NECK: Tracheostomy in place CARDIOVASCULAR: Regular rate and rhythm. RESPIRATORY: No accessory muscle use. Clear to auscultation. Breath sounds equal bilaterally. GASTROINTESTINAL: Abdomen soft, non-tender, nondistended. Hepatic and splenic margins not palpable. MUSCULOSKELETAL: Extremities without clubbing, cyanosis, or edema. No obvious deformities. NEUROLOGICAL: Awake and alert. No obvious cranial nerve deficits. Motor grossly within normal limits. Five out of 5 muscle strength in the arms and legs. Normal speech. PSYCHIATRIC: Appropriate mood and affect; insight and judgment normal. Medications and IVs Laboratory Tests Test 09/27/16 09/28/16 06:00 06:45 Red Blood Count 4.14 MIL/MM3 4.02 MIL/MM3 (4.50-5.90) (4.50-5.90) Hemoglobin 11.2 GM/DL 11.4 GM/DL (13.0-17.0) (13.0-17.0) Hematocrit 34.4 % 32.9 % (39.0-51.0) (39.0-51.0) Aspartate Amino Transf 102 U/L (15-37) 64 U/L (15-37) (AST/SGOT) Alanine Aminotransferase 154 U/L (12-78) 133 U/L (12-78) (ALT/SGPT) Alkaline Phosphatase 311 U/L 382 U/L (45-117) (45-117) Albumin 2.2 GM/DL 2.4 GM/DL (3.4-5.0) (3.4-5.0) Monocytes (%) (Auto) 11.6 % (0.0-8.0) Eosinophils (%) (Auto) 4.6 % (0.0-4.0) Monocytes # (Auto) 1.2 TH/MM3 (0-0.9) Eosinophils # (Auto) 0.5 TH/MM3 (0-0.4) Random Glucose 121 MG/DL (74-106) Calcium Level 8.4 MG/DL (8.5-10.1) Assessment and Plan Assessment and Plan ass respiratory failure IC bleed PLAN o2 as needed pulm. toilet REMOVE TRACHEOSTOMY WHEN POSSIBLE Reed Mcbride MD Sep 29, 2016 16:40
--- NOTE | 2016-09-29 22:24 | RADRPT ---
EXAM DATE/TIME: 09/29/2016 20:45 [facility] COMPARISON: CHEST SINGLE AP, September 17, 2016, 4:47. INDICATIONS : Shortness of breath, possible aspiration vomited while suctioning via trach. MEDICAL HISTORY : Stroke. Hypertension. SURGICAL HISTORY : None. ENCOUNTER: Subsequent ACUITY: 2 weeks PAIN SCORE: 0/10 LOCATION: Bilateral chest FINDINGS: Tracheostomy in satisfactory position. Right PICC line in right atrium. No basal atelectasis. No pneu mothorax. Improved airspace disease from comparison exam on September 17. CONCLUSION: 1. Improved basilar airspace disease. Right PICC line in right atrium. Tracheostomy unchanged. Previo us nasogastric tube removed. Galen Campos MD on September 29, 2016 at 22:21 Board Certified Radiologist. This report was verified electronically.
[2016-09-30] VITALS (7 sets, daily range): BP systolic 133–144; BP diastolic 83–92; PULSE 100–112; RESP 13–18; TEMP 98.5–100.4; O2SAT 95–100
[2016-09-30] MEDS: DILTIAZEM HCL 30 MG TAB PO SCH ×5 (00:42→23:04)
[2016-09-30] MEDS: SODIUM CHLOR 0.9% 1000 ML INJ 1,000 ML IV SCH ×3 (00:42→20:48)
[2016-09-30] MEDS: HALOPERIDOL LACTATE 5 MG/ML AMP IV PUSH PRN (01:15)
[2016-09-30] MEDS: HYDROmorphone HCL PF 1 MG/ML VIAL IV PUSH PRN ×3 (03:27→20:47)
[2016-09-30] MEDS: OLANZapine ODT 10 MG TAB PO SCH ×3 (03:28→20:47)
[2016-09-30] MEDS: oxyCODONE HCL ORAL CONC 20 MG/ML SYRINGE PO SCH ×6 (03:28→23:04)
[2016-09-30] MEDS: CHLORHEXIDINE GLUCONATE 2 % 1 PACK (2 CLOTHS) TOP SCH (04:00)
[2016-09-30] MEDS: METOCLOPRAMIDE HCL SYRUP 10 MG/10 ML UDC PO SCH ×4 (06:00→20:47)
[2016-09-30] MEDS: PROPRANOLOL HCL 20 MG TAB PO SCH ×3 (06:03→23:04)
[2016-09-30 07:20] LABS: AUTOMATED NEUTROPHIL # 5.5 TH/MM3 (1.8-7.7); BASOPHIL # 0.1 TH/MM3 (0-0.2); BASOPHIL % 0.7 % (0.0-2.0); EOSINOPHIL # 0.5 TH/MM3 (0-0.4); EOSINOPHIL % 4.8 % (0.0-4.0); HEMATOCRIT 33.6 % (39.0-51.0); HEMO FLAGS DIFF FINAL; LYMPH % 20.5 % (9.0-44.0); LYMPHOCYTE # 1.9 TH/MM3 (1.0-4.8); MEAN CELL VOLUME 82.5 FL (80.0-100.0); MEAN CORPUSCULAR HEMOGLOBIN 27.6 PG (27.0-34.0); MEAN CORPUSCULAR HGB CONC 33.5 % (32.0-36.0); MONO % 15.8 % (0.0-8.0); NEUT % 58.2 % (16.0-70.0); PLATELET COUNT 373 TH/MM3 (150-450); RED BLOOD COUNT 4.08 MIL/MM3 (4.50-5.90); RED CELL DISTRIBUTION WIDTH 14.6 % (11.6-17.2); WHITE BLOOD COUNT 9.5 TH/MM3 (4.0-11.0)
[2016-09-30 07:27] LABS: ALKALINE PHOSPHATASE 281 U/L (45-117); ALT (GPT) 89 U/L (12-78); ANION GAP 5 MEQ/L (5-15); AST (GOT) 41 U/L (15-37); BICARBONATE 31.2 MEQ/L (21.0-32.0); BLOOD UREA NITROGEN 11 MG/DL (7-18); CHLORIDE 103 MEQ/L (98-107); GLOMERULAR FILTRATION RATE 98 ML/MIN (>89); POTASSIUM 3.9 MEQ/L (3.5-5.1); SODIUM (NA) 139 MEQ/L (136-145); TOTAL BILIRUBIN ADULT 0.5 MG/DL (0.2-1.0)
[2016-09-30] MEDS: CHLORHEXIDINE 0.12% (ORAL KIT) 15 ML CUP MT SCH ×2 (08:00→20:00)
--- NOTE | 2016-09-30 08:56 | HHI.PR ---
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 had Emergent CT angiography with status post decompressive Craniectomy 09/02/16, since procedure has been vomiting, status post Tracheostomy placement, Status post PEG tube placement 09/16/16, has increased liver enzyme, new study showed no evidence of acute cholecystitis. 09/29: stable in his bedroom has strong movements on the Right hemibody at this time with his uncle he looks to understand when he talks with him and show some pictures, continue slowly improving. tracheostomy management as per crime scene specialist. 09/30: Seen in his bedroom, no nausea, vomit or diarrhea. as per Nurse Miss Soto the patient had his Tracheostomy capped yesterday but had an episode of vomiting, CXR do not demonstrated Aspiration pneumonia. Objective Vital Signs Date Time Temp Pulse Resp B/P Pulse Ox O2 Delivery O2 Flow Rate FiO2 09/30/16 07:00 100 T-Piece 28 09/30/16 04:00 99.1 100 13 136/83 95 09/30/16 04:00 100 09/30/16 00:00 105 09/30/16 00:00 100.4 104 18 142/91 98 09/29/16 23:06 18 09/29/16 21:00 100 T-piece 5.00 28 09/29/16 20:00 98 09/29/16 20:00 99.1 98 17 131/90 98 09/29/16 19:00 98 T-Piece 28 09/29/16 16:00 98.6 102 20 136/84 100 09/29/16 16:00 110 09/29/16 12:00 98.2 110 20 117/82 100 09/29/16 12:00 110 I/O 09/29/16 09/29/16 09/29/16 09/30/16 09/30/16 09/30/16 07:00 15:00 23:00 07:00 15:00 23:00 Intake Total 1580 ml 2164 ml 1044 ml Output Total 700 ml 2375 ml 450 ml Balance 880 ml -211 ml 594 ml Intake Oral 0 ml 0 ml IV Total 1030 ml 1464 ml 799 ml Tube Feeding 350 ml 420 ml 125 ml Other 200 ml 280 ml 120 ml Output Urine Total 700 ml 2375 ml 450 ml # Bowel Movements 1 0 Result Diagram: 09/30/1630 09/30/1630 Imaging Last Impressions Chest X-Ray 09/29/16 0000 Signed Impressions: Service Date/Time: Thursday, September 29, 2016 20:45 - CONCLUSION: 1. Improved basilar airspace disease. Right PICC line in right atrium. Tracheostomy unchanged. Previous nasogastric tube removed. Galen Campos MD Hepatobiliary Scan Nuclear Medicine 09/20/16 0000 Signed Impressions: Service Date/Time: Tuesday, September 20, 2016 09:28 - CONCLUSION: Delayed filling of what appears to be a contracted gallbladder suggesting the possibility of gallbladder dysfunction but no acute cholecystitis or cystic/common bile duct obstruction. Al Wong MD Liver Ultrasound 09/18/16 0000 Signed Impressions: Service Date/Time: Sunday, September 18, 2016 08:42 - CONCLUSION: Minimal sludge in the gallbladder with gallbladder wall thickening. The patient does not appear to be tender over the gallbladder. Champ Pascal MD FACR Gastrostomy Tube Placement 09/16/16 0000 Signed Impressions: Service Date/Time: Friday, September 16, 2016 11:10 - CONCLUSION: Uncomplicated gastrostomy tube placement as above. Shady Shelby MD Abdomen X-Ray 09/10/16 0000 Signed Impressions: Service Date/Time: September 06:34 - CONCLUSION: Feeding tube tip in the stomach Al Hernandez MD Head CT 09/07/16 0600 Signed Impressions: Service Date/Time: Wednesday, September 07, 2016 06:05 - CONCLUSION: Stable brain appearance. Al Hernandez MD Neck CTA 09/01/162019 Signed Impressions: Service Date/Time: Thursday, September 01, 2016 20:55 - CONCLUSION: Unremarkable exam. The carotid arteries are intact. Ag Saxena MD Head CTA 09/01/162019 Signed Impressions: Service Date/Time: Thursday, September 01, 2016 20:55 - CONCLUSION: The etiology of the patient's right cerebellar h hemorrhage is not identified and there appears to be some infiltrates and possible pleural effusions in the upper lungs that are visualized. Erika Bob MD Procedures Endotracheal Intubation Decompressive Craniectomy 09/02/16 PEG tube placement 09/16/16 Other Results Laboratory Tests Test 09/30/16 06:30 White Blood Count 9.5 TH/MM3 Red Blood Count 4.08 MIL/MM3 Hemoglobin 11.3 GM/DL Hematocrit 33.6 % Mean Corpuscular Volume 82.5 FL Mean Corpuscular Hemoglobin 27.6 PG Mean Corpuscular Hemoglobin 33.5 % Concent Red Cell Distribution Width 14.6 % Platelet Count 373 TH/MM3 Mean Platelet Volume 9.4 FL Neutrophils (%) (Auto) 58.2 % Lymphocytes (%) (Auto) 20.5 % Monocytes (%) (Auto) 15.8 % Eosinophils (%) (Auto) 4.8 % Basophils (%) (Auto) 0.7 % Neutrophils # (Auto) 5.5 TH/MM3 Lymphocytes # (Auto) 1.9 TH/MM3 Monocytes # (Auto) 1.5 TH/MM3 Eosinophils # (Auto) 0.5 TH/MM3 Basophils # (Auto) 0.1 TH/MM3 CBC Comment DIFF FINAL Differential Comment Sodium Level 139 MEQ/L Potassium Level 3.9 MEQ/L Chloride Level 103 MEQ/L Carbon Dioxide Level 31.2 MEQ/L Anion Gap 5 MEQ/L Blood Urea Nitrogen 11 MG/DL Creatinine 1.03 MG/DL Estimat Glomerular Filtration 98 ML/MIN Rate Random Glucose 110 MG/DL Calcium Level 9.4 MG/DL Total Bilirubin 0.5 MG/DL Aspartate Amino Transf 41 U/L (AST/SGOT) Alanine Aminotransferase 89 U/L (ALT/SGPT) Alkaline Phosphatase 281 U/L Total Protein 8.2 GM/DL Albumin 2.4 GM/DL Objective Remarks GENERAL: NAD, A&Ox3, unable to talk due to trache, but can communicate SKIN: Warm and dry. HEAD: Normocephalic. EYES: No scleral icterus. No injection or drainage. NECK: Supple, trachea midline. No JVD or lymphadenopathy. Midline Tracheostomy. CARDIOVASCULAR: Regular rate and rhythm without murmurs, gallops, or rubs. RESPIRATORY: Breath sounds equal bilaterally. No accessory muscle use. GASTROINTESTINAL: Abdomen soft, non-tender, nondistended. MUSCULOSKELETAL: No cyanosis, or edema. BACK: Nontender without obvious deformity. No CVA tenderness. Medications and IVs Current Medications Medications (Trade) Dose Ordered Sig/Demetris Route Start Time Stop Time Status Last Admin (NS Flush) 2 ml UNSCH PRN .XX 09/01/16 21:00 (NS Flush) 2 ml BID .XX 09/01/16 21:00 09/29/16 22:07 (Protonix Inj) 40 mg DAILY IV 09/02/16 09:00 09/29/16 09:06 Miscellaneous Information 1 Q361D XX 09/01/16 21:00 (Chlorhexidine 2% Cloth) Taper DAILY@04 TOP 09/02/16 04:00 08/29/17 03:59 09/28/16 04:00 Chlorhexidine Gluconate 3 pack 3 pack UNSCH PRN TOP 09/01/16 21:00 Potassium Chloride 100 ml @ 50 mls/hr Q2H PRN IV 09/01/16 21:15 09/02/16 04:54 (KCl 20 Meq Premix Inj) 100 ml @ 50 mls/hr Q2H PRN IV 09/01/16 21:15 Potassium Bicarb/ Potassium Chloride 50 meq 50 meq UNSCH PRN PO 09/01/16 21:15 Potassium Chloride 100 ml @ 25 mls/hr UNSCH PRN IV 09/01/16 21:15 09/23/16 12:30 Potassium Chloride 100 ml @ 50 mls/hr Q2H PRN IV 09/01/16 21:15 (Magnesium Sulfate Inj/NS Inj) 100 ml @ 50 mls/hr UNSCH PRN IV 09/01/16 21:15 Magnesium Oxide 800 mg 800 mg UNSCH PRN PO 09/01/16 21:15 (Magnesium Sulfate Inj/NS Inj) 100 ml @ 50 mls/hr UNSCH PRN IV 09/01/16 21:15 09/02/16 08:18 Potassium Phosphate 2000 mg 2,000 mg Q4H PRN PO 09/01/16 21:15 (Sodium Phosphate Inj/NS 250 ml Inj) 250 ml @ 42 mls/hr UNSCH PRN IV 09/01/16 21:15 09/02/16 08:18 (K-Phos) 2,000 mg UNSCH PRN PO/TUBE 09/01/16 21:15 (D50w (Vial) Inj) 50 ml UNSCH PRN IV 09/01/16 21:15 (Glucagon Inj) 1 mg UNSCH PRN OTHER 09/01/16 21:15 (Peridex 0.12% Liq) 15 ml BID@08,20 MT 09/02/16 08:00 09/30/16 08:00 (Trandate Inj) 10 mg Q4H PRN IV PUSH 09/02/16 00:45 09/19/16 12:25 (Ofirmev Inj) 1,000 mg Q6H PRN IV 09/02/16 01:00 09/24/16 00:22 (Zofran Inj) 4 mg Q6HR PRN IV PUSH 09/02/16 01:00 09/27/16 12:06 (Reglan Liq) 10 mg ACHS PO 09/03/16 11:00 09/30/16 06:00 (Dulcolax Supp) 10 mg DAILY RECTAL 09/04/16 09:00 09/28/16 08:52 (Tania-Colace) 1 tab BID PO 09/03/16 09:45 09/29/16 22:07 (Lopressor Inj) 5 mg Q4H PRN IV PUSH 09/06/16 10:15 09/24/16 15:35 (NS Flush) See Protocol DAILY IV FLUSH 09/11/16 09:00 09/29/16 09:08 (NS Flush) See Protocol UNSCH PRN IV FLUSH 09/10/16 14:45 (Heparin Central Flush) See Protocol DAILY IV FLUSH 09/11/16 09:00 09/29/16 09:06 (Heparin Central Flush) See Protocol UNSCH PRN IV FLUSH 09/10/16 14:45 09/14/16 05:40 (NS Flush) UNSCH PRN IV FLUSH 09/10/16 14:45 (Thorazine Inj) 25 mg Q4H PRN IM 09/12/16 09:30 09/13/16 19:50 (Lopressor) 50 mg Q12HR PO 09/13/16 09:15 Hold 09/14/16 20:56 (Norvasc) 5 mg DAILY PO 09/13/16 09:15 09/29/16 09:07 (Haldol Inj) 5 mg Q4H PRN IV PUSH 09/14/16 10:45 09/30/16 01:15 (ZyPREXA ZYDIS ODT) 10 mg Q8H PO 09/14/16 12:00 09/30/16 03:28 (Dilaudid Pf Inj) 0.5 mg Q4H PRN IV PUSH 09/14/16 10:45 09/30/16 03:27 (Roxicodone Intensol Liq) 10 mg Q4H PO 09/14/16 11:00 09/30/16 06:00 (Inderal) 20 mg Q8HR PO 09/15/16 06:23 09/30/16 06:03 (Transderm-Scop 1.5 Mg Patch.72 Hr) 1 patch Q3D T-DERMAL 09/19/16 12:00 09/28/16 12:49 Miscellaneous Information 1 Q3D T-DERMAL 09/22/16 12:00 09/28/16 12:00 Enoxaparin Sodium 40 mg 40 mg Q24H SQ 09/21/16 14:00 09/29/16 16:13 (NS 1000 ml Inj) 1,000 ml @ 100 mls/hr Q10H IV 09/24/16 15:00 09/30/16 00:42 (Levsin Liq) 0.125 mg Q4H PRN PO 09/25/16 12:30 09/28/16 20:01 (Cardizem) 30 mg Q6HR PO 09/25/16 18:00 09/30/16 06:03 A/P Assessment and Plan 40 year old male admitted with a right cerebellar ICH. Status post craniectomy 09/01. Continue suction as needed. Levsin has had benefit. Continue occupational therapy, speech therapy, and physical therapy. Patient has had some movement in the left leg and arm, per family. No respiratory distress today. Status Post Acute right cerebellar hemorrhage L hemiparesis Status post suboccipital craniectomy with cerebellar hemorrhage evacuation and ventriculostomy on 09/01/16 Zyprexa continued Oxycodone continued Follow for fevers or hypothermia PT, OT, ST strong on the right hemibody, as per nurse he has some movements on the left arm and Leg. Acute hypoxic and hypercarbic respiratory failure Aspiration Scheduled DuoNeb PRN Albuterol Enterobacter, Klebsiella in sputum, now Enterobacter is resistant to Rocephin. cefepime 2gm iv q8h started 09/15/16, for resistant Enterobacter Pulmonary Toilet and tracheostomy care Trach management per pulmonology, Cap trial performed yesterday Malignant Hypertension Sinus tachycardia Continue Labetalol and hydralazine prn SBP <150. Continue Lopressor 5mg iv q4h prn for HR > 90. Continue Propranolol 20mg po q8h for tachycardia and agitation. Continue Norvasc 5 daily Elevated liver enzymes Improving through time Follow LFTs DVT Prophylaxis Lovenox, SCDs GI Prophylaxis Protonix Lines: PICC line Discharge Planning Not yet cleared for discharge. Martínez Bauer MD Sep 30, 2016 08:56
[2016-09-30] MEDS: BISACODYL 10 MG SUPP RECTAL SCH (09:00)
[2016-09-30] MEDS: DOCUSATE SODIUM 50 MG/SENNA 8.6 MG TAB PO SCH ×2 (09:00→20:47)
[2016-09-30] MEDS: SODIUM CHLORIDE 0.9% FLUSH 10 ML FLUSH IV FLUSH SCH (09:00)
[2016-09-30] MEDS: PANTOPRAZOLE SODIUM 40 MG VIAL IV SCH (09:00)
[2016-09-30] MEDS: amLODIPine BESYLATE 5 MG TAB PO SCH (09:00)
[2016-09-30] MEDS: SODIUM CHLORIDE 0.9% FLUSH 10 ML FLUSH SCH ×2 (09:00→20:48)
[2016-09-30] MEDS: RESP: TOBRAMYCIN SULFATE 300 MG/5 ML NEB NEB SCH (09:13)
[2016-09-30] MEDS: ENOXAPARIN SODIUM 40 MG/0.4 ML SYRINGE SQ SCH (14:00)
--- NOTE | 2016-09-30 15:55 | HHI.PR ---
Subjective Remarks ASS NO DISTRESS TRACH OK FENESTRATED TRACH PLACED Objective Vital Signs Date Time Temp Pulse Resp B/P Pulse Ox O2 Delivery O2 Flow Rate FiO2 09/30/16 12:00 107 09/30/16 12:00 98.9 107 18 140/87 100 09/30/16 08:55 98 T-piece 6.00 28 09/30/16 08:00 98.9 104 18 133/89 100 09/30/16 08:00 101 09/30/16 07:00 100 T-Piece 28 09/30/16 04:00 99.1 100 13 136/83 95 09/30/16 04:00 100 09/30/16 00:00 105 09/30/16 00:00 100.4 104 18 142/91 98 09/29/16 23:06 18 09/29/16 21:00 100 T-piece 5.00 28 09/29/16 20:00 98 09/29/16 20:00 99.1 98 17 131/90 98 09/29/16 19:00 98 T-Piece 28 09/29/16 16:00 98.6 102 20 136/84 100 09/29/16 16:00 110 I/O 09/29/16 09/29/16 09/29/16 09/30/16 09/30/16 09/30/16 07:00 15:00 23:00 07:00 15:00 23:00 Intake Total 1580 ml 2164 ml 1044 ml Output Total 700 ml 2375 ml 450 ml Balance 880 ml -211 ml 594 ml Intake Oral 0 ml 0 ml IV Total 1030 ml 1464 ml 799 ml Tube Feeding 350 ml 420 ml 125 ml Other 200 ml 280 ml 120 ml Output Urine Total 700 ml 2375 ml 450 ml # Bowel Movements 1 0 Result Diagram: 09/30/1630 09/30/1630 Procedures Endotracheal Intubation Decompressive Craniectomy 09/02/16 PEG tube placement 09/16/16 Objective Remarks GENERAL: SKIN: Warm and dry. HEAD: Atraumatic. Normocephalic. EYES: Pupils equal and round. No scleral icterus. No injection or drainage. ENT: No nasal bleeding or discharge. Mucous membranes pink and moist. NECK: Tracheostomy in place CARDIOVASCULAR: Regular rate and rhythm. RESPIRATORY: No accessory muscle use. Clear to auscultation. Breath sounds equal bilaterally. GASTROINTESTINAL: Abdomen soft, non-tender, nondistended. Hepatic and splenic margins not palpable. MUSCULOSKELETAL: Extremities without clubbing, cyanosis, or edema. No obvious deformities. NEUROLOGICAL: Awake and alert. No obvious cranial nerve deficits. Motor grossly within normal limits. Five out of 5 muscle strength in the arms and legs. Normal speech. PSYCHIATRIC: Appropriate mood and affect; insight and judgment normal. Assessment and Plan Assessment and Plan ass respiratory failure IC bleed PLAN o2 as needed pulm. toilet REMOVE TRACHEOSTOMY WHEN POSSIBLE Reed Mcbride MD Sep 30, 2016 15:55
[2016-10-01] VITALS (8 sets, daily range): BP systolic 121–142; BP diastolic 79–94; PULSE 97–118; RESP 13–25; TEMP 98.3–99.9; O2SAT 93–100
[2016-10-01] MEDS: CHLORHEXIDINE GLUCONATE 2 % 1 PACK (2 CLOTHS) TOP SCH (04:00)
[2016-10-01] MEDS: OLANZapine ODT 10 MG TAB PO SCH ×3 (05:04→20:00)
[2016-10-01] MEDS: oxyCODONE HCL ORAL CONC 20 MG/ML SYRINGE PO SCH ×6 (05:05→23:06)
[2016-10-01] MEDS: PROPRANOLOL HCL 20 MG TAB PO SCH ×3 (06:47→21:10)
[2016-10-01] MEDS: METOCLOPRAMIDE HCL SYRUP 10 MG/10 ML UDC PO SCH ×4 (06:47→19:59)
[2016-10-01] MEDS: BISACODYL 10 MG SUPP RECTAL SCH (06:47)
[2016-10-01] MEDS: DILTIAZEM HCL 30 MG TAB PO SCH ×4 (06:47→23:05)
[2016-10-01] MEDS: SODIUM CHLOR 0.9% 1000 ML INJ 1,000 ML IV SCH ×2 (06:50→17:17)
[2016-10-01] MEDS: SODIUM CHLORIDE 0.9% FLUSH 10 ML FLUSH IV FLUSH SCH (09:00)
[2016-10-01] MEDS: CHLORHEXIDINE 0.12% (ORAL KIT) 15 ML CUP MT SCH ×2 (09:29→20:00)
[2016-10-01] MEDS: SODIUM CHLORIDE 0.9% FLUSH 10 ML FLUSH SCH ×2 (09:30→20:00)
[2016-10-01] MEDS: PANTOPRAZOLE SODIUM 40 MG VIAL IV SCH (09:42)
[2016-10-01] MEDS: amLODIPine BESYLATE 5 MG TAB PO SCH (09:43)
[2016-10-01] MEDS: DOCUSATE SODIUM 50 MG/SENNA 8.6 MG TAB PO SCH ×2 (09:43→20:00)
[2016-10-01] MEDS: ONDANSETRON HCL 4 MG/2 ML VIAL IV PUSH PRN ×2 (12:59→21:11)
[2016-10-01] MEDS: SCOPOLAMINE 1.5 MG PATCH T-DERMAL SCH (13:00)
[2016-10-01] MEDS: REMOVE OLD SCOPOLAMINE PATCH T-DERMAL SCH (13:00)
[2016-10-01] MEDS: ENOXAPARIN SODIUM 40 MG/0.4 ML SYRINGE SQ SCH (13:01)
--- NOTE | 2016-10-01 13:34 | HHI.PR ---
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 had Emergent CT angiography with status post decompressive Craniectomy 09/02/16, since procedure has been vomiting, status post Tracheostomy placement, Status post PEG tube placement 09/16/16, has increased liver enzyme, new study showed no evidence of acute cholecystitis. 09/29: Strong movements on the Right hemibody at this time with his uncle he looks to understand when he talks with him and show some pictures, continue slowly improving. tracheostomy management as per exhibition specialist. 09/30: Tracheostomy capped yesterday but had an episode of vomiting, CXR do not demonstrated Aspiration pneumonia. 10/01: Seen in her bedroom, discussed with patient and his Uncle in the room, the patient wants his Kumar Cath removed will try to get him a Condom Kumar, stable no Nausea, vomit or diarrhea. Objective Vital Signs Date Time Temp Pulse Resp B/P Pulse Ox O2 Delivery O2 Flow Rate FiO2 10/01/16 12:00 106 10/01/16 12:00 98.7 109 19 142/94 95 10/01/16 08:00 106 10/01/16 08:00 98.9 106 24 130/89 99 10/01/16 07:42 98 T-piece 28 10/01/16 07:00 99 T-Piece 28 10/01/16 04:00 112 10/01/16 04:00 98.8 112 25 132/90 96 10/01/16 00:00 97 10/01/16 00:00 98.3 97 13 121/79 97 09/30/16 20:00 98.5 112 14 144/92 96 09/30/16 20:00 104 09/30/16 20:00 98 T-piece 5.00 28 09/30/16 19:00 97 T-Piece 28 09/30/16 16:00 98.9 104 18 133/89 100 09/30/16 16:00 101 I/O 09/30/16 09/30/16 09/30/16 10/01/16 10/01/16 10/01/16 06:59 14:59 22:59 06:59 14:59 22:59 Intake Total 1044 ml 800 ml 2360 ml 1050 ml Output Total 450 ml 1375 ml 375 ml 0 ml Balance 594 ml 800 ml 985 ml 675 ml 0 ml Intake Oral 0 ml 0 ml 0 ml 0 ml IV Total 799 ml 800 ml 1421 ml 611 ml Tube Feeding 125 ml 819 ml 319 ml Other 120 ml 120 ml 120 ml Output Urine Total 450 ml 1375 ml 375 ml Tube Feeding Residual Discard 0 ml # Bowel Movements 0 0 0 Result Diagram: 09/30/1630 09/30/1630 Imaging Last Impressions Chest X-Ray 09/29/16 0000 Signed Impressions: Service Date/Time: Thursday, September 29, 2016 20:45 - CONCLUSION: 1. Improved basilar airspace disease. Right PICC line in right atrium. Tracheostomy unchanged. Previous nasogastric tube removed. Galen Campos MD Hepatobiliary Scan Nuclear Medicine 09/20/16 0000 Signed Impressions: Service Date/Time: Tuesday, September 20, 2016 09:28 - CONCLUSION: Delayed filling of what appears to be a contracted gallbladder suggesting the possibility of gallbladder dysfunction but no acute cholecystitis or cystic/common bile duct obstruction. Al Wong MD Liver Ultrasound 09/18/16 0000 Signed Impressions: Service Date/Time: Sunday, September 18, 2016 08:42 - CONCLUSION: Minimal sludge in the gallbladder with gallbladder wall thickening. The patient does not appear to be tender over the gallbladder. Champ Pascal MD FACR Gastrostomy Tube Placement 09/16/16 0000 Signed Impressions: Service Date/Time: Friday, September 16, 2016 11:10 - CONCLUSION: Uncomplicated gastrostomy tube placement as above. Shady Shelby MD Abdomen X-Ray 09/10/16 0000 Signed Impressions: Service Date/Time: September 06:34 - CONCLUSION: Feeding tube tip in the stomach Al Hernandez MD Head CT 09/07/16 0600 Signed Impressions: Service Date/Time: Wednesday, September 07, 2016 06:05 - CONCLUSION: Stable brain appearance. Al Hernandez MD Neck CTA 09/01/162019 Signed Impressions: Service Date/Time: Thursday, September 01, 2016 20:55 - CONCLUSION: Unremarkable exam. The carotid arteries are intact. Ag Saxena MD Head CTA 09/01/162019 Signed Impressions: Service Date/Time: Thursday, September 01, 2016 20:55 - CONCLUSION: The etiology of the patient's right cerebellar h hemorrhage is not identified and there appears to be some infiltrates and possible pleural effusions in the upper lungs that are visualized. Erika Bob MD Procedures Endotracheal Intubation Decompressive Craniectomy 09/02/16 PEG tube placement 09/16/16 Other Results Laboratory Tests Test 09/30/16 06:30 White Blood Count 9.5 TH/MM3 Red Blood Count 4.08 MIL/MM3 Hemoglobin 11.3 GM/DL Hematocrit 33.6 % Mean Corpuscular Volume 82.5 FL Mean Corpuscular Hemoglobin 27.6 PG Mean Corpuscular Hemoglobin 33.5 % Concent Red Cell Distribution Width 14.6 % Platelet Count 373 TH/MM3 Mean Platelet Volume 9.4 FL Neutrophils (%) (Auto) 58.2 % Lymphocytes (%) (Auto) 20.5 % Monocytes (%) (Auto) 15.8 % Eosinophils (%) (Auto) 4.8 % Basophils (%) (Auto) 0.7 % Neutrophils # (Auto) 5.5 TH/MM3 Lymphocytes # (Auto) 1.9 TH/MM3 Monocytes # (Auto) 1.5 TH/MM3 Eosinophils # (Auto) 0.5 TH/MM3 Basophils # (Auto) 0.1 TH/MM3 CBC Comment DIFF FINAL Differential Comment Sodium Level 139 MEQ/L Potassium Level 3.9 MEQ/L Chloride Level 103 MEQ/L Carbon Dioxide Level 31.2 MEQ/L Anion Gap 5 MEQ/L Blood Urea Nitrogen 11 MG/DL Creatinine 1.03 MG/DL Estimat Glomerular Filtration 98 ML/MIN Rate Random Glucose 110 MG/DL Calcium Level 9.4 MG/DL Total Bilirubin 0.5 MG/DL Aspartate Amino Transf 41 U/L (AST/SGOT) Alanine Aminotransferase 89 U/L (ALT/SGPT) Alkaline Phosphatase 281 U/L Total Protein 8.2 GM/DL Albumin 2.4 GM/DL Objective Remarks GENERAL: NAD, A&Ox3, unable to talk due to trache, but can communicate SKIN: Warm and dry. HEAD: Normocephalic. EYES: No scleral icterus. No injection or drainage. NECK: Supple, trachea midline. No JVD or lymphadenopathy. Midline Tracheostomy. CARDIOVASCULAR: Regular rate and rhythm without murmurs, gallops, or rubs. RESPIRATORY: Breath sounds equal bilaterally. No accessory muscle use. GASTROINTESTINAL: Abdomen soft, non-tender, nondistended. MUSCULOSKELETAL: No cyanosis, or edema. BACK: Nontender without obvious deformity. No CVA tenderness. Medications and IVs Current Medications Medications (Trade) Dose Ordered Sig/Demetris Route Start Time Stop Time Status Last Admin (NS Flush) 2 ml UNSCH PRN .XX 09/01/16 21:00 (NS Flush) 2 ml BID .XX 09/01/16 21:00 10/01/16 09:30 (Protonix Inj) 40 mg DAILY IV 09/02/16 09:00 10/01/16 09:42 Miscellaneous Information 1 Q361D XX 09/01/16 21:00 (Chlorhexidine 2% Cloth) Taper DAILY@04 TOP 09/02/16 04:00 08/29/17 03:59 09/28/16 04:00 Chlorhexidine Gluconate 3 pack 3 pack UNSCH PRN TOP 09/01/16 21:00 Potassium Chloride 100 ml @ 50 mls/hr Q2H PRN IV 09/01/16 21:15 09/02/16 04:54 (KCl 20 Meq Premix Inj) 100 ml @ 50 mls/hr Q2H PRN IV 09/01/16 21:15 Potassium Bicarb/ Potassium Chloride 50 meq 50 meq UNSCH PRN PO 09/01/16 21:15 Potassium Chloride 100 ml @ 25 mls/hr UNSCH PRN IV 09/01/16 21:15 09/23/16 12:30 Potassium Chloride 100 ml @ 50 mls/hr Q2H PRN IV 09/01/16 21:15 (Magnesium Sulfate Inj/NS Inj) 100 ml @ 50 mls/hr UNSCH PRN IV 09/01/16 21:15 Magnesium Oxide 800 mg 800 mg UNSCH PRN PO 09/01/16 21:15 (Magnesium Sulfate Inj/NS Inj) 100 ml @ 50 mls/hr UNSCH PRN IV 09/01/16 21:15 09/02/16 08:18 Potassium Phosphate 2000 mg 2,000 mg Q4H PRN PO 09/01/16 21:15 (Sodium Phosphate Inj/NS 250 ml Inj) 250 ml @ 42 mls/hr UNSCH PRN IV 09/01/16 21:15 09/02/16 08:18 (K-Phos) 2,000 mg UNSCH PRN PO/TUBE 09/01/16 21:15 (D50w (Vial) Inj) 50 ml UNSCH PRN IV 09/01/16 21:15 (Glucagon Inj) 1 mg UNSCH PRN OTHER 09/01/16 21:15 (Peridex 0.12% Liq) 15 ml BID@08,20 MT 09/02/16 08:00 10/01/16 09:29 (Trandate Inj) 10 mg Q4H PRN IV PUSH 09/02/16 00:45 09/19/16 12:25 (Ofirmev Inj) 1,000 mg Q6H PRN IV 09/02/16 01:00 09/24/16 00:22 (Zofran Inj) 4 mg Q6HR PRN IV PUSH 09/02/16 01:00 10/01/16 12:59 (Reglan Liq) 10 mg ACHS PO 09/03/16 11:00 10/01/16 09:43 (Dulcolax Supp) 10 mg DAILY RECTAL 09/04/16 09:00 10/01/16 06:47 (Tania-Colace) 1 tab BID PO 09/03/16 09:45 10/01/16 09:43 (Lopressor Inj) 5 mg Q4H PRN IV PUSH 09/06/16 10:15 09/24/16 15:35 (NS Flush) See Protocol DAILY IV FLUSH 09/11/16 09:00 09/30/16 09:00 (NS Flush) See Protocol UNSCH PRN IV FLUSH 09/10/16 14:45 10/01/16 09:42 (Heparin Central Flush) See Protocol DAILY IV FLUSH 09/11/16 09:00 10/01/16 09:42 (Heparin Central Flush) See Protocol UNSCH PRN IV FLUSH 09/10/16 14:45 09/14/16 05:40 (NS Flush) UNSCH PRN IV FLUSH 09/10/16 14:45 (Thorazine Inj) 25 mg Q4H PRN IM 09/12/16 09:30 09/13/16 19:50 (Lopressor) 50 mg Q12HR PO 09/13/16 09:15 Hold 09/14/16 20:56 (Norvasc) 5 mg DAILY PO 09/13/16 09:15 10/01/16 09:43 (Haldol Inj) 5 mg Q4H PRN IV PUSH 09/14/16 10:45 09/30/16 01:15 (ZyPREXA ZYDIS ODT) 10 mg Q8H PO 09/14/16 12:00 10/01/16 13:01 (Dilaudid Pf Inj) 0.5 mg Q4H PRN IV PUSH 09/14/16 10:45 09/30/16 20:47 (Roxicodone Intensol Liq) 10 mg Q4H PO 09/14/16 11:00 10/01/16 09:45 (Inderal) 20 mg Q8HR PO 09/15/16 06:23 10/01/16 13:01 (Transderm-Scop 1.5 Mg Patch.72 Hr) 1 patch Q3D T-DERMAL 09/19/16 12:00 10/01/16 13:00 Miscellaneous Information 1 Q3D T-DERMAL 09/22/16 12:00 10/01/16 13:00 Enoxaparin Sodium 40 mg 40 mg Q24H SQ 09/21/16 14:00 10/01/16 13:01 (NS 1000 ml Inj) 1,000 ml @ 100 mls/hr Q10H IV 09/24/16 15:00 10/01/16 06:50 (Levsin Liq) 0.125 mg Q4H PRN PO 09/25/16 12:30 09/28/16 20:01 (Cardizem) 30 mg Q6HR PO 09/25/16 18:00 10/01/16 13:01 A/P Assessment and Plan 40 year old male admitted with a right cerebellar ICH. Status post craniectomy 09/01. Continue suction as needed. Levsin has had benefit. Continue occupational therapy, speech therapy, and physical therapy. Patient has had some movement in the left leg and arm, per family. No respiratory distress today. Status Post Acute right cerebellar hemorrhage L hemiparesis Status post suboccipital craniectomy with cerebellar hemorrhage evacuation and ventriculostomy on 5/23/17 Zyprexa continued Oxycodone continued Follow for fevers or hypothermia PT, OT, ST strong on the right hemibody, he has some movements on the left arm and Leg. Acute hypoxic and hypercarbic respiratory failure Aspiration Scheduled DuoNeb PRN Albuterol Enterobacter, Klebsiella in sputum, now Enterobacter is resistant to Rocephin. cefepime 2gm iv q8h started 09/15/16 completed for seven days, also had Tobramycin nebulized, for resistant Enterobacter Pulmonary Toilet and tracheostomy care Trach management per pulmonology, Cap trial performed Malignant Hypertension Sinus tachycardia Continue Labetalol and hydralazine prn SBP <150. Continue Lopressor 5mg iv q4h prn for HR > 90. Continue Propranolol 20mg po q8h for tachycardia and agitation. Continue Norvasc 5 daily Elevated liver enzymes Improving through time Follow LFTs DVT Prophylaxis Lovenox, SCDs GI Prophylaxis Protonix Lines: PICC line Remove Kumar cath today. Discharge Planning Not yet cleared for discharge. Martínez Bauer MD Oct 01, 2016 13:34
[2016-10-01] MEDS ORDERED: LACTULOSE SYRUP 20 GM/30 ML CUP PEG ONE (16:15)
[2016-10-01] MEDS: HYOSCYAMINE SOLN 0.125 MG/ML 15 ML BTL PO PRN (21:11)
[2016-10-02] VITALS (8 sets, daily range): BP systolic 113–134; BP diastolic 7–78; PULSE 82–108; RESP 11–22; TEMP 98.4–99; O2SAT 95–100
[2016-10-02] MEDS: CHLORHEXIDINE GLUCONATE 2 % 1 PACK (2 CLOTHS) TOP SCH (02:48)
[2016-10-02] MEDS: SODIUM CHLOR 0.9% 1000 ML INJ 1,000 ML IV SCH ×4 (03:00→22:07)
[2016-10-02] MEDS: OLANZapine ODT 10 MG TAB PO SCH ×3 (03:54→21:07)
[2016-10-02] MEDS: oxyCODONE HCL ORAL CONC 20 MG/ML SYRINGE PO SCH ×6 (03:55→22:08)
[2016-10-02] MEDS: DILTIAZEM HCL 30 MG TAB PO SCH ×3 (05:16→17:17)
[2016-10-02] MEDS: PROPRANOLOL HCL 20 MG TAB PO SCH ×3 (05:16→21:17)
[2016-10-02] MEDS: METOCLOPRAMIDE HCL SYRUP 10 MG/10 ML UDC PO SCH ×4 (05:16→21:07)
[2016-10-02] MEDS: amLODIPine BESYLATE 5 MG TAB PO SCH (08:17)
[2016-10-02] MEDS: DOCUSATE SODIUM 50 MG/SENNA 8.6 MG TAB PO SCH ×2 (08:17→21:07)
[2016-10-02] MEDS: CHLORHEXIDINE 0.12% (ORAL KIT) 15 ML CUP MT SCH ×2 (08:18→21:06)
[2016-10-02] MEDS: PANTOPRAZOLE SODIUM 40 MG VIAL IV SCH (08:18)
[2016-10-02] MEDS: SODIUM CHLORIDE 0.9% FLUSH 10 ML FLUSH SCH ×2 (08:19→21:07)
[2016-10-02] MEDS: BISACODYL 10 MG SUPP RECTAL SCH (08:19)
[2016-10-02] MEDS: SODIUM CHLORIDE 0.9% FLUSH 10 ML FLUSH IV FLUSH SCH (08:19)
[2016-10-02] MEDS: ENOXAPARIN SODIUM 40 MG/0.4 ML SYRINGE SQ SCH (13:42)
--- NOTE | 2016-10-02 16:18 | HHI.PR ---
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 had Emergent CT angiography with status post decompressive Craniectomy 09/02/16, since procedure has been vomiting, status post Tracheostomy placement, Status post PEG tube placement 09/16/16, has increased liver enzyme, new study showed no evidence of acute cholecystitis. 09/29: Strong movements on the Right hemibody at this time with his uncle he looks to understand when he talks with him and show some pictures, continue slowly improving. tracheostomy management as per prescription benefit specialist. 09/30: Tracheostomy capped yesterday but had an episode of vomiting, CXR do not demonstrated Aspiration pneumonia. 10/01: Kumar Cath removed 10/02: seen in his bedroom, no change to anterior assessment, no nausea, vomit or diarrhea, somnolent at this time. Objective Vital Signs Date Time Temp Pulse Resp B/P Pulse Ox O2 Delivery O2 Flow Rate FiO2 10/02/16 12:00 82 10/02/16 12:00 98.6 82 18 117/68 96 10/02/16 11:02 16 10/02/16 08:00 98.8 95 11 134/78 95 10/02/16 08:00 95 10/02/16 07:23 97 T-piece 28 10/02/16 07:00 97 T-Piece 28 10/02/16 04:00 104 10/02/16 04:00 98.4 104 16 128/7 96 10/02/16 00:00 108 10/02/16 00:00 98.6 108 18 131/78 95 10/01/16 20:00 118 10/01/16 20:00 99.9 118 22 130/90 100 10/01/16 19:44 93 T-piece 28 10/01/16 19:00 99 T-Piece 28 I/O 10/01/16 10/01/16 10/01/16 10/02/16 10/02/16 10/02/16 07:00 15:00 23:00 07:00 15:00 23:00 Intake Total 1050 ml 1303 ml 749 ml 1082 ml Output Total 375 ml 1675 ml 200 ml 575 ml Balance 675 ml -372 ml 549 ml 507 ml Intake Oral 0 ml 0 ml IV Total 611 ml 940 ml 380 ml 689 ml Tube Feeding 319 ml 303 ml 369 ml 273 ml Other 120 ml 60 ml 120 ml Output Urine Total 375 ml 1675 ml 200 ml 575 ml Tube Feeding Residual Discard 0 ml 0 ml Bladder Scan Volume Amount 375 ml # Bowel Movements 0 1 1 Result Diagram: 09/30/16 0630 09/30/1630 Imaging Last Impressions Chest X-Ray 09/29/16 0000 Signed Impressions: Service Date/Time: Thursday, September 29, 2016 20:45 - CONCLUSION: 1. Improved basilar airspace disease. Right PICC line in right atrium. Tracheostomy unchanged. Previous nasogastric tube removed. Galen Campos MD Hepatobiliary Scan Nuclear Medicine 09/20/16 0000 Signed Impressions: Service Date/Time: Tuesday, September 20, 2016 09:28 - CONCLUSION: Delayed filling of what appears to be a contracted gallbladder suggesting the possibility of gallbladder dysfunction but no acute cholecystitis or cystic/common bile duct obstruction. Al Wong MD Liver Ultrasound 09/18/16 0000 Signed Impressions: Service Date/Time: Sunday, September 18, 2016 08:42 - CONCLUSION: Minimal sludge in the gallbladder with gallbladder wall thickening. The patient does not appear to be tender over the gallbladder. Champ Pascal MD FACR Gastrostomy Tube Placement 09/16/16 0000 Signed Impressions: Service Date/Time: Friday, September 16, 2016 11:10 - CONCLUSION: Uncomplicated gastrostomy tube placement as above. Shady Shelby MD Abdomen X-Ray 09/10/16 0000 Signed Impressions: Service Date/Time: September 06:34 - CONCLUSION: Feeding tube tip in the stomach Al Hernandez MD Head CT 09/07/16 0600 Signed Impressions: Service Date/Time: Wednesday, September 07, 2016 06:05 - CONCLUSION: Stable brain appearance. Al Hernandez MD Neck CTA 09/01/162019 Signed Impressions: Service Date/Time: Thursday, September 01, 2016 20:55 - CONCLUSION: Unremarkable exam. The carotid arteries are intact. Ag Saxena MD Head CTA 09/01/162019 Signed Impressions: Service Date/Time: Thursday, September 01, 2016 20:55 - CONCLUSION: The etiology of the patient's right cerebellar h hemorrhage is not identified and there appears to be some infiltrates and possible pleural effusions in the upper lungs that are visualized. Erika Bob MD Procedures Endotracheal Intubation Decompressive Craniectomy 09/02/16 PEG tube placement 09/16/16 Other Results Laboratory Tests Test 09/30/16 06:30 White Blood Count 9.5 TH/MM3 Red Blood Count 4.08 MIL/MM3 Hemoglobin 11.3 GM/DL Hematocrit 33.6 % Mean Corpuscular Volume 82.5 FL Mean Corpuscular Hemoglobin 27.6 PG Mean Corpuscular Hemoglobin 33.5 % Concent Red Cell Distribution Width 14.6 % Platelet Count 373 TH/MM3 Mean Platelet Volume 9.4 FL Neutrophils (%) (Auto) 58.2 % Lymphocytes (%) (Auto) 20.5 % Monocytes (%) (Auto) 15.8 % Eosinophils (%) (Auto) 4.8 % Basophils (%) (Auto) 0.7 % Neutrophils # (Auto) 5.5 TH/MM3 Lymphocytes # (Auto) 1.9 TH/MM3 Monocytes # (Auto) 1.5 TH/MM3 Eosinophils # (Auto) 0.5 TH/MM3 Basophils # (Auto) 0.1 TH/MM3 CBC Comment DIFF FINAL Differential Comment Sodium Level 139 MEQ/L Potassium Level 3.9 MEQ/L Chloride Level 103 MEQ/L Carbon Dioxide Level 31.2 MEQ/L Anion Gap 5 MEQ/L Blood Urea Nitrogen 11 MG/DL Creatinine 1.03 MG/DL Estimat Glomerular Filtration 98 ML/MIN Rate Random Glucose 110 MG/DL Calcium Level 9.4 MG/DL Total Bilirubin 0.5 MG/DL Aspartate Amino Transf 41 U/L (AST/SGOT) Alanine Aminotransferase 89 U/L (ALT/SGPT) Alkaline Phosphatase 281 U/L Total Protein 8.2 GM/DL Albumin 2.4 GM/DL Objective Remarks GENERAL: No acute distress. SKIN: Warm and dry. HEAD: Normocephalic. EYES: No scleral icterus. No injection or drainage. NECK: Supple, trachea midline. No JVD or lymphadenopathy. Midline Tracheostomy. CARDIOVASCULAR: Regular rate and rhythm without murmurs, gallops, or rubs. RESPIRATORY: Breath sounds equal bilaterally. No accessory muscle use. GASTROINTESTINAL: Abdomen soft, non-tender, nondistended. PEG in place. MUSCULOSKELETAL: No cyanosis, or edema. BACK: Nontender without obvious deformity. No CVA tenderness. Medications and IVs Current Medications Medications (Trade) Dose Ordered Sig/Demetris Route Start Time Stop Time Status Last Admin (NS Flush) 2 ml UNSCH PRN .XX 09/01/16 21:00 (NS Flush) 2 ml BID .XX 09/01/16 21:00 10/02/16 08:19 (Protonix Inj) 40 mg DAILY IV 09/02/16 09:00 10/02/16 08:18 Miscellaneous Information 1 Q361D XX 09/01/16 21:00 (Chlorhexidine 2% Cloth) Taper DAILY@04 TOP 09/02/16 04:00 08/29/17 03:59 09/28/16 04:00 Chlorhexidine Gluconate 3 pack 3 pack UNSCH PRN TOP 09/01/16 21:00 Potassium Chloride 100 ml @ 50 mls/hr Q2H PRN IV 09/01/16 21:15 09/02/16 04:54 (KCl 20 Meq Premix Inj) 100 ml @ 50 mls/hr Q2H PRN IV 09/01/16 21:15 Potassium Bicarb/ Potassium Chloride 50 meq 50 meq UNSCH PRN PO 09/01/16 21:15 Potassium Chloride 100 ml @ 25 mls/hr UNSCH PRN IV 09/01/16 21:15 09/23/16 12:30 Potassium Chloride 100 ml @ 50 mls/hr Q2H PRN IV 09/01/16 21:15 (Magnesium Sulfate Inj/NS Inj) 100 ml @ 50 mls/hr UNSCH PRN IV 09/01/16 21:15 Magnesium Oxide 800 mg 800 mg UNSCH PRN PO 09/01/16 21:15 (Magnesium Sulfate Inj/NS Inj) 100 ml @ 50 mls/hr UNSCH PRN IV 09/01/16 21:15 09/02/16 08:18 Potassium Phosphate 2000 mg 2,000 mg Q4H PRN PO 09/01/16 21:15 (Sodium Phosphate Inj/NS 250 ml Inj) 250 ml @ 42 mls/hr UNSCH PRN IV 09/01/16 21:15 09/02/16 08:18 (K-Phos) 2,000 mg UNSCH PRN PO/TUBE 09/01/16 21:15 (D50w (Vial) Inj) 50 ml UNSCH PRN IV 09/01/16 21:15 (Glucagon Inj) 1 mg UNSCH PRN OTHER 09/01/16 21:15 (Peridex 0.12% Liq) 15 ml BID@08,20 MT 09/02/16 08:00 10/02/16 08:18 (Trandate Inj) 10 mg Q4H PRN IV PUSH 09/02/16 00:45 09/19/16 12:25 (Ofirmev Inj) 1,000 mg Q6H PRN IV 09/02/16 01:00 09/24/16 00:22 (Zofran Inj) 4 mg Q6HR PRN IV PUSH 09/02/16 01:00 10/01/16 21:11 (Reglan Liq) 10 mg ACHS PO 09/03/16 11:00 10/02/16 10:02 (Dulcolax Supp) 10 mg DAILY RECTAL 09/04/16 09:00 10/01/16 06:47 (Tania-Colace) 1 tab BID PO 09/03/16 09:45 10/02/16 08:17 (Lopressor Inj) 5 mg Q4H PRN IV PUSH 09/06/16 10:15 09/24/16 15:35 (NS Flush) See Protocol DAILY IV FLUSH 09/11/16 09:00 10/02/16 08:19 (NS Flush) See Protocol UNSCH PRN IV FLUSH 09/10/16 14:45 10/01/16 09:42 (Heparin Central Flush) See Protocol DAILY IV FLUSH 09/11/16 09:00 10/02/16 08:18 (Heparin Central Flush) See Protocol UNSCH PRN IV FLUSH 09/10/16 14:45 09/14/16 05:40 (NS Flush) UNSCH PRN IV FLUSH 09/10/16 14:45 (Thorazine Inj) 25 mg Q4H PRN IM 09/12/16 09:30 09/13/16 19:50 (Lopressor) 50 mg Q12HR PO 09/13/16 09:15 Hold 09/14/16 20:56 (Norvasc) 5 mg DAILY PO 09/13/16 09:15 10/02/16 08:17 (Haldol Inj) 5 mg Q4H PRN IV PUSH 09/14/16 10:45 09/30/16 01:15 (ZyPREXA ZYDIS ODT) 10 mg Q8H PO 09/14/16 12:00 10/02/16 12:10 (Dilaudid Pf Inj) 0.5 mg Q4H PRN IV PUSH 09/14/16 10:45 09/30/16 20:47 (Roxicodone Intensol Liq) 10 mg Q4H PO 09/14/16 11:00 10/02/16 10:02 (Inderal) 20 mg Q8HR PO 09/15/16 06:23 10/02/16 13:42 (Transderm-Scop 1.5 Mg Patch.72 Hr) 1 patch Q3D T-DERMAL 09/19/16 12:00 10/01/16 13:00 Miscellaneous Information 1 Q3D T-DERMAL 09/22/16 12:00 10/01/16 13:00 Enoxaparin Sodium 40 mg 40 mg Q24H SQ 09/21/16 14:00 10/02/16 13:42 (NS 1000 ml Inj) 1,000 ml @ 100 mls/hr Q10H IV 09/24/16 15:00 10/02/16 12:10 (Levsin Liq) 0.125 mg Q4H PRN PO 09/25/16 12:30 10/01/16 21:11 (Cardizem) 30 mg Q6HR PO 09/25/16 18:00 10/02/16 12:10 A/P Assessment and Plan 40 year old male admitted with a right cerebellar ICH. Status post craniectomy 09/01. Continue suction as needed. Levsin has had benefit. Continue occupational therapy, speech therapy, and physical therapy. Patient has had some movement in the left leg and arm, per family. No respiratory distress today. Status Post Acute right cerebellar hemorrhage L hemiparesis Status post suboccipital craniectomy with cerebellar hemorrhage evacuation and ventriculostomy on 09/01/16 Zyprexa continued Oxycodone continued Follow for fevers or hypothermia PT, OT, ST strong on the right hemibody, he has some movements on the left arm and Leg. Acute hypoxic and hypercarbic respiratory failure Aspiration Scheduled DuoNeb PRN Albuterol Enterobacter, Klebsiella in sputum, now Enterobacter is resistant to Rocephin. cefepime 2gm iv q8h started 09/15/16 completed for seven days, also had Tobramycin nebulized, for resistant Enterobacter Pulmonary Toilet and tracheostomy care Trach management per pulmonology, Cap trial performed Malignant Hypertension Sinus tachycardia Continue Labetalol and hydralazine prn SBP <150. Continue Lopressor 5mg iv q4h prn for HR > 90. Continue Propranolol 20mg po q8h for tachycardia and agitation. Continue Norvasc 5 daily Elevated liver enzymes Improving through time Follow LFTs DVT Prophylaxis Lovenox, SCDs GI Prophylaxis Protonix Lines: PICC line No changes made to anterior assessment. Discharge Planning Will need prolonged Rehabilitation but first will need to be cleared by prescription benefit specialist. Martínez Bauer MD Oct 02, 2016 16:18
--- NOTE | 2016-10-02 16:55 | HHI.PR ---
Subjective Remarks ASS NO DISTRESS TRACH OK FENESTRATED TRACH PLACED Objective Vital Signs Date Time Temp Pulse Resp B/P Pulse Ox O2 Delivery O2 Flow Rate FiO2 10/02/16 16:00 98.8 102 22 113/60 95 10/02/16 16:00 102 10/02/16 12:00 82 10/02/16 12:00 98.6 82 18 117/68 96 10/02/16 11:02 16 10/02/16 08:00 98.8 95 11 134/78 95 10/02/16 08:00 95 10/02/16 07:23 97 T-piece 28 10/02/16 07:00 97 T-Piece 28 10/02/16 04:00 104 10/02/16 04:00 98.4 104 16 128/7 96 10/02/16 00:00 108 10/02/16 00:00 98.6 108 18 131/78 95 10/01/16 20:00 118 10/01/16 20:00 99.9 118 22 130/90 100 10/01/16 19:44 93 T-piece 28 10/01/16 19:00 99 T-Piece 28 I/O 10/01/16 10/01/16 10/01/16 10/02/16 10/02/16 10/02/16 07:00 15:00 23:00 07:00 15:00 23:00 Intake Total 1050 ml 1303 ml 749 ml 1082 ml 1492 ml Output Total 375 ml 1675 ml 200 ml 575 ml 350 ml Balance 675 ml -372 ml 549 ml 507 ml 1142 ml Intake Oral 0 ml 0 ml IV Total 611 ml 940 ml 380 ml 689 ml 975 ml Tube Feeding 319 ml 303 ml 369 ml 273 ml 417 ml Other 120 ml 60 ml 120 ml 100 ml Output Urine Total 375 ml 1675 ml 200 ml 575 ml 350 ml Tube Feeding Residual Discard 0 ml 0 ml Bladder Scan Volume Amount 375 ml # Bowel Movements 0 1 1 0 Result Diagram: 09/30/1630 09/30/1630 Procedures Endotracheal Intubation Decompressive Craniectomy 09/02/16 PEG tube placement 09/16/16 Objective Remarks GENERAL: SKIN: Warm and dry. HEAD: Atraumatic. Normocephalic. EYES: Pupils equal and round. No scleral icterus. No injection or drainage. ENT: No nasal bleeding or discharge. Mucous membranes pink and moist. NECK: Tracheostomy in place CARDIOVASCULAR: Regular rate and rhythm. RESPIRATORY: No accessory muscle use. Clear to auscultation. Breath sounds equal bilaterally. GASTROINTESTINAL: Abdomen soft, non-tender, nondistended. Hepatic and splenic margins not palpable. MUSCULOSKELETAL: Extremities without clubbing, cyanosis, or edema. No obvious deformities. NEUROLOGICAL: Awake and alert. No obvious cranial nerve deficits. Motor grossly within normal limits. Five out of 5 muscle strength in the arms and legs. Normal speech. PSYCHIATRIC: Appropriate mood and affect; insight and judgment normal. Assessment and Plan Assessment and Plan ass respiratory failure IC bleed PLAN o2 as needed pulm. toilet REMOVE TRACHEOSTOMY WHEN POSSIBLE Reed Mcbride MD Oct 02, 2016 16:55
[2016-10-02] MEDS: HYOSCYAMINE SOLN 0.125 MG/ML 15 ML BTL PO PRN (17:12)
[2016-10-02] MEDS: ONDANSETRON HCL 4 MG/2 ML VIAL IV PUSH PRN ×2 (17:17→22:13)
[2016-10-03] VITALS (7 sets, daily range): BP systolic 115–147; BP diastolic 66–100; PULSE 95–113; RESP 9–18; TEMP 98.8–99.3; O2SAT 93–100
[2016-10-03] MEDS: DILTIAZEM HCL 30 MG TAB PO SCH ×4 (00:50→17:58)
[2016-10-03] MEDS: HYDROmorphone HCL PF 1 MG/ML VIAL IV PUSH PRN ×3 (01:54→19:46)
[2016-10-03] MEDS: CHLORHEXIDINE GLUCONATE 2 % 1 PACK (2 CLOTHS) TOP SCH (03:07)
[2016-10-03] MEDS: OLANZapine ODT 10 MG TAB PO SCH ×3 (03:10→20:50)
[2016-10-03] MEDS: oxyCODONE HCL ORAL CONC 20 MG/ML SYRINGE PO SCH ×6 (03:10→22:23)
[2016-10-03] MEDS: PROPRANOLOL HCL 20 MG TAB PO SCH ×3 (06:31→21:41)
[2016-10-03] MEDS: METOCLOPRAMIDE HCL SYRUP 10 MG/10 ML UDC PO SCH ×4 (06:31→20:50)
[2016-10-03] MEDS: SODIUM CHLORIDE 0.9% FLUSH 10 ML FLUSH SCH ×2 (07:55→20:50)
[2016-10-03] MEDS: SODIUM CHLORIDE 0.9% FLUSH 10 ML FLUSH IV FLUSH SCH (07:55)
[2016-10-03] MEDS: PANTOPRAZOLE SODIUM 40 MG VIAL IV SCH (07:56)
[2016-10-03] MEDS: SODIUM CHLOR 0.9% 1000 ML INJ 1,000 ML IV SCH ×2 (07:57→14:24)
[2016-10-03] MEDS: CHLORHEXIDINE 0.12% (ORAL KIT) 15 ML CUP MT SCH ×2 (07:57→19:56)
[2016-10-03] MEDS: BISACODYL 10 MG SUPP RECTAL SCH (07:58)
[2016-10-03] MEDS: DOCUSATE SODIUM 50 MG/SENNA 8.6 MG TAB PO SCH ×2 (07:58→20:50)
[2016-10-03] MEDS: amLODIPine BESYLATE 5 MG TAB PO SCH (07:58)
--- NOTE | 2016-10-03 13:44 | HHI.PR ---
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 had Emergent CT angiography with status post decompressive Craniectomy 09/02/16, since procedure has been vomiting, status post Tracheostomy placement, Status post PEG tube placement 09/16/16, has increased liver enzyme, new study showed no evidence of acute cholecystitis. 09/29: Strong movements on the Right hemibody at this time with his uncle he looks to understand when he talks with him and show some pictures, continue slowly improving. tracheostomy management as per foreclosure specialist. 10/03: Stable in his bedroom, seen in the presence of nurse Miss Kapoor and his and another relative, the patient is alert and oriented difficult for hi to get communication, he was tried to cap his tracheostomy, already reduced his tracheostomy tube to #6, continue present care continue supportive care, trying to remove Tracheostomy as soon as possible once out he may be moved to Rehabilitation area. Objective Vital Signs Date Time Temp Pulse Resp B/P Pulse Ox O2 Delivery O2 Flow Rate FiO2 10/03/16 12:00 104 10/03/16 12:00 99.3 104 18 123/78 94 10/03/16 08:00 95 10/03/16 08:00 99.1 95 9 115/66 96 10/03/16 07:32 11 10/03/16 07:00 96 T-Piece 5.00 28 10/03/16 04:00 99.3 104 14 115/71 96 10/03/16 04:00 104 10/03/16 02:24 14 10/03/16 00:00 96 10/03/16 00:00 98.8 96 12 130/87 100 10/02/16 20:05 97 T-piece 28 10/02/16 20:00 99.0 104 17 115/69 100 10/02/16 20:00 104 10/02/16 19:00 98 T-Piece 28 10/02/16 16:00 98.8 102 22 113/60 95 10/02/16 16:00 102 I/O 10/02/16 10/02/16 10/02/16 10/03/16 10/03/1624/17 07:00 15:00 23:00 07:00 15:00 23:00 Intake Total 1082 ml 1492 ml 798 ml 1232 ml Output Total 575 ml 350 ml 500 ml 500 ml Balance 507 ml 1142 ml 298 ml 732 ml IV Total 689 ml 975 ml 649 ml 836 ml Tube Feeding 273 ml 417 ml 89 ml 336 ml Tube Irrigant 60 ml 60 ml Other 120 ml 100 ml Output Urine Total 575 ml 350 ml 500 ml 500 ml # Bowel Movements 0 0 0 Result Diagram: 09/30/16 0630 09/30/16 0630 Imaging Last Impressions Chest X-Ray 09/29/16 0000 Signed Impressions: Service Date/Time: Thursday, September 29, 2016 20:45 - CONCLUSION: 1. Improved basilar airspace disease. Right PICC line in right atrium. Tracheostomy unchanged. Previous nasogastric tube removed. Galen Campos MD Hepatobiliary Scan Nuclear Medicine 09/20/16 0000 Signed Impressions: Service Date/Time: Tuesday, September 20, 2016 09:28 - CONCLUSION: Delayed filling of what appears to be a contracted gallbladder suggesting the possibility of gallbladder dysfunction but no acute cholecystitis or cystic/common bile duct obstruction. Al Wong MD Liver Ultrasound 09/18/16 0000 Signed Impressions: Service Date/Time: Sunday, September 18, 2016 08:42 - CONCLUSION: Minimal sludge in the gallbladder with gallbladder wall thickening. The patient does not appear to be tender over the gallbladder. Champ Pascal MD FACR Gastrostomy Tube Placement 09/16/16 0000 Signed Impressions: Service Date/Time: Friday, September 16, 2016 11:10 - CONCLUSION: Uncomplicated gastrostomy tube placement as above. Shady Shelby MD Abdomen X-Ray 09/10/16 0000 Signed Impressions: Service Date/Time: September 06:34 - CONCLUSION: Feeding tube tip in the stomach Al Hernandez MD Head CT 09/07/16 0600 Signed Impressions: Service Date/Time: Wednesday, September 07, 2016 06:05 - CONCLUSION: Stable brain appearance. Al Hernandez MD Neck CTA 09/01/162019 Signed Impressions: Service Date/Time: Thursday, September 01, 2016 20:55 - CONCLUSION: Unremarkable exam. The carotid arteries are intact. Ag Saxena MD Head CTA 09/01/162019 Signed Impressions: Service Date/Time: Thursday, September 01, 2016 20:55 - CONCLUSION: The etiology of the patient's right cerebellar h hemorrhage is not identified and there appears to be some infiltrates and possible pleural effusions in the upper lungs that are visualized. Erika Bob MD Procedures Endotracheal Intubation Decompressive Craniectomy 09/02/16 PEG tube placement 09/16/16 Other Results Laboratory Tests Test 09/30/16 06:30 White Blood Count 9.5 TH/MM3 Red Blood Count 4.08 MIL/MM3 Hemoglobin 11.3 GM/DL Hematocrit 33.6 % Mean Corpuscular Volume 82.5 FL Mean Corpuscular Hemoglobin 27.6 PG Mean Corpuscular Hemoglobin 33.5 % Concent Red Cell Distribution Width 14.6 % Platelet Count 373 TH/MM3 Mean Platelet Volume 9.4 FL Neutrophils (%) (Auto) 58.2 % Lymphocytes (%) (Auto) 20.5 % Monocytes (%) (Auto) 15.8 % Eosinophils (%) (Auto) 4.8 % Basophils (%) (Auto) 0.7 % Neutrophils # (Auto) 5.5 TH/MM3 Lymphocytes # (Auto) 1.9 TH/MM3 Monocytes # (Auto) 1.5 TH/MM3 Eosinophils # (Auto) 0.5 TH/MM3 Basophils # (Auto) 0.1 TH/MM3 CBC Comment DIFF FINAL Differential Comment Sodium Level 139 MEQ/L Potassium Level 3.9 MEQ/L Chloride Level 103 MEQ/L Carbon Dioxide Level 31.2 MEQ/L Anion Gap 5 MEQ/L Blood Urea Nitrogen 11 MG/DL Creatinine 1.03 MG/DL Estimat Glomerular Filtration 98 ML/MIN Rate Random Glucose 110 MG/DL Calcium Level 9.4 MG/DL Total Bilirubin 0.5 MG/DL Aspartate Amino Transf 41 U/L (AST/SGOT) Alanine Aminotransferase 89 U/L (ALT/SGPT) Alkaline Phosphatase 281 U/L Total Protein 8.2 GM/DL Albumin 2.4 GM/DL Objective Remarks GENERAL: No acute distress. SKIN: Warm and dry. HEAD: Normocephalic. EYES: No scleral icterus. No injection or drainage. NECK: Supple, trachea midline. No JVD or lymphadenopathy. Midline Tracheostomy. CARDIOVASCULAR: Regular rate and rhythm without murmurs, gallops, or rubs. RESPIRATORY: Breath sounds equal bilaterally. No accessory muscle use. GASTROINTESTINAL: Abdomen soft, non-tender, nondistended. PEG in place. MUSCULOSKELETAL: No cyanosis, or edema. BACK: Nontender without obvious deformity. No CVA tenderness. Medications and IVs Current Medications Medications (Trade) Dose Ordered Sig/Demetris Route Start Time Stop Time Status Last Admin (NS Flush) 2 ml UNSCH PRN .XX 09/01/16 21:00 (NS Flush) 2 ml BID .XX 09/01/16 21:00 10/03/16 07:55 (Protonix Inj) 40 mg DAILY IV 09/02/16 09:00 10/03/16 07:56 Miscellaneous Information 1 Q361D XX 09/01/16 21:00 (Chlorhexidine 2% Cloth) Taper DAILY@04 TOP 09/02/16 04:00 08/29/17 03:59 09/28/16 04:00 Chlorhexidine Gluconate 3 pack 3 pack UNSCH PRN TOP 09/01/16 21:00 Potassium Chloride 100 ml @ 50 mls/hr Q2H PRN IV 09/01/16 21:15 09/02/16 04:54 (KCl 20 Meq Premix Inj) 100 ml @ 50 mls/hr Q2H PRN IV 09/01/16 21:15 Potassium Bicarb/ Potassium Chloride 50 meq 50 meq UNSCH PRN PO 09/01/16 21:15 Potassium Chloride 100 ml @ 25 mls/hr UNSCH PRN IV 09/01/16 21:15 09/23/16 12:30 Potassium Chloride 100 ml @ 50 mls/hr Q2H PRN IV 09/01/16 21:15 (Magnesium Sulfate Inj/NS Inj) 100 ml @ 50 mls/hr UNSCH PRN IV 09/01/16 21:15 Magnesium Oxide 800 mg 800 mg UNSCH PRN PO 09/01/16 21:15 (Magnesium Sulfate Inj/NS Inj) 100 ml @ 50 mls/hr UNSCH PRN IV 09/01/16 21:15 09/02/16 08:18 Potassium Phosphate 2000 mg 2,000 mg Q4H PRN PO 09/01/16 21:15 (Sodium Phosphate Inj/NS 250 ml Inj) 250 ml @ 42 mls/hr UNSCH PRN IV 09/01/16 21:15 09/02/16 08:18 (K-Phos) 2,000 mg UNSCH PRN PO/TUBE 09/01/16 21:15 (D50w (Vial) Inj) 50 ml UNSCH PRN IV 09/01/16 21:15 (Glucagon Inj) 1 mg UNSCH PRN OTHER 09/01/16 21:15 (Peridex 0.12% Liq) 15 ml BID@08,20 MT 09/02/16 08:00 10/03/16 07:57 (Trandate Inj) 10 mg Q4H PRN IV PUSH 09/02/16 00:45 09/19/16 12:25 (Ofirmev Inj) 1,000 mg Q6H PRN IV 09/02/16 01:00 09/24/16 00:22 (Zofran Inj) 4 mg Q6HR PRN IV PUSH 09/02/16 01:00 10/02/16 22:13 (Reglan Liq) 10 mg ACHS PO 09/03/16 11:00 10/03/16 10:42 (Dulcolax Supp) 10 mg DAILY RECTAL 09/04/16 09:00 10/03/16 07:58 (Tania-Colace) 1 tab BID PO 09/03/16 09:45 10/03/16 07:58 (Lopressor Inj) 5 mg Q4H PRN IV PUSH 09/06/16 10:15 09/24/16 15:35 (NS Flush) See Protocol DAILY IV FLUSH 09/11/16 09:00 10/03/16 07:55 (NS Flush) See Protocol UNSCH PRN IV FLUSH 09/10/16 14:45 10/01/16 09:42 (Heparin Central Flush) See Protocol DAILY IV FLUSH 09/11/16 09:00 10/03/16 07:55 (Heparin Central Flush) See Protocol UNSCH PRN IV FLUSH 09/10/16 14:45 09/14/16 05:40 (NS Flush) UNSCH PRN IV FLUSH 09/10/16 14:45 (Thorazine Inj) 25 mg Q4H PRN IM 09/12/16 09:30 09/13/16 19:50 (Lopressor) 50 mg Q12HR PO 09/13/16 09:15 Hold 09/14/16 20:56 (Norvasc) 5 mg DAILY PO 09/13/16 09:15 10/03/16 07:58 (Haldol Inj) 5 mg Q4H PRN IV PUSH 09/14/16 10:45 09/30/16 01:15 (ZyPREXA ZYDIS ODT) 10 mg Q8H PO 09/14/16 12:00 10/03/16 10:42 (Dilaudid Pf Inj) 0.5 mg Q4H PRN IV PUSH 09/14/16 10:45 10/03/16 01:54 (Roxicodone Intensol Liq) 10 mg Q4H PO 09/14/16 11:00 10/03/16 10:42 (Inderal) 20 mg Q8HR PO 09/15/16 06:23 10/03/16 06:31 (Transderm-Scop 1.5 Mg Patch.72 Hr) 1 patch Q3D T-DERMAL 09/19/16 12:00 10/01/16 13:00 Miscellaneous Information 1 Q3D T-DERMAL 09/22/16 12:00 10/01/16 13:00 Enoxaparin Sodium 40 mg 40 mg Q24H SQ 09/21/16 14:00 10/02/16 13:42 (NS 1000 ml Inj) 1,000 ml @ 100 mls/hr Q10H IV 09/24/16 15:00 10/03/16 07:57 (Levsin Liq) 0.125 mg Q4H PRN PO 09/25/16 12:30 10/02/16 17:12 (Cardizem) 30 mg Q6HR PO 09/25/16 18:00 10/03/16 10:42 A/P Assessment and Plan 40 year old male admitted with a right cerebellar ICH. Status post craniectomy 09/01. Continue suction as needed. Levsin has had benefit. Continue occupational therapy, speech therapy, and physical therapy. Patient has had some movement in the left leg and arm, per family. No respiratory distress today. Status Post Acute right cerebellar hemorrhage L hemiparesis Status post suboccipital craniectomy with cerebellar hemorrhage evacuation and ventriculostomy on 09/01/16 Zyprexa continued Oxycodone continued Follow for fevers or hypothermia PT, OT, ST strong on the right hemibody, he has some movements on the left arm and Leg. Acute hypoxic and hypercarbic respiratory failure Aspiration Scheduled DuoNeb PRN Albuterol Enterobacter, Klebsiella in sputum, now Enterobacter is resistant to Rocephin. cefepime 2gm iv q8h started 09/15/16 completed for seven days, also had Tobramycin nebulized, for resistant Enterobacter Pulmonary Toilet and tracheostomy care Trach management per pulmonology, Cap trial performed Malignant Hypertension controlled Sinus tachycardia Continue Labetalol and hydralazine prn SBP <150. Continue Lopressor 5mg iv q4h prn for HR > 90. Continue Propranolol 20mg po q8h for tachycardia and agitation. Continue Norvasc 5 daily Elevated liver enzymes Improving through time Follow LFTs DVT Prophylaxis Lovenox, SCDs GI Prophylaxis Protonix Lines: PICC line No changes made to anterior assessment. Discussed with patient, his , another relative and his nurse Miss Carrington all questions answered to the best of my abilities. Discharge Planning Will need prolonged Rehabilitation but first will need to be cleared by foreclosure specialist. Martínez Bauer MD Oct 03, 2016 13:44
[2016-10-03] MEDS: ENOXAPARIN SODIUM 40 MG/0.4 ML SYRINGE SQ SCH (14:00)
[2016-10-03] MEDS ORDERED: DIATRIZOATE MEGLUM/DIATRIZOATE SOD 9 ML CUP PO ONE (14:39)
[2016-10-03] MEDS ORDERED: IOHEXOL 350 MG/ML 10 ML VIAL (for RAD DIAG) IV ONE (17:06)
--- NOTE | 2016-10-03 17:34 | RADRPT ---
EXAM DATE/TIME: 10/03/2016 17:01 [facility] COMPARISON: No previous studies available for comparison. INDICATIONS : Abdomen pain. IV CONTRAST: 95 cc Omnipaque 350 (iohexol) IV ORAL CONTRAST: Partial prescribed oral contrast ingested. RADIATION DOSE: 10.36 CTDIvol (mGy) MEDICAL HISTORY : Hemorrhage. SURGICAL HISTORY : Craniotomy. ENCOUNTER: Initial ACUITY: 1 day PAIN SCALE: 3/10 LOCATION: Bilateral abdomen. TECHNIQUE: Volumetric scanning of the abdomen and pelvis was performed. Using automated exposure control and ad justment of the mA and/or kV according to patient size, radiation dose was kept as low as reasonably achievable to obtain optimal diagnostic quality images. DICOM format image data is available electro nically for review and comparison. FINDINGS: LOWER LUNGS: There is linear atelectasis or scarring at the right lung base. LIVER: Homogeneous density without lesion. There is no dilation of the biliary tree. No calcified gallston es. SPLEEN: Normal size without lesion. PANCREAS: Within normal limits. KIDNEYS: Normal in size and shape. There is no mass, stone or hydronephrosis. ADRENAL GLANDS: Within normal limits. VASCULAR: There is no aortic aneurysm. BOWEL/MESENTERY: There is a G-tube in place. There are linear 9 mm metallic density seen at the lumen of the distal de scending colon and at the rectum. These may be from anchors from prior G-tube placement. Significant inflammatory change is not seen. The appendix appears to be within normal limits. ABDOMINAL WALL: Within normal limits. RETROPERITONEUM: There is no lymphadenopathy. BLADDER: There is a Kumar catheter in place. REPRODUCTIVE: Within normal limits. INGUINAL: There is no lymphadenopathy or hernia. MUSCULOSKELETAL: Within normal limits for patient age. CONCLUSION: 1. No definite acute abnormality is seen. 2. G-tube in good position. 3. 2 linear metallic densities seen at the distal descending colon and the rectum likely related to a nchors from the G-tube. Al Nixon MD on October 03, 2016 at 17:24 Board Certified Radiologist. This report was verified electronically.
[2016-10-03] MEDS: ONDANSETRON HCL 4 MG/2 ML VIAL IV PUSH PRN (19:46)
[2016-10-03] MEDS: RESP: ALBUTEROL 2.5 MG/3 ML NEB (PRN) INH (19:53)
[2016-10-03] MEDS: HYOSCYAMINE SOLN 0.125 MG/ML 15 ML BTL PO PRN (22:23)
[2016-10-04] VITALS (8 sets, daily range): BP systolic 111–136; BP diastolic 68–105; PULSE 98–108; RESP 11–22; TEMP 98.8–99.4; O2SAT 93–97
[2016-10-04] MEDS: DILTIAZEM HCL 30 MG TAB PO SCH ×5 (00:33→23:02)
[2016-10-04] MEDS: OLANZapine ODT 10 MG TAB PO SCH ×3 (03:09→22:58)
[2016-10-04] MEDS: CHLORHEXIDINE GLUCONATE 2 % 1 PACK (2 CLOTHS) TOP SCH (03:09)
[2016-10-04] MEDS: oxyCODONE HCL ORAL CONC 20 MG/ML SYRINGE PO SCH ×7 (03:09→23:00)
[2016-10-04] MEDS: PROPRANOLOL HCL 20 MG TAB PO SCH ×3 (06:55→22:58)
[2016-10-04] MEDS: SODIUM CHLOR 0.9% 1000 ML INJ 1,000 ML IV SCH ×2 (06:55→14:12)
[2016-10-04] MEDS: METOCLOPRAMIDE HCL SYRUP 10 MG/10 ML UDC PO SCH ×4 (06:55→23:00)
[2016-10-04] MEDS: CHLORHEXIDINE 0.12% (ORAL KIT) 15 ML CUP MT SCH ×2 (06:59→23:00)
[2016-10-04] MEDS: SODIUM CHLORIDE 0.9% FLUSH 10 ML FLUSH SCH ×2 (08:27→22:59)
[2016-10-04] MEDS: SODIUM CHLORIDE 0.9% FLUSH 10 ML FLUSH IV FLUSH SCH (08:27)
[2016-10-04] MEDS: BISACODYL 10 MG SUPP RECTAL SCH (08:28)
[2016-10-04] MEDS: PANTOPRAZOLE SODIUM 40 MG VIAL IV SCH (08:28)
[2016-10-04] MEDS: DOCUSATE SODIUM 50 MG/SENNA 8.6 MG TAB PO SCH ×2 (08:28→22:58)
[2016-10-04] MEDS: amLODIPine BESYLATE 5 MG TAB PO SCH (08:28)
--- NOTE | 2016-10-04 10:19 | HHI.PR ---
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 had Emergent CT angiography with status post decompressive Craniectomy 09/02/16, since procedure has been vomiting, status post Tracheostomy placement, Status post PEG tube placement 09/16/16, has increased liver enzyme, new study showed no evidence of acute cholecystitis. 09/29: Strong movements on the Right hemibody at this time with his uncle he looks to understand when he talks with him and show some pictures, continue slowly improving. tracheostomy management as per psychiatric specialist. 10/03: Stable in his bedroom, seen in the presence of nurse Miss Kapoor and his and another relative, the patient is alert and oriented difficult for hi to get communication, he was tried to cap his tracheostomy, already reduced his tracheostomy tube to #6, continue present care continue supportive care, trying to remove Tracheostomy as soon as possible once out he may be moved to Rehabilitation area. 10/04: Seen in his bedroom, and discussed with nurse Miss Kapoor, the patient vomited yesterday after he was repositioned by some family members, discussed with nurse and has to be ruled out Aspiration, new CXR no acute infiltrates. continue present care. Objective Vital Signs Date Time Temp Pulse Resp B/P Pulse Ox O2 Delivery O2 Flow Rate FiO2 10/04/16 08:15 96 T-piece 21 10/04/16 08:00 102 10/04/16 08:00 98.8 101 13 111/76 97 10/04/16 07:00 95 Room Air 6.00 21 T-Piece 10/04/16 04:00 99.1 108 22 136/105 96 10/04/16 04:00 108 10/04/16 00:00 99.4 98 13 118/80 95 10/04/16 00:00 98 10/03/16 23:23 18 10/03/16 20:16 17 10/03/16 20:00 99.1 113 16 147/100 100 10/03/16 20:00 113 10/03/16 19:50 93 T-piece 21 10/03/16 19:00 96 Room Air T-Piece 10/03/16 16:00 101 9 125/75 95 10/03/16 16:00 101 10/03/16 12:00 104 10/03/16 12:00 99.3 104 18 123/78 94 I/O 10/03/16 10/03/16 10/03/16 10/04/16 10/04/16 10/04/16 07:00 15:00 23:00 07:00 15:00 23:00 Intake Total 1232 ml 1062 ml 1127 ml 668 ml Output Total 500 ml 1550 ml 2050 ml 600 ml Balance 732 ml -488 ml -923 ml 68 ml IV Total 836 ml 616 ml 816 ml 451 ml Tube Feeding 336 ml 346 ml 251 ml 157 ml Tube Irrigant 60 ml 60 ml 60 ml Other 100 ml Output Urine Total 500 ml 1550 ml 2050 ml 600 ml # Bowel Movements 0 0 0 0 Result Diagram: 09/30/16 0630 09/30/16 0630 Imaging Last Impressions Abdomen/Pelvis CT 10/03/16 0000 Signed Impressions: Service Date/Time: Monday, October 03, 2016 17:01 - CONCLUSION: 1. No definite acute abnormality is seen. 2. G-tube in good position. 3. 2 linear metallic densities seen at the distal descending colon and the rectum likely related to anchors from the G-tube. Al Nixon MD Chest X-Ray 09/29/16 0000 Signed Impressions: Service Date/Time: Thursday, September 29, 2016 20:45 - CONCLUSION: 1. Improved basilar airspace disease. Right PICC line in right atrium. Tracheostomy unchanged. Previous nasogastric tube removed. Galen Campos MD Hepatobiliary Scan Nuclear Medicine 09/20/16 0000 Signed Impressions: Service Date/Time: Tuesday, September 20, 2016 09:28 - CONCLUSION: Delayed filling of what appears to be a contracted gallbladder suggesting the possibility of gallbladder dysfunction but no acute cholecystitis or cystic/common bile duct obstruction. Al Wong MD Liver Ultrasound 09/18/16 0000 Signed Impressions: Service Date/Time: Sunday, September 18, 2016 08:42 - CONCLUSION: Minimal sludge in the gallbladder with gallbladder wall thickening. The patient does not appear to be tender over the gallbladder. Champ Pascal MD FACR Gastrostomy Tube Placement 09/16/16 0000 Signed Impressions: Service Date/Time: Friday, September 16, 2016 11:10 - CONCLUSION: Uncomplicated gastrostomy tube placement as above. Shady Shelby MD Abdomen X-Ray 09/10/16 0000 Signed Impressions: Service Date/Time: September 06:34 - CONCLUSION: Feeding tube tip in the stomach Al Hernandez MD Head CT 09/07/16 0600 Signed Impressions: Service Date/Time: Wednesday, September 07, 2016 06:05 - CONCLUSION: Stable brain appearance. Al Hernandez MD Neck CTA 09/01/162019 Signed Impressions: Service Date/Time: Thursday, September 01, 2016 20:55 - CONCLUSION: Unremarkable exam. The carotid arteries are intact. Ag Saxena MD Head CTA 09/01/162019 Signed Impressions: Service Date/Time: Thursday, September 01, 2016 20:55 - CONCLUSION: The etiology of the patient's right cerebellar h hemorrhage is not identified and there appears to be some infiltrates and possible pleural effusions in the upper lungs that are visualized. Erika Bob MD Procedures Endotracheal Intubation Decompressive Craniectomy 09/02/16 PEG tube placement 09/16/16 Other Results Laboratory Tests Test 09/30/16 06:30 White Blood Count 9.5 TH/MM3 Red Blood Count 4.08 MIL/MM3 Hemoglobin 11.3 GM/DL Hematocrit 33.6 % Mean Corpuscular Volume 82.5 FL Mean Corpuscular Hemoglobin 27.6 PG Mean Corpuscular Hemoglobin 33.5 % Concent Red Cell Distribution Width 14.6 % Platelet Count 373 TH/MM3 Mean Platelet Volume 9.4 FL Neutrophils (%) (Auto) 58.2 % Lymphocytes (%) (Auto) 20.5 % Monocytes (%) (Auto) 15.8 % Eosinophils (%) (Auto) 4.8 % Basophils (%) (Auto) 0.7 % Neutrophils # (Auto) 5.5 TH/MM3 Lymphocytes # (Auto) 1.9 TH/MM3 Monocytes # (Auto) 1.5 TH/MM3 Eosinophils # (Auto) 0.5 TH/MM3 Basophils # (Auto) 0.1 TH/MM3 CBC Comment DIFF FINAL Differential Comment Sodium Level 139 MEQ/L Potassium Level 3.9 MEQ/L Chloride Level 103 MEQ/L Carbon Dioxide Level 31.2 MEQ/L Anion Gap 5 MEQ/L Blood Urea Nitrogen 11 MG/DL Creatinine 1.03 MG/DL Estimat Glomerular Filtration 98 ML/MIN Rate Random Glucose 110 MG/DL Calcium Level 9.4 MG/DL Total Bilirubin 0.5 MG/DL Aspartate Amino Transf 41 U/L (AST/SGOT) Alanine Aminotransferase 89 U/L (ALT/SGPT) Alkaline Phosphatase 281 U/L Total Protein 8.2 GM/DL Albumin 2.4 GM/DL Objective Remarks GENERAL: No acute distress. SKIN: Warm and dry. HEAD: Normocephalic. EYES: No scleral icterus. No injection or drainage. NECK: Supple, trachea midline. No JVD or lymphadenopathy. Midline Tracheostomy. CARDIOVASCULAR: Regular rate and rhythm without murmurs, gallops, or rubs. RESPIRATORY: Breath sounds equal bilaterally. No accessory muscle use. GASTROINTESTINAL: Abdomen soft, non-tender, nondistended. PEG in place. MUSCULOSKELETAL: No cyanosis, or edema. BACK: Nontender without obvious deformity. No CVA tenderness. Medications and IVs Current Medications Medications (Trade) Dose Ordered Sig/Demetris Route Start Time Stop Time Status Last Admin (NS Flush) 2 ml UNSCH PRN .XX 09/01/16 21:00 (NS Flush) 2 ml BID .XX 09/01/16 21:00 10/04/16 08:27 (Protonix Inj) 40 mg DAILY IV 09/02/16 09:00 10/04/16 08:28 Miscellaneous Information 1 Q361D XX 09/01/16 21:00 (Chlorhexidine 2% Cloth) Taper DAILY@04 TOP 09/02/16 04:00 08/29/17 03:59 09/28/16 04:00 Chlorhexidine Gluconate 3 pack 3 pack UNSCH PRN TOP 09/01/16 21:00 Potassium Chloride 100 ml @ 50 mls/hr Q2H PRN IV 09/01/16 21:15 09/02/16 04:54 (KCl 20 Meq Premix Inj) 100 ml @ 50 mls/hr Q2H PRN IV 09/01/16 21:15 Potassium Bicarb/ Potassium Chloride 50 meq 50 meq UNSCH PRN PO 09/01/16 21:15 Potassium Chloride 100 ml @ 25 mls/hr UNSCH PRN IV 09/01/16 21:15 09/23/16 12:30 Potassium Chloride 100 ml @ 50 mls/hr Q2H PRN IV 09/01/16 21:15 (Magnesium Sulfate Inj/NS Inj) 100 ml @ 50 mls/hr UNSCH PRN IV 09/01/16 21:15 Magnesium Oxide 800 mg 800 mg UNSCH PRN PO 09/01/16 21:15 (Magnesium Sulfate Inj/NS Inj) 100 ml @ 50 mls/hr UNSCH PRN IV 09/01/16 21:15 09/02/16 08:18 Potassium Phosphate 2000 mg 2,000 mg Q4H PRN PO 09/01/16 21:15 (Sodium Phosphate Inj/NS 250 ml Inj) 250 ml @ 42 mls/hr UNSCH PRN IV 09/01/16 21:15 09/02/16 08:18 (K-Phos) 2,000 mg UNSCH PRN PO/TUBE 09/01/16 21:15 (D50w (Vial) Inj) 50 ml UNSCH PRN IV 09/01/16 21:15 (Glucagon Inj) 1 mg UNSCH PRN OTHER 09/01/16 21:15 (Peridex 0.12% Liq) 15 ml BID@08,20 MT 09/02/16 08:00 10/03/16 19:56 (Trandate Inj) 10 mg Q4H PRN IV PUSH 09/02/16 00:45 09/19/16 12:25 (Ofirmev Inj) 1,000 mg Q6H PRN IV 09/02/16 01:00 09/24/16 00:22 (Zofran Inj) 4 mg Q6HR PRN IV PUSH 09/02/16 01:00 10/03/16 19:46 (Reglan Liq) 10 mg ACHS PO 09/03/16 11:00 10/04/16 06:55 (Dulcolax Supp) 10 mg DAILY RECTAL 09/04/16 09:00 10/04/16 08:28 (Tania-Colace) 1 tab BID PO 09/03/16 09:45 10/04/16 08:28 (Lopressor Inj) 5 mg Q4H PRN IV PUSH 09/06/16 10:15 09/24/16 15:35 (NS Flush) See Protocol DAILY IV FLUSH 09/11/16 09:00 10/04/16 08:27 (NS Flush) See Protocol UNSCH PRN IV FLUSH 09/10/16 14:45 10/01/16 09:42 (Heparin Central Flush) See Protocol DAILY IV FLUSH 09/11/16 09:00 10/04/16 08:28 (Heparin Central Flush) See Protocol UNSCH PRN IV FLUSH 09/10/16 14:45 09/14/16 05:40 (NS Flush) UNSCH PRN IV FLUSH 09/10/16 14:45 (Thorazine Inj) 25 mg Q4H PRN IM 09/12/16 09:30 09/13/16 19:50 (Lopressor) 50 mg Q12HR PO 09/13/16 09:15 Hold 09/14/16 20:56 (Norvasc) 5 mg DAILY PO 09/13/16 09:15 10/04/16 08:28 (Haldol Inj) 5 mg Q4H PRN IV PUSH 09/14/16 10:45 09/30/16 01:15 (ZyPREXA ZYDIS ODT) 10 mg Q8H PO 09/14/16 12:00 10/04/16 03:09 (Dilaudid Pf Inj) 0.5 mg Q4H PRN IV PUSH 09/14/16 10:45 10/03/16 19:46 (Roxicodone Intensol Liq) 10 mg Q4H PO 09/14/16 11:00 10/04/16 06:55 (Inderal) 20 mg Q8HR PO 09/15/16 06:23 10/04/16 06:55 (Transderm-Scop 1.5 Mg Patch.72 Hr) 1 patch Q3D T-DERMAL 09/19/16 12:00 10/01/16 13:00 Miscellaneous Information 1 Q3D T-DERMAL 09/22/16 12:00 10/01/16 13:00 Enoxaparin Sodium 40 mg 40 mg Q24H SQ 09/21/16 14:00 10/02/16 13:42 (NS 1000 ml Inj) 1,000 ml @ 100 mls/hr Q10H IV 09/24/16 15:00 10/04/16 06:55 (Levsin Liq) 0.125 mg Q4H PRN PO 09/25/16 12:30 10/03/16 22:23 (Cardizem) 30 mg Q6HR PO 09/25/16 18:00 10/04/16 06:55 A/P Assessment and Plan 40 year old male admitted with a right cerebellar ICH. Status post craniectomy 09/01. Continue suction as needed. Levsin has had benefit. Continue occupational therapy, speech therapy, and physical therapy. Patient has had some movement in the left leg and arm, per family. No respiratory distress today. Status Post Acute right cerebellar hemorrhage L hemiparesis Status post suboccipital craniectomy with cerebellar hemorrhage evacuation and ventriculostomy on 09/01/16 Zyprexa continued Oxycodone continued Follow for fevers or hypothermia PT, OT, ST strong on the right hemibody, he has some movements on the left arm and Leg. Acute hypoxic and hypercarbic respiratory failure Aspiration Scheduled DuoNeb PRN Albuterol Enterobacter, Klebsiella in sputum, now Enterobacter is resistant to Rocephin. cefepime 2gm iv q8h started 09/15/16 completed for seven days, also had Tobramycin nebulized, for resistant Enterobacter Pulmonary Toilet and tracheostomy care Trach management per pulmonology, Cap trial performed had an episode of vomit after he was repositioned by relatives, new CXR no infiltrates. Malignant Hypertension controlled Sinus tachycardia Continue Labetalol and hydralazine prn SBP <150. Continue Lopressor 5mg iv q4h prn for HR > 90. Continue Propranolol 20mg po q8h for tachycardia and agitation. Continue Norvasc 5 daily Elevated liver enzymes Improving through time Follow LFTs DVT Prophylaxis Lovenox, SCDs GI Prophylaxis Protonix Lines: PICC line No changes made to anterior assessment. Discussed with patient and nurse Miss Kapoor all questions answered to the best of my abilities. Discharge Planning Will need prolonged Rehabilitation but first will need to be cleared by psychiatric specialist. Martínez Bauer MD Oct 04, 2016 10:19
--- NOTE | 2016-10-04 11:01 | RADRPT ---
EXAM DATE/TIME: 10/04/2016 10:26 [facility] COMPARISON: CHEST SINGLE AP, September 29, 2016, 20:45. INDICATIONS : Short of breath. MEDICAL HISTORY : Stroke. Hypertension SURGICAL HISTORY : None. ENCOUNTER: Subsequent ACUITY: 1 month PAIN SCORE: Non-responsive. LOCATION: Bilateral chest FINDINGS: A single view of the chest demonstrates the lungs to be symmetrically aerated without evidence of mas s, infiltrate or effusion. The platelike atelectasis in the right lower lung has resolved. Tracheost canelo tube and right PICC line remain in place. There is no pneumothorax. The cardiomediastinal contour s are unremarkable. Osseous structures are intact. CONCLUSION: No acute pulmonary infiltrates. Reuben Fowler MD on October 04, 2016 at 10:58 Board Certified Radiologist. This report was verified electronically.
[2016-10-04] MEDS: REMOVE OLD SCOPOLAMINE PATCH T-DERMAL SCH (11:31)
[2016-10-04] MEDS: SCOPOLAMINE 1.5 MG PATCH T-DERMAL SCH (11:31)
[2016-10-04] MEDS: HYOSCYAMINE SOLN 0.125 MG/ML 15 ML BTL PO PRN (12:51)
[2016-10-04] MEDS: HYDROmorphone HCL PF 1 MG/ML VIAL IV PUSH PRN (12:51)
[2016-10-04] MEDS: ENOXAPARIN SODIUM 40 MG/0.4 ML SYRINGE SQ SCH (13:22)
[2016-10-04] MEDS: ONDANSETRON HCL 4 MG/2 ML VIAL IV PUSH PRN (18:39)
[2016-10-04] MEDS: RESP: ALBUTEROL 2.5 MG/3 ML NEB (PRN) INH (22:21)
[2016-10-04] MEDS: HALOPERIDOL LACTATE 5 MG/ML AMP IV PUSH PRN (23:02)
[2016-10-05] VITALS (8 sets, daily range): BP systolic 120–141; BP diastolic 82–101; PULSE 92–120; RESP 12–28; TEMP 98.2–99.3; O2SAT 92–97
[2016-10-05] MEDS: HYDROmorphone HCL PF 1 MG/ML VIAL IV PUSH PRN (00:06)
[2016-10-05] MEDS: ONDANSETRON HCL 4 MG/2 ML VIAL IV PUSH PRN ×2 (00:07→14:49)
[2016-10-05] MEDS: SODIUM CHLOR 0.9% 1000 ML INJ 1,000 ML IV SCH ×2 (01:32→11:00)
[2016-10-05] MEDS: CHLORHEXIDINE GLUCONATE 2 % 1 PACK (2 CLOTHS) TOP SCH (03:15)
[2016-10-05] MEDS: oxyCODONE HCL ORAL CONC 20 MG/ML SYRINGE PO SCH ×6 (04:05→23:35)
[2016-10-05] MEDS: OLANZapine ODT 10 MG TAB PO SCH ×3 (04:05→20:22)
[2016-10-05] MEDS: PROPRANOLOL HCL 20 MG TAB PO SCH ×3 (06:30→20:28)
[2016-10-05] MEDS: METOCLOPRAMIDE HCL SYRUP 10 MG/10 ML UDC PO SCH ×4 (06:30→20:23)
[2016-10-05] MEDS: DILTIAZEM HCL 30 MG TAB PO SCH ×4 (06:30→23:35)
[2016-10-05] MEDS: CHLORHEXIDINE 0.12% (ORAL KIT) 15 ML CUP MT SCH ×2 (08:00→20:22)
[2016-10-05] MEDS: SODIUM CHLORIDE 0.9% FLUSH 10 ML FLUSH IV FLUSH SCH (09:00)
[2016-10-05] MEDS: SODIUM CHLORIDE 0.9% FLUSH 10 ML FLUSH SCH ×2 (09:00→20:23)
[2016-10-05] MEDS: BISACODYL 10 MG SUPP RECTAL SCH (09:16)
[2016-10-05] MEDS: DOCUSATE SODIUM 50 MG/SENNA 8.6 MG TAB PO SCH ×2 (09:16→20:22)
[2016-10-05] MEDS: amLODIPine BESYLATE 5 MG TAB PO SCH (09:16)
[2016-10-05] MEDS: PANTOPRAZOLE SODIUM 40 MG VIAL IV SCH (09:18)
[2016-10-05] MEDS ORDERED: guaiFENesin E.R. 600 MG TAB PO SCH (12:30)
[2016-10-05] MEDS ORDERED: LACTULOSE SYRUP 20 GM/30 ML CUP PEG ONE (12:30)
[2016-10-05] MEDS: ENOXAPARIN SODIUM 40 MG/0.4 ML SYRINGE SQ SCH (14:10)
[2016-10-05] MEDS: guaiFENesin SOLUTION 200 MG/10 ML CUP PEG SCH ×3 (14:50→20:28)
--- NOTE | 2016-10-05 15:06 | HHI.PR ---
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 had Emergent CT angiography with status post decompressive Craniectomy 09/02/16, since procedure has been vomiting, status post Tracheostomy placement, Status post PEG tube placement 09/16/16, has increased liver enzyme, new study showed no evidence of acute cholecystitis. 09/29: Strong movements on the Right hemibody at this time with his uncle he looks to understand when he talks with him and show some pictures, continue slowly improving. tracheostomy management as per parts specialist. 10/03: Stable in his bedroom, seen in the presence of nurse Miss Kapoor and his and another relative, the patient is alert and oriented difficult for hi to get communication, he was tried to cap his tracheostomy, already reduced his tracheostomy tube to #6, continue present care continue supportive care, trying to remove Tracheostomy as soon as possible once out he may be moved to Rehabilitation area. 10/04: Seen in his bedroom, and discussed with nurse Miss Kapoor, the patient vomited yesterday after he was repositioned by some family members, discussed with nurse and has to be ruled out Aspiration, new CXR no acute infiltrates. continue present care. 10/05: Patient continue with medical management, continue to try to cap his Tracheostomy tube, discussed with nurse Miss Lomas about IV fluids were discontinued, asked for Mucolytic discussed with pharmacy and given in liquid form through PEG tube, has Constipation given Lactulose, probable will need low dose of Seroquel. later during the day the patient lost his Tracheostomy tube and was replaced without difficulty by RT team. no new issues.seen in the presence of his Uncle. Objective Vital Signs Date Time Temp Pulse Resp B/P Pulse Ox O2 Delivery O2 Flow Rate FiO2 10/05/16 12:00 111 10/05/16 12:00 98.9 111 18 132/86 93 10/05/16 08:00 92 10/05/16 08:00 98.7 92 12 120/82 95 10/05/16 07:00 95 T-piece 5.00 21 10/05/16 07:00 93 T-Piece 28 10/05/16 05:05 14 10/05/16 04:00 114 10/05/16 04:00 99.0 114 21 141/99 95 10/05/16 00:36 18 10/05/16 00:00 99.3 118 28 132/82 92 10/05/16 00:00 118 10/04/16 20:30 94 T-piece 21 10/04/16 20:00 104 10/04/16 20:00 99.0 104 16 131/95 94 10/04/16 19:00 94 T-Piece 28 10/04/16 16:00 99.4 98 11 116/77 93 10/04/16 16:00 98 I/O 10/04/16 10/04/16 10/04/16 10/05/16 10/05/16 10/05/16 07:00 15:00 23:00 07:00 15:00 23:00 Intake Total 668 ml 1230 ml 1423 ml 884 ml 1093 ml Output Total 600 ml 1025 ml 1050 ml 700 ml 950 ml Balance 68 ml 205 ml 373 ml 184 ml 143 ml IV Total 451 ml 704 ml 948 ml 539 ml 580 ml Tube Feeding 157 ml 326 ml 415 ml 285 ml 393 ml Tube Irrigant 60 ml 60 ml 60 ml 120 ml Other 200 ml Output Urine Total 600 ml 1025 ml 1050 ml 700 ml 950 ml # Bowel Movements 0 0 0 0 Imaging Last Impressions Chest X-Ray 10/04/16 0000 Signed Impressions: Service Date/Time: Tuesday, October 04, 2016 10:26 - CONCLUSION: No acute pulmonary infiltrates. Reuben Fowler MD Abdomen/Pelvis CT 10/03/16 0000 Signed Impressions: Service Date/Time: Monday, October 03, 2016 17:01 - CONCLUSION: 1. No definite acute abnormality is seen. 2. G-tube in good position. 3. 2 linear metallic densities seen at the distal descending colon and the rectum likely related to anchors from the G-tube. Al Nixon MD Hepatobiliary Scan Nuclear Medicine 09/20/16 0000 Signed Impressions: Service Date/Time: Tuesday, September 20, 2016 09:28 - CONCLUSION: Delayed filling of what appears to be a contracted gallbladder suggesting the possibility of gallbladder dysfunction but no acute cholecystitis or cystic/common bile duct obstruction. Al Wong MD Liver Ultrasound 09/18/16 0000 Signed Impressions: Service Date/Time: Sunday, September 18, 2016 08:42 - CONCLUSION: Minimal sludge in the gallbladder with gallbladder wall thickening. The patient does not appear to be tender over the gallbladder. Champ Pascal MD FACR Gastrostomy Tube Placement 09/16/16 0000 Signed Impressions: Service Date/Time: Friday, September 16, 2016 11:10 - CONCLUSION: Uncomplicated gastrostomy tube placement as above. Shady Shelby MD Abdomen X-Ray 09/10/16 0000 Signed Impressions: Service Date/Time: September 06:34 - CONCLUSION: Feeding tube tip in the stomach Al Hernandez MD Head CT 09/07/16 0600 Signed Impressions: Service Date/Time: Wednesday, September 07, 2016 06:05 - CONCLUSION: Stable brain appearance. Al Hernandez MD Neck CTA 09/01/162019 Signed Impressions: Service Date/Time: Thursday, September 01, 2016 20:55 - CONCLUSION: Unremarkable exam. The carotid arteries are intact. Ag Saxena MD Head CTA 09/01/162019 Signed Impressions: Service Date/Time: Thursday, September 01, 2016 20:55 - CONCLUSION: The etiology of the patient's right cerebellar h hemorrhage is not identified and there appears to be some infiltrates and possible pleural effusions in the upper lungs that are visualized. Erika Bob MD Procedures Endotracheal Intubation Decompressive Craniectomy 09/02/16 PEG tube placement 09/16/16 Other Results No new laboratory will get for tomorrow. Objective Remarks GENERAL: No acute distress. SKIN: Warm and dry. HEAD: Normocephalic. EYES: No scleral icterus. No injection or drainage. NECK: Supple, trachea midline. No JVD or lymphadenopathy. Midline Tracheostomy. CARDIOVASCULAR: Regular rate and rhythm without murmurs, gallops, or rubs. RESPIRATORY: Breath sounds equal bilaterally. No accessory muscle use. GASTROINTESTINAL: Abdomen soft, non-tender, nondistended. PEG in place. MUSCULOSKELETAL: No cyanosis, or edema. BACK: Nontender without obvious deformity. No CVA tenderness. Medications and IVs Current Medications Medications (Trade) Dose Ordered Sig/Demetris Route Start Time Stop Time Status Last Admin (NS Flush) 2 ml UNSCH PRN .XX 09/01/16 21:00 (NS Flush) 2 ml BID .XX 09/01/16 21:00 10/04/16 22:59 (Protonix Inj) 40 mg DAILY IV 09/02/16 09:00 10/05/16 09:18 Miscellaneous Information 1 Q361D XX 09/01/16 21:00 (Chlorhexidine 2% Cloth) Taper DAILY@04 TOP 09/02/16 04:00 08/29/17 03:59 09/28/16 04:00 Chlorhexidine Gluconate 3 pack 3 pack UNSCH PRN TOP 09/01/16 21:00 Potassium Chloride 100 ml @ 50 mls/hr Q2H PRN IV 09/01/16 21:15 09/02/16 04:54 (KCl 20 Meq Premix Inj) 100 ml @ 50 mls/hr Q2H PRN IV 09/01/16 21:15 Potassium Bicarb/ Potassium Chloride 50 meq 50 meq UNSCH PRN PO 09/01/16 21:15 Potassium Chloride 100 ml @ 25 mls/hr UNSCH PRN IV 09/01/16 21:15 09/23/16 12:30 Potassium Chloride 100 ml @ 50 mls/hr Q2H PRN IV 09/01/16 21:15 (Magnesium Sulfate Inj/NS Inj) 100 ml @ 50 mls/hr UNSCH PRN IV 09/01/16 21:15 Magnesium Oxide 800 mg 800 mg UNSCH PRN PO 09/01/16 21:15 (Magnesium Sulfate Inj/NS Inj) 100 ml @ 50 mls/hr UNSCH PRN IV 09/01/16 21:15 09/02/16 08:18 Potassium Phosphate 2000 mg 2,000 mg Q4H PRN PO 09/01/16 21:15 (Sodium Phosphate Inj/NS 250 ml Inj) 250 ml @ 42 mls/hr UNSCH PRN IV 09/01/16 21:15 09/02/16 08:18 (K-Phos) 2,000 mg UNSCH PRN PO/TUBE 09/01/16 21:15 (D50w (Vial) Inj) 50 ml UNSCH PRN IV 09/01/16 21:15 (Glucagon Inj) 1 mg UNSCH PRN OTHER 09/01/16 21:15 (Peridex 0.12% Liq) 15 ml BID@08,20 MT 09/02/16 08:00 10/05/16 08:00 (Trandate Inj) 10 mg Q4H PRN IV PUSH 09/02/16 00:45 09/19/16 12:25 (Ofirmev Inj) 1,000 mg Q6H PRN IV 09/02/16 01:00 09/24/16 00:22 (Zofran Inj) 4 mg Q6HR PRN IV PUSH 09/02/16 01:00 10/05/16 14:49 (Reglan Liq) 10 mg ACHS PO 09/03/16 11:00 10/05/16 11:10 (Dulcolax Supp) 10 mg DAILY RECTAL 09/04/16 09:00 10/05/16 09:16 (Tania-Colace) 1 tab BID PO 09/03/16 09:45 10/05/16 09:16 (Lopressor Inj) 5 mg Q4H PRN IV PUSH 09/06/16 10:15 09/24/16 15:35 (NS Flush) See Protocol DAILY IV FLUSH 09/11/16 09:00 10/04/16 08:27 (NS Flush) See Protocol UNSCH PRN IV FLUSH 09/10/16 14:45 10/01/16 09:42 (Heparin Central Flush) See Protocol DAILY IV FLUSH 09/11/16 09:00 10/05/16 09:15 (Heparin Central Flush) See Protocol UNSCH PRN IV FLUSH 09/10/16 14:45 09/14/16 05:40 (NS Flush) UNSCH PRN IV FLUSH 09/10/16 14:45 (Thorazine Inj) 25 mg Q4H PRN IM 09/12/16 09:30 09/13/16 19:50 (Lopressor) 50 mg Q12HR PO 09/13/16 09:15 Hold 09/14/16 20:56 (Norvasc) 5 mg DAILY PO 09/13/16 09:15 10/05/16 09:16 (Haldol Inj) 5 mg Q4H PRN IV PUSH 09/14/16 10:45 10/04/16 23:02 (ZyPREXA ZYDIS ODT) 10 mg Q8H PO 09/14/16 12:00 10/05/16 11:10 (Dilaudid Pf Inj) 0.5 mg Q4H PRN IV PUSH 09/14/16 10:45 10/05/16 00:06 (Roxicodone Intensol Liq) 10 mg Q4H PO 09/14/16 11:00 10/05/16 14:50 (Inderal) 20 mg Q8HR PO 09/15/16 06:23 10/05/16 14:10 (Transderm-Scop 1.5 Mg Patch.72 Hr) 1 patch Q3D T-DERMAL 09/19/16 12:00 10/04/16 11:31 Miscellaneous Information 1 Q3D T-DERMAL 09/22/16 12:00 10/04/16 11:31 (Lovenox Inj) 40 mg Q24H SQ 09/21/16 14:00 10/05/16 14:10 (Levsin Liq) 0.125 mg Q4H PRN PO 09/25/16 12:30 10/04/16 12:51 (Cardizem) 30 mg Q6HR PO 09/25/16 18:00 10/05/16 11:10 (Robitussin Liq) 200 mg Q4H PEG 10/05/16 14:00 10/05/16 14:50 A/P Assessment and Plan 40 year old male admitted with a right cerebellar ICH. Status post craniectomy 09/01. Continue suction as needed. Levsin has had benefit. Continue occupational therapy, speech therapy, and physical therapy. Patient has had some movement in the left leg and arm, per family. No respiratory distress today. Status Post Acute right cerebellar hemorrhage L hemiparesis Status post suboccipital craniectomy with cerebellar hemorrhage evacuation and ventriculostomy on 09/01/16 Zyprexa continued Oxycodone continued Follow for fevers or hypothermia PT, OT, ST strong on the right hemibody, he has some movements on the left arm and Leg. Acute hypoxic and hypercarbic respiratory failure Aspiration Scheduled DuoNeb PRN Albuterol Enterobacter, Klebsiella in sputum, now Enterobacter is resistant to Rocephin. cefepime 2gm iv q8h started 09/15/16 completed for seven days, also had Tobramycin nebulized, for resistant Enterobacter Pulmonary Toilet and tracheostomy care Trach management per pulmonology, Cap trial performed had an episode of vomit after he was repositioned by relatives, new CXR no infiltrates. Malignant Hypertension controlled Sinus tachycardia Continue Labetalol and hydralazine prn SBP <150. Continue Lopressor 5mg iv q4h prn for HR > 90. Continue Propranolol 20mg po q8h for tachycardia and agitation. Continue Norvasc 5 daily Elevated liver enzymes Improving through time Follow LFTs DVT Prophylaxis Lovenox, SCDs GI Prophylaxis Protonix Lines: PICC line No changes made to anterior assessment. Discussed with patient, his Uncle and nurse Miss Lomas, all questions answered to the best of my abilities. Discharge Planning Will need prolonged Rehabilitation but first will need to be cleared by parts specialist. Martínez Bauer MD Oct 05, 2016 15:05
--- NOTE | 2016-10-05 16:33 | HHI.PR ---
Subjective Remarks ASS NO DISTRESS TRACH OK FENESTRATED TRACH PLACED removed his trach this am replaced without any problems Objective Vital Signs Date Time Temp Pulse Resp B/P Pulse Ox O2 Delivery O2 Flow Rate FiO2 10/05/16 16:00 109 10/05/16 16:00 99.1 109 26 124/101 97 10/05/16 12:00 111 10/05/16 12:00 98.9 111 18 132/86 93 10/05/16 08:00 92 10/05/16 08:00 98.7 92 12 120/82 95 10/05/16 07:00 95 T-piece 5.00 21 10/05/16 07:00 93 T-Piece 28 10/05/16 05:05 14 10/05/16 04:00 114 10/05/16 04:00 99.0 114 21 141/99 95 10/05/16 00:36 18 10/05/16 00:00 99.3 118 28 132/82 92 10/05/16 00:00 118 10/04/16 20:30 94 T-piece 21 10/04/16 20:00 104 10/04/16 20:00 99.0 104 16 131/95 94 10/04/16 19:00 94 T-Piece 28 I/O 10/04/16 10/04/16 10/04/16 10/05/16 10/05/16 10/05/16 07:00 15:00 23:00 07:00 15:00 23:00 Intake Total 668 ml 1230 ml 1423 ml 884 ml 1093 ml Output Total 600 ml 1025 ml 1050 ml 700 ml 950 ml Balance 68 ml 205 ml 373 ml 184 ml 143 ml IV Total 451 ml 704 ml 948 ml 539 ml 580 ml Tube Feeding 157 ml 326 ml 415 ml 285 ml 393 ml Tube Irrigant 60 ml 60 ml 60 ml 120 ml Other 200 ml Output Urine Total 600 ml 1025 ml 1050 ml 700 ml 950 ml # Bowel Movements 0 0 0 0 Procedures Endotracheal Intubation Decompressive Craniectomy 09/02/16 PEG tube placement 09/16/16 Objective Remarks GENERAL: SKIN: Warm and dry. HEAD: Atraumatic. Normocephalic. EYES: Pupils equal and round. No scleral icterus. No injection or drainage. ENT: No nasal bleeding or discharge. Mucous membranes pink and moist. NECK: Tracheostomy in place CARDIOVASCULAR: Regular rate and rhythm. RESPIRATORY: No accessory muscle use. Clear to auscultation. Breath sounds equal bilaterally. GASTROINTESTINAL: Abdomen soft, non-tender, nondistended. Hepatic and splenic margins not palpable. MUSCULOSKELETAL: Extremities without clubbing, cyanosis, or edema. No obvious deformities. NEUROLOGICAL: Awake and alert. No obvious cranial nerve deficits. Motor grossly within normal limits. Five out of 5 muscle strength in the arms and legs. Normal speech. PSYCHIATRIC: Appropriate mood and affect; insight and judgment normal. Assessment and Plan Assessment and Plan ass respiratory failure IC bleed PLAN o2 as needed pulm. toilet REMOVE TRACHEOSTOMY WHEN POSSIBLE Reed Mcbride MD Oct 05, 2016 16:32
[2016-10-05] MEDS: HALOPERIDOL LACTATE 5 MG/ML AMP IV PUSH PRN (18:39)
[2016-10-06] VITALS (9 sets, daily range): BP systolic 108–132; BP diastolic 75–97; PULSE 89–116; RESP 12–23; TEMP 98.6–99.9; O2SAT 92–98
[2016-10-06] MEDS: CHLORHEXIDINE GLUCONATE 2 % 1 PACK (2 CLOTHS) TOP SCH (04:00)
[2016-10-06] MEDS: OLANZapine ODT 10 MG TAB PO SCH ×3 (04:56→19:22)
[2016-10-06] MEDS: guaiFENesin SOLUTION 200 MG/10 ML CUP PEG SCH ×6 (04:56→20:33)
[2016-10-06] MEDS: PROPRANOLOL HCL 20 MG TAB PO SCH ×3 (04:56→20:33)
[2016-10-06] MEDS: oxyCODONE HCL ORAL CONC 20 MG/ML SYRINGE PO SCH ×7 (04:56→23:37)
[2016-10-06] MEDS: DILTIAZEM HCL 30 MG TAB PO SCH ×4 (04:56→23:37)
[2016-10-06 05:11] LABS: AUTOMATED NEUTROPHIL # 4.9 TH/MM3 (1.8-7.7); BASOPHIL # 0.1 TH/MM3 (0-0.2); BASOPHIL % 1.3 % (0.0-2.0); EOSINOPHIL # 0.5 TH/MM3 (0-0.4); EOSINOPHIL % 4.9 % (0.0-4.0); HEMATOCRIT 36.6 % (39.0-51.0); HEMO FLAGS DIFF FINAL; LYMPH % 29.6 % (9.0-44.0); LYMPHOCYTE # 2.9 TH/MM3 (1.0-4.8); MEAN CELL VOLUME 81.8 FL (80.0-100.0); MEAN CORPUSCULAR HEMOGLOBIN 27.3 PG (27.0-34.0); MEAN CORPUSCULAR HGB CONC 33.4 % (32.0-36.0); NEUT % 50.2 % (16.0-70.0); PLATELET COUNT 319 TH/MM3 (150-450); RED BLOOD COUNT 4.48 MIL/MM3 (4.50-5.90); RED CELL DISTRIBUTION WIDTH 14.8 % (11.6-17.2); WHITE BLOOD COUNT 9.8 TH/MM3 (4.0-11.0)
[2016-10-06 05:21] LABS: ANION GAP 9 MEQ/L (5-15); AST (GOT) 57 U/L (15-37); BICARBONATE 28.5 MEQ/L (21.0-32.0); BLOOD UREA NITROGEN 10 MG/DL (7-18); CHLORIDE 103 MEQ/L (98-107); GLOMERULAR FILTRATION RATE 100 ML/MIN (>89); MAGNESIUM 1.7 MG/DL (1.5-2.5); POTASSIUM 3.7 MEQ/L (3.5-5.1); SODIUM (NA) 140 MEQ/L (136-145)
[2016-10-06 05:25] LABS: ALKALINE PHOSPHATASE 233 U/L (45-117); ALT (GPT) 100 U/L (12-78); TOTAL BILIRUBIN ADULT 0.6 MG/DL (0.2-1.0)
[2016-10-06] MEDS: PANTOPRAZOLE SODIUM 40 MG VIAL IV SCH (07:15)
[2016-10-06] MEDS: CHLORHEXIDINE 0.12% (ORAL KIT) 15 ML CUP MT SCH ×2 (07:16→19:23)
[2016-10-06] MEDS: METOCLOPRAMIDE HCL SYRUP 10 MG/10 ML UDC PO SCH ×4 (07:16→20:33)
[2016-10-06] MEDS: DOCUSATE SODIUM 50 MG/SENNA 8.6 MG TAB PO SCH ×2 (07:17→20:33)
[2016-10-06] MEDS: amLODIPine BESYLATE 5 MG TAB PO SCH (07:17)
[2016-10-06] MEDS: SODIUM CHLORIDE 0.9% FLUSH 10 ML FLUSH SCH ×2 (07:18→19:23)
[2016-10-06] MEDS: SODIUM CHLORIDE 0.9% FLUSH 10 ML FLUSH IV FLUSH SCH (07:19)
[2016-10-06] MEDS: BISACODYL 10 MG SUPP RECTAL SCH (09:00)
--- NOTE | 2016-10-06 09:31 | HHI.PR ---
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 had Emergent CT angiography with status post decompressive Craniectomy 09/02/16, since procedure has been vomiting, status post Tracheostomy placement, Status post PEG tube placement 09/16/16, has increased liver enzyme, new study showed no evidence of acute cholecystitis. 09/29: Strong movements on the Right hemibody at this time with his uncle he looks to understand when he talks with him and show some pictures, continue slowly improving. tracheostomy management as per end user support specialist. 10/03: Stable in his bedroom, seen in the presence of nurse Miss Kapoor and his and another relative, the patient is alert and oriented difficult for hi to get communication, he was tried to cap his tracheostomy, already reduced his tracheostomy tube to #6, continue present care continue supportive care, trying to remove Tracheostomy as soon as possible once out he may be moved to Rehabilitation area. 10/04: Seen in his bedroom, and discussed with nurse Miss Kapoor, the patient vomited yesterday after he was repositioned by some family members, discussed with nurse and has to be ruled out Aspiration, new CXR no acute infiltrates. continue present care. 10/05: Patient continue with medical management, continue to try to cap his Tracheostomy tube, discussed with nurse Miss Lomas about IV fluids were discontinued, asked for Mucolytic discussed with pharmacy and given in liquid form through PEG tube, has Constipation given Lactulose, probable will need low dose of Seroquel. later during the day the patient lost his Tracheostomy tube and was replaced without difficulty by RT team. no new issues.seen in the presence of his Uncle. 10/06: Seen in his bedroom in the presence of his and nurse present, no new issues, continue present care awaiting for Tracheostomy to be removed to transfer to Rehab facility, the patient removed his Tracheostomy tube yesterday night three times only when he coughs. at this time at room air continue with Tracheostomy to handle his secretions. Objective Vital Signs Date Time Temp Pulse Resp B/P Pulse Ox O2 Delivery O2 Flow Rate FiO2 10/06/16 08:42 95 Trach Collar 6.00 21 6/27/17 08:26 95 Trach Collar 6.00 21 10/06/16 08:00 98.8 89 13 108/81 96 10/06/16 08:00 89 10/06/16 07:00 94 T-Piece 21 10/06/16 05:56 12 10/06/16 04:00 106 10/06/16 04:00 98.7 106 12 115/82 95 10/06/16 00:00 99.9 103 12 113/75 98 10/06/16 00:00 103 10/05/16 23:12 93 Trach Collar 21 10/05/16 20:00 98.2 120 22 136/92 93 10/05/16 20:00 120 10/05/16 19:00 93 T-Piece 28 10/05/16 16:00 109 10/05/16 16:00 99.1 109 26 124/101 97 10/05/16 12:00 111 10/05/16 12:00 96 T-piece 6.00 21 10/05/16 12:00 98.9 111 18 132/86 93 I/O 10/05/16 10/05/16 10/05/16 10/06/16 10/06/16 10/06/16 06:59 14:59 22:59 06:59 14:59 22:59 Intake Total 884 ml 1093 ml 120 ml 160 ml Output Total 700 ml 950 ml 850 ml 230 ml Balance 184 ml 143 ml -730 ml -70 ml IV Total 539 ml 580 ml Tube Feeding 285 ml 393 ml 40 ml Tube Irrigant 60 ml 120 ml Other 120 ml 120 ml Output Urine Total 700 ml 950 ml 850 ml 230 ml # Bowel Movements 0 0 2 1 Result Diagram: 10/06/16 0430 10/06/16 0430 Imaging Last Impressions Chest X-Ray 10/04/16 0000 Signed Impressions: Service Date/Time: Tuesday, October 04, 2016 10:26 - CONCLUSION: No acute pulmonary infiltrates. Reuben Fowler MD Abdomen/Pelvis CT 10/03/16 0000 Signed Impressions: Service Date/Time: Monday, October 03, 2016 17:01 - CONCLUSION: 1. No definite acute abnormality is seen. 2. G-tube in good position. 3. 2 linear metallic densities seen at the distal descending colon and the rectum likely related to anchors from the G-tube. Al Nixon MD Hepatobiliary Scan Nuclear Medicine 09/20/16 0000 Signed Impressions: Service Date/Time: Tuesday, September 20, 2016 09:28 - CONCLUSION: Delayed filling of what appears to be a contracted gallbladder suggesting the possibility of gallbladder dysfunction but no acute cholecystitis or cystic/common bile duct obstruction. Al Wong MD Liver Ultrasound 09/18/16 0000 Signed Impressions: Service Date/Time: Sunday, September 18, 2016 08:42 - CONCLUSION: Minimal sludge in the gallbladder with gallbladder wall thickening. The patient does not appear to be tender over the gallbladder. Champ Pascal MD FACR Gastrostomy Tube Placement 09/16/16 0000 Signed Impressions: Service Date/Time: Friday, September 16, 2016 11:10 - CONCLUSION: Uncomplicated gastrostomy tube placement as above. Shady Shelby MD Abdomen X-Ray 09/10/16 0000 Signed Impressions: Service Date/Time: September 06:34 - CONCLUSION: Feeding tube tip in the stomach Al Hernandez MD Head CT 09/07/16 0600 Signed Impressions: Service Date/Time: Wednesday, September 07, 2016 06:05 - CONCLUSION: Stable brain appearance. Al Hernandez MD Neck CTA 09/01/162019 Signed Impressions: Service Date/Time: Thursday, September 01, 2016 20:55 - CONCLUSION: Unremarkable exam. The carotid arteries are intact. Ag Saxena MD Head CTA 09/01/162019 Signed Impressions: Service Date/Time: Thursday, September 01, 2016 20:55 - CONCLUSION: The etiology of the patient's right cerebellar h hemorrhage is not identified and there appears to be some infiltrates and possible pleural effusions in the upper lungs that are visualized. Erika Bob MD Procedures Endotracheal Intubation Decompressive Craniectomy 09/02/16 PEG tube placement 09/16/16 Other Results Laboratory Tests Test 10/06/16 04:30 White Blood Count 9.8 TH/MM3 Red Blood Count 4.48 MIL/MM3 Hemoglobin 12.2 GM/DL Hematocrit 36.6 % Mean Corpuscular Volume 81.8 FL Mean Corpuscular Hemoglobin 27.3 PG Mean Corpuscular Hemoglobin 33.4 % Concent Red Cell Distribution Width 14.8 % Platelet Count 319 TH/MM3 Mean Platelet Volume 8.8 FL Neutrophils (%) (Auto) 50.2 % Lymphocytes (%) (Auto) 29.6 % Monocytes (%) (Auto) 14.0 % Eosinophils (%) (Auto) 4.9 % Basophils (%) (Auto) 1.3 % Neutrophils # (Auto) 4.9 TH/MM3 Lymphocytes # (Auto) 2.9 TH/MM3 Monocytes # (Auto) 1.4 TH/MM3 Eosinophils # (Auto) 0.5 TH/MM3 Basophils # (Auto) 0.1 TH/MM3 CBC Comment DIFF FINAL Differential Comment Sodium Level 140 MEQ/L Potassium Level 3.7 MEQ/L Chloride Level 103 MEQ/L Carbon Dioxide Level 28.5 MEQ/L Anion Gap 9 MEQ/L Blood Urea Nitrogen 10 MG/DL Creatinine 1.01 MG/DL Estimat Glomerular Filtration 100 ML/MIN Rate Random Glucose 87 MG/DL Calcium Level 9.8 MG/DL Magnesium Level 1.7 MG/DL Total Bilirubin 0.6 MG/DL Aspartate Amino Transf 57 U/L (AST/SGOT) Alanine Aminotransferase 100 U/L (ALT/SGPT) Alkaline Phosphatase 233 U/L Total Protein 8.4 GM/DL Albumin 2.7 GM/DL Objective Remarks GENERAL: No acute distress. SKIN: Warm and dry. HEAD: Normocephalic. EYES: No scleral icterus. No injection or drainage. NECK: Supple, trachea midline. No JVD or lymphadenopathy. Midline Tracheostomy. CARDIOVASCULAR: Regular rate and rhythm without murmurs, gallops, or rubs. RESPIRATORY: Breath sounds equal bilaterally. No accessory muscle use. GASTROINTESTINAL: Abdomen soft, non-tender, nondistended. PEG in place. MUSCULOSKELETAL: No cyanosis, or edema. BACK: Nontender without obvious deformity. No CVA tenderness. Medications and IVs Current Medications Medications (Trade) Dose Ordered Sig/Demetris Route Start Time Stop Time Status Last Admin (NS Flush) 2 ml UNSCH PRN .XX 09/01/16 21:00 (NS Flush) 2 ml BID .XX 09/01/16 21:00 10/06/16 07:18 (Protonix Inj) 40 mg DAILY IV 09/02/16 09:00 10/06/16 07:15 Miscellaneous Information 1 Q361D XX 09/01/16 21:00 (Chlorhexidine 2% Cloth) Taper DAILY@04 TOP 09/02/16 04:00 08/29/17 03:59 09/28/16 04:00 Chlorhexidine Gluconate 3 pack 3 pack UNSCH PRN TOP 09/01/16 21:00 Potassium Chloride 100 ml @ 50 mls/hr Q2H PRN IV 09/01/16 21:15 09/02/16 04:54 (KCl 20 Meq Premix Inj) 100 ml @ 50 mls/hr Q2H PRN IV 09/01/16 21:15 Potassium Bicarb/ Potassium Chloride 50 meq 50 meq UNSCH PRN PO 09/01/16 21:15 Potassium Chloride 100 ml @ 25 mls/hr UNSCH PRN IV 09/01/16 21:15 09/23/16 12:30 Potassium Chloride 100 ml @ 50 mls/hr Q2H PRN IV 09/01/16 21:15 (Magnesium Sulfate Inj/NS Inj) 100 ml @ 50 mls/hr UNSCH PRN IV 09/01/16 21:15 Magnesium Oxide 800 mg 800 mg UNSCH PRN PO 09/01/16 21:15 (Magnesium Sulfate Inj/NS Inj) 100 ml @ 50 mls/hr UNSCH PRN IV 09/01/16 21:15 09/02/16 08:18 Potassium Phosphate 2000 mg 2,000 mg Q4H PRN PO 09/01/16 21:15 (Sodium Phosphate Inj/NS 250 ml Inj) 250 ml @ 42 mls/hr UNSCH PRN IV 09/01/16 21:15 09/02/16 08:18 (K-Phos) 2,000 mg UNSCH PRN PO/TUBE 09/01/16 21:15 (D50w (Vial) Inj) 50 ml UNSCH PRN IV 09/01/16 21:15 (Glucagon Inj) 1 mg UNSCH PRN OTHER 09/01/16 21:15 (Peridex 0.12% Liq) 15 ml BID@08,20 MT 09/02/16 08:00 10/06/16 07:16 (Trandate Inj) 10 mg Q4H PRN IV PUSH 09/02/16 00:45 09/19/16 12:25 (Ofirmev Inj) 1,000 mg Q6H PRN IV 09/02/16 01:00 09/24/16 00:22 (Zofran Inj) 4 mg Q6HR PRN IV PUSH 09/02/16 01:00 10/05/16 14:49 (Reglan Liq) 10 mg ACHS PO 09/03/16 11:00 10/06/16 07:16 (Dulcolax Supp) 10 mg DAILY RECTAL 09/04/16 09:00 10/05/16 09:16 (Tania-Colace) 1 tab BID PO 09/03/16 09:45 10/06/16 07:17 (Lopressor Inj) 5 mg Q4H PRN IV PUSH 09/06/16 10:15 09/24/16 15:35 (NS Flush) See Protocol DAILY IV FLUSH 09/11/16 09:00 10/06/16 07:19 (NS Flush) See Protocol UNSCH PRN IV FLUSH 09/10/16 14:45 10/01/16 09:42 (Heparin Central Flush) See Protocol DAILY IV FLUSH 09/11/16 09:00 10/06/16 07:18 (Heparin Central Flush) See Protocol UNSCH PRN IV FLUSH 09/10/16 14:45 09/14/16 05:40 (NS Flush) UNSCH PRN IV FLUSH 09/10/16 14:45 (Thorazine Inj) 25 mg Q4H PRN IM 09/12/16 09:30 09/13/16 19:50 (Lopressor) 50 mg Q12HR PO 09/13/16 09:15 Hold 09/14/16 20:56 (Norvasc) 5 mg DAILY PO 09/13/16 09:15 10/06/16 07:17 (Haldol Inj) 5 mg Q4H PRN IV PUSH 09/14/16 10:45 10/05/16 18:39 (ZyPREXA ZYDIS ODT) 10 mg Q8H PO 09/14/16 12:00 10/06/16 04:56 (Dilaudid Pf Inj) 0.5 mg Q4H PRN IV PUSH 09/14/16 10:45 10/05/16 00:06 (Roxicodone Intensol Liq) 10 mg Q4H PO 09/14/16 11:00 10/06/16 07:16 (Inderal) 20 mg Q8HR PO 09/15/16 06:23 10/06/16 04:56 (Transderm-Scop 1.5 Mg Patch.72 Hr) 1 patch Q3D T-DERMAL 09/19/16 12:00 10/04/16 11:31 Miscellaneous Information 1 Q3D T-DERMAL 09/22/16 12:00 10/04/16 11:31 (Lovenox Inj) 40 mg Q24H SQ 09/21/16 14:00 10/05/16 14:10 (Levsin Liq) 0.125 mg Q4H PRN PO 09/25/16 12:30 10/04/16 12:51 (Cardizem) 30 mg Q6HR PO 09/25/16 18:00 10/06/16 04:56 (Robitussin Liq) 200 mg Q4H PEG 10/05/16 14:00 10/06/16 07:15 A/P Assessment and Plan 40 year old male admitted with a right cerebellar ICH. Status post craniectomy 09/01. Continue suction as needed. Levsin has had benefit. Continue occupational therapy, speech therapy, and physical therapy. Patient has had some movement in the left leg and arm, per family. No respiratory distress today. Status Post Acute right cerebellar hemorrhage L hemiparesis Status post suboccipital craniectomy with cerebellar hemorrhage evacuation and ventriculostomy on 09/01/16 Zyprexa continued Oxycodone continued Follow for fevers or hypothermia PT, OT, ST strong on the right hemibody, he has some movements on the left arm and Leg. Acute hypoxic and hypercarbic respiratory failure Aspiration Scheduled DuoNeb PRN Albuterol Enterobacter, Klebsiella in sputum, now Enterobacter is resistant to Rocephin. cefepime 2gm iv q8h started 09/15/16 completed for seven days, also had Tobramycin nebulized, for resistant Enterobacter Pulmonary Toilet and tracheostomy care Trach management per pulmonology, Cap trial performed yesterday night had cough and his tracheostomy tube was out on three opportunities. continue tracheostomy due to secretions management. Malignant Hypertension controlled Sinus tachycardia Continue Labetalol and hydralazine prn SBP <150. Continue Lopressor 5mg iv q4h prn for HR > 90. Continue Propranolol 20mg po q8h for tachycardia and agitation. Continue Norvasc 5 daily Elevated liver enzymes Improving through time Follow LFTs DVT Prophylaxis Lovenox, SCDs GI Prophylaxis Protonix Lines: PICC line No changes made to anterior assessment. Discussed with patient, his and nurse Miss Lomas, all questions answered to the best of my abilities. Discharge Planning Will need prolonged Rehabilitation but first will need to be cleared by end user support specialist. Martínez Bauer MD Oct 06, 2016 09:31
[2016-10-06] MEDS: ENOXAPARIN SODIUM 40 MG/0.4 ML SYRINGE SQ SCH (13:48)
--- NOTE | 2016-10-06 18:36 | HHI.PR ---
Subjective Remarks ASS NO DISTRESS TRACH OK FENESTRATED TRACH PLACED removed his trach this am replaced without any problems Objective Vital Signs Date Time Temp Pulse Resp B/P Pulse Ox O2 Delivery O2 Flow Rate FiO2 10/06/16 16:00 99.0 104 16 117/78 94 10/06/16 12:00 116 10/06/16 12:00 98.6 116 23 132/97 92 10/06/16 08:42 95 Trach Collar 6.00 21 10/06/16 08:26 95 Trach Collar 6.00 21 10/06/16 08:00 98.8 89 13 108/81 96 10/06/16 08:00 89 10/06/16 07:00 94 T-Piece 21 10/06/16 05:56 12 10/06/16 04:00 106 10/06/16 04:00 98.7 106 12 115/82 95 10/06/16 00:00 99.9 103 12 113/75 98 10/06/16 00:00 103 10/05/16 23:12 93 Trach Collar 21 10/05/16 20:00 98.2 120 22 136/92 93 10/05/16 20:00 120 10/05/16 19:00 93 T-Piece 28 I/O 10/05/16 10/05/16 10/05/16 10/06/16 10/06/16 10/06/16 07:00 15:00 23:00 07:00 15:00 23:00 Intake Total 884 ml 1093 ml 120 ml 160 ml 170 ml Output Total 700 ml 950 ml 850 ml 230 ml 575 ml Balance 184 ml 143 ml -730 ml -70 ml -405 ml IV Total 539 ml 580 ml Tube Feeding 285 ml 393 ml 40 ml 110 ml Tube Irrigant 60 ml 120 ml Other 120 ml 120 ml 60 ml Output Urine Total 700 ml 950 ml 850 ml 230 ml 575 ml # Bowel Movements 0 0 2 1 0 Result Diagram: 10/06/1642910/06/16 043 Procedures Endotracheal Intubation Decompressive Craniectomy 09/02/16 PEG tube placement 09/16/16 Objective Remarks GENERAL: SKIN: Warm and dry. HEAD: Atraumatic. Normocephalic. EYES: Pupils equal and round. No scleral icterus. No injection or drainage. ENT: No nasal bleeding or discharge. Mucous membranes pink and moist. NECK: Tracheostomy in place CARDIOVASCULAR: Regular rate and rhythm. RESPIRATORY: No accessory muscle use. Clear to auscultation. Breath sounds equal bilaterally. GASTROINTESTINAL: Abdomen soft, non-tender, nondistended. Hepatic and splenic margins not palpable. MUSCULOSKELETAL: Extremities without clubbing, cyanosis, or edema. No obvious deformities. NEUROLOGICAL: Awake and alert. No obvious cranial nerve deficits. Motor grossly within normal limits. Five out of 5 muscle strength in the arms and legs. Normal speech. PSYCHIATRIC: Appropriate mood and affect; insight and judgment normal. Assessment and Plan Assessment and Plan ass respiratory failure IC bleed PLAN o2 as needed pulm. toilet REMOVE TRACHEOSTOMY WHEN POSSIBLE Reed Mcbride MD Oct 06, 2016 18:36
[2016-10-06] MEDS: HYDROmorphone HCL PF 1 MG/ML VIAL IV PUSH PRN (19:22)
[2016-10-06] MEDS: HYOSCYAMINE SOLN 0.125 MG/ML 15 ML BTL PO PRN (20:33)
[2016-10-07] VITALS (8 sets, daily range): BP systolic 106–132; BP diastolic 65–88; PULSE 95–116; RESP 10–21; TEMP 98.8–99.4; O2SAT 94–99
[2016-10-07] MEDS: guaiFENesin SOLUTION 200 MG/10 ML CUP PEG SCH ×6 (01:58→21:07)
[2016-10-07] MEDS: CHLORHEXIDINE GLUCONATE 2 % 1 PACK (2 CLOTHS) TOP SCH (04:00)
[2016-10-07] MEDS: DILTIAZEM HCL 30 MG TAB PO SCH ×4 (05:13→23:52)
[2016-10-07] MEDS: OLANZapine ODT 10 MG TAB PO SCH ×3 (05:13→20:12)
[2016-10-07] MEDS: PROPRANOLOL HCL 20 MG TAB PO SCH ×3 (05:13→21:07)
[2016-10-07] MEDS: oxyCODONE HCL ORAL CONC 20 MG/ML SYRINGE PO SCH ×6 (05:14→22:50)
[2016-10-07] MEDS: METOCLOPRAMIDE HCL SYRUP 10 MG/10 ML UDC PO SCH ×4 (05:14→20:12)
[2016-10-07] MEDS: CHLORHEXIDINE 0.12% (ORAL KIT) 15 ML CUP MT SCH ×2 (08:19→20:11)
[2016-10-07] MEDS: BISACODYL 10 MG SUPP RECTAL SCH (08:49)
[2016-10-07] MEDS: DOCUSATE SODIUM 50 MG/SENNA 8.6 MG TAB PO SCH ×2 (08:49→20:12)
[2016-10-07] MEDS: SODIUM CHLORIDE 0.9% FLUSH 10 ML FLUSH SCH ×2 (08:50→20:12)
[2016-10-07] MEDS: SODIUM CHLORIDE 0.9% FLUSH 10 ML FLUSH IV FLUSH SCH (08:50)
[2016-10-07] MEDS: PANTOPRAZOLE SODIUM 40 MG VIAL IV SCH (08:50)
[2016-10-07] MEDS: amLODIPine BESYLATE 5 MG TAB PO SCH (09:01)
--- NOTE | 2016-10-07 09:55 | HHI.PR ---
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 had Emergent CT angiography with status post decompressive Craniectomy 09/02/16, since procedure has been vomiting, status post Tracheostomy placement, Status post PEG tube placement 09/16/16, has increased liver enzyme, new study showed no evidence of acute cholecystitis. 09/29: Strong movements on the Right hemibody at this time with his uncle he looks to understand when he talks with him and show some pictures, continue slowly improving. tracheostomy management as per oil program compliance specialist. 10/03: Stable in his bedroom, seen in the presence of nurse Miss Kapoor and his and another relative, the patient is alert and oriented difficult for hi to get communication, he was tried to cap his tracheostomy, already reduced his tracheostomy tube to #6, continue present care continue supportive care, trying to remove Tracheostomy as soon as possible once out he may be moved to Rehabilitation area. 10/04: Seen in his bedroom, and discussed with nurse Miss Kapoor, the patient vomited yesterday after he was repositioned by some family members, discussed with nurse and has to be ruled out Aspiration, new CXR no acute infiltrates. continue present care. 10/05: Patient continue with medical management, continue to try to cap his Tracheostomy tube, discussed with nurse Miss Lomas about IV fluids were discontinued, asked for Mucolytic discussed with pharmacy and given in liquid form through PEG tube, has Constipation given Lactulose, probable will need low dose of Seroquel. later during the day the patient lost his Tracheostomy tube and was replaced without difficulty by RT team. no new issues.seen in the presence of his Uncle. 10/06: Seen in his bedroom in the presence of his and nurse present, no new issues, continue present care awaiting for Tracheostomy to be removed to transfer to Rehab facility, the patient removed his Tracheostomy tube yesterday night three times only when he coughs. at this time at room air continue with Tracheostomy to handle his secretions. 10/07: Stable in his bedroom seen in the presence of his and nurse Miss Judd, continue with Diplopia and patching intermittently his Eyes, also the need today for a Kumar cath he has Urinary Retention, no nausea, vomit or diarrhea. Objective Vital Signs Date Time Temp Pulse Resp B/P Pulse Ox O2 Delivery O2 Flow Rate FiO2 10/07/16 08:07 95 T-piece 21 10/07/16 08:00 98.8 100 10 109/78 98 10/07/16 08:00 96 10/07/16 07:00 97 T-Piece 10/07/16 04:00 99.4 104 18 124/65 96 10/07/16 04:00 106 10/07/16 00:00 99.2 109 16 132/88 94 10/07/16 00:00 95 10/06/16 20:12 95 T-piece 10/06/16 20:00 99.2 109 16 132/88 94 10/06/16 20:00 111 10/06/16 19:00 95 T-Piece 10/06/16 16:00 99.0 104 16 117/78 94 10/06/16 12:00 116 10/06/16 12:00 98.6 116 23 132/97 92 I/O 10/06/16 10/06/16 10/06/16 10/07/16 10/07/16 10/07/16 07:00 15:00 23:00 07:00 15:00 23:00 Intake Total 160 ml 170 ml 273 ml 470 ml Output Total 230 ml 575 ml Balance -70 ml -405 ml 273 ml 470 ml Tube Feeding 40 ml 110 ml 213 ml 350 ml Other 120 ml 60 ml 60 ml 120 ml Output Urine Total 230 ml 575 ml # Voids 1 # Bowel Movements 1 0 Result Diagram: 10/06/16 0430 10/06/16 0430 Imaging Last Impressions Chest X-Ray 10/04/16 0000 Signed Impressions: Service Date/Time: Tuesday, October 04, 2016 10:26 - CONCLUSION: No acute pulmonary infiltrates. Reuben Fowler MD Abdomen/Pelvis CT 10/03/16 0000 Signed Impressions: Service Date/Time: Monday, October 03, 2016 17:01 - CONCLUSION: 1. No definite acute abnormality is seen. 2. G-tube in good position. 3. 2 linear metallic densities seen at the distal descending colon and the rectum likely related to anchors from the G-tube. Al Nixon MD Hepatobiliary Scan Nuclear Medicine 09/20/16 0000 Signed Impressions: Service Date/Time: Tuesday, September 20, 2016 09:28 - CONCLUSION: Delayed filling of what appears to be a contracted gallbladder suggesting the possibility of gallbladder dysfunction but no acute cholecystitis or cystic/common bile duct obstruction. Al Wong MD Liver Ultrasound 09/18/16 0000 Signed Impressions: Service Date/Time: Sunday, September 18, 2016 08:42 - CONCLUSION: Minimal sludge in the gallbladder with gallbladder wall thickening. The patient does not appear to be tender over the gallbladder. Champ Pascal MD FACR Gastrostomy Tube Placement 09/16/16 0000 Signed Impressions: Service Date/Time: Friday, September 16, 2016 11:10 - CONCLUSION: Uncomplicated gastrostomy tube placement as above. Shady Shelby MD Abdomen X-Ray 09/10/16 0000 Signed Impressions: Service Date/Time: September 06:34 - CONCLUSION: Feeding tube tip in the stomach Al Hernandez MD Head CT 09/07/16 0600 Signed Impressions: Service Date/Time: Wednesday, September 07, 2016 06:05 - CONCLUSION: Stable brain appearance. Al Hernandez MD Neck CTA 09/01/162019 Signed Impressions: Service Date/Time: Thursday, September 01, 2016 20:55 - CONCLUSION: Unremarkable exam. The carotid arteries are intact. Ag Saxena MD Head CTA 09/01/162019 Signed Impressions: Service Date/Time: Thursday, September 01, 2016 20:55 - CONCLUSION: The etiology of the patient's right cerebellar h hemorrhage is not identified and there appears to be some infiltrates and possible pleural effusions in the upper lungs that are visualized. Erika Bob MD Procedures Endotracheal Intubation Decompressive Craniectomy 09/02/16 PEG tube placement 09/16/16 Other Results Laboratory Tests Test 10/06/16 04:30 White Blood Count 9.8 TH/MM3 Red Blood Count 4.48 MIL/MM3 Hemoglobin 12.2 GM/DL Hematocrit 36.6 % Mean Corpuscular Volume 81.8 FL Mean Corpuscular Hemoglobin 27.3 PG Mean Corpuscular Hemoglobin 33.4 % Concent Red Cell Distribution Width 14.8 % Platelet Count 319 TH/MM3 Mean Platelet Volume 8.8 FL Neutrophils (%) (Auto) 50.2 % Lymphocytes (%) (Auto) 29.6 % Monocytes (%) (Auto) 14.0 % Eosinophils (%) (Auto) 4.9 % Basophils (%) (Auto) 1.3 % Neutrophils # (Auto) 4.9 TH/MM3 Lymphocytes # (Auto) 2.9 TH/MM3 Monocytes # (Auto) 1.4 TH/MM3 Eosinophils # (Auto) 0.5 TH/MM3 Basophils # (Auto) 0.1 TH/MM3 CBC Comment DIFF FINAL Differential Comment Sodium Level 140 MEQ/L Potassium Level 3.7 MEQ/L Chloride Level 103 MEQ/L Carbon Dioxide Level 28.5 MEQ/L Anion Gap 9 MEQ/L Blood Urea Nitrogen 10 MG/DL Creatinine 1.01 MG/DL Estimat Glomerular Filtration 100 ML/MIN Rate Random Glucose 87 MG/DL Calcium Level 9.8 MG/DL Magnesium Level 1.7 MG/DL Total Bilirubin 0.6 MG/DL Aspartate Amino Transf 57 U/L (AST/SGOT) Alanine Aminotransferase 100 U/L (ALT/SGPT) Alkaline Phosphatase 233 U/L Total Protein 8.4 GM/DL Albumin 2.7 GM/DL Objective Remarks GENERAL: No acute distress. SKIN: Warm and dry. HEAD: Normocephalic. EYES: No scleral icterus. No injection or drainage. NECK: Supple, trachea midline. No JVD or lymphadenopathy. Midline Tracheostomy. CARDIOVASCULAR: Regular rate and rhythm without murmurs, gallops, or rubs. RESPIRATORY: Breath sounds equal bilaterally. No accessory muscle use. GASTROINTESTINAL: Abdomen soft, non-tender, nondistended. PEG in place. MUSCULOSKELETAL: No cyanosis, or edema. BACK: Nontender without obvious deformity. No CVA tenderness. Medications and IVs Current Medications Medications (Trade) Dose Ordered Sig/Demetris Route Start Time Stop Time Status Last Admin (NS Flush) 2 ml UNSCH PRN .XX 09/01/16 21:00 (NS Flush) 2 ml BID .XX 09/01/16 21:00 10/07/16 08:50 (Protonix Inj) 40 mg DAILY IV 09/02/16 09:00 10/07/16 08:50 Miscellaneous Information 1 Q361D XX 09/01/16 21:00 (Chlorhexidine 2% Cloth) Taper DAILY@04 TOP 09/02/16 04:00 08/29/17 03:59 09/28/16 04:00 Chlorhexidine Gluconate 3 pack 3 pack UNSCH PRN TOP 09/01/16 21:00 Potassium Chloride 100 ml @ 50 mls/hr Q2H PRN IV 09/01/16 21:15 09/02/16 04:54 (KCl 20 Meq Premix Inj) 100 ml @ 50 mls/hr Q2H PRN IV 09/01/16 21:15 Potassium Bicarb/ Potassium Chloride 50 meq 50 meq UNSCH PRN PO 09/01/16 21:15 Potassium Chloride 100 ml @ 25 mls/hr UNSCH PRN IV 09/01/16 21:15 09/23/16 12:30 Potassium Chloride 100 ml @ 50 mls/hr Q2H PRN IV 09/01/16 21:15 (Magnesium Sulfate Inj/NS Inj) 100 ml @ 50 mls/hr UNSCH PRN IV 09/01/16 21:15 Magnesium Oxide 800 mg 800 mg UNSCH PRN PO 09/01/16 21:15 (Magnesium Sulfate Inj/NS Inj) 100 ml @ 50 mls/hr UNSCH PRN IV 09/01/16 21:15 09/02/16 08:18 Potassium Phosphate 2000 mg 2,000 mg Q4H PRN PO 09/01/16 21:15 (Sodium Phosphate Inj/NS 250 ml Inj) 250 ml @ 42 mls/hr UNSCH PRN IV 09/01/16 21:15 09/02/16 08:18 (K-Phos) 2,000 mg UNSCH PRN PO/TUBE 09/01/16 21:15 (D50w (Vial) Inj) 50 ml UNSCH PRN IV 09/01/16 21:15 (Glucagon Inj) 1 mg UNSCH PRN OTHER 09/01/16 21:15 (Peridex 0.12% Liq) 15 ml BID@08,20 MT 09/02/16 08:00 10/07/16 08:19 (Trandate Inj) 10 mg Q4H PRN IV PUSH 09/02/16 00:45 09/19/16 12:25 (Ofirmev Inj) 1,000 mg Q6H PRN IV 09/02/16 01:00 09/24/16 00:22 (Zofran Inj) 4 mg Q6HR PRN IV PUSH 09/02/16 01:00 10/05/16 14:49 (Reglan Liq) 10 mg ACHS PO 09/03/16 11:00 10/07/16 05:14 (Dulcolax Supp) 10 mg DAILY RECTAL 09/04/16 09:00 10/07/16 08:49 (Tania-Colace) 1 tab BID PO 09/03/16 09:45 10/07/16 08:49 (Lopressor Inj) 5 mg Q4H PRN IV PUSH 09/06/16 10:15 09/24/16 15:35 (NS Flush) See Protocol DAILY IV FLUSH 09/11/16 09:00 10/07/16 08:50 (NS Flush) See Protocol UNSCH PRN IV FLUSH 09/10/16 14:45 10/01/16 09:42 (Heparin Central Flush) See Protocol DAILY IV FLUSH 09/11/16 09:00 10/07/16 08:50 (Heparin Central Flush) See Protocol UNSCH PRN IV FLUSH 09/10/16 14:45 09/14/16 05:40 (NS Flush) UNSCH PRN IV FLUSH 09/10/16 14:45 (Thorazine Inj) 25 mg Q4H PRN IM 09/12/16 09:30 09/13/16 19:50 (Lopressor) 50 mg Q12HR PO 09/13/16 09:15 Hold 09/14/16 20:56 (Norvasc) 5 mg DAILY PO 09/13/16 09:15 10/07/16 09:01 (Haldol Inj) 5 mg Q4H PRN IV PUSH 09/14/16 10:45 10/05/16 18:39 (ZyPREXA ZYDIS ODT) 10 mg Q8H PO 09/14/16 12:00 10/07/16 05:13 (Dilaudid Pf Inj) 0.5 mg Q4H PRN IV PUSH 09/14/16 10:45 10/06/16 19:22 (Roxicodone Intensol Liq) 10 mg Q4H PO 09/14/16 11:00 10/07/16 05:14 (Inderal) 20 mg Q8HR PO 09/15/16 06:23 10/07/16 05:13 (Transderm-Scop 1.5 Mg Patch.72 Hr) 1 patch Q3D T-DERMAL 09/19/16 12:00 10/04/16 11:31 Miscellaneous Information 1 Q3D T-DERMAL 09/22/16 12:00 10/04/16 11:31 (Lovenox Inj) 40 mg Q24H SQ 09/21/16 14:00 10/06/16 13:48 (Levsin Liq) 0.125 mg Q4H PRN PO 09/25/16 12:30 10/06/16 20:33 (Cardizem) 30 mg Q6HR PO 09/25/16 18:00 10/07/16 05:13 (Robitussin Liq) 200 mg Q4H PEG 10/05/16 14:00 10/07/16 05:14 A/P Assessment and Plan 40 year old male admitted with a right cerebellar ICH. Status post craniectomy 09/01. Continue suction as needed. Levsin has had benefit. Continue occupational therapy, speech therapy, and physical therapy. Patient has had some movement in the left leg and arm, per family. No respiratory distress today. Status Post Acute right cerebellar hemorrhage L hemiparesis Status post suboccipital craniectomy with cerebellar hemorrhage evacuation and ventriculostomy on 09/01/16 Zyprexa continued Oxycodone continued Follow for fevers or hypothermia PT, OT, ST strong on the right hemibody, he has some movements on the left arm and Leg. Diplopia to continue intermittent Patch. Acute hypoxic and hypercarbic respiratory failure Aspiration Scheduled DuoNeb PRN Albuterol Enterobacter, Klebsiella in sputum, now Enterobacter is resistant to Rocephin. cefepime 2gm iv q8h started 09/15/16 completed for seven days, also had Tobramycin nebulized, for resistant Enterobacter Pulmonary Toilet and tracheostomy care Trach management per pulmonology, Cap trial performed yesterday night had cough and his tracheostomy tube was out on three opportunities. continue tracheostomy due to secretions management. continue Levsin Malignant Hypertension controlled Sinus tachycardia Continue Labetalol and hydralazine prn SBP <150. Continue Lopressor 5mg iv q4h prn for HR > 90. Continue Propranolol 20mg po q8h for tachycardia and agitation. Continue Norvasc 5 daily Elevated liver enzymes Improving through time Follow LFTs DVT Prophylaxis Lovenox, SCDs GI Prophylaxis Protonix Lines: PICC line No changes made to anterior assessment. Discussed with patient, his and nurse Miss Judd, all questions answered to the best of my abilities. Discharge Planning Will need prolonged Rehabilitation but first will need to be cleared by oil program compliance specialist. Martínez Bauer MD Oct 07, 2016 09:55
[2016-10-07] MEDS: REMOVE OLD SCOPOLAMINE PATCH T-DERMAL SCH (12:33)
[2016-10-07] MEDS: SCOPOLAMINE 1.5 MG PATCH T-DERMAL SCH (12:33)
[2016-10-07] MEDS: HYOSCYAMINE SOLN 0.125 MG/ML 15 ML BTL PO PRN (13:32)
[2016-10-07] MEDS: ENOXAPARIN SODIUM 40 MG/0.4 ML SYRINGE SQ SCH (13:32)
[2016-10-07] MEDS: HYDROmorphone HCL PF 1 MG/ML VIAL IV PUSH PRN (13:32)
--- NOTE | 2016-10-07 18:22 | HHI.PR ---
Subjective Remarks ASS NO DISTRESS TRACH OK FENESTRATED TRACH PLACED removed his trach this am replaced without any problems Objective Vital Signs Date Time Temp Pulse Resp B/P Pulse Ox O2 Delivery O2 Flow Rate FiO2 10/07/16 16:00 100 10/07/16 16:00 99.2 106 11 120/88 97 10/07/16 12:00 98.8 98 21 106/76 98 10/07/16 12:00 98 10/07/16 08:07 95 T-piece 21 10/07/16 08:00 98.8 100 10 109/78 98 10/07/16 08:00 96 10/07/16 07:00 97 T-Piece 21 10/07/16 04:00 99.4 104 18 124/65 96 10/07/16 04:00 106 10/07/16 00:00 99.2 109 16 132/88 94 10/07/16 00:00 95 10/06/16 20:12 95 T-piece 21 10/06/16 20:00 99.2 109 16 132/88 94 10/06/16 20:00 111 10/06/16 19:00 95 T-Piece 21 I/O 10/06/16 10/06/16 10/06/16 10/07/16 10/07/16 10/07/16 07:00 15:00 23:00 07:00 15:00 23:00 Intake Total 160 ml 170 ml 273 ml 470 ml 490 ml Output Total 230 ml 575 ml 500 ml Balance -70 ml -405 ml 273 ml 470 ml -10 ml Tube Feeding 40 ml 110 ml 213 ml 350 ml 390 ml Other 120 ml 60 ml 60 ml 120 ml 100 ml Output Urine Total 230 ml 575 ml 500 ml # Voids 1 1 # Bowel Movements 1 0 0 Result Diagram: 10/06/16 0430 10/06/16 0430 Procedures Endotracheal Intubation Decompressive Craniectomy 09/02/16 PEG tube placement 09/16/16 Objective Remarks GENERAL: SKIN: Warm and dry. HEAD: Atraumatic. Normocephalic. EYES: Pupils equal and round. No scleral icterus. No injection or drainage. ENT: No nasal bleeding or discharge. Mucous membranes pink and moist. NECK: Tracheostomy in place CARDIOVASCULAR: Regular rate and rhythm. RESPIRATORY: No accessory muscle use. Clear to auscultation. Breath sounds equal bilaterally. GASTROINTESTINAL: Abdomen soft, non-tender, nondistended. Hepatic and splenic margins not palpable. MUSCULOSKELETAL: Extremities without clubbing, cyanosis, or edema. No obvious deformities. NEUROLOGICAL: Awake and alert. No obvious cranial nerve deficits. Motor grossly within normal limits. Five out of 5 muscle strength in the arms and legs. Normal speech. PSYCHIATRIC: Appropriate mood and affect; insight and judgment normal. Assessment and Plan Assessment and Plan ass respiratory failure IC bleed PLAN o2 as needed pulm. toilet REMOVE TRACHEOSTOMY WHEN POSSIBLE Reed Mcbride MD Oct 07, 2016 18:22
[2016-10-08] VITALS (11 sets, daily range): BP systolic 113–123; BP diastolic 62–81; PULSE 102–124; RESP 14–22; TEMP 98.7–99.6; O2SAT 96–100
[2016-10-08] MEDS: guaiFENesin SOLUTION 200 MG/10 ML CUP PEG SCH ×6 (02:34→22:22)
[2016-10-08] MEDS: oxyCODONE HCL ORAL CONC 20 MG/ML SYRINGE PO SCH ×6 (02:35→22:23)
[2016-10-08] MEDS: CHLORHEXIDINE GLUCONATE 2 % 1 PACK (2 CLOTHS) TOP SCH (04:00)
[2016-10-08] MEDS: OLANZapine ODT 10 MG TAB PO SCH ×3 (04:07→20:40)
[2016-10-08] MEDS: DILTIAZEM HCL 30 MG TAB PO SCH ×4 (06:10→23:53)
[2016-10-08] MEDS: METOCLOPRAMIDE HCL SYRUP 10 MG/10 ML UDC PO SCH ×4 (06:10→20:40)
[2016-10-08] MEDS: PROPRANOLOL HCL 20 MG TAB PO SCH ×3 (06:10→22:22)
[2016-10-08] MEDS: PANTOPRAZOLE SODIUM 40 MG VIAL IV SCH (08:46)
[2016-10-08] MEDS: amLODIPine BESYLATE 5 MG TAB PO SCH (08:46)
[2016-10-08] MEDS: DOCUSATE SODIUM 50 MG/SENNA 8.6 MG TAB PO SCH ×2 (08:46→20:40)
[2016-10-08] MEDS: BISACODYL 10 MG SUPP RECTAL SCH (08:46)
[2016-10-08] MEDS: SODIUM CHLORIDE 0.9% FLUSH 10 ML FLUSH IV FLUSH SCH (09:00)
[2016-10-08] MEDS: SODIUM CHLORIDE 0.9% FLUSH 10 ML FLUSH SCH ×2 (09:00→20:40)
--- NOTE | 2016-10-08 14:25 | HHI.HCPN ---
Reason for visit a. To assist with evaluation and management of symptoms including: Shortness of breath and debility. b. To assist medical decision maker(s) with: better understanding of current medical conditions; weighing benefits/burdens of medical treatment options; making medical treatment decisions. . Subjective/Interval History Palliative care f/u for emotional support, enhance communication and for clarifications of goals of care. Mr. Isabel is a 40-year-old male with no significant past medical history who presented to the ED via EMS on 09/01/16 with large acute high density hemorrhage in the right cerebellar hemisphere with extension into the isaac, 5.3cm x 4.9cm in size. Patient status post decompressive craniectomy. Patient seen in ICU. Awake, alert, following commands. Communicating by mouthing words and using hand gestures. Following commands. Tracheostomy in place. Pulmonology Dr. Mcbride is following, tracheostomy was changed to a fenestrated cuffless on 09/28/16. Patient denies pain, nausea or abdominal discomfort. Patient endorsing double vision, has been wearing a patch to left eye intermittently. Currently working with Jaci, exercising legs and strengthening vision by reading. Patient remains afebrile, tachycardic with heart rate in the low 110s. T-collar in place, oxygen saturation in the high 90s. Most recent laboratory 10/06 16 revealing WBC 9.8, Hgb 12.2, platelet count 319. Sodium 140, potassium 3.7, BUN/creatinine 10/1.01. Most recent chest x-ray 10/04/16 revealing no acute process. Reviewed with patient and that he still has a long recovery ahead of him but that he has shown remarkable improvement, hopeful that patient can secure a abbe bed at acute rehabilitation/LTAC facility. tells me that his disability and Medicaid were denied, they are currently working with human services case manager for discharge planning. Patient's daughter remains in [place], she has been having difficulty with obtaining a passport and [place] visa. Palliative care has provided documentation indicating that patient is still in critical care in order to facilitate this process. Patient's son was able to visit twice. Patient smiling when talking about his children. Ongoing emotional support and active listening provided. appreciative of my visit in medical update today. . Family/friend interactions See interval note. . Advance Directives Living Will: Never completed Health Care Surrogate: Never completed Durable Power of Ruby Developer: Never completed Advance Directive Specifics Health Care Surrogate(s): No living will or healthcare surrogate designation completed. As per [place] law, patient's Jaci Isabel is healthcare proxy. . Documented care wishes: No living will completed. . Significant change in goals: Full code. Goals remain aggressive. . Objective Vital Signs Date Time Temp Pulse Resp B/P Pulse Ox O2 Delivery O2 Flow Rate FiO2 10/08/16 08:41 98.7 102 16 115/74 99 10/08/16 08:33 100 T-piece 21 10/08/16 04:41 96 Trach Collar 21 10/08/16 04:00 99.1 115 16 123/78 98 10/08/16 04:00 116 10/08/16 00:00 99.6 108 14 113/62 96 10/08/16 00:00 108 10/07/16 22:10 99 Trach Collar 5.00 21 10/07/16 20:00 99.4 116 19 127/85 96 10/07/16 20:00 116 10/07/16 19:00 96 T-Piece 21 10/07/16 16:00 100 10/07/16 16:00 99.2 106 11 120/88 97 Intake & Output 10/08/16 10/08/16 07:00 19:00 Intake Total 1125 ml Output Total 400 ml Balance 725 ml Tube Feeding 885 ml Other 240 ml Output Urine Total 400 ml # Voids 2 # Bowel Movements 0 Physical Exam CONSTITUTIONAL/GENERAL: This is an adequately nourished patient, in no apparent distress. Currently on T-collar. Alert and following commands. TUBES/LINES/DRAINS: PIV's, tracheostomy, NG tube, Kumar catheter, SCDs, PEG tube. SKIN: No jaundice, rashes, or lesions. No wounds seen anteriorly. Skin temperature appropriate. Not diaphoretic. HEAD: Atraumatic. Normocephalic. EYES: No scleral icterus. No injection or drainage. ENT: Normal hearing. Nose without bleeding or purulent drainage. Moist oral mucosa. CARDIOVASCULAR: Tachycardic with heart rate in the low 110s. Regular rhythm. Peripheral pulses symmetric. Warm extremities. RESPIRATORY/CHEST: Symmetric, unlabored respirations. Currently on T-collar. Clear breath sounds. GASTROINTESTINAL: Abdomen soft, round. Bowel sounds present. PEG tube in place. GENITOURINARY: Without palpable bladder distension. Kumar catheter in place. MUSCULOSKELETAL: Extremities without clubbing, cyanosis. No mottling or clubbing. NEUROLOGICAL: Awake, alert. Communicating by mouthing words and hand gestures. Following commands. Engaging in conversation. Left-sided hemiparesis. PSYCHIATRIC: Anxious/restlessness at times. . Diagnostic Tests Laboratory Laboratory Tests Test 10/06/16 04:30 White Blood Count 9.8 TH/MM3 (4.0-11.0) Red Blood Count 4.48 MIL/MM3 (4.50-5.90) Hemoglobin 12.2 GM/DL (13.0-17.0) Hematocrit 36.6 % (39.0-51.0) Mean Corpuscular Volume 81.8 FL (80.0-100.0) Mean Corpuscular Hemoglobin 27.3 PG (27.0-34.0) Mean Corpuscular Hemoglobin 33.4 % Concent (32.0-36.0) Red Cell Distribution Width 14.8 % (11.6-17.2) Platelet Count 319 TH/MM3 (150-450) Mean Platelet Volume 8.8 FL (7.0-11.0) Neutrophils (%) (Auto) 50.2 % (16.0-70.0) Lymphocytes (%) (Auto) 29.6 % (9.0-44.0) Monocytes (%) (Auto) 14.0 % (0.0-8.0) Eosinophils (%) (Auto) 4.9 % (0.0-4.0) Basophils (%) (Auto) 1.3 % (0.0-2.0) Neutrophils # (Auto) 4.9 TH/MM3 (1.8-7.7) Lymphocytes # (Auto) 2.9 TH/MM3 (1.0-4.8) Monocytes # (Auto) 1.4 TH/MM3 (0-0.9) Eosinophils # (Auto) 0.5 TH/MM3 (0-0.4) Basophils # (Auto) 0.1 TH/MM3 (0-0.2) CBC Comment DIFF FINAL Differential Comment Sodium Level 140 MEQ/L (136-145) Potassium Level 3.7 MEQ/L (3.5-5.1) Chloride Level 103 MEQ/L (98-107) Carbon Dioxide Level 28.5 MEQ/L (21.0-32.0) Anion Gap 9 MEQ/L (5-15) Blood Urea Nitrogen 10 MG/DL (7-18) Creatinine 1.01 MG/DL (0.60-1.30) Estimat Glomerular Filtration 100 ML/MIN Rate (>89) Random Glucose 87 MG/DL (74-106) Calcium Level 9.8 MG/DL (8.5-10.1) Magnesium Level 1.7 MG/DL (1.5-2.5) Total Bilirubin 0.6 MG/DL (0.2-1.0) Aspartate Amino Transf 57 U/L (15-37) (AST/SGOT) Alanine Aminotransferase 100 U/L (12-78) (ALT/SGPT) Alkaline Phosphatase 233 U/L (45-117) Total Protein 8.4 GM/DL (6.4-8.2) Albumin 2.7 GM/DL (3.4-5.0) Result Diagram: 10/06/16 04310/06/16 043 Procedures * 09/16/16 -PEG tube placement * 09/11/16 -ventriculostomy discontinued. * 09/10/16 -tracheostomy placement. * 09/04/16 -right arterial line placement * 09/01/16 -Right suboccipital craniectomy with evacuation of cerebellar hemorrhage; right frontal bur hole ventriculostomy placement. . Assessment and Plan Disease Oriented Problem List: (1) Spontaneous intraparenchymal intracranial hemorrhage, acute (2) Acute respiratory failure (3) Malignant hypertension Symptom Scale: (1) Shortness of breath 0-10 Scale: 0 Comment: Secondary to acute respiratory failure. Status post trach. Tolerating T-collar. (2) Pain 0-10 Scale: 0 Comment: Secondary to recent surgical intervention, hospitalization/bedrest. (3) Vomiting 0-10 Scale: 0 Pertinent Non-Medical Issues Psychosocial: . Has 2 children. Originally from [place]. Spiritual: Pentecostalism holly. Legal: No advance directives completed. Ethical issues impacting care: No advance directives completed. . Important Contacts /HCS Jaci Isabel ([phone]. . Prognosis Mr. Isabel is a 40-year-old male with no significant past medical history who presented on 09/01/16 with large right cerebellar hemisphere hemorrhage with extension into the isaac. He underwent right suboccipital craniectomy with evacuation of cerebellar hemorrhage; right frontal bur hole ventriculostomy placement. Patient at high risk for further complications, continue decline and . Poor prognosis for meaningful functional/neurological recovery. . Code Status: Full Code Plan * CODE STATUS: Full code. * HEALTHCARE DECISION-MAKER: Limited patient participation in medical decision- making secondary to clinical status. No advance directives completed. As per [place] law, patient's Jaci Isabel is proxy decision maker. Palliative care recommends shared decision-making at this time. * GOALS OF CARE: 10/08/16 -Patient and family electing to continue current aggressive care, status post trach and PEG. Patient and hopeful that patient can secure abbe bed at rehabilitation facility/LTAC for physical straightening. Patient communicating by mouthing words and hand gestures. Pt mouthing "I want to get better", "get strong". Patient with improved neurological status, now communicating and following commands. Participating in physical therapy. Goal of therapy is to eventually discharge to rehabilitation or home with home health/PT. Disposition at this time is to be determined, human services case manager following. Reviewed with that patient remains at risk for further complications, continue decline and given his acute injury, current clinical status and prolonged hospitalization. * SYMPTOMS: = Shortness of breath: Multifactorial. Secondary to acute respiratory failure/acute cerebellar hemorrhage. Status post tracheostomy and . Currently tolerating T-collar. Pulmonology following. = Pain: Secondary to recent surgical intervention, tracheostomy, bedrest status. Patient on oxycodone 10mg every 4 hours ATC and Dilaudid IV as needed. Pain control with current treatment plan. = Secretions: currently on Levsin and scopolamine patch. Appears controlled. = Agitation: Currently on Zyprexa every 8 hours ATC and Haldol as needed. * Active listening and ongoing emotional support provided to patient and . Both appreciative of my visit today. * Spiritual services following. * Case discussed with bedside RN. * Palliative care contact information has been provided to patient's . * Palliative care will continue to follow-up as needed for further clarifications of goals of care, assist with communication and to provide ongoing emotional and social support throughout this hospitalization. . Time Spent Total Floor Time (mins): 29 (Total time to include review medical records, physical exam, medical update to patient's family, goals of care conversation with . Case discussed with bedside RN.) >50% Counseling/Coord of Care: Yes Attestation To help prompt me to consider important information that might be impacting today's encounter and assessment, information from prior notes written by myself or my colleagues may have been "brought forward" into today's note. My signature on this note, however, is an attestation that I personally performed the exam, history, and/or decision-making noted today, and, unless otherwise indicated, the interactions with patient, family, and staff as well as the review of records all occurred today. I also attest that the listed assessment and stated plan reflect my best clinical judgment today based on the combination of historical information, prior notes, and today's exam/ interactions. When time spent is documented, it refers only to time spent today by the signer, or if indicated, combined time spent today by collaborating physician/nurse practitioner. Della Gonzalez Oct 08, 2016 14:25
[2016-10-08] MEDS: ENOXAPARIN SODIUM 40 MG/0.4 ML SYRINGE SQ SCH (14:31)
--- NOTE | 2016-10-08 14:34 | HHI.PR ---
Subjective Remarks awake and alert, aphasic seen with at bedside Objective Vitals Vital Signs Date Time Temp Pulse Resp B/P Pulse Ox O2 Delivery O2 Flow Rate FiO2 10/08/16 14:25 118 10/08/16 14:21 98 T-Piece 10/08/16 12:00 99.2 114 22 114/71 98 10/08/16 08:41 98.7 102 16 115/74 99 10/08/16 08:33 100 T-piece 10/08/16 04:41 96 Trach Collar 10/08/16 04:00 99.1 115 16 123/78 98 10/08/16 04:00 116 10/08/16 00:00 99.6 108 14 113/62 96 10/08/16 00:00 108 10/07/16 22:10 99 Trach Collar 5.00 10/07/16 20:00 99.4 116 19 127/85 96 10/07/16 20:00 116 10/07/16 19:00 96 T-Piece 10/07/16 16:00 100 10/07/16 16:00 99.2 106 11 120/88 97 I/O 10/07/16 10/07/16 10/07/16 10/08/16 10/08/16 10/08/16 07:00 15:00 23:00 07:00 15:00 23:00 Intake Total 470 ml 490 ml 513 ml 612 ml Output Total 500 ml 200 ml 400 ml Balance 470 ml -10 ml 313 ml 212 ml Tube Feeding 350 ml 390 ml 393 ml 492 ml Other 120 ml 100 ml 120 ml 120 ml Output Urine Total 500 ml 200 ml 400 ml # Voids 1 1 2 # Bowel Movements 0 0 0 Result Diagram: 10/06/16 0430 10/06/16 0430 Imaging Last Impressions Chest X-Ray 10/04/16 0000 Signed Impressions: Service Date/Time: Tuesday, October 04, 2016 10:26 - CONCLUSION: No acute pulmonary infiltrates. Reuben Fowler MD Abdomen/Pelvis CT 10/03/16 0000 Signed Impressions: Service Date/Time: Monday, October 03, 2016 17:01 - CONCLUSION: 1. No definite acute abnormality is seen. 2. G-tube in good position. 3. 2 linear metallic densities seen at the distal descending colon and the rectum likely related to anchors from the G-tube. Al Nixon MD Hepatobiliary Scan Nuclear Medicine 09/20/16 0000 Signed Impressions: Service Date/Time: Tuesday, September 20, 2016 09:28 - CONCLUSION: Delayed filling of what appears to be a contracted gallbladder suggesting the possibility of gallbladder dysfunction but no acute cholecystitis or cystic/common bile duct obstruction. Al Wong MD Liver Ultrasound 09/18/16 0000 Signed Impressions: Service Date/Time: Sunday, September 18, 2016 08:42 - CONCLUSION: Minimal sludge in the gallbladder with gallbladder wall thickening. The patient does not appear to be tender over the gallbladder. Champ Pascal MD FACR Gastrostomy Tube Placement 09/16/16 Signed Impressions: Service Date/Time: Friday, September 16, 2016 11:10 - CONCLUSION: Uncomplicated gastrostomy tube placement as above. Shady Shelby MD Abdomen X-Ray 09/10/16 0000 Signed Impressions: Service Date/Time: September 06:34 - CONCLUSION: Feeding tube tip in the stomach Al Hernandez MD Head CT 09/07/16 0600 Signed Impressions: Service Date/Time: Wednesday, September 07, 2016 06:05 - CONCLUSION: Stable brain appearance. Al Hernandez MD Neck CTA 09/01/162019 Signed Impressions: Service Date/Time: Thursday, September 01, 2016 20:55 - CONCLUSION: Unremarkable exam. The carotid arteries are intact. Ag Saxena MD Head CTA 09/01/162019 Signed Impressions: Service Date/Time: Thursday, September 01, 2016 20:55 - CONCLUSION: The etiology of the patient's right cerebellar h hemorrhage is not identified and there appears to be some infiltrates and possible pleural effusions in the upper lungs that are visualized. Erika Bob MD Objective Remarks awake and alert, aphasic anicteric trac in place lungs- occasional rhonchi regular rhythm abdomen- PEG in place bl;adder feels distended uncircumcised penis extremiteis no edema right sided hemiplegia Urinary Catheter: Yes Assessment to: Continue Joy insert reason: Obstruction/Retention Date of Insertion: Oct 08, 2016 A/P Problem List: (1) Cerebellar hemorrhage, acute ICD Code: I61.4 Status: Acute (2) Left hemiparesis ICD Code: G81.94 Status: Acute (3) Malignant hypertension ICD Code: I10 Status: Acute (4) Acute respiratory failure ICD Code: J96.00 Status: Acute (5) HCAP (healthcare-associated pneumonia) ICD Code: J18.9 Status: Acute Assessment and Plan 40 year old male admitted with a right cerebellar ICH. Status post craniectomy 09/01. Continue suction as needed. Levsin has had benefit. Continue occupational therapy, speech therapy, and physical therapy. Patient has had some movement in the left leg and arm, per family. No respiratory distress today. Status Post Acute right cerebellar hemorrhage L hemiparesis Status post suboccipital craniectomy with cerebellar hemorrhage evacuation and ventriculostomy on 09/01/16 Zyprexa continued Oxycodone continued Follow for fevers or hypothermia PT, OT, ST strong on the right hemibody, he has some movements on the left arm and Leg. Diplopia to continue intermittent Patch. Acute hypoxic and hypercarbic respiratory failure Aspiration Scheduled DuoNeb PRN Albuterol Enterobacter, Klebsiella in sputum, now Enterobacter is resistant to Rocephin. cefepime 2gm iv q8h started 09/15/16 completed for seven days, also had Tobramycin nebulized, for resistant Enterobacter Pulmonary Toilet and tracheostomy care Trach management per pulmonology, Cap trial per pulmonary yesterday night had cough and his tracheostomy tube was out on three opportunities. continue tracheostomy due to - aggessive suctioning - secretions management. continue Levsin Malignant Hypertension controlled Sinus tachycardia Continue Labetalol and hydralazine prn SBP <150. Continue Lopressor 5mg iv q4h prn for HR > 90. Continue Propranolol 20mg po q8h for tachycardia and agitation. Continue Norvasc 5 daily Elevated liver enzymes Improving through time Follow LFTs Urinary retention- incontinent - bladder scan -re place joy start Flomax . voiding trail in 3 days DVT Prophylaxis Lovenox, SCDs GI Prophylaxis Protonix Lines: PICC line No changes made to anterior assessment. Discussed with patient, his Continue TF Discharge Planning Will need prolonged Rehabilitation but first will need to be cleared by supervisory it specialist. Jeb Melendez MD Oct 08, 2016 14:34
[2016-10-08] MEDS: TAMSULOSIN HCL 0.4 MG CAP PO SCH (14:45)
--- NOTE | 2016-10-08 16:10 | HHI.PR ---
Subjective Remarks ASS NO DISTRESS TRACH OK FENESTRATED TRACH PLACED removed his trach this am replaced without any problems Objective Vital Signs Date Time Temp Pulse Resp B/P Pulse Ox O2 Delivery O2 Flow Rate FiO2 10/08/16 16:08 98.8 118 16 119/74 99 10/08/16 14:25 118 10/08/16 14:21 98 T-Piece 21 10/08/16 14:00 22 10/08/16 12:00 99.2 114 22 114/71 98 10/08/16 08:41 98.7 102 16 115/74 99 10/08/16 08:33 100 T-piece 10/08/16 04:41 96 Trach Collar 21 10/08/16 04:00 99.1 115 16 123/78 98 10/08/16 04:00 116 10/08/16 00:00 99.6 108 14 113/62 96 10/08/16 00:00 108 10/07/16 22:10 99 Trach Collar 5.00 21 10/07/16 20:00 99.4 116 19 127/85 96 10/07/16 20:00 116 10/07/16 19:00 96 T-Piece 21 I/O 10/07/16 10/07/16 10/07/16 10/08/16 10/08/16 10/08/16 07:00 15:00 23:00 07:00 15:00 23:00 Intake Total 470 ml 490 ml 513 ml 612 ml Output Total 500 ml 200 ml 400 ml Balance 470 ml -10 ml 313 ml 212 ml Tube Feeding 350 ml 390 ml 393 ml 492 ml Other 120 ml 100 ml 120 ml 120 ml Output Urine Total 500 ml 200 ml 400 ml Bladder Scan Volume Amount 290 ml # Voids 1 1 2 # Bowel Movements 0 0 0 Result Diagram: 10/06/16 0430 10/06/16 0430 Procedures Endotracheal Intubation Decompressive Craniectomy 09/02/16 PEG tube placement 09/16/16 Objective Remarks GENERAL: SKIN: Warm and dry. HEAD: Atraumatic. Normocephalic. EYES: Pupils equal and round. No scleral icterus. No injection or drainage. ENT: No nasal bleeding or discharge. Mucous membranes pink and moist. NECK: Tracheostomy in place CARDIOVASCULAR: Regular rate and rhythm. RESPIRATORY: No accessory muscle use. Clear to auscultation. Breath sounds equal bilaterally. GASTROINTESTINAL: Abdomen soft, non-tender, nondistended. Hepatic and splenic margins not palpable. MUSCULOSKELETAL: Extremities without clubbing, cyanosis, or edema. No obvious deformities. NEUROLOGICAL: Awake and alert. No obvious cranial nerve deficits. Motor grossly within normal limits. Five out of 5 muscle strength in the arms and legs. Normal speech. PSYCHIATRIC: Appropriate mood and affect; insight and judgment normal. Assessment and Plan Assessment and Plan ass respiratory failure IC bleed PLAN o2 as needed pulm. toilet REMOVE TRACHEOSTOMY WHEN POSSIBLE Reed Mcbride MD Oct 08, 2016 16:10
[2016-10-08] MEDS: CHLORHEXIDINE 0.12% (ORAL KIT) 15 ML CUP MT SCH (20:39)
[2016-10-08] MEDS: HYOSCYAMINE SOLN 0.125 MG/ML 15 ML BTL PO PRN (23:46)
[2016-10-09] VITALS (9 sets, daily range): BP systolic 108–139; BP diastolic 67–85; PULSE 91–107; RESP 12–20; TEMP 99–99.4; O2SAT 96–100
[2016-10-09] MEDS: CHLORHEXIDINE GLUCONATE 2 % 1 PACK (2 CLOTHS) TOP SCH (03:31)
[2016-10-09] MEDS: OLANZapine ODT 10 MG TAB PO SCH ×3 (03:31→21:09)
[2016-10-09] MEDS: guaiFENesin SOLUTION 200 MG/10 ML CUP PEG SCH ×6 (03:31→21:09)
[2016-10-09] MEDS: oxyCODONE HCL ORAL CONC 20 MG/ML SYRINGE PO SCH ×6 (03:31→22:22)
[2016-10-09] MEDS: DILTIAZEM HCL 30 MG TAB PO SCH ×3 (05:23→18:19)
[2016-10-09] MEDS: PROPRANOLOL HCL 20 MG TAB PO SCH ×3 (05:23→21:09)
[2016-10-09] MEDS: METOCLOPRAMIDE HCL SYRUP 10 MG/10 ML UDC PO SCH ×4 (06:44→21:09)
[2016-10-09] MEDS: TAMSULOSIN HCL 0.4 MG CAP PO SCH (09:00)
[2016-10-09] MEDS: SODIUM CHLORIDE 0.9% FLUSH 10 ML FLUSH SCH ×2 (09:00→21:09)
[2016-10-09] MEDS: CHLORHEXIDINE 0.12% (ORAL KIT) 15 ML CUP MT SCH ×2 (10:18→21:09)
[2016-10-09] MEDS: SODIUM CHLORIDE 0.9% FLUSH 10 ML FLUSH IV FLUSH SCH (10:19)
[2016-10-09] MEDS: PANTOPRAZOLE SODIUM 40 MG VIAL IV SCH (10:19)
[2016-10-09] MEDS: BISACODYL 10 MG SUPP RECTAL SCH (10:20)
[2016-10-09] MEDS: amLODIPine BESYLATE 5 MG TAB PO SCH (10:21)
[2016-10-09] MEDS: HYOSCYAMINE SOLN 0.125 MG/ML 15 ML BTL PO PRN (10:21)
[2016-10-09] MEDS: DOCUSATE SODIUM 50 MG/SENNA 8.6 MG TAB PO SCH ×2 (10:21→21:09)
--- NOTE | 2016-10-09 11:17 | HHI.PR ---
Objective Vitals Vital Signs Date Time Temp Pulse Resp B/P Pulse Ox O2 Delivery O2 Flow Rate FiO2 10/09/16 07:55 96 T-piece 10/09/16 04:00 107 10/09/16 04:00 99.2 107 15 108/70 98 10/09/16 00:00 99.3 103 18 139/85 97 10/09/16 00:00 103 10/08/16 20:33 98 Trach Collar 10/08/16 20:00 99.1 118 17 121/81 97 10/08/16 20:00 118 10/08/16 19:00 97 Trach Collar 10/08/16 18:52 124 10/08/16 16:30 20 10/08/16 16:08 98.8 118 16 119/74 99 10/08/16 14:25 118 10/08/16 14:21 98 T-Piece 10/08/16 12:00 99.2 114 22 114/71 98 I/O 10/08/16 10/08/16 10/08/16 10/09/16 10/09/16 10/09/16 07:00 15:00 23:00 07:00 15:00 23:00 Intake Total 612 ml 1229 ml 663 ml Output Total 400 ml 900 ml 150 ml Balance 212 ml 329 ml 513 ml Tube Feeding 492 ml 989 ml 463 ml Other 120 ml 240 ml 200 ml Output Urine Total 400 ml 900 ml 150 ml Bladder Scan Volume Amount 290 ml # Voids 2 1 # Bowel Movements 0 0 0 Result Diagram: 10/06/16 0430 10/06/16 0430 Date of Insertion: Oct 08, 2016 Jeb Melendez MD Oct 09, 2016 11:17 lungs- occasional rhonchi regular rhythm abdomen- PEG in place bl;adder feels distended uncircumcised penis extremiteis no edema right sided hemiplegia Date of Insertion: Oct 08, 2016 A/P Problem List: (1) Cerebellar hemorrhage, acute ICD Code: I61.4 Status: Acute (2) Left hemiparesis ICD Code: G81.94 Status: Acute (3) Malignant hypertension ICD Code: I10 Status: Acute (4) Acute respiratory failure ICD Code: J96.00 Status: Acute (5) HCAP (healthcare-associated pneumonia) ICD Code: J18.9 Status: Acute Assessment and Plan 40 year old male admitted with a right cerebellar ICH. Status post craniectomy 09/01. Continue suction as needed. Levsin has had benefit. Continue occupational therapy, speech therapy, and physical therapy. Patient has had some movement in the left leg and arm, per family. No respiratory distress today. Status Post Acute right cerebellar hemorrhage L hemiparesis Status post suboccipital craniectomy with cerebellar hemorrhage evacuation and ventriculostomy on 09/01/16 Zyprexa continued Oxycodone continued Follow for fevers or hypothermia PT, OT, ST strong on the right hemibody, he has some movements on the left arm and Leg. Diplopia to continue intermittent Patch. Acute hypoxic and hypercarbic respiratory failure Aspiration Scheduled DuoNeb PRN Albuterol Enterobacter, Klebsiella in sputum, now Enterobacter is resistant to Rocephin. cefepime 2gm iv q8h started 09/15/16 completed for seven days, also had Tobramycin nebulized, for resistant Enterobacter Pulmonary Toilet and tracheostomy care Trach management per pulmonology, Cap trial per pulmonary yesterday night had cough and his tracheostomy tube was out on three opportunities. continue tracheostomy due to - aggessive suctioning - secretions management. continue Levsin Malignant Hypertension controlled Sinus tachycardia Continue Labetalol and hydralazine prn SBP <150. Continue Lopressor 5mg iv q4h prn for HR > 90. Continue Propranolol 20mg po q8h for tachycardia and agitation. Continue Norvasc 5 daily Elevated liver enzymes Improving through time Follow LFTs Urinary retention- incontinent - bladder scan -re place joy start Flomax . voiding trail in 3 days DVT Prophylaxis Lovenox, SCDs GI Prophylaxis Protonix Lines: PICC line No changes made to anterior assessment. Discussed with patient, his Continue TF Discharge Planning Will need prolonged Rehabilitation but first will need to be cleared by global marketing specialist. Jeb Melendez MD Oct 09, 2016 11:17
--- NOTE | 2016-10-09 11:26 | HHI.PR ---
Subjective Remarks awake and alert, interactive ff all commands aphasic Objective Vitals Vital Signs Date Time Temp Pulse Resp B/P Pulse Ox O2 Delivery O2 Flow Rate FiO2 10/09/16 07:55 96 T-piece 10/09/16 04:00 107 10/09/16 04:00 99.2 107 15 108/70 98 10/09/16 00:00 99.3 103 18 139/85 97 10/09/16 00:00 103 10/08/16 20:33 98 Trach Collar 10/08/16 20:00 99.1 118 17 121/81 97 10/08/16 20:00 118 10/08/16 19:00 97 Trach Collar 10/08/16 18:52 124 10/08/16 16:30 20 10/08/16 16:08 98.8 118 16 119/74 99 10/08/16 14:25 118 10/08/16 14:21 98 T-Piece 10/08/16 12:00 99.2 114 22 114/71 98 I/O 10/08/16 10/08/16 10/08/16 10/09/16 10/09/16 10/09/16 07:00 15:00 23:00 07:00 15:00 23:00 Intake Total 612 ml 1229 ml 663 ml Output Total 400 ml 900 ml 150 ml Balance 212 ml 329 ml 513 ml Tube Feeding 492 ml 989 ml 463 ml Other 120 ml 240 ml 200 ml Output Urine Total 400 ml 900 ml 150 ml Bladder Scan Volume Amount 290 ml # Voids 2 1 # Bowel Movements 0 0 0 Result Diagram: 10/06/16 0430 10/06/16 0430 Imaging Last Impressions Chest X-Ray 10/04/16 0000 Signed Impressions: Service Date/Time: Tuesday, October 04, 2016 10:26 - CONCLUSION: No acute pulmonary infiltrates. Reuben Fowler MD Abdomen/Pelvis CT 10/03/16 0000 Signed Impressions: Service Date/Time: Monday, October 03, 2016 17:01 - CONCLUSION: 1. No definite acute abnormality is seen. 2. G-tube in good position. 3. 2 linear metallic densities seen at the distal descending colon and the rectum likely related to anchors from the G-tube. lA Nixon MD Hepatobiliary Scan Nuclear Medicine 09/20/16 0000 Signed Impressions: Service Date/Time: Tuesday, September 20, 2016 09:28 - CONCLUSION: Delayed filling of what appears to be a contracted gallbladder suggesting the possibility of gallbladder dysfunction but no acute cholecystitis or cystic/common bile duct obstruction. Al Wong MD Liver Ultrasound 09/18/16 Signed Impressions: Service Date/Time: Sunday, September 18, 2016 08:42 - CONCLUSION: Minimal sludge in the gallbladder with gallbladder wall thickening. The patient does not appear to be tender over the gallbladder. Champ Pascal MD FACR Gastrostomy Tube Placement 09/16/16 Signed Impressions: Service Date/Time: Friday, September 16, 2016 11:10 - CONCLUSION: Uncomplicated gastrostomy tube placement as above. Shady Shelby MD Abdomen X-Ray 09/10/16 Signed Impressions: Service Date/Time: September 06:34 - CONCLUSION: Feeding tube tip in the stomach Al Hernandez MD Head CT 09/07/16 0600 Signed Impressions: Service Date/Time: Wednesday, September 07, 2016 06:05 - CONCLUSION: Stable brain appearance. Al Hernandez MD Neck CTA 09/01/162019 Signed Impressions: Service Date/Time: Thursday, September 01, 2016 20:55 - CONCLUSION: Unremarkable exam. The carotid arteries are intact. Ag Saxena MD Head CTA 09/01/162019 Signed Impressions: Service Date/Time: Thursday, September 01, 2016 20:55 - CONCLUSION: The etiology of the patient's right cerebellar h hemorrhage is not identified and there appears to be some infiltrates and possible pleural effusions in the upper lungs that are visualized. Erika Bob MD Objective Remarks awake and alert, aphasic anicteric trac in place lungs- no wheezes, no rales regular rhythm abdomen- PEG in place joy replaced - uncircumcised penis extremities no edema right sided hemiplegia Date of Insertion: Oct 08, 2016 A/P Problem List: (1) Cerebellar hemorrhage, acute ICD Code: I61.4 Status: Acute (2) Left hemiparesis ICD Code: G81.94 Status: Acute (3) Malignant hypertension ICD Code: I10 Status: Acute (4) Acute respiratory failure ICD Code: J96.00 Status: Acute (5) HCAP (healthcare-associated pneumonia) ICD Code: J18.9 Status: Acute Assessment and Plan 40 year old male admitted with a right cerebellar ICH. Status post craniectomy 09/01. Continue suction as needed. Levsin has had benefit. Continue occupational therapy, speech therapy, and physical therapy. Patient has had some movement in the left leg and arm, per family. No respiratory distress today. Status Post Acute right cerebellar hemorrhage L hemiparesis Status post suboccipital craniectomy with cerebellar hemorrhage evacuation and ventriculostomy on 09/01/16 Zyprexa continued Oxycodone continued Follow for fevers or hypothermia PT, OT, ST strong on the right hemibody, he has some movements on the left arm and Leg. Diplopia to continue intermittent Patch. Acute hypoxic and hypercarbic respiratory failure Aspiration Scheduled DuoNeb PRN Albuterol Enterobacter, Klebsiella in sputum, now Enterobacter is resistant to Rocephin. cefepime 2gm iv q8h started 09/15/16 completed for seven days, also had Tobramycin nebulized, for resistant Enterobacter Pulmonary Toilet and tracheostomy care Trach management per pulmonology, Cap trial per pulmonary yesterday night had cough and his tracheostomy tube was out on three opportunities. continue tracheostomy due to - aggessive suctioning - secretions management. continue Levsin Malignant Hypertension controlled Sinus tachycardia Continue Labetalol and hydralazine prn SBP <150. Continue Lopressor 5mg iv q4h prn for HR > 90. Continue Propranolol 20mg po q8h for tachycardia and agitation. Continue Norvasc 5 daily continue to adjust Elevated liver enzymes Improving through time Follow LFTs Urinary retention- incontinent - bladder scan -re place joy 10/08 start Flomax - unable to use flomax through PEG - Urology consult for recommendation - voiding trial next few days DVT Prophylaxis Lovenox, SCDs GI Prophylaxis Protonix Lines: PICC line No changes made to anterior assessment. Discussed with patient, his Continue TF Discharge Planning Will need prolonged Rehabilitation but first will need to be cleared by curriculum development specialist. Jeb Melendez MD Oct 09, 2016 11:26
[2016-10-09] MEDS: ONDANSETRON HCL 4 MG/2 ML VIAL IV PUSH PRN (11:48)
[2016-10-09] MEDS: ENOXAPARIN SODIUM 40 MG/0.4 ML SYRINGE SQ SCH (14:26)
--- NOTE | 2016-10-09 14:51 | PD.CONS ---
[facility] Service Rehabilitation Medicine Consult Requested By Dr. Melendez Reason for Consult Comprehensive rehabilitation evaluation. Primary Care Physician Unknown History of Present Illness Lori Isabel is a 40 year old male admitted to [facility] 09/01/16 with severe headache. GCS initially 13 but decreased to 3 and he was intubated. Head CT showed right cerebellar hemorrhage 4.9 by 5.7 cm with effacement of the 4th ventricle. He underwent right suboccipital craniectomy with evacuation of cerebellar hemorrhage with ventriculostomy placement by Dr. Ovalles 09/01/16. Trach was placed 09/10/16 and has been changed to fenestrated. Pulmonary is following. Gastrostomy tube placed by IR . His course has included: malignant hypertension and pneumonia. Review of Systems ROS Limitations: Clinical Condition, Speech Impaired, Other (Trach) Past Family Social History Allergies: Coded Allergies: No Known Allergies (Unverified , 09/09/16) Past Medical History Unable to obtain Past Surgical History Unable to obtain Current Medications Current Medications Medications (Trade) Dose Ordered Sig/Demetris Route Start Time Stop Time Status Last Admin (NS Flush) 2 ml UNSCH PRN .XX 09/01/16 21:00 (NS Flush) 2 ml BID .XX 09/01/16 21:00 10/08/16 20:40 (Protonix Inj) 40 mg DAILY IV 09/02/16 09:00 10/09/16 10:19 Miscellaneous Information 1 Q361D XX 09/01/16 21:00 (Chlorhexidine 2% Cloth) Taper DAILY@04 TOP 09/02/16 04:00 08/29/17 03:59 09/28/16 04:00 Chlorhexidine Gluconate 3 pack 3 pack UNSCH PRN TOP 09/01/16 21:00 Potassium Chloride 100 ml @ 50 mls/hr Q2H PRN IV 09/01/16 21:15 09/02/16 04:54 (KCl 20 Meq Premix Inj) 100 ml @ 50 mls/hr Q2H PRN IV 09/01/16 21:15 Potassium Bicarb/ Potassium Chloride 50 meq 50 meq UNSCH PRN PO 09/01/16 21:15 Potassium Chloride 100 ml @ 25 mls/hr UNSCH PRN IV 09/01/16 21:15 09/23/16 12:30 Potassium Chloride 100 ml @ 50 mls/hr Q2H PRN IV 09/01/16 21:15 (Magnesium Sulfate Inj/NS Inj) 100 ml @ 50 mls/hr UNSCH PRN IV 09/01/16 21:15 Magnesium Oxide 800 mg 800 mg UNSCH PRN PO 09/01/16 21:15 (Magnesium Sulfate Inj/NS Inj) 100 ml @ 50 mls/hr UNSCH PRN IV 09/01/16 21:15 09/02/16 08:18 Potassium Phosphate 2000 mg 2,000 mg Q4H PRN PO 09/01/16 21:15 (Sodium Phosphate Inj/NS 250 ml Inj) 250 ml @ 42 mls/hr UNSCH PRN IV 09/01/16 21:15 09/02/16 08:18 (K-Phos) 2,000 mg UNSCH PRN PO/TUBE 09/01/16 21:15 (D50w (Vial) Inj) 50 ml UNSCH PRN IV 09/01/16 21:15 (Glucagon Inj) 1 mg UNSCH PRN OTHER 09/01/16 21:15 (Peridex 0.12% Liq) 15 ml BID@08,20 MT 09/02/16 08:00 10/09/16 10:18 (Trandate Inj) 10 mg Q4H PRN IV PUSH 09/02/16 00:45 09/19/16 12:25 (Ofirmev Inj) 1,000 mg Q6H PRN IV 09/02/16 01:00 09/24/16 00:22 (Zofran Inj) 4 mg Q6HR PRN IV PUSH 09/02/16 01:00 10/09/16 11:48 (Reglan Liq) 10 mg ACHS PO 09/03/16 11:00 10/09/16 10:20 (Dulcolax Supp) 10 mg DAILY RECTAL 09/04/16 09:00 10/09/16 10:20 (Tania-Colace) 1 tab BID PO 09/03/16 09:45 10/09/16 10:21 (Lopressor Inj) 5 mg Q4H PRN IV PUSH 09/06/16 10:15 09/24/16 15:35 (NS Flush) See Protocol DAILY IV FLUSH 09/11/16 09:00 10/09/16 10:19 (NS Flush) See Protocol UNSCH PRN IV FLUSH 09/10/16 14:45 10/01/16 09:42 (Heparin Central Flush) See Protocol DAILY IV FLUSH 09/11/16 09:00 10/09/16 10:19 (Heparin Central Flush) See Protocol UNSCH PRN IV FLUSH 09/10/16 14:45 09/14/16 05:40 (NS Flush) UNSCH PRN IV FLUSH 09/10/16 14:45 (Thorazine Inj) 25 mg Q4H PRN IM 09/12/16 09:30 09/13/16 19:50 (Lopressor) 50 mg Q12HR PO 09/13/16 09:15 Hold 09/14/16 20:56 (Norvasc) 5 mg DAILY PO 09/13/16 09:15 10/09/16 10:21 (Haldol Inj) 5 mg Q4H PRN IV PUSH 09/14/16 10:45 10/05/16 18:39 (ZyPREXA ZYDIS ODT) 10 mg Q8H PO 09/14/16 12:00 10/09/16 10:21 (Dilaudid Pf Inj) 0.5 mg Q4H PRN IV PUSH 09/14/16 10:45 10/07/16 13:32 (Roxicodone Intensol Liq) 10 mg Q4H PO 09/14/16 11:00 10/09/16 14:26 (Inderal) 20 mg Q8HR PO 09/15/16 06:23 10/09/16 14:25 (Transderm-Scop 1.5 Mg Patch.72 Hr) 1 patch Q3D T-DERMAL 09/19/16 12:00 10/07/16 12:33 Miscellaneous Information 1 Q3D T-DERMAL 09/22/16 12:00 10/07/16 12:33 (Lovenox Inj) 40 mg Q24H SQ 09/21/16 14:00 10/09/16 14:26 (Levsin Liq) 0.125 mg Q4H PRN PO 09/25/16 12:30 10/09/16 10:21 (Cardizem) 30 mg Q6HR PO 09/25/16 18:00 10/09/16 10:21 (Robitussin Liq) 200 mg Q4H PEG 10/05/16 14:00 10/09/16 14:26 (Flomax) 0.4 mg DAILY PO 10/08/16 14:45 Family History Unable to obtain Social History Lives in [place], [place] with . 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 Exam I&O / VS 10/08/16 10/08/16 10/09/16 15:00 23:00 07:00 Intake Total 1229 ml 663 ml Output Total 900 ml 150 ml Balance 329 ml 513 ml Tube Feeding 989 ml 463 ml Other 240 ml 200 ml Output Urine Total 900 ml 150 ml Bladder Scan Volume Amount 290 ml # Voids 1 # Bowel Movements 0 0 Vital Signs Date Time Temp Pulse Resp B/P Pulse Ox O2 Delivery O2 Flow Rate FiO2 10/09/16 12:00 100 10/09/16 12:00 99.4 100 15 120/80 97 10/09/16 10:00 94 10/09/16 08:00 91 10/09/16 08:00 99.0 94 14 112/76 96 10/09/16 07:55 96 T-piece 21 10/09/16 07:00 96 Trach Collar 21 10/09/16 04:00 107 10/09/16 04:00 99.2 107 15 108/70 98 10/09/16 00:00 99.3 103 18 139/85 97 10/09/16 00:00 103 10/08/16 20:33 98 Trach Collar 21 10/08/16 20:00 99.1 118 17 121/81 97 10/08/16 20:00 118 10/08/16 19:00 97 Trach Collar 21 10/08/16 18:52 124 10/08/16 16:30 20 10/08/16 16:08 98.8 118 16 119/74 99 General: No acute distress Respiratory: BS equal, Coarse breath sounds Gastrointestinal: Positive Bowel Sounds, Non-Tender Cardiovascular: Normal rate (Tachycardic), Regular Rhythm Psychiatric: Cooperative Orientation: oriented to Self Neurologic: Pupils (Reactive bilaterally), EOM (Nystagmus left greater than right), Other (Tongue deviates left) Motor: Right Upper Extremity (5/5), Left Upper Extremity (Grossly 2-3/5), Right Lower Extremity (5/5), Left Lower Extremity (Grossly 1-2/5) Clonus: Positive (Left ankle) Assessment and Plan Diagnosis: (1) Cerebellar hemorrhage, acute Assessment 1. Right cerebellar hemorrhage 09/01/16 S/P right suboccipital craniectomy with evacuation of cerebellar hemorrhage with ventriculostomy placement 2. Tracheostomy 09/10/16 now with fenestrated. Pulmonary is following. 3. Gastrostomy tube . 4. Malignant hypertension 5. Pneumonia Plan 1. PT mobilizing and mod max assist to transfer supine to sit 2. OT for ADL's and currently dependent 3. ST following for swallow and no swallow reflex at present 4. Reposition q 2 hours to protect skin and monitor carefully. Roho cushion when up to stretcher chair 5. Would consider decreasing Roxicodone 6. Patient will need ongoing inpatient rehabilitation care and case management is assisting with Medicaid. Will follow up for status of abbe application 7. Will follow while hospitalized and at discharge Thank you for this consult. Ella Healy MD Oct 09, 2016 14:51
--- NOTE | 2016-10-09 18:38 | HHI.PR ---
Subjective Remarks ASS NO DISTRESS TRACH OK FENESTRATED TRACH PLACED removed his trach this am replaced without any problems Objective Vital Signs Date Time Temp Pulse Resp B/P Pulse Ox O2 Delivery O2 Flow Rate FiO2 10/09/16 16:00 97 10/09/16 16:00 99.0 97 12 108/67 98 10/09/16 12:00 100 10/09/16 12:00 99.4 100 15 120/80 97 10/09/16 10:00 94 10/09/16 08:00 91 10/09/16 08:00 99.0 94 14 112/76 96 10/09/16 07:55 96 T-piece 21 10/09/16 07:00 96 Trach Collar 21 10/09/16 04:00 107 10/09/16 04:00 99.2 107 15 108/70 98 10/09/16 00:00 99.3 103 18 139/85 97 10/09/16 00:00 103 10/08/16 20:33 98 Trach Collar 21 10/08/16 20:00 99.1 118 17 121/81 97 10/08/16 20:00 118 10/08/16 19:00 97 Trach Collar 21 10/08/16 18:52 124 I/O 10/08/16 10/08/16 10/08/16 10/09/16 10/09/16 10/09/16 07:00 15:00 23:00 07:00 15:00 23:00 Intake Total 612 ml 1229 ml 663 ml 397 ml Output Total 400 ml 900 ml 150 ml 300 ml 0 ml Balance 212 ml 329 ml 513 ml 97 ml 0 ml IV Total 0 ml Tube Feeding 492 ml 989 ml 463 ml 397 ml Other 120 ml 240 ml 200 ml Output Urine Total 400 ml 900 ml 150 ml 250 ml Emesis 50 ml Tube Feeding Residual Discard 0 ml 0 ml Bladder Scan Volume Amount 290 ml # Voids 2 1 # Bowel Movements 0 0 0 0 Result Diagram: 10/06/1642910/06/16429 Procedures Endotracheal Intubation Decompressive Craniectomy 09/02/16 PEG tube placement 09/16/16 Objective Remarks GENERAL: SKIN: Warm and dry. HEAD: Atraumatic. Normocephalic. EYES: Pupils equal and round. No scleral icterus. No injection or drainage. ENT: No nasal bleeding or discharge. Mucous membranes pink and moist. NECK: Tracheostomy in place CARDIOVASCULAR: Regular rate and rhythm. RESPIRATORY: No accessory muscle use. Clear to auscultation. Breath sounds equal bilaterally. GASTROINTESTINAL: Abdomen soft, non-tender, nondistended. Hepatic and splenic margins not palpable. MUSCULOSKELETAL: Extremities without clubbing, cyanosis, or edema. No obvious deformities. NEUROLOGICAL: Awake and alert. No obvious cranial nerve deficits. Motor grossly within normal limits. Five out of 5 muscle strength in the arms and legs. Normal speech. PSYCHIATRIC: Appropriate mood and affect; insight and judgment normal. Assessment and Plan Assessment and Plan ass respiratory failure IC bleed PLAN o2 as needed pulm. toilet REMOVE TRACHEOSTOMY WHEN POSSIBLE Reed Mcbride MD Oct 09, 2016 18:38
[2016-10-10] VITALS (8 sets, daily range): BP systolic 109–128; BP diastolic 69–89; PULSE 95–108; RESP 10–23; TEMP 98.6–99.3; O2SAT 96–100
[2016-10-10] MEDS: DILTIAZEM HCL 30 MG TAB PO SCH ×5 (00:11→23:40)
[2016-10-10] MEDS: oxyCODONE HCL ORAL CONC 20 MG/ML SYRINGE PO SCH ×6 (02:14→23:40)
[2016-10-10] MEDS: guaiFENesin SOLUTION 200 MG/10 ML CUP PEG SCH ×6 (02:14→21:16)
[2016-10-10] MEDS: OLANZapine ODT 10 MG TAB PO SCH ×3 (04:50→20:18)
[2016-10-10] MEDS: CHLORHEXIDINE GLUCONATE 2 % 1 PACK (2 CLOTHS) TOP SCH (04:50)
[2016-10-10] MEDS: PROPRANOLOL HCL 20 MG TAB PO SCH ×3 (05:29→21:16)
[2016-10-10] MEDS: CHLORHEXIDINE 0.12% (ORAL KIT) 15 ML CUP MT SCH ×2 (08:00→20:15)
[2016-10-10] MEDS: METOCLOPRAMIDE HCL SYRUP 10 MG/10 ML UDC PO SCH ×4 (08:33→21:16)
[2016-10-10] MEDS: SODIUM CHLORIDE 0.9% FLUSH 10 ML FLUSH SCH ×2 (08:33→20:19)
[2016-10-10] MEDS: SODIUM CHLORIDE 0.9% FLUSH 10 ML FLUSH IV FLUSH SCH (08:33)
[2016-10-10] MEDS: TAMSULOSIN HCL 0.4 MG CAP PO SCH (08:34)
[2016-10-10] MEDS: BISACODYL 10 MG SUPP RECTAL SCH (08:34)
[2016-10-10] MEDS: PANTOPRAZOLE SODIUM 40 MG VIAL IV SCH (08:34)
[2016-10-10] MEDS: DOCUSATE SODIUM 50 MG/SENNA 8.6 MG TAB PO SCH ×2 (08:34→21:16)
[2016-10-10] MEDS: amLODIPine BESYLATE 5 MG TAB PO SCH (08:34)
[2016-10-10] MEDS: REMOVE OLD SCOPOLAMINE PATCH T-DERMAL SCH (11:10)
[2016-10-10] MEDS: SCOPOLAMINE 1.5 MG PATCH T-DERMAL SCH (11:10)
--- NOTE | 2016-10-10 12:54 | MB ---
cc: ESPERANZA TREVINO MD DATE OF CONSULTATION: 10/10/2016. REASON FOR CONSULTATION: Recurrent urinary retention. HISTORY OF PRESENT ILLNESS: This patient is a 40-year-old -[place] male who presented to [facility] on September 01, 2016 with a severe headache. Initially he had been doing well but his Chetan Coma Scale was initially 13 on presentation; however, it decreased to 3 acutely and he was subsequently intubated. He had a head CT done, which showed a right subarachnoid hemorrhage approximately 6 cm with effacement of the fourth ventricle. He subsequently underwent a right suboccipital craniectomy with evacuation of subdural hemorrhage with ventriculostomy placement by Dr. Ovalles on 09/01/2016. A catheter was placed at that time. He then had a trache inserted on 09/10/2016 and a gastrostomy tube placed on 09/16/2016. During this admission, his catheter has been removed four times and he has failed a void trial each time. Most recently three days ago when his catheter was removed, he was able to urinate on his own but around midnight however six hours later, his bed sheets were wet but he had not urinated. Since it was six hours later, he underwent intermittent catheterization for approximately 200 mL. Six hours later, a second intermittent catheterization was performed with again 200 mL and then an indwelling Kumar catheter was subsequently left in place and urology was consulted. Per his , he did have some urinary issues prior to his admission including having trouble holding his urine and occasional urinary incontinence. He denies any history of kidney stones, hematuria or urinary tract infection in the past. Denies any family history of genitourinary malignancies. He is currently not on IV fluids and getting his nutrition through the gastrostomy tube through tube feeds. He denies fevers, chills or any abdominal pain or flank pain. ALLERGIES: NO KNOWN DRUG ALLERGIES. PAST MEDICAL HISTORY: 1. Pneumonia. 2. Malignant hypertension. 3. Cerebellar hemorrhage. 4. Left hemiparesis. PAST SURGICAL HISTORY: 1. Circumcision. SOCIAL HISTORY: Denies smoking, alcohol or illicit drug use. He is currently . HOME MEDICATIONS: None. FAMILY HISTORY: No evidence of urolithiasis or genitourinary malignancies. REVIEW OF SYSTEMS: See the history of present illness, otherwise all systems reviewed otherwise are negative. PHYSICAL EXAMINATION: VITAL SIGNS: Temperature 98.7, pulse 100, respiratory rate of 23, blood pressure 115/79, satting 99% on FIO2 of 21. GENERAL: In general, he is alert and oriented times three and in no apparent distress. He is aphasic. He appears his stated age. HEAD, EYES, EARS, NOSE, THROAT: Head is normocephalic and atraumatic. SKIN: No ulcers or rashes. The mucous membranes are pink and dry. LUNGS: Nonlabored respirations. Has a trache in place. No wheezes, rales or rhonchi. HEART: Regular rate and rhythm. No murmurs, gallops or rubs. ABDOMEN: The abdomen is soft, nontender and nondistended. Positive bowel sounds. GENITOURINARY: His penis is circumcised. Testes are descended bilaterally and normal in size and consistency. Kumar draining clear yellow urine. RECTAL: Not indicated at this time. EXTREMITIES: Nontender. No cyanosis, clubbing or edema. PSYCHIATRIC: Appears somewhat agitated. NEUROLOGIC: Cranial nerves - he is aphasic with left hemiparesis. LABS: White count 9.8, hemoglobin 12.2, hematocrit 36.6, platelet count 319,000. Sodium 140, potassium 3.7, chloride 103, bicarbonate 28.5, BUN 10, creatinine 1.01. IMAGING STUDIES: CT of the abdomen and pelvis with IV contrast on 10/03/2016: Images were reviewed. Agree with radiologist's report. The kidneys appear to be normal. No evidence of hydronephrosis or stones. Kumar catheter is currently in place. ASSESSMENT AND PLAN: The patient is a 40-year-old male with ____ hemorrhage status post a craniotomy, evacuation of subdural hemorrhage and ventriculostomy by Dr. Ovalles who presents with recurring urinary retention. PLAN: 1. I recommend discontinuation of the Kumar catheter. 2. The patient likely is experiencing symptoms of a neurogenic bladder secondary to the right cerebellar hemorrhage. I also suspect he is not producing a lot of urine based on his the intake of his G-tube. Recommend bladder scanning every 6 hours and if his volume is less than 500, hold off on intermittent catheterization; however, if it is greater than 500, or he has not voided in 12 hours, then will do straight intermittent catheterization. 3. Hopefully as he regains function from his intracranial hemorrhage, he will regain back his normal bladder function. Until then, recommend intermittent catheterization as described above and waiting for his bladder function to return. 4. I do not think at this time he needs Flomax as this is unlikely to be a prostate-related issue based on his age and clinical history. This was discussed with the , he patient himself and the nurse, and they agree with the plan. Thank you for this consultation. Esperanza Trevino MD EMNgoc/KARLOS /11:25 AM /12:35 PM
[2016-10-10] MEDS: ONDANSETRON HCL 4 MG/2 ML VIAL IV PUSH PRN (13:25)
[2016-10-10] MEDS: ENOXAPARIN SODIUM 40 MG/0.4 ML SYRINGE SQ SCH (14:21)
--- NOTE | 2016-10-10 15:36 | HHI.PR ---
Subjective Remarks awake and alert interactive tolerating tube feedings Objective Vitals Vital Signs Date Time Temp Pulse Resp B/P Pulse Ox O2 Delivery O2 Flow Rate FiO2 10/10/16 12:00 98.6 106 17 119/69 96 10/10/16 12:00 106 10/10/16 08:46 98 Trach Collar 5.00 21 10/10/16 08:00 98.7 108 23 115/79 99 10/10/16 08:00 100 10/10/16 07:00 99 Trach Collar 21 10/10/16 04:00 96 10/10/16 04:00 99.2 96 16 109/73 98 10/10/16 00:00 95 10/10/16 00:00 99.3 95 12 115/71 98 10/09/16 20:40 100 Trach Collar 21 10/09/16 20:00 100 10/09/16 20:00 99.1 100 20 118/73 99 10/09/16 19:00 99 Trach Collar 21 10/09/16 16:00 97 10/09/16 16:00 99.0 97 12 108/67 98 I/O 10/09/16 10/09/16 10/09/16 10/10/16 10/10/16 10/10/16 07:00 15:00 23:00 07:00 15:00 23:00 Intake Total 663 ml 397 ml 607 ml 602 ml 658 ml Output Total 150 ml 300 ml 275 ml 201 ml 750 ml Balance 513 ml 97 ml 332 ml 401 ml -92 ml IV Total 0 ml 0 ml 0 ml 0 ml Tube Feeding 463 ml 397 ml 457 ml 402 ml 358 ml Tube Irrigant 150 ml 200 ml 300 ml Other 200 ml Output Urine Total 150 ml 250 ml 275 ml 200 ml 750 ml Stool Total 1 ml Emesis 50 ml 0 ml Tube Feeding Residual Discard 0 ml 0 ml # Bowel Movements 0 0 0 1 Result Diagram: 10/06/160 10/06/16 0430 Imaging Objective Remarks awake and alert, aphasic anicteric trac in place lungs- no wheezes, no rales regular rhythm abdomen- PEG in place joy in place uncircumcised penis extremities no edema right sided hemiplegia Date of Insertion: Oct 08, 2016 Date of Removal: Oct 10, 2016 A/P Problem List: (1) Cerebellar hemorrhage, acute ICD Code: I61.4 Status: Acute (2) Left hemiparesis ICD Code: G81.94 Status: Acute (3) Malignant hypertension ICD Code: I10 Status: Acute (4) Acute respiratory failure ICD Code: J96.00 Status: Acute (5) HCAP (healthcare-associated pneumonia) ICD Code: J18.9 Status: Acute Assessment and Plan 40 year old male admitted with a right cerebellar ICH. Status post craniectomy 09/01. Continue suction as needed. Levsin has had benefit. Continue occupational therapy, speech therapy, and physical therapy. Patient has had some movement in the left leg and arm, per family. No respiratory distress today. Status Post Acute right cerebellar hemorrhage L hemiparesis Status post suboccipital craniectomy with cerebellar hemorrhage evacuation and ventriculostomy on 09/01/16 Zyprexa continued Oxycodone continued Follow for fevers or hypothermia PT, OT, ST strong on the right hemibody, he has some movements on the left arm and Leg. Diplopia to continue intermittent Patch. Acute hypoxic and hypercarbic respiratory failure Aspiration Scheduled DuoNeb PRN Albuterol Enterobacter, Klebsiella in sputum, now Enterobacter is resistant to Rocephin. cefepime 2gm iv q8h started 09/15/16 completed for seven days, also had Tobramycin nebulized, for resistant Enterobacter Pulmonary Toilet and tracheostomy care Trach management per pulmonology, Cap trial per pulmonary yesterday night had cough and his tracheostomy tube was out on three opportunities. continue tracheostomy due to - aggessive suctioning - secretions management. continue Levsin Malignant Hypertension controlled Sinus tachycardia Continue Labetalol and hydralazine prn SBP <150. Continue Lopressor 5mg iv q4h prn for HR > 90. Continue Propranolol 20mg po q8h for tachycardia and agitation. Continue Norvasc 5 daily continue to adjust Elevated liver enzymes Improving through time Follow LFTs Urinary retention- - Neurogenic bladder - bladder scan -re place joy 10/08- f - appreciate Urology recommendation- joy removed today 10/10- bladder scan q 6 with intermittent catheterization if volume greater than 500 or if pateint feel distention - hopeful that function will return - flomax not indicated continue tf- dietary consult- to convert to bolus regimen - DVT Prophylaxis Lovenox, SCDs GI Prophylaxis Protonix Lines: PICC line No changes made to anterior assessment. Discussed with patient, his Continue TF Discharge Planning Will need prolonged Rehabilitation but first will need to be cleared by customer operations specialist. Jeb Melendez MD Oct 10, 2016 15:36
[2016-10-10] MEDS: HYOSCYAMINE SOLN 0.125 MG/ML 15 ML BTL PO PRN (16:30)
--- NOTE | 2016-10-10 19:11 | RADRPT ---
EXAM DATE/TIME: 10/10/2016 18:40 [facility] COMPARISON: CHEST SINGLE AP, October 04, 2016, 10:26. INDICATIONS : Possible aspiration. Vomiting. MEDICAL HISTORY : Stroke. Hypertension SURGICAL HISTORY : Trach. ENCOUNTER: Subsequent ACUITY: 1 month PAIN SCORE: Non-responsive. LOCATION: Bilateral chest FINDINGS: The tracheostomy tube and right PICC line are well placed. The heart size is within normal limits. Libby ngs are grossly clear. CONCLUSION: No acute disease. Al Nixon MD on October 10, 2016 at 19:07 Board Certified Radiologist. This report was verified electronically.
[2016-10-10 21:34] LABS: AUTOMATED NEUTROPHIL # 4.7 TH/MM3 (1.8-7.7); BASOPHIL # 0.1 TH/MM3 (0-0.2); BASOPHIL % 0.8 % (0.0-2.0); EOSINOPHIL # 0.3 TH/MM3 (0-0.4); EOSINOPHIL % 3.5 % (0.0-4.0); HEMATOCRIT 38.3 % (39.0-51.0); HEMO FLAGS DIFF FINAL; LYMPH % 31.5 % (9.0-44.0); LYMPHOCYTE # 2.9 TH/MM3 (1.0-4.8); MEAN CELL VOLUME 81.7 FL (80.0-100.0); MEAN CORPUSCULAR HEMOGLOBIN 27.6 PG (27.0-34.0); MEAN CORPUSCULAR HGB CONC 33.7 % (32.0-36.0); MONO % 12.8 % (0.0-8.0); NEUT % 51.4 % (16.0-70.0); PLATELET COUNT 306 TH/MM3 (150-450); RED BLOOD COUNT 4.68 MIL/MM3 (4.50-5.90); RED CELL DISTRIBUTION WIDTH 14.8 % (11.6-17.2); WHITE BLOOD COUNT 9.2 TH/MM3 (4.0-11.0)
[2016-10-10 22:00] LABS: ANION GAP 4 MEQ/L (5-15); AST (GOT) 167 U/L (15-37); BLOOD UREA NITROGEN 15 MG/DL (7-18); CHLORIDE 97 MEQ/L (98-107); GLOMERULAR FILTRATION RATE 95 ML/MIN (>89); POTASSIUM 4.2 MEQ/L (3.5-5.1); SODIUM (NA) 133 MEQ/L (136-145)
[2016-10-10 22:01] LABS: ALT (GPT) 264 U/L (12-78)
[2016-10-10 22:03] LABS: ALKALINE PHOSPHATASE 381 U/L (45-117); TOTAL BILIRUBIN ADULT 0.5 MG/DL (0.2-1.0)
[2016-10-11] VITALS (8 sets, daily range): BP systolic 104–137; BP diastolic 71–89; PULSE 90–100; RESP 11–19; TEMP 97.6–98.9; O2SAT 95–99
[2016-10-11] MEDS: HYOSCYAMINE SOLN 0.125 MG/ML 15 ML BTL PO PRN (00:23)
[2016-10-11] MEDS: guaiFENesin SOLUTION 200 MG/10 ML CUP PEG SCH ×2 (02:06→06:51)
[2016-10-11] MEDS: OLANZapine ODT 10 MG TAB PO SCH ×3 (03:56→20:15)
[2016-10-11] MEDS: oxyCODONE HCL ORAL CONC 20 MG/ML SYRINGE PO SCH ×6 (04:23→22:50)
[2016-10-11] MEDS: CHLORHEXIDINE GLUCONATE 2 % 1 PACK (2 CLOTHS) TOP SCH (04:23)
[2016-10-11] MEDS: DILTIAZEM HCL 30 MG TAB PO SCH ×4 (06:52→23:28)
[2016-10-11] MEDS: PROPRANOLOL HCL 20 MG TAB PO SCH ×3 (06:52→21:46)
[2016-10-11] MEDS: METOCLOPRAMIDE HCL SYRUP 10 MG/10 ML UDC PO SCH ×4 (06:52→21:45)
[2016-10-11] MEDS: CHLORHEXIDINE 0.12% (ORAL KIT) 15 ML CUP MT SCH ×2 (08:00→20:15)
[2016-10-11] MEDS: SODIUM CHLORIDE 0.9% FLUSH 10 ML FLUSH SCH ×2 (09:00→20:16)
[2016-10-11] MEDS: BISACODYL 10 MG SUPP RECTAL SCH (09:00)
--- NOTE | 2016-10-11 10:15 | HHI.PR ---
Subjective Remarks awake and alert, interactive, made sign that he wants to be washed d/w staff nurse- we will attemt to start tube feeding Objective Vitals Vital Signs Date Time Temp Pulse Resp B/P Pulse Ox O2 Delivery O2 Flow Rate FiO2 10/11/16 08:44 98 Trach Collar 5.00 21 10/11/16 07:42 13 10/11/16 07:00 97 Trach Collar 21 Humidified 10/11/16 04:00 95 10/11/16 04:00 98.2 95 13 122/78 99 10/11/16 00:00 92 10/11/16 00:00 98.9 92 11 121/75 97 10/10/16 20:00 101 10/10/16 20:00 99.2 101 10 128/89 100 10/10/16 19:22 97 Trach Collar 5.00 21 10/10/16 19:00 100 Trach Collar 21 Humidified 10/10/16 16:00 99.0 96 13 121/82 100 10/10/16 16:00 96 10/10/16 12:00 98.6 106 17 119/69 96 10/10/16 12:00 106 I/O 10/10/16 10/10/16 10/10/16 10/11/16 10/11/16 10/11/16 07:00 15:00 23:00 07:00 15:00 23:00 Intake Total 602 ml 658 ml 307 ml 240 ml Output Total 201 ml 750 ml 50 ml 250 ml Balance 401 ml -92 ml 257 ml -10 ml IV Total 0 ml 0 ml 60 ml 40 ml Tube Feeding 402 ml 358 ml 147 ml 0 ml Tube Irrigant 200 ml 300 ml 100 ml 200 ml Output Urine Total 200 ml 750 ml 0 ml 250 ml Stool Total 1 ml Emesis 50 ml Bladder Scan Volume Amount 193 ml 198 ml # Voids 0 0 # Bowel Movements 1 0 0 Result Diagram: 10/10/16205410/10/162054 Imaging Last 72 hours Impressions Chest X-Ray 10/10/16 0000 Signed Impressions: Service Date/Time: Monday, October 10, 2016 18:40 - CONCLUSION: No acute disease. Al Nixon MD Objective Remarks awake and alert, aphasic anicteric trac in place lungs- no wheezes, no rales, occasional rhonchi regular rhythm abdomen- PEG in place uncircumcised penis extremities no edema left sided hemiplegia Date of Insertion: Oct 08, 2016 Date of Removal: Oct 10, 2016 A/P Problem List: (1) Cerebellar hemorrhage, acute ICD Code: I61.4 Status: Acute (2) Left hemiparesis ICD Code: G81.94 Status: Acute (3) Malignant hypertension ICD Code: I10 Status: Acute (4) Acute respiratory failure ICD Code: J96.00 Status: Acute (5) HCAP (healthcare-associated pneumonia) ICD Code: J18.9 Status: Acute Assessment and Plan 40 year old male admitted with a right cerebellar ICH. Status post craniectomy 09/01. Continue suction as needed. Levsin has had benefit. Continue occupational therapy, speech therapy, and physical therapy. Patient has had some movement in the left leg and arm, per family. No respiratory distress today. Status Post Acute right cerebellar hemorrhage L hemiplegia Status post suboccipital craniectomy with cerebellar hemorrhage evacuation and ventriculostomy on 09/01/16 Zyprexa continued Oxycodone continued Follow for fevers or hypothermia PT, OT, ST strong on the right hemibody, he has some movements on the left arm and Leg. Diplopia to continue intermittent Patch. Acute hypoxic and hypercarbic respiratory failure Aspiration Scheduled DuoNeb PRN Albuterol Enterobacter, Klebsiella in sputum, now Enterobacter is resistant to Rocephin. cefepime 2gm iv q8h started 09/15/16 completed for seven days, also had Tobramycin nebulized, for resistant Enterobacter Pulmonary Toilet and tracheostomy care Trach management per pulmonology, Cap trial per pulmonary yesterday night had cough and his tracheostomy tube was out on three opportunities. continue tracheostomy due to - aggessive suctioning - secretions management. continue Levsin Malignant Hypertension controlled Sinus tachycardia Continue Labetalol and hydralazine prn SBP <150. Continue Lopressor 5mg iv q4h prn for HR > 90. Continue Propranolol 20mg po q8h for tachycardia and agitation. Continue Norvasc 5 daily continue to adjust Elevated liver enzymes Improving through time Follow LFTs Urinary retention- - Neurogenic bladder - bladder scan -re place joy 10/08-removed 10/10- intermittent catheterization per Urology recommendations - appreciate Urology recommendation- joy removed today 10/10- bladder scan q 6 with intermittent catheterization if volume greater than 500 or if pateint feel distention - hopeful that function will return - flomax not indicated continue tf- dietary consult- to convert to bolus regimen - DVT Prophylaxis Lovenox, SCDs GI Prophylaxis Protonix Lines: PICC line No changes made to anterior assessment. Discussed with patient, his Continue TF Discharge Planning Will need prolonged Rehabilitation but first will need to be cleared by deck specialist. Jeb Melendez MD Oct 11, 2016 10:15
[2016-10-11] MEDS: amLODIPine BESYLATE 5 MG TAB PO SCH (10:31)
[2016-10-11] MEDS: PANTOPRAZOLE SODIUM 40 MG VIAL IV SCH (10:31)
[2016-10-11] MEDS: SODIUM CHLORIDE 0.9% FLUSH 10 ML FLUSH IV FLUSH SCH (10:32)
[2016-10-11] MEDS: DOCUSATE SODIUM 50 MG/SENNA 8.6 MG TAB PO SCH ×2 (10:35→21:00)
[2016-10-11] MEDS: HYOSCYAMINE SOLN 0.125 MG/ML 15 ML BTL PO SCH ×4 (13:15→23:58)
[2016-10-11] MEDS: ENOXAPARIN SODIUM 40 MG/0.4 ML SYRINGE SQ SCH (13:16)
[2016-10-11] MEDS: ONDANSETRON HCL 4 MG/2 ML VIAL IV PUSH PRN (18:49)
[2016-10-11] MEDS ORDERED: ONDANSETRON HCL 4 MG/2 ML VIAL IV PUSH ONE (23:15)
[2016-10-12] VITALS (7 sets, daily range): BP systolic 108–121; BP diastolic 71–87; PULSE 93–99; RESP 12–17; TEMP 97.7–99.1; O2SAT 97–100
[2016-10-12] MEDS: oxyCODONE HCL ORAL CONC 20 MG/ML SYRINGE PO SCH ×6 (03:00→22:21)
[2016-10-12] MEDS: OLANZapine ODT 10 MG TAB PO SCH ×3 (04:00→20:16)
[2016-10-12] MEDS: CHLORHEXIDINE GLUCONATE 2 % 1 PACK (2 CLOTHS) TOP SCH (04:25)
[2016-10-12] MEDS: ONDANSETRON HCL 4 MG/2 ML VIAL IV PUSH PRN (05:23)
[2016-10-12] MEDS: HYOSCYAMINE SOLN 0.125 MG/ML 15 ML BTL PO SCH ×6 (05:23→23:42)
[2016-10-12] MEDS: METOCLOPRAMIDE HCL SYRUP 10 MG/10 ML UDC PO SCH ×4 (06:25→20:17)
[2016-10-12] MEDS: PROPRANOLOL HCL 20 MG TAB PO SCH ×3 (06:25→22:21)
[2016-10-12] MEDS: DILTIAZEM HCL 30 MG TAB PO SCH ×4 (06:25→23:38)
[2016-10-12] MEDS: CHLORHEXIDINE 0.12% (ORAL KIT) 15 ML CUP MT SCH ×2 (08:20→19:59)
[2016-10-12] MEDS: amLODIPine BESYLATE 5 MG TAB PO SCH (08:21)
[2016-10-12] MEDS: DOCUSATE SODIUM 50 MG/SENNA 8.6 MG TAB PO SCH ×2 (08:21→20:17)
[2016-10-12] MEDS: PANTOPRAZOLE SODIUM 40 MG VIAL IV SCH (08:21)
[2016-10-12] MEDS: BISACODYL 10 MG SUPP RECTAL SCH (08:22)
[2016-10-12] MEDS: SODIUM CHLORIDE 0.9% FLUSH 10 ML FLUSH IV FLUSH SCH (08:22)
[2016-10-12] MEDS: SODIUM CHLORIDE 0.9% FLUSH 10 ML FLUSH SCH ×2 (08:23→20:18)
--- NOTE | 2016-10-12 14:08 | HHI.PR ---
Subjective Remarks ASS NO DISTRESS TRACH OK FENESTRATED TRACH PLACED removed his trach this am replaced without any problems Objective Vital Signs Date Time Temp Pulse Resp B/P Pulse Ox O2 Delivery O2 Flow Rate FiO2 10/12/16 12:27 17 10/12/16 12:00 96 10/12/16 12:00 98.9 96 14 108/71 99 10/12/16 08:00 93 10/12/16 08:00 98.6 96 12 115/76 99 10/12/16 07:00 98 Trach Collar Humidified 10/12/16 04:00 98.7 93 17 109/73 100 10/12/16 04:00 93 10/12/16 00:00 99.1 98 16 121/87 97 10/12/16 00:00 98 10/11/16 22:15 96 Trach Collar 5.00 21 10/11/16 20:00 99 10/11/16 20:00 98.9 100 19 114/83 99 10/11/16 19:00 99 Trach Collar 21 Humidified 10/11/16 16:00 92 10/11/16 16:00 98.8 92 12 108/77 98 I/O 10/11/16 10/11/16 10/11/16 10/12/16 10/12/16 10/12/16 07:00 15:00 23:00 07:00 15:00 23:00 Intake Total 240 ml 160 ml 233 ml 100 ml Output Total 250 ml 300 ml 0 ml 0 ml Balance -10 ml -140 ml 233 ml 100 ml IV Total 40 ml 0 ml 40 ml 20 ml Tube Feeding 0 ml 40 ml 73 ml 0 ml Tube Irrigant 200 ml 120 ml 120 ml 80 ml Output Urine Total 250 ml 300 ml 0 ml 0 ml Bladder Scan Volume Amount 198 ml 214 ml 46 ml # Voids 0 1 # Bowel Movements 0 0 0 0 Result Diagram: 10/10/16205410/10/162054 Procedures Endotracheal Intubation Decompressive Craniectomy 09/02/16 PEG tube placement 09/16/16 Objective Remarks GENERAL: SKIN: Warm and dry. HEAD: Atraumatic. Normocephalic. EYES: Pupils equal and round. No scleral icterus. No injection or drainage. ENT: No nasal bleeding or discharge. Mucous membranes pink and moist. NECK: Tracheostomy in place CARDIOVASCULAR: Regular rate and rhythm. RESPIRATORY: No accessory muscle use. Clear to auscultation. Breath sounds equal bilaterally. GASTROINTESTINAL: Abdomen soft, non-tender, nondistended. Hepatic and splenic margins not palpable. MUSCULOSKELETAL: Extremities without clubbing, cyanosis, or edema. No obvious deformities. NEUROLOGICAL: Awake and alert. No obvious cranial nerve deficits. Motor grossly within normal limits. Five out of 5 muscle strength in the arms and legs. Normal speech. PSYCHIATRIC: Appropriate mood and affect; insight and judgment normal. Assessment and Plan Assessment and Plan ass respiratory failure IC bleed PLAN o2 as needed pulm. toilet REMOVE TRACHEOSTOMY WHEN POSSIBLE Reed Mcbride MD Oct 12, 2016 14:08
[2016-10-12] MEDS: ENOXAPARIN SODIUM 40 MG/0.4 ML SYRINGE SQ SCH (15:13)
--- NOTE | 2016-10-12 18:11 | HHI.PR ---
Subjective Remarks eyes opened, nod s and shakes hands attempts to talk intermittent catheterization being done- volume greater than 400=- staff states that they still have to press the bladder for urine to come out Objective Vitals Vital Signs Date Time Temp Pulse Resp B/P Pulse Ox O2 Delivery O2 Flow Rate FiO2 10/12/16 16:14 18 10/12/16 12:00 96 10/12/16 12:00 98.9 96 14 108/71 99 10/12/16 08:00 93 10/12/16 08:00 98.6 96 12 115/76 99 10/12/16 07:00 98 Trach Collar Humidified 10/12/16 04:00 98.7 93 17 109/73 100 10/12/16 04:00 93 10/12/16 00:00 99.1 98 16 121/87 97 10/12/16 00:00 98 10/11/16 22:15 96 Trach Collar 5.00 21 10/11/16 20:00 99 10/11/16 20:00 98.9 100 19 114/83 99 10/11/16 19:00 99 Trach Collar 21 Humidified I/O 10/11/16 10/11/16 10/11/16 10/12/16 10/12/16 10/12/16 07:00 15:00 23:00 07:00 15:00 23:00 Intake Total 240 ml 160 ml 233 ml 100 ml Output Total 250 ml 300 ml 0 ml 0 ml Balance -10 ml -140 ml 233 ml 100 ml IV Total 40 ml 0 ml 40 ml 20 ml Tube Feeding 0 ml 40 ml 73 ml 0 ml Tube Irrigant 200 ml 120 ml 120 ml 80 ml Output Urine Total 250 ml 300 ml 0 ml 0 ml Bladder Scan Volume Amount 198 ml 214 ml 46 ml # Voids 0 1 # Bowel Movements 0 0 0 0 Result Diagram: 10/10/16205410/10/162054 Imaging Last Impressions Chest X-Ray 10/10/16 0000 Signed Impressions: Service Date/Time: Monday, October 10, 2016 18:40 - CONCLUSION: No acute disease. Al Nixon MD Abdomen/Pelvis CT 10/03/16 0000 Signed Impressions: Service Date/Time: Monday, October 03, 2016 17:01 - CONCLUSION: 1. No definite acute abnormality is seen. 2. G-tube in good position. 3. 2 linear metallic densities seen at the distal descending colon and the rectum likely related to anchors from the G-tube. Al Nixon MD Hepatobiliary Scan Nuclear Medicine 09/20/16 0000 Signed Impressions: Service Date/Time: Tuesday, September 20, 2016 09:28 - CONCLUSION: Delayed filling of what appears to be a contracted gallbladder suggesting the possibility of gallbladder dysfunction but no acute cholecystitis or cystic/common bile duct obstruction. Al Wong MD Liver Ultrasound 09/18/16 0000 Signed Impressions: Service Date/Time: Sunday, September 18, 2016 08:42 - CONCLUSION: Minimal sludge in the gallbladder with gallbladder wall thickening. The patient does not appear to be tender over the gallbladder. Champ Pascal MD FACR Gastrostomy Tube Placement 09/16/16 Signed Impressions: Service Date/Time: Friday, September 16, 2016 11:10 - CONCLUSION: Uncomplicated gastrostomy tube placement as above. Shady Shelby MD Abdomen X-Ray 09/10/16 Signed Impressions: Service Date/Time: September 06:34 - CONCLUSION: Feeding tube tip in the stomach Al Hernandez MD Head CT 09/07/16 0600 Signed Impressions: Service Date/Time: Wednesday, September 07, 2016 06:05 - CONCLUSION: Stable brain appearance. Al Hernandez MD Neck CTA 09/01/162019 Signed Impressions: Service Date/Time: Thursday, September 01, 2016 20:55 - CONCLUSION: Unremarkable exam. The carotid arteries are intact. Ag Saxena MD Head CTA 09/01/162019 Signed Impressions: Service Date/Time: Thursday, September 01, 2016 20:55 - CONCLUSION: The etiology of the patient's right cerebellar h hemorrhage is not identified and there appears to be some infiltrates and possible pleural effusions in the upper lungs that are visualized. Erika Bob MD Objective Remarks awake and alert, aphasic anicteric trac in place lungs- no wheezes, no rales, regular rhythm abdomen- PEG in place uncircumcised penis extremities no edema left sided hemiplegia Date of Insertion: Oct 08, 2016 Date of Removal: Oct 10, 2016 A/P Problem List: (1) Cerebellar hemorrhage, acute ICD Code: I61.4 Status: Acute (2) Left hemiparesis ICD Code: G81.94 Status: Acute (3) Malignant hypertension ICD Code: I10 Status: Acute (4) Acute respiratory failure ICD Code: J96.00 Status: Acute (5) HCAP (healthcare-associated pneumonia) ICD Code: J18.9 Status: Acute Assessment and Plan 40 year old male admitted with a right cerebellar ICH. Status post craniectomy 09/01. Continue suction as needed. Levsin has had benefit. Continue occupational therapy, speech therapy, and physical therapy. Patient has had some movement in the left leg and arm, per family. No respiratory distress today. Status Post Acute right cerebellar hemorrhage L hemiplegia Status post suboccipital craniectomy with cerebellar hemorrhage evacuation and ventriculostomy on 09/01/16 Zyprexa continued Oxycodone continued Follow for fevers or hypothermia PT, OT, ST strong on the right hemibody, he has some movements on the left arm and Leg. Diplopia to continue intermittent Patch. Acute hypoxic and hypercarbic respiratory failure Aspiration Scheduled DuoNeb PRN Albuterol Enterobacter, Klebsiella in sputum, now Enterobacter is resistant to Rocephin. S/P cefepime 2gm iv q8h scompleted for seven days, also had Tobramycin nebulized , for resistant Enterobacter Pulmonary Toilet and tracheostomy care Trach management per pulmonology, Cap trial per pulmonary yesterday night had cough and his tracheostomy tube was out on three opportunities. continue tracheostomy due to - aggessive suctioning - secretions management. continue Levsin Malignant Hypertension controlled Sinus tachycardia Continue Labetalol and hydralazine prn SBP <150. Continue Lopressor 5mg iv q4h prn for HR > 90. Continue Propranolol 20mg po q8h for tachycardia and agitation. Continue Norvasc 5 daily continue to adjust Elevated liver enzymes Improving through time Follow LFTs Urinary retention- - Neurogenic bladder -re place joy 10/08-removed 10/10- intermittent catheterization per Urology recommendations - appreciate Urology recommendation- joy removed today 10/10- bladder scan q 6 with intermittent catheterization if volume greater than 500 or if pateint feel distention - hopeful that function will return - flomax not indicated per Urology -place condom catheter to get accurate output and still do intermittent - on d/w nurse- states they still have to press on the bladder for urine to come out even if catheter there - may like ly need indwellling- will continue intermittent catheterization and monitor continue tf- dietary consult- to convert to bolus regimen - DVT Prophylaxis Lovenox, SCDs GI Prophylaxis Protonix Lines: PICC line restart tube feedings d/w staff nurse Discharge Planning Will need prolonged Rehabilitation but first will need to be cleared by event marketing specialist. Jeb Melendez MD Oct 12, 2016 18:10 Jeb Melendez MD Oct 12, 2016 18:10
[2016-10-13] VITALS (13 sets, daily range): BP systolic 100–140; BP diastolic 58–82; PULSE 90–99; RESP 10–19; TEMP 97.6–98.8; O2SAT 97–100
[2016-10-13] MEDS: CHLORHEXIDINE GLUCONATE 2 % 1 PACK (2 CLOTHS) TOP SCH (03:35)
[2016-10-13] MEDS: oxyCODONE HCL ORAL CONC 20 MG/ML SYRINGE PO SCH ×7 (03:35→22:28)
[2016-10-13] MEDS: OLANZapine ODT 10 MG TAB PO SCH ×3 (03:35→20:23)
[2016-10-13] MEDS: HYOSCYAMINE SOLN 0.125 MG/ML 15 ML BTL PO SCH ×5 (03:36→20:24)
[2016-10-13 04:10] LABS: AUTOMATED NEUTROPHIL # 2.8 TH/MM3 (1.8-7.7); BASOPHIL # 0.1 TH/MM3 (0-0.2); BASOPHIL % 0.9 % (0.0-2.0); EOSINOPHIL # 0.4 TH/MM3 (0-0.4); EOSINOPHIL % 5.4 % (0.0-4.0); HEMATOCRIT 40.1 % (39.0-51.0); HEMO FLAGS DIFF FINAL; LYMPHOCYTE # 3.5 TH/MM3 (1.0-4.8); MEAN CELL VOLUME 80.2 FL (80.0-100.0); MEAN CORPUSCULAR HEMOGLOBIN 27.5 PG (27.0-34.0); MEAN CORPUSCULAR HGB CONC 34.4 % (32.0-36.0); NEUT % 35.7 % (16.0-70.0); PLATELET COUNT 327 TH/MM3 (150-450); RED CELL DISTRIBUTION WIDTH 14.7 % (11.6-17.2); WHITE BLOOD COUNT 7.9 TH/MM3 (4.0-11.0)
[2016-10-13 04:40] LABS: ANION GAP 10 MEQ/L (5-15); AST (GOT) 86 U/L (15-37); BICARBONATE 28.1 MEQ/L (21.0-32.0); BLOOD UREA NITROGEN 24 MG/DL (7-18); CHLORIDE 96 MEQ/L (98-107); GLOMERULAR FILTRATION RATE 64 ML/MIN (>89); POTASSIUM 3.8 MEQ/L (3.5-5.1); SODIUM (NA) 134 MEQ/L (136-145)
[2016-10-13 04:43] LABS: ALKALINE PHOSPHATASE 327 U/L (45-117); ALT (GPT) 169 U/L (12-78)
[2016-10-13] MEDS: ONDANSETRON HCL 4 MG/2 ML VIAL IV PUSH PRN (04:56)
[2016-10-13] MEDS: DILTIAZEM HCL 30 MG TAB PO SCH ×3 (06:38→17:32)
[2016-10-13] MEDS: METOCLOPRAMIDE HCL SYRUP 10 MG/10 ML UDC PO SCH ×4 (06:39→20:22)
[2016-10-13] MEDS: PROPRANOLOL HCL 20 MG TAB PO SCH ×3 (06:39→20:23)
[2016-10-13] MEDS: CHLORHEXIDINE 0.12% (ORAL KIT) 15 ML CUP MT SCH ×2 (08:23→20:23)
[2016-10-13] MEDS: SODIUM CHLORIDE 0.9% FLUSH 10 ML FLUSH SCH ×2 (08:24→20:25)
[2016-10-13] MEDS: PANTOPRAZOLE SODIUM 40 MG VIAL IV SCH (08:25)
[2016-10-13] MEDS: DOCUSATE SODIUM 50 MG/SENNA 8.6 MG TAB PO SCH ×2 (08:30→20:22)
[2016-10-13] MEDS: SODIUM CHLORIDE 0.9% FLUSH 10 ML FLUSH IV FLUSH SCH (08:30)
[2016-10-13] MEDS: amLODIPine BESYLATE 5 MG TAB PO SCH (08:30)
[2016-10-13] MEDS: BISACODYL 10 MG SUPP RECTAL SCH (08:31)
[2016-10-13] MEDS: SCOPOLAMINE 1.5 MG PATCH T-DERMAL SCH (11:14)
[2016-10-13] MEDS: REMOVE OLD SCOPOLAMINE PATCH T-DERMAL SCH (11:14)
--- NOTE | 2016-10-13 14:38 | HHI.PR ---
Subjective Remarks awake and alert, remains aphasic, ff commands gave me a high five had to be straight cath overnight 2x now minimal urine on joy- 50cc bladder scan- about 500cc will straight cath- will do joy tonigh if needed to be cath again Objective Vitals Vital Signs Date Time Temp Pulse Resp B/P Pulse Ox O2 Delivery O2 Flow Rate FiO2 10/13/16 12:13 17 10/13/16 12:00 98.8 93 12 101/66 100 10/13/16 12:00 93 10/13/16 10:00 99 Trach Collar 5.00 21 10/13/16 09:57 97.8 97 16 118/77 100 10/13/16 08:00 90 10/13/16 08:00 97.6 90 11 122/77 100 10/13/16 07:00 98 Trach Collar Humidified 10/13/16 06:00 98.7 93 13 117/76 99 10/13/16 05:00 98.7 96 10 118/75 100 10/13/16 04:00 98.7 96 10 114/71 100 10/13/16 04:00 96 10/13/16 00:00 94 10/13/16 00:00 98.7 94 13 100/58 97 10/12/16 22:29 100 Trach Collar 21 10/12/16 20:00 95 10/12/16 20:00 97.7 96 13 108/71 100 10/12/16 19:00 100 Trach Collar 21 Humidified 10/12/16 16:00 99 10/12/16 16:00 98.2 99 12 109/75 100 I/O 10/12/16 10/12/16 10/12/16 10/13/16 10/13/16 10/13/16 07:00 15:00 23:00 07:00 15:00 23:00 Intake Total 100 ml 100 ml 213 ml 687 ml Output Total 0 ml 350 ml 0 ml 350 ml 0 ml Balance 100 ml -250 ml 213 ml 337 ml 0 ml IV Total 20 ml 10 ml 30 ml Tube Feeding 0 ml 0 ml 53 ml 297 ml Tube Irrigant 80 ml 100 ml 150 ml 360 ml Output Urine Total 0 ml 350 ml 350 ml Tube Feeding Residual Discard 0 ml 0 ml 0 ml Bladder Scan Volume Amount 46 ml # Voids 1 0 # Bowel Movements 0 0 0 0 Result Diagram: 10/13/16 0334 10/13/16 0334 Imaging Last Impressions Chest X-Ray 10/10/16 0000 Signed Impressions: Service Date/Time: Monday, October 10, 2016 18:40 - CONCLUSION: No acute disease. Al Nixon MD Abdomen/Pelvis CT 10/03/16 0000 Signed Impressions: Service Date/Time: Monday, October 03, 2016 17:01 - CONCLUSION: 1. No definite acute abnormality is seen. 2. G-tube in good position. 3. 2 linear metallic densities seen at the distal descending colon and the rectum likely related to anchors from the G-tube. Al Nixon MD Hepatobiliary Scan Nuclear Medicine 09/20/16 0000 Signed Impressions: Service Date/Time: Tuesday, September 20, 2016 09:28 - CONCLUSION: Delayed filling of what appears to be a contracted gallbladder suggesting the possibility of gallbladder dysfunction but no acute cholecystitis or cystic/common bile duct obstruction. Al Wong MD Liver Ultrasound 09/18/16 0000 Signed Impressions: Service Date/Time: Sunday, September 18, 2016 08:42 - CONCLUSION: Minimal sludge in the gallbladder with gallbladder wall thickening. The patient does not appear to be tender over the gallbladder. Champ Pascal MD FACR Gastrostomy Tube Placement 09/16/16 0000 Signed Impressions: Service Date/Time: Friday, September 16, 2016 11:10 - CONCLUSION: Uncomplicated gastrostomy tube placement as above. Shady Shelby MD Abdomen X-Ray 09/10/16 0000 Signed Impressions: Service Date/Time: September 06:34 - CONCLUSION: Feeding tube tip in the stomach Al Hernandez MD Head CT 09/07/16 0600 Signed Impressions: Service Date/Time: Wednesday, September 07, 2016 06:05 - CONCLUSION: Stable brain appearance. Al Hernandez MD Neck CTA 09/01/162019 Signed Impressions: Service Date/Time: Thursday, September 01, 2016 20:55 - CONCLUSION: Unremarkable exam. The carotid arteries are intact. Ag Saxena MD Head CTA 09/01/162019 Signed Impressions: Service Date/Time: Thursday, September 01, 2016 20:55 - CONCLUSION: The etiology of the patient's right cerebellar h hemorrhage is not identified and there appears to be some infiltrates and possible pleural effusions in the upper lungs that are visualized. Erika Bob MD Objective Remarks awake and alert, aphasic anicteric trach in place lungs- no wheezes, no rales, regular rhythm abdomen- PEG in place uncircumcised penis extremities no edema left sided hemiplegia Date of Insertion: Oct 08, 2016 Date of Removal: Oct 10, 2016 A/P Problem List: (1) Cerebellar hemorrhage, acute ICD Code: I61.4 Status: Acute (2) Left hemiparesis ICD Code: G81.94 Status: Acute (3) Malignant hypertension ICD Code: I10 Status: Acute (4) Acute respiratory failure ICD Code: J96.00 Status: Acute (5) HCAP (healthcare-associated pneumonia) ICD Code: J18.9 Status: Acute Assessment and Plan 40 year old male admitted with a right cerebellar ICH. Status post craniectomy 09/01. Continue suction as needed. Levsin has had benefit. Continue occupational therapy, speech therapy, and physical therapy. Patient has had some movement in the left leg and arm, per family. No respiratory distress today. Status Post Acute right cerebellar hemorrhage L hemiplegia Status post suboccipital craniectomy with cerebellar hemorrhage evacuation and ventriculostomy on 09/01/16 Zyprexa continued Oxycodone continued PT, OT, ST Diplopia to continue intermittent Patch. Acute hypoxic and hypercarbic respiratory failure Aspiration Scheduled DuoNeb PRN Albuterol Enterobacter, Klebsiella in sputum, now Enterobacter is resistant to Rocephin. S/P cefepime 2gm iv q8h course Pulmonary Toilet and tracheostomy care Trach management per pulmonology, Cap trial per pulmonary yesterday night had cough and his tracheostomy tube was out on three opportunities. continue tracheostomy due to - aggessive suctioning - secretions management. continue Levsin Malignant Hypertension controlled Sinus tachycardia Continue Labetalol and hydralazine prn SBP <150. Continue Lopressor 5mg iv q4h prn for HR > 90. Continue Propranolol 20mg po q8h for tachycardia and agitation. Continue Norvasc 5 daily continue to adjust Elevated liver enzymes Improving through time Follow LFTs Urinary retention- - Neurogenic bladder -re place joy 10/08-removed 10/10- intermittent catheterization per Urology recommendations - appreciate Urology recommendation- joy removed today 10/10- bladder scan q 6 with intermittent catheterization if volume greater than 500 or if pateint feel distention - hopeful that function will return - flomax not indicated per Urology -place condom catheter to get accurate output and still do intermittent - on d/w nurse- states they still have to press on the bladder for urine to come out even if catheter there - may like ly need indwellling- will continue intermittent catheterization and monitor continue tf- dietary consult- to convert to bolus regimen - DVT Prophylaxis Lovenox, SCDs GI Prophylaxis Protonix Lines: PICC line restart tube feedings d/w staff nurse Discharge Planning Will need prolonged Rehabilitation but first will need to be cleared by customer relations specialist. Jeb Melendez MD Oct 13, 2016 14:38 Jeb Melendez MD Oct 13, 2016 14:38
[2016-10-13] MEDS: ENOXAPARIN SODIUM 40 MG/0.4 ML SYRINGE SQ SCH (14:58)
[2016-10-13] MEDS: HALOPERIDOL LACTATE 5 MG/ML AMP IV PUSH PRN (20:39)
[2016-10-14] VITALS (11 sets, daily range): BP systolic 95–121; BP diastolic 65–87; PULSE 90–121; RESP 11–14; TEMP 97.5–98.9; O2SAT 96–100
[2016-10-14] MEDS: DILTIAZEM HCL 30 MG TAB PO SCH ×4 (00:14→18:23)
[2016-10-14] MEDS: HYOSCYAMINE SOLN 0.125 MG/ML 15 ML BTL PO SCH ×6 (00:22→20:57)
[2016-10-14] MEDS: oxyCODONE HCL ORAL CONC 20 MG/ML SYRINGE PO SCH ×6 (03:00→22:38)
[2016-10-14] MEDS: CHLORHEXIDINE GLUCONATE 2 % 1 PACK (2 CLOTHS) TOP SCH (04:00)
[2016-10-14] MEDS: PROPRANOLOL HCL 20 MG TAB PO SCH ×3 (04:45→20:56)
[2016-10-14] MEDS: OLANZapine ODT 10 MG TAB PO SCH ×3 (04:45→20:56)
[2016-10-14] MEDS: METOCLOPRAMIDE HCL SYRUP 10 MG/10 ML UDC PO SCH ×4 (06:21→20:56)
[2016-10-14] MEDS: CHLORHEXIDINE 0.12% (ORAL KIT) 15 ML CUP MT SCH ×2 (08:00→20:59)
[2016-10-14] MEDS: PANTOPRAZOLE SODIUM 40 MG VIAL IV SCH (09:06)
[2016-10-14] MEDS: SODIUM CHLORIDE 0.9% FLUSH 10 ML FLUSH SCH ×2 (09:07→20:57)
[2016-10-14] MEDS: amLODIPine BESYLATE 5 MG TAB PO SCH (09:07)
[2016-10-14] MEDS: BISACODYL 10 MG SUPP RECTAL SCH (09:07)
[2016-10-14] MEDS: DOCUSATE SODIUM 50 MG/SENNA 8.6 MG TAB PO SCH ×2 (09:24→20:56)
--- NOTE | 2016-10-14 10:32 | HHI.PR ---
Subjective Remarks patient doing very well tolerating tube feedings very interactive still needs frequent suctioning straight cath regimen- about 300 cc out Objective Vitals Vital Signs Date Time Temp Pulse Resp B/P Pulse Ox O2 Delivery O2 Flow Rate FiO2 10/14/16 05:57 98.8 93 11 98/74 99 10/14/16 04:00 90 10/14/16 04:00 98.6 90 12 95/65 96 10/14/16 01:57 98.9 92 13 99/66 99 10/14/16 00:00 98.9 92 11 111/71 99 10/14/16 00:00 92 10/13/16 21:57 98.7 99 19 124/82 100 10/13/16 20:29 98 Trach Collar 21 10/13/16 20:00 98.7 96 14 122/78 99 10/13/16 20:00 96 10/13/16 19:15 100 Trach Collar Humidified 10/13/16 17:57 98.4 96 15 108/73 100 10/13/16 16:00 90 10/13/16 16:00 98.6 90 12 140/74 99 10/13/16 15:58 12 10/13/16 12:00 98.8 93 12 101/66 100 10/13/16 12:00 93 I/O 10/13/16 10/13/16 10/13/16 10/14/16 10/14/16 10/14/16 07:00 15:00 23:00 07:00 15:00 23:00 Intake Total 687 ml 522 ml 270 ml 268 ml Output Total 350 ml 0 ml 0 ml 325.0 ml Balance 337 ml 522 ml 270 ml -57.0 ml IV Total 30 ml 2 ml Tube Feeding 297 ml 272 ml 118 ml 118 ml Tube Irrigant 360 ml 250 ml 150 ml 150 ml Output Urine Total 350 ml 325 ml Tube Feeding Residual Discard 0 ml 0 ml 0 ml 0 ml # Bowel Movements 0 0 0 Result Diagram: 10/13/16 0334 10/13/16 0334 Imaging Last Impressions Chest X-Ray 10/10/16 0000 Signed Impressions: Service Date/Time: Monday, October 10, 2016 18:40 - CONCLUSION: No acute disease. Al Nixon MD Abdomen/Pelvis CT 10/03/16 0000 Signed Impressions: Service Date/Time: Monday, October 03, 2016 17:01 - CONCLUSION: 1. No definite acute abnormality is seen. 2. G-tube in good position. 3. 2 linear metallic densities seen at the distal descending colon and the rectum likely related to anchors from the G-tube. Al Nixon MD Hepatobiliary Scan Nuclear Medicine 09/20/16 0000 Signed Impressions: Service Date/Time: Tuesday, September 20, 2016 09:28 - CONCLUSION: Delayed filling of what appears to be a contracted gallbladder suggesting the possibility of gallbladder dysfunction but no acute cholecystitis or cystic/common bile duct obstruction. Al Wong MD Liver Ultrasound 09/18/16 Signed Impressions: Service Date/Time: Sunday, September 18, 2016 08:42 - CONCLUSION: Minimal sludge in the gallbladder with gallbladder wall thickening. The patient does not appear to be tender over the gallbladder. Champ Pascal MD FACR Gastrostomy Tube Placement 09/16/16 Signed Impressions: Service Date/Time: Friday, September 16, 2016 11:10 - CONCLUSION: Uncomplicated gastrostomy tube placement as above. Shady Shelby MD Abdomen X-Ray 09/10/16 Signed Impressions: Service Date/Time: September 06:34 - CONCLUSION: Feeding tube tip in the stomach Al Hernandez MD Head CT 09/07/16 0600 Signed Impressions: Service Date/Time: Wednesday, September 07, 2016 06:05 - CONCLUSION: Stable brain appearance. Al Hernandez MD Neck CTA 09/01/162019 Signed Impressions: Service Date/Time: Thursday, September 01, 2016 20:55 - CONCLUSION: Unremarkable exam. The carotid arteries are intact. Ag Saxena MD Head CTA 09/01/162019 Signed Impressions: Service Date/Time: Thursday, September 01, 2016 20:55 - CONCLUSION: The etiology of the patient's right cerebellar h hemorrhage is not identified and there appears to be some infiltrates and possible pleural effusions in the upper lungs that are visualized. Erika Bob MD Objective Remarks awake and alert, aphasic anicteric trach in place lungs- no wheezes, no rales, regular rhythm abdomen- PEG in place uncircumcised penis extremities no edema left sided hemiplegia Date of Insertion: Oct 08, 2016 Date of Removal: Oct 10, 2016 A/P Problem List: (1) Cerebellar hemorrhage, acute ICD Code: I61.4 Status: Acute (2) Left hemiparesis ICD Code: G81.94 Status: Acute (3) Malignant hypertension ICD Code: I10 Status: Acute (4) Acute respiratory failure ICD Code: J96.00 Status: Acute (5) HCAP (healthcare-associated pneumonia) ICD Code: J18.9 Status: Acute Assessment and Plan 40 year old male admitted with a right cerebellar ICH. Status post craniectomy 09/01. Continue suction as needed. Levsin has had benefit. Continue occupational therapy, speech therapy, and physical therapy. Patient has had some movement in the left leg and arm, per family. No respiratory distress today. Status Post Acute right cerebellar hemorrhage L hemiplegia Status post suboccipital craniectomy with cerebellar hemorrhage evacuation and ventriculostomy on 09/01/16 Zyprexa continued Oxycodone continued PT, OT, ST Diplopia to continue intermittent Patch. Acute hypoxic and hypercarbic respiratory failure S/P course treatment for Aspiration Pneumonia Scheduled DuoNeb PRN Albuterol S/P cefepime 2gm iv q8h also had Tobramycin nebulized, for resistant Enterobacter Pulmonary Toilet and tracheostomy care Trach management per pulmonology, Cap trial per pulmonary - aggessive suctioning - secretions management. continue Levsin Malignant Hypertension controlled Sinus tachycardia Continue Labetalol and hydralazine prn SBP <150. Continue Lopressor 5mg iv q4h prn for HR > 90. Continue Propranolol 20mg po q8h for tachycardia and agitation. Continue Norvasc 5 daily continue to adjust Elevated liver enzymes Improving Follow LFTs Urinary retention- - Neurogenic bladder -re place joy 10/08-removed 10/10- intermittent catheterization per Urology recommendations - appreciate Urology recommendation- joy removed today 10/10- bladder scan q 6 with intermittent catheterization if volume greater than 500 or if pateint feel distention - hopeful that function will return - flomax not indicated per Urology -place condom catheter to get accurate output and l do intermittent catheterization by Dr. Moon instructions and record - on d/w nurse 10/14 - states they still have to press on the bladder for urine to come out even if catheter there about 300-400 cc on straight - may likely need indwellling- will continue intermittent catheterization and monitor continue tf- dietary ff - DVT Prophylaxis Lovenox, SCDs GI Prophylaxis Protonix Lines: PICC line restart tube feedings d/w staff nurse Discharge Planning Will need prolonged Rehabilitation but first will need to be cleared by online communications specialist. Jeb Melendez MD Oct 14, 2016 10:32 Jeb Melendez MD Oct 14, 2016 10:32 Jeb Melendez MD Oct 14, 2016 10:32
[2016-10-14] MEDS: ONDANSETRON HCL 4 MG/2 ML VIAL IV PUSH PRN (10:50)
[2016-10-14] MEDS: ENOXAPARIN SODIUM 40 MG/0.4 ML SYRINGE SQ SCH (13:30)
--- NOTE | 2016-10-14 16:10 | HHI.PR ---
Subjective Remarks ASS NO DISTRESS TRACH OK FENESTRATED TRACH PLACED removed his trach this am replaced without any problems Objective Vital Signs Date Time Temp Pulse Resp B/P Pulse Ox O2 Delivery O2 Flow Rate FiO2 10/14/16 12:00 121 10/14/16 12:00 98.9 121 14 121/87 100 10/14/16 10:00 104 10/14/16 08:00 100 Trach Collar 28 Humidified 10/14/16 08:00 98.5 98 12 112/80 100 10/14/16 08:00 98 10/14/16 05:57 98.8 93 11 98/74 99 10/14/16 04:00 90 10/14/16 04:00 98.6 90 12 95/65 96 10/14/16 01:57 98.9 92 13 99/66 99 10/14/16 00:00 98.9 92 11 111/71 99 10/14/16 00:00 92 10/13/16 21:57 98.7 99 19 124/82 100 10/13/16 20:29 98 Trach Collar 21 10/13/16 20:00 98.7 96 14 122/78 99 10/13/16 20:00 96 10/13/16 19:15 100 Trach Collar Humidified 10/13/16 17:57 98.4 96 15 108/73 100 I/O 10/13/16 10/13/16 10/13/16 10/14/16 10/14/16 10/14/16 07:00 15:00 23:00 07:00 15:00 23:00 Intake Total 687 ml 522 ml 270 ml 268 ml Output Total 350 ml 0 ml 0 ml 325.0 ml 0 ml Balance 337 ml 522 ml 270 ml -57.0 ml 0 ml IV Total 30 ml 2 ml Tube Feeding 297 ml 272 ml 118 ml 118 ml Tube Irrigant 360 ml 250 ml 150 ml 150 ml Output Urine Total 350 ml 325 ml Tube Feeding Residual Discard 0 ml 0 ml 0 ml 0 ml 0 ml # Bowel Movements 0 0 0 Result Diagram: 10/13/16 0334 10/13/16 0334 Procedures Endotracheal Intubation Decompressive Craniectomy 09/02/16 PEG tube placement 09/16/16 Objective Remarks GENERAL: SKIN: Warm and dry. HEAD: Atraumatic. Normocephalic. EYES: Pupils equal and round. No scleral icterus. No injection or drainage. ENT: No nasal bleeding or discharge. Mucous membranes pink and moist. NECK: Tracheostomy in place CARDIOVASCULAR: Regular rate and rhythm. RESPIRATORY: No accessory muscle use. Clear to auscultation. Breath sounds equal bilaterally. GASTROINTESTINAL: Abdomen soft, non-tender, nondistended. Hepatic and splenic margins not palpable. MUSCULOSKELETAL: Extremities without clubbing, cyanosis, or edema. No obvious deformities. NEUROLOGICAL: Awake and alert. No obvious cranial nerve deficits. Motor grossly within normal limits. Five out of 5 muscle strength in the arms and legs. Normal speech. PSYCHIATRIC: Appropriate mood and affect; insight and judgment normal. Assessment and Plan Assessment and Plan ass respiratory failure IC bleed PLAN o2 as needed pulm. toilet REMOVE TRACHEOSTOMY WHEN POSSIBLE Reed Mcbride MD Oct 14, 2016 16:10
[2016-10-14] MEDS: HALOPERIDOL LACTATE 5 MG/ML AMP IV PUSH PRN (21:05)
[2016-10-15] VITALS (11 sets, daily range): BP systolic 102–121; BP diastolic 56–85; PULSE 90–122; RESP 9–21; TEMP 98–99.5; O2SAT 96–100
[2016-10-15] MEDS: HYOSCYAMINE SOLN 0.125 MG/ML 15 ML BTL PO SCH ×7 (00:30→23:29)
[2016-10-15] MEDS: DILTIAZEM HCL 30 MG TAB PO SCH ×5 (00:58→23:29)
[2016-10-15] MEDS: CHLORHEXIDINE GLUCONATE 2 % 1 PACK (2 CLOTHS) TOP SCH (03:24)
[2016-10-15] MEDS: oxyCODONE HCL ORAL CONC 20 MG/ML SYRINGE PO SCH ×6 (03:58→23:28)
[2016-10-15] MEDS: OLANZapine ODT 10 MG TAB PO SCH ×3 (03:59→21:30)
[2016-10-15] MEDS: PROPRANOLOL HCL 20 MG TAB PO SCH ×3 (05:36→21:30)
[2016-10-15] MEDS: METOCLOPRAMIDE HCL SYRUP 10 MG/10 ML UDC PO SCH ×4 (07:10→21:32)
[2016-10-15] MEDS: SODIUM CHLORIDE 0.9% FLUSH 10 ML FLUSH IV FLUSH SCH ×2 (08:43→09:00)
[2016-10-15] MEDS: amLODIPine BESYLATE 5 MG TAB PO SCH (08:45)
[2016-10-15] MEDS: BISACODYL 10 MG SUPP RECTAL SCH (08:45)
[2016-10-15] MEDS: DOCUSATE SODIUM 50 MG/SENNA 8.6 MG TAB PO SCH ×2 (08:45→21:00)
[2016-10-15] MEDS: CHLORHEXIDINE 0.12% (ORAL KIT) 15 ML CUP MT SCH ×2 (08:46→21:31)
[2016-10-15] MEDS: PANTOPRAZOLE SODIUM 40 MG VIAL IV SCH (08:49)
[2016-10-15] MEDS: SODIUM CHLORIDE 0.9% FLUSH 10 ML FLUSH SCH ×2 (09:00→21:31)
--- NOTE | 2016-10-15 10:42 | HHI.PR ---
Subjective Remarks sitting on the chair with no distress. denies pain. wide at the bedside. d/w the RN. Objective Vitals Vital Signs Date Time Temp Pulse Resp B/P Pulse Ox O2 Delivery O2 Flow Rate FiO2 10/15/16 09:08 96 Trach Collar 5.00 21 10/15/16 04:00 98.0 90 12 113/80 100 10/15/16 04:00 90 10/15/16 00:00 96 10/15/16 00:00 98.0 96 16 116/85 100 10/14/16 20:16 100 Trach Collar 21 10/14/16 20:00 97.5 99 13 115/80 100 10/14/16 20:00 99 10/14/16 19:00 100 Trach Collar Humidified 10/14/16 18:00 93 10/14/16 16:00 94 10/14/16 16:00 98.6 94 14 110/80 100 10/14/16 12:00 121 10/14/16 12:00 98.9 121 14 121/87 100 I/O 10/14/16 10/14/16 10/14/16 10/15/16 10/15/16 10/15/16 07:00 15:00 23:00 07:00 15:00 23:00 Intake Total 268 ml 261 ml 781 ml Output Total 325.0 ml 150 ml 0 ml 150 ml Balance -57.0 ml 111 ml 0 ml 631 ml Tube Feeding 118 ml 201 ml 181 ml Tube Irrigant 150 ml 60 ml 600 ml Output Urine Total 325 ml 150 ml 150 ml Tube Feeding Residual Discard 0 ml 0 ml 0 ml 0 ml # Bowel Movements 0 0 0 Result Diagram: 10/13/16 0334 10/13/16 0334 Imaging Last Impressions Chest X-Ray 10/10/16 0000 Signed Impressions: Service Date/Time: Monday, October 10, 2016 18:40 - CONCLUSION: No acute disease. Al Nixon MD Abdomen/Pelvis CT 10/03/16 0000 Signed Impressions: Service Date/Time: Monday, October 03, 2016 17:01 - CONCLUSION: 1. No definite acute abnormality is seen. 2. G-tube in good position. 3. 2 linear metallic densities seen at the distal descending colon and the rectum likely related to anchors from the G-tube. Al Nixon MD Hepatobiliary Scan Nuclear Medicine 09/20/16 0000 Signed Impressions: Service Date/Time: Tuesday, September 20, 2016 09:28 - CONCLUSION: Delayed filling of what appears to be a contracted gallbladder suggesting the possibility of gallbladder dysfunction but no acute cholecystitis or cystic/common bile duct obstruction. Al Wong MD Liver Ultrasound 09/18/16 Signed Impressions: Service Date/Time: Sunday, September 18, 2016 08:42 - CONCLUSION: Minimal sludge in the gallbladder with gallbladder wall thickening. The patient does not appear to be tender over the gallbladder. Champ Pascal MD FACR Gastrostomy Tube Placement 09/16/16 Signed Impressions: Service Date/Time: Friday, September 16, 2016 11:10 - CONCLUSION: Uncomplicated gastrostomy tube placement as above. Shady Shelby MD Abdomen X-Ray 09/10/16 Signed Impressions: Service Date/Time: September 06:34 - CONCLUSION: Feeding tube tip in the stomach Al Hernandez MD Head CT 09/07/16 0600 Signed Impressions: Service Date/Time: Wednesday, September 07, 2016 06:05 - CONCLUSION: Stable brain appearance. Al Hernandez MD Neck CTA 09/01/162019 Signed Impressions: Service Date/Time: Thursday, September 01, 2016 20:55 - CONCLUSION: Unremarkable exam. The carotid arteries are intact. Ag Saxena MD Head CTA 09/01/162019 Signed Impressions: Service Date/Time: Thursday, September 01, 2016 20:55 - CONCLUSION: The etiology of the patient's right cerebellar h hemorrhage is not identified and there appears to be some infiltrates and possible pleural effusions in the upper lungs that are visualized. Erika Bob MD Objective Remarks GENERAL: This is a well-nourished, well-developed patient, in no apparent distress. Neck; trach in place CARDIOVASCULAR: Regular rate and regular rhythm without murmurs, gallops, or rubs. RESPIRATORY: Clear to auscultation. Breath sounds equal bilaterally. No wheezes , rales, or rhonchi. GASTROINTESTINAL: Abdomen soft, non-tender, nondistended. Normal, active bowel sounds MUSCULOSKELETAL: Extremities without clubbing, cyanosis, or edema. NEURO: Alert & Oriented x4 to person, place, time, situation. Moves all ext x4 Medications and IVs Current Medications Propofol 100 ml @ 0 mls/hr TITRATE IV ; Start 09/01/16 at 19:45; Stop 09/02/16 at 00:31; Status DC Propofol (Diprivan 1000 Mg/100ml Inj) 100 ml @ As Directed STK-MED ONCE .ROUTE ; Start 09/01/16 at 19:39; Stop 09/01/16 at 19:40; Status DC Lorazepam 2 mg 2 mg STK-MED ONCE .ROUTE ; Start 09/01/16 at 19:40; Stop at 19:41; Status DC Levetriacetam 1000 mg/Sodium Chloride 110 ml @ 420 mls/hr BOLUS ONCE IV Last administered on 09/01/16 20:31; Start 09/01/16 at 20:15; Stop 09/01/16 at 20:30 ; Status DC Nicardipine HCl/ Sodium Chloride (Cardene Inj/NS 250 ml Inj) 260 ml @ 0 mls/hr TITRATE IV ; Start 09/01/16 at 20:15; Stop 09/01/16 at 21:34; Status DC Thrombin (Thrombin Top Soln) 10,000 units STK-MED ONCE .ROUTE Last administered on 09/01/16 21:55; Start 09/01/16 at 20:50; Stop 09/01/16 at 20:51 ; Status DC Bupivacaine HCl/ Epinephrine Bitart (Sensorcaine-Epinephrine Pf 0.5% Inj) 30 ml STK-MED ONCE .ROUTE Last administered on 09/01/16 21:55; Start 09/01/16 at 20: 50; Stop 09/01/16 at 20:51; Status DC Gelatin (Gelfoam 100 Top) 1 foam STK-MED ONCE .ROUTE Last administered on 21:55; Start 09/01/16 at 20:50; Stop 09/01/16 at 20:51; Status DC Gentamicin Sulfate 240 mg 240 mg STK-MED ONCE .ROUTE Last administered on 21:55; Start 09/01/16 at 20:50; Stop 09/01/16 at 20:51; Status DC Mannitol (Mannitol Inj) 50 ml @ As Directed STK-MED ONCE .ROUTE ; Start at 20:50; Stop 09/01/16 at 20:51; Status DC Cefazolin Sodium 1000 mg 1,000 mg STK-MED ONCE .ROUTE ; Start 09/01/16 at 20:51 ; Stop 09/01/16 at 20:52; Status DC Potassium Chloride/Sodium Chloride (NS + KCl 20 Meq Inj) 1,000 ml @ 84 mls/hr [id number] IV Last administered on 09/11/16 16:10; Start 09/01/16 at 20:52; Stop 09/12/16 at 09:26; Status DC Sodium Chloride (NS Flush) 2 ml UNSCH PRN .XX FLUSH AFTER USING IV ACCESS; Start 09/01/16 at 21:00 Sodium Chloride (NS Flush) 2 ml BID .XX Last administered on 10/14/16 20:57; Start 09/01/16 at 21:00 Acetaminophen (Tylenol) 650 mg Q6H PRN OG-TUBE PAIN 1-5 OR TEMP >100.4; Start 09/01/16 at 21:00; Stop 09/17/16 at 12:43; Status DC Fentanyl Citrate (fentaNYL INJ) 50 mcg Q1H PRN IV PUSH Pain scale 6-10 &/or sedation Last administered on 09/10/16 07:11; Start 09/01/16 at 21:00; Stop 09/14 at 11:06; Status DC Pantoprazole Sodium (Protonix Inj) 40 mg DAILY IV Last administered on 08:49; Start 09/02/16 at 09:00 Ondansetron HCl (Zofran Inj) 4 mg Q6H PRN IV NAUSEA OR VOMITING; Start at 21:00; Stop 09/02/16 at 01:00; Status DC Albuterol/ Ipratropium (Duoneb Neb) 1 ampule Q6HR NEB INH Last administered on 09/09/16 07:54; Start 09/01/16 at 22:00; Stop 09/09/16 at 12:17; Status DC Albuterol Sulfate (Albuterol Neb) 2.5 mg Q2HR NEB PRN INH SOB/WHEEZING Last administered on 10/04/16 22:21; Start 09/01/16 at 21:00 Miscellaneous Information 1 Q361D XX ; Start 09/01/16 at 21:00 Chlorhexidine Gluconate (Chlorhexidine 2% Cloth) Taper DAILY@04 TOP Last administered on 10/14/16 04:00; Start 09/02/16 at 04:00; Stop 08/29/17 at 03:59 Chlorhexidine Gluconate (Chlorhexidine 2% Cloth) 3 pack UNSCH PRN TOP HYGIENIC CARE; Start 09/01/16 at 21:00 Iohexol 80 ml 80 ml STK-MED ONCE IV Last administered on 09/01/16 21:04; Start 09/01/16 at 21:04; Stop 09/01/16 at 21:05; Status DC Levetriacetam 500 mg/Sodium Chloride 105 ml @ 420 mls/hr Q12HR IV Last administered on 09/18/16 11:06; Start 09/02/16 at 09:00; Stop 09/18/16 at 12:32; Status DC Nicardipine HCl 25 mg/Sodium Chloride 260 ml @ 0 mls/hr TITRATE IV Last administered on 09/13/16 13:35; Start 09/01/16 at 21:15; Stop 09/14/16 at 10:45; Status DC Potassium Chloride 100 ml @ 50 mls/hr Q2H PRN IV For Potassium 2.8 - 3.2 mEq/ L Last administered on 09/02/16 04:54; Start 09/01/16 at 21:15 Potassium Chloride (KCl 20 Meq Premix Inj) 100 ml @ 50 mls/hr Q2H PRN IV For Potassium 2.8 - 3.2 mEq/L; Start 09/01/16 at 21:15 Potassium Bicarb/ Potassium Chloride 50 meq 50 meq UNSCH PRN PO For Potassium 3.3 - 3.5 mEq/L; Start 09/01/16 at 21:15 Potassium Chloride 100 ml @ 25 mls/hr UNSCH PRN IV For Potassium 3.3 - 3.5 mEq /L Last administered on 09/23/16 12:30; Start 09/01/16 at 21:15 Potassium Chloride 100 ml @ 50 mls/hr Q2H PRN IV For Potassium 3.3 - 3.5 mEq/L ; Start 09/01/16 at 21:15 Magnesium Sulfate/ Sodium Chloride (Magnesium Sulfate Inj/NS Inj) 100 ml @ 50 mls/hr UNSCH PRN IV For Magnesium 0.9 - 1.1 mg/dL; Start 09/01/16 at 21:15 Magnesium Oxide 800 mg 800 mg UNSCH PRN PO For Magnesium 1.2 - 1.6 mg/dL; Start 09/01/16 at 21:15 Magnesium Sulfate/ Sodium Chloride (Magnesium Sulfate Inj/NS Inj) 100 ml @ 50 mls/hr UNSCH PRN IV For Magnesium 1.2 - 1.6 mg/dL Last administered on 08:18; Start 09/01/16 at 21:15 Potassium Phosphate 2000 mg 2,000 mg Q4H PRN PO For Phosphorus < 2.5 mg/dL; Start 09/01/16 at 21:15 Sodium Phosphate/ Sodium Chloride (Sodium Phosphate Inj/NS 250 ml Inj) 250 ml @ 42 mls/hr UNSCH PRN IV For Phosphorus < 2.5 mg/dL Last administered on 08:18; Start 09/01/16 at 21:15 Potassium Phosphate (K-Phos) 2,000 mg UNSCH PRN PO/TUBE SEE LABEL COMMENTS; Start 09/01/16 at 21:15 Dextrose (D50w (Vial) Inj) 50 ml UNSCH PRN IV HYPOGLYCEMIA-SEE COMMENTS; Start 09/01/16 at 21:15 Glucagon (Glucagon Inj) 1 mg UNSCH PRN OTHER HYPOGLYCEMIA-SEE COMMENTS; Start 09/01/16 at 21:15 Insulin Aspart (NovoLOG SUPPLEMENTAL SCALE) 1 Q6H SQ Last administered on 22:21; Start 09/01/16 at 22:00; Stop 09/14/16 at 12:36; Status DC Chlorhexidine Gluconate (Peridex 0.12% Liq) 15 ml BID@08,20 MT Last administered on 10/15/16 08:46; Start 09/02/16 at 08:00 Cefazolin Sodium (Ancef Inj) 2,000 mg STK-MED ONCE IV Last administered on 09/01 21:47; Start 09/01/16 at 21:47; Stop 09/01/16 at 22:31; Status DC Fentanyl Citrate 250 mcg 250 mcg STK-MED ONCE .ROUTE ; Start 09/01/16 at 22:49; Stop 09/01/16 at 22:50; Status DC Ampicillin Sodium/ Sulbactam Sodium 3 gm/Sodium Chloride 100 ml @ 200 mls/hr Q6HR IV Last administered on 09/07/16 16:57; Start 09/02/16 at 00:15; Stop at 23:59; Status DC Propofol (Diprivan 1000 Mg/100ml Inj) 100 ml @ 0 mls/hr TITRATE IV Last administered on 09/15/16 06:10; Start 09/02/16 at 00:30; Stop 09/22/16 at 11:13 ; Status DC Labetalol HCl (Trandate Inj) 10 mg Q4H PRN IV PUSH SBP >150 Last administered on 09/19/16 12:25; Start 09/02/16 at 00:45 Acetaminophen (Ofirmev Inj) 1,000 mg Q6H PRN IV temp >100.4 Last administered on 09/24/16 00:22; Start 09/02/16 at 01:00 Ondansetron HCl 4 mg 4 mg Q6HR PRN IV PUSH VOMITING Last administered on 10:50; Start 09/02/16 at 01:00 Sodium Chloride (Sodium Chloride 3% Inj) 500 ml @ 30 mls/hr CONTINUOUS IV Last administered on 09/06/16 23:51; Start 09/02/16 at 02:15; Stop 09/07/16 at 07:48; Status DC Metoclopramide HCl (Reglan Liq) 10 mg ACHS PO Last administered on 10/15/16 07 :10; Start 09/03/16 at 11:00 Bisacodyl (Dulcolax Supp) 10 mg DAILY RECTAL Last administered on 10/15/16 08: 45; Start 09/04/16 at 09:00 Polyethylene Glycol (Miralax) 17 gm BID PO Last administered on 09/13/16 08:02 ; Start 09/03/16 at 09:45; Stop 09/14/16 at 10:49; Status DC Senna/Docusate Sodium (Tania-Colace) 1 tab BID PO Last administered on 10/15/16 08:45; Start 09/03/16 at 09:45 Nicardipine HCl 25 mg 25 mg STK-MED ONCE .ROUTE ; Start 09/04/16 at 01:35; Stop 09/04/16 at 01:36; Status DC Sodium Chloride (NS 250 ml Inj) 250 ml @ As Directed STK-MED ONCE .ROUTE ; Start 09/04/16 at 01:36; Stop 09/04/16 at 01:37; Status DC Lidocaine HCl (Xylocaine 2% Inj) 100 mg STK-MED ONCE .ROUTE ; Start 09/04/16 at 04:31; Stop 09/04/16 at 04:32; Status DC Atropine Sulfate (Atropine Inj) 1 mg STK-MED ONCE .ROUTE ; Start 09/04/16 at 04: 31; Stop 09/04/16 at 04:32; Status DC Epinephrine HCl (EPINEPHrine (1:10,000) INJ) 1 mg STK-MED ONCE .ROUTE ; Start at 04:33; Stop 09/04/16 at 04:34; Status DC Oxycodone HCl (Roxicodone Intensol Liq) 5 mg Q4H PO Last administered on 04:12; Start 09/05/16 at 09:00; Stop 09/13/16 at 07:26; Status DC Metoprolol Tartrate (Lopressor Inj) 5 mg STK-MED ONCE .ROUTE ; Start 09/06/16 at 10:07; Stop 09/06/16 at 10:08; Status DC Metoprolol Tartrate (Lopressor Inj) 5 mg Q4H PRN IV PUSH HR > 90 or sbp > 160 Last administered on 09/24/16 15:35; Start 09/06/16 at 10:15 Chlorpromazine HCl (Thorazine Inj) 25 mg Q8H PRN IM hiccups Last administered on 09/12/16 04:48; Start 09/07/16 at 11:00; Stop 09/12/16 at 11:29; Status DC Propofol (Diprivan 200 Mg/20 ml Inj) 200 mg STK-MED ONCE IV ; Start 09/01/16 at 11:22; Stop 09/08/16 at 11:22; Status DC Ondansetron HCl 4 mg 4 mg STK-MED ONCE IV PUSH ; Start 09/01/16 at 11:22; Stop 09/08/16 at 11:22; Status DC Lactated Ringer's 2,000 ml @ As Directed STK-MED ONCE IV ; Start 09/01/16 at 11 :22; Stop 09/08/16 at 11:22; Status DC Sodium Chloride 500 ml @ As Directed STK-MED ONCE IV ; Start 09/01/16 at 11:22 ; Stop 09/08/16 at 11:22; Status DC Fentanyl Citrate (fentaNYL DRIP) 250 ml @ 0 mls/hr TITRATE IV Last administered on 09/13/16 18:19; Start 09/08/16 at 23:30; Stop 09/22/16 at 11:14 ; Status DC Succinylcholine Chloride (Quelicin Inj) 100 mg NOW ONCE IV PUSH ; Start at 04:20; Stop 09/10/16 at 04:33; Status DC Vecuronium [employer] (Norcuron 10 Mg Inj) 10 mg STK-MED ONCE .ROUTE Last administered on 09/10/16 07:09; Start 09/10/16 at 05:35; Stop 09/10/16 at 05:36; Status DC Vecuronium [employer] (Norcuron 10 Mg Inj) 10 mg STK-MED ONCE .ROUTE ; Start at 05:46; Stop 09/10/16 at 05:47; Status DC Lidocaine HCl (Xylocaine 1% Inj (50 ml)) 50 ml STK-MED ONCE .ROUTE ; Start at 05:48; Stop 09/10/16 at 05:49; Status DC Fentanyl Citrate (fentaNYL INJ) 100 mcg NOW ONCE IV PUSH ; Start 09/10/16 at 05: 30; Stop 09/10/16 at 07:12; Status DC Vecuronium [employer] 10 mg 10 mg NOW ONCE IV PUSH ; Start 09/10/16 at 05:30; Stop 09/10/16 at 07:12; Status DC Ceftriaxone Sodium 1000 mg/ Sodium Chloride 100 ml @ 200 mls/hr Q8H IV ; Start 09/10/16 at 09:30; Stop 09/10/16 at 10:05; Status DC Ceftriaxone Sodium/Sodium Chloride (Rocephin Inj/NS Inj) 100 ml @ 200 mls/hr Q12H IV Last administered on 09/14/16 23:10; Start 09/10/16 at 11:00; Stop at 09:36; Status DC Sodium Chloride (NS Flush) See Protocol DAILY IV FLUSH Last administered on 10/15 08:43; Start 09/11/16 at 09:00 Sodium Chloride (NS Flush) See Protocol UNSCH PRN IV FLUSH SEE PROTOCOL TABLE Last administered on 10/01/16 09:42; Start 09/10/16 at 14:45 Heparin Sodium (Porcine) (Heparin Central Flush) See Protocol DAILY IV FLUSH Last administered on 10/11/16 10:31; Start 09/11/16 at 09:00 Heparin Sodium (Porcine) (Heparin Central Flush) See Protocol UNSCH PRN IV FLUSH SEE PROTOCOL TABLE Last administered on 09/14/16 05:40; Start 09/10/16 at 14:45 Sodium Chloride (NS Flush) UNSCH PRN IV FLUSH SEE PROTOCOL TABLE; Start at 14:45 Lidocaine/ Epinephrine (Xylocaine-Epi 1%-1:100,000 Inj) 30 ml ONCE ONCE INFIL ; Start 09/11/16 at 10:45; Stop 09/11/16 at 10:46; Status DC Lidocaine HCl (Xylocaine 1% Inj) 10 ml ONCE ONCE INFIL ; Start 09/11/16 at 11:00 ; Stop 09/11/16 at 11:01; Status DC Epinephrine HCl (Adrenalin (1:1000) Inj) 0.1 mg ONCE ONCE OTHER ; Start at 11:00; Stop 09/11/16 at 11:01; Status DC Lidocaine/ Epinephrine (Xylocaine-Epi 2%-1:100,000 Inj) 30 ml STK-MED ONCE .ROUTE ; Start 09/11/16 at 11:04; Stop 09/11/16 at 11:05; Status DC Chlorpromazine HCl (Thorazine Inj) 25 mg Q4H PRN IM hiccups Last administered on 09/13/16 19:50; Start 09/12/16 at 09:30 Metoprolol Tartrate (Lopressor) 50 mg Q12HR PO Last administered on 09/14/16 20 :56; Start 09/13/16 at 09:15; Status Hold Amlodipine Besylate (Norvasc) 5 mg DAILY PO Last administered on 10/15/16 08:45 ; Start 09/13/16 at 09:15 Haloperidol Lactate (Haldol Inj) 5 mg Q4H PRN IV PUSH agitation Last administered on 10/14/16 21:05; Start 09/14/16 at 10:45 Olanzapine (ZyPREXA ZYDIS ODT) 10 mg Q8H PO Last administered on 10/15/16 03:59 ; Start 09/14/16 at 12:00 Hydromorphone HCl (Dilaudid Pf Inj) 0.5 mg Q4H PRN IV PUSH pain 8-10 or not taking po Last administered on 10/07/16 13:32; Start 09/14/16 at 10:45 Oxycodone HCl (Roxicodone Intensol Liq) 10 mg Q4H PO Last administered on 03:58; Start 09/14/16 at 11:00 Insulin Aspart (NovoLOG SUPPLEMENTAL SCALE) 1 Q6H SQ ; Start 09/14/16 at 18:00; Stop 09/19/16 at 10:26; Status DC Propranolol HCl 20 mg 20 mg Q8HR PO Last administered on 10/14/16 20:56; Start 09/15/16 at 06:23 Dexmedetomidine HCl 50 ml @ 0 mls/hr TITRATE IV ; Start 09/15/16 at 08:15; Status Cancel Dexmedetomidine HCl 200 mcg/ Sodium Chloride 52 ml @ 0 mls/hr TITRATE IV ; Start 09/15/16 at 09:15; Stop 09/15/16 at 09:37; Status DC Cefepime HCl 2000 mg/Sodium Chloride 100 ml @ 200 mls/hr Q8H IV Last administered on 09/24/16 01:52; Start 09/15/16 at 10:00; Stop 09/24/16 at 09:59 ; Status DC Dexmedetomidine HCl/Sodium Chloride (Precedex Inj/NS Inj) 100 ml @ 0 mls/hr TITRATE IV Last administered on 09/18/16 17:21; Start 09/15/16 at 09:45; Stop at 11:14; Status DC Propofol (Diprivan 200 Mg/20 ml Inj) 150 mg STK-MED ONCE IV PUSH ; Start at 12:44; Stop 09/15/16 at 13:09; Status DC Fentanyl Citrate (fentaNYL INJ) 100 mcg STK-MED ONCE .ROUTE Last administered on 09/16/16 10:49; Start 09/16/16 at 10:49; Stop 09/16/16 at 10:50; Status DC Midazolam HCl (Versed Inj) 2 mg STK-MED ONCE .ROUTE Last administered on 10:49; Start 09/16/16 at 10:49; Stop 09/16/16 at 10:50; Status DC Tobramycin Sulfate (Ramiro Neb) 300 mg Q12HR NEB NEB Last administered on 09:13; Start 09/16/16 at 20:00; Stop 09/30/16 at 19:59; Status DC Glucagon (Glucagon Inj) 1 mg STK-MED ONCE .ROUTE Last administered on 09/16/16 11:02; Start 09/16/16 at 11:02; Stop 09/16/16 at 11:03; Status DC Iohexol (Omnipaque 350 Inj) 15 ml STK-MED ONCE G-TUBE Last administered on 11:45; Start 09/16/16 at 11:45; Stop 09/16/16 at 11:46; Status DC Scopolamine (Transderm-Scop 1.5 Mg Patch.72 Hr) 1 patch Q3D T-DERMAL Last administered on 10/13/16 11:14; Start 09/19/16 at 12:00 Miscellaneous Information 1 1 Q3D T-DERMAL Last administered on 10/13/16 11:14 ; Start 09/22/16 at 12:00 Metronidazole (Flagyl 500 Mg Inj) 100 ml @ 100 mls/hr Q8H IV Last administered on 09/21/16 07:50; Start 09/19/16 at 15:00; Stop 09/21/16 at 14:24 ; Status DC Enoxaparin Sodium 40 mg 40 mg Q24H SQ Last administered on 10/14/16 13:30; Start 09/21/16 at 14:00 Sodium Chloride (NS 1000 ml Inj) 1,000 ml @ 100 mls/hr Q10H IV Last administered on 10/05/16 01:32; Start 09/24/16 at 15:00; Stop 10/05/16 at 12:20 ; Status DC Hyoscyamine Sulfate (Levsin Liq) 0.125 mg Q4H PRN PO Hypersecreations Last administered on 10/11/16 00:23; Start 09/25/16 at 12:30; Stop 10/11/16 at 10:04; Status DC Diltiazem HCl (Cardizem) 30 mg Q6HR PO Last administered on 10/15/16 06:00; Start 09/25/16 at 18:00 Lactulose (Lactulose Liq) 30 ml ONCE ONCE PEG Last administered on 10/01/16 17:15; Start 10/01/16 at 16:15; Stop 10/01/16 at 16:16; Status DC Diatrizoate Meglum/ Diatrizoate Sod ( Gastroview Liq) 18 ml ONCE ONCE PO Last administered on 10/03/16 14:56; Start 10/03/16 at 14:39; Stop 10/03/16 at 14:51; Status DC Iohexol (Omnipaque 350 Inj) 95 ml STK-MED ONCE IV Last administered on 17:06; Start 10/03/16 at 17:06; Stop 10/03/16 at 17:07; Status DC Guaifenesin (Mucinex Er) 600 mg BID PO ; Start 10/05/16 at 12:30; Status Cancel Lactulose (Lactulose Liq) 30 ml ONCE ONCE PEG Last administered on 10/05/16 14:10; Start 10/05/16 at 12:30; Stop 10/05/16 at 12:31; Status DC Guaifenesin (Robitussin Liq) 200 mg Q4H PEG Last administered on 10/11/16 06:51 ; Start 10/05/16 at 14:00; Stop 10/11/16 at 10:21; Status DC Tamsulosin HCl (Flomax) 0.4 mg DAILY PO ; Start 10/08/16 at 14:45; Stop 10/11/16 at 10:08; Status DC Hyoscyamine Sulfate (Levsin Liq) 0.125 mg Q4H PO Last administered on 08:50; Start 10/11/16 at 12:30 Ondansetron HCl (Zofran Inj) 4 mg ONCE ONCE IV PUSH Last administered on 7/2/ 17at 23:28; Start 10/11/16 at 23:15; Stop 10/11/16 at 23:19; Status DC Date of Insertion: Oct 08, 2016 Date of Removal: Oct 10, 2016 A/P Assessment and Plan Status Post Acute right cerebellar hemorrhage L hemiplegia Status post suboccipital craniectomy with cerebellar hemorrhage evacuation and ventriculostomy on 09/01/16 Zyprexa continued Oxycodone continued PT, OT, ST Diplopia to continue intermittent Patch. Acute hypoxic and hypercarbic respiratory failure S/P course treatment for Aspiration Pneumonia Scheduled DuoNeb PRN Albuterol S/P cefepime 2gm iv q8h also had Tobramycin nebulized, for resistant Enterobacter Pulmonary Toilet and tracheostomy care Trach management per pulmonology, Cap trial per pulmonary - aggressive suctioning - secretions management. continue Levsin Malignant Hypertension controlled Sinus tachycardia Continue Labetalol and hydralazine prn SBP <150. Continue Lopressor 5mg iv q4h prn for HR > 90. Continue Propranolol 20mg po q8h for tachycardia and agitation. Continue Norvasc 5 daily continue to adjust Elevated liver enzymes Improving Follow LFTs Urinary retention- - Neurogenic bladder -re place joy 10/08-removed 10/10- intermittent catheterization per Urology recommendations - appreciate Urology recommendation- joy removed 10/10- bladder scan q 6 with intermittent catheterization if volume greater than 500 or if patient feel distention - hopeful that function will return - flomax not indicated per Urology -place condom catheter to get accurate output / do intermittent catheterization by Dr. Moon instructions and record continue tube feeding- dietary ff DVT Prophylaxis Lovenox, SCDs GI Prophylaxis Protonix Lines: PICC line Discharge Planning dc planning in progress. Manisha Fraser MD Oct 15, 2016 10:42
[2016-10-15] MEDS: ONDANSETRON HCL 4 MG/2 ML VIAL IV PUSH PRN ×2 (11:06→22:03)
--- NOTE | 2016-10-15 11:42 | HHI.HCPN ---
Received call from Jaci. She is requesting letter as Mr. Isabel's daughter is currently attempting to travel from [place] to the to be with her father. Met with at patient's bedside. Letter provided, copy placed in chart. Mr. Isabel is currently sitting up in stretcher chair, nurse at bedside providing care. also present. Mr. Isabel appears comfortable. Jaci denies any questions/concerns at this time. She has palliative care contact information. Palliative care will continue to follow as needed throughout hospitalization. Valeria Maddox, [employer] Oct 15, 2016 11:42
[2016-10-15] MEDS: ENOXAPARIN SODIUM 40 MG/0.4 ML SYRINGE SQ SCH (14:28)
--- NOTE | 2016-10-15 15:22 | HHI.PR ---
Subjective Remarks ASS NO DISTRESS TRACH OK FENESTRATED TRACH PLACED Objective Vital Signs Date Time Temp Pulse Resp B/P Pulse Ox O2 Delivery O2 Flow Rate FiO2 10/15/16 09:08 96 Trach Collar 5.00 21 10/15/16 04:00 98.0 90 12 113/80 100 10/15/16 04:00 90 10/15/16 00:00 96 10/15/16 00:00 98.0 96 16 116/85 100 10/14/16 20:16 100 Trach Collar 21 10/14/16 20:00 97.5 99 13 115/80 100 10/14/16 20:00 99 10/14/16 19:00 100 Trach Collar Humidified 10/14/16 18:00 93 10/14/16 16:00 94 10/14/16 16:00 98.6 94 14 110/80 100 I/O 10/14/16 10/14/16 10/14/16 10/15/16 10/15/16 10/15/16 07:00 15:00 23:00 07:00 15:00 23:00 Intake Total 268 ml 261 ml 781 ml Output Total 325.0 ml 150 ml 0 ml 150 ml Balance -57.0 ml 111 ml 0 ml 631 ml Tube Feeding 118 ml 201 ml 181 ml Tube Irrigant 150 ml 60 ml 600 ml Output Urine Total 325 ml 150 ml 150 ml Tube Feeding Residual Discard 0 ml 0 ml 0 ml 0 ml # Bowel Movements 0 0 0 Result Diagram: 10/13/16 0334 10/13/16 0334 Procedures Endotracheal Intubation Decompressive Craniectomy 09/02/16 PEG tube placement 09/16/16 Objective Remarks GENERAL: SKIN: Warm and dry. HEAD: Atraumatic. Normocephalic. EYES: Pupils equal and round. No scleral icterus. No injection or drainage. ENT: No nasal bleeding or discharge. Mucous membranes pink and moist. NECK: Tracheostomy in place CARDIOVASCULAR: Regular rate and rhythm. RESPIRATORY: No accessory muscle use. Clear to auscultation. Breath sounds equal bilaterally. GASTROINTESTINAL: Abdomen soft, non-tender, nondistended. Hepatic and splenic margins not palpable. MUSCULOSKELETAL: Extremities without clubbing, cyanosis, or edema. No obvious deformities. NEUROLOGICAL: Awake and alert. No obvious cranial nerve deficits. Motor grossly within normal limits. Five out of 5 muscle strength in the arms and legs. Normal speech. PSYCHIATRIC: Appropriate mood and affect; insight and judgment normal. Assessment and Plan Assessment and Plan ass respiratory failure IC bleed PLAN o2 as needed pulm. toilet REMOVE TRACHEOSTOMY WHEN POSSIBLE Reed Mcbride MD Oct 15, 2016 15:22
[2016-10-16] VITALS: BP 106/68; PULSE 96; RESP 12; TEMP 99.1; O2SAT 99
[2016-10-16] MEDS: oxyCODONE HCL ORAL CONC 20 MG/ML SYRINGE PO SCH ×4 (03:34→15:00)
[2016-10-16] MEDS: OLANZapine ODT 10 MG TAB PO SCH ×2 (03:34→13:09)
[2016-10-16 04:00] VITALS: BP 104/75; PULSE 92; RESP 14; TEMP 99; O2SAT 97
[2016-10-16] MEDS: CHLORHEXIDINE GLUCONATE 2 % 1 PACK (2 CLOTHS) TOP SCH (04:00)
[2016-10-16] MEDS: HYOSCYAMINE SOLN 0.125 MG/ML 15 ML BTL PO SCH ×4 (04:29→15:58)
[2016-10-16] MEDS: METOCLOPRAMIDE HCL SYRUP 10 MG/10 ML UDC PO SCH ×3 (06:33→15:55)
[2016-10-16] MEDS: PROPRANOLOL HCL 20 MG TAB PO SCH ×2 (06:33→15:54)
[2016-10-16] MEDS: DILTIAZEM HCL 30 MG TAB PO SCH ×3 (06:33→17:05)
[2016-10-16 08:00] VITALS: BP 99/64; PULSE 89; PULSE 90; RESP 14; TEMP 98.5; O2SAT 98
[2016-10-16] MEDS: CHLORHEXIDINE 0.12% (ORAL KIT) 15 ML CUP MT SCH (08:56)
[2016-10-16] MEDS: SODIUM CHLORIDE 0.9% FLUSH 10 ML FLUSH IV FLUSH SCH (08:57)
[2016-10-16] MEDS: SODIUM CHLORIDE 0.9% FLUSH 10 ML FLUSH SCH (08:57)
[2016-10-16] MEDS: DOCUSATE SODIUM 50 MG/SENNA 8.6 MG TAB PO SCH (09:00)
[2016-10-16] MEDS: BISACODYL 10 MG SUPP RECTAL SCH (09:00)
[2016-10-16 09:09] VITALS: O2SAT 97
--- NOTE | 2016-10-16 10:59 | HHI.PR ---
Subjective Remarks resting comfortably with no acute distress. denies pain. no fever. no new complaints. Objective Vitals Vital Signs Date Time Temp Pulse Resp B/P Pulse Ox O2 Delivery O2 Flow Rate FiO2 10/16/16 04:00 99.0 92 14 104/75 97 10/16/16 04:00 92 10/16/16 00:00 99.1 96 12 106/68 99 10/16/16 00:00 96 10/15/16 22:30 15 10/15/16 20:28 100 Trach Collar 21 10/15/16 20:00 110 10/15/16 20:00 99.5 110 21 111/74 100 10/15/16 19:00 98 Trach Collar 29 Humidified 10/15/16 18:00 105 10/15/16 16:00 100 10/15/16 16:00 98.6 92 9 102/76 100 10/15/16 14:00 119 10/15/16 12:00 122 10/15/16 12:00 98.7 122 11 110/56 100 I/O 10/15/16 10/15/16 10/15/16 10/16/16 10/16/16 10/16/16 07:00 15:00 23:00 07:00 15:00 23:00 Intake Total 781 ml 480 ml 702 ml Output Total 150 ml 125 ml 0 ml 300 ml Balance 631 ml 355 ml 0 ml 402 ml Tube Feeding 181 ml 160 ml 242 ml Tube Irrigant 600 ml 320 ml 460 ml Output Urine Total 150 ml 125 ml 300 ml Tube Feeding Residual Discard 0 ml 0 ml 0 ml 0 ml # Bowel Movements 0 1 0 Result Diagram: 10/13/16 0334 10/13/16 0334 Imaging Last Impressions Chest X-Ray 10/10/16 0000 Signed Impressions: Service Date/Time: Monday, October 10, 2016 18:40 - CONCLUSION: No acute disease. Al Nixon MD Abdomen/Pelvis CT 10/03/16 0000 Signed Impressions: Service Date/Time: Monday, October 03, 2016 17:01 - CONCLUSION: 1. No definite acute abnormality is seen. 2. G-tube in good position. 3. 2 linear metallic densities seen at the distal descending colon and the rectum likely related to anchors from the G-tube. Al Nixon MD Hepatobiliary Scan Nuclear Medicine 09/20/16 Signed Impressions: Service Date/Time: Tuesday, September 20, 2016 09:28 - CONCLUSION: Delayed filling of what appears to be a contracted gallbladder suggesting the possibility of gallbladder dysfunction but no acute cholecystitis or cystic/common bile duct obstruction. Al Wong MD Liver Ultrasound 09/18/16 Signed Impressions: Service Date/Time: Sunday, September 18, 2016 08:42 - CONCLUSION: Minimal sludge in the gallbladder with gallbladder wall thickening. The patient does not appear to be tender over the gallbladder. Champ Pascal MD FACR Gastrostomy Tube Placement 09/16/16 Signed Impressions: Service Date/Time: Friday, September 16, 2016 11:10 - CONCLUSION: Uncomplicated gastrostomy tube placement as above. Shady Shelby MD Abdomen X-Ray 09/10/16 Signed Impressions: Service Date/Time: September 06:34 - CONCLUSION: Feeding tube tip in the stomach Al Hernandez MD Head CT 09/07/16 0600 Signed Impressions: Service Date/Time: Wednesday, September 07, 2016 06:05 - CONCLUSION: Stable brain appearance. Al Hernandez MD Neck CTA 09/01/162019 Signed Impressions: Service Date/Time: Thursday, September 01, 2016 20:55 - CONCLUSION: Unremarkable exam. The carotid arteries are intact. Ag Saxena MD Head CTA 09/01/162019 Signed Impressions: Service Date/Time: Thursday, September 01, 2016 20:55 - CONCLUSION: The etiology of the patient's right cerebellar h hemorrhage is not identified and there appears to be some infiltrates and possible pleural effusions in the upper lungs that are visualized. Erika Bob MD Objective Remarks GENERAL: This is a well-nourished, well-developed patient, in no apparent distress. Neck; trach in place CARDIOVASCULAR: Regular rate and regular rhythm without murmurs, gallops, or rubs. RESPIRATORY: Clear to auscultation. Breath sounds equal bilaterally. No wheezes , rales, or rhonchi. GASTROINTESTINAL: Abdomen soft, non-tender, nondistended. Normal, active bowel sounds MUSCULOSKELETAL: Extremities without clubbing, cyanosis, or edema. NEURO: Alert & Oriented x4 to person, place, time, situation. Moves all ext x4 Procedures Right suboccipital craniectomy with evacuation of cerebellar hemorrhage; right frontal bur hole ventriculostomy placement; microsurgical technique central line placement tracheostomy Medications and IVs Current Medications Propofol 100 ml @ 0 mls/hr TITRATE IV ; Start 09/01/16 at 19:45; Stop 09/02/16 at 00:31; Status DC Propofol (Diprivan 1000 Mg/100ml Inj) 100 ml @ As Directed STK-MED ONCE .ROUTE ; Start 09/01/16 at 19:39; Stop 09/01/16 at 19:40; Status DC Lorazepam 2 mg 2 mg STK-MED ONCE .ROUTE ; Start 09/01/16 at 19:40; Stop at 19:41; Status DC Levetriacetam 1000 mg/Sodium Chloride 110 ml @ 420 mls/hr BOLUS ONCE IV Last administered on 09/01/16 20:31; Start 09/01/16 at 20:15; Stop 09/01/16 at 20:30 ; Status DC Nicardipine HCl/ Sodium Chloride (Cardene Inj/NS 250 ml Inj) 260 ml @ 0 mls/hr TITRATE IV ; Start 09/01/16 at 20:15; Stop 09/01/16 at 21:34; Status DC Thrombin (Thrombin Top Soln) 10,000 units STK-MED ONCE .ROUTE Last administered on 09/01/16 21:55; Start 09/01/16 at 20:50; Stop 09/01/16 at 20:51 ; Status DC Bupivacaine HCl/ Epinephrine Bitart (Sensorcaine-Epinephrine Pf 0.5% Inj) 30 ml STK-MED ONCE .ROUTE Last administered on 09/01/16 21:55; Start 09/01/16 at 20: 50; Stop 09/01/16 at 20:51; Status DC Gelatin (Gelfoam 100 Top) 1 foam STK-MED ONCE .ROUTE Last administered on 21:55; Start 09/01/16 at 20:50; Stop 09/01/16 at 20:51; Status DC Gentamicin Sulfate 240 mg 240 mg STK-MED ONCE .ROUTE Last administered on 21:55; Start 09/01/16 at 20:50; Stop 09/01/16 at 20:51; Status DC Mannitol (Mannitol Inj) 50 ml @ As Directed STK-MED ONCE .ROUTE ; Start at 20:50; Stop 09/01/16 at 20:51; Status DC Cefazolin Sodium 1000 mg 1,000 mg STK-MED ONCE .ROUTE ; Start 09/01/16 at 20:51 ; Stop 09/01/16 at 20:52; Status DC Potassium Chloride/Sodium Chloride (NS + KCl 20 Meq Inj) 1,000 ml @ 84 mls/hr [id number] IV Last administered on 09/11/16 16:10; Start 09/01/16 at 20:52; Stop 09/12/16 at 09:26; Status DC Sodium Chloride (NS Flush) 2 ml UNSCH PRN .XX FLUSH AFTER USING IV ACCESS; Start 09/01/16 at 21:00 Sodium Chloride (NS Flush) 2 ml BID .XX Last administered on 10/16/16 08:57; Start 09/01/16 at 21:00 Acetaminophen (Tylenol) 650 mg Q6H PRN OG-TUBE PAIN 1-5 OR TEMP >100.4; Start 09/01/16 at 21:00; Stop 09/17/16 at 12:43; Status DC Fentanyl Citrate (fentaNYL INJ) 50 mcg Q1H PRN IV PUSH Pain scale 6-10 &/or sedation Last administered on 09/10/16 07:11; Start 09/01/16 at 21:00; Stop 09/14 at 11:06; Status DC Pantoprazole Sodium (Protonix Inj) 40 mg DAILY IV Last administered on 08:49; Start 09/02/16 at 09:00 Ondansetron HCl (Zofran Inj) 4 mg Q6H PRN IV NAUSEA OR VOMITING; Start at 21:00; Stop 09/02/16 at 01:00; Status DC Albuterol/ Ipratropium (Duoneb Neb) 1 ampule Q6HR NEB INH Last administered on 09/09/16 07:54; Start 09/01/16 at 22:00; Stop 09/09/16 at 12:17; Status DC Albuterol Sulfate (Albuterol Neb) 2.5 mg Q2HR NEB PRN INH SOB/WHEEZING Last administered on 10/04/16 22:21; Start 09/01/16 at 21:00 Miscellaneous Information 1 Q361D XX ; Start 09/01/16 at 21:00 Chlorhexidine Gluconate (Chlorhexidine 2% Cloth) Taper DAILY@04 TOP Last administered on 10/14/16 04:00; Start 09/02/16 at 04:00; Stop 08/29/17 at 03:59 Chlorhexidine Gluconate (Chlorhexidine 2% Cloth) 3 pack UNSCH PRN TOP HYGIENIC CARE; Start 09/01/16 at 21:00 Iohexol 80 ml 80 ml STK-MED ONCE IV Last administered on 09/01/16 21:04; Start 09/01/16 at 21:04; Stop 09/01/16 at 21:05; Status DC Levetriacetam 500 mg/Sodium Chloride 105 ml @ 420 mls/hr Q12HR IV Last administered on 09/18/16 11:06; Start 09/02/16 at 09:00; Stop 09/18/16 at 12:32; Status DC Nicardipine HCl 25 mg/Sodium Chloride 260 ml @ 0 mls/hr TITRATE IV Last administered on 09/13/16 13:35; Start 09/01/16 at 21:15; Stop 09/14/16 at 10:45; Status DC Potassium Chloride 100 ml @ 50 mls/hr Q2H PRN IV For Potassium 2.8 - 3.2 mEq/ L Last administered on 09/02/16 04:54; Start 09/01/16 at 21:15 Potassium Chloride (KCl 20 Meq Premix Inj) 100 ml @ 50 mls/hr Q2H PRN IV For Potassium 2.8 - 3.2 mEq/L; Start 09/01/16 at 21:15 Potassium Bicarb/ Potassium Chloride 50 meq 50 meq UNSCH PRN PO For Potassium 3.3 - 3.5 mEq/L; Start 09/01/16 at 21:15 Potassium Chloride 100 ml @ 25 mls/hr UNSCH PRN IV For Potassium 3.3 - 3.5 mEq /L Last administered on 09/23/16 12:30; Start 09/01/16 at 21:15 Potassium Chloride 100 ml @ 50 mls/hr Q2H PRN IV For Potassium 3.3 - 3.5 mEq/L ; Start 09/01/16 at 21:15 Magnesium Sulfate/ Sodium Chloride (Magnesium Sulfate Inj/NS Inj) 100 ml @ 50 mls/hr UNSCH PRN IV For Magnesium 0.9 - 1.1 mg/dL; Start 09/01/16 at 21:15 Magnesium Oxide 800 mg 800 mg UNSCH PRN PO For Magnesium 1.2 - 1.6 mg/dL; Start 09/01/16 at 21:15 Magnesium Sulfate/ Sodium Chloride (Magnesium Sulfate Inj/NS Inj) 100 ml @ 50 mls/hr UNSCH PRN IV For Magnesium 1.2 - 1.6 mg/dL Last administered on 08:18; Start 09/01/16 at 21:15 Potassium Phosphate 2000 mg 2,000 mg Q4H PRN PO For Phosphorus < 2.5 mg/dL; Start 09/01/16 at 21:15 Sodium Phosphate/ Sodium Chloride (Sodium Phosphate Inj/NS 250 ml Inj) 250 ml @ 42 mls/hr UNSCH PRN IV For Phosphorus < 2.5 mg/dL Last administered on 08:18; Start 09/01/16 at 21:15 Potassium Phosphate (K-Phos) 2,000 mg UNSCH PRN PO/TUBE SEE LABEL COMMENTS; Start 09/01/16 at 21:15 Dextrose (D50w (Vial) Inj) 50 ml UNSCH PRN IV HYPOGLYCEMIA-SEE COMMENTS; Start 09/01/16 at 21:15 Glucagon (Glucagon Inj) 1 mg UNSCH PRN OTHER HYPOGLYCEMIA-SEE COMMENTS; Start 09/01/16 at 21:15 Insulin Aspart (NovoLOG SUPPLEMENTAL SCALE) 1 Q6H SQ Last administered on 22:21; Start 09/01/16 at 22:00; Stop 09/14/16 at 12:36; Status DC Chlorhexidine Gluconate (Peridex 0.12% Liq) 15 ml BID@08,20 MT Last administered on 10/16/16 08:56; Start 09/02/16 at 08:00 Cefazolin Sodium (Ancef Inj) 2,000 mg STK-MED ONCE IV Last administered on 09/01 21:47; Start 09/01/16 at 21:47; Stop 09/01/16 at 22:31; Status DC Fentanyl Citrate 250 mcg 250 mcg STK-MED ONCE .ROUTE ; Start 09/01/16 at 22:49; Stop 09/01/16 at 22:50; Status DC Ampicillin Sodium/ Sulbactam Sodium 3 gm/Sodium Chloride 100 ml @ 200 mls/hr Q6HR IV Last administered on 09/07/16 16:57; Start 09/02/16 at 00:15; Stop at 23:59; Status DC Propofol (Diprivan 1000 Mg/100ml Inj) 100 ml @ 0 mls/hr TITRATE IV Last administered on 09/15/16 06:10; Start 09/02/16 at 00:30; Stop 09/22/16 at 11:13 ; Status DC Labetalol HCl (Trandate Inj) 10 mg Q4H PRN IV PUSH SBP >150 Last administered on 09/19/16 12:25; Start 09/02/16 at 00:45 Acetaminophen (Ofirmev Inj) 1,000 mg Q6H PRN IV temp >100.4 Last administered on 09/24/16 00:22; Start 09/02/16 at 01:00 Ondansetron HCl 4 mg 4 mg Q6HR PRN IV PUSH VOMITING Last administered on 22:03; Start 09/02/16 at 01:00 Sodium Chloride (Sodium Chloride 3% Inj) 500 ml @ 30 mls/hr CONTINUOUS IV Last administered on 09/06/16 23:51; Start 09/02/16 at 02:15; Stop 09/07/16 at 07:48; Status DC Metoclopramide HCl (Reglan Liq) 10 mg ACHS PO Last administered on 10/16/16 06 :33; Start 09/03/16 at 11:00 Bisacodyl (Dulcolax Supp) 10 mg DAILY RECTAL Last administered on 10/15/16 08: 45; Start 09/04/16 at 09:00 Polyethylene Glycol (Miralax) 17 gm BID PO Last administered on 09/13/16 08:02 ; Start 09/03/16 at 09:45; Stop 09/14/16 at 10:49; Status DC Senna/Docusate Sodium (Tania-Colace) 1 tab BID PO Last administered on 10/15/16 08:45; Start 09/03/16 at 09:45 Nicardipine HCl 25 mg 25 mg STK-MED ONCE .ROUTE ; Start 09/04/16 at 01:35; Stop 09/04/16 at 01:36; Status DC Sodium Chloride (NS 250 ml Inj) 250 ml @ As Directed STK-MED ONCE .ROUTE ; Start 09/04/16 at 01:36; Stop 09/04/16 at 01:37; Status DC Lidocaine HCl (Xylocaine 2% Inj) 100 mg STK-MED ONCE .ROUTE ; Start 09/04/16 at 04:31; Stop 09/04/16 at 04:32; Status DC Atropine Sulfate (Atropine Inj) 1 mg STK-MED ONCE .ROUTE ; Start 09/04/16 at 04: 31; Stop 09/04/16 at 04:32; Status DC Epinephrine HCl (EPINEPHrine (1:10,000) INJ) 1 mg STK-MED ONCE .ROUTE ; Start at 04:33; Stop 09/04/16 at 04:34; Status DC Oxycodone HCl (Roxicodone Intensol Liq) 5 mg Q4H PO Last administered on 04:12; Start 09/05/16 at 09:00; Stop 09/13/16 at 07:26; Status DC Metoprolol Tartrate (Lopressor Inj) 5 mg STK-MED ONCE .ROUTE ; Start 09/06/16 at 10:07; Stop 09/06/16 at 10:08; Status DC Metoprolol Tartrate (Lopressor Inj) 5 mg Q4H PRN IV PUSH HR > 90 or sbp > 160 Last administered on 09/24/16 15:35; Start 09/06/16 at 10:15 Chlorpromazine HCl (Thorazine Inj) 25 mg Q8H PRN IM hiccups Last administered on 09/12/16 04:48; Start 09/07/16 at 11:00; Stop 09/12/16 at 11:29; Status DC Propofol (Diprivan 200 Mg/20 ml Inj) 200 mg STK-MED ONCE IV ; Start 09/01/16 at 11:22; Stop 09/08/16 at 11:22; Status DC Ondansetron HCl 4 mg 4 mg STK-MED ONCE IV PUSH ; Start 09/01/16 at 11:22; Stop 09/08/16 at 11:22; Status DC Lactated Ringer's 2,000 ml @ As Directed STK-MED ONCE IV ; Start 09/01/16 at 11 :22; Stop 09/08/16 at 11:22; Status DC Sodium Chloride 500 ml @ As Directed STK-MED ONCE IV ; Start 09/01/16 at 11:22 ; Stop 09/08/16 at 11:22; Status DC Fentanyl Citrate (fentaNYL DRIP) 250 ml @ 0 mls/hr TITRATE IV Last administered on 09/13/16 18:19; Start 09/08/16 at 23:30; Stop 09/22/16 at 11:14 ; Status DC Succinylcholine Chloride (Quelicin Inj) 100 mg NOW ONCE IV PUSH ; Start at 04:20; Stop 09/10/16 at 04:33; Status DC Vecuronium [place]tz (Norcuron 10 Mg Inj) 10 mg STK-MED ONCE .ROUTE Last administered on 09/10/16 07:09; Start 09/10/16 at 05:35; Stop 09/10/16 at 05:36; Status DC Vecuronium [place]tz (Norcuron 10 Mg Inj) 10 mg STK-MED ONCE .ROUTE ; Start at 05:46; Stop 09/10/16 at 05:47; Status DC Lidocaine HCl (Xylocaine 1% Inj (50 ml)) 50 ml STK-MED ONCE .ROUTE ; Start at 05:48; Stop 09/10/16 at 05:49; Status DC Fentanyl Citrate (fentaNYL INJ) 100 mcg NOW ONCE IV PUSH ; Start 09/10/16 at 05: 30; Stop 09/10/16 at 07:12; Status DC Vecuronium [place] 10 mg 10 mg NOW ONCE IV PUSH ; Start 09/10/16 at 05:30; Stop 09/10/16 at 07:12; Status DC Ceftriaxone Sodium 1000 mg/ Sodium Chloride 100 ml @ 200 mls/hr Q8H IV ; Start 09/10/16 at 09:30; Stop 09/10/16 at 10:05; Status DC Ceftriaxone Sodium/Sodium Chloride (Rocephin Inj/NS Inj) 100 ml @ 200 mls/hr Q12H IV Last administered on 09/14/16 23:10; Start 09/10/16 at 11:00; Stop at 09:36; Status DC Sodium Chloride (NS Flush) See Protocol DAILY IV FLUSH Last administered on 10/15 08:43; Start 09/11/16 at 09:00 Sodium Chloride (NS Flush) See Protocol UNSCH PRN IV FLUSH SEE PROTOCOL TABLE Last administered on 10/01/16 09:42; Start 09/10/16 at 14:45 Heparin Sodium (Porcine) (Heparin Central Flush) See Protocol DAILY IV FLUSH Last administered on 10/11/16 10:31; Start 09/11/16 at 09:00 Heparin Sodium (Porcine) (Heparin Central Flush) See Protocol UNSCH PRN IV FLUSH SEE PROTOCOL TABLE Last administered on 09/14/16 05:40; Start 09/10/16 at 14:45 Sodium Chloride (NS Flush) UNSCH PRN IV FLUSH SEE PROTOCOL TABLE; Start at 14:45 Lidocaine/ Epinephrine (Xylocaine-Epi 1%-1:100,000 Inj) 30 ml ONCE ONCE INFIL ; Start 09/11/16 at 10:45; Stop 09/11/16 at 10:46; Status DC Lidocaine HCl (Xylocaine 1% Inj) 10 ml ONCE ONCE INFIL ; Start 09/11/16 at 11:00 ; Stop 09/11/16 at 11:01; Status DC Epinephrine HCl (Adrenalin (1:1000) Inj) 0.1 mg ONCE ONCE OTHER ; Start at 11:00; Stop 09/11/16 at 11:01; Status DC Lidocaine/ Epinephrine (Xylocaine-Epi 2%-1:100,000 Inj) 30 ml STK-MED ONCE .ROUTE ; Start 09/11/16 at 11:04; Stop 09/11/16 at 11:05; Status DC Chlorpromazine HCl (Thorazine Inj) 25 mg Q4H PRN IM hiccups Last administered on 09/13/16 19:50; Start 09/12/16 at 09:30 Metoprolol Tartrate (Lopressor) 50 mg Q12HR PO Last administered on 09/14/16 20 :56; Start 09/13/16 at 09:15; Status Hold Amlodipine Besylate (Norvasc) 5 mg DAILY PO Last administered on 10/15/16 08:45 ; Start 09/13/16 at 09:15 Haloperidol Lactate (Haldol Inj) 5 mg Q4H PRN IV PUSH agitation Last administered on 10/14/16 21:05; Start 09/14/16 at 10:45 Olanzapine (ZyPREXA ZYDIS ODT) 10 mg Q8H PO Last administered on 10/16/16 03:34 ; Start 09/14/16 at 12:00 Hydromorphone HCl (Dilaudid Pf Inj) 0.5 mg Q4H PRN IV PUSH pain 8-10 or not taking po Last administered on 10/07/16 13:32; Start 09/14/16 at 10:45 Oxycodone HCl (Roxicodone Intensol Liq) 10 mg Q4H PO Last administered on 06:34; Start 09/14/16 at 11:00 Insulin Aspart (NovoLOG SUPPLEMENTAL SCALE) 1 Q6H SQ ; Start 09/14/16 at 18:00; Stop 09/19/16 at 10:26; Status DC Propranolol HCl 20 mg 20 mg Q8HR PO Last administered on 10/16/16 06:33; Start 09/15/16 at 06:23 Dexmedetomidine HCl 50 ml @ 0 mls/hr TITRATE IV ; Start 09/15/16 at 08:15; Status Cancel Dexmedetomidine HCl 200 mcg/ Sodium Chloride 52 ml @ 0 mls/hr TITRATE IV ; Start 09/15/16 at 09:15; Stop 09/15/16 at 09:37; Status DC Cefepime HCl 2000 mg/Sodium Chloride 100 ml @ 200 mls/hr Q8H IV Last administered on 09/24/16 01:52; Start 09/15/16 at 10:00; Stop 09/24/16 at 09:59 ; Status DC Dexmedetomidine HCl/Sodium Chloride (Precedex Inj/NS Inj) 100 ml @ 0 mls/hr TITRATE IV Last administered on 09/18/16 17:21; Start 09/15/16 at 09:45; Stop at 11:14; Status DC Propofol (Diprivan 200 Mg/20 ml Inj) 150 mg STK-MED ONCE IV PUSH ; Start at 12:44; Stop 09/15/16 at 13:09; Status DC Fentanyl Citrate (fentaNYL INJ) 100 mcg STK-MED ONCE .ROUTE Last administered on 09/16/16 10:49; Start 09/16/16 at 10:49; Stop 09/16/16 at 10:50; Status DC Midazolam HCl (Versed Inj) 2 mg STK-MED ONCE .ROUTE Last administered on 10:49; Start 09/16/16 at 10:49; Stop 09/16/16 at 10:50; Status DC Tobramycin Sulfate (Ramiro Neb) 300 mg Q12HR NEB NEB Last administered on 09:13; Start 09/16/16 at 20:00; Stop 09/30/16 at 19:59; Status DC Glucagon (Glucagon Inj) 1 mg STK-MED ONCE .ROUTE Last administered on 09/16/16 11:02; Start 09/16/16 at 11:02; Stop 09/16/16 at 11:03; Status DC Iohexol (Omnipaque 350 Inj) 15 ml STK-MED ONCE G-TUBE Last administered on 11:45; Start 09/16/16 at 11:45; Stop 09/16/16 at 11:46; Status DC Scopolamine (Transderm-Scop 1.5 Mg Patch.72 Hr) 1 patch Q3D T-DERMAL Last administered on 10/13/16 11:14; Start 09/19/16 at 12:00 Miscellaneous Information 1 1 Q3D T-DERMAL Last administered on 10/13/16 11:14 ; Start 09/22/16 at 12:00 Metronidazole (Flagyl 500 Mg Inj) 100 ml @ 100 mls/hr Q8H IV Last administered on 09/21/16 07:50; Start 09/19/16 at 15:00; Stop 09/21/16 at 14:24 ; Status DC Enoxaparin Sodium 40 mg 40 mg Q24H SQ Last administered on 10/15/16 14:28; Start 09/21/16 at 14:00 Sodium Chloride (NS 1000 ml Inj) 1,000 ml @ 100 mls/hr Q10H IV Last administered on 10/05/16 01:32; Start 09/24/16 at 15:00; Stop 10/05/16 at 12:20 ; Status DC Hyoscyamine Sulfate (Levsin Liq) 0.125 mg Q4H PRN PO Hypersecreations Last administered on 10/11/16 00:23; Start 09/25/16 at 12:30; Stop 10/11/16 at 10:04; Status DC Diltiazem HCl (Cardizem) 30 mg Q6HR PO Last administered on 10/16/16 06:33; Start 09/25/16 at 18:00 Lactulose (Lactulose Liq) 30 ml ONCE ONCE PEG Last administered on 10/01/16 17:15; Start 10/01/16 at 16:15; Stop 10/01/16 at 16:16; Status DC Diatrizoate Meglum/ Diatrizoate Sod (Md Gastroview Liq) 18 ml ONCE ONCE PO Last administered on 10/03/16 14:56; Start 10/03/16 at 14:39; Stop 10/03/16 at 14:51; Status DC Iohexol (Omnipaque 350 Inj) 95 ml STK-MED ONCE IV Last administered on 17:06; Start 10/03/16 at 17:06; Stop 10/03/16 at 17:07; Status DC Guaifenesin (Mucinex Er) 600 mg BID PO ; Start 10/05/16 at 12:30; Status Cancel Lactulose (Lactulose Liq) 30 ml ONCE ONCE PEG Last administered on 10/05/16 14:10; Start 10/05/16 at 12:30; Stop 10/05/16 at 12:31; Status DC Guaifenesin (Robitussin Liq) 200 mg Q4H PEG Last administered on 10/11/16 06:51 ; Start 10/05/16 at 14:00; Stop 10/11/16 at 10:21; Status DC Tamsulosin HCl (Flomax) 0.4 mg DAILY PO ; Start 10/08/16 at 14:45; Stop 10/11/16 at 10:08; Status DC Hyoscyamine Sulfate (Levsin Liq) 0.125 mg Q4H PO Last administered on 08:56; Start 10/11/16 at 12:30 Ondansetron HCl (Zofran Inj) 4 mg ONCE ONCE IV PUSH Last administered on t 23:28; Start 10/11/16 at 23:15; Stop 10/11/16 at 23:19; Status DC Date of Insertion: Oct 08, 2016 Date of Removal: Oct 10, 2016 A/P Assessment and Plan Status Post Acute right cerebellar hemorrhage L hemiplegia Status post suboccipital craniectomy with cerebellar hemorrhage evacuation and ventriculostomy on 09/01/16 Zyprexa continued Oxycodone continued PT, OT, ST Diplopia to continue intermittent Patch. Acute hypoxic and hypercarbic respiratory failure S/P course treatment for Aspiration Pneumonia Scheduled DuoNeb PRN Albuterol S/P cefepime 2gm iv q8h also had Tobramycin nebulized, for resistant Enterobacter Pulmonary Toilet and tracheostomy care Trach management per pulmonology, Cap trial per pulmonary - aggressive suctioning - secretions management. continue Levsin Malignant Hypertension controlled Sinus tachycardia Continue Propranolol 20mg Continue Norvasc 5 daily continue to adjust Elevated liver enzymes Improving Urinary retention- - Neurogenic bladder -re place joy 10/08-removed 10/10- intermittent catheterization per Urology recommendations - appreciate Urology recommendation- joy removed 10/10- bladder scan q 6 with intermittent catheterization if volume greater than 500 or if patient feel distention - hopeful that function will return - flomax not indicated per Urology -place condom catheter to get accurate output / do intermittent catheterization by Dr. Moon instructions and record continue tube feeding- dietary ff DVT Prophylaxis Lovenox, SCDs GI Prophylaxis Protonix Discharge Planning d/w the case management today. likely dc to [facility] within the next 24 hrs. f/u; pcp and pulmonary. see med list. d/w the patient. time spent 35 min. Manisha Fraser MD Oct 16, 2016 10:59 DVT Prophylaxis Lovenox, SCDs GI Prophylaxis Protonix Lines: PICC line Discharge Planning dc planning in progress. Manisha Fraser MD Oct 16, 2016 10:59
[2016-10-16] MEDS: amLODIPine BESYLATE 5 MG TAB PO SCH (11:06)
[2016-10-16] MEDS: PANTOPRAZOLE SODIUM 40 MG VIAL IV SCH (11:06)
[2016-10-16] MEDS ORDERED: ENOX40P SQ (11:07)
[2016-10-16] MEDS ORDERED: HYOS0.1231 PO (11:07)
[2016-10-16] MEDS ORDERED: METO-309 PO (11:07)
[2016-10-16] MEDS ORDERED: PROT40TA PO (11:07)
[2016-10-16] MEDS ORDERED: DILT31TA PO (11:07)
[2016-10-16] MEDS ORDERED: OXYC1CON3 PO (11:07)
[2016-10-16] MEDS ORDERED: OLANZ10 PO (11:07)
[2016-10-16] MEDS ORDERED: ALBU0.08 INH (11:07)
[2016-10-16] MEDS ORDERED: AMLO5 PO (11:07)
--- NOTE | 2016-10-16 11:08 | HHI.DS ---
Discharge Summary Admission Date September 01, 2016 at 21:05 Discharge Date: Oct 16, 2016 Admitting Diagnosis Acute right cerebellar hemorrhage (1) Cerebellar hemorrhage, acute ICD Code: I61.4 Diagnosis: Principal (2) Left hemiparesis ICD Code: G81.94 Diagnosis: Principal (3) Malignant hypertension ICD Code: I10 Diagnosis: Principal (4) Acute respiratory failure ICD Code: J96.00 Diagnosis: Principal (5) HCAP (healthcare-associated pneumonia) ICD Code: J18.9 Diagnosis: Principal Procedures Right suboccipital craniectomy with evacuation of cerebellar hemorrhage; right frontal bur hole ventriculostomy placement; microsurgical technique central line placement tracheostomy Brief History - From Admission 40-year-old male with reportedly no significant past medical history who was at work today and was taking out the garbage when he developed "the worse headache of his life". He was screaming in pain and [facility] was called. Upon [facility] arrival his GCS was 13 but rapidly deteriorated to GCS 3. He vomited. He was intubated on the scene without any drugs. CT brain demonstrated a large right cerebellar hemorrhage (4.9 x 5.7 cm) with effacement of the fourth ventricle. He has a very poor neurologic exam with absence of pupillary, corneal, gag, cough, oculocephalic reflexes. Not overbreathing vent but did not formally test apnea. Dr. Ovalles discussed with and she is requesting operative management. He is being taken for emergent CT angiogram and then to OR for evacuation by Dr. Ovalles. CBC/BMP: 10/13/16 0334 10/13/16 0334 Imaging Last Impressions Chest X-Ray 10/10/16 0000 Signed Impressions: Service Date/Time: Monday, October 10, 2016 18:40 - CONCLUSION: No acute disease. Al Nixon MD Abdomen/Pelvis CT 10/03/16 0000 Signed Impressions: Service Date/Time: Monday, October 03, 2016 17:01 - CONCLUSION: 1. No definite acute abnormality is seen. 2. G-tube in good position. 3. 2 linear metallic densities seen at the distal descending colon and the rectum likely related to anchors from the G-tube. Al Nixon MD Hepatobiliary Scan Nuclear Medicine 09/20/16 0000 Signed Impressions: Service Date/Time: Tuesday, September 20, 2016 09:28 - CONCLUSION: Delayed filling of what appears to be a contracted gallbladder suggesting the possibility of gallbladder dysfunction but no acute cholecystitis or cystic/common bile duct obstruction. Al Wong MD Liver Ultrasound 09/18/16 0000 Signed Impressions: Service Date/Time: Sunday, September 18, 2016 08:42 - CONCLUSION: Minimal sludge in the gallbladder with gallbladder wall thickening. The patient does not appear to be tender over the gallbladder. Champ Pascal MD FACR Gastrostomy Tube Placement 09/16/16 0000 Signed Impressions: Service Date/Time: Friday, September 16, 2016 11:10 - CONCLUSION: Uncomplicated gastrostomy tube placement as above. Shady Shelby MD Abdomen X-Ray 09/10/16 0000 Signed Impressions: Service Date/Time: September 06:34 - CONCLUSION: Feeding tube tip in the stomach Al Hernandez MD Head CT 09/07/16 0600 Signed Impressions: Service Date/Time: Wednesday, September 07, 2016 06:05 - CONCLUSION: Stable brain appearance. Al Hernandez MD Neck CTA 09/01/162019 Signed Impressions: Service Date/Time: Thursday, September 01, 2016 20:55 - CONCLUSION: Unremarkable exam. The carotid arteries are intact. Ag Saxena MD Head CTA 09/01/162019 Signed Impressions: Service Date/Time: Thursday, September 01, 2016 20:55 - CONCLUSION: The etiology of the patient's right cerebellar h hemorrhage is not identified and there appears to be some infiltrates and possible pleural effusions in the upper lungs that are visualized. Erika Bob MD PE at Discharge GENERAL: This is a well-nourished, well-developed patient, in no apparent distress. Neck; trach in place CARDIOVASCULAR: Regular rate and regular rhythm without murmurs, gallops, or rubs. RESPIRATORY: Clear to auscultation. Breath sounds equal bilaterally. No wheezes , rales, or rhonchi. GASTROINTESTINAL: Abdomen soft, non-tender, nondistended. Normal, active bowel sounds MUSCULOSKELETAL: Extremities without clubbing, cyanosis, or edema. NEURO: Alert & Oriented x4 to person, place, time, situation. Moves all ext x4 Transfer Summary 40-year-old male with reportedly no significant past medical history who was at work today and was taking out the garbage when he developed "the worse headache of his life". He was screaming in pain and [facility] was called. Upon [facility] arrival his GCS was 13 but rapidly deteriorated to GCS 3. He vomited. He was intubated on the scene without any drugs. CT brain demonstrated a large right cerebellar hemorrhage (4.9 x 5.7 cm) with effacement of the fourth ventricle. He has a very poor neurologic exam with absence of pupillary, corneal, gag, cough, oculocephalic reflexes. Not overbreathing vent but did not formally test apnea. Dr. Ovalles discussed with and she is requesting operative management. He is being taken for emergent CT angiogram and then to OR for evacuation by Dr. Ovalles. Subjective: 09/02: s/p decompressive craniectomy overnight. per report, when he returned from the OR he apparently had a +gag. 09/03: vomiting on sedation vacation yesterday. Cardene off. icp's controlled: 9 this AM. still poor neurologic exam. 09/04: on goal TF. no additional vomiting. following commands RUE, RLE. tracking. EVD at 15 cmH2O. ICP controlled. 09/05: Weakly following commands. ICP slightly elevated at 16-17 today. sedation vacation patient gets agitated, tachycardic, hypertensive. sputum growing pansensitive enterobacter. 09/06: still weakly following commands. ICP high overnight for ~30 minutes, but then improved. EVD challenged to 20 cmH2O today. still tachycardic and hypertensive. 09/07: still follows. ICP better controlled. EVD at [address] stable. 09/08: Delayed follow. Agitated when sedation lowered. Vomited early; will place NG to suction. Reglan already on board. We'd like to get to trial extubation for 's sake. Failed SBT today - will try again at higher PS. 09/09 no evidence overnight, no more vomiting, discussed with for tracheostomy placement 09/10: Tracheostomy this morning, CXR fine. DHT in good position, advance 10 cm. 09/11: Comfortable with trach; site clean. Talked with parents at bedside. 09/12: Breathes spontaneously with good excursions. 09/13: Tolerated SBT for several hours yesterday but became agitated and ineffective. Continue weaning efforts. 09/14: Still very agitated with sedation vacation. failed SBT for agitation, tachycardia, distress. 09/15: Agitation slightly better today with addition of Precedex. plan for PEG tube today. sputum growing now resistant enterobacter, and secretions are more tenacious today. 09/16: s/p PEG placement today. Following on R upper and lower ext. Continue to have large amount of secretions 09/17: Clinically better less agitated on Precedex follows commands on right side. Still has large amount of secretions, white count improving after starting cefepime. We'll attempt T piece yesterday. Liver enzymes elevated. Check ultrasound of the liver and gallbladder 09/18: No acute events overnight. Gallbladder ultrasound with minimal sludge and some gallbladder wall thickening. Negative radiographic Villegas sign. Remains on Precedex, follows commands on right upper and lower extremity. Failed CPAP yesterday 09/19 doing well on CPAP, we'll continue CPAP overnight if tolerated 09/20 slightly elevated LFTs, nuclear medicine for HIDA scan per ID recommendation 09/21 HIDA does not show evidence of acute cholecystitis. Neuro improving, follows commands and normal strength on right, weakly follows on LUE. Tolerating TP. 09/22: Improving clinically, BP adequately controlled. sat up side of bed with assistance. Getting PT Hospital Course Status Post Acute right cerebellar hemorrhage L hemiplegia Status post suboccipital craniectomy with cerebellar hemorrhage evacuation and ventriculostomy on 09/01/16 Zyprexa continued Oxycodone continued PT, OT, ST Diplopia to continue intermittent Patch. Acute hypoxic and hypercarbic respiratory failure S/P course treatment for Aspiration Pneumonia Scheduled DuoNeb PRN Albuterol S/P cefepime 2gm iv q8h also had Tobramycin nebulized, for resistant Enterobacter Pulmonary Toilet and tracheostomy care Trach management per pulmonology, Cap trial per pulmonary - aggressive suctioning - secretions management. continue Levsin Malignant Hypertension controlled Sinus tachycardia Continue Propranolol 20mg Continue Norvasc 5 daily continue to adjust Elevated liver enzymes Improving Urinary retention- - Neurogenic bladder -re place joy 10/08-removed 10/10- intermittent catheterization per Urology recommendations - appreciate Urology recommendation- joy removed 10/10- bladder scan q 6 with intermittent catheterization if volume greater than 500 or if patient feel distention - hopeful that function will return - flomax not indicated per Urology -place condom catheter to get accurate output / do intermittent catheterization by Dr. Moon instructions and record continue tube feeding- dietary ff DVT Prophylaxis Lovenox, SCDs GI Prophylaxis Protonix Pt Condition on Discharge: Stable Discharge Disposition: Trnsfr to Other Facility Discharge Time: > 30 minutes Discharge Instructions DIET: Follow Instructions for: On Tube Feeding Activities you can perform: Regular-No Restrictions Follow up Referrals: PCP Follow-up Pulmonology New Medications: Pantoprazole (Protonix) 40 Mg Tab 40 MG PO DAILY Reflux #30 Ref 0 TAB Albuterol Neb (Albuterol Neb) 2.5 Mg/3 Ml Neb 2.5 MG INH Q2HR NEB PRN SOB/WHEEZING Days 14 Ref 0 NEBULE Amlodipine (Norvasc) 5 Mg Tab 5 MG PO DAILY hypertension Days 30 Ref 0 TAB Bisacodyl Supp (Bisac-Evac Supp) 10 Mg Supp 10 MG RECTAL DAILY Constipation #10 Ref 0 SUPP Diltiazem (Cardizem) 30 Mg Tab 30 MG PO Q6HR hypertension Days 30 Ref 0 TAB Enoxaparin Inj (Lovenox Inj) 40 Mg/0.4 Ml Syr 40 MG SQ Q24H dvt prophylaxis Days 30 Ref 0 INJECTION Hyoscyamine Liq Drops (Hyosyne Liq Drops) 0.125 Mg/Ml Soln 0.125 MG PO Q4H secretion Days 5 Ref 0 BOTTLE Metoprolol Tartrate (Lopressor) 50 Mg Tab 50 MG PO Q12HR hypertension Days 30 Ref 0 TAB Olanzapine Odt (Zyprexa Zydis) 10 Mg Tab 10 MG PO Q8H agitation Days 5 Ref 0 TAB Oxycodone Liq (Oxycodone Liq) 20 Mg/Ml Conc 10 MG PO Q4H Pain Management #15 Ref 0 ML Scopolamine (Transderm-Scop) 1 Mg/3 Days Dis 1 PATCH T-DERMAL Q3D anticholinergic #2 PATCH ([Metoclopramide Liq]) 10 MG/10 ML SYRP 10 MG PO ACHS antiemetics #20 Ref 0 ML Manisha Fraser MD Oct 16, 2016 11:08
--- NOTE | 2016-10-16 11:08 | HHI.DCPOC ---
Discharge Care Plan Diagnosis: (1) Cerebellar hemorrhage, acute Your Health Problems Are: Difficulty with ADL Goals to Promote Your Health * To prevent worsening of your condition and complications * To maintain your health at the optimal level Directions to Meet Your Goals Take your medications as prescribed Follow your dietary instruction Follow activity as directed Keep your appointments as scheduled Take your immunizations and boosters as scheduled If your symptoms worsen call your PCP, if no PCP go to Urgent Care Center or Emergency Room Smoking is Dangerous to Your Health. Avoid second hand smoke Call the 24-hour hour crisis hotline for domestic abuse at Manisha Fraser MD Oct 16, 2016 11:08
[2016-10-16] MEDS ORDERED: Metoclopramide Liq PO (11:11)
[2016-10-16] MEDS ORDERED: BISA10R RECTAL (11:11)
[2016-10-16] MEDS ORDERED: SCOP1PAT2 T-DERMAL (11:21)
[2016-10-16 12:00] VITALS: BP 111/83; PULSE 104; RESP 17; TEMP 98.9; O2SAT 98
[2016-10-16] MEDS: ONDANSETRON HCL 4 MG/2 ML VIAL IV PUSH PRN (13:06)
[2016-10-16] MEDS: REMOVE OLD SCOPOLAMINE PATCH T-DERMAL SCH (13:08)
[2016-10-16] MEDS: SCOPOLAMINE 1.5 MG PATCH T-DERMAL SCH (13:08)
--- NOTE | 2016-10-16 15:14 | HHI.PR ---
Subjective Remarks ASS NO DISTRESS TRACH OK FENESTRATED TRACH PLACED Objective Vital Signs Date Time Temp Pulse Resp B/P Pulse Ox O2 Delivery O2 Flow Rate FiO2 10/16/16 12:00 98.9 104 17 111/83 98 10/16/16 12:00 104 10/16/16 09:09 97 Trach Collar 5.00 21 10/16/16 08:00 90 10/16/16 08:00 98.5 90 14 99/64 98 10/16/16 07:00 98 Trach Collar 29 Humidified 10/16/16 04:00 99.0 92 14 104/75 97 10/16/16 04:00 92 10/16/16 00:00 99.1 96 12 106/68 99 10/16/16 00:00 96 10/15/16 22:30 15 10/15/16 20:28 100 Trach Collar 21 10/15/16 20:00 110 10/15/16 20:00 99.5 110 21 111/74 100 10/15/16 19:00 98 Trach Collar 29 Humidified 10/15/16 18:00 105 10/15/16 16:00 100 10/15/16 16:00 98.6 92 9 102/76 100 I/O 10/15/16 10/15/16 10/15/16 10/16/16 10/16/16 10/16/16 07:00 15:00 23:00 07:00 15:00 23:00 Intake Total 781 ml 480 ml 702 ml Output Total 150 ml 125 ml 0 ml 300 ml Balance 631 ml 355 ml 0 ml 402 ml Tube Feeding 181 ml 160 ml 242 ml Tube Irrigant 600 ml 320 ml 460 ml Output Urine Total 150 ml 125 ml 300 ml Tube Feeding Residual Discard 0 ml 0 ml 0 ml 0 ml # Bowel Movements 0 1 0 Result Diagram: 10/13/16 0334 10/13/16 0334 Procedures Endotracheal Intubation Decompressive Craniectomy 09/02/16 PEG tube placement 09/16/16 Objective Remarks GENERAL: SKIN: Warm and dry. HEAD: Atraumatic. Normocephalic. EYES: Pupils equal and round. No scleral icterus. No injection or drainage. ENT: No nasal bleeding or discharge. Mucous membranes pink and moist. NECK: Tracheostomy in place CARDIOVASCULAR: Regular rate and rhythm. RESPIRATORY: No accessory muscle use. Clear to auscultation. Breath sounds equal bilaterally. GASTROINTESTINAL: Abdomen soft, non-tender, nondistended. Hepatic and splenic margins not palpable. MUSCULOSKELETAL: Extremities without clubbing, cyanosis, or edema. No obvious deformities. NEUROLOGICAL: Awake and alert. No obvious cranial nerve deficits. Motor grossly within normal limits. Five out of 5 muscle strength in the arms and legs. Normal speech. PSYCHIATRIC: Appropriate mood and affect; insight and judgment normal. Assessment and Plan Assessment and Plan ass respiratory failure IC bleed PLAN o2 as needed pulm. toilet REMOVE TRACHEOSTOMY WHEN POSSIBLE Reed Mcbride MD Oct 16, 2016 15:14
[2016-10-16] MEDS: ENOXAPARIN SODIUM 40 MG/0.4 ML SYRINGE SQ SCH (15:51)
[2016-10-16 16:00] VITALS: BP 108/76; PULSE 101; RESP 11; TEMP 99; O2SAT 100
--- NOTE | 2016-10-16 17:00 | HHI.PR ---
Subjective Subjective Comments Patient briefly opens eyes to voice. at bedside. No pain behaviors noted. Trach with trach collar. Allergies: Coded Allergies: No Known Allergies (Unverified , 09/09/16) Review of Systems All other ROS: ROS reviewed as documented in chart, Unable to obtain Exam I&O / VS 10/15/16 10/15/16 10/16/16 15:00 23:00 07:00 Intake Total 480 ml 702 ml Output Total 125 ml 0 ml 300 ml Balance 355 ml 0 ml 402 ml Tube Feeding 160 ml 242 ml Tube Irrigant 320 ml 460 ml Output Urine Total 125 ml 300 ml Tube Feeding Residual Discard 0 ml 0 ml 0 ml # Bowel Movements 1 0 Vital Signs Date Time Temp Pulse Resp B/P Pulse Ox O2 Delivery O2 Flow Rate FiO2 10/16/16 16:00 99.0 101 11 108/76 100 10/16/16 16:00 101 10/16/16 12:00 98.9 104 17 111/83 98 10/16/16 12:00 104 10/16/16 09:09 97 Trach Collar 5.00 21 10/16/16 08:00 90 10/16/16 08:00 98.5 90 14 99/64 98 10/16/16 07:00 98 Trach Collar 29 Humidified 10/16/16 04:00 99.0 92 14 104/75 97 10/16/16 04:00 92 10/16/16 00:00 99.1 96 12 106/68 99 10/16/16 00:00 96 10/15/16 22:30 15 10/15/16 20:28 100 Trach Collar 21 10/15/16 20:00 110 10/15/16 20:00 99.5 110 21 111/74 100 10/15/16 19:00 98 Trach Collar 29 Humidified 10/15/16 18:00 105 General: No acute distress, Other (trach with trach collar) Cardiovascular: Normal rate (Tachycardic) Musculoskeletal: ROM (grossly within normal limits) Orientation: unable to asses Self, unable to asses Situation Neurologic: Pupils (reactive bilaterally), Other (follows commands to move right upper extremity) Assessment and Plan Diagnosis: (1) Cerebellar hemorrhage, acute Assessment 1. Right cerebellar hemorrhage 09/01/16 S/P right suboccipital craniectomy with evacuation of cerebellar hemorrhage with ventriculostomy placement 2. Tracheostomy 09/10/16 on trach collar 3. Gastrostomy tube . 4. Malignant hypertension 5. Pneumonia Plan 1. PT mobilizing and mod max assist for bed mobility and to transfer supine to sit 2. OT for ADL's and mod assist grooming 3. ST following and notes severe dysarthria/dysphagia and patient is currently nothing by mouth 4. Reposition q 2 hours to protect skin and monitor carefully. Roho cushion when up to stretcher chair 5. Patient will need ongoing inpatient rehabilitation care and case management is assisting with Medicaid. Anticipate transfer to LTAC. 6. Will continue to follow while hospitalized and at discharge Ella Healy MD Oct 16, 2016 17:00
== END 2016-10-16 23:12 | DRG 3 ==
LOC: NEPC 19:35 → NEDA 21:05 → N03B 23:25 → N04B 10-06 21:39 → N03B 10-06 21:44
PROVIDERS: ADMIT Internal Medicine; ATTEND Internal Medicine
PROC: 00C70ZZ Extirpation of Matter from Cerebral Hemisphere, Open Approach (ICD-10-PCS; 2016-09-01)
PROC: 5A1955Z Respiratory Ventilation, Greater than 96 Consecutive Hours (ICD-10-PCS; 2016-09-01)
PROC: 009630Z Drainage of Cerebral Ventricle with Drainage Device, Percutaneous Approach (ICD-10-PCS; 2016-09-01)
PROC: 0T9B70Z Drainage of Bladder with Drainage Device, Via Natural or Artificial Opening (ICD-10-PCS; 2016-09-01)
PROC: 05HN33Z Insertion of Infusion Device into Left Internal Jugular Vein, Percutaneous Approach (ICD-10-PCS; 2016-09-02)
PROC: 03HY32Z Insertion of Monitoring Device into Upper Artery, Percutaneous Approach (ICD-10-PCS; 2016-09-04)
PROC: 4A133B1 Monitoring of Arterial Pressure, Peripheral, Percutaneous Approach (ICD-10-PCS; 2016-09-04)
PROC: 4A133J1 Monitoring of Arterial Pulse, Peripheral, Percutaneous Approach (ICD-10-PCS; 2016-09-04)
PROC: 0B113F4 Bypass Trachea to Cutaneous with Tracheostomy Device, Percutaneous Approach (ICD-10-PCS; principal; 2016-09-10)
PROC: 0BJ08ZZ Inspection of Tracheobronchial Tree, Via Natural or Artificial Opening Endoscopic (ICD-10-PCS; 2016-09-10)
PROC: 0DH63UZ Insertion of Feeding Device into Stomach, Percutaneous Approach (ICD-10-PCS; 2016-09-15)
PROC: 0DJ08ZZ Inspection of Upper Intestinal Tract, Via Natural or Artificial Opening Endoscopic (ICD-10-PCS; 2016-09-15)
PROC: 0T9B70Z Drainage of Bladder with Drainage Device, Via Natural or Artificial Opening (ICD-10-PCS; 2016-10-08)
DX: I61.4 Nontraumatic intracerebral hemorrhage in cerebellum (principal); G93.6 Cerebral edema; J69.0 Pneumonitis due to inhalation of food and vomit; G93.40 Encephalopathy, unspecified; J15.0 Pneumonia due to Klebsiella pneumoniae; J15.6 Pneumonia due to other Gram-negative bacteria; R13.10 Dysphagia, unspecified; J96.01 Acute respiratory failure with hypoxia; J96.02 Acute respiratory failure with hypercapnia; G81.94 Hemiplegia, unspecified affecting left nondominant side; G91.9 Hydrocephalus, unspecified; R47.01 Aphasia; N31.9 Neuromuscular dysfunction of bladder, unspecified; T17.918A Gastric contents in respiratory tract, part unspecified causing other injury, initial encounter; R11.10 Vomiting, unspecified; X58.XXXA Exposure to other specified factors, initial encounter; Y93.9 Activity, unspecified; Y92.89 Other specified places as the place of occurrence of the external cause; Y99.0 Civilian activity done for income or pay; I10 Essential (primary) hypertension; N28.9 Disorder of kidney and ureter, unspecified; E87.6 Hypokalemia; R73.09 Other abnormal glucose; Z51.5 Encounter for palliative care; J32.9 Chronic sinusitis, unspecified; R33.9 Retention of urine, unspecified; Y95 Nosocomial condition; F41.9 Anxiety disorder, unspecified; R74.8 Abnormal levels of other serum enzymes; R45.1 Restlessness and agitation; R00.0 Tachycardia, unspecified
CPT/HCPCS: 31600; 36556; 36569; 36600; 49440; 51702; 70450; 70496; 70498; 71010; 74000; 74177; 76705; 76937; 78226; 80048; 80053; 80074; 80076; 80307; 81001; 82550; 82552; 82805; 82948; 83690; 83735; 83880; 83930; 84100; 84132; 84134; 84145; 84295; 84484; 85007; 85025; 85027; 85610; 85730; 86850; 86900; 86901; 87040; 87070; 87077; 87086; 87186; 87205; 87493; 87641; 93005; 94002; 94003; 94640; 94664; 94770; 96365; 99152; 99153; A7520; A9537; C1751; C9113; J0131; J0171; J0295; J0461; J0690; J0692; J0696; J1170; J1580; J1610; J1630; J1642; J1650; J1815; J1953; J2060; J2150; J2250; J2405; J3010; J3230; J3475; J3480; J7030; J7040; J7050; J7120; J7613; J7682; Q9963; Q9967

== ENCOUNTER 2016-12-04 15:35 | Emergency (ER) | payer OTHER, MEDICAID ==
[~2016-12-04] VITALS: Ht 182.9 cm; Wt 80.0 kg
[~2016-12-04 15:35] MED LIST changes: +ACET1TAB86 PO; +BACL10TA PO; +COMMODE 3-IN-11 MIS; +DILT31TA PO; +ENOX40P SQ; +FAMO20TA2 PO; -LACTATED RINGER'S 1000 ML INJ 2,000 ML IV ONE; +ONDA4TAB7 SL; -ONDANSETRON HCL 4 MG/2 ML VIAL IV PUSH ONE; -PROPOFOL 200 MG/20 ML AMP IV ONE; +SCOP1PAT2 T-DERMAL; +SERT25TA83 PO; -SODIUM CHLORID 0.9% 500 ML INJ 500 ML IV ONE; +WHEEMIS3
[2016-12-04 15:37] VITALS: BP 138/90; PULSE 94; RESP 18; TEMP 98.6; O2SAT 96
--- NOTE | 2016-12-04 16:54 | PD ---
HPI Chief Complaint: Dizziness Time Seen by Provider: 16:43 Travel History International Travel<30 days: No Contact w/Intl Traveler<30days: No Traveled to known affect area: No History of Present Illness HPI 41-year-old Afro-[place] male presents to the emergency department after being seen earlier today by Dr. Osborn, the neurologist, and sent over for a CT scan. Patient has had complaints of increasing dizziness/vertigo for the past 2 weeks and numbness in the right hand. Patient has a history of a catastrophic CVA in August 2016 causing left-sided paralysis and speech issues. Patient was given scopolamine patches and change in his meloxicam dose today by Dr. Osborn. He is here mainly to rule out worsening or acute stroke symptoms. Patient denies current headache. CT is ordered. Patient has no known drug allergies. PFSH Past Medical History Asthma: No Cancer: No Cardiovascular Problems: No COPD: No Cerebrovascular Accident: Yes Endocrine: No Genitourinary: No Immune Disorder: No Kidney Stones: No Musculoskeletal: No Neurologic: Yes Psychiatric: No Reproductive: No Respiratory: Yes Migraines: No Renal Failure: No Seizures: No Sleep Apnea: No Past Surgical History Abdominal Surgery: No Cardiac Surgery: No Ear Surgery: No Endocrine Surgery: No Eye Surgery: No Genitourinary Surgery: Yes Gynecologic Surgery: No Oral Surgery: No Thoracic Surgery: No Social History Alcohol Use: No Tobacco Use: No Substance Use: No Allergies-Medications (Allergen,Severity, Reaction): Coded Allergies: No Known Allergies (Unverified , 11/26/16) Reported Meds & Prescriptions Reported Meds & Active Scripts Active Scopolamine Patch 72 HR (Scopolamine) 1 Mg Patch 1 Patch T-DERMAL Q72H Baclofen 10 Mg Tab 10 Mg PO Q8 Sertraline (Sertraline HCl) 25 Mg Tab 25 Mg PO DAILY Cardizem (Diltiazem HCl) 30 Mg Tab 30 Mg PO Q6HR 30 Days Famotidine 20 Mg Tab 20 Mg PO BID 30 Days Ondansetron Odt 4 Mg Tab 4 Mg SL Q6H PRN 30 Days Eq Acetaminophen (Acetaminophen) 325 Mg Tab 650 Mg PO Q6HR PRN 30 Days Wheelchair (Device) 1 Mis Mis 1 Ea .ROUTE DIRECTED Commode 3-in-1 (Device) 1 Mis Mis 1 Ea .ROUTE DIRECTED Reported Famotidine 20 Mg Tab 20 Mg PO BID Review of Systems Except as stated in HPI: all other systems reviewed are Neg General / Constitutional: No: Fever Eyes: No: Visual changes HENT: Positive: Vertigo, No: Headaches Cardiovascular: No: Chest Pain or Discomfort Respiratory: No: Shortness of Breath Gastrointestinal: No: Abdominal Pain Genitourinary: No: Dysuria Musculoskeletal: No: Pain Skin: No Rash Neurologic: No: Weakness Psychiatric: No: Depression Endocrine: No: Polydipsia Hematologic/Lymphatic: No: Easy Bruising Physical Exam Narrative GENERAL: Patient seems to be in no acute distress. SKIN: Warm and dry. Normal color. Normal turgor. HEAD: Atraumatic. Normocephalic. EYES: Pupils equal and round. No scleral icterus. No injection or drainage. Patient is currently wearing a patch over the left eye due to previous stroke. ENT: No nasal bleeding or discharge. Mucous membranes pink and moist. Pharynx is clear. NECK: Trachea midline. Supple. CARDIOVASCULAR: Regular rate and rhythm. No murmurs gallops or rubs. RESPIRATORY: No accessory muscle use. Clear to auscultation. Breath sounds equal bilaterally. GASTROINTESTINAL: Abdomen soft, non-tender, nondistended. Hepatic and splenic margins not palpable. MUSCULOSKELETAL: Extremities without clubbing, cyanosis, or edema. No obvious deformities. NEUROLOGICAL: Awake and alert. Patient has left-sided mild facial droop. Patient has decreased strength in the left upper and lower extremities consistent with previous history. Speech is somewhat garbled secondary to previous CVA. PSYCHIATRIC: Appropriate mood and affect; insight and judgment normal. Data Data Last Documented VS Vital Signs Date Time Temp Pulse Resp B/P (MAP) Pulse Ox O2 Delivery O2 Flow Rate FiO2 12/04/16 15:37 98.6 94 18 138/90 (106) [address] Brain W/O Iv Contrast(Rout) (12/04/16 16:48) [facility] Medical Decision Making Medical Screen Exam Complete: Yes Emergency Medical Condition: Yes Differential Diagnosis Vertigo. History CVA. Right hand numbness. Narrative Course Patient appears medically stable at time of exam. No labs ordered at this time. CT of the head is ordered without contrast. CT is negative for any acute process per radiologist. CT is stable compared to previous. Patient is felt to be medically stable for discharge and follow with Dr. Dee. Diagnosis Primary Impression: Vertigo as late effect of stroke Referrals: Ella Healy MD as needed Patient Instructions: Benign Paroxysmal Positional Vertigo (ED), General Instructions Additional Instructions: CT is negative for any acute process per radiologist. CT is stable compared to previous. Patient is felt to be medically stable for discharge and follow with Dr. Dee. Med/Other Pt SpecificInfo: No Change to Meds Disposition: 01 DISCHARGE HOME Condition: Stable Serjio De Santiago Dec 04, 2016 16:54
--- NOTE | 2016-12-04 18:00 | RADRPT ---
EXAM DATE/TIME: 12/04/2016 17:37 [facility] COMPARISON: CT BRAIN W/O CONTRAST, November 18, 2016, 16:09. INDICATIONS : Patient complains of dizziness. RADIATION DOSE: 34.83 CTDIvol (mGy) MEDICAL HISTORY : Cardiovascular disease. Hypertension. SURGICAL HISTORY : Craniotomy. ENCOUNTER: Initial ACUITY: 1 day PAIN SCALE: 0/10 LOCATION: cranial TECHNIQUE: Multiple contiguous axial images were obtained of the head. Using automated exposure control and adj ustment of the mA and/or kV according to patient size, radiation dose was kept as low as reasonably a chievable to obtain optimal diagnostic quality images. DICOM format image data is available electro nically for review and comparison. FINDINGS: CEREBRUM: Ventricles are normal. There is stable linear low density in the right frontal lobe adjacent to the b urr hole. It extends to the right lateral ventricle. No evidence of midline shift, mass lesion, hemo rrhage or acute infarction. No extra-axial fluid collections are seen. POSTERIOR FOSSA: There is stable low density in the right cerebellum and cerebellar peduncle. EXTRACRANIAL: Visualized sinuses are clear. SKULL: There is a juliana hole in the right frontal bone that is stable. There has been prior right occipital c raniotomy. CONCLUSION: 1. Stable noncontrast head CT. No acute intracranial abnormality is identified. 2. Stable right cerebellar encephalomalacia. Al Fitch MD on December 04, 2016 at 17:52 Board Certified Radiologist. This report was verified electronically.
[2016-12-04 18:25] VITALS: BP 150/75; PULSE 75; RESP 16; O2SAT 100
[2016-12-07] MEDS ORDERED: MECL-62 PO (11:54)
[2016-12-08] MEDS ORDERED: BACL10TA PO (16:12)
[2016-12-24] MEDS ORDERED: BACL20TA PO (11:20)
[2017-01-05] MEDS ORDERED: SERT25TA83 PO (14:09)
[2017-01-05] MEDS ORDERED: MECL-62 PO (14:09)
[2017-01-05] MEDS ORDERED: BACL20TA PO (14:10)
== END 2016-12-04 18:55 | disposition home or self-care (01) ==
LOC: NEPC 15:35
DX: R42 Dizziness and giddiness (principal); R20.0 Anesthesia of skin; I69.951 Hemiplegia and hemiparesis following unspecified cerebrovascular disease affecting right dominant side; I69.928 Other speech and language deficits following unspecified cerebrovascular disease; Z79.899 Other long term (current) drug therapy
CPT/HCPCS: 70450; 99284

== ENCOUNTER → 2016-12-08 | Outpatient (CLI) | payer OTHER ==
[~2016-12-08] MED LIST changes: +BACL20TA PO; -COMMODE 3-IN-11 MIS; -ENOX40P SQ; +MECL-62 PO; -WHEEMIS3
--- NOTE | 2016-12-08 10:09 | RADRPT ---
EXAM DATE/TIME: 12/08/2016 00:00 [facility] COMPARISON: No previous studies available for comparison. INDICATIONS : Dysphagia. FLUORO TIME: 1.9 minutes IMAGE COUNT: 0 CONTRAST: Dose as prescribed by speech pathologist. MEDICAL HISTORY : Hypertension. Stroke. SURGICAL HISTORY : tracheostomy ENCOUNTER: Initial ACUITY: 4 - 6 months PAIN SCORE: 0/10 LOCATION: esophagus FINDINGS: A modified barium swallow was performed with speech pathology. Patient was given a variety of liquids to swallow. There is mild delayed trigger mechanism. Intermittent pooling is noted in the piriform sinuses. [place] otherwise negative. No evidence of aspiration or penetration For a full detailed report, see report by the speech pathologist. CONCLUSION: Grossly negative with no aspiration or penetration. Please see CT pathology report. Riki Guerra MD on December 08, 2016 at 10:07 Board Certified Radiologist. This report was verified electronically.
== END ==
LOC: HRAD 09:00
PROVIDERS: ATTEND Physical Medicine & Rehabilitation
DX: I69.322 Dysarthria following cerebral infarction (principal)
CPT/HCPCS: 74230; 92611; G8996; G8997; G8998

== ENCOUNTER 2017-04-21 14:03 | Emergency (ER) | payer OTHER ==
[~2017-04-21] VITALS: Ht 177.8 cm; Wt 97.5 kg
[~2017-04-21 14:03] MED LIST changes: -ACET1TAB86 PO; +ACET325T15 PO; -BACL10TA PO; -SCOP1PAT2 T-DERMAL
[2017-04-21 14:04] VITALS: BP 141/90; PULSE 87; RESP 18; TEMP 99.1; O2SAT 97
--- NOTE | 2017-04-21 15:34 | RADRPT ---
EXAM DATE/TIME: 04/21/2017 15:15 [facility] COMPARISON: No previous studies available for comparison. INDICATIONS : Left shoulder pain. MEDICAL HISTORY : Cardiovascular disease. Hypertension SURGICAL HISTORY : Craniotomy. ENCOUNTER: Initial ACUITY: 2 weeks PAIN SCORE: 9/10 LOCATION: Left shoulder FINDINGS: Multiple view examination of the left shoulder demonstrates no evidence of fracture or dislocation. The glenohumeral and acromioclavicular joints are maintained. There is normal range of motion betwee n internal and external rotation. Bony mineralization is normal. CONCLUSION: Negative for acute process. Champ Pascal MD FACR on April 21, 2017 at 15:31 Board Certified Radiologist. This report was verified electronically.
--- NOTE | 2017-04-21 18:03 | PD ---
HPI Chief Complaint: Musculoskeletal Complaint Time Seen by Provider: 17:24 Travel History International Travel<30 days: No Contact w/Intl Traveler<30days: No Traveled to known affect area: No History of Present Illness HPI 41-year-old right-hand dominant male with history of stroke and residual left- sided weakness presents to the ED for evaluation of 2 week history of shoulder pain, limitations to abduction after catching himself to avoid a fall. He endorses weakness and occasional numbness and tingling down the arm has been ongoing since his stroke. Pain is rated 8/10, worsened by attempted ROM. No alleviating factors reported. PFSH Past Medical History Asthma: No Cancer: No Cardiovascular Problems: No COPD: No Cerebrovascular Accident: Yes Endocrine: No Genitourinary: No Immune Disorder: No Kidney Stones: No Musculoskeletal: No Neurologic: Yes Psychiatric: No Reproductive: No Respiratory: Yes Migraines: No Renal Failure: No Seizures: No Sleep Apnea: No Past Surgical History Abdominal Surgery: No Cardiac Surgery: No Ear Surgery: No Endocrine Surgery: No Eye Surgery: No Genitourinary Surgery: Yes Gynecologic Surgery: No Oral Surgery: No Thoracic Surgery: No Social History Alcohol Use: No Tobacco Use: No Substance Use: No Allergies-Medications (Allergen,Severity, Reaction): Coded Allergies: No Known Allergies (Unverified Adverse Reaction, Unknown, 04/21/17) Reported Meds & Prescriptions Reported Meds & Active Scripts Active Non-Aspirin Pain Relief (Acetaminophen) 325 Mg Tab 650 Mg PO Q4-6H Baclofen 20 Mg Tab 20 Mg PO QID Meclizine (Meclizine HCl) 25 Mg Tab 25 Mg PO DAILY PRN Sertraline (Sertraline HCl) 25 Mg Tab 25 Mg PO DAILY Cardizem (Diltiazem HCl) 30 Mg Tab 30 Mg PO Q6HR 30 Days Reported Famotidine 20 Mg Tab 20 Mg PO BID Review of Systems Except as stated in HPI: all other systems reviewed are Neg Physical Exam Narrative GENERAL: Well-nourished, well-developed wheelchair-bound AA male in NAD. SKIN: Focused skin assessment warm/dry. HEAD: Normocephalic. EYES: No scleral icterus. No injection or drainage. NECK: Supple, trachea midline. No JVD or lymphadenopathy. CARDIOVASCULAR: Regular rate and rhythm without murmurs, gallops, or rubs. RESPIRATORY: Breath sounds equal bilaterally. No accessory muscle use. GASTROINTESTINAL: Abdomen soft, non-tender, nondistended. MUSCULOSKELETAL: No cyanosis, or edema. FOCUSED LEFT UPPER EXTREMITY EXAM: 2+ radial pulse. Tender to palpation of the anterior aspect of the shoulder. Pain elicited with external rotation. Drop arm test positive. Neurovascularly intact distally. BACK: Nontender without obvious deformity. No CVA tenderness. Data Data Last Documented VS Vital Signs Date Time Temp Pulse Resp B/P (MAP) Pulse Ox O2 Delivery O2 Flow Rate FiO2 04/21/17 14:04 99.1 87 18 141/90 (107) 97 Room Air Orders Orders Shoulder, Complete (>2vws) (04/21/17 ) Mandatory Outpatient Referral (04/21/17 18:07) Ed Discharge Order (04/21/17 18:09) Mandatory Outpatient Referral (04/21/17 18:27) [facility] Medical Decision Making Medical Screen Exam Complete: Yes Emergency Medical Condition: Yes Differential Diagnosis Musculoskeletal pain versus sprain versus rotator cuff injury versus other Narrative Course 41-year-old right-hand dominant male with history of stroke and residual left- sided weakness presents to the ED for evaluation of 2 week history of shoulder pain, limitations to abduction after catching himself to avoid a fall. He endorses weakness and occasional numbness and tingling down the arm has been ongoing since his stroke. He also complains of occasional, intermittent "locking up" of the left-sided extremities. He has not seen Dr. Ovalles since discharge from the hospital. Currently undergoing OT and taking muscle relaxants. He does not have insurance. Vitals reviewed. Physical exam consistent with rotator cuff injury. Drop arm test positive. Weakness with external rotation. Patient is prescribed a short course of Tylenol, instructed to rest and ice the extremity. Mandatory outpatient consults were placed with the orthopedist and neurologist. Patient's provided a short course of Tylenol and instructed to follow-up as discussed. The patient is indicated understanding of instructions and are agreeable to the care plan. The patient is stable and discharged home. Diagnosis Primary Impression: Rotator cuff arthropathy of left shoulder Referrals: Ector Morales MD,Renato Hameed MD Patient Instructions: General Instructions, Rotator Cuff Injury (ED) Additional Instructions: Rest, ice, the extremity. Apply ice no longer than 10-15 minutes per hour a few times a day. 650 acetaminophen as prescribed, as needed for pain and inflammation. Return to normal, gentle activity as tolerated. A mandatory outpatient consult has been placed on your behalf. You should hear from Dr. Ovalles and Dr. Krause's office within the next week. Return to the ED for any urgent or emergent medical condition. Med/Other Pt SpecificInfo: Prescription(s) given Scripts Acetaminophen (Non-Aspirin Pain Relief) 325 Mg Tab 650 MG PO Q4-6H, #20 TAB 0 Refills Prov: Raquel Kidd MD 04/21/17 Disposition: 01 DISCHARGE HOME Condition: Stable Geneva Kuhn Apr 21, 2017 18:03
[2017-04-21] MEDS ORDERED: NON-325T6 PO (18:05)
[2017-04-27] MEDS ORDERED: TRAM50 PO (12:47)
[2017-04-27] MEDS ORDERED: DILT31TA PO (12:47)
== END 2017-04-21 18:30 | disposition home or self-care (01) ==
LOC: NEPK 14:03
DX: M19.012 Primary osteoarthritis, left shoulder (principal); R20.0 Anesthesia of skin; R53.1 Weakness; Z86.73 Personal history of transient ischemic attack (TIA), and cerebral infarction without residual deficits
CPT/HCPCS: 73030; 99283

== ENCOUNTER 2017-06-02 16:28 | Observation (INO) | payer OTHER ==
[~2017-06-02] VITALS: Ht 180.3 cm; Wt 97.7 kg
[~2017-06-02 16:28] MED LIST changes: -ACET325T15 PO; +NON-325T6 PO; -ONDA4TAB7 SL; +TRAM50 PO
[2017-06-02 16:30] VITALS: BP 133/86; PULSE 95; RESP 16; TEMP 98.5; O2SAT 99
[2017-06-02 19:56] VITALS: BP 137/81; PULSE 85; RESP 18; O2SAT 99
[2017-06-02] MEDS ORDERED: SODIUM CHLOR 0.9% 1000 ML INJ 1,000 ML IV ONE (20:00)
[2017-06-02] MEDS ORDERED: SODIUM CHLORIDE 0.9% FLUSH 10 ML FLUSH IVF PRN (20:00)
--- NOTE | 2017-06-02 20:02 | RADRPT ---
EXAM DATE/TIME: 06/02/2017 18:12 [facility] COMPARISON: CT BRAIN W/O CONTRAST, December 04, 2016, 17:37. INDICATIONS : Cephalgia. RADIATION DOSE: 47.38 CTDIvol (mGy) MEDICAL HISTORY : Stroke. Hypertension. SURGICAL HISTORY : Craniotomy. ENCOUNTER: Initial ACUITY: 1 day PAIN SCALE: 5/10 LOCATION: cranial TECHNIQUE: Multiple contiguous axial images were obtained of the head. Using automated exposure control and adj ustment of the mA and/or kV according to patient size, radiation dose was kept as low as reasonably a chievable to obtain optimal diagnostic quality images. DICOM format image data is available electro nically for review and comparison. FINDINGS: CEREBRUM: The ventricles are normal for age. No evidence of midline shift, mass lesion, hemorrhage or acute in farction. No extra-axial fluid collections are seen. POSTERIOR FOSSA: The examination demonstrates changes consistent with suboccipital craniotomy and postoperative change within the right cerebellar hemisphere. These findings are stable compared to previous study dated . EXTRACRANIAL: The visualized portion of the orbits is intact. SKULL: There are postsurgical changes in the right side is subtle bone. The skull is otherwise intact. CONCLUSION: 1. Postsurgical changes in the posterior fossa. No acute intercranial abnormality identified. 2. Stable compared to a prior examination dated 12/04/16. Tera Pascal MD on June 02, 2017 at 20:00 Board Certified Radiologist. This report was verified electronically.
--- NOTE | 2017-06-02 20:36 | PD ---
HPI Chief Complaint: Medical Clearance Time Seen by Provider: 19:32 Travel History International Travel<30 days: No Contact w/Intl Traveler<30days: No Traveled to known affect area: No History of Present Illness HPI 41-year-old male arrives to the ER complaining of weakness in left upper extremity worse than normal. He is also had right upper extremity swelling. He also notes greater prominence of the depression in the right temporal scalp and occipital scalp on the right side. Patient suffered intracranial hemorrhage about 10 months ago and subsequently required neurosurgical intervention. He has been doing well until a few days ago when symptoms as noted her first experience. He denies any here for medication. He has had no traumatic injury. Severity moderate. Onset gradual. Timing constant. PFSH Past Medical History Asthma: No Cancer: No Cardiovascular Problems: No COPD: No Cerebrovascular Accident: Yes ( hemorragic stroke 09/01/16) Endocrine: No Genitourinary: No Immune Disorder: No Kidney Stones: No Musculoskeletal: No Neurologic: Yes Psychiatric: No Reproductive: No Respiratory: Yes Migraines: No Renal Failure: No Seizures: No Sleep Apnea: No Tetanus Vaccination: Never Vaccinated Influenza Vaccination: No Past Surgical History Abdominal Surgery: Yes (hx feeding tube, none at this time) Cardiac Surgery: No Ear Surgery: No Endocrine Surgery: No Eye Surgery: No Genitourinary Surgery: Yes Gynecologic Surgery: No Oral Surgery: No Thoracic Surgery: No Social History Alcohol Use: No Tobacco Use: No Substance Use: No Allergies-Medications (Allergen,Severity, Reaction): Coded Allergies: No Known Allergies (Unverified Adverse Reaction, Unknown, 06/02/17) Reported Meds & Prescriptions Reported Meds & Active Scripts Active Ultram (Tramadol HCl) 50 Mg Tab 50 Mg PO BID PRN Cardizem (Diltiazem HCl) 30 Mg Tab 30 Mg PO Q6HR Baclofen 20 Mg Tab 20 Mg PO QID Review of Systems Except as stated in HPI: all other systems reviewed are Neg Physical Exam Narrative GENERAL: 41-year-old male well-nourished well-developed no acute distress Vital Signs Date Time Temp Pulse Resp B/P (MAP) Pulse Ox O2 Delivery O2 Flow Rate FiO2 06/02/17 19:56 85 18 137/81 (99) 99 Room Air 06/02/17 16:30 98.5 95 16 133/86 (102) 99 SKIN: Warm and dry. HEAD: Atraumatic. Normocephalic. Along the right temporal scalp there is depression as well as in the region of the right occipital scalp. There is no focus of tenderness or erythema. EYES: Pupils equal and round. No scleral icterus. No injection or drainage. ENT: No nasal bleeding or discharge. Mucous membranes pink and moist. NECK: Trachea midline. No JVD. CARDIOVASCULAR: Regular rate and rhythm. RESPIRATORY: No accessory muscle use. Clear to auscultation. Breath sounds equal bilaterally. GASTROINTESTINAL: Abdomen soft, non-tender, nondistended. Hepatic and splenic margins not palpable. MUSCULOSKELETAL: There is minimal prominence of the right upper extremity musculature in comparison to the left. No warmth erythema or induration. NEUROLOGICAL: There is weakness of the left upper extremity compared to the right approximately 3 out of 5 in the left upper extremity. Speech is somewhat dysarthric. Memory mentation are within normal limits. PSYCHIATRIC: Appropriate mood and affect; insight and judgment normal. Data Data Last Documented VS Vital Signs Date Time Temp Pulse Resp B/P (MAP) Pulse Ox O2 Delivery O2 Flow Rate FiO2 06/02/17 19:56 85 18 137/81 (99) 99 Room Air 06/02/17 16:[address] Brain W/O Iv Contrast(Rout) (06/02/17 ) Complete Blood Count With Diff (06/02/17 19:57) Basic Metabolic Panel (Bmp) (06/02/17 19:57) Drug Screen, Random Urine (06/02/17 19:57) Urinalysis - C+S If Indicated (06/02/17 19:57) Ecg Monitoring (06/02/17 19:57) Iv Access Insert/Monitor (06/02/17 19:57) Oximetry (06/02/17 19:57) Sodium Chloride 0.9% Flush (Ns Flush) (06/02/17 20:00) Us Arm Venous Doppler (06/02/17 ) Sodium Chlor 0.9% 1000 Ml Inj (Ns 1000 M (06/02/17 20:00) Admit Order (Ed Use Only) (06/02/17 ) Vital Signs (Adult) Q4H (06/02/17 22:41) Activity Oob With Assistance (06/02/17 22:41) Labs Laboratory Tests Test 06/02/17 21:20 White Blood Count 6.3 TH/MM3 Red Blood Count 6.39 MIL/MM3 Hemoglobin 17.6 GM/DL Hematocrit 51.9 % Mean Corpuscular Volume 81.2 FL Mean Corpuscular Hemoglobin 27.5 PG Mean Corpuscular Hemoglobin Concent 33.9 % Red Cell Distribution Width 16.0 % Platelet Count 257 TH/MM3 Mean Platelet Volume 8.3 FL Neutrophils (%) (Auto) 44.6 % Lymphocytes (%) (Auto) 40.9 % Monocytes (%) (Auto) 13.0 % Eosinophils (%) (Auto) 1.1 % Basophils (%) (Auto) 0.4 % Neutrophils # (Auto) 2.8 TH/MM3 Lymphocytes # (Auto) 2.6 TH/MM3 Monocytes # (Auto) 0.8 TH/MM3 Eosinophils # (Auto) 0.1 TH/MM3 Basophils # (Auto) 0.0 TH/MM3 CBC Comment DIFF FINAL Differential Comment Blood Urea Nitrogen 10 MG/DL Creatinine 1.22 MG/DL Random Glucose 73 MG/DL Calcium Level 9.6 MG/DL Sodium Level 136 MEQ/L Potassium Level 4.7 MEQ/L Chloride Level 103 MEQ/L Carbon Dioxide Level 26.6 MEQ/L Anion Gap 6 MEQ/L Estimat Glomerular Filtration Rate 80 ML/MIN MDM Medical Decision Making Medical Screen Exam Complete: Yes Emergency Medical Condition: Yes Medical Record Reviewed: Yes Differential Diagnosis Acute on chronic weakness, acute stroke, electrolyte imbalance Narrative Course CBC & BMP Diagram 06/02/17 21:20 Calcium Level 9.6 Last Impressions Upper Extremity Ultrasound 06/02/17 0000 Signed Impressions: Service Date/Time: Friday, June 02, 2017 21:42 - CONCLUSION: 1. No DVT identified. Tera Pascal MD Head CT 06/02/17 0000 Signed Impressions: Service Date/Time: Friday, June 02, 2017 18:12 - CONCLUSION: 1. Postsurgical changes in the posterior fossa. No acute intercranial abnormality identified. 2. Stable compared to a prior examination dated 12/04/16. Tera Pascal MD Symptoms of indeterminant chronicity and severity. There is concern for acute stroke. Admission to [facility]. D/w Dr Montague. Diagnosis Primary Impression: Stroke Qualified Codes: I63.9 - Cerebral infarction, unspecified Additional Impressions: Swelling of right upper extremity Weakness of left upper extremity Admitting Information Admitting Physician Requests: Admit Tera Pickard MD Jun 02, 2017 20:36
[2017-06-02 21:37] LABS: AUTOMATED NEUTROPHIL # 2.8 TH/MM3 (1.8-7.7); BASOPHIL % 0.4 % (0.0-2.0); EOSINOPHIL # 0.1 TH/MM3 (0-0.4); EOSINOPHIL % 1.1 % (0.0-4.0); HEMATOCRIT 51.9 % (39.0-51.0); HEMOGLOBIN 17.6 GM/DL (13.0-17.0); LYMPH % 40.9 % (9.0-44.0); LYMPHOCYTE # 2.6 TH/MM3 (1.0-4.8); MEAN CELL VOLUME 81.2 FL (80.0-100.0); MEAN CORPUSCULAR HEMOGLOBIN 27.5 PG (27.0-34.0); MEAN CORPUSCULAR HGB CONC 33.9 % (32.0-36.0); MEAN PLATELET VOLUME 8.3 FL (7.0-11.0); MONOCYTE # 0.8 TH/MM3 (0-0.9); NEUT % 44.6 % (16.0-70.0); PLATELET COUNT 257 TH/MM3 (150-450); RED BLOOD COUNT 6.39 MIL/MM3 (4.50-5.90); WHITE BLOOD COUNT 6.3 TH/MM3 (4.0-11.0)
[2017-06-02 21:53] LABS: BICARBONATE 26.6 MEQ/L (21.0-32.0); CALCIUM 9.6 MG/DL (8.5-10.1); CREATININE 1.22 MG/DL (0.60-1.30)
--- NOTE | 2017-06-02 22:18 | RADRPT ---
EXAM DATE/TIME: 06/02/2017 21:42 [facility] COMPARISON: US ABDOMEN - LIVER, September 18, 2016, 8:42. INDICATIONS : Right arm swelling. MEDICAL HISTORY : Hypertension. Benign prostatic hyperplasia, (BPH) Cerebrovascular accident. Numbness. SURGICAL HISTORY : Tracheostomy. Crainiotomy. PEG tube placement and removal. ENCOUNTER: Initial ACUITY: 1 week PAIN SCORE: 0/10 LOCATION: Right arm. FINDINGS: There is spontaneous flow documented in the brachial, basilic, cephalic, axillary, and visualized por tions of the subclavian veins. The vessels are compressible and augmentation response is documented. No filling defects are seen. The flow is phasic with respiration. Direction of flow in the jugula r vein is caudal. CONCLUSION: 1. No DVT identified. Tera Pascal MD on June 02, 2017 at 22:15 Board Certified Radiologist. This report was verified electronically.
[2017-06-02 23:14] VITALS: BP 120/70; PULSE 74; RESP 18; O2SAT 100
[2017-06-02] MEDS ORDERED: DEXTROSE 50% IN WATER 50 ML VIAL(D50) IV PUSH PRN (23:30)
[2017-06-02] MEDS ORDERED: SODIUM CHLORIDE 0.9% FLUSH 10 ML FLUSH IV FLUSH PRN (23:30)
[2017-06-02] MEDS ORDERED: GLUCAGON 1 MG/ML VIAL OTHER PRN (23:30)
[2017-06-03] VITALS (11 sets, daily range): BP systolic 117–163; BP diastolic 65–97; PULSE 65–107; RESP 16–18; TEMP 97.4–98.2; O2SAT 96–98
[2017-06-03] MEDS ORDERED: ENOXAPARIN SODIUM 40 MG/0.4 ML SYRINGE SQ SCH
[2017-06-03 00:59] LABS: BILIRUBIN, URINE NEG (NEG); BLOOD, URINE NEG (NEG); GLUCOSE,URINE NEG (NEG); KETONE, URINE NEG (NEG); MUCUS URINE FEW /lpf (OCC); NITRITE,URINE NEG (NEG); PH, URINE 6.5 (5.0-8.5); URINE COLOR YELLOW (YELLW/STRAW); URINE LEUKOCYTE ESTERASE NEG (NEG)
--- NOTE | 2017-06-03 02:26 | HHI.HP ---
HPI Service [facility] Primary Care Physician Ella Healy MD Admission Diagnosis TIA; RUE Weakness Diagnoses: Travel History International Travel<30 Days: No Contact w/Intl Traveler <30 Da: No Traveled to Known Affected Are: No History of Present Illness Dirty 11-year-old male with past medical history significant for malignant hypertension, status post hemorrhagic stroke on 09/01/16 presents to the emergency department with multiple complaints. The patient reports that the right side of his head is "sinking in." He also reports right hand swelling, right eyelid droop and an increase in his slurred speech. He reports bilateral hand tingling and left foot tingling. He also notes that his left-sided weakness is increased from baseline. He states these symptoms have been progressively worsening for the past 1.5 weeks. He denies headaches. No chest pain or shortness of breath. Denies nausea/vomiting/diarrhea. Review of Systems Except as stated in HPI: all other systems reviewed are Neg Past Family Social History Past Medical History Hemorrhagic stroke Hypertension Past Surgical History Right occipital craniectomy with evacuation of SDH/SAH and ventriculostomy placement on 09/01/16 Status post trach/PEG Reported Medications Reported Meds & Active Scripts Active Ultram (Tramadol HCl) 50 Mg Tab 50 Mg PO BID PRN Cardizem (Diltiazem HCl) 30 Mg Tab 30 Mg PO Q6HR Baclofen 20 Mg Tab 20 Mg PO QID Allergies: Coded Allergies: No Known Allergies (Unverified Adverse Reaction, Unknown, 06/02/17) Family History Father with diabetes mellitus Social History Occasional alcohol. Denies tobacco, illicit drugs. Physical Exam Vital Signs Vital Signs Date Time Temp Pulse Resp B/P (MAP) Pulse Ox O2 Delivery O2 Flow Rate FiO2 06/03/17 00:42 97.8 82 18 135/79 (97) 96 06/02/17 23:22 06/02/17 23:14 74 18 120/70 (87) 100 Room Air 06/02/17 19:56 85 18 137/81 (99) 99 Room Air 06/02/17 16:30 98.5 95 16 133/86 (102) 99 Physical Exam GENERAL: male lying in bed SKIN: No rashes, ecchymoses or lesions. Cool and dry. HEAD: Atraumatic. Normocephalic. No temporal or scalp tenderness. EYES: Pupils equal round and reactive. Extraocular motions intact. No scleral icterus. No injection or drainage. ENT: Nose without bleeding, purulent drainage or septal hematoma. Throat without erythema, tonsillar hypertrophy or exudate. Uvula midline. Airway patent. NECK: Trachea midline. No JVD or lymphadenopathy. Supple, nontender, no meningeal signs. CARDIOVASCULAR: Regular rate and rhythm without murmurs, gallops, or rubs. RESPIRATORY: Clear to auscultation. Breath sounds equal bilaterally. No wheezes , rales, or rhonchi. GASTROINTESTINAL: Abdomen soft, non-tender, nondistended. No hepato-splenomegaly , or palpable masses. No guarding. MUSCULOSKELETAL: Extremities without clubbing, cyanosis, or edema. No joint tenderness, effusion, or edema noted. No calf tenderness. NEUROLOGICAL: Awake and alert. Significantly slurred speech. Left upper and lower extremity weakness. Laboratory Laboratory Tests Test 06/02/17 21:20 06/03/17 00:38 White Blood Count 6.3 Red Blood Count 6.39 Hemoglobin 17.6 Hematocrit 51.9 Mean Corpuscular Volume 81.2 Mean Corpuscular Hemoglobin 27.5 Mean Corpuscular Hemoglobin Concent 33.9 Red Cell Distribution Width 16.0 Platelet Count 257 Mean Platelet Volume 8.3 Neutrophils (%) (Auto) 44.6 Lymphocytes (%) (Auto) 40.9 Monocytes (%) (Auto) 13.0 Eosinophils (%) (Auto) 1.1 Basophils (%) (Auto) 0.4 Neutrophils # (Auto) 2.8 Lymphocytes # (Auto) 2.6 Monocytes # (Auto) 0.8 Eosinophils # (Auto) 0.1 Basophils # (Auto) 0.0 CBC Comment DIFF FINAL Differential Comment Blood Urea Nitrogen 10 Creatinine 1.22 Random Glucose 73 Calcium Level 9.6 Sodium Level 136 Potassium Level 4.7 Chloride Level 103 Carbon Dioxide Level 26.6 Anion Gap 6 Estimat Glomerular Filtration Rate 80 Urine Color YELLOW Urine Turbidity CLEAR Urine pH 6.5 Urine Specific [place] 1.016 Urine Protein 100 Urine Glucose (UA) NEG Urine Ketones NEG Urine Occult Blood NEG Urine Nitrite NEG Urine Bilirubin NEG Urine Urobilinogen LESS THAN 2.0 Urine Leukocyte Esterase NEG Urine RBC LESS THAN 1 Urine WBC 1 Urine Mucus FEW Microscopic Urinalysis Comment CATH-CULT NOT IND Urine Opiates Screen NEG Urine Barbiturates Screen NEG Urine Amphetamines Screen NEG Urine Benzodiazepines Screen NEG Urine Cocaine Screen NEG Urine Cannabinoids Screen NEG Result Diagram: 06/02/17211906/02/172119 Caprini VTE Risk Assessment Caprini VTE Risk Assessment: No/Low Risk (score <= 1) Caprini Risk Assessment Model Point Value = 1 Point Value = 2 Point Value = 3 Point Value = 5 Age 41-60 Minor surgery BMI > 25 kg/m2 Swollen legs Varicose veins or History of unexplained or recurrent spontaneous Oral contraceptives or hormone replacement Sepsis (< 1 month) Serious lung disease, including pneumonia (< 1 month) Abnormal pulmonary function Acute myocardial infarction Congestive heart failure (< 1 month) History of inflammatory bowel disease Medical patient at bed rest Age 61-74 Arthroscopic surgery Major open surgery (> 45 min) Laparoscopic surgery (> 45 min) Malignancy Confined to bed (> 72 hours) Immobilizing plaster cast Central venous access Age >= 75 History of VTE Family history of VTE Factor V Leiden Prothrombin [id number] Lupus anticoagulant Anticardiolipin antibodies Elevated serum homocysteine Heparin-induced thrombocytopenia Other congenital or acquired thrombophilia Stroke (< 1 month) Elective arthroplasty Hip, pelvis, or leg fracture Acute spinal cord injury (< 1 month) Prophylaxis Regimen Total Risk Factor Score Risk Level Prophylaxis Regimen 0-1 Low Early ambulation 2 Moderate Order ONE of the following: *Sequential Compression Device (SCD) *Heparin 5000 units SQ BID 3-4 Higher Order ONE of the following medications: *Heparin 5000 units SQ TID *Enoxaparin/Lovenox 40 mg SQ daily (WT < 150 kg, CrCl > 30 mL/min) *Enoxaparin/Lovenox 30 mg SQ daily (WT < 150 kg, CrCl > 10-29 mL/min) *Enoxaparin/Lovenox 30 mg SQ BID (WT < 150 kg, CrCl > 30 mL/min) AND/OR *Sequential Compression Device (SCD) 5 or more Highest Order ONE of the following medications: *Heparin 5000 units SQ TID (Preferred with Epidurals) *Enoxaparin/Lovenox 40 mg SQ daily (WT < 150 kg, CrCl > 30 mL/min) *Enoxaparin/Lovenox 30 mg SQ daily (WT < 150 kg, CrCl > 10-29 mL/min) *Enoxaparin/Lovenox 30 mg SQ BID (WT < 150 kg, CrCl > 30 mL/min) AND *Sequential Compression Device (SCD) Assessment and Plan Assessment and Plan Assessment/plan: 1. CVA/TIA Patient with worsening slurred speech, worsening left-sided weakness, numbness concerning for CVA Head CT negative for acute process MRI/MRA brain and carotid ultrasound pending Echo pending PT eval Neurology consulted, appreciate recommendations 2. Hypertension Continue home diltiazem 3. History of CVA Continue baclofen for muscle spasm Morphine for pain FEN NPO NS at 70 cc/hr Electrolytes: Monitor and replete when necessary Holding anticoagulation secondary to history of hemorrhagic stroke Kathy Montague MD Jun 03, 2017 02:26
[2017-06-03] MEDS ORDERED: MORPHINE SULFATE 2 MG/ML INJ IV PUSH PRN (02:30)
[2017-06-03] MEDS: SODIUM CHLOR 0.9% 1000 ML INJ 1,000 ML IV SCH ×2 (03:12→18:39)
[2017-06-03] MEDS: DILTIAZEM HCL 30 MG TAB PO SCH ×3 (06:19→18:39)
[2017-06-03] MEDS: BACLOFEN 20 MG TAB PO SCH ×2 (06:19→13:19)
[2017-06-03 07:11] LABS: AUTOMATED NEUTROPHIL # 2.7 TH/MM3 (1.8-7.7); BASOPHIL % 0.5 % (0.0-2.0); EOSINOPHIL # 0.1 TH/MM3 (0-0.4); EOSINOPHIL % 1.2 % (0.0-4.0); HEMATOCRIT 44.9 % (39.0-51.0); HEMOGLOBIN 14.8 GM/DL (13.0-17.0); LYMPH % 43.3 % (9.0-44.0); LYMPHOCYTE # 2.8 TH/MM3 (1.0-4.8); MEAN CELL VOLUME 82.7 FL (80.0-100.0); MEAN CORPUSCULAR HEMOGLOBIN 27.2 PG (27.0-34.0); MEAN CORPUSCULAR HGB CONC 32.9 % (32.0-36.0); MEAN PLATELET VOLUME 8.5 FL (7.0-11.0); MONO % 13.5 % (0.0-8.0); MONOCYTE # 0.9 TH/MM3 (0-0.9); NEUT % 41.5 % (16.0-70.0); PLATELET COUNT 248 TH/MM3 (150-450); RED BLOOD COUNT 5.44 MIL/MM3 (4.50-5.90); RED CELL DISTRIBUTION WIDTH 16.1 % (11.6-17.2); WHITE BLOOD COUNT 6.5 TH/MM3 (4.0-11.0)
[2017-06-03 07:36] LABS: BICARBONATE 29.5 MEQ/L (21.0-32.0); BLOOD UREA NITROGEN 9 MG/DL (7-18); CALCIUM 8.6 MG/DL (8.5-10.1); CHLORIDE 105 MEQ/L (98-107); CHOLESTEROL 210 MG/DL (120-200); CHOLESTEROL/ HDL RATIO 4.42 RATIO; CREATININE 1.05 MG/DL (0.60-1.30); GLOMERULAR FILTRATION RATE 95 ML/MIN (>89); GLUCOSE,RANDOM 85 MG/DL (74-106); HDL CHOLESTEROL 47.5 MG/DL (40.0-60.0); LDL CHOLESTEROL 124 MG/DL (0-99); SODIUM (NA) 140 MEQ/L (136-145); TRIGLYCERIDES 195 MG/DL (42-150)
[2017-06-03] MEDS: INSULIN ASPART SUPPLEMENTAL SCALE SQ SCH ×4 (08:00→21:00)
--- NOTE | 2017-06-03 08:49 | RADRPT ---
EXAM DATE/TIME: 06/03/2017 08:12 [facility] COMPARISON: No previous studies available for comparison. INDICATIONS : Cerebrovascular accident. MEDICAL HISTORY : Hypertension. Benign prostatic hyperplasia, (BPH) Cerebrovascular accident. Numbness. SURGICAL HISTORY : Tracheostomy. Crainiotomy. PEG tube placement and removal. ENCOUNTER: Initial ACUITY: 1 day PAIN SCORE: 0/10 LOCATION: Bilateral neck PEAK SYSTOLIC VELOCITIES (cm/sec): ICA/CCA RATIO: Right: 1.1 Left: 0.8 ICA: Right: 65 Left: 57 CCA: Right: 61 Left: 75 ECA: Right: 67 Left: 82 VERTEBRAL: Right: 30 antegrade Left: 26 antegrade Elevated flow velocities and ICA/CCA ratios have been found to correlate with increased degrees of vessel stenosis, calculated as percentage of diameter relative to a normal segment of distal ICA/CCA FINDINGS: RIGHT CAROTID: No appreciable plaque. No significant stenosis is visualized. The waveforms are within normal limits . LEFT CAROTID: No appreciable plaque. No significant stenosis is visualized. The waveforms are within normal limits . VERTEBRAL ARTERIES: Antegrade flow is seen in both vertebral arteries. MISCELLANEOUS: None. CONCLUSION: 1. Patent carotid arteries bilaterally. 2. Antegrade flow involving both vertebral arteries. Alexis Maddox Jr., MD on June 03, 2017 at 8:45 Board Certified Radiologist. This report was verified electronically.
[2017-06-03] MEDS: SODIUM CHLORIDE 0.9% FLUSH 10 ML FLUSH IV FLUSH SCH ×2 (09:00→21:00)
--- NOTE | 2017-06-03 11:10 | RADRPT ---
EXAM DATE/TIME: 06/03/2017 10:21 [facility] COMPARISON: No previous studies available for comparison. INDICATIONS : CVA. Right sided weakness. MEDICAL HISTORY : Hypertension. Stroke SURGICAL HISTORY : Craniotomy. ENCOUNTER: Subsequent ACUITY: 2 day PAIN SCORE: 0/10 LOCATION: cranial Please note a normal MRA of the brain does not entirely exclude the possibility of a small aneurysm, nor the possibility of distal intracranial vessel disease. TECHNIQUE: 3D time of flight MRA was performed. Source images, multiplanar STS MIP, and 3D volume MIP reconstru ctions were reviewed. FINDINGS: There is excellent visualization of the major intracranial arteries out to the second-order branch ve ssels. There is no evidence for aneurysm, vessel truncation or stenosis, and no evidence for vascula r malformation. CONCLUSION: Normal examination. Al Hernandez MD on June 03, 2017 at 11:02 Board Certified Radiologist. This report was verified electronically.
[2017-06-03 11:21] LABS: ALBUMIN 2.9 GM/DL (3.4-5.0); DIRECT BILIRUBIN ADULT 0.1 MG/DL (0.0-0.2)
[2017-06-03 11:22] LABS: INDIRECT BILIRUBIN 0.4 MG/DL (0.0-0.8); TOTAL BILIRUBIN ADULT 0.5 MG/DL (0.2-1.0); TOTAL PROTEIN 7.1 GM/DL (6.4-8.2)
--- NOTE | 2017-06-03 11:31 | RADRPT ---
EXAM DATE/TIME: 06/03/2017 10:21 [facility] COMPARISON: CT BRAIN W/O CONTRAST, June 02, 2017, 18:12. INDICATIONS : CVA. Right sided weakness. MEDICAL HISTORY : Hypertension. Stroke SURGICAL HISTORY : Craniotomy. ENCOUNTER: Subsequent ACUITY: 2 day PAIN SCORE: 0/10 LOCATION: cranial TECHNIQUE: Multiplanar, multisequence MRI of the brain was performed without contrast. FINDINGS: There has been craniotomy and there is postoperative encephalomalacia in the right cerebellar hemisph ere and adjacent cerebellar peduncle.. The supratentorial brain is symmetric and unremarkable. There is no evidence of intracranial hemorrhage or mass. There is nothing to suggest acute infarction. The extracranial structures are benign and intact. CONCLUSION: No acute intracranial findings. Al Hernandez MD on June 03, 2017 at 11:26 Board Certified Radiologist. This report was verified electronically.
--- NOTE | 2017-06-03 11:42 | HHI.PR ---
Subjective Remarks Follow up for TIA vs CVA. The patient reports feeling slightly better today. He has some expressive aphasia, slow to answer questions but answers and communicates appropriately. Oriented x4. He states over the past month he has been noticing worsening depression of the skull at the site of the prior craniectomy. He states he also had episodes of worsening double vision over the past month, however denies any blurred/double vision currently. He states he just feels like he hasn't been getting any better over the past month. Still with LUE/LLE weakness which he believes is slightly worse than a month ago. He continues to go to outpatient rehab at the [address] [place] [id number] twice a week for ST/OT/ PT. Discussed with the patient labs show evidence of dehydration. The patient admits that he was vomiting recently, most recent episode was 5days ago. Denies any diarrhea. Denies any current abdominal pain, nausea/vomiting. He also admits to not drinking much water recently but does not give any reasoning. He otherwise had no other medical complaints to report at this time. Objective Vitals Vital Signs Date Time Temp Pulse Resp B/P (MAP) Pulse Ox O2 Delivery O2 Flow Rate FiO2 06/03/17 08:00 65 06/03/17 07:35 97.7 73 18 128/78 (95) 97 06/03/17 04:12 79 06/03/17 03:22 97.9 80 18 117/72 (87) 97 06/03/17 00:42 97.8 82 18 135/79 (97) 96 06/02/17 23:22 06/02/17 23:14 74 18 120/70 (87) 100 Room Air 06/02/17 19:56 85 18 137/81 (99) 99 Room Air 06/02/17 16:30 98.5 95 16 133/86 (102) 99 I/O 06/02/17 06/02/17 06/02/17 06/03/17 06/03/17 06/03/17 07:00 15:00 23:00 07:00 15:00 23:00 Intake Total 50 ml Balance 50 ml Intake Oral 50 ml # Voids 1 Result Diagram: 06/03/17 0610 06/03/17 0610 Imaging Last Impressions Head Magnetic Resonance Angiography 06/03/17 0000 Signed Impressions: Service Date/Time: May 10:21 - CONCLUSION: Normal examination. Al Hernandez MD Carotid Artery Ultrasound 06/03/17 0000 Signed Impressions: Service Date/Time: May 08:12 - CONCLUSION: 1. Patent carotid arteries bilaterally. 2. Antegrade flow involving both vertebral arteries. Alexis Maddox Jr., MD Brain MRI 06/03/17 0000 Signed Impressions: Service Date/Time: May 10:21 - CONCLUSION: No acute intracranial findings. Al Hernandez MD Upper Extremity Ultrasound 06/02/17 0000 Signed Impressions: Service Date/Time: Friday, June 02, 2017 21:42 - CONCLUSION: 1. No DVT identified. Tera Pascal MD Head CT 06/02/17 0000 Signed Impressions: Service Date/Time: Friday, June 02, 2017 18:12 - CONCLUSION: 1. Postsurgical changes in the posterior fossa. No acute intercranial abnormality identified. 2. Stable compared to a prior examination dated 12/04/16. Tera Pascal MD Objective Remarks GENERAL: Well-nourished, well-developed middle aged male patient in [facility]. SKIN: Warm and dry. No rash. HEENT: Evidence of prior right craniectomy. Pupils equal and round. Mucous membranes pink and moist. NECK: Supple. Trachea midline. CARDIOVASCULAR: Regular rate and rhythm. S1, S2 noted. No murmur appreciated. RESPIRATORY: No accessory muscle use. Clear to auscultation. Breath sounds equal bilaterally. GASTROINTESTINAL: Abdomen soft, non-tender, nondistended. Normoactive bowel sounds x4. MUSCULOSKELETAL: No obvious deformities. Extremities without clubbing, cyanosis , or edema. NEUROLOGICAL: Awake and alert. 4.5/5 muscle strength of LUE/LLE, and 5/5 strength of RUE/RLE. Some expressive aphasia, slow to answer, but is appropriate response. PSYCHIATRIC: Appropriate mood and affect; insight and judgment normal. Medications and IVs Current Medications Medications (Trade) Dose Ordered Sig/Demetris Route Start Time Stop Time Status Last Admin (NS Flush) 2 ml BID IV FLUSH 06/03/17 09:00 (NS Flush) 2 ml UNSCH PRN IV FLUSH 06/02/17 23:30 (NovoLOG SUPPLEMENTAL SCALE) 1 ACHS SQ 06/03/17 08:00 (D50w (Vial) Inj) 50 ml UNSCH PRN IV PUSH 06/02/17 23:30 (Glucagon Inj) 1 mg UNSCH PRN OTHER 06/02/17 23:30 (Cardizem) 30 mg Q6HR PO 06/03/17 06:00 06/03/17 13:19 Sodium Chloride 1,000 ml @ 70 mls/hr [id number] IV 06/03/17 03:00 06/03/17 03:12 (Lipitor) 40 mg HS PO 06/03/17 21:00 (Lioresal) 5 mg Q8HR PO 06/03/17 14:00 (Pill Splitter) 1 ea UNSCH PRN OTHER 06/03/17 14:00 A/P Assessment and Plan 41-year-old male with history of malignant hypertension and hemorrhagic stroke August2016 s/p right craniectomy, presents with multiple vague neurological complaints. CVA/TIA: Patient with worsening slurred speech, worsening left-sided weakness, numbness, concerning for CVA. Hx of hemorrhagic stroke August2016 s/p craniectomy by Dr. Ovalles. -Head CT images reviewed and negative for acute process -MRI/MRA brain images reviewed, no acute findings -Carotid ultrasound unremarkable -Echocardiogram ordered and pending -Consult PT/OT/ST -Consult Stroke Navigator -Continue NIHSS, neuro checks, seizure precautions, monitor on telemetry -Neurology and Neurosurgery consulted, appreciate recommendations Hypertension: chronic, BP currently well-controlled -Continue home diltiazem History of Hemorrhagic CVA with Residual LUE/LLE Weakness and Spasms: -Continue baclofen for muscle spasm -Morphine for pain DVT Prophylaxis: teds/SCDs Discharge Planning Pending echo, OT/ST, neurology and neurosurgery evaluation and clearance. [place] PA-C Jun 03, 2017 11:42 am
[2017-06-03] MEDS: BACLOFEN 10 MG TAB PO SCH ×2 (13:53→21:27)
[2017-06-03] MEDS ORDERED: PILL SPLITTER OTHER PRN (14:00)
--- NOTE | 2017-06-03 15:33 | MB ---
cc: ROBB BLANCO DATE OF CONSULTATION 06/03/2017 REASON FOR CONSULTATION This is a 41-year-old right-handed man who was really in very good health until about a year ago, he had a stroke which left him somewhat weak on the left, ataxic on the left, also ataxic on the right side as far as I can tell and he felt like his right-handed is swelling up. He also feels like in the last month or so his skull is more depressed on the right side after the postop area than it had been before. No headaches nor fever. He also feels like he is last able to do things in general in the last month than he was before. He has been walking with a walker at home and the last time he walked with a walker was two weeks ago. REVIEW OF SYSTEMS He denies any hypertension, diabetes, hypercholesterolemia, [place], CABG, cardiac arrhythmia, stent, angioplasty, A. fib, Coumadin, renal, hepatic or pulmonary disease, thyroid disease, lupus, ulcer, cancer, or seizure. SOCIAL HISTORY Not a smoker. Occasionally has a drink. Lives with his . 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 FAMILY HISTORY Negative for cancer, seizure, or stroke. The patient has not been seen by neurology before. He was seen on August [address] Ovalles of neurosurgery who noted a had sudden change with a headache at work which progressively worsened, confusion, nausea and vomiting. CT scan showed a large right cerebellar hemorrhage into the lateral portion of the brain stem and isaac, compression of the fourth ventricle, mild hydrocephalous. He did not have significant past medical history. He has had some, since that time, malignant hypertension. The note says he thought his speech was a bit more slurred, some tingling in his hands and left foot, some increased left-sided weakness possibly. PAST MEDICAL HISTORY As above, also history of trache and PEG in the past, but not currently. MEDICATIONS 1. Ultram 2. Cardizem 3. Baclofen 20 q.i.d. ALLERGIES NO KNOWN DRUG ALLERGIES. PHYSICAL EXAM VITAL SIGNS: Afebrile, 76, 18 122/73. He has not had high blood pressures since he has been in the hospital. NECK: There were no carotid bruits. HEART: Regular rhythm, I did not detect a murmur. NEUROLOGICAL EXAM: Pupils are equal, visual garces are full. Extraocular movements intact without nystagmus. Face is symmetric. Tongue was midline. There is a left drift. He had best testing normal strength in the right upper extremity in the triceps, finger extensors, iliopsoas, tibialis anterior and in the left upper extremity, I would put him in about a 4+, 5- in the left triceps. Finger extensors, 5-/5, iliopsoas 5-/5, tibialis anterior 5/5. DTRs, he is hyperreflexic on the left. His toes were downgoing bilaterally. He is very ataxic on the left side leg and arm and slightly on the right arm slightly ataxic, not in the right leg. Pinprick was diminished left face, arm and leg. Speech is slightly dysarthric but fluent. He is not aphasic. LABORATORY DATA CBC was normal. Hepatitis screen last time was normal. Urine drug screen is negative. UA on this admissions essentially unremarkable. Protein was 100. Coags normal in the past. CBC normal. He had an MRI of his brain done showed no acute findings. He had a carotid ultrasound done which was normal. He had a MRA of the [place] which was normal and a CT scan of his brain showed the postsurgical changes. The right skull is somewhat concave. I do not have anything old to compare it to. Review of the MRI films. IMPRESSION There is nothing new found on the MRI. His carotid ultrasound has been negative. He has significant right cerebellar encephalomalacia, but it did effect the lateral, posterior aspects of the isaac and possibly the upper medula. He has been left with a left hemisensory loss, some severe left-sided ataxia much more than weakness and a little bit a right upper extremity ataxia. I am not sure I can fully explain the right upper extremity ataxia. We will check some orthostatics on him, some additional blood work, have neurosurgery see him for what he feels is increased depression of his cranium on the right side. In addition, I would lower his baclofen. It might be that he is on a fair amount of baclofen and considering he was not particularly spastic, he may not need to be on that at all and he might feel quite better after that. He did have some ankle clonus much more on the left just three beats on the right and we will keep an eye on that, but we will watch his tone and at this point I am going to drop his baclofen down to 5 mg t.i.d. and see if he feels better on that. He says he had no other new medicine change recently. It might be that on a lower dose of baclofen he might actually feel quite a bit better. The Ultram also could make him feel generally weak as it is a synthetic narcotic. MD ASIA Vallejo/PETE /1:17 PM /2:38 PM
[2017-06-03 17:03] LABS: HEMOGLOBIN A1C 5.5 % (4.3-6.0)
--- NOTE | 2017-06-03 18:45 | HHI.NSPN ---
(Edgar Wallace) History Chief Complaint: surgical site atrophy. (Edgar Wallace) Interval History This is a 41-year-old male who has previously undergone a right suboccipital craniectomy with evacuation of cerebellar hemorrhage as well as a right frontal juliana hole ventriculostomy placement by Dr. Ovalles on 09/01/16. He had a very poor exam on initial presentation in August 2016 and has made a remarkable recovery and is now walking using a walker. Neurosurgery was asked to see the patient for what the patient thought was his skull being more depressed in the right occipital and temporal area. (Edgar Wallace) Review of Systems General: Negative for: fever, chills, insomnia Respiratory: Negative for: shortness of breath, cough, sputum Cardiovascular: Negative for: chest pain Gastrointestinal: Negative for: nausea, vomitting, diarrhea, constipation ( Edgar Wallace) Exam Results Vital Signs Date Time Temp Pulse Resp B/P (MAP) Pulse Ox O2 Delivery O2 Flow Rate FiO2 06/03/17 16:10 98.1 91 18 126/65 (85) 97 06/02/17 23:14 Room Air Intake and Output 06/03/17 06/03/17 06/04/17 08:00 16:00 00:00 Intake Total 50 ml Balance 50 ml (Edgar Wallace) Physical Examination General: Pt resting in bed in no acute distress and with stable vital signs Head: Pt has muscle atrophy of the right temporalis muscle as well as where his large right suboccipital craniectomy site is. Eyes: Pupils 3mm bilaterally sclera anicteric. Resp: CTA bilaterally. Heart: NSR no murmurs Abd: Soft positive bs Skin: No cyanosis or erythema. Right occipital incision is well healed without signs of infection Muscle: Pt moves all 4 extremities although has a left hemiparesis this has improved from his initial hemiplegia. Left sided strength is about 4/5. Right Neuro: Pt awake and alert. Pupils 3mm bilaterally and reactive bilaterally. He is able to verbalize with some dysarthric speech. He has decreased sensation in the left face and left side of his body. He follows commands well. (Edgar Wallace) Lab, Micro, Other Results Last Impressions Head Magnetic Resonance Angiography 06/03/17 0000 Signed Impressions: Service Date/Time: May 10:21 - CONCLUSION: Normal examination. Al Hernandez MD Carotid Artery Ultrasound 06/03/17 0000 Signed Impressions: Service Date/Time: May 08:12 - CONCLUSION: 1. Patent carotid arteries bilaterally. 2. Antegrade flow involving both vertebral arteries. Alexis Maddox Jr., MD Brain MRI 06/03/17 0000 Signed Impressions: Service Date/Time: May 10:21 - CONCLUSION: No acute intracranial findings. Al Hernandez MD Upper Extremity Ultrasound 06/02/17 0000 Signed Impressions: Service Date/Time: Friday, June 02, 2017 21:42 - CONCLUSION: 1. No DVT identified. Tera Pascal MD Head CT 06/02/17 0000 Signed Impressions: Service Date/Time: Friday, June 02, 2017 18:12 - CONCLUSION: 1. Postsurgical changes in the posterior fossa. No acute intercranial abnormality identified. 2. Stable compared to a prior examination dated 12/04/16. Tera Pascal MD Laboratory Tests Test 06/02/17 21:20 06/03/17 00:38 06/03/17 06:10 06/03/17 15:18 White Blood Count 6.3 TH/MM3 6.5 TH/MM3 Red Blood Count 6.39 MIL/MM3 5.44 MIL/MM3 Hemoglobin 17.6 GM/DL 14.8 GM/DL Hematocrit 51.9 % 44.9 % Mean Corpuscular Volume 81.2 FL 82.7 FL Mean Corpuscular Hemoglobin 27.5 PG 27.2 PG Mean Corpuscular Hemoglobin Concent 33.9 % 32.9 % Red Cell Distribution Width 16.0 % 16.1 % Platelet Count 257 TH/MM3 248 TH/MM3 Mean Platelet Volume 8.3 FL 8.5 FL Neutrophils (%) (Auto) 44.6 % 41.5 % Lymphocytes (%) (Auto) 40.9 % 43.3 % Monocytes (%) (Auto) 13.0 % 13.5 % Eosinophils (%) (Auto) 1.1 % 1.2 % Basophils (%) (Auto) 0.4 % 0.5 % Neutrophils # (Auto) 2.8 TH/MM3 2.7 TH/MM3 Lymphocytes # (Auto) 2.6 TH/MM3 2.8 TH/MM3 Monocytes # (Auto) 0.8 TH/MM3 0.9 TH/MM3 Eosinophils # (Auto) 0.1 TH/MM3 0.1 TH/MM3 Basophils # (Auto) 0.0 TH/MM3 0.0 TH/MM3 CBC Comment DIFF FINAL DIFF FINAL Differential Comment Blood Urea Nitrogen 10 MG/DL 9 MG/DL Creatinine 1.22 MG/DL 1.05 MG/DL Random Glucose 73 MG/DL 85 MG/DL Calcium Level 9.6 MG/DL 8.6 MG/DL Sodium Level 136 MEQ/L 140 MEQ/L Potassium Level 4.7 MEQ/L 3.8 MEQ/L Chloride Level 103 MEQ/L 105 MEQ/L Carbon Dioxide Level 26.6 MEQ/L 29.5 MEQ/L Anion Gap 6 MEQ/L 6 MEQ/L Estimat Glomerular Filtration Rate 80 ML/MIN 95 ML/MIN Urine Color YELLOW Urine Turbidity CLEAR Urine pH 6.5 Urine Specific [place] 1.016 Urine Protein 100 mg/dL Urine Glucose (UA) NEG mg/dL Urine Ketones NEG mg/dL Urine Occult Blood NEG Urine Nitrite NEG Urine Bilirubin NEG Urine Urobilinogen LESS THAN 2.0 MG/DL Urine Leukocyte Esterase NEG Urine RBC LESS THAN 1 /hpf Urine WBC 1 /hpf Urine Mucus FEW /lpf Microscopic Urinalysis Comment CATH-CULT NOT IND Urine Opiates Screen NEG Urine Barbiturates Screen NEG Urine Amphetamines Screen NEG Urine Benzodiazepines Screen NEG Urine Cocaine Screen NEG Urine Cannabinoids Screen NEG Hemoglobin A1c 5.5 % Total Bilirubin 0.5 MG/DL Direct Bilirubin 0.1 MG/DL Indirect Bilirubin 0.4 MG/DL Aspartate Amino Transf (AST/SGOT) 12 U/L Alanine Aminotransferase (ALT/SGPT) 14 U/L Alkaline Phosphatase 84 U/L Total Protein 7.1 GM/DL Albumin 2.9 GM/DL Triglycerides Level 195 MG/DL Cholesterol Level 210 MG/DL LDL Cholesterol 124 MG/DL HDL Cholesterol 47.5 MG/DL Cholesterol/HDL Ratio 4.42 RATIO Erythrocyte Sedimentation Rate 1 mm/hr Vitamin B12 Level 733 PG/ML (Edgar Wallace) Medical Decision Making Impression and Plan A: 41 y/o M who underwent a right suboccipital craniectomy with evacuation of cerebellar hemorrhage and right frontal bur hole ventriculostomy placement. CT of the head reveals expected right suboccipital craniectomy defect and encephalomalacia changes from his cerebellar ICH. There is no depression of skull in right temporal or suboccipital area on bone windows other than his suboccipital craniectomy defect. The area pt points to is his temporalis muscle and also the suboccipital surgical site which is postoperative atrophy of the muscle. There was no acute findings found on CT or MRI of the brain. There are no acute neurosurgical issues at this time. P: Pt should continue with his rehab and he has made a remarkable recovery. Continue with Neurology work up. Currently no acute neurosurgical issues at this time. (Edgar Wallace) Attending Statement I agree with above. (Gutierrez Ovalles MD) dEgar Wallace Jun 03, 2017 18:45 Gutierrez Ovalles MD Jun 04, 2017 09:09
--- NOTE | 2017-06-03 19:30 | ECHRPT ---
Indication: CVA/TIA CONCLUSIONS The left ventricular systolic function is normal with an estimated ejection fraction in the range of 55-60%. Mild concentric left ventricular hypertrophy. Normal left ventricular size. There is mild tricuspid valve regurgitation. The estimated pulmonary arterial pressure is 33.4 mmHg. BP: / HR: 80 Rhythm: Sinus MEASUREMENTS (Male / Female) Normal Values Technical Quality:Good 2D ECHO LV Diastolic Diameter PLAX 4.7 cm 4.2 - 5.9 / 3.9 - 5.3 cm LV Systolic Diameter PLAX 3.5 cm IVS Diastolic Thickness 1.3 cm 0.6 - 1.0 / 0.6 - 0.9 cm LVPW Diastolic Thickness 1.3 cm 0.6 - 1.0 / 0.6 - 0.9 cm LV Relative Wall Thickness 0.5 LVOT Diameter 2.2 cm M-MODE Aortic Root Diameter MM 2.6 cm LA Systolic Diameter MM 3.4 cm LA Ao Ratio MM 1.3 AV Cusp Separation MM 1.7 cm DOPPLER AV Peak Velocity 115.0 cm/s AV Peak Gradient 5.3 mmHg LVOT Peak Velocity 83.9 cm/s LVOT Peak Gradient 2.8 mmHg AV Area Cont Eq pk 2.8 cm Mitral E Point Velocity 72.1 cm/s Mitral A Point Velocity 42.9 cm/s Mitral E to A Ratio 1.7 LV E' Lateral Velocity 7.5 cm/s Mitral E to LV E' Lateral Ratio 9.6 LV E' Septal Velocity 7.3 cm/s Mitral E to LV E' Septal Ratio 9.9 TR Peak Velocity 242.0 cm/s TR Peak Gradient 23.4 mmHg Right Atrial Pressure 10.0 mmHg Pulmonary Artery Systolic Pressu 33.4 mmHg Right Ventricular Systolic Press 33.4 mmHg PV Peak Velocity 88.2 cm/s PV Peak Gradient 3.1 mmHg FINDINGS LEFT VENTRICLE The left ventricular systolic function is normal with an estimated ejection fraction in the range of 55-60%. Mild concentric left ventricular hypertrophy. Normal left ventricular size. RIGHT VENTRICLE Normal right ventricular size and systolic function. LEFT ATRIUM The left atrial size is normal. RIGHT ATRIUM The right atrial size is normal. ATRIAL SEPTUM Normal atrial septal thickness without atrial level shunting by limited color doppler interrogation. AORTA The aortic root and proximal ascending aorta are normal in size on limited imaging. MITRAL VALVE Structurally normal mitral valve. No mitral valve stenosis or regurgitation. AORTIC VALVE Trileaflet aortic valve. No aortic valve stenosis or regurgitation. TRICUSPID VALVE There is mild tricuspid valve regurgitation. The estimated pulmonary arterial pressure is 33.4 mmHg. PULMONARY VALVE No pulmonary valve regurgitation or stenosis. VESSELS The inferior vena cava is normal in size. PERICARDIUM No pericardial effusion. James Martinez MD, FACC, [facility] [place] (Electronically Signed) Final Date:03 June 2017 19:29
[2017-06-03] MEDS ORDERED: ATORVASTATIN 40 MG TAB PO SCH (21:00)
[2017-06-04] VITALS: PULSE 78
[2017-06-04] MEDS: DILTIAZEM HCL 30 MG TAB PO SCH ×2 (00:40→05:40)
[2017-06-04 03:34] VITALS: BP 121/73; PULSE 80; RESP 16; TEMP 97.5; O2SAT 100
[2017-06-04 04:00] VITALS: PULSE 84
[2017-06-04] MEDS: BACLOFEN 10 MG TAB PO SCH (05:40)
[2017-06-04] MEDS: SODIUM CHLOR 0.9% 1000 ML INJ 1,000 ML IV SCH (05:42)
--- NOTE | 2017-06-04 07:01 | HHI.PR ---
Objective Vital Signs Date Time Temp Pulse Resp B/P (MAP) Pulse Ox O2 Delivery O2 Flow Rate FiO2 06/04/17 04:00 84 06/04/17 03:34 97.5 80 16 121/73 (89) 100 06/04/17 00:00 78 06/03/17 23:18 97.7 82 16 126/69 (88) 98 06/03/17 20:50 98.2 93 139/75 (96) 98 163/97 (119) 118/65 (82) 06/03/17 20:00 96 06/03/17 16:10 98.1 91 18 126/65 (85) 97 06/03/17 15:00 107 06/03/17 12:32 97.4 76 18 122/73 (89) 96 06/03/17 08:00 65 06/03/17 07:35 97.7 73 18 128/78 (95) 97 I/O 06/03/17 06/03/17 06/03/17 06/04/17 06/04/17 06/04/17 07:00 15:00 23:00 07:00 15:00 23:00 Intake Total 50 ml 750 ml Balance 50 ml 750 ml Intake Oral 50 ml 750 ml # Voids 1 7 Result Diagram: 06/03/17 0610 06/03/17 0610 Objective Remarks awake alert some inc tone lle speech dysarthric no changes moves all Assessment and Plan Assessment and Plan imp r skull change due to muscle atrophy not much change on lower baclofen dose but i would keep this up at lower dose and see how does over next week should fu with dr perez stand bp and labs all ok mri neg no vertigo ok dc nothing new and deficits he has are cw his injury Luis James MD Jun 04, 2017 07:01
[2017-06-04 07:28] VITALS: BP 127/83; PULSE 84; RESP 18; TEMP 97.4; O2SAT 96
[2017-06-04] MEDS: INSULIN ASPART SUPPLEMENTAL SCALE SQ SCH (08:00)
[2017-06-04] MEDS: SODIUM CHLORIDE 0.9% FLUSH 10 ML FLUSH IV FLUSH SCH (09:00)
[2017-06-04] MEDS ORDERED: ATOR40TA16 PO (09:27)
[2017-06-04] MEDS ORDERED: BACL10TA PO (09:27)
--- NOTE | 2017-06-04 09:28 | HHI.DCPOC ---
Discharge Care Plan Diagnosis: (1) Hyperlipidemia (2) CVA, old, dysarthria (3) Hypertension Goals to Promote Your Health * To prevent worsening of your condition and complications * To maintain your health at the optimal level Directions to Meet Your Goals Take your medications as prescribed Follow your dietary instruction Follow activity as directed Keep your appointments as scheduled Take your immunizations and boosters as scheduled If your symptoms worsen call your PCP, if no PCP go to Urgent Care Center or Emergency Room Smoking is Dangerous to Your Health. Avoid second hand smoke Call the 24-hour hour crisis hotline for domestic abuse at [place] PA-C Jun 04, 2017 9:28 am
--- NOTE | 2017-06-04 10:03 | HHI.PR ---
Subjective Remarks Follow up for weakness, dysarthria. The patient is seen sitting upright on side of bed eating. at bedside. The patient reports feeling better, denies any worsening left sided weakness, visual changes, or speech impairment. He wants to go home. Discussed all results of imaging studies with patient and . Discussed recommendations to start on statin and Dr. James's recommendations to decrease baclofen dosing, patient and verbalized understanding. No new medical complaints at this time. Encouraged to continue rehab efforts. Objective Vitals Vital Signs Date Time Temp Pulse Resp B/P (MAP) Pulse Ox O2 Delivery O2 Flow Rate FiO2 06/04/17 07:28 97.4 84 18 127/83 (98) 96 06/04/17 04:00 84 06/04/17 03:34 97.5 80 16 121/73 (89) 100 06/04/17 00:00 78 06/03/17 23:18 97.7 82 16 126/69 (88) 98 06/03/17 20:50 98.2 93 139/75 (96) 98 163/97 (119) 118/65 (82) 06/03/17 20:00 96 06/03/17 16:10 98.1 91 18 126/65 (85) 97 06/03/17 15:00 107 06/03/17 12:32 97.4 76 18 122/73 (89) 96 I/O 06/03/17 06/03/17 06/03/17 06/04/17 06/04/17 06/04/17 07:00 15:00 23:00 07:00 15:00 23:00 Intake Total 50 ml 750 ml Output Total 300 ml Balance 50 ml 750 ml -300 ml Intake Oral 50 ml 750 ml Output Urine Total 300 ml # Voids 1 7 Result Diagram: 06/03/17 0610 06/03/17 0610 Imaging Last Impressions Head Magnetic Resonance Angiography 06/03/17 0000 Signed Impressions: Service Date/Time: May 10:21 - CONCLUSION: Normal examination. Al Hernandez MD Carotid Artery Ultrasound 06/03/17 0000 Signed Impressions: Service Date/Time: May 08:12 - CONCLUSION: 1. Patent carotid arteries bilaterally. 2. Antegrade flow involving both vertebral arteries. Alexis Maddox Jr., MD Brain MRI 06/03/17 0000 Signed Impressions: Service Date/Time: May 10:21 - CONCLUSION: No acute intracranial findings. Al Hernandez MD Upper Extremity Ultrasound 06/02/17 0000 Signed Impressions: Service Date/Time: Friday, June 02, 2017 21:42 - CONCLUSION: 1. No DVT identified. Tera Pascal MD Head CT 06/02/17 0000 Signed Impressions: Service Date/Time: Friday, June 02, 2017 18:12 - CONCLUSION: 1. Postsurgical changes in the posterior fossa. No acute intercranial abnormality identified. 2. Stable compared to a prior examination dated 12/04/16. Tera Pascal MD Objective Remarks GENERAL: Well-nourished, well-developed middle aged male patient in [facility]. SKIN: Warm and dry. No rash. HEENT: Evidence of prior right craniectomy. Pupils equal and round. Mucous membranes pink and moist. CARDIOVASCULAR: Regular rate and rhythm. S1, S2 noted. No murmur appreciated. RESPIRATORY: No accessory muscle use. Clear to auscultation. Breath sounds equal bilaterally. GASTROINTESTINAL: Abdomen soft, non-tender, nondistended. Normoactive bowel sounds x4. MUSCULOSKELETAL: No obvious deformities. Extremities without clubbing, cyanosis , or edema. NEUROLOGICAL: Awake and alert. 4.5/5 muscle strength of LUE/LLE, and 5/5 strength of RUE/RLE. Speech dysarthric, slow to answer, but appropriate responses. PSYCHIATRIC: Appropriate mood and affect; insight and judgment normal. Medications and IVs Current Medications Medications (Trade) Dose Ordered Sig/Demetris Route Start Time Stop Time Status Last Admin (NS Flush) 2 ml BID IV FLUSH 06/03/17 09:00 (NS Flush) 2 ml UNSCH PRN IV FLUSH 06/02/17 23:30 (NovoLOG SUPPLEMENTAL SCALE) 1 ACHS SQ 06/03/17 08:00 (D50w (Vial) Inj) 50 ml UNSCH PRN IV PUSH 06/02/17 23:30 (Glucagon Inj) 1 mg UNSCH PRN OTHER 06/02/17 23:30 (Cardizem) 30 mg Q6HR PO 06/03/17 06:00 06/04/17 05:40 Sodium Chloride 1,000 ml @ 70 mls/hr [id number] IV 06/03/17 03:00 06/04/17 05:42 (Lipitor) 40 mg HS PO 06/03/17 21:00 06/03/17 21:26 (Lioresal) 5 mg Q8HR PO 06/03/17 14:00 06/04/17 05:40 (Pill Splitter) 1 ea UNSCH PRN OTHER 06/03/17 14:00 A/P Assessment and Plan 41-year-old male with history of malignant hypertension and hemorrhagic stroke August2016 s/p right craniectomy, presents with multiple vague neurological complaints. CVA/TIA: Patient with worsening slurred speech, worsening left-sided weakness, numbness, concerning for CVA. Hx of hemorrhagic stroke August2016 s/p craniectomy by Dr. Ovalles. -Head CT images reviewed and negative for acute process -MRI/MRA brain images reviewed, no acute findings -Carotid ultrasound unremarkable -Echocardiogram with EF 55-60% -Consult PT/OT/ST, recommends to continue outpatient physical therapy ( patient already goes to the [address] [place] [address] for rehab, follows with Dr. Healy) -Consult Stroke Navigator -Continue NIHSS, neuro checks, seizure precautions, monitor on telemetry -Patient concerned for increasing depression at site of prior craniectomy; Neurosurgery consulted, likely secondary to temporal muscle wasting; no acute neurosurgical intervention -Neurology consulted, recommended to decrease baclofen dosing, cleared for discharge with unremarkable work up as above Hypertension: chronic, BP currently well-controlled -Continue home diltiazem History of Hemorrhagic CVA with Residual LUE/LLE Weakness and Spasms: -Continue baclofen for muscle spasm (dose decreased) -Morphine for pain Hyperlipidemia: Lipid panel remarkable for cholesterol 210, LDL 124, and trigylcerides 195 -LFTs wnl -started on statin, discussed with patient and -outpatient f/up DVT Prophylaxis: teds/SCDs Discharge Planning Discharge patient to home Condition on discharge: Stable Heart Healthy Diet as tolerated Ad Clementina activity Rx written: atorvastatin 40mg hs, baclofen 5mg q8h Follow-up with primary care physician, Dr. Healy, and neurology Belle Gómez PA-C Jun 04, 2017 10:03 am
== END 2017-06-04 11:18 | disposition home or self-care (01) ==
LOC: NEPC 16:28 → NEDA 22:43 → NEPHCDU 23:02
PROVIDERS: ADMIT Family Medicine; ATTEND Family Medicine
DX: R53.1 Weakness (principal); I10 Essential (primary) hypertension; H02.401 Unspecified ptosis of right eyelid; R47.01 Aphasia; M79.89 Other specified soft tissue disorders; R27.0 Ataxia, unspecified; G93.89 Other specified disorders of brain; M62.50 Muscle wasting and atrophy, not elsewhere classified, unspecified site; E78.5 Hyperlipidemia, unspecified; I69.322 Dysarthria following cerebral infarction
CPT/HCPCS: 70450; 70544; 70551; 80048; 80061; 80076; 80307; 81001; 82607; 82948; 83036; 84425; 85025; 85652; 86592; 93306; 93880; 93971; 96360; 96361; 96372; 97162; 99285; G0378; G8987; G8988; J1650; J7030